=== PATIENT | female | born 1950 | race Caucasian/White ===

== ENCOUNTER 2020-03-07 06:08 | Outpatient (REF) | payer MEDICARE, SELFPAY ==
[2020-03-07 07:32] LABS: Glucose Urine UA NEG (NEG); Leukocyte Esterase Urine 2+ (NEG); Nitrite Urine NEG (NEG); PH 6.5 (5.0-8.0); Specific Gravity - Urine <= 1.005 (1.005-1.025); Urine Blood 2+ (NEG); Urine Ketones NEG (NEG); Urine Protein NEG (NEG-TRACE)
[2020-03-07 07:34] LABS: Appearance Urine CLOUDY; Color Urine YELLOW
[2020-03-07 07:47] LABS: Bacteria Urine 3+ /LPF; Squamous Epithelial Cell Urine 1+ /LPF
== END 2020-03-07 06:09 | disposition home or self-care (01) ==
LOC: HO.LAB 06:08
PROVIDERS: PCP Internal Medicine; Visit Provider Internal Medicine
DX: R30.0 Dysuria (principal)
CPT/HCPCS: 81001

== ENCOUNTER 2020-03-29 14:20 | Outpatient (REF) | payer MEDICARE, SELFPAY ==
[2020-03-29 16:32] LABS: Vitamin D 25-OH Total 25.1 ng/mL (>30)
== END 2020-03-29 14:21 | disposition home or self-care (01) ==
LOC: HO.LAB 14:20
PROVIDERS: PCP Internal Medicine; Visit Provider Surgery
DX: E55.9 Vitamin D deficiency, unspecified (principal)
CPT/HCPCS: 82306

== ENCOUNTER → 2020-05-23 07:55 | Outpatient (BNVA) | payer MEDICARE, SELFPAY | PROVIDERS: PCP Internal Medicine; Visit Provider Obstetrics & Gynecology | DX: N81.11 Cystocele, midline (principal) | CPT/HCPCS: 57160; 99212 ==

== ENCOUNTER → 2020-05-25 10:49 | Outpatient (BNVA) | payer MEDICARE, SELFPAY | PROVIDERS: PCP Internal Medicine; Visit Provider Urology | DX: N81.11 Cystocele, midline (principal) | CPT/HCPCS: 99202 ==

== ENCOUNTER → 2020-05-30 08:11 | Outpatient (BNVA) | payer MEDICARE, SELFPAY | PROVIDERS: PCP Internal Medicine; Visit Provider Dietitian, Registered | DX: Z76.89 Persons encountering health services in other specified circumstances (principal) ==

== ENCOUNTER 2020-05-30 15:54 | Outpatient (REF) | payer MEDICARE, SELFPAY | END 2020-05-30 15:55 | disposition home or self-care (01) | LOC: HO.LAB 15:54 | PROVIDERS: PCP Internal Medicine; Visit Provider Internal Medicine | DX: Z20.828 Contact with and (suspected) exposure to other viral communicable diseases (principal) | CPT/HCPCS: 36415; C9803; U0003 ==

== ENCOUNTER → 2020-06-08 10:59 | Outpatient (BNVA) | payer MEDICARE, SELFPAY | PROVIDERS: PCP Internal Medicine; Visit Provider Urology | DX: N81.11 Cystocele, midline (principal); Z79.899 Other long term (current) drug therapy | CPT/HCPCS: 52000; 99212 ==

== ENCOUNTER 2020-06-15 05:57 | Outpatient (REF) | payer MEDICARE, SELFPAY ==
[2020-06-15 07:58] LABS: MANUAL DIFF FLAG NO
[2020-06-15 08:12] LABS: Basophils Percent Auto 0.2 % (0-2); Eosinophils Absolute Auto 0.3 X10*3/uL (0.0-0.4); Eosinophils Percent Auto 7.7 % (0-4); Hematocrit 36.1 % (37-47); Hemoglobin 11.7 g/dl (12.0-16.0); Imm Gran Abs Auto 0.01 X10*3/uL (0.00-0.03); Imm Gran Pct Auto 0.2 % (0.0-0.4); Lymphocytes Absolute Auto 1.4 X10*3/uL (1.2-4.9); Lymphocytes Percent Auto 32.5 % (20-40); Mean Corpuscular HGB Conc 32.4 g/dl (31.0-35.0); Mean Corpuscular Hemoglobin 29.5 pg (27.0-33.0); Mean Corpuscular Volume 91.2 fL (80-98); Mean Platelet Volume 10.6 fL (9.4-12.3); Monocytes Absolute Auto 0.5 X10*3/uL (0.1-1.2); Monocytes Percent Auto 11.1 % (2-11); Neutrophils Percent Auto 48.3 % (45-73); Platelet Count 156 X10*3/uL (160-400); Red Blood Count 3.96 X10*6/uL (4.20-5.50); Red Cell Distribution Width 13.2 % (11.0-16.0); White Blood Count 4.2 X10*3/uL (4.8-10.8)
[2020-06-15 08:50] LABS: Alanine Aminotransferase 32 U/L (0-31); Alkaline Phosphatase 117 U/L (39-117); Anion Gap 12 (12-20); Aspartate Amino Transferase 27 U/L (5-31); Bilirubin Total 0.5 mg/dL (0.0-1.0); Blood Urea Nitrogen 32 mg/dL (9-16); Calcium 9.2 mg/dL (8.4-10.2); Carbon Dioxide 27 mmol/L (22-29); Chloride 107 mmol/L (96-108); Cholesterol 105 mg/dL; Estimated Glomerular Filt Rate > 60; Glucose Random 79 mg/dL (60-115); HDL Cholesterol 35 mg/dL; LDL Cholesterol Calculated 53 mg/dl; Potassium 4.4 mmol/l (3.3-5.1); Sodium 142 mmol/L (135-145); Total Protein 6.2 g/dL (6.5-8.0); Triglycerides 89 mg/dL
[2020-06-15 08:54] LABS: Erythrocyte Sedimentation Rate 23 MM/HR (0-20)
[2020-06-15 09:19] LABS: Free T4 (Free Thyroxine) 1.08 ng/dL (0.71-1.85); Thyroid Stimulating Hormone 1.26 uIU/mL (0.32-4.0)
== END 2020-06-15 05:58 | disposition home or self-care (01) ==
LOC: HO.LAB 05:57
PROVIDERS: Visit Provider Internal Medicine
DX: I10 Essential (primary) hypertension (principal); M50.30 Other cervical disc degeneration, unspecified cervical region; J44.9 Chronic obstructive pulmonary disease, unspecified; E78.00 Pure hypercholesterolemia, unspecified
CPT/HCPCS: 36415; 80053; 80061; 84439; 84443; 85025; 85652

== ENCOUNTER 2020-06-15 19:14 | Emergency (ER) | payer MEDICARE, SELFPAY ==
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
[2020-06-15 19:57] VITALS: BP 155/80; PULSE 68; RESP 16; TEMP 36.9; O2SAT 96
--- NOTE | 2020-06-15 20:20 | PC.NURSE ---
pharmacy called for pain med not loaded in pyxis
[2020-06-15] MEDS: Morphine Sulfate 10 MG/ML CARTRIDGE 5 MG IM (20:35)
--- NOTE | 2020-06-15 20:39 | PC.NURSE ---
pt medicated with 5mg morphine as charted to lt deltoid for 10/10 pain to right arm. +cms
[2020-06-15 22:00] VITALS: BP 153/60; PULSE 65; RESP 16; TEMP 36.6; O2SAT 99
== END 2020-06-15 22:38 | disposition home or self-care (01) ==
PROVIDERS: Emergency Provider Emergency Medicine; PCP Internal Medicine
DX: S62.101A Fracture of unspecified carpal bone, right wrist, initial encounter for closed fracture (principal); S62.91XA Unspecified fracture of right hand, initial encounter for closed fracture; M79.641 Pain in right hand; W17.81XA Fall down embankment (hill), initial encounter; Y93.23 Activity, snow (alpine) (downhill) skiing, snowboarding, sledding, tobogganing and snow tubing; Y92.89 Other specified places as the place of occurrence of the external cause; Y99.8 Other external cause status; Z79.899 Other long term (current) drug therapy
CPT/HCPCS: 73110; 73130; 99283; J2270

== ENCOUNTER 2020-06-19 09:52 | Outpatient (REF) | payer MEDICARE, SELFPAY ==
--- NOTE | 2020-06-19 11:15 | XR_ITS ---
EXAMINATION: XR WRIST, RIGHT CLINICAL INFORMATION: M25.531 - Pain in right wrist. Fractures. Follow-up. COMPARISON: Radiographs right hand wrist 06/15/2020, right hand 12/25/2017. TECHNIQUE: PA, lateral, and oblique views of the right wrist. FINDINGS: There is fracture distal radial metaphysis with transverse component and probable vertical component to the distal radioarticular surface without depression. There is mild impaction. Alignment is similar to prior study 06/15/2020. There are degenerative changes again seen lateral carpus. Spiral fracture neck fifth metacarpal is again seen without change in alignment. There is a cleft or nondisplaced fracture medial base third finger proximal phalanx similar to prior study. No acute fracture or dislocation or change in alignment. XR/XR wrist RT min 3V IMPRESSION: 1. Fractures distal radius and fifth metacarpal unchanged in alignment 06/15/2020. 2. Nondisplaced fracture versus fine linear cleft medial base third finger proximal phalanx, stable.
== END 2020-06-19 09:53 | disposition home or self-care (01) ==
LOC: HO.HOSX 09:52
PROVIDERS: PCP Internal Medicine; Visit Provider Orthopaedic Surgery
DX: S52.501A Unspecified fracture of the lower end of right radius, initial encounter for closed fracture (principal); X58.XXXA Exposure to other specified factors, initial encounter; Y93.23 Activity, snow (alpine) (downhill) skiing, snowboarding, sledding, tobogganing and snow tubing; Y92.9 Unspecified place or not applicable; Y99.8 Other external cause status; M25.531 Pain in right wrist; D64.9 Anemia, unspecified; J45.909 Unspecified asthma, uncomplicated; J44.9 Chronic obstructive pulmonary disease, unspecified; I10 Essential (primary) hypertension; E78.00 Pure hypercholesterolemia, unspecified; Z88.2 Allergy status to sulfonamides; Z88.5 Allergy status to narcotic agent; Z88.8 Allergy status to other drugs, medicaments and biological substances; Z91.011 Allergy to milk products
CPT/HCPCS: 25600; 73110; 99202

== ENCOUNTER 2020-06-20 08:26 | Day surgery (SDC) | payer MEDICARE, SELFPAY ==
--- NOTE | 2020-06-19 12:20 | P.CONAN_ITS ---
Documented by User: Nia Davis 06/19/20 12:23 HPI - Anesthesia Eval Consult details Narrative: 69yo F for Cystocele Repair chronic opioids PMFSH Past Medical History Medical History Anemia Asthma COPD (chronic obstructive pulmonary disease) Cystocele DDD (degenerative disc disease), cervical Degenerative disc disease, cervical Deviated septum Esophageal stricture GERD (gastroesophageal reflux disease) Hemorrhoids History of duodenal ulcer History of esophageal dilatation Hypercholesterolemia Hypertension Impaired glucose tolerance Obstructive sleep apnea Osteoarthritis of knees, bilateral Osteopenia Peptic ulcer disease Peripheral neuropathy Peripheral vascular disease RSD (reflex sympathetic dystrophy) Small bowel obstruction Tubular adenoma of colon Vitamin D deficiency Family History Family History Father No problems noted. Mother No problems noted. Surgical History Surgical History History of arthroscopy of left knee History of cholecystectomy History of hemorrhoidectomy History of nasal surgery History of repair of hiatal hernia History of tonsillectomy History of tubal ligation History of umbilical hernia repair Hx of gastric bypass Social History Social History Alcohol intake: never Smoking Status: Never smoker Use of substances other than those prescribed or required for medical reasons: No Have you been hit, kicked, punched, or otherwise hurt by someone within the past year? If so, by whom?: No Advance Directives: No Advance Directives Information Provided: No Recently lost weight without trying: No Current occupational status: retired Current occupation: right handed Gender identity: female Meds Allergies Allergy/AdvReac Type Severity Reaction Status Date / Time hydrochlorothiazide Allergy Severe ANGIOEDEMA Verified 06/19/20 10:17 [HYDROCHLOROTHIAZIDE] lisinopril [LISINOPRIL] Allergy Severe ANGIOEDEMA Verified 06/19/20 10:17 Sulfa (Sulfonamide Allergy Severe FACIAL Verified 06/19/20 10:17 Antibiotics) SWELLING [SULFA (SULFONAMIDE ANTIBIOTICS)] iron [IRON] Allergy Intermediate NAUSEA Verified 06/19/20 10:17 lactose [LACTOSE] Allergy Intermediate DIARRHEA Verified 06/19/20 10:17 sertraline [From ZOLOFT] Allergy Intermediate INSOMNIA Verified 06/19/20 10:17 codeine Allergy Unknown Unknown Verified 06/19/20 10:17 Home Medications Medication Instructions Recorded Confirmed Type betamethasone, augmented 0.05 % 1 applic TOPICAL DAILY PRN 02/28/20 06/08/20 History topical ointment cholecalciferol (vitamin D3) 50 50 mcg PO DAILY 02/28/20 06/08/20 History mcg (2,000 unit) tablet melatonin 3 mg capsule 3 mg PO BEDTIME PRN 02/28/20 06/08/20 History triamcinolone acetonide 0.5 % 1 applic TOPICAL DAILY 02/28/20 06/08/20 History topical cream Exam Exam Date and Time: June 19, 2020 1220 Pertinent Lab Results Pertinent Lab Results: Laboratory Tests 06/15/20 06/15/20 06:04 06:04 WBC 4.2 L Hgb 11.7 L Hct 36.1 L Plt Count 156 L Sodium 142 Potassium 4.4 Chloride 107 Carbon Dioxide 27 BUN 32 H Creatinine 0.70 Assessment and Plan Assessment Anesthesia Assessment: Chart Reviewed Documented by User: Sanjuanita Read 06/20/20 09:10 [facility] Past Medical History Medical History Anemia Asthma COPD (chronic obstructive pulmonary disease) Cystocele DDD (degenerative disc disease), cervical Degenerative disc disease, cervical Deviated septum Esophageal stricture GERD (gastroesophageal reflux disease) Hemorrhoids History of duodenal ulcer History of esophageal dilatation Hypercholesterolemia Hypertension Impaired glucose tolerance Obstructive sleep apnea Osteoarthritis of knees, bilateral Osteopenia Peptic ulcer disease Peripheral neuropathy Peripheral vascular disease RSD (reflex sympathetic dystrophy) Small bowel obstruction Tubular adenoma of colon Vitamin D deficiency Family History Family History Father No problems noted. Mother No problems noted. Surgical History Surgical History History of arthroscopy of left knee History of cholecystectomy History of hemorrhoidectomy History of nasal surgery History of repair of hiatal hernia History of tonsillectomy History of tubal ligation History of umbilical hernia repair Hx of gastric bypass Social History Social History Alcohol intake: never Smoking Status: Never smoker Use of substances other than those prescribed or required for medical reasons: No Have you been hit, kicked, punched, or otherwise hurt by someone within the past year? If so, by whom?: No Advance Directives: No Advance Directives Information Provided: No Recently lost weight without trying: No Current occupational status: retired Current occupation: right handed Gender identity: female Meds Allergies Allergy/AdvReac Type Severity Reaction Status Date / Time hydrochlorothiazide Allergy Severe ANGIOEDEMA Verified 06/19/20 10:17 [HYDROCHLOROTHIAZIDE] lisinopril [LISINOPRIL] Allergy Severe ANGIOEDEMA Verified 06/19/20 10:17 Sulfa (Sulfonamide Allergy Severe FACIAL Verified 06/19/20 10:17 Antibiotics) SWELLING [SULFA (SULFONAMIDE ANTIBIOTICS)] iron [IRON] Allergy Intermediate NAUSEA Verified 06/19/20 10:17 lactose [LACTOSE] Allergy Intermediate DIARRHEA Verified 06/19/20 10:17 sertraline [From ZOLOFT] Allergy Intermediate INSOMNIA Verified 06/19/20 10:17 codeine Allergy Unknown Unknown Verified 06/19/20 10:17 Home Medications Medication Instructions Recorded Confirmed Type betamethasone, augmented 0.05 % 1 applic TOPICAL DAILY PRN 02/28/20 06/08/20 History topical ointment cholecalciferol (vitamin D3) 50 50 mcg PO DAILY 02/28/20 06/08/20 History mcg (2,000 unit) tablet melatonin 3 mg capsule 3 mg PO BEDTIME PRN 02/28/20 06/08/20 History triamcinolone acetonide 0.5 % 1 applic TOPICAL DAILY 02/28/20 06/08/20 History topical cream Exam Airway Mallampati Class: II TM Dist: >3cm Neck ROM: Full Denture: Upper and Lower Assessment and Plan Assessment Anesthesia Assessment: Anesthesia Plan Discussed and Chart Reviewed Final Anesthetic Review NPO: Yes ASA Class: III Final Preanesthetic Review: No Changes in Pt Med Stat, Meds/Allgs Chart Reviewed, Consent Obtained/Reviewed and Anes Risks/Benef Reviewed Patient Risk: Intermediate Procedure Risk: Low Assessment/Block/Sedation in SS: Assess/Block/Sedation- Anesthetic Plan Anesthetic Plan: GA Disposition: Standard PACU
[2020-06-19 16:07] VITALS: BMI 28.3
[2020-06-20] VITALS (11 sets, daily range): BP systolic 134–166; BP diastolic 51–80; PULSE 50–64; RESP 16–18; TEMP 36.4–36.9; O2SAT 92–98
[2020-06-20] MEDS: Lactated Ringers 1,000 ML 100 ML IVCONT (09:16)
[2020-06-20] MEDS: ceFAZolin Sodium/Dextrose,Iso 2 GM/50 ML PIGGYBACK IV (09:30)
--- NOTE | 2020-06-20 10:29 | PM.OP ---
Brief Operative Note Date of Service: 06/20/20 Pre-op diagnosis: cystocele Post-op diagnosis: same Procedure: cystocele repair Implants: mesh Surgeon: Jaden Chandler III, MD Anesthesia: GLMA and local Estimated blood loss (mL): 100 Pathology: none sent Condition: stable Disposition: same day
[2020-06-20] MEDS: oxyCODONE HCl Immed Release 5 MG TABLET PO (10:57)
[2020-06-20] MEDS: fentaNYL citrate/PF 100 MCG/2 ML VIAL 50 MCG IVPUSH ×2 (10:57→11:06)
--- NOTE | 2020-06-20 12:09 | OP_ITS ---
SURGEON: Jaden Chandler III, MD PREOPERATIVE DIAGNOSIS: Cystocele. POSTOPERATIVE DIAGNOSIS: Cystocele. PROCEDURE PERFORMED: Cystocele repair with mesh. ESTIMATED BLOOD LOSS: 100 mL. COMPLICATIONS: None. ANESTHESIA: General. ASSISTANTS: SPECIMENS: None. DRAINS: Rouse catheter. DESCRIPTION OF PROCEDURE: The patient was taken to the operating room. After adequate anesthesia was obtained, a time-out was done demonstrating correct patient, correct procedure. Following this, the patient was placed in dorsal lithotomy position and had a Rouse catheter vaginal retractor placed. The patient had the midpoint of her cystocele grasped with an Allis and then pulled forward, and the anterior vaginal wall was injected with local. Midline incision was made and carried out laterally to reduce the cystocele, which was done bluntly and sharply blunt labial fell into the plane, was able to on both sides to the patient's sacrospinous ligament. The ligament is not as defined as one would like, went 1 cm off the tubercle, and placed bilateral sutures with the Capio device. These are nonabsorbable sutures, fixed in place, and were pulled through the vagina and clamped. At this point, a piece of mesh was cut to fit and Capio suture was used to elevate into place with complete reduction of the patient's bladder. It was then measured out for the introitus and was secured on either side with an absorbable suture lying flat with no curling. The excess mesh was removed. The patient had irrigation done and subsequently had closure of the vaginal incision, Rouse catheter was left in place during the procedure. The patient did undergo cystoscopy prior to placing any of the sutures to make sure that there was no injury to the patient's bladder. There was a slight tinge of coming from the Rouse, which cleared easily with irrigation. The bladder was filled multiple times. There was no leak anywhere. The patient had a very thin detrusor and mucosa was visible. After reduction, the urine remained clear. The irrigation remained consistent with no leakage, and there was no fluid seen coming directly from the vagina with it being dry. After procedure, the patient was set up for Rouse catheter drainage and drained clear-colored urine. The patient tolerated the procedure well with no complications. Jaden Chandler III, MD SS/MODL / [id number]
--- NOTE | 2020-06-20 12:23 | HO.POSTANES ---
Post Anesthesia Evaluation Post Anesthesia Evaluation Vital Signs: Vital Signs Temp Pulse Resp BP Pulse Ox 06/20/20 11:32 97.6 F 58 18 152/71 H 96 06/20/20 11:16 56 16 134/62 98 06/20/20 11:07 50 16 153/71 H 96 06/20/20 11:06 16 06/20/20 11:01 55 18 155/72 H 92 06/20/20 10:57 18 06/20/20 10:46 57 18 166/77 H 94 06/20/20 10:41 58 16 153/51 H 95 06/20/20 10:36 55 16 158/77 H 95 06/20/20 10:31 97.7 F 61 16 145/78 H 95 06/20/20 08:52 98.4 F 64 18 160/80 H 93 Anesthesia: General LMA Mental Status: Awake Pain Control: Satisfactory Nausea/Vomiting: None Hydration: Adequate Anesthesia-Related Issues: No Anes. Related Issues
== END 2020-06-20 12:30 | disposition home or self-care (01) ==
PROVIDERS: PCP Internal Medicine; Visit Provider Urology
PROC: (CPT 57240; principal; 2020-06-20 10:10)
DX: N81.10 Cystocele, unspecified (principal); I10 Essential (primary) hypertension; J44.9 Chronic obstructive pulmonary disease, unspecified; G47.33 Obstructive sleep apnea (adult) (pediatric); Z79.899 Other long term (current) drug therapy; G90.511 Complex regional pain syndrome I of right upper limb; G90.523 Complex regional pain syndrome I of lower limb, bilateral
CPT/HCPCS: 57240; 57267; C1781; J0131; J0690; J1100; J2405; J3010

== ENCOUNTER 2020-06-26 09:48 | Outpatient (REF) | payer MEDICARE, SELFPAY ==
--- NOTE | 2020-06-26 10:13 | XR_ITS ---
EXAMINATION: XR WRIST, RIGHT CLINICAL INFORMATION: Fracture COMPARISON: Right hand x-ray obtained the same day and previous x-rays most recent 06/19/2020 TECHNIQUE: PA, lateral, and oblique views of the right wrist. FINDINGS: There is a fracture of the distal radius. This appears comminuted with a transverse component as well as a vertical component extending to the radiocarpal joint. This is slightly comminuted. There is slight dorsal displacement of the fracture fragment seen on the lateral view. Fracture appears unchanged from prior exam 06/19/2020. There is a nondisplaced fracture of the distal shaft of the fifth metacarpal bone that is unchanged. There is a small avulsion fracture of the proximal phalanx of the third finger at the MCP joints that is unchanged. There are degenerative changes at the first LONGTERM joint and radiocarpal joint. There is soft tissue swelling of the wrist overlying the distal radius fracture. XR/XR wrist RT min 3V IMPRESSION: Stable appearance to the comminuted slightly impacted intra-articular right distal radius fracture. Stable appearance to the third proximal phalanx fracture and fifth metacarpal shaft fracture. Degenerative changes at the wrist. Diffuse soft tissue swelling.
--- NOTE | 2020-06-26 10:43 | XR_ITS ---
EXAMINATION: XR HAND, RIGHT CLINICAL INFORMATION: Pain in right hand COMPARISON: Right wrist radiograph from 06/19/2020 TECHNIQUE: Four views of the right hand. FINDINGS: Redemonstration of fractures involving the distal radial metadiaphysis and distal fifth metacarpal diaphysis, unchanged in alignment. Fracture of the small ulnar base of the third proximal phalanx is also noted. There is no new acute visible fracture or dislocation. Degenerative changes of the first carpometacarpal and fifth distal interphalangeal joints. Soft tissues are unremarkable. XR/XR hand RT min 3V IMPRESSION: 1. Redemonstration of fractures involving the distal radius, fifth metacarpal, base of the third proximal phalanx. 2. No new acute visible fractures or dislocations.
== END 2020-06-26 09:49 | disposition home or self-care (01) ==
LOC: HO.HOSX 09:48
PROVIDERS: Visit Provider Orthopaedic Surgery
DX: M79.641 Pain in right hand (principal); M25.531 Pain in right wrist; S52.501A Unspecified fracture of the lower end of right radius, initial encounter for closed fracture; S62.336A Displaced fracture of neck of fifth metacarpal bone, right hand, initial encounter for closed fracture; S62.612A Displaced fracture of proximal phalanx of right middle finger, initial encounter for closed fracture; Y93.23 Activity, snow (alpine) (downhill) skiing, snowboarding, sledding, tobogganing and snow tubing
CPT/HCPCS: 73110; 73130; 99212

== ENCOUNTER → 2020-07-06 15:21 | Outpatient (BNVA) | payer MEDICARE, SELFPAY | PROVIDERS: PCP Internal Medicine; Visit Provider Urology | DX: R30.0 Dysuria (principal) | CPT/HCPCS: 81002; 99212 ==

== ENCOUNTER 2020-07-17 08:40 | Outpatient (REF) | payer MEDICARE, SELFPAY ==
--- NOTE | ~2020-07-17 | XR_ITS ---
EXAMINATION: XR WRIST, RIGHT CLINICAL INFORMATION: Fracture COMPARISON: Previous x-ray 06/26/2020 TECHNIQUE: PA, lateral, and oblique views of the right wrist. FINDINGS: There is a transverse comminuted slightly impacted fracture of the distal radius. There is a slight dorsal angulation and displacement seen on the lateral view. Alignment appears unchanged. Fracture line is still seen. There is minimal periosteal reaction. There is an nondisplaced fracture of the distal shaft of the fifth metacarpal bone. Fracture line appears more indistinct and there is increased bony callus formation suggestive of healing. There is a minimally displaced fracture of the proximal phalanx of the third finger intra-articular with the MCP joint There is arthritis at the first CHCF joint. This appears unchanged without evidence of healing.There is soft tissue swelling adjacent to the distal radius fracture. XR/XR wrist RT min 3V IMPRESSION: No change in right distal radius and proximal phalanx third finger fractures. Healing fracture of the distal shaft of the fifth metacarpal carpal bone.
== END 2020-07-17 08:41 | disposition home or self-care (01) ==
LOC: HO.XRAY 08:40
PROVIDERS: PCP Internal Medicine; Visit Provider Orthopaedic Surgery
DX: M25.531 Pain in right wrist (principal); S62.612A Displaced fracture of proximal phalanx of right middle finger, initial encounter for closed fracture; S62.336A Displaced fracture of neck of fifth metacarpal bone, right hand, initial encounter for closed fracture; S52.501A Unspecified fracture of the lower end of right radius, initial encounter for closed fracture
CPT/HCPCS: 73110; 99212

== ENCOUNTER 2020-08-14 05:56 | Outpatient (REF) | payer MEDICARE, MEDICAID, SELFPAY ==
[2020-08-14 08:37] LABS: Glucose Urine UA NEG (NEG); Leukocyte Esterase Urine 2+ (NEG); Nitrite Urine POS (NEG); PH 5.5 (5.0-8.0); Specific Gravity - Urine >= 1.030 (1.005-1.025); UACC Culture Trigger YES; Urine Blood 1+ (NEG); Urine Ketones 5 MG/DL (NEG); Urine Protein 1+ MG/DL (NEG-TRACE)
[2020-08-14 08:40] LABS: Appearance Urine CLOUDY; Color Urine YELLOW
[2020-08-14 08:59] LABS: Bacteria Urine 2+ /LPF; RBC Urine 0 /HPF (0); Squamous Epithelial Cell Urine 1+ /LPF; WBC Urine TNTC /HPF (0-4)
== END 2020-08-14 05:57 | disposition home or self-care (01) ==
LOC: HO.LAB 05:56
PROVIDERS: PCP Internal Medicine; Visit Provider Internal Medicine
DX: R30.0 Dysuria (principal)
CPT/HCPCS: 81001; 81003; 87086; 87088; 87186

== ENCOUNTER 2020-08-16 09:53 | Outpatient (REF) | payer MEDICARE, MEDICAID, SELFPAY | END 2020-08-16 09:54 | disposition home or self-care (01) | LOC: HO.LAB 09:53 | PROVIDERS: Visit Provider Internal Medicine | DX: Z20.822 Contact with and (suspected) exposure to COVID-19 (principal) | CPT/HCPCS: 36415; C9803; U0003; U0005 ==

== ENCOUNTER → 2020-08-22 08:07 | Outpatient (BNVA) | payer MEDICARE, MEDICAID, SELFPAY | PROVIDERS: PCP Internal Medicine; Visit Provider Physician Assistant | DX: E66.9 Obesity, unspecified (principal); K91.2 Postsurgical malabsorption, not elsewhere classified; Z90.3 Acquired absence of stomach [part of] | CPT/HCPCS: Q3014 ==

== ENCOUNTER → 2020-08-28 08:46 | Outpatient (BNVA) | payer MEDICARE, MEDICAID, SELFPAY | PROVIDERS: PCP Internal Medicine; Visit Provider Anesthesiology | DX: M47.812 Spondylosis without myelopathy or radiculopathy, cervical region (principal); M50.30 Other cervical disc degeneration, unspecified cervical region | CPT/HCPCS: 99202 ==

== ENCOUNTER 2020-09-19 08:21 | Outpatient (REF) | payer MEDICARE, MEDICAID, SELFPAY ==
--- NOTE | ~2020-09-19 | FL_ITS ---
EXAMINATION: XR FLUOROSCOPY UPPER GI WITH AIR XR SMALL BOWEL FOLLOW-THROUGH CLINICAL INFORMATION: History of bariatric surgery. COMPARISON: CT scan of the abdomen and pelvis 06/05/2016. TECHNIQUE: Gastric and esophageal distention was achieved with oral administration of water and effervescent granules. This was followed by the administration of thick barium contrast material. Multiple images the esophagus were obtained in the upright LPO and lateral projections. The patient was then placed in the horizontal position and multiple additional views of the esophagus and stomach were obtained during and after the oral administration of regular consistency barium material. Successive spot radiographs were then obtained at 30 minute, 60 minute, and 120 minute time points to evaluate the gradual transit of contrast through the small bowel. After the contrast reached the terminal ileum then additional spot images of the abdomen were obtained. FLUOROSCOPY TIME: 2.7 minutes TOTAL DOSE: 144 mGy IMAGES: 54 FINDINGS: The swallowing mechanism is grossly normal. There is no evidence of an esophageal mass, diverticulum, ulceration, or fixed stricture. Mucosal surfaces are unremarkable. The lower esophageal sphincter relaxes normally. 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 The gastric remnant is unremarkable. No evidence of a stricture at the gastrojejunal anastomosis. The alimentary limb is unremarkable with no identifiable stricture. No abnormal finding at the expected location of the jejunojejunostomy. There is some esophageal dysmotility with multiple tertiary nonpropulsive contractions visualized within the mid to distal third of the thoracic esophagus. Additional spot projections and fluoroscopic runs of the small bowel reveal no evidence of focal narrowing, tethering, or obstruction of the small bowel. No abnormal anatomic configuration of the small bowel. Normal small bowel folds. The terminal ileum is normal with no evidence of an ileocecal obstruction. 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 There is some esophageal dysmotility with multiple tertiary nonpropulsive contractions visualized within the mid to distal third of the thoracic esophagus. Otherwise unremarkable examination. No stricture or obstruction. No abnormal tethering or abnormal anatomic configuration.
== END 2020-09-19 08:22 | disposition home or self-care (01) ==
LOC: HO.XRAY 08:21
PROVIDERS: Visit Provider Physician Assistant
DX: R10.9 Unspecified abdominal pain (principal); Z98.84 Bariatric surgery status
CPT/HCPCS: 74246; 74248

== ENCOUNTER 2020-10-03 07:10 | Outpatient (REF) | payer MEDICARE, MEDICAID, SELFPAY ==
--- NOTE | ~2020-10-03 | FL_ITS ---
EXAMINATION: XR FLUOROSCOPY WITH IMAGES CLINICAL INFORMATION: M47.812 - Spondylosis without myelopathy or radiculopathy COMPARISON: MRI cervical spine 02/15/2020 TECHNIQUE: Fluoroscopy performed by eJssi Rendon NP. Fluoroscopy time: 0.4 minutes DAP: 1.26 Gycm2 Images: 4 FINDINGS: There are 4 spinal needles overlying the left lateral masses cervical spine approximately levels of C2, C3, C4, and C5. There is some contrast in the paraspinal soft tissues and nerve sheaths with transforaminal epidural extension. No visible vascular communication. FL/FL guidance in treatment room IMPRESSION: Fluoroscopy for pain management procedures.
== END 2020-10-03 07:11 | disposition home or self-care (01) ==
LOC: HO.RADIR 07:10
PROVIDERS: Visit Provider Anesthesiology
DX: M47.812 Spondylosis without myelopathy or radiculopathy, cervical region (principal); M50.30 Other cervical disc degeneration, unspecified cervical region; I10 Essential (primary) hypertension; E78.00 Pure hypercholesterolemia, unspecified; Z88.5 Allergy status to narcotic agent; Z88.2 Allergy status to sulfonamides; Z88.8 Allergy status to other drugs, medicaments and biological substances; E55.9 Vitamin D deficiency, unspecified
CPT/HCPCS: 64490; 64491; 64492; J3300; Q9967

== ENCOUNTER → 2020-10-05 09:53 | Outpatient (BNVA) | payer OTHER, SELFPAY | PROVIDERS: PCP Internal Medicine; Referring Provider Internal Medicine; Visit Provider Physician Assistant ==

== ENCOUNTER 2020-10-13 13:26 | Outpatient (REF) | payer OTHER, SELFPAY ==
[2020-10-13 14:16] LABS: MANUAL DIFF FLAG NO
[2020-10-13 14:22] LABS: Eosinophils Absolute Auto 0.1 X10*3/uL (0.0-0.4); Eosinophils Percent Auto 1.2 % (0-4); Hematocrit 37.5 % (37-47); Hemoglobin 12.2 g/dl (12.0-16.0); Imm Gran Abs Auto 0.02 X10*3/uL (0.00-0.03); Imm Gran Pct Auto 0.3 % (0.0-0.4); Lymphocytes Absolute Auto 1.2 X10*3/uL (1.2-4.9); Mean Corpuscular HGB Conc 32.5 g/dl (31.0-35.0); Mean Corpuscular Hemoglobin 29.8 pg (27.0-33.0); Mean Corpuscular Volume 91.7 fL (80-98); Mean Platelet Volume 10.8 fL (9.4-12.3); Monocytes Absolute Auto 0.6 X10*3/uL (0.1-1.2); Monocytes Percent Auto 7.7 % (2-11); Neutrophils Absolute Auto 5.5 X10*3/uL (2.0-8.3); Neutrophils Percent Auto 74.8 % (45-73); Platelet Count 193 X10*3/uL (160-400); Red Blood Count 4.09 X10*6/uL (4.20-5.50); Red Cell Distribution Width 13.6 % (11.0-16.0); White Blood Count 7.3 X10*3/uL (4.8-10.8)
[2020-10-13 14:25] LABS: Glucose Urine UA NEG (NEG); Leukocyte Esterase Urine NEG (NEG); Nitrite Urine NEG (NEG); Specific Gravity - Urine >= 1.030 (1.005-1.025); Urine Blood NEG (NEG); Urine Ketones NEG (NEG); Urine Protein TRACE MG/DL (NEG-TRACE)
[2020-10-13 14:28] LABS: Appearance Urine HAZY; Color Urine YELLOW
[2020-10-13 15:01] LABS: Alanine Aminotransferase 38 U/L (0-31); Albumin Level 4.4 g/dL (3.5-5.0); Alkaline Phosphatase 133 U/L (39-117); Anion Gap 14 (12-20); Aspartate Amino Transferase 19 U/L (5-31); Bilirubin Total 0.6 mg/dL (0.0-1.0); Blood Urea Nitrogen 25 mg/dL (9-16); Calcium 9.3 mg/dL (8.4-10.2); Carbon Dioxide 24 mmol/L (22-29); Chloride 107 mmol/L (96-108); Cholesterol 113 mg/dL; Estimated Glomerular Filt Rate > 60; Glucose Random 89 mg/dL (60-115); HDL Cholesterol 47 mg/dL; LDL Cholesterol Calculated 49 mg/dl; Potassium 4.5 mmol/L (3.3-5.1); Sodium 140 mmol/L (135-145); Total Protein 6.5 g/dL (6.5-8.0); Triglycerides 85 mg/dL
[2020-10-13 15:25] LABS: Free T4 (Free Thyroxine) 1.13 ng/dL (0.71-1.85); Thyroid Stimulating Hormone 0.57 uIU/mL (0.32-4.0); Vitamin D 25-OH Total 20.7 ng/mL (>30)
[2020-10-13 16:36] LABS: Folate > 20.0 ng/mL (> or = 4.0); Vitamin B12 800 pg/mL (200-900)
== END 2020-10-13 13:27 | disposition home or self-care (01) ==
LOC: HO.HMGCLDS 13:26
PROVIDERS: PCP Internal Medicine; Visit Provider Internal Medicine
DX: I10 Essential (primary) hypertension (principal); E78.00 Pure hypercholesterolemia, unspecified; R30.0 Dysuria
CPT/HCPCS: 36415; 80053; 80061; 81003; 82306; 82607; 82746; 84439; 84443; 85025

== ENCOUNTER 2020-10-13 17:12 | Inpatient (IN) | payer OTHER, SELFPAY ==
--- NOTE | ~2020-10-13 | CT_ITS ---
EXAMINATION: CT ABDOMEN AND PELVIS WITH CONTRAST CLINICAL INFORMATION: Epigastric pain COMPARISON: 09/28/2019 TECHNIQUE: Multidetector volumetric images were obtained from the superior aspect of the liver through the pubic symphysis following administration 85 mL of Omnipaque 350 intravenous contrast. Sagittal and coronal reformatted images were obtained on the technologist's workstation. Oral contrast: No This CT examination was performed using dose optimization techniques as appropriate, variously including the following: *Automated exposure control *Adjustment of mA and/or kV according to patient size (this includes techniques or standardized protocols for targeted exams where dose is matched to indication/reason for exam; i.e. extremities or head) *Use of iterative reconstruction technique DLP: 561 mGy-cm FINDINGS: LUNG BASES: The visualized lung bases demonstrate minimal dependent atelectasis. LIVER, GALLBLADDER, AND BILIARY TREE: The liver is normal in size, shape, and attenuation. There is moderate intrahepatic and extra hepatic biliary ductal dilatation, similar to 09/28/2019. Status post cholecystectomy. PANCREAS: There is partial fatty atrophy of the pancreas. SPLEEN: Unremarkable. ADRENAL GLANDS: Redemonstrated left adrenal nodule measuring 2.0 cm in diameter. KIDNEYS AND URETERS: The kidneys are normal in size, shape, and attenuation. No hydronephrosis, hydroureter, or obstructing calculi seen. No perinephric stranding. BLADDER: Unremarkable. GASTROINTESTINAL TRACT: Postsurgical changes noted in the stomach and proximal small bowel in keeping with history of gastric bypass surgery. No evidence of bowel obstruction. No significant bowel wall thickening is seen. Moderate volume of stool noted in the colon. Cecum and appendix lie in the central pelvis. No free fluid or free air is seen. ABDOMINAL WALL: Redemonstrated fluid collection along the midline abdominal wall measuring up to approximately 5.5 cm in the axial plane, similar to prior. LYMPH NODES: Normal. VASCULAR: There is atherosclerotic calcification along the aorta. PELVIC VISCERA: Redemonstrated right adnexal cyst measuring up to 2.7 cm, versus 2.1 cm previously. OSSEOUS STRUCTURES: There is facet arthropathy of the lumbar lumbar spine. CT/CT abdomen pelvis w con IMPRESSION: 1. No new acute findings identified in the abdomen/pelvis. 2. Right adnexal cyst measures 2.1 cm, slightly increased in size from prior. If not already performed, correlation with pelvic ultrasound is advised. 3. Stable appearance of fluid collection along the anterior abdominal wall. 4. Redemonstrated intrahepatic and intrahepatic biliary ductal dilatation. Status post cholecystectomy. 5. Redemonstrated left adrenal nodule.
[2020-10-13 18:15] VITALS: BP 150/78; PULSE 58; RESP 18; TEMP 36.1; O2SAT 96; BMI 29.5
[2020-10-13 19:50] LABS: Basophils Percent Auto 0.1 % (0-2); Eosinophils Absolute Auto 0.1 X10*3/uL (0.0-0.4); Eosinophils Percent Auto 1.4 % (0-4); Hematocrit 38.5 % (37-47); Hemoglobin 12.8 g/dl (12.0-16.0); Imm Gran Abs Auto 0.02 X10*3/uL (0.00-0.03); Imm Gran Pct Auto 0.3 % (0.0-0.4); Lymphocytes Absolute Auto 1.4 X10*3/uL (1.2-4.9); Lymphocytes Percent Auto 19.3 % (20-40); MANUAL DIFF FLAG NO; Mean Corpuscular HGB Conc 33.2 g/dl (31.0-35.0); Mean Corpuscular Hemoglobin 30.8 pg (27.0-33.0); Mean Corpuscular Volume 92.5 fL (80-98); Mean Platelet Volume 10.4 fL (9.4-12.3); Monocytes Absolute Auto 0.6 X10*3/uL (0.1-1.2); Monocytes Percent Auto 8.6 % (2-11); Neutrophils Absolute Auto 5.2 X10*3/uL (2.0-8.3); Neutrophils Percent Auto 70.3 % (45-73); Platelet Count 190 X10*3/uL (160-400); Red Blood Count 4.16 X10*6/uL (4.20-5.50); Red Cell Distribution Width 13.7 % (11.0-16.0); White Blood Count 7.4 X10*3/uL (4.8-10.8)
[2020-10-13 20:25] LABS: Alanine Aminotransferase 38 U/L (0-31); Albumin Level 4.5 g/dL (3.5-5.0); Alkaline Phosphatase 135 U/L (39-117); Anion Gap 12 (12-20); Aspartate Amino Transferase 19 U/L (5-31); Bilirubin Total 0.6 mg/dL (0.0-1.0); Blood Urea Nitrogen 23 mg/dL (9-16); Calcium 9.3 mg/dL (8.4-10.2); Carbon Dioxide 26 mmol/L (22-29); Chloride 107 mmol/L (96-108); Creatinine Clr Calc Pharmacy 61.9; Estimated Glomerular Filt Rate > 60; Glucose Random 91 mg/dL (60-115); Potassium 4.4 mmol/L (3.3-5.1); Sodium 141 mmol/L (135-145); Total Protein 6.8 g/dL (6.5-8.0)
[2020-10-14] MEDS: ondansetron HCL 4 MG/2 ML VIAL IVPUSH ×2 (00:09→05:11)
[2020-10-14] MEDS: HYDROmorphone HCl 1 MG/ML SYRINGE IVPUSH ×2 (00:10→01:43)
[2020-10-14 01:03] VITALS: BP 176/75; PULSE 50; RESP 18; O2SAT 98
[2020-10-14] MEDS: iohexoL 350 MG/ML 100 ML INFUS..BTL 85 ML IV (01:25)
[2020-10-14 01:41] VITALS: BP 144/50; PULSE 57; RESP 16; O2SAT 95
[2020-10-14 02:18] LABS: Glucose Urine UA NEG (NEG); Leukocyte Esterase Urine NEG (NEG); Nitrite Urine NEG (NEG); PH 5.5 (5.0-8.0); Urine Blood NEG (NEG); Urine Ketones 15 MG/DL (NEG); Urine Protein NEG (NEG-TRACE)
[2020-10-14 02:22] LABS: Appearance Urine CLEAR; Color Urine YELLOW; UACC Culture Trigger NO
--- NOTE | 2020-10-14 02:30 | ED.ABDPAIN ---
HPI - Abdominal Pain General Chief Complaint: Abdominal Pain Stated Complaint: abdominal pain Time Seen by Provider: 10/13/20 21:47 Source: patient Mode of arrival: ambulatory Limitations: no limitations History of Present Illness HPI narrative: Patient comes emergency room complaining of abdominal pain. Patient states is in her abdominal wall right in the middle. Patient states she has had issues with this before, however over the last 3 days it has gradually become more tender., no vomiting or diarrhea. No fever. Patient states the pain is 7/10, nonradiating Related Data Home Medications Medication Instructions Recorded Confirmed cholecalciferol (vitamin D3) 50 50 mcg PO DAILY 02/28/20 10/13/20 mcg (2,000 unit) tablet calcium carbonate 600 mg calcium 600 mg PO DAILY 10/05/20 10/13/20 (1,500 mg) tablet multivitamin 1 tab PO DAILY 10/05/20 10/13/20 Previous Rx's Medication Instructions Recorded cetirizine 10 mg capsule 10 mg PO DAILY PRN #90 cap 04/13/20 meloxicam 15 mg tablet 15 mg PO DAILY #30 tab 05/15/20 atorvastatin 20 mg tablet 20 mg PO DAILY #90 tab 05/16/20 oxyquinoline 0.025 %-sodium lauryl 0.5 ea VAGINAL .three times weekly 05/23/20 sulfate 0.01 % vaginal gel #113.4 g tizanidine 4 mg tablet 4 mg PO Q8H PRN #270 tab 06/09/20 pregabalin 50 mg capsule 50 mg PO BID 90 Days #180 cap 06/14/20 diclofenac sodium 1 % topical gel 2 g TOPICAL QID #1500 g 06/16/20 estradiol See Rx Instructions .ROUTE 3XW 07/06/20 #42.5 g ciprofloxacin HCl 500 mg tablet 500 mg PO BID #14 tab 10/13/20 Allergies Allergy/AdvReac Type Severity Reaction Status Date / Time hydrochlorothiazide Allergy Severe ANGIOEDEMA Verified 10/13/20 13:01 [HYDROCHLOROTHIAZIDE] lisinopril [LISINOPRIL] Allergy Severe ANGIOEDEMA Verified 10/13/20 13:01 Sulfa (Sulfonamide Allergy Severe FACIAL Verified 10/13/20 13:01 Antibiotics) SWELLING [SULFA (SULFONAMIDE ANTIBIOTICS)] iron [IRON] Allergy Intermediate NAUSEA Verified 10/13/20 13:01 lactose [LACTOSE] Allergy Intermediate DIARRHEA Verified 10/13/20 13:01 sertraline [From ZOLOFT] Allergy Intermediate INSOMNIA Verified 10/13/20 13:01 codeine Allergy Unknown Unknown Verified 10/13/20 13:01 lobster Allergy Anaphylaxis Uncoded 10/13/20 13:01 Review of Systems Review of Systems Constitutional : No Weight loss, No Fever, No Chills, No Night Sweats, No Fatigue, No Malaise ENT/Mouth : No Hearing loss, No Ear Pain, No Nasal Congestion, No Sinus Pain, No Hoarseness, No sore throat, No Rhinorrhea, No Swallowing Difficulty Eyes: No Eye Pain, No Swelling, No Redness, No Foreign Body, No Discharge, No Vision Changes Cardiovascular : No Chest Pain, No SOB, No Dyspnea on Exertion, No Orthopnea, No Edema, No Palpitations Respiratory : No Cough, No Sputum, No Wheezing, No Smoke Exposure, No Dyspnea Gastrointestinal : Complaining of Nausea, No Vomiting, No Diarrhea, No Constipation, complaining of mid abdominal pain for 3 days, No Hematochezia, No Melena Genitourinary : no irregular bleeding, No Dysuria, No Urinary Frequency, No Hematuria, No Urinary Incontinence, No Urgency, No Flank Pain, No Urinary Flow Changes, No Hesitancy Musculoskeletal : No joint pain, No Myalgias, No Joint Swelling Skin : No Skin Lesions, No rash Neuro : No Weakness, No Numbness, No Paresthesias, No Loss of Consciousness, No Dizziness, No Headache Psych : No Anxiety/Panic, No Depression, No SI/HI/AH/VH, No Social Issues, Heme/Lymph: No Bruising, No Bleeding,No Lymphadenopathy Endocrine : No Polyuria, No Polydipsia, No Temperature Intolerance Physical Exam Vital Signs: Vital Signs: Last Vital Signs Temp 97.0 F 10/13/20 18:15 Pulse 66 10/14/20 03:12 Resp 16 10/14/20 03:12 BP 181/75 H 10/14/20 03:12 Pulse Ox 95 10/14/20 03:12 Body Mass Index 29.5 Appearance: Alert. Oriented X3. Seems uncomfortable Eyes: Pupils equal, round and reactive to light. ENT: Pharynx normal. Neck: Normal inspection. Neck supple. No lymph nodes noted. No crepitus CVS: Normal heart rate and rhythm. Pulses normal. Normal S1 and S2 Respiratory: No respiratory distress. Breath sounds normal. No Wheezing. No rales Abdomen: Soft , tender to palpation over the mid abdominal area above the umbilicus. No rigidity. No distention. Skin: Skin warm and dry. Normal skin color. Normal skin turgor. Extremities: No lower extremity edema. No lower extremity edema. No Lacerations. No Rash Neuro: Oriented X 3. No motor deficit. No sensory deficit. Moving all extermities. No slurred speech. Course Course Course Narrative: I discussed the CT scan with the patient, patient does have a redemonstration a fluid collection in the abdominal wall. Patient does not feel comfortable going home, states that she still has significant pain in pain. He is afraid of being p.o. challenged. I discussed the patient with the [facility] surgery nurse practitioner Dorothy Beatty. Patient will be admitted for observation discussed the plan with the patient and she is agreeable. MDM - Abdominal Pain Lab Data Result diagrams: 10/13/20 19:42 10/13/20 19:42 Labs: Lab Results 10/13/20 10/13/20 10/13/20 Range/Units 19:42 19:42 19:42 WBC 7.4 (4.8-10.8) X10*3/uL RBC 4.16 L (4.20-5.50) X10*6/uL Hgb 12.8 (12.0-16.0) g/dl Hct 38.5 (37-47) % MCV 92.5 (80-98) fL MCH 30.8 (27.0-33.0) pg MCHC 33.2 (31.0-35.0) g/dl RDW 13.7 (11.0-16.0) % Plt Count 190 (160-400) X10*3/uL MPV 10.4 (9.4-12.3) fL Immature Gran % (Auto) 0.3 (0.0-0.4) % Neut % (Auto) 70.3 (45-73) % Lymph % (Auto) 19.3 L (20-40) % Davidson % (Auto) 8.6 (2-11) % Eos % (Auto) 1.4 (0-4) % Baso % (Auto) 0.1 (0-2) % Lymph # (Auto) 1.4 (1.2-4.9) X10*3/uL Davidson # (Auto) 0.6 (0.1-1.2) X10*3/uL Eos # (Auto) 0.1 (0.0-0.4) X10*3/uL Baso # (Auto) 0.0 (0.0-0.2) X10*3/uL Abs Immat Gran (auto) 0.02 (0.00-0.03) X10*3/uL Absolute Neuts (auto) 5.2 (2.0-8.3) X10*3/uL Absolute Nucleated RBC 0.000 (0.0-0.012) X10*3/uL Nucleated RBC % (auto) 0.0 (0.0-0.2) /100WBC Hold Blue Top SEE NOTE Sodium 141 (135-145) mmol/L Potassium 4.4 (3.3-5.1) mmol/L Chloride 107 (96-108) mmol/L Carbon Dioxide 26 (22-29) mmol/L Anion Gap 12 (12-20) BUN 23 H (9-16) mg/dL Creatinine 0.72 (0.5-1.4) mg/dL Estim Creat Clear Calc 61.9 Estimated GFR > 60 Random Glucose 91 (60-115) mg/dL Calcium 9.3 (8.4-10.2) mg/dL Total Bilirubin 0.6 (0.0-1.0) mg/dL AST 19 (5-31) U/L ALT 38 H (0-31) U/L Alkaline Phosphatase 135 H (39-117) U/L Total Protein 6.8 (6.5-8.0) g/dL Albumin 4.5 (3.5-5.0) g/dL Urine Color Urine Appearance Urine pH (5.0-8.0) Ur Specific [place] (1.005-1.025) Urine Protein (NEG-TRACE) MG/DL Urine Glucose (UA) (NEG) MG/DL Urine Ketones (NEG) MG/DL Urine Blood (NEG) Urine Nitrite (NEG) Ur Leukocyte Esterase (NEG) 10/14/20 Range/Units 01:58 WBC (4.8-10.8) X10*3/uL RBC (4.20-5.50) X10*6/uL Hgb (12.0-16.0) g/dl Hct (37-47) % MCV (80-98) fL MCH (27.0-33.0) pg MCHC (31.0-35.0) g/dl RDW (11.0-16.0) % Plt Count (160-400) X10*3/uL MPV (9.4-12.3) fL Immature Gran % (Auto) (0.0-0.4) % Neut % (Auto) (45-73) % Lymph % (Auto) (20-40) % Davidson % (Auto) (2-11) % Eos % (Auto) (0-4) % Baso % (Auto) (0-2) % Lymph # (Auto) (1.2-4.9) X10*3/uL Davidson # (Auto) (0.1-1.2) X10*3/uL Eos # (Auto) (0.0-0.4) X10*3/uL Baso # (Auto) (0.0-0.2) X10*3/uL Abs Immat Gran (auto) (0.00-0.03) X10*3/uL Absolute Neuts (auto) (2.0-8.3) X10*3/uL Absolute Nucleated RBC (0.0-0.012) X10*3/uL Nucleated RBC % (auto) (0.0-0.2) /100WBC Hold Blue Top Sodium (135-145) mmol/L Potassium (3.3-5.1) mmol/L Chloride (96-108) mmol/L Carbon Dioxide (22-29) mmol/L Anion Gap (12-20) BUN (9-16) mg/dL Creatinine (0.5-1.4) mg/dL Estim Creat Clear Calc Estimated GFR Random Glucose (60-115) mg/dL Calcium (8.4-10.2) mg/dL Total Bilirubin (0.0-1.0) mg/dL AST (5-31) U/L ALT (0-31) U/L Alkaline Phosphatase (39-117) U/L Total Protein (6.5-8.0) g/dL Albumin (3.5-5.0) g/dL Urine Color YELLOW Urine Appearance CLEAR Urine pH 5.5 (5.0-8.0) Ur Specific [place] 1.010 (1.005-1.025) Urine Protein NEG (NEG-TRACE) MG/DL Urine Glucose (UA) NEG (NEG) MG/DL Urine Ketones 15 (NEG) MG/DL Urine Blood NEG (NEG) Urine Nitrite NEG (NEG) Ur Leukocyte Esterase NEG (NEG) Imaging Data CT scan - abdomen: Radiologist's impression: FINDINGS: LUNG BASES: The visualized lung bases demonstrate minimal dependent atelectasis. LIVER, GALLBLADDER, AND BILIARY TREE: The liver is normal in size, shape, and attenuation. There is moderate intrahepatic and extra hepatic biliary ductal dilatation, similar to 09/28/2019. Status post cholecystectomy. PANCREAS: There is partial fatty atrophy of the pancreas. SPLEEN: Unremarkable. ADRENAL GLANDS: Redemonstrated left adrenal nodule measuring 2.0 cm in diameter. KIDNEYS AND URETERS: The kidneys are normal in size, shape, and attenuation. No hydronephrosis, hydroureter, or obstructing calculi seen. No perinephric stranding. BLADDER: Unremarkable. GASTROINTESTINAL TRACT: Postsurgical changes noted in the stomach and proximal small bowel in keeping with history of gastric bypass surgery. No evidence of bowel obstruction. No significant bowel wall thickening is seen. Moderate volume of stool noted in the colon. Cecum and appendix lie in the central pelvis. No free fluid or free air is seen. ABDOMINAL WALL: Redemonstrated fluid collection along the midline abdominal wall measuring up to approximately 5.5 cm in the axial plane, similar to prior. LYMPH NODES: Normal. VASCULAR: There is atherosclerotic calcification along the aorta. PELVIC VISCERA: Redemonstrated right adnexal cyst measuring up to 2.7 cm, versus 2.1 cm previously. OSSEOUS STRUCTURES: There is facet arthropathy of the lumbar lumbar spine. CT/CT abdomen pelvis w con IMPRESSION: 1. No new acute findings identified in the abdomen/pelvis. 2. Right adnexal cyst measures 2.1 cm, slightly increased in size from prior. If not already performed, correlation with pelvic ultrasound is advised. 3. Stable appearance of fluid collection along the anterior abdominal wall. 4. Redemonstrated intrahepatic and intrahepatic biliary ductal dilatation. Status post cholecystectomy. 5. Redemonstrated left adrenal nodule. Discharge Plan Discharge Clinical Impression: Abdominal pain Patient Disposition: Admitted As Inpatient Prescriptions: No Action Zyrtec 10 mg capsule 10 mg PO DAILY PRN (Reason: allergy symptoms) Qty: 90 RF: 2 meloxicam 15 mg tablet 15 mg PO DAILY Qty: 30 RF: 4 atorvastatin 20 mg tablet 20 mg PO DAILY Qty: 90 RF: 2 tizanidine 4 mg tablet 4 mg PO Q8H PRN (Reason: for muscle spasm) Qty: 270 RF: 0 pregabalin [Lyrica] 50 mg capsule 50 mg PO BID 90 Days Qty: 180 RF: 1 diclofenac sodium [Voltaren] 1 % gel 2 g topical QID Qty: 1500 RF: 5 cholecalciferol (vitamin D3) 50 mcg (2,000 unit) tablet 50 mcg PO DAILY RF: 0 ciprofloxacin HCl 500 mg tablet 500 mg PO BID Qty: 14 RF: 0 estradiol 0.01 % (0.1 mg/gram) cream See Rx Instructions .Route 3XW Qty: 42.5 RF: 2 Trimo-Lackey Jelly 0.025-0.01 % gel 0.5 ea vaginal .three times weekly Qty: 113.4 RF: 0 multivitamin Tablet 1 tab PO DAILY RF: 0 calcium carbonate [Calcium 600] 600 mg calcium (1,500 mg) tablet 600 mg PO DAILY RF: 0 PMFSH Past Medical History Medical History Anemia Asthma COPD (chronic obstructive pulmonary disease) DDD (degenerative disc disease), cervical Degenerative disc disease, cervical Degenerative disc disease, cervical Deviated septum Esophageal stricture GERD (gastroesophageal reflux disease) Hemorrhoids History of duodenal ulcer History of esophageal dilatation Hypercholesterolemia Hypertension Impaired glucose tolerance Obstructive sleep apnea Osteoarthritis of knees, bilateral Osteopenia Peptic ulcer disease Peripheral neuropathy Peripheral vascular disease RSD (reflex sympathetic dystrophy) Small bowel obstruction Spondylosis of cervical spine Tubular adenoma of colon Vitamin D deficiency Surgical History Cystocele History of arthroscopy of left knee History of cholecystectomy History of hemorrhoidectomy History of nasal surgery History of repair of hiatal hernia History of tonsillectomy History of tubal ligation History of umbilical hernia repair Hx of gastric bypass Family History Family History Father No problems noted. Mother No problems noted. Social History Social History Alcohol intake: never Smoking Status: Never smoker Advance Directives: No Advance Directives Information Provided: Yes Current occupational status: retired Current occupation: right handed Gender identity: female
[2020-10-14 03:12] VITALS: BP 181/75; PULSE 66; RESP 16; O2SAT 95
[2020-10-14] MEDS: Lactated Ringers 1,000 ML 125 ML IVCONT (05:12)
[2020-10-14 05:45] LABS: COVID-19 Test Negative (Negative)
[2020-10-14] MEDS: HYDROmorphone HCl 0.5 MG/0.5 ML SYRINGE 0.25 MG IVPUSH (06:42)
--- NOTE | 2020-10-14 06:53 | PC.NURSE ---
PT'S ADMISSION ORDERS ARE THROUGH BARIATRIC MANAGER UTILIZATION. PLEASE CONTACT FOR ANY QUESTIONS OR ORDERS. PT IS NPO DIET. PLEASE ASK MANAGER UTILIZATION TO CONTINUE HER HOME MEDS.
--- NOTE | 2020-10-14 07:19 | PC.NURSE ---
report taken form demario ballard. patient resting on stretcher upon assessment. comfortable at this time. IV fluids running. patient waiting bed assignment for admission.
--- NOTE | 2020-10-14 08:32 | PC.NURSE ---
Addendum entered by Ninoska Sheets 10/14/20 08:38: SPOKE WITH [facility] PRIETO NP. AWARE PT REFUSING FLUIDS. SHE IS COMING TO SEE PATIENT IN ED SOON. PATIENT HAS NOT HAD ANY VOMITING, CLEAR LIQUIDS TO BE ORDERED FOR PATIENT. VITALS BEING UPDATED AT THIS TIME. Original Note: PATIENT RANG RAMÍREZ FOR RN, WHEN RN INTO ROOM PATIENT STATED TO RN WHEN I HAVE TO GO TO THE BATHROOM, I HAVE TO GO TO THE BATHROOM . ANGRY SHE HAD TO BE DISCONNECTED FROM IV FLUIDS, STATES SHE DOES NOT WANT TO WANT HOOKED BACK UP TO FLUIDS. AMBULATED TO BATHROOM WITH STEADY GAIT USING WALKER.
[2020-10-14 08:39] VITALS: BP 138/82; PULSE 61; O2SAT 98
--- NOTE | 2020-10-14 09:16 | P.HPGS_ITS ---
History of Present Illness History of Present Illness Date of Service: 10/14/20 Chief complaint: abdominal pain Narrative: María Sawyer is a 70 year old female who presented to the ED last night with 7/10 non-radiating abdominal pain. Denies fevers/vomiting/nausea. She is s/p LRYGB with Dr. Nuno 2019. Has reported intermittent abominal pain in the past, recently we ordered an UGI with small bowel follow through, which was normal and showed no signs of obstruction. CT with IV contrast showed no signs of bowel obstruction, and small abdominal fluid collection unchanged from past imaging. Labs unremarkable and VSS. Patient was given results of CT scan but did not want to go home. I spoke with Dr. Liao overnight and admitted for observation. Patient this morning refusing IVF. Patient reports she went to PCP yesterday for worsening abdominal pain, he checked labs, WBC 9. Gave antibiotics to empirically treat possible colitis, patient didn't start them. Came to ED at 3pm Sat for worsening abdominal pain. No fevers/chills/diarrhea/vomiting. Had 1 soft BM since being in ED. Says she sees Dr. Sanchez for gastroenterology, last appt was 2 years ago for EGD and cscope. Review of Systems Constitutional: Constitutional: Reports as per HPI, Denies chills and Denies fever(s) Gastrointestinal: Gastrointestinal: Reports as per HPI, Reports abdominal pain, Denies constipation, Denies diarrhea and Denies vomiting PMFSH Past Medical History Medical History Anemia Asthma COPD (chronic obstructive pulmonary disease) DDD (degenerative disc disease), cervical Degenerative disc disease, cervical Degenerative disc disease, cervical Deviated septum Esophageal stricture GERD (gastroesophageal reflux disease) Hemorrhoids History of duodenal ulcer History of esophageal dilatation Hypercholesterolemia Hypertension Impaired glucose tolerance Obstructive sleep apnea Osteoarthritis of knees, bilateral Osteopenia Peptic ulcer disease Peripheral neuropathy Peripheral vascular disease RSD (reflex sympathetic dystrophy) Small bowel obstruction Spondylosis of cervical spine Tubular adenoma of colon Vitamin D deficiency Family History Family History Father No problems noted. Mother No problems noted. Surgical History Surgical History Cystocele History of arthroscopy of left knee History of cholecystectomy History of hemorrhoidectomy History of nasal surgery History of repair of hiatal hernia History of tonsillectomy History of tubal ligation History of umbilical hernia repair Hx of gastric bypass Social History Social History Alcohol intake: never Smoking Status: Never smoker Advance Directives: No Advance Directives Information Provided: Yes Current occupational status: retired Current occupation: right handed Gender identity: female Meds Allergies Allergy/AdvReac Type Severity Reaction Status Date / Time hydrochlorothiazide Allergy Severe ANGIOEDEMA Verified 10/13/20 13:01 [HYDROCHLOROTHIAZIDE] lisinopril [LISINOPRIL] Allergy Severe ANGIOEDEMA Verified 10/13/20 13:01 Sulfa (Sulfonamide Allergy Severe FACIAL Verified 10/13/20 13:01 Antibiotics) SWELLING [SULFA (SULFONAMIDE ANTIBIOTICS)] iron [IRON] Allergy Intermediate NAUSEA Verified 10/13/20 13:01 lactose [LACTOSE] Allergy Intermediate DIARRHEA Verified 10/13/20 13:01 sertraline [From ZOLOFT] Allergy Intermediate INSOMNIA Verified 10/13/20 13:01 codeine Allergy Unknown Unknown Verified 10/13/20 13:01 lobster Allergy Anaphylaxis Uncoded 10/13/20 13:01 Active Medications: Current Medications Generic Name Dose Route Start Last Admin Trade Name Freq PRN Reason Stop Dose Admin Hydromorphone HCl 0.25 mg 10/14/20 05:00 10/14/20 06:42 Hydromorphone Hcl 0.5 Mg/0.5 Ml Syringe IVPUSH 0.25 mg ONCE PRN Administration Pain, Severe (Pain Scale 7-10) Lactated Ringer's 1,000 mls @ 125 mls/hr 10/14/20 03:30 10/14/20 05:12 Lr IVCONT 125 mls/hr .Q8H JOSÉ Administration Polyethylene Glycol 17 gm 10/14/20 09:12 Polyethylene Glycol 3350 17 Gm Powd.Pack PO 10/14/20 09:13 ONCE ONE Home Medications Medication Instructions Recorded Confirmed Last Taken Type Myrbetriq 1 tab PO DAILY 10/14/20 10/14/20 Unknown History diclofenac sodium [Voltaren] TOPICAL PRN 10/14/20 Unknown History pregabalin [Lyrica] 50 mg PO BID 10/14/20 10/14/20 Unknown History Physical Exam Vital Signs: Vital Signs: Last Vital Signs Temp 97.0 F 10/13/20 18:15 Pulse 61 10/14/20 08:39 Resp 16 10/14/20 03:12 BP 138/82 10/14/20 08:39 Pulse Ox 98 10/14/20 08:39 Body Mass Index 29.5 Const: General: cooperative, comfortable, no acute distress, alert and awake Nutritional Appearance: obese Orientation/consciousness: oriented to person, oriented to place and oriented to time Neck: Neck: Yes normal visual inspection, Yes no lymphadenopathy and No submandibular swelling Resp: Effort & Inspection: normal respiratory effort and symmetric chest movement Auscultation: clear to auscultation bilaterally Cardio: Rate: regular rate Rhythm: regular rhythm GI: Other: slight diffuse firmness above umbilicus minimally tender to touch Inspection: Yes normal to inspection and Yes obesity Palpation (GI): Soft to palpation, nontender, no guarding, not rigid and No Rebound tenderness present Auscultation: normal bowel sounds Neuro: General: oriented to person, oriented to place and oriented to time Extrem: Right lower extremity: no edema Left lower extremity: no edema Psych: Appearance: grossly normal Mental Status: mental status grossly normal Speech and movement: Normal speech and movement present Affect: normal affect Attitude: cooperative Thought process: Normal thought process present Thought content: Normal thought content present Insight: Good insight present (Psych) Judgement: Good judgement present (Psych) Results Results Labs: Short CBC 10/13/20 Range/Units 19:42 WBC 7.4 (4.8-10.8) X10*3/uL Hgb 12.8 (12.0-16.0) g/dl Hct 38.5 (37-47) % Plt Count 190 (160-400) X10*3/uL BMP 10/13/20 19:42 Sodium 141 Potassium 4.4 Chloride 107 Carbon Dioxide 26 BUN 23 H Creatinine 0.72 Calcium 9.3 Liver Function 10/13/20 Range/Units 19:42 Total Bilirubin 0.6 (0.0-1.0) mg/dL AST 19 (5-31) U/L ALT 38 H (0-31) U/L Alkaline Phosphatase 135 H (39-117) U/L Albumin 4.5 (3.5-5.0) g/dL Urine 05/22/21 Range/Units 01:58 Urine Color YELLOW Urine Appearance CLEAR Urine pH 5.5 (5.0-8.0) Ur Specific [place] 1.010 (1.005-1.025) Urine Protein NEG (NEG-TRACE) MG/DL Urine Glucose (UA) NEG (NEG) MG/DL Assessment and Plan (1) Hx of gastric bypass: Status: Acute (2) Abdominal pain: Qualifiers: Abdominal location: unspecified location Qualified Code(s): R10.9 - Unspecified abdominal pain Status: Acute (3) Intestinal malabsorption following gastrectomy: Status: Acute (4) Obesity (BMI 30-39.9): Status: Acute 18 mo s/p LRYGB, presented to ED with abdominal pain. Labs unremarkable, VSS, and CT showed no signs of incarcerated hernia or SBO. Small abdominal fluid collection seen on prior CT as well. Likely IBS. Discharged home with dicyclomine, ondansetron, and can resume normal diet but advised on just clear fluids today. Do not take antibiotic sent to pharmacy, may increase risk of C.diff. Will talk with patient Friday to help arrange GI follow up. Plan discussed with attending Dr. Nuno. Procedures Date of Service Date of Service: 10/14/20
--- NOTE | 2020-10-14 09:22 | PC.NURSE ---
MIRALAX ORDER FOR PATIENT, PATIENT STATES SHE HAS BEEN HAVING DIARRHEA AND USUALLY HAS DIARRHEA ALL THE TIME . DOES NOT NEED MIRALX. SEARCH SPECIALIST JOVANNY GAY. SHE IS ON HER WAY TO SEE PATIENT.
[2020-10-14] MEDS: Dicyclomine HCl 10 MG CAPSULE PO (10:32)
--- NOTE | 2020-10-14 14:27 | PM.DS ---
DS: Providers Provider Date of Service: 10/14/20 Date of admission: 10/14/20 03:30 Primary care physician: Dwight Nicole MD DS: Diagnosis Discharge Diagnosis (1) Hx of gastric bypass: Status: Acute Problem details: January 2019 (2) Abdominal pain: Status: Acute (3) Intestinal malabsorption following gastrectomy: Status: Acute (4) Obesity (BMI 30-39.9): Status: Acute DS: Medications Discharge Medications Home Medications: Home Medications Medication Instructions Recorded Confirmed Myrbetriq 1 tab PO DAILY 10/14/20 10/14/20 diclofenac sodium [Voltaren] TOPICAL PRN 10/14/20 pregabalin [Lyrica] 50 mg PO BID 10/14/20 10/14/20 Previous Rx's Medication Instructions Recorded cetirizine 10 mg capsule 10 mg PO DAILY PRN #90 cap 04/13/20 meloxicam 15 mg tablet 15 mg PO DAILY #30 tab 05/15/20 atorvastatin 20 mg tablet 20 mg PO DAILY #90 tab 05/16/20 tizanidine 4 mg tablet 4 mg PO Q8H PRN #270 tab 06/09/20 dicyclomine 10 mg PO TID #20 cap 10/14/20 ondansetron 4 mg PO Q8H PRN #20 tab 10/14/20 DS: Summary Time Spent with Patient Time attestation: Total time spent providing and/or coordinating discharge services: Discharge coordination time: Greater than 30 minutes Quality: Stroke Does the patient have a stroke diagnosis?: No Physical Exam Vital Signs: Vital Signs: Last Vital Signs Temp 97.0 F 10/13/20 18:15 Pulse 61 10/14/20 08:39 Resp 16 10/14/20 03:12 BP 138/82 10/14/20 08:39 Pulse Ox 98 10/14/20 08:39 Body Mass Index 29.5 DS: Data Data Completed and Pending Labs on day of discharge: Laboratory Results - last 24 hr 10/13/20 10/13/20 10/13/20 19:42 19:42 19:42 WBC 7.4 RBC 4.16 L Hgb 12.8 Hct 38.5 MCV 92.5 MCH 30.8 MCHC 33.2 RDW 13.7 Plt Count 190 MPV 10.4 Immature Gran % (Auto) 0.3 Neut % (Auto) 70.3 Lymph % (Auto) 19.3 L [place] % (Auto) 8.6 Eos % (Auto) 1.4 Baso % (Auto) 0.1 Lymph # (Auto) 1.4 [place] # (Auto) 0.6 Eos # (Auto) 0.1 Baso # (Auto) 0.0 Abs Immat Gran (auto) 0.02 Absolute Neuts (auto) 5.2 Absolute Nucleated RBC 0.000 Nucleated RBC % (auto) 0.0 Hold Blue Top SEE NOTE Sodium 141 Potassium 4.4 Chloride 107 Carbon Dioxide 26 Anion Gap 12 BUN 23 H Creatinine 0.72 Estim Creat Clear Calc 61.9 Estimated GFR > 60 Random Glucose 91 Calcium 9.3 Total Bilirubin 0.6 AST 19 ALT 38 H Alkaline Phosphatase 135 H Total Protein 6.8 Albumin 4.5 Urine Color Urine Appearance Urine pH Ur Specific [place] Urine Protein Urine Glucose (UA) Urine Ketones Urine Blood Urine Nitrite Ur Leukocyte Esterase COVID-19 (VAL) COVID-19 [place] 10/14/20 10/14/20 01:58 05:22 WBC RBC Hgb Hct MCV MCH MCHC RDW Plt Count MPV Immature Gran % (Auto) Neut % (Auto) Lymph % (Auto) [place] % (Auto) Eos % (Auto) Baso % (Auto) Lymph # (Auto) [place] # (Auto) Eos # (Auto) Baso # (Auto) Abs Immat Gran (auto) Absolute Neuts (auto) Absolute Nucleated RBC Nucleated RBC % (auto) Hold Blue Top Sodium Potassium Chloride Carbon Dioxide Anion Gap BUN Creatinine Estim Creat Clear Calc Estimated GFR Random Glucose Calcium Total Bilirubin AST ALT Alkaline Phosphatase Total Protein Albumin Urine Color YELLOW Urine Appearance CLEAR Urine pH 5.5 Ur Specific [place] 1.010 Urine Protein NEG Urine Glucose (UA) NEG Urine Ketones 15 Urine Blood NEG Urine Nitrite NEG Ur Leukocyte Esterase NEG COVID-19 (VAL) Negative COVID-19 Clin Com See Note Discharge Plan Discharge Patient Disposition: Home, Self-Care Discharge Diagnosis: IBS Referrals: Corey,Dwight Garcia MD [Primary Care Provider] - 1 Week Discharge Medications: New dicyclomine 10 mg capsule 10 mg PO TID Qty: 20 RF: 0 ondansetron 4 mg tablet,disintegrating 4 mg PO Q8H PRN (Reason: nausea and vomiting) Qty: 20 RF: 0 Continued Zyrtec 10 mg capsule 10 mg PO DAILY PRN (Reason: allergy symptoms) Qty: 90 RF: 2 meloxicam 15 mg tablet 15 mg PO DAILY Qty: 30 RF: 4 atorvastatin 20 mg tablet 20 mg PO DAILY Qty: 90 RF: 2 tizanidine 4 mg tablet 4 mg PO Q8H PRN (Reason: for muscle spasm) Qty: 270 RF: 0 pregabalin [Lyrica] 50 mg Capsule 50 mg PO BID RF: 0 diclofenac sodium [Voltaren] 1 % Gel topical PRN (Reason: Pain) RF: 0 Myrbetriq 50 mg tablet extended release 24 hr 1 tab PO DAILY RF: 0 Discharge Orders: Discharge Order (Routine); Ordered 10/14/20 Ordered By: Dorothy Beatty Diet: advance to usual diet Activity on Discharge: As tolerated Stand Alone Forms: Patient Portal Discharge page Activity Restrictions/Additional Instructions: 1. Stay hydrated today 2. Do not take antibiotics 3. Sent ondansetron and dicyclomine to pharmacy 4. follow up with GI Dr. Sanchez for IBS flare Care Plan Goals: abdominal pain improvement Health Concerns: obesity, abdominal pain Plan of Treatment: dicyclomine for likely IBS Assessment: stable, VSS, labs unremarkable, discharged after <24 hour obs status
== END 2020-10-14 11:18 | disposition home or self-care (01) | DRG 392 ==
LOC: HO.ED 10-14 04:00 → HO.EDOVER 10-14 04:43
PROVIDERS: Admitting Provider Physician Assistant; Emergency Provider Emergency Medicine; PCP Internal Medicine; Visit Provider Physician Assistant
DX: R10.9 Unspecified abdominal pain (principal); K91.2 Postsurgical malabsorption, not elsewhere classified; E66.9 Obesity, unspecified; Z68.29 Body mass index [BMI] 29.0-29.9, adult; Z20.822 Contact with and (suspected) exposure to COVID-19; Z98.84 Bariatric surgery status; Z79.899 Other long term (current) drug therapy
CPT/HCPCS: 36415; 74177; 80053; 81003; 85025; 87635; 96374; 96375; 99219; 99284; 99285; J1170; J2405; Q9967

== ENCOUNTER 2020-10-27 08:06 | Outpatient (REF) | payer MEDICARE, SELFPAY ==
--- NOTE | ~2020-10-27 | MM_ITS ---
EXAMINATION: BONE DENSITOMETRY CLINICAL INDICATION: Other cervical degeneration. Screening for osteoporosis. COMPARISON: Previous BD dated 07/21/2018 and baseline BD dated 10/14/2008. TECHNIQUE: Using a [employer] DXA System (software version: 13.1) manufactured by [employer], dual-energy x-ray absorptiometry was performed of the lumbar spine and left hip. The images are of good technical quality. Summary results are attached. FINDINGS: AP SPINE L1-L4: Current: BMD 1.107 g/cm2, Z-score 1.0, T-score -0.6, normal, 8.2% decrease from previous, 2.6% decrease from baseline (<5% change is not significant). Prior: BMD 1.206 g/cm2. Baseline: BMD 1.136 g/cm2. LEFT FEMUR, NECK: Current: BMD 0.710 g/cm2, Z-score -0.7, T-score -2.4, osteopenia. Prior: BMD 0.810 g/cm2. Baseline: BMD 0.841 g/cm2. LEFT FEMUR, TOTAL: Current: BMD 0.840 g/cm2, Z-score 0.1, T-score -1.3, osteopenia, 17.0% decrease from previous, 21.4% decrease from baseline (<5% change is not significant). Prior: BMD 1.012 g/cm2. Baseline: BMD 1.069 g/cm2. IDENTIFIED RISK FACTORS: Height loss, history of fracture (adult), secondary osteoporosis, menopause. HISTORY OF FRACTURE: Wrist. Lower leg. MEDICATIONS: Calcium supplements or multivitamin, vitamin D. MM/XR DEXA axial skeleton IMPRESSION: 1. DIAGNOSIS: Osteopenia based on the lowest T-score value of -2.4 in the femoral neck applying World Health Organization criteria. 2. 10-YEAR FRACTURE RISK PREDICTION, FRAX: Major osteoporotic fracture (clinical spine, forearm, hip or shoulder) 14.1%. Hip fracture 3.5%. 3. Treatment Recommendations: NOF guidelines recommend consideration for treatment in postmenopausal women and men age 50 and older presenting with the following: -A hip or vertebral (clinical or morphometric) fracture. -T-score less than or equal to -2.5 at the femoral neck or spine after appropriate evaluation to exclude secondary causes. -Low bone mass at the hip or spine and a 10-year fracture probability by FRAX of greater than or equal to 3% for hip fracture or greater than or equal to 20% for major osteoporotic fracture based on the [place] adapted WHO algorithm. 4. Other Recommendations: All treatment decisions require clinical judgment and consideration of individual patient factors, including patient preferences, comorbidities, previous drug use, risk factors not captured in the FRAX model (e.g. frailty, falls, vitamin D deficiency, increased bone turnover, interval significant decline in bone density) and possible under or overestimation of fracture risk by FRAX. Additional medical evaluation for secondary cause of low bone mineral density may be appropriate. FUTURE SCAN RECOMMENDATION: People with diagnosed cases of osteoporosis or at high risk for fracture should have regular bone mineral density tests. For patients eligible for Medicare, routine testing is allowed once every 2 years. The testing frequency can be increased to one year for patients who have rapidly progressing disease, those who are receiving or discontinuing medical therapy to restore bone mass, or have additional risk factors.
== END 2020-10-27 08:07 | disposition home or self-care (01) ==
LOC: HO.MAMMO 08:06
PROVIDERS: Visit Provider Internal Medicine
DX: Z13.820 Encounter for screening for osteoporosis (principal); Z78.0 Asymptomatic menopausal state; M50.30 Other cervical disc degeneration, unspecified cervical region; Z79.899 Other long term (current) drug therapy
CPT/HCPCS: 77080

== ENCOUNTER → 2020-11-08 15:32 | Outpatient (BNVA) | payer MEDICARE, SELFPAY | PROVIDERS: PCP Internal Medicine; Visit Provider Anesthesiology | DX: M47.812 Spondylosis without myelopathy or radiculopathy, cervical region (principal); M50.30 Other cervical disc degeneration, unspecified cervical region | CPT/HCPCS: 99212 ==

== ENCOUNTER 2020-11-21 14:46 | Outpatient (REF) | payer MEDICARE, SELFPAY ==
--- NOTE | ~2020-11-21 | MR_ITS ---
MR CERVICAL SPINE WITHOUT CONTRAST CLINICAL INFORMATION: Cervical disc degeneration. COMPARISON: Cervical spine MRI 02/15/2020. TECHNIQUE: MRI of the cervical spine was obtained using routine sequences without contrast. FINDINGS: Straightening of the cervical lordosis. Vertebral body heights are maintained. There is moderate to severe disc volume loss at C3-C4 and C4-C5, there is severe disc volume loss at C5-C6, and there is moderate disc volume loss at C6-C7. Modic type I endplate signal changes at C5-C6. The craniocervical junction is unremarkable. Accounting for artifact there is no cord signal abnormality. The cervical arterial flow voids are maintained. There are no significant extraspinal soft tissue findings. The partially imaged intracranial compartment is unremarkable. C2-C3: Central disc protrusion ligamentum flavum thickening result in similar mild to moderate central canal stenosis and slight flattening of the cord. Bilateral facet arthropathy. No significant foraminal stenosis. Findings unchanged. C3-C4: Disc osteophyte and ligamentum flavum thickening result in stable appearing mild to moderate central canal stenosis and flattening of the cervical cord. Advanced uncovertebral joint hypertrophy and hypertrophic facet arthropathy result in stable moderate to severe left greater than right foraminal stenosis. C4-C5: Disc osteophyte mildly narrows the central canal. Uncovertebral joint hypertrophy and hypertrophic facet arthropathy result in mild bilateral foraminal encroachment, greater on the right side. Findings unchanged. C5-C6: Disc osteophyte and ligamentum flavum thickening mildly narrow the central canal, unchanged. Advanced uncovertebral joint hypertrophy and hypertrophic facet arthropathy result in stable severe right-sided foraminal stenosis. C6-C7: Disc osteophyte and ligamentum flavum thickening result in stable mild central canal stenosis. No foraminal stenosis. C7-T1: Disc contour is normal. No central canal stenosis and no foraminal stenosis. MR/MR cervical spine wo con IMPRESSION: Stable appearing spondylitic changes throughout the cervical spine as discussed in detail above. Spondylitic changes result in stable moderate to severe left greater than right C3-C4 and severe right C5-C6 foraminal stenosis. Varying degrees of mild to moderate central canal stenosis throughout the cervical spine unchanged.
== END 2020-11-21 14:47 | disposition home or self-care (01) ==
LOC: HO.MRI 14:46
PROVIDERS: PCP Internal Medicine; Visit Provider Anesthesiology
DX: M50.30 Other cervical disc degeneration, unspecified cervical region (principal); M47.812 Spondylosis without myelopathy or radiculopathy, cervical region
CPT/HCPCS: 72141

== ENCOUNTER → 2020-11-30 15:59 | Outpatient (BNVA) | payer MEDICARE, SELFPAY | PROVIDERS: PCP Internal Medicine; Visit Provider Anesthesiology | DX: M47.812 Spondylosis without myelopathy or radiculopathy, cervical region (principal); M50.30 Other cervical disc degeneration, unspecified cervical region | CPT/HCPCS: Q3014 ==

== ENCOUNTER 2021-01-10 13:26 | Outpatient (REF) | payer MEDICARE, SELFPAY ==
[2021-01-10 15:20] LABS: Gamma Glutamyl Transpeptidase 12 U/L (7-33)
[2021-01-10 15:37] LABS: SARS COV2 IgG Negative (Negative)
[2021-01-10 15:44] LABS: Erythrocyte Sedimentation Rate 20 MM/HR (0-20)
[2021-01-15 14:22] LABS: Alk.Phos Iso. Macrohepatic 0 % (<=0); Alk.Phos Isoenzymes Bone 40 % (28-66); Alk.Phos Isoenzymes Intest 3 % (1-24); Alk.Phos Isoenzymes Liver 57 % (25-69); Alk.Phos Isoenzymes Placental 0 % (<=0); Alk.Phos Isoenzymes Total 102 U/L (37-153)
[2021-01-17 01:30] LABS: 5' Nucleotidase 2 U/L (0-10)
== END 2021-01-10 13:27 | disposition home or self-care (01) ==
LOC: HO.LAB 13:26
PROVIDERS: PCP Internal Medicine; Visit Provider Internal Medicine
DX: R10.33 Periumbilical pain (principal); R32 Unspecified urinary incontinence
CPT/HCPCS: 36415; 82977; 83915; 84080; 85652; 86140; 86769

== ENCOUNTER → 2021-02-12 09:55 | Outpatient (BNVA) | payer MEDICARE, SELFPAY | PROVIDERS: PCP Internal Medicine; Referring Provider Internal Medicine; Visit Provider Surgery | DX: E66.3 Overweight (principal); M79.3 Panniculitis, unspecified; Z68.25 Body mass index [BMI] 25.0-25.9, adult | CPT/HCPCS: 99212 ==

== ENCOUNTER 2021-02-19 05:56 | Outpatient (REF) | payer MEDICARE, SELFPAY ==
[2021-02-19 06:59] LABS: MANUAL DIFF FLAG NO
[2021-02-19 07:03] LABS: Basophils Percent Auto 0.2 % (0-2); Eosinophils Absolute Auto 0.1 X10*3/uL (0.0-0.4); Hematocrit 38.3 % (37-47); Hemoglobin 12.4 g/dl (12.0-16.0); Imm Gran Abs Auto 0.01 X10*3/uL (0.00-0.03); Imm Gran Pct Auto 0.2 % (0.0-0.4); Lymphocytes Absolute Auto 1.1 X10*3/uL (1.2-4.9); Lymphocytes Percent Auto 19.9 % (20-40); Mean Corpuscular HGB Conc 32.4 g/dl (31.0-35.0); Mean Corpuscular Hemoglobin 29.7 pg (27.0-33.0); Mean Corpuscular Volume 91.6 fL (80-98); Mean Platelet Volume 11.2 fL (9.4-12.3); Monocytes Absolute Auto 0.6 X10*3/uL (0.1-1.2); Monocytes Percent Auto 9.9 % (2-11); Neutrophils Absolute Auto 3.8 X10*3/uL (2.0-8.3); Neutrophils Percent Auto 67.8 % (45-73); Platelet Count 173 X10*3/uL (160-400); Red Blood Count 4.18 X10*6/uL (4.20-5.50); Red Cell Distribution Width 13.1 % (11.0-16.0); White Blood Count 5.6 X10*3/uL (4.8-10.8)
[2021-02-19 08:23] LABS: Alanine Aminotransferase 30 U/L (0-31); Albumin Level 3.8 g/dL (3.5-5.0); Alkaline Phosphatase 102 U/L (39-117); Anion Gap 11 (12-20); Aspartate Amino Transferase 28 U/L (5-31); Bilirubin Total 0.5 mg/dL (0.0-1.0); Blood Urea Nitrogen 16 mg/dL (9-16); Calcium 8.9 mg/dL (8.4-10.2); Carbon Dioxide 27 mmol/L (22-29); Chloride 108 mmol/L (96-108); Cholesterol 99 mg/dL; Estimated Glomerular Filt Rate > 60; Glucose Fasting 81 mg/dL (60-99); HDL Cholesterol 36 mg/dL; Iron 41 mcg/dL (30-160); LDL Cholesterol Calculated 49 mg/dl; Percent Iron Saturation 18 % (15-50); Potassium 4.1 mmol/L (3.3-5.1); Sodium 142 mmol/L (135-145); Total Iron Binding Capacity 234 mcg/dL (228-428); Total Protein 5.7 g/dL (6.5-8.0); Triglycerides 73 mg/dL; Unsaturated Iron Binding 193 ug/dL
[2021-02-19 08:35] LABS: Thyroid Stimulating Hormone 0.87 uIU/mL (0.32-4.0); Vitamin D 25-OH Total 19.3 ng/mL (>30)
[2021-02-19 09:07] LABS: Estimated Average Glucose 88 mg/dL; Hemoglobin A1c % 4.7 %
[2021-02-19 10:51] LABS: Vitamin B12 1648 pg/mL (200-900)
[2021-02-22 06:57] LABS: Zinc 68 mcg/dL (60-130)
[2021-02-23 09:26] LABS: Vitamin B1 17 nmol/L (8-30)
[2021-02-25 13:20] LABS: Vitamin A 21 mcg/dL (38-98)
== END 2021-02-19 05:57 | disposition home or self-care (01) ==
LOC: HO.LAB 05:56
PROVIDERS: PCP Internal Medicine; Visit Provider Surgery
DX: Z01.818 Encounter for other preprocedural examination (principal); K91.2 Postsurgical malabsorption, not elsewhere classified; E55.9 Vitamin D deficiency, unspecified; Z90.3 Acquired absence of stomach [part of]
CPT/HCPCS: 36415; 80053; 80061; 82306; 82607; 83036; 83540; 84425; 84443; 84590; 84630; 85025

== ENCOUNTER 2021-04-03 09:06 | Outpatient (REF) | payer MEDICARE, SELFPAY ==
[2021-04-03 10:34] LABS: Vitamin D 25-OH Total 17.2 ng/mL (>30)
[2021-04-08 16:57] LABS: Vitamin A 25 mcg/dL (38-98)
== END 2021-04-03 09:07 | disposition home or self-care (01) ==
LOC: HO.LAB 09:06
PROVIDERS: PCP Internal Medicine; Visit Provider Surgery
DX: Z01.818 Encounter for other preprocedural examination (principal); E55.9 Vitamin D deficiency, unspecified; E50.9 Vitamin A deficiency, unspecified; Z98.84 Bariatric surgery status
CPT/HCPCS: 36415; 82306; 84590; 97803

== ENCOUNTER 2021-07-19 05:58 | Outpatient (REF) | payer MEDICARE, SELFPAY ==
[2021-07-19 06:11] LABS: MANUAL DIFF FLAG NO
[2021-07-19 06:58] LABS: Basophils Percent Auto 0.2 % (0-2); Eosinophils Absolute Auto 0.1 X10*3/uL (0.0-0.4); Eosinophils Percent Auto 2.1 % (0-4); Hematocrit 36.9 % (37.0-47.0); Imm Gran Abs Auto 0.01 X10*3/uL (0.00-0.03); Imm Gran Pct Auto 0.2 % (0.0-0.4); Immature Retic Fraction 8.7 % (3.0-15.9); Lymphocytes Absolute Auto 1.4 X10*3/uL (1.2-4.9); Lymphocytes Percent Auto 24.3 % (20-40); Mean Corpuscular HGB Conc 32.5 g/dl (31.0-35.0); Mean Corpuscular Hemoglobin 30.8 pg (27.0-33.0); Mean Corpuscular Volume 94.6 fL (80.0-98.0); Monocytes Absolute Auto 0.5 X10*3/uL (0.1-1.2); Monocytes Percent Auto 8.7 % (2-11); Neutrophils Absolute Auto 3.6 x10*3/uL (2.0-8.3); Neutrophils Percent Auto 64.5 % (45-73); Platelet Count 148 X10*3/uL (160-400); Red Cell Distribution Width 13.6 % (11.0-16.0); Retic HGB Equivalent 32.2 pg (30.0-35.0); Reticulocyte Percent 1.7 % (0.5-1.8); Reticulocytes Absolute 0.068 X10*6/uL (0.026-0.095); White Blood Count 5.6 X10*3/uL (4.8-10.8)
[2021-07-19 07:17] LABS: Estimated Average Glucose 82 mg/dL; Hemoglobin A1c % 4.5 %
[2021-07-19 07:29] LABS: Alanine Aminotransferase 28 U/L (0-31); Albumin Level 3.2 g/dL (3.5-5.0); Alkaline Phosphatase 121 U/L (39-117); Anion Gap 9 (12-20); Aspartate Amino Transferase 24 U/L (5-31); Bilirubin Total 0.7 mg/dL (0.0-1.0); Blood Urea Nitrogen 13 mg/dL (9-16); Calcium 8.8 mg/dL (8.4-10.2); Carbon Dioxide 29 mmol/L (22-29); Chloride 108 mmol/L (96-108); Cholesterol 102 mg/dL; Estimated Glomerular Filt Rate > 60; Glucose Random 69 mg/dL (60-115); HDL Cholesterol 42 mg/dL; Iron 76 mcg/dL (30-160); LDL Cholesterol Calculated 45 mg/dl; Percent Iron Saturation 36 % (15-50); Potassium 4.2 mmol/L (3.3-5.1); Sodium 142 mmol/L (135-145); Total Iron Binding Capacity 213 mcg/dL (228-428); Total Protein 5.3 g/dL (6.5-8.0); Triglycerides 77 mg/dL; Unsaturated Iron Binding 137 ug/dL
[2021-07-19 07:51] LABS: Ferritin 108 ng/mL (10-250); Free T4 (Free Thyroxine) 0.86 ng/dL (0.71-1.85); Vitamin D 25-OH Total 16.1 ng/mL (>30)
[2021-07-19 09:06] LABS: Folate 19.5 ng/mL (> or = 4.0); Vitamin B12 1068 pg/mL (200-900)
[2021-07-24 01:56] LABS: Zinc 47 mcg/dL (60-130)
[2021-07-25 14:46] LABS: Vitamin A 21 mcg/dL (38-98)
== END 2021-07-19 05:59 | disposition home or self-care (01) ==
LOC: HO.LAB 05:58
PROVIDERS: PCP Internal Medicine; Visit Provider Internal Medicine
DX: E78.00 Pure hypercholesterolemia, unspecified (principal); K90.89 Other intestinal malabsorption; Z98.84 Bariatric surgery status
CPT/HCPCS: 36415; 80053; 80061; 82306; 82607; 82728; 82746; 83036; 83540; 84439; 84443; 84590; 84630; 85025; 85045

== ENCOUNTER 2021-07-30 08:38 | Outpatient (REF) | payer MEDICARE, SELFPAY ==
--- NOTE | ~2021-07-30 | XR_ITS ---
EXAMINATION: XR AP STANDING BILATERAL KNEES XR LATERAL AND PATELLAR SUNRISE RIGHT KNEE XR LATERAL AND PATELLAR SUNRISE LEFT KNEE CLINICAL INFORMATION: Knee pain COMPARISON: 07/21/2019, 10/15/2016 TECHNIQUE: XR AP STANDING BILATERAL KNEES XR LATERAL AND PATELLAR SUNRISE RIGHT KNEE XR LATERAL AND PATELLAR SUNRISE LEFT KNEE FINDINGS: AP BILATERAL KNEE: Symmetric loss of medial and lateral joint spaces bilaterally with periarticular spurring. This appears stable compared to prior. RIGHT KNEE: Small joint effusion. Loss of patellofemoral compartment joint space. Spurring from the medial and lateral patellar facets. LEFT KNEE: Small joint effusion. The joint spaces preserved. Spurring from the medial and lateral patellar facets. XR/XR knee standing BI IMPRESSION: Tricompartmental osteoarthritis bilaterally, right greater than left. Small bilateral knee joint effusions.
--- NOTE | ~2021-07-30 | XR_ITS ---
EXAMINATION: XR AP STANDING BILATERAL KNEES XR LATERAL AND PATELLAR SUNRISE RIGHT KNEE XR LATERAL AND PATELLAR SUNRISE LEFT KNEE CLINICAL INFORMATION: Knee pain COMPARISON: 07/21/2019, 10/15/2016 TECHNIQUE: XR AP STANDING BILATERAL KNEES XR LATERAL AND PATELLAR [place] RIGHT KNEE XR LATERAL AND PATELLAR SUNRISE LEFT KNEE FINDINGS: AP BILATERAL KNEE: Symmetric loss of medial and lateral joint spaces bilaterally with periarticular spurring. This appears stable compared to prior. RIGHT KNEE: Small joint effusion. Loss of patellofemoral compartment joint space. Spurring from the medial and lateral patellar facets. LEFT KNEE: Small joint effusion. The joint spaces preserved. Spurring from the medial and lateral patellar facets. XR/XR knee RT 2V IMPRESSION: Tricompartmental osteoarthritis bilaterally, right greater than left. Small bilateral knee joint effusions.
--- NOTE | ~2021-07-30 | XR_ITS ---
EXAMINATION: XR AP STANDING BILATERAL KNEES XR LATERAL AND PATELLAR SUNRISE RIGHT KNEE XR LATERAL AND PATELLAR SUNRISE LEFT KNEE CLINICAL INFORMATION: Knee pain COMPARISON: 07/21/2019, 10/15/2016 TECHNIQUE: XR AP STANDING BILATERAL KNEES XR LATERAL AND PATELLAR [place] RIGHT KNEE XR LATERAL AND PATELLAR SUNRISE LEFT KNEE FINDINGS: AP BILATERAL KNEE: Symmetric loss of medial and lateral joint spaces bilaterally with periarticular spurring. This appears stable compared to prior. RIGHT KNEE: Small joint effusion. Loss of patellofemoral compartment joint space. Spurring from the medial and lateral patellar facets. LEFT KNEE: Small joint effusion. The joint spaces preserved. Spurring from the medial and lateral patellar facets. XR/XR knee LT 2V IMPRESSION: Tricompartmental osteoarthritis bilaterally, right greater than left. Small bilateral knee joint effusions.
== END 2021-07-30 08:39 | disposition home or self-care (01) ==
LOC: HO.HOSX 08:38
PROVIDERS: Visit Provider Orthopaedic Surgery
DX: M17.0 Bilateral primary osteoarthritis of knee (principal)
CPT/HCPCS: 73560; 73565; 99202

== ENCOUNTER → 2021-10-11 09:14 | Outpatient (BNVA) | payer MEDICARE, SELFPAY | PROVIDERS: PCP Internal Medicine; Visit Provider Orthopaedic Surgery | DX: M17.0 Bilateral primary osteoarthritis of knee (principal) | CPT/HCPCS: 20610; 99212; J1100 ==

== ENCOUNTER 2021-10-19 19:09 | Emergency (ER) | payer MEDICARE, SELFPAY ==
--- NOTE | ~2021-10-19 | XR_ITS ---
EXAMINATION: XR KNEE, LEFT CLINICAL INFORMATION: Pain. [place] a pop COMPARISON: Left knee 07/30/2021 TECHNIQUE: Two views of the left knee. FINDINGS: Marked degenerative change of knee. There is joint narrowing marginal bone spurs of the femoral tibial and patellofemoral joints. There is a suprapatellar joint effusion. No displaced fracture. If pain persists consider follow-up exam of MR or CT. XR/XR knee LT 2V IMPRESSION: 1. Degenerative joint disease. 2. No displaced fracture. 3. Joint effusion.
[2021-10-19 19:18] VITALS: BP 166/74; PULSE 71; RESP 16; TEMP 36.4; O2SAT 97; BMI 23.2
[2021-10-19] MEDS: Acetaminophen 325 MG TABLET 650 MG PO (19:31)
--- NOTE | 2021-10-20 01:30 | ED.FALL ---
HPI - Fall General Chief Complaint: Fall Stated Complaint: Fall Time Seen by Provider: 10/20/21 01:29 Source: patient Mode of arrival: ambulatory History of Present Illness HPI Narrative: 71-year-old female with a fall earlier today where her left knee got twisted, she denies head strike or loss of consciousness and currently is complaining of left knee pain. Related Data Home Medications Medication Instructions Recorded Confirmed diclofenac sodium 1 % topical gel TOPICAL PRN 10/14/20 07/12/21 (Voltaren) calcium citrate 1,000 mg tablet 1,000 mg PO DAILY 02/12/21 07/12/21 ipratropium bromide 21 mcg (0.03 1 spray INTRANASAL TID 02/12/21 07/12/21 %) nasal spray ocpeepjs-odbzqrec-skmt 45 mg-folic 1 cap PO DAILY cap 02/12/21 07/12/21 acid 800 mcg-vit K 120 mcg capsule (Bariatric Multivitamins) Previous Rx's Medication Instructions Recorded dicyclomine 10 mg capsule 10 mg PO TID #20 cap 10/25/20 atorvastatin 20 mg tablet 20 mg PO DAILY #90 tab 01/30/21 cetirizine 10 mg capsule (Zyrtec) 10 mg PO DAILY PRN #90 cap 02/12/21 vitamin A palmitate 10,000 unit 20,000 unit PO DAILY 30 Days #60 02/26/21 tablet tab mirabegron 50 mg tablet,extended 50 mg PO DAILY 90 Days #90 tab 03/22/21 release 24 hr (Myrbetriq) tizanidine 4 mg tablet 4 mg PO Q8H PRN #270 tab 07/10/21 cholestyramine-aspartame 4 gram 4 g PO BID #231 g 07/17/21 oral powder (Prevalite) ondansetron 4 mg disintegrating 4 mg PO Q8H PRN #20 tab 08/02/21 tablet meloxicam 15 mg tablet 15 mg PO DAILY #30 tab 08/19/21 pregabalin 50 mg capsule (Lyrica) 50 mg PO BID 30 Days #60 cap 09/17/21 Allergies Allergy/AdvReac Type Severity Reaction Status Date / Time hydrochlorothiazide Allergy Severe ANGIOEDEMA Verified 07/30/21 10:59 [HYDROCHLOROTHIAZIDE] lisinopril [LISINOPRIL] Allergy Severe ANGIOEDEMA Verified 07/30/21 10:59 Sulfa (Sulfonamide Allergy Severe FACIAL Verified 07/30/21 10:59 Antibiotics) SWELLING [SULFA (SULFONAMIDE ANTIBIOTICS)] iron [IRON] Allergy Intermediate NAUSEA Verified 07/30/21 10:59 lactose [LACTOSE] Allergy Intermediate DIARRHEA Verified 07/30/21 10:59 sertraline [From ZOLOFT] Allergy Intermediate INSOMNIA Verified 07/30/21 10:59 codeine Allergy Unknown Unknown Verified 07/30/21 10:59 lobster Allergy Anaphylaxis Uncoded 07/30/21 10:59 Review of Systems Review of Systems: Pertinent positives and negatives as stated in HPI 10 point review of systems is otherwise negative. [facility] Past Medical History Source: nursing notes reviewed Medical History Anemia COPD (chronic obstructive pulmonary disease) Degenerative disc disease, cervical Deviated septum Esophageal stricture GERD (gastroesophageal reflux disease) Hemorrhoids History of duodenal ulcer History of esophageal dilatation Hypercholesterolemia Hypertension Impaired glucose tolerance Obstructive sleep apnea Osteoarthritis of knees, bilateral Osteopenia Peptic ulcer disease Peripheral neuropathy Peripheral vascular disease RSD (reflex sympathetic dystrophy) Small bowel obstruction Spondylosis of cervical spine Tubular adenoma of colon Vitamin D deficiency Surgical History Cystocele History of arthroscopy of left knee History of cholecystectomy History of hemorrhoidectomy History of nasal surgery History of repair of hiatal hernia History of tonsillectomy History of tubal ligation History of umbilical hernia repair Hx of gastric bypass Family History Family History Father No problems noted. Mother No problems noted. Social History Social History Housing: Apartment Alcohol intake: former Patient Tobacco Use Status: Former Tobacco user Tobacco use type: Cigarette e-Cigarette/Vaping Use: Never Used Second Hand Smoke Exposure: No Advance Directives: No Advance Directives Information Provided: No service: No Current occupational status: retired Current occupation: right handed Gender identity: Female Physical Exam Vital Signs: Vital Signs: Last Vital Signs Temp 97.5 F 10/19/21 19:18 Pulse 71 10/19/21 19:18 Resp 16 10/19/21 19:18 BP 166/74 H 10/19/21 19:18 Pulse Ox 97 10/19/21 19:18 BMI result Body Mass Index 23.2 VITAL SIGNS: Reviewed. GENERAL: Well developed, well nourished, in no acute distress. HEAD: Normocephalic/atraumatic EYES: PERRLA, EOMI EARS: Ext canals without abnormality OROPHARYNX: no oral lesions noted, posterior pharynx clear LUNGS: Normal breath sounds. No adventitious sounds or accessory muscle use. SpO2<97> CARDIOVASCULAR: Regular rate and rhythm without noted murmurs ABDOMEN: Soft, non-tender, non-distended with bowel sounds. MUSCULOSKELETAL: No tenderness, deformities, but effusion noted to left knee with mild ecchymosis, palpable DP/PT with sensation intact EXTREMITIES: No cyanosis, clubbing or edema. SKIN: Inspection of the skin reveals no rashes NEUROLOGIC: Alert and oriented x 4. Strength and sensation to light touch were grossly intact x 4. Course Course Course Narrative: 71-year-old female with history and clinical presentation consistent with likely injury to the medial collateral ligaments of the left knee there is a small effusion, patient will be provided with combination analgesics/ice pack/Hao wrap/knee immobilizer as well as crutches. She was informed of all results and will be discharged home with instructions to follow-up with orthopedics for further imaging studies as indicated. Discharge Plan Discharge Clinical Impression: Injury of knee, left, Effusion of left knee Patient Disposition: Home, Self-Care Instructions: Crutch Instructions (ED), Swollen Knee Joint (ED), Knee Pain (ED), Knee Immobilizer (ED) Additional Instructions: 1. Resume all home medications as prescribed. 2. Tylenol 1000 mg, orally, every 6 hours as needed for pain control. Do not exceed 4000 mg within 24 hours. 3. Keep the Hao wrap and knee immobilizer in place at all times except while showering. Use crutches to minimize weight-bearing until you are further evaluated by Orthopedics. 4. An orthopedic referral has been provided to you below and you should reach out to them 1st thing on Friday morning. Return to the ER for worsening symptoms. Prescriptions: No Action dicyclomine 10 mg capsule 10 mg PO TID Qty: 20 0RF atorvastatin 20 mg tablet 20 mg PO DAILY Qty: 90 3RF Zyrtec 10 mg capsule 10 mg PO DAILY PRN (Reason: allergy symptoms) Qty: 90 3RF vitamin A palmitate 10,000 unit tablet 20,000 unit PO DAILY 30 Days Qty: 60 2RF Myrbetriq 50 mg tablet extended release 24 hr 50 mg PO DAILY 90 Days Qty: 90 2RF tizanidine 4 mg tablet 4 mg PO Q8H PRN (Reason: for muscle spasm) Qty: 270 0RF Prevalite 4 gram powder 4 g PO BID Qty: 231 4RF Rx Instructions: administer w/meal; avoid other meds within 1hr before or 4-6hr after dose ondansetron 4 mg tablet,disintegrating 4 mg PO Q8H PRN (Reason: nausea and vomiting) Qty: 20 0RF meloxicam 15 mg tablet 15 mg PO DAILY Qty: 30 4RF pregabalin [Lyrica] 50 mg capsule 50 mg PO BID 30 Days Qty: 60 2RF diclofenac sodium [Voltaren] 1 % Gel topical PRN (Reason: Pain) 0RF ipratropium bromide 21 mcg (0.03 %) spray,non-aerosol 1 spray intranasal TID 0RF Bariatric Multivitamins 45 mg iron- 800 mcg-120 mcg capsule 1 cap PO DAILY 0RF calcium citrate 1,000 mg tablet 1,000 mg PO DAILY 0RF Referrals: Po,Dwight Garcia MD [Primary Care Provider] - Ty Turner MD [Physician] -
[2021-10-20 01:32] VITALS: BP 173/75; PULSE 57; RESP 14; O2SAT 97
[2021-10-20] MEDS: Acetaminophen 325 MG TABLET 975 MG PO (02:18)
[2021-10-20] MEDS: Ketorolac Tromethamine 15 MG/ML VIAL IM (02:19)
--- NOTE | 2021-10-20 02:39 | PC.NURSE ---
pt a&o, no sob or chest pain. medicated for pain at discharge. Reviewed discharge instruction with pt. Pt verbalized understanding.
== END 2021-10-20 02:53 | disposition home or self-care (01) ==
PROVIDERS: Emergency Provider Student in an Organized Health Care Education/Training Program; PCP Internal Medicine
DX: S89.92XA Unspecified injury of left lower leg, initial encounter (principal); X50.1XXA Overexertion from prolonged static or awkward postures, initial encounter; Y93.9 Activity, unspecified; Y92.9 Unspecified place or not applicable; Y99.9 Unspecified external cause status; Z87.891 Personal history of nicotine dependence; Z98.84 Bariatric surgery status; Z79.899 Other long term (current) drug therapy
CPT/HCPCS: 73560; 96372; 99284; J1885

== ENCOUNTER → 2021-10-25 14:04 | Outpatient (BNVA) | payer MEDICARE, SELFPAY | PROVIDERS: PCP Internal Medicine; Visit Provider Orthopaedic Surgery | DX: M17.0 Bilateral primary osteoarthritis of knee (principal) | CPT/HCPCS: 99212 ==

== ENCOUNTER 2021-11-01 06:17 | Outpatient (REF) | payer OTHER, SELFPAY ==
[2021-11-01 08:07] LABS: Vitamin D 25-OH Total 16.7 ng/mL (>30)
[2021-11-06 06:17] LABS: Zinc 84 mcg/dL (60-130)
[2021-11-07 14:32] LABS: Vitamin A 41 mcg/dL (38-98)
== END 2021-11-01 06:18 | disposition home or self-care (01) ==
LOC: HO.LAB 06:17
PROVIDERS: PCP Internal Medicine; Visit Provider Physician Assistant
DX: Z71.3 Dietary counseling and surveillance (principal); Z98.84 Bariatric surgery status; Z90.3 Acquired absence of stomach [part of]
CPT/HCPCS: 36415; 82306; 84590; 84630; 97803

== ENCOUNTER 2021-11-07 16:48 | Outpatient (REF) | payer OTHER, SELFPAY ==
[2021-11-07 17:42] LABS: Appearance Urine CLOUDY; Color Urine YELLOW; Glucose Urine UA NEG (NEG); Leukocyte Esterase Urine 2+ (NEG); Nitrite Urine NEG (NEG); Specific Gravity - Urine 1.025 (1.005-1.025); UACC Culture Trigger YES; Urine Blood 3+ (NEG); Urine Ketones NEG (NEG); Urine Protein 2+ MG/DL (NEG-TRACE)
[2021-11-07 18:07] LABS: Bacteria Urine TRACE /LPF; RBC Urine TNTC /HPF (0); Squamous Epithelial Cell Urine TRACE /LPF; WBC Urine TNTC /HPF (0-4)
== END 2021-11-07 16:49 | disposition home or self-care (01) ==
LOC: HO.LAB 16:48
PROVIDERS: PCP Internal Medicine; Visit Provider Internal Medicine
DX: R30.0 Dysuria (principal)
CPT/HCPCS: 81001; 87086

== ENCOUNTER 2021-11-12 07:50 | Outpatient (RCR) | payer OTHER, SELFPAY | END 2021-12-25 14:06 | disposition home or self-care (01) | LOC: HO.PT 07:50 | PROVIDERS: PCP Internal Medicine; Visit Provider Obstetrics & Gynecology | DX: R10.2 Pelvic and perineal pain (principal) | CPT/HCPCS: 97112; 97161 ==

== ENCOUNTER 2021-11-16 09:00 | Outpatient (RCR) | payer MEDICARE, SELFPAY ==
--- NOTE | 2021-09-14 15:24 | MHC.PT.PR ---
[facility] [place] Office [place] Office [place] Office [address] Keanu Kelly 140 [facility] [phone] F: [phone] F: [phone] F: [phone] F: [phone] Physical Therapy Progress Note Diagnosis: ANA MARIA KNEE OA RIGHT > LEFT (KP) Date of Surgery: Date of Evaluation: 09/14/21 Treatments to Date: 1 Cancellations to Date: 0 No Shows to Date: 0 Subjective: SEE EVAL Pain Score and Location: 2 Objective Measures: SEE EVAL Assessment: HEATH IS A PLEASANT 71 YO FEMALE WHO PRESENTS WITH ANA MARIA KNEE OA (RIGHT GREATER THAN LEFT). UPON EXAM SHE DEMONSTRATES IMPAIRMENTS INCLUDING DECREASED ROM AND STRENGTH, ALTERED GAIT PATTERN AND DECREASED FUNCTIONAL MOBILITY. FUNCTIONAL LIMITATIONS INCLUDE INCREASED USE OF AD, DECREASED ABILITY TO PERFORM HOMEMAKING AND SELF CARE TASKS, DECREASED ABILITY TO PERFORM LONG PERIODS OF STANDING AND WALKING, DECREASED PARTICIPATION IN FITNESS AND RECREATIONAL ACTIVITIES. Pt IS A GOOD CANDIDATE FOR SKILLED PT DUE TO AGE, POTENTIAL REMEDIATION OF IMPAIRMENTS, TYPICAL DISEASE/CONDITION PROGRESSION AND PROGNOSIS, COMORBIDITIES, AND MOTIVATION. Pt WOULD BENEFIT FROM TAILORED PROGRAM OF THERAPEUTIC ACTIVITIES, FUNCTIONAL TRAINING, GAIT TRAINING, POSTURAL EDUCATION, NEUROMUSCULAR RE-EDUCATION, AND MODALITIES NEEDED. PT Plan: Frequency and Duration: The patient will be seen 2 X WEEKS FOR 4 X WEEKS Treatment Plan: Therapeutic Exercise Dynamic Therapeutic Activities Neuromuscular Re-ed Manual Therapies Joint Mobilization Taping Canalith Repositioning Gait Vestibular Therapy Home Exercise Program Patient Education Electrical Stimulation Iontophoresis Ultrasound Mechanical Traction Hot or Cold Pack Pelvic Floor Therapy Other Reviewed/ Agreed with Student Documentation: Therapist: Thank you once again for your referral.
== END 2021-12-27 11:30 | disposition home or self-care (01) ==
LOC: HO.PT 09:00
PROVIDERS: PCP Internal Medicine; Visit Provider Orthopaedic Surgery
DX: M17.0 Bilateral primary osteoarthritis of knee (principal)
CPT/HCPCS: 97035; 97110; 97140; 97161

== ENCOUNTER → 2021-11-23 08:28 | Outpatient (BNVA) | payer OTHER, SELFPAY | PROVIDERS: PCP Internal Medicine; Visit Provider Physician Assistant Surgical | DX: K43.9 Ventral hernia without obstruction or gangrene (principal); E46 Unspecified protein-calorie malnutrition; Z68.24 Body mass index [BMI] 24.0-24.9, adult; Z98.84 Bariatric surgery status | CPT/HCPCS: 99212 ==

== ENCOUNTER → 2021-11-30 09:49 | Outpatient (BNVA) | payer OTHER, SELFPAY | PROVIDERS: PCP Internal Medicine; Visit Provider Dietitian, Registered | DX: E66.3 Overweight (principal) | CPT/HCPCS: 97803 ==

== ENCOUNTER 2021-12-12 09:22 | Outpatient (REF) | payer OTHER, SELFPAY ==
--- NOTE | ~2021-12-12 | CT_ITS ---
EXAMINATION: CT ABDOMEN AND PELVIS WITHOUT CONTRAST CLINICAL INFORMATION: Ventral hernia without obstruction or gangrenous changes. COMPARISON: None TECHNIQUE: Multidetector volumetric imaging was performed from the superior aspect of the liver through the pubic symphysis. Sagittal and coronal reformatted images were obtained on the technologist's workstation. This CT examination was performed using dose optimization techniques as appropriate, variously including the following: *Automated exposure control *Adjustment of mA and/or kV according to patient size (this includes techniques or standardized protocols for targeted exams where dose is matched to indication/reason for exam; i.e. extremities or head) *Use of iterative reconstruction technique DLP: 361 mGy-cm FINDINGS: LUNG BASES: The visualized lung bases are unremarkable. There is mild cardiomegaly. LIVER, GALLBLADDER, AND BILIARY TREE: The liver is normal in size, shape, and attenuation. No focal hepatic lesion is seen. Stable moderate intra- and extra-hepatic biliary ductal dilatation is present. The gallbladder is surgically absent. PANCREAS: Unremarkable. SPLEEN: Unremarkable. ADRENAL GLANDS: The right adrenal gland is unremarkable. Within the posterior limb of the left adrenal gland, there is a 2.4 x 1.9 cm benign, fat-containing adenoma again seen, with precontrast Hounsfield value of 2.8 units. This is stable from prior CT examinations including 03/12/2013 (2:23). KIDNEYS AND URETERS: The kidneys are normal in size, shape, and attenuation. No perinephric stranding. At the interpolar aspect of the right kidney (6:239), a 4 mm nonobstructing calculus is seen. At the lower pole of the right kidney (6:23), a 1 mm nonobstructing calculus is seen. At the upper pole of the left kidney (6:61), a 3 mm nonobstructing calculus is seen. There is no right hydronephroureter, and no right ureteric calculus is seen. There is mild left hydronephrosis, without definite left ureteric calculus seen. There are multiple stable pelvic phleboliths. BLADDER: Unremarkable. GASTROINTESTINAL TRACT: There are postoperative changes of the stomach and proximal small bowel, consistent with the history of gastric bypass surgery. There is a large stool burden, suggesting possible constipation. No bowel obstruction, free intracranial air or abscess is seen. This no focal bowel wall thickening. There is no significant diverticulosis or diverticulitis. The vermiform appendix is not seen with certainty; however, there is no finding to suggest appendicitis. ABDOMINAL WALL: There is a continued stable anterior midline and left paramedian abdominal wall fluid collection measuring 5.9 x 2.0 x 4.0 cm. This shows a central Hounsfield value of 15.1 units. The possibility of a chronic, liquefied left rectus sheath hematoma is raised. LYMPH NODES: Normal. VASCULAR: There is moderate aortoiliac atherosclerotic calcification. No abdominal aortic aneurysm is seen. PELVIC VISCERA: The uterus is unremarkable. There are bilateral tubal ligation clips. A benign, simple 2.5 cm in maximal diameter right ovarian cyst is seen, for which no imaging follow-up is recommended. OSSEOUS STRUCTURES: There is multi-level thoracolumbar spondylosis. An L2-L3, there is degenerative disc disease, vacuum phenomenon. At L4-L5, there is a [address]/CT abdomen pelvis wo con IMPRESSION: 1. No focal abdominal wall hernia defect is presently seen. There is a stable anterior abdominal wall midline and left paramedian low-attenuation fluid collection, possibly representing a chronic upper left rectus sheath hematoma or a postoperative abdominal wall hematoma. 2. There are small nonobstructing bilateral renal calculi. There is mild left hydronephrosis, without hydroureter or ureteric calculus seen. 3. There is continued stable intra- and extra-hepatic biliary ductal dilatation. The gallbladder is surgically absent. 4. Findings suggest constipation, without portia bowel obstruction. 5. A benign, fat-containing left adrenal adenoma is redemonstrated. 6. There are multi-level degenerative changes of the thoracolumbar spine. 7. There is mild cardiomegaly. Fleischner guidelines were followed.
[2021-12-12 11:04] LABS: Anion Gap 11 (12-20); Blood Urea Nitrogen 23 mg/dL (9-16); Calcium 8.6 mg/dL (8.4-10.2); Carbon Dioxide 24 mmol/L (22-29); Chloride 111 mmol/L (96-108); Estimated Glomerular Filt Rate 52; Glucose Random 86 mg/dL (60-115); Potassium 4.8 mmol/L (3.3-5.1); Sodium 141 mmol/L (135-145)
[2021-12-12] MEDS: Barium Sulfate Oral (Berry) 450 ML ORAL.SUSP 900 ML PO (15:19)
== END 2021-12-12 09:23 | disposition home or self-care (01) ==
LOC: HO.CT 09:22
PROVIDERS: Absent Provider Physician Assistant Surgical; PCP Internal Medicine; Visit Provider Surgery
DX: K43.9 Ventral hernia without obstruction or gangrene (principal); K91.2 Postsurgical malabsorption, not elsewhere classified; Z98.84 Bariatric surgery status; Z90.3 Acquired absence of stomach [part of]
CPT/HCPCS: 36415; 74176; 80048

== ENCOUNTER → 2021-12-19 09:45 | Outpatient (BNVA) | payer OTHER, SELFPAY | PROVIDERS: PCP Internal Medicine; Visit Provider Surgery | DX: K91.873 Postprocedural seroma of a digestive system organ or structure following other procedure (principal); K90.89 Other intestinal malabsorption; G90.50 Complex regional pain syndrome I, unspecified; M50.30 Other cervical disc degeneration, unspecified cervical region; J43.1 Panlobular emphysema; Z98.84 Bariatric surgery status | CPT/HCPCS: 99202 ==

== ENCOUNTER 2021-12-27 05:54 | Outpatient (REF) | payer OTHER, SELFPAY ==
[2021-12-27 06:00] LABS: MANUAL DIFF FLAG NO
[2021-12-27 07:32] LABS: Basophils Percent Auto 0.2 % (0-2); Eosinophils Absolute Auto 0.1 X10*3/uL (0.0-0.4); Eosinophils Percent Auto 2.1 % (0-4); Hematocrit 34.7 % (37.0-47.0); Hemoglobin 11.3 g/dl (12.0-16.0); Imm Gran Abs Auto 0.01 X10*3/uL (0.00-0.03); Imm Gran Pct Auto 0.2 % (0.0-0.4); Lymphocytes Absolute Auto 1.4 X10*3/uL (1.2-4.9); Lymphocytes Percent Auto 31.7 % (20-40); Mean Corpuscular HGB Conc 32.6 g/dl (31.0-35.0); Mean Corpuscular Hemoglobin 30.5 pg (27.0-33.0); Mean Corpuscular Volume 93.5 fL (80.0-98.0); Mean Platelet Volume 11.2 fL (9.4-12.3); Monocytes Absolute Auto 0.5 X10*3/uL (0.1-1.2); Monocytes Percent Auto 12.2 % (2-11); Neutrophils Absolute Auto 2.3 x10*3/uL (2.0-8.3); Neutrophils Percent Auto 53.6 % (45-73); Platelet Count 155 X10*3/uL (160-400); Red Blood Count 3.71 X10*6/uL (4.20-5.50); Red Cell Distribution Width 13.7 % (11.0-16.0); White Blood Count 4.3 X10*3/uL (4.8-10.8)
[2021-12-27 07:42] LABS: Estimated Average Glucose 82 mg/dL; Hemoglobin A1c % 4.5 %
[2021-12-27 08:00] LABS: Alanine Aminotransferase 22 U/L (0-31); Albumin Level 3.9 g/dL (3.5-5.0); Alkaline Phosphatase 116 U/L (39-117); Anion Gap 12 (12-20); Aspartate Amino Transferase 21 U/L (5-31); Bilirubin Total 0.5 mg/dL (0.0-1.0); Blood Urea Nitrogen 26 mg/dL (9-16); Calcium 8.9 mg/dL (8.4-10.2); Carbon Dioxide 26 mmol/L (22-29); Chloride 108 mmol/L (96-108); Cholesterol 136 mg/dL; Estimated Glomerular Filt Rate > 60; Glucose Random 87 mg/dL (60-115); HDL Cholesterol 39 mg/dL; LDL Cholesterol Calculated 73 mg/dl; Potassium 4.3 mmol/L (3.3-5.1); Sodium 142 mmol/L (135-145); Triglycerides 123 mg/dL
[2021-12-27 08:38] LABS: Appearance Urine CLEAR; Color Urine YELLOW; Glucose Urine UA NEG (NEG); Leukocyte Esterase Urine NEG (NEG); Nitrite Urine NEG (NEG); PH 5.5 (5.0-8.0); Specific Gravity - Urine 1.025 (1.005-1.025); Urine Blood NEG (NEG); Urine Ketones NEG (NEG); Urine Protein NEG (NEG-TRACE)
== END 2021-12-27 05:55 | disposition home or self-care (01) ==
LOC: HO.LAB 05:54
PROVIDERS: PCP Internal Medicine; Visit Provider Internal Medicine
DX: R30.0 Dysuria (principal); E78.00 Pure hypercholesterolemia, unspecified
CPT/HCPCS: 36415; 80053; 80061; 81003; 83036; 85025

== ENCOUNTER → 2021-12-31 10:10 | Outpatient (BNVA) | payer OTHER, SELFPAY | PROVIDERS: PCP Internal Medicine; Visit Provider Dietitian, Registered | DX: E66.9 Obesity, unspecified (principal); Z71.3 Dietary counseling and surveillance | CPT/HCPCS: 97803 ==

== ENCOUNTER → 2022-01-01 08:11 | Outpatient (BNVA) | payer OTHER, SELFPAY | PROVIDERS: PCP Internal Medicine; Visit Provider Surgery | DX: K91.873 Postprocedural seroma of a digestive system organ or structure following other procedure (principal); E46 Unspecified protein-calorie malnutrition; K90.89 Other intestinal malabsorption; I73.9 Peripheral vascular disease, unspecified; N32.9 Bladder disorder, unspecified; N81.11 Cystocele, midline; J43.1 Panlobular emphysema; D64.9 Anemia, unspecified; I10 Essential (primary) hypertension; Z98.84 Bariatric surgery status | CPT/HCPCS: 99212 ==

== ENCOUNTER → 2022-01-17 09:18 | Outpatient (BNVA) | payer OTHER, SELFPAY | PROVIDERS: PCP Internal Medicine; Visit Provider Orthopaedic Surgery | DX: M17.0 Bilateral primary osteoarthritis of knee (principal) | CPT/HCPCS: 20610; 99212; J1100 ==

== ENCOUNTER → 2022-01-21 12:49 | Outpatient (BNVA) | payer OTHER, SELFPAY | PROVIDERS: PCP Internal Medicine; Visit Provider Counselor Mental Health | DX: F50.81 Binge eating disorder (principal); Z98.84 Bariatric surgery status | CPT/HCPCS: 90834 ==

== ENCOUNTER 2022-01-22 05:58 | Outpatient (REF) | payer OTHER, SELFPAY ==
[2022-01-22 06:04] LABS: MANUAL DIFF FLAG NO
[2022-01-22 07:14] LABS: Basophils Percent Auto 0.2 % (0-2); Eosinophils Absolute Auto 0.2 X10*3/uL (0.0-0.4); Eosinophils Percent Auto 3.4 % (0-4); Hematocrit 36.8 % (37.0-47.0); Hemoglobin 12.1 g/dl (12.0-16.0); Imm Gran Abs Auto 0.01 X10*3/uL (0.00-0.03); Imm Gran Pct Auto 0.2 % (0.0-0.4); Immature Retic Fraction 10.4 % (3.0-15.9); Lymphocytes Absolute Auto 1.8 X10*3/uL (1.2-4.9); Lymphocytes Percent Auto 37.3 % (20-40); Mean Corpuscular HGB Conc 32.9 g/dl (31.0-35.0); Mean Corpuscular Hemoglobin 30.1 pg (27.0-33.0); Mean Corpuscular Volume 91.5 fL (80.0-98.0); Mean Platelet Volume 10.4 fL (9.4-12.3); Monocytes Absolute Auto 0.4 X10*3/uL (0.1-1.2); Monocytes Percent Auto 7.8 % (2-11); Neutrophils Absolute Auto 2.4 x10*3/uL (2.0-8.3); Neutrophils Percent Auto 51.1 % (45-73); Platelet Count 164 X10*3/uL (160-400); Red Blood Count 4.02 X10*6/uL (4.20-5.50); Red Cell Distribution Width 12.7 % (11.0-16.0); Retic HGB Equivalent 34.2 pg (30.0-35.0); White Blood Count 4.7 X10*3/uL (4.8-10.8)
[2022-01-22 07:46] LABS: C Reactive Protein 0.06 mg/dL (< or = 0.50); Iron 80 mcg/dL (30-160); Percent Iron Saturation 23 % (15-50); Total Iron Binding Capacity 352 mcg/dL (228-428); Unsaturated Iron Binding 272 ug/dL
[2022-01-22 08:00] LABS: Ferritin 20 ng/mL (10-250)
[2022-01-22 08:04] LABS: TSH reflex Free T4 1.37 uIU/mL (0.32-4.0)
[2022-01-22 08:28] LABS: Folate > 20.0 ng/mL (> or = 4.0); Vitamin B12 671 pg/mL (200-900)
[2022-01-22 08:46] LABS: Insulin 4 uU/mL (2-29)
[2022-01-24 12:26] LABS: Calcium (PTHI) 9.2 mg/dL (8.6-10.4); PTHI 72 pg/mL (16-77)
[2022-01-25 06:07] LABS: Zinc 82 mcg/dL (60-130)
[2022-01-26 13:45] LABS: Vitamin B1 25 nmol/L (8-30)
[2022-01-26 20:47] LABS: Vitamin A 38 mcg/dL (38-98)
== END 2022-01-22 05:59 | disposition home or self-care (01) ==
LOC: HO.LAB 05:58
PROVIDERS: Absent Provider Internal Medicine; PCP Internal Medicine; Visit Provider Physician Assistant Surgical
DX: K91.2 Postsurgical malabsorption, not elsewhere classified (principal); D64.9 Anemia, unspecified; Z90.3 Acquired absence of stomach [part of]; Z98.84 Bariatric surgery status
CPT/HCPCS: 36415; 82306; 82607; 82728; 82746; 83525; 83540; 83970; 84425; 84443; 84590; 84630; 85025; 85045; 86140

== ENCOUNTER → 2022-02-05 13:45 | Outpatient (BNVA) | payer OTHER, SELFPAY | PROVIDERS: PCP Internal Medicine; Visit Provider Dietitian, Registered | DX: E66.9 Obesity, unspecified (principal); Z71.3 Dietary counseling and surveillance | CPT/HCPCS: 97803 ==

== ENCOUNTER → 2022-03-01 09:09 | Outpatient (BNVA) | payer OTHER, SELFPAY | PROVIDERS: PCP Internal Medicine; Visit Provider Surgery | DX: K91.873 Postprocedural seroma of a digestive system organ or structure following other procedure (principal); M17.0 Bilateral primary osteoarthritis of knee; N32.9 Bladder disorder, unspecified; Z98.84 Bariatric surgery status | CPT/HCPCS: 99212 ==

== ENCOUNTER → 2022-03-06 09:50 | Outpatient (BNVA) | payer OTHER, SELFPAY | PROVIDERS: PCP Internal Medicine; Visit Provider Physician Assistant Surgical | DX: E66.3 Overweight (principal); Z68.25 Body mass index [BMI] 25.0-25.9, adult; Z98.84 Bariatric surgery status | CPT/HCPCS: 99212 ==

== ENCOUNTER 2022-03-11 09:00 | Outpatient (RCR) | payer OTHER, SELFPAY | END 2022-04-23 09:01 | disposition home or self-care (01) | LOC: HO.PT 09:00 | PROVIDERS: PCP Internal Medicine; Visit Provider Obstetrics & Gynecology | DX: R10.2 Pelvic and perineal pain (principal); Z98.890 Other specified postprocedural states | CPT/HCPCS: 97110; 97112; 97140; 97161 ==

== ENCOUNTER → 2022-04-24 10:53 | Outpatient (BNVA) | payer OTHER, SELFPAY | PROVIDERS: PCP Internal Medicine; Visit Provider Counselor Mental Health | DX: F50.81 Binge eating disorder (principal); Z98.84 Bariatric surgery status | CPT/HCPCS: 90834 ==

== ENCOUNTER → 2022-05-01 17:00 | Outpatient (BNVA) | payer OTHER, SELFPAY | PROVIDERS: PCP Internal Medicine; Visit Provider Counselor Mental Health | DX: F50.81 Binge eating disorder (principal); Z98.84 Bariatric surgery status | CPT/HCPCS: 90853 ==

== ENCOUNTER 2022-05-15 15:56 | Outpatient (REF) | payer OTHER, SELFPAY ==
[2022-05-15 18:07] LABS: Appearance Urine Turbid; Color Urine Yellow; Glucose Urine UA Negative (Negative); Leukocyte Esterase Urine Large (3+) (Negative); Nitrite Urine Positive (Negative); UMIC TRIGGER UACC YES; Urine Blood Large (3+) (Negative); Urine Ketones Negative (Negative); Urine Protein 100 (2+) mg/dL (Neg-Trace)
[2022-05-15 18:13] LABS: Bacteria Urine 4+ (None Seen); Hyaline Casts Urine 0-2 /LPF (0-2); RBC Urine >20 /HPF (0-2); UACC Culture Trigger YES; WBC Urine >50 /HPF (0-5)
== END 2022-05-15 15:57 | disposition home or self-care (01) ==
LOC: HO.LAB 15:56
PROVIDERS: Absent Provider Physician Assistant; PCP Internal Medicine; Visit Provider Counselor Mental Health
DX: F50.81 Binge eating disorder (principal); Z98.84 Bariatric surgery status
CPT/HCPCS: 81001; 87086; 87088; 87186; 90834; 90853

== ENCOUNTER → 2022-05-23 15:22 | Outpatient (BNVA) | payer OTHER, SELFPAY | PROVIDERS: PCP Internal Medicine; Visit Provider Orthopaedic Surgery | DX: M17.0 Bilateral primary osteoarthritis of knee (principal) | CPT/HCPCS: 99212; J1100 ==

== ENCOUNTER 2022-05-28 15:03 | Outpatient (REF) | payer OTHER, SELFPAY ==
[2022-05-28 16:06] LABS: Appearance Urine Turbid; Color Urine Yellow; Glucose Urine UA Negative (Negative); Leukocyte Esterase Urine Large (3+) (Negative); Nitrite Urine Positive (Negative); UMIC TRIGGER UACC YES; Urine Blood Large (3+) (Negative); Urine Ketones Negative (Negative); Urine Protein 100 (2+) mg/dL (Neg-Trace)
[2022-05-28 16:09] LABS: Bacteria Urine 4+ (None Seen); Hyaline Casts Urine 0-2 /LPF (0-2); RBC Urine >20 /HPF (0-2); Squamous Epithelial Cell Urine 0-2 /HPF (0-2); UACC Culture Trigger YES; WBC Urine >50 /HPF (0-5)
== END 2022-05-28 15:04 | disposition home or self-care (01) ==
LOC: HO.LAB 15:03
PROVIDERS: PCP Internal Medicine; Visit Provider Internal Medicine
DX: N39.0 Urinary tract infection, site not specified (principal); R32 Unspecified urinary incontinence
CPT/HCPCS: 81001; 87086; 87088; 87186

== ENCOUNTER → 2022-05-30 14:45 | Outpatient (BNVA) | payer OTHER, SELFPAY | PROVIDERS: PCP Internal Medicine; Visit Provider Dietitian, Registered | DX: E66.9 Obesity, unspecified (principal); Z98.84 Bariatric surgery status; Z71.3 Dietary counseling and surveillance | CPT/HCPCS: 97803 ==

== ENCOUNTER → 2022-06-04 08:40 | Outpatient (BNVA) | payer OTHER, SELFPAY | PROVIDERS: PCP Internal Medicine; Visit Provider Nurse Practitioner Family | DX: N39.0 Urinary tract infection, site not specified (principal); N20.0 Calculus of kidney | CPT/HCPCS: 51798; 99202 ==

== ENCOUNTER → 2022-06-12 17:00 | Outpatient (BNVA) | payer OTHER, SELFPAY | PROVIDERS: PCP Internal Medicine; Visit Provider Counselor Mental Health | DX: F50.81 Binge eating disorder (principal); Z98.84 Bariatric surgery status | CPT/HCPCS: 90853 ==

== ENCOUNTER 2022-06-18 11:51 | Outpatient (REF) | payer OTHER, SELFPAY ==
[2022-06-18 13:31] LABS: Appearance Urine Turbid; Color Urine Dark Yellow; Glucose Urine UA Negative (Negative); Leukocyte Esterase Urine Large (3+) (Negative); Nitrite Urine Positive (Negative); PH 5.5 (5.0-9.0); UMIC TRIGGER UA YES; UMIC TRIGGER UACC YES; Urine Blood Large (3+) (Negative); Urine Ketones Trace mg/dL (Negative); Urine Protein 300 (3+) mg/dL (Neg-Trace)
[2022-06-18 13:35] LABS: Bacteria Urine 4+ (None Seen); Hyaline Casts Urine 0-2 /LPF (0-2); RBC Urine >20 /HPF (0-2); UACC Culture Trigger YES; WBC Urine >50 /HPF (0-5)
== END 2022-06-18 11:52 | disposition home or self-care (01) ==
LOC: HO.LAB 11:51
PROVIDERS: PCP Internal Medicine; Visit Provider Nurse Practitioner Family
DX: N39.0 Urinary tract infection, site not specified (principal)
CPT/HCPCS: 81001; 87086; 87088; 87186

== ENCOUNTER → 2022-06-27 08:52 | Outpatient (BNVA) | payer OTHER, SELFPAY | PROVIDERS: PCP Internal Medicine; Visit Provider Dietitian, Registered | DX: Z98.84 Bariatric surgery status (principal) | CPT/HCPCS: 97803 ==

== ENCOUNTER 2022-07-02 16:15 | Outpatient (REF) | payer OTHER, SELFPAY ==
[2022-07-02 17:39] LABS: Iron 40 mcg/dL (30-160); Percent Iron Saturation 15 % (15-50); Total Iron Binding Capacity 267 mcg/dL (228-428); Unsaturated Iron Binding 227 ug/dL
[2022-07-02 17:41] LABS: Appearance Urine Cloudy; Color Urine Yellow; Glucose Urine UA Negative (Negative); Leukocyte Esterase Urine Small (1+) (Negative); Nitrite Urine Negative (Negative); PH 6.5 (5.0-9.0); UMIC TRIGGER UACC YES; Urine Blood Large (3+) (Negative); Urine Ketones Negative (Negative); Urine Protein 30 (1+) mg/dL (Neg-Trace)
[2022-07-02 17:47] LABS: Bacteria Urine None Seen (None Seen); Hyaline Casts Urine 0-2 /LPF (0-2); RBC Urine >20 /HPF (0-2); UACC Culture Trigger YES; WBC Urine >50 /HPF (0-5)
[2022-07-02 18:09] LABS: Ferritin 55 ng/mL (10-250); Folate 17.5 ng/mL (> or = 4.0); Vitamin B12 1605 pg/mL (200-900)
== END 2022-07-02 16:16 | disposition home or self-care (01) ==
LOC: HO.LAB 16:15
PROVIDERS: Physician Assistant Surgical; PCP Internal Medicine; Visit Provider Nurse Practitioner Family
DX: N39.0 Urinary tract infection, site not specified (principal); K91.2 Postsurgical malabsorption, not elsewhere classified; R32 Unspecified urinary incontinence; Z90.3 Acquired absence of stomach [part of]; Z98.84 Bariatric surgery status
CPT/HCPCS: 36415; 81001; 82607; 82728; 82746; 83540; 87086

== ENCOUNTER → 2022-07-17 13:19 | Outpatient (BNVA) | payer OTHER, SELFPAY | PROVIDERS: PCP Internal Medicine; Visit Provider Counselor Mental Health | DX: F50.81 Binge eating disorder (principal); Z98.84 Bariatric surgery status | CPT/HCPCS: 90834 ==

== ENCOUNTER 2022-07-22 07:41 | Outpatient (REF) | payer OTHER, SELFPAY ==
--- NOTE | ~2022-07-22 | US_ITS ---
EXAMINATION: US RETROPERITONEAL LIMITED (RENAL ONLY) CLINICAL INFORMATION: Urinary tract infection, site not specified. COMPARISON: CT abdomen and pelvis without contrast 12/12/2021. X-ray abdomen complete 02/11/2019. X-ray abdomen and chest 06/07/2016. TECHNIQUE: Real-time imaging of the kidneys. FINDINGS: RIGHT KIDNEY: 10.6 x 5.4 x 3.4 cm (SAG x AP x TRV). The kidney is normal in size, contour, and echogenicity. Renal cortical thickness is normal. No focal parenchymal lesions or hydronephrosis. There is a nonobstructive echogenic stone lower pole measuring 0.3 x 0.2 x 0.2 cm. No additional echogenic stones seen. Several radiopaque calculi was seen right kidney on previous CT abdomen exam 12/12/2021 which are not seen on the present ultrasound exam. LEFT KIDNEY: 11.6 x 5.0 x 5.2 cm (SAG x AP x TRV). The kidney is normal in size, contour, and echogenicity. Renal cortical thickness is normal. No calculi or focal parenchymal lesions. No hydronephrosis. US/US retroperitoneal limited IMPRESSION: 1. Nonobstructive echogenic stone lower pole right kidney. 2. Left kidney is unremarkable.
== END 2022-07-22 07:42 | disposition home or self-care (01) ==
LOC: HO.US 07:41
PROVIDERS: PCP Internal Medicine; Visit Provider Nurse Practitioner Family
DX: N20.0 Calculus of kidney (principal); N39.0 Urinary tract infection, site not specified
CPT/HCPCS: 76775

== ENCOUNTER → 2022-08-09 08:33 | Outpatient (BNVA) | payer OTHER, SELFPAY | PROVIDERS: PCP Internal Medicine; Visit Provider Dietitian, Registered | DX: N39.0 Urinary tract infection, site not specified (principal); R32 Unspecified urinary incontinence; Z13.89 Encounter for screening for other disorder | CPT/HCPCS: 51798; 97803; 99212 ==

== ENCOUNTER → 2022-10-08 09:45 | Outpatient (BNVA) | payer OTHER, SELFPAY | PROVIDERS: PCP Internal Medicine; Visit Provider Dietitian, Registered | DX: K91.1 Postgastric surgery syndromes (principal); Z98.84 Bariatric surgery status | CPT/HCPCS: 97803 ==

== ENCOUNTER 2022-10-22 15:15 | Outpatient (REF) | payer OTHER, SELFPAY ==
--- NOTE | 2022-10-22 15:21 | ECG_ITS ---
Test Reason : PREOP Blood Pressure : / mmHG Vent. 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
[2022-10-22 16:08] LABS: MANUAL DIFF FLAG NO
[2022-10-22 17:36] LABS: Basophils Percent Auto 0.2 % (0-2); Eosinophils Absolute Auto 0.1 X10*3/uL (0.0-0.4); Eosinophils Percent Auto 2.2 % (0-4); Hemoglobin 11.6 g/dl (12.0-16.0); Imm Gran Abs Auto 0.01 X10*3/uL (0.00-0.03); Imm Gran Pct Auto 0.2 % (0.0-0.4); Immature Retic Fraction 10.2 % (3.0-15.9); Lymphocytes Absolute Auto 1.3 X10*3/uL (1.2-4.9); Lymphocytes Percent Auto 26.4 % (20-40); Mean Corpuscular HGB Conc 31.4 g/dl (31.0-35.0); Mean Corpuscular Volume 92.5 fL (80.0-98.0); Mean Platelet Volume 10.9 fL (9.4-12.3); Monocytes Absolute Auto 0.5 X10*3/uL (0.1-1.2); Monocytes Percent Auto 10.8 % (2-11); Neutrophils Percent Auto 60.2 % (45-73); Platelet Count 179 X10*3/uL (160-400); Red Cell Distribution Width 15.9 % (11.0-16.0); Retic HGB Equivalent 35.9 pg (30.0-35.0); Reticulocyte Percent 1.5 % (0.5-1.8); Reticulocytes Absolute 0.059 X10*6/uL (0.026-0.095); White Blood Count 4.9 X10*3/uL (4.8-10.8)
[2022-10-22 18:39] LABS: Alanine Aminotransferase 22 U/L (0-31); Alkaline Phosphatase 113 U/L (39-117); Anion Gap 11 (12-20); Aspartate Amino Transferase 22 U/L (5-31); Bilirubin Total 0.5 mg/dL (0.0-1.0); Blood Urea Nitrogen 19 mg/dL (9-16); Carbon Dioxide 27 mmol/L (22-29); Chloride 108 mmol/L (96-108); Estimated Glomerular Filt Rate > 60; Glucose Random 75 mg/dL (60-115); Iron 82 mcg/dL (30-160); Percent Iron Saturation 27 % (15-50); Potassium 4.6 mmol/L (3.3-5.1); Sodium 141 mmol/L (135-145); Total Iron Binding Capacity 303 mcg/dL (228-428); Total Protein 6.4 g/dL (6.5-8.0); Unsaturated Iron Binding 221 ug/dL
[2022-10-22 19:00] LABS: Ferritin 30 ng/mL (10-250); Folate 18.1 ng/mL (> or = 4.0); Free T4 (Free Thyroxine) 0.91 ng/dL (0.71-1.85); Thyroid Stimulating Hormone 0.78 uIU/mL (0.32-4.0); Vitamin B12 908 pg/mL (200-900)
== END 2022-10-22 15:16 | disposition home or self-care (01) ==
LOC: HO.LAB 15:15
PROVIDERS: PCP Internal Medicine; Visit Provider Nurse Practitioner Family
DX: Z01.818 Encounter for other preprocedural examination (principal); E78.00 Pure hypercholesterolemia, unspecified; M85.80 Other specified disorders of bone density and structure, unspecified site; D64.9 Anemia, unspecified
CPT/HCPCS: 36415; 80053; 82306; 82607; 82728; 82746; 83540; 84439; 84443; 85025; 85045; 93005

== ENCOUNTER 2022-10-24 07:17 | Outpatient (REF) | payer OTHER, SELFPAY ==
[2022-10-24 08:41] LABS: Appearance Urine Clear; Color Urine Yellow; Glucose Urine UA Negative (Negative); Leukocyte Esterase Urine Small (1+) (Negative); Nitrite Urine Negative (Negative); PH 5.5 (5.0-9.0); UMIC TRIGGER UA YES; Urine Blood Small (1+) (Negative); Urine Ketones Negative (Negative); Urine Protein Negative (Neg-Trace)
[2022-10-24 08:44] LABS: Bacteria Urine None Seen (None Seen); Hyaline Casts Urine 0-2 /LPF (0-2)
[2022-10-24 09:13] LABS: Alanine Aminotransferase 23 U/L (0-31); Albumin Level 3.9 g/dL (3.5-5.0); Alkaline Phosphatase 104 U/L (39-117); Anion Gap 11 (12-20); Aspartate Amino Transferase 22 U/L (5-31); Bilirubin Total 0.5 mg/dL (0.0-1.0); Blood Urea Nitrogen 14 mg/dL (9-16); Calcium 9.1 mg/dL (8.4-10.2); Carbon Dioxide 27 mmol/L (22-29); Chloride 108 mmol/L (96-108); Cholesterol 161 mg/dL; Estimated Glomerular Filt Rate > 60; Glucose Random 85 mg/dL (60-115); HDL Cholesterol 46 mg/dL; LDL Cholesterol Calculated 90 mg/dl; Potassium 4.9 mmol/L (3.3-5.1); Sodium 141 mmol/L (135-145); Total Protein 6.1 g/dL (6.5-8.0); Triglycerides 128 mg/dL
== END 2022-10-24 07:18 | disposition home or self-care (01) ==
LOC: HO.LAB 07:17
PROVIDERS: Nurse Practitioner Family; PCP Internal Medicine; Visit Provider Internal Medicine
DX: Z01.812 Encounter for preprocedural laboratory examination (principal); E78.00 Pure hypercholesterolemia, unspecified
CPT/HCPCS: 36415; 80053; 80061; 81001; 84443

== ENCOUNTER → 2022-10-25 10:52 | Outpatient (BNVA) | payer OTHER, SELFPAY | PROVIDERS: PCP Internal Medicine; Visit Provider Physician Assistant Surgical | DX: K91.2 Postsurgical malabsorption, not elsewhere classified (principal); Z98.84 Bariatric surgery status; Z90.3 Acquired absence of stomach [part of] | CPT/HCPCS: 99212 ==

== ENCOUNTER 2022-11-01 12:53 | Outpatient (REF) | payer OTHER, SELFPAY ==
--- NOTE | ~2022-11-01 | MM_ITS ---
EXAMINATION: BONE DENSITOMETRY CLINICAL INDICATION: Osteoporosis. COMPARISON: Previous BD dated 10/27/2020 and baseline BD dated 10/14/2008. TECHNIQUE: Using a [employer]er[employer] DXA System (software version: 13.1) manufactured by [employer], dual-energy x-ray absorptiometry was performed of the lumbar spine and left hip. The images are of good technical quality. Summary results are attached. FINDINGS: AP SPINE L1-L4: Current: BMD 1.017 g/cm2, Z-score 0.6, T-score -1.4, osteopenia, 8.1% decrease from previous, 10.5% decrease from baseline (<5% change is not significant). Prior: BMD 1.107 g/cm2. Baseline: BMD 1.136 g/cm2. LEFT FEMUR, NECK: Current: BMD 0.664 g/cm2, Z-score -0.7, T-score -2.7, osteoporosis. Prior: BMD 0.710 g/cm2. Baseline: BMD 0.841 g/cm2. LEFT FEMUR, TOTAL: Current: BMD 0.730 g/cm2, Z-score -0.4, T-score -2.2, osteopenia, 13.1% decrease from previous, 31.7% decrease from baseline (<5% change is not significant). Prior: BMD 0.840 g/cm2. Baseline: BMD 1.069 g/cm2. IDENTIFIED RISK FACTORS: Menopause, height loss, history of fracture (adult), low calcium intake, secondary osteoporosis. HISTORY OF FRACTURE: Wrists, lower leg. MEDICATIONS: Multivitamin, vitamin D. MM/XR DEXA axial skeleton IMPRESSION: 1. DIAGNOSIS: Osteoporosis based on the lowest T-score value of -2.7 in the femoral neck applying World Health Organization criteria. 2. 10-YEAR FRACTURE RISK PREDICTION, FRAX: According to the guidelines, FRAX calculation should only be performed on patients in the osteopenia bone density category. Therefore, FRAX was not performed on this patient. 3. Treatment Recommendations: NOF guidelines recommend consideration for treatment in postmenopausal women and men age 50 and older presenting with the following: -A hip or vertebral (clinical or morphometric) fracture. -T-score less than or equal to -2.5 at the femoral neck or spine after appropriate evaluation to exclude secondary causes. -Low bone mass at the hip or spine and a 10-year fracture probability by FRAX of greater than or equal to 3% for hip fracture or greater than or equal to 20% for major osteoporotic fracture based on the [place] adapted WHO algorithm. 4. Other Recommendations: All treatment decisions require clinical judgment and consideration of individual patient factors, including patient preferences, comorbidities, previous drug use, risk factors not captured in the FRAX model (e.g. frailty, falls, vitamin D deficiency, increased bone turnover, interval significant decline in bone density) and possible under or overestimation of fracture risk by FRAX. Additional medical evaluation for secondary cause of low bone mineral density may be appropriate. FUTURE SCAN RECOMMENDATION: People with diagnosed cases of osteoporosis or at high risk for fracture should have regular bone mineral density tests. For patients eligible for Medicare, routine testing is allowed once every 2 years. The testing frequency can be increased to one year for patients who have rapidly progressing disease, those who are receiving or discontinuing medical therapy to restore bone mass, or have additional risk factors.
== END 2022-11-01 12:54 | disposition home or self-care (01) ==
LOC: HO.MAMMO 12:53
PROVIDERS: PCP Internal Medicine; Visit Provider Internal Medicine
DX: Z13.820 Encounter for screening for osteoporosis (principal); Z78.0 Asymptomatic menopausal state; M81.0 Age-related osteoporosis without current pathological fracture
CPT/HCPCS: 77080

== ENCOUNTER → 2022-11-06 11:20 | Outpatient (BNVA) | payer OTHER, SELFPAY | PROVIDERS: Visit Provider Counselor Mental Health ==

== ENCOUNTER → 2022-11-08 13:19 | Outpatient (BNVA) | payer OTHER, SELFPAY | PROVIDERS: PCP Internal Medicine; Visit Provider Dietitian, Registered | DX: K90.49 Malabsorption due to intolerance, not elsewhere classified (principal); K91.1 Postgastric surgery syndromes; Z98.84 Bariatric surgery status; Z71.3 Dietary counseling and surveillance | CPT/HCPCS: 97803 ==

== ENCOUNTER 2022-12-09 14:57 | Outpatient (AMB) | payer OTHER, SELFPAY ==
--- NOTE | 2022-12-09 15:20 | A.OFFWM_ITS ---
Intake Intake Visit Reasons: (TV) PO LSG 02/10/19 Allergies hydrochlorothiazide [HYDROCHLOROTHIAZIDE] Allergy (Severe, Verified 10/25/22 10:57) ANGIOEDEMA lisinopril [LISINOPRIL] Allergy (Severe, Verified 10/25/22 10:57) ANGIOEDEMA Sulfa (Sulfonamide Antibiotics) [SULFA (SULFONAMIDE ANTIBIOTICS)] Allergy (Severe, Verified 10/25/22 10:57) FACIAL SWELLING iron [IRON] Allergy (Intermediate, Verified 10/25/22 10:57) NAUSEA lactose [LACTOSE] Allergy (Intermediate, Verified 10/25/22 10:57) DIARRHEA sertraline [From ZOLOFT] Allergy (Intermediate, Verified 10/25/22 10:57) INSOMNIA codeine Allergy (Unknown, Verified 10/25/22 10:57) Unknown lobster Allergy (Uncoded 10/08/22 08:35) Anaphylaxis [facility] Medical History (Updated 10/08/22 @ 08:48 by Dwight Nicole MD) Anemia Annual physical exam Binge-eating disorder, moderate BMI 25.0-25.9,adult COPD (chronic obstructive pulmonary disease) Degenerative disc disease, cervical Deviated septum Esophageal stricture GERD (gastroesophageal reflux disease) Hemorrhoids History of duodenal ulcer History of esophageal dilatation Hypercholesterolemia Hypertension Impaired glucose tolerance Nephrolithiasis Obesity (BMI 30-39.9) Obstructive sleep apnea Osteoarthritis of knees, bilateral Osteoarthritis of knees, bilateral Osteopenia Overweight Peptic ulcer disease Peripheral neuropathy Peripheral vascular disease Protein deficiency RSD (reflex sympathetic dystrophy) Small bowel obstruction Spondylosis of cervical spine Tubular adenoma of colon UTI (urinary tract infection) Ventral hernia Vitamin D deficiency Surgical History Cystocele History of arthroscopy of left knee History of cholecystectomy History of hemorrhoidectomy History of nasal surgery History of repair of hiatal hernia History of tonsillectomy History of tubal ligation History of umbilical hernia repair Hx of gastric bypass Family History Father No problems noted. Mother No problems noted. Social History Housing: Apartment Alcohol intake: former Patient Tobacco Use Status: Former Tobacco user Tobacco use type: Cigarette e-Cigarette/Vaping Use: Never Used Second Hand Smoke Exposure: No service: No Current occupational status: retired Gender identity: Female Cognitive needs: No Hearing needs: No Vision needs: Yes (glasses) Female Reproductive History Menstrual Age of Menarche: 10 Behavioral Health Assessment Weight Management Therapy Therapy Notes Details Patient talked about recent surgery. She stated that it went well but has recently gained weight. She is trying to keep busy as being alone and at home increased isolation and depression. She has her great granchildren today that are in her care until tomorrow. Assessment & Plan Assessment & Plan (1) Binge-eating disorder, moderate: Code(s): F50.81 - Binge eating disorder (2) Hx of gastric bypass: Comment: January 2019 Code(s): Z98.84 - Bariatric surgery status Plan Pt post-op gastric bypass and struggling with her diet. She presents with some binging and then dumping symptoms which has led to nutritional deficiencies evidenced by her lab work. We talked about past childhood experiences and trauma, connected them with her current rel. with food. ( often was hungry as a child and had to find ways to feed herself). Patient lives alone and has limited day structure which further exacerbates food consumption. We talked about the senior center in her town and the services they offer. She might be interested. Also could benefit from group therapy support. Telehealth Telehealth Location of provider rendering services: practice address Location of patient: address on file Patient Identification confirmed using: Name, : Yes Telehealth method: voice only Minutes spent on Phone/Video with Pt.: 40 Coding Level of Care Code Tele Psytx 45 mins ([id number]) Diagnoses Binge-eating disorder, moderate F50.81 Hx of gastric bypass Z98.84 Time Spent (min) 40
== END 2022-12-09 15:20 | disposition home or self-care (01) ==
LOC: HO.HBST 14:57
PROVIDERS: PCP Internal Medicine; Visit Provider Counselor Mental Health
DX: F50.81 Binge eating disorder (principal); Z98.84 Bariatric surgery status
CPT/HCPCS: 90834

== ENCOUNTER → 2022-12-09 14:57 | Outpatient (BNVA) | payer OTHER, SELFPAY | PROVIDERS: PCP Internal Medicine; Visit Provider Counselor Mental Health ==

== ENCOUNTER 2023-01-07 10:04 | Outpatient (AMB) | payer OTHER, SELFPAY ==
[2023-01-07 10:06] VITALS: BP 142/82; PULSE 71; O2SAT 97; BMI 26.6
--- NOTE | 2023-01-07 10:06 | A.OFFPC_ITS ---
Vital Signs 01/07/23 10:06 Height 5 ft 1 in Weight 141 lb BMI 26.6 BP 142/82 H Blood Pressure Location Lt brachial Position Sitting Pulse 71 Pulse Source Pulse Oximeter Pulse Oximetry (%) 97 Oxygen Delivery Method Room Air Intake Visit Reasons: Pain On Hands, Knee and Hips Allergies hydrochlorothiazide [HYDROCHLOROTHIAZIDE] Allergy (Severe, Verified 01/07/23 10:07) ANGIOEDEMA lisinopril [LISINOPRIL] Allergy (Severe, Verified 01/07/23 10:07) ANGIOEDEMA Sulfa (Sulfonamide Antibiotics) [SULFA (SULFONAMIDE ANTIBIOTICS)] Allergy (Severe, Verified 01/07/23 10:07) FACIAL SWELLING iron [IRON] Allergy (Intermediate, Verified 01/07/23 10:07) NAUSEA lactose [LACTOSE] Allergy (Intermediate, Verified 01/07/23 10:07) DIARRHEA sertraline [From ZOLOFT] Allergy (Intermediate, Verified 01/07/23 10:07) INSOMNIA codeine Allergy (Unknown, Verified 01/07/23 10:07) Unknown lobster Allergy (Uncoded 01/07/23 10:07) Anaphylaxis Tobacco use date assessed: 10/22/22 HPI HPI Comments History of Present Illness Details 72-year-old female with history of gastric bypass January 2019 COPD bilateral knee osteoarthritis hypertension hypercholesterolemia GERD vaginal prolapse with bladder prolapse RSD recurrent urinary tract infection with urinary incontinence.Patient of Dr. Nicole last seen in september pre-op appointment. Patient presents today for hx RA previously seen by rhematology and was on a weekly meditcaiton, however patient cannot remeber the name of the medication. Patient states having joint pain all over and joint stiffening in the morning especially in the hands and knees. 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 Patient reports has been taking Advil dual action with relief pain. [facility] Medical History Anemia Annual physical exam Binge-eating disorder, moderate BMI 25.0-25.9,adult COPD (chronic obstructive pulmonary disease) Degenerative disc disease, cervical Deviated septum Esophageal stricture GERD (gastroesophageal reflux disease) Hemorrhoids History of duodenal ulcer History of esophageal dilatation Hypercholesterolemia Hypertension Impaired glucose tolerance Nephrolithiasis Obesity (BMI 30-39.9) Obstructive sleep apnea Osteoarthritis of knees, bilateral Osteoarthritis of knees, bilateral Osteopenia Overweight Peptic ulcer disease Peripheral neuropathy Peripheral vascular disease Protein deficiency RSD (reflex sympathetic dystrophy) Small bowel obstruction Spondylosis of cervical spine Tubular adenoma of colon UTI (urinary tract infection) Ventral hernia Vitamin D deficiency Surgical History Cystocele History of arthroscopy of left knee History of cholecystectomy History of hemorrhoidectomy History of nasal surgery History of repair of hiatal hernia History of tonsillectomy History of tubal ligation History of umbilical hernia repair Hx of gastric bypass Family History Father No problems noted. Mother No problems noted. Social History Housing: Apartment Alcohol intake: former Patient Tobacco Use Status: Former Tobacco user Tobacco use type: Cigarette e-Cigarette/Vaping Use: Never Used Second Hand Smoke Exposure: No service: No Current occupational status: retired Gender identity: Female Cognitive needs: No Hearing needs: No Vision needs: Yes (glasses) Female Reproductive History Menstrual Age of Menarche: 10 Questionnaire PHQ-9 Over the last 2 weeks, how often have you been bothered by any of the following problems? 1. Little interest or pleasure in doing things: not at all 2. Feeling down, depressed, or hopeless: not at all 3. Trouble falling or staying asleep, or sleeping too much: not at all 4. Feeling tired or having little energy: not at all 5. Poor appetite or overeating: not at all 6. Feeling bad about yourself - or that you are a failure or have let yourself or your family down: not at all 7. Trouble concentrating on things, such as reading the newspaper or watching television: not at all 8. Moving or speaking so slowly that other people could have noticed. Or the opposite - being so fidgety or restless that you have been moving around a lot more than usual: not at all 9. Thoughts that you would be better off or of hurting yourself in some way: not at all Total score: 0 Depression Screening Interpretation: Negative Source: Developed by Drs. Jordan Elise, Sherri Loo, David Ross and colleagues, with an educational edna from [employer]. Thrive Questionnaire Date Thrive assessed: 10/22/22 I am a: Patient What is your living situation today?: I have a steady place to live Within the past 12 months, did the food you bought not last and you didn't have the money to get more?: Never true Within the past 12 months, did you worry whether your food would run out before you got money to buy more?: Never true Do you have trouble paying for medicines?: No Do you have trouble getting transportation to medical appointments?: Yes Do you have trouble paying your heating and electricity bill?: No Do you have trouble taking care of your child, family member or friend?: No Do you have trouble with day-to-day activities such as bathing, preparing meals, shopping, managing finances, etc.?: No Are you currently unemployed and looking for a job?: No Are you interested in more education?: No Please select the resources that you would like help with: Transportation Currently or been in a relationship where the following occur: no concerns reported AUDIT C Alcohol Use Questionnaire (AUDIT-C) 1. How often do you have a drink containing alcohol?: Never 3. How often do you have six or more drinks on one occasion?: Never Total Score: 0 JOSE ARMANDO-7 AMB Questionnaire JOSE ARMANDO-7 Date JOSE ARMANDO - 7 assessed: 10/22/22 Feeling nervous, anxious, or on edge: 0 = Not at all Not being able to stop or control worryin = Not at all Worrying too much about different things: 0 = Not at all Trouble relaxin = Not at all Being so restless that it is hard to sit still: 0 = Not at all Becoming easily annoyed or irritable: 0 = Not at all Feeling afraid as if something awful might happen: 0 = Not at all Total JOSE ARMANDO-7 score (0-4 normal; 5-9 mild; 10-14 moderate; 15-21 severe): 0 Source: Developed by Drs. Jordan Elise, Sherri Loo, David Ross and colleagues, with an educational edna from [employer]. Review of Systems Const Denies chills, Denies fatigue, Denies fever(s) and Denies poor appetite Eyes Denies no additional complaints ENT Reports Normal hearing present Card Denies chest pain, Denies syncope, Denies rapid heart rate and Denies dyspnea Resp Denies cough and Denies dyspnea GI Denies change in stool character, Denies constipation, Denies diarrhea, Denies nausea and Denies vomiting Denies urinary frequency, Denies dysuria and Denies urinary urgency Musc Reports arthralgias Neuro Reports Normal hearing present, Denies confusion and Denies syncope Psych Denies confusion Endo Denies fatigue Physical exam (Primary Care) Vital Signs: Last Vital Signs Pulse 71 01/07/23 10:06 BP 142/82 H 01/07/23 10:06 Pulse Ox 97 01/07/23 10:06 Oxygen Delivery Method Room Air 01/07/23 10:06 BMI result Body Mass Index 26.6 Tobacco/Smoking Status: Tobacco use Status Tobacco use date assessed 10/22/22 01/07/23 10:12 Patient Tobacco Use Status Former Tobacco user 01/07/23 10:12 Tobacco use type Cigarette 01/07/23 10:12 e-Cigarette/Vaping Use Never Used 01/07/23 10:12 PHQ-9: PHQ-9 Score PHQ-9: Total score 0 01/07/23 10:18 Depression Screening Interpretation: Negative Thrive Assessment: Date of Thrive Assessment Date Thrive assessed 10/22/22 01/07/23 10:12 Currently or been in a relationship where the following occur: no concerns reported Const General: No confusion Orientation/consciousness: No confusion HENMT Head: Yes normocephalic and Yes atraumatic Eyes Conjunctivae: conjunctivae normal Chest Chest palpation & inspection: normal inspection of the chest Resp Effort & Inspection: normal respiratory effort Auscultation: clear to auscultation bilaterally, no crackles, no rhonchi and no wheezes Cardio Rate: regular rate Rhythm: regular rhythm Heart sounds: S1 normal heart sound present and S2 normal heart sound present Peripheral pulses: dorsalis pedis present GI Inspection: Yes normal to inspection General: Yes no CVA tenderness Back/Spine/Pelvis Back: no CVA tenderness Neuro General: No confusion Cranial nerves: Yes Normal hearing present Extrem General: No edema Assessment and Plan Assessment & Plan (1) Rheumatoid arthritis: Code(s): M06.9 - Rheumatoid arthritis, unspecified Plan: CRP,ESR,RF and EROS ordered. Referral entered to reestablish care with rheumatology. (2) Hypertension: Comment: Stress test nuclear October 2012 normal Code(s): I10 - Essential (primary) hypertension Qualifiers: Hypertension type: essential hypertension Qualified Code(s): I10 - Essential (primary) hypertension Plan: Follow low salt diet and exercise. Blood pressure slightly above goal today at 142/82. (3) Hypercholesterolemia: Code(s): E78.00 - Pure hypercholesterolemia, unspecified Plan: Avoid fried foods, chicken skin, eggs, butter,margarine, pastries and? red meat. Plan Keep scheduled follow up with pcp or follow up sooner if needed. Orders: Orders Comprehensive [place]. Panel Fast Today M06.9 - Rheumatoid arthritis, unspecified C Reactive Protein Today M06.9 - Rheumatoid arthritis, unspecified Complete Blood Count Auto Diff Today Z13.0 - Encounter for screening for diseases of the blood and blood-forming organs and certain disorders involving the immune mechanism Erythrocyte Sedimentation Rate Today M06.9 - Rheumatoid arthritis, unspecified EROS Reflex Titer and Pattern Today M06.9 - Rheumatoid arthritis, unspecified Rheumatoid Factor Today M06.9 - Rheumatoid arthritis, unspecified Referrals Rheumatology Referral M06.9 - Rheumatoid arthritis, unspecified Coding Level of Care Code Est Pt Level 3 (95815) Diagnoses Rheumatoid arthritis M06.9 Hypertension I10 Hypertension type: essential hypertension Hypercholesterolemia E78.00
== END 2023-01-07 10:35 | disposition home or self-care (01) ==
PROVIDERS: PCP Internal Medicine; Visit Provider Nurse Practitioner Family
DX: M06.9 Rheumatoid arthritis, unspecified (principal); I10 Essential (primary) hypertension; E78.00 Pure hypercholesterolemia, unspecified
CPT/HCPCS: 99213

== ENCOUNTER 2023-01-13 06:04 | Outpatient (REF) | payer OTHER, SELFPAY ==
[2023-01-13 06:27] LABS: MANUAL DIFF FLAG NO
[2023-01-13 07:25] LABS: Basophils Percent Auto 0.2 % (0-2); Eosinophils Absolute Auto 0.2 X10*3/uL (0.0-0.4); Eosinophils Percent Auto 4.2 % (0-4); Hematocrit 37.5 % (37.0-47.0); Hemoglobin 12.1 g/dl (12.0-16.0); Lymphocytes Absolute Auto 1.4 X10*3/uL (1.2-4.9); Lymphocytes Percent Auto 34.9 % (20-40); Mean Corpuscular HGB Conc 32.3 g/dl (31.0-35.0); Mean Corpuscular Hemoglobin 29.7 pg (27.0-33.0); Mean Corpuscular Volume 91.9 fL (80.0-98.0); Mean Platelet Volume 10.5 fL (9.4-12.3); Monocytes Absolute Auto 0.4 X10*3/uL (0.1-1.2); Neutrophils Percent Auto 50.7 % (45-73); Platelet Count 179 X10*3/uL (160-400); Prothrombin Time 11.8 SEC (11.1-13.3); Red Blood Count 4.08 X10*6/uL (4.20-5.50); Red Cell Distribution Width 13.2 % (11.0-16.0)
[2023-01-13 07:27] LABS: Estimated Average Glucose 77 mg/dL; Hemoglobin A1c % 4.3 %
[2023-01-13 07:44] LABS: Alanine Aminotransferase 22 U/L (0-31); Albumin Level 4.1 g/dL (3.5-5.0); Alkaline Phosphatase 113 U/L (39-117); Anion Gap 12 (12-20); Aspartate Amino Transferase 25 U/L (5-31); Bilirubin Total 0.5 mg/dL (0.0-1.0); Blood Urea Nitrogen 19 mg/dL (9-16); Calcium 9.6 mg/dL (8.4-10.2); Carbon Dioxide 27 mmol/L (22-29); Chloride 108 mmol/L (96-108); Cholesterol 160 mg/dL; Estimated Glomerular Filt Rate > 60; Glucose Fasting 85 mg/dL (60-99); Glucose Random 85 mg/dL (60-115); HDL Cholesterol 41 mg/dL; Iron 64 mcg/dL (30-160); LDL Cholesterol Calculated 95 mg/dl; Percent Iron Saturation 20 % (15-50); Potassium 4.5 mmol/L (3.3-5.1); Sodium 142 mmol/L (135-145); Total Iron Binding Capacity 322 mcg/dL (228-428); Total Protein 6.8 g/dL (6.5-8.0); Triglycerides 121 mg/dL; Unsaturated Iron Binding 258 ug/dL
[2023-01-13 07:48] LABS: Rheumatoid Factor < 13.0 IU/mL (<15.0)
[2023-01-13 08:06] LABS: Ferritin 21 ng/mL (10-250); Insulin 5 uU/mL (2-29); Vitamin D 25-OH Total 21.7 ng/mL (>30)
[2023-01-13 08:18] LABS: Erythrocyte Sedimentation Rate 14 MM/HR (0-20)
[2023-01-13 08:19] LABS: Folate 17.4 ng/mL (> or = 4.0); Vitamin B12 933 pg/mL (200-900)
[2023-01-14 14:13] LABS: Calcium (PTHI) 9.5 mg/dL (8.6-10.4); PTHI 50 pg/mL (16-77)
[2023-01-16 12:54] LABS: Zinc 61 mcg/dL (60-130)
[2023-01-16 15:48] LABS: Anti Nuclear Antibody Screen NEGATIVE (NEGATIVE)
[2023-01-17 02:44] LABS: Vitamin A 41 mcg/dL (38-98)
[2023-01-18 14:29] LABS: Vitamin B1 37 nmol/L (8-30)
== END 2023-01-13 06:05 | disposition home or self-care (01) ==
LOC: HO.LAB 06:04
PROVIDERS: Physician Assistant Surgical; PCP Internal Medicine; Visit Provider Nurse Practitioner Family
DX: Z01.818 Encounter for other preprocedural examination (principal); Z13.29 Encounter for screening for other suspected endocrine disorder; M06.9 Rheumatoid arthritis, unspecified; Z98.84 Bariatric surgery status; D64.9 Anemia, unspecified
CPT/HCPCS: 36415; 80053; 80061; 82306; 82607; 82728; 82746; 83036; 83525; 83540; 83970; 84425; 84443; 84590; 84630; 85025; 85610; 85652; 86038; 86140; 86431

== ENCOUNTER 2023-01-21 11:58 | Outpatient (AMB) | payer OTHER, SELFPAY ==
--- NOTE | 2023-02-04 10:53 | A.OFFWM_ITS ---
Intake Intake Visit Reasons: (TV) PO LSG 02/10/19 Allergies hydrochlorothiazide [HYDROCHLOROTHIAZIDE] Allergy (Severe, Verified 01/07/23 10:07) ANGIOEDEMA lisinopril [LISINOPRIL] Allergy (Severe, Verified 01/07/23 10:07) ANGIOEDEMA Sulfa (Sulfonamide Antibiotics) [SULFA (SULFONAMIDE ANTIBIOTICS)] Allergy (Severe, Verified 01/07/23 10:07) FACIAL SWELLING iron [IRON] Allergy (Intermediate, Verified 01/07/23 10:07) NAUSEA lactose [LACTOSE] Allergy (Intermediate, Verified 01/07/23 10:07) DIARRHEA sertraline [From ZOLOFT] Allergy (Intermediate, Verified 01/07/23 10:07) INSOMNIA codeine Allergy (Unknown, Verified 01/07/23 10:07) Unknown lobster Allergy (Uncoded 01/07/23 10:07) Anaphylaxis [facility] Medical History Anemia Annual physical exam Binge-eating disorder, moderate BMI 25.0-25.9,adult COPD (chronic obstructive pulmonary disease) Degenerative disc disease, cervical Deviated septum Esophageal stricture GERD (gastroesophageal reflux disease) Hemorrhoids History of duodenal ulcer History of esophageal dilatation Hypercholesterolemia Hypertension Impaired glucose tolerance Nephrolithiasis Obesity (BMI 30-39.9) Obstructive sleep apnea Osteoarthritis of knees, bilateral Osteoarthritis of knees, bilateral Osteopenia Overweight Peptic ulcer disease Peripheral neuropathy Peripheral vascular disease Protein deficiency RSD (reflex sympathetic dystrophy) Small bowel obstruction Spondylosis of cervical spine Tubular adenoma of colon UTI (urinary tract infection) Ventral hernia Vitamin D deficiency Surgical History Cystocele History of arthroscopy of left knee History of cholecystectomy History of hemorrhoidectomy History of nasal surgery History of repair of hiatal hernia History of tonsillectomy History of tubal ligation History of umbilical hernia repair Hx of gastric bypass Family History Father No problems noted. Mother No problems noted. Social History Housing: Apartment Alcohol intake: former Patient Tobacco Use Status: Former Tobacco user Tobacco use type: Cigarette e-Cigarette/Vaping Use: Never Used Second Hand Smoke Exposure: No service: No Current occupational status: retired Gender identity: Female Cognitive needs: No Hearing needs: No Vision needs: Yes (glasses) Female Reproductive History Menstrual Age of Menarche: 10 Behavioral Health Assessment Weight Management Therapy Therapy Notes Details Patient reported struggling with getting enough food, high stress, helping her family cope and handle recent news of her grandson having leukemia. She has been helping her grandkids who are having to travel back and forth to [place], also another child to care for. We discussed the importance of caring for herself even more now so that she can be there for them. Assessment & Plan Assessment & Plan (1) Binge-eating disorder, moderate: Code(s): F50.81 - Binge eating disorder (2) Hx of gastric bypass: Comment: January 2019 Code(s): Z98.84 - Bariatric surgery status Plan Pt post-op gastric bypass and struggling with her diet. She presents with some binging and then dumping symptoms which has led to nutritional deficiencies evidenced by her lab work. We talked about past childhood experiences and trauma, connected them with her current rel. with food. ( often was hungry as a child and had to find ways to feed herself). Patient lives alone and has limited day structure which further exacerbates food consumption. We talked about the senior center in her town and the services they offer. She might be interested. Also could benefit from group therapy support. Medications: Discontinued levofloxacin Discontinued Reason: Doctor's Order 500 mg PO DAILY 10 days 10 tabs 0RF N39.0 - Urinary tract infection, site not specified Telehealth Telehealth Location of provider rendering services: other Location of patient: other Patient Identification confirmed using: Name, : Yes Telehealth method: voice only Patient verbally consented to treatment: Yes Patient verbally consented to billing insurance company: Yes Patient informed of any privacy concerns related to visit: Yes Minutes spent on Phone/Video with Pt.: 30 Coding Level of Care Code Tele Psytx 30 mins (32615) Diagnoses Binge-eating disorder, moderate F50.81 Hx of gastric bypass Z98.84 Time Spent (min) 30
== END 2023-02-04 10:52 | disposition home or self-care (01) ==
PROVIDERS: PCP Internal Medicine; Visit Provider Counselor Mental Health
DX: F50.81 Binge eating disorder (principal); Z98.84 Bariatric surgery status
CPT/HCPCS: 90832

== ENCOUNTER → 2023-01-21 11:58 | Outpatient (BNVA) | payer OTHER, SELFPAY | PROVIDERS: PCP Internal Medicine; Visit Provider Counselor Mental Health ==

== ENCOUNTER 2023-01-24 14:56 | Outpatient (REF) | payer OTHER, SELFPAY ==
[2023-01-24 16:44] LABS: Appearance Urine Cloudy; Color Urine Yellow; Glucose Urine UA Negative (Negative); Leukocyte Esterase Urine Large (3+) (Negative); Nitrite Urine Positive (Negative); PH 5.5 (5.0-9.0); Specific Gravity - Urine 1.015 (1.005-1.025); UMIC TRIGGER UA YES; Urine Blood Large (3+) (Negative); Urine Ketones Negative (Negative); Urine Protein 30 (1+) mg/dL (Neg-Trace)
[2023-01-24 17:27] LABS: Bacteria Urine 4+ (None Seen); Hyaline Casts Urine 0-2 /LPF (0-2); Squamous Epithelial Cell Urine 0-2 /HPF (0-2); WBC Urine >50 /HPF (0-5)
== END 2023-01-24 14:57 | disposition home or self-care (01) ==
LOC: HO.LAB 14:56
PROVIDERS: PCP Internal Medicine; Visit Provider Nurse Practitioner Family
DX: N39.0 Urinary tract infection, site not specified (principal)
CPT/HCPCS: 81001; 87086; 87088; 87186

== ENCOUNTER → 2023-01-30 08:54 | Outpatient (BNVA) | payer OTHER, SELFPAY | PROVIDERS: PCP Internal Medicine; Visit Provider Dietitian, Registered | DX: F50.81 Binge eating disorder (principal); E66.3 Overweight; Z98.84 Bariatric surgery status; Z71.3 Dietary counseling and surveillance | CPT/HCPCS: 97803 ==

== ENCOUNTER → 2023-02-10 10:36 | Outpatient (BNVA) | payer OTHER, SELFPAY | PROVIDERS: PCP Internal Medicine; Visit Provider Counselor Mental Health ==

== ENCOUNTER 2023-02-19 09:35 | Outpatient (AMB) | payer OTHER, SELFPAY ==
--- NOTE | 2023-02-19 09:40 | A.OFFVIS_ITS ---
Intake Intake Visit Reasons: 6m follow up Intake Note: Patient is present for follow up recurrent uti Urology Medications: estradiol, myrbetriq Blood Thinner: none PVR: 0ml's Monitoring And Evaluation Advisor Required: No Accompanied by: Self / Same As Patient Allergies hydrochlorothiazide [HYDROCHLOROTHIAZIDE] Allergy (Severe, Verified 02/19/23 10:12) ANGIOEDEMA lisinopril [LISINOPRIL] Allergy (Severe, Verified 02/19/23 10:12) ANGIOEDEMA Sulfa (Sulfonamide Antibiotics) [SULFA (SULFONAMIDE ANTIBIOTICS)] Allergy (Severe, Verified 02/19/23 10:12) FACIAL SWELLING iron [IRON] Allergy (Intermediate, Verified 02/19/23 10:12) NAUSEA lactose [LACTOSE] Allergy (Intermediate, Verified 02/19/23 10:12) DIARRHEA sertraline [From ZOLOFT] Allergy (Intermediate, Verified 02/19/23 10:12) INSOMNIA codeine Allergy (Unknown, Verified 02/19/23 10:12) Unknown lobster Allergy (Uncoded 02/19/23 10:12) Anaphylaxis Medication List - Last Reconciled 02/19/23 by BECCA Garcia calcium citrate-vitamin D3 315 mg-6.25 mcg (250 unit) 1 tab PO DAILY cetirizine 10 mg PO DAILY PRN cholecalciferol (vitamin D3) (Vitamin D3) 50 mcg PO DAILY diclofenac sodium 1% 4 grams topical QID PRN 90 days dicyclomine 10 mg PO TID estradiol 0.01%(0.1mg/gram) vaginally daily; pea sized amount to urethra 30 days ipratropium bromide 1 spray intranasal TID PRN ketoconazole 2% appl topical BID mirabegron ER (Myrbetriq) 50 mg PO DAILY 90 days [id number] K 45 mg iron- 800 mcg-120 mcg (Bariatric Multivitamins) 1 cap PO DAILY pregabalin (Lyrica) 50 mg PO BID tizanidine 4 mg PO Q8H PRN trazodone 50 mg PO BEDTIME PRN HPI HPI Comments History of Present Illness Details María is a very pleasant [address] Nicole. She has a past medical history of binge eating disorder, osteoarthritis, overweight, degenerative disc disease, obesity, peptic ulcer disease, esophageal stricture, vitamin-D deficiency, peripheral neuropathy, GERD, hypercholesteremia, peripheral vascular disease, OMID, hemorrhoids, and COPD. She presents to the office today for a follow up of her recurrent urinary tract infections.? When asked patient reports to be doing and feeling well. She discusses her great grandson who has recently been diagnosed with leukemia and is currently at [facility]. Since her last office visit here she has had 1 urinary tract infection approximately 2 weeks ago and just completed antibiotic therapy this past Friday 02/16. Unable to obtain urine for urinalysis however PVR 0 mL. Patient currently denies any UTI like symptoms. Discussed and stressed the importance of drinking plenty of water daily. However patient endorses not liking to drink water. She discusses only drinking one Propel water daily. She reports compliance with Myrbetriq 50 mg daily. When asked she reports to be utilizing Estrace cream when she remembers doing so. Previous workup has included retroperitoneal ultrasound noting nonobstructive echogenic stone lower pole right kidney. Left kidney is unremarkable. She has a past medical history of mesh being inserted with as well as InterStim however InterStim was removed related to infection. She reports having a cystocele and rectocele repair with Dr. Ayers in the past. Patient also reports having performed pelvic therapy in the past as well. She denies constipation however reports longstanding history of diarrhea. Discussed at length importance of hydration and compliance with medications as prescribed. Discussed at length potential causes for recurrent urinary tract infections. She otherwise offers no issues or concerns at this time. [facility] Medical History (Reviewed 02/19/23 @ 12:16 by JASBIR GarciaWASHINGTON [facility]) Nephrolithiasis UTI (urinary tract infection) Annual physical exam Protein deficiency Ventral hernia Binge-eating disorder, moderate Osteoarthritis of knees, bilateral Overweight BMI 25.0-25.9,adult Degenerative disc disease, cervical Spondylosis of cervical spine Obesity (BMI 30-39.9) Peptic ulcer disease Esophageal stricture Vitamin D deficiency Peripheral neuropathy GERD (gastroesophageal reflux disease) Hypercholesterolemia RSD (reflex sympathetic dystrophy) Peripheral vascular disease Anemia Small bowel obstruction Osteopenia History of esophageal dilatation Tubular adenoma of colon Obstructive sleep apnea Hypertension Hemorrhoids Deviated septum Impaired glucose tolerance History of duodenal ulcer Osteoarthritis of knees, bilateral COPD (chronic obstructive pulmonary disease) Surgical History Cystocele History of repair of hiatal hernia Hx of gastric bypass History of arthroscopy of left knee History of umbilical hernia repair History of tubal ligation History of hemorrhoidectomy History of nasal surgery History of tonsillectomy History of cholecystectomy Family History Father No problems noted. Mother No problems noted. Social History Housing: Apartment Alcohol intake: former Patient Tobacco Use Status: Former Tobacco user Tobacco use type: Cigarette e-Cigarette/Vaping Use: Never Used Second Hand Smoke Exposure: No service: No Current occupational status: retired Gender identity: Female Cognitive needs: No Hearing needs: No Vision needs: Yes (glasses) Female Reproductive History Menstrual Age of Menarche: 10 Review of Systems Const Reports as per HPI Eyes Reports no additional complaints ENT Reports no additional complaints Card Reports as per HPI Resp Reports as per HPI GI Reports as per HPI Reports as per HPI Musc Reports as per HPI Psych Reports as per HPI Endo Reports no additional complaints Gold/Lymph Reports no additional complaints Aller/Immun Reports no additional complaints Physical Exam Const General: cooperative, healthy appearing, comfortable, no acute distress, well developed, alert and awake Orientation/consciousness: patient oriented x3 Limitations: no limitations HEENT Head: Yes normal to inspection, Yes normocephalic and Yes atraumatic Eyes General: appearance normal, both eyes and all related structures Neck Neck: Yes normal visual inspection and Yes trachea midline Chest Chest palpation & inspection: normal inspection of the chest Cardio Rate: regular rate GI Other: patient reports seroma to abdominal area. General: Yes no CVA tenderness Back/Spine/Pelvis Back: no CVA tenderness Neuro General: patient oriented x3 Extrem General: Yes normal to inspection Psych Appearance: grossly normal and well kempt Mental Status: mental status grossly normal Speech and movement: Normal speech and movement present Affect: normal affect Attitude: cooperative Thought process: Normal thought process present Thought content: Normal thought content present Insight: Fair insight present (Psych) Judgement: Fair judgement present (Psych) Assessment & Plan Assessment & Plan (1) Recurrent urinary tract infection: Code(s): N39.0 - Urinary tract infection, site not specified (2) Urinary incontinence: Code(s): R32 - Unspecified urinary incontinence Plan Unable to obtain urine for urinalysis however, PVR 0 mL. Start methenamine and vitamin-C as discussed and prescribed. Continue with Estrace cream as discussed and prescribed. Discussed and stressed the importance of drinking plenty of water daily. Patient currently denies any UTI like symptoms. Discussed UTI prevention with D mannose supplement, vitamin-C, increasing fluid intake, behavioral therapy with timed voiding, perineal hygiene and postcoital voiding. Follow-up in 3 months with PVR; or sooner with any issues, concerns, or questions. Orders: Orders AMB Urinalysis Automated Today Z13.9 - Encounter for screening, unspecified AMB Post Void Residual by ultrasound Today N39.0 - Urinary tract infection, site not specified Medications: New ascorbic acid (vitamin C) 1 g PO DAILY 90 days 90 tabs 1RF N39.0 - Urinary tract infection, site not specified methenamine hippurate 1 g PO DAILY 90 days 90 tabs 1RF N39.0 - Urinary tract infection, site not specified Patient Instructions: The patient had an opportunity to ask questions regarding the treatment plan. All questions were answered. Physical exam, labs, and imaging were discussed and reviewed in detail. As well as risks, benefits, and discussion of treatment choices. No major barriers to understanding were identified. The patient expressed understanding and agreement with the above treatment plan. The patient was made aware they should contact our office by phone for worsening of their current condition, the appearance of new symptoms, or with any questions or concerns. Compliance is encouraged with any medications and follow up testing that is ordered. It is a privilege to be allowed the opportunity to participate in? your urological care.? Again, if you have any questions or concerns If you have any questions or concerns please do not hesitate to contact me. The office is [phone]. This note is constructed using voice recognition software. While every effort has been made to ensure accuracy director of collections errors may have been included. Yours sincerely, BECCA Garcia Coding Level of Care Code Est Pt Level 4 (47669) Diagnoses Recurrent urinary tract infection N39.0 Urinary incontinence R32
== END 2023-02-19 10:28 | disposition home or self-care (01) ==
PROVIDERS: PCP Internal Medicine; Visit Provider Nurse Practitioner Family
DX: N39.0 Urinary tract infection, site not specified (principal); R32 Unspecified urinary incontinence
CPT/HCPCS: 99214

== ENCOUNTER → 2023-02-19 09:35 | Outpatient (BNVA) | payer OTHER, SELFPAY | PROVIDERS: Visit Provider Nurse Practitioner Family | DX: R39.0 Extravasation of urine (principal); R32 Unspecified urinary incontinence | CPT/HCPCS: 99212 ==

== ENCOUNTER 2023-03-04 10:39 | Outpatient (AMB) | payer OTHER, SELFPAY ==
--- NOTE | 2023-03-04 10:41 | MHC.OFFVISWM ---
Intake VS Expanded 03/04/23 10:48 BP 171/77 H Blood Pressure Location Rt brachial Blood Pressure Position Sitting Pulse 58 Pulse Source Pulse Oximeter Temp 97.7 F Temperature Source Temporal Artery Scan Pulse Oximetry 97 Oxygen Delivery Method Room Air Height 5 ft 1 in Weight 137 lb 6.4 oz BMI 26.0 Body Fat % 24.7 Body Fat Mass 34.0 Fat Free Mass 103.4 Visceral Fat Rating 8.0 Body Water % 52.8 Body Water Mass 72.6 Muscle Mass/Score 98.2 Basal Metabolic Rate/Score 1,355 Intake Visit Reasons: (OV) PO GBP 02/10/19 Allergies hydrochlorothiazide [HYDROCHLOROTHIAZIDE] Allergy (Severe, Verified 03/04/23 10:46) ANGIOEDEMA lisinopril [LISINOPRIL] Allergy (Severe, Verified 03/04/23 10:46) ANGIOEDEMA Sulfa (Sulfonamide Antibiotics) [SULFA (SULFONAMIDE ANTIBIOTICS)] Allergy (Severe, Verified 03/04/23 10:46) FACIAL SWELLING iron [IRON] Allergy (Intermediate, Verified 03/04/23 10:46) NAUSEA lactose [LACTOSE] Allergy (Intermediate, Verified 03/04/23 10:46) DIARRHEA sertraline [From ZOLOFT] Allergy (Intermediate, Verified 03/04/23 10:46) INSOMNIA codeine Allergy (Unknown, Verified 03/04/23 10:46) Unknown lobster Allergy (Uncoded 03/04/23 10:46) Anaphylaxis Medication List - Last Reconciled 03/04/23 by ELLEN Araujo ascorbic acid (vitamin C) 1 g PO DAILY 90 days calcium citrate-vitamin D3 315 mg-6.25 mcg (250 unit) 1 tab PO DAILY cetirizine 10 mg PO DAILY PRN cholecalciferol (vitamin D3) (Vitamin D3) 50 mcg PO DAILY diclofenac sodium 1% 4 grams topical QID PRN 90 days dicyclomine 10 mg PO TID estradiol 0.01%(0.1mg/gram) vaginally daily; pea sized amount to urethra 30 days ipratropium bromide 1 spray intranasal TID PRN ketoconazole 2% appl topical BID methenamine hippurate 1 g PO DAILY 90 days mirabegron ER (Myrbetriq) 50 mg PO DAILY 90 days rzygymausznf-znb-ukkl-FA-vit K 45 mg iron- 800 mcg-120 mcg (Bariatric Multivitamins) 1 cap PO DAILY pregabalin (Lyrica) 50 mg PO BID tizanidine 4 mg PO Q8H PRN trazodone 50 mg PO BEDTIME PRN HPI HPI Comments History of Present Illness Details Pt is 4 years s/p RYGB. States I'm giving up meat. Trying to incorporate more high protein vegetarian options. Making smoothies one shake per day with Isopure unflavored, frozen fruit, Fairlife milk and puts in the freezer. Still thinks she is low in protein. Went to the [email or web address] 5x/this year but tried to be very reasonable with portions and choices. Her 4 year old great grandson continues to be treated for leukemia but is home now after 2 months in the hospital. Taking [employer] MVI. Exercise routine: walking HTN: resolved HLD: resolved DM: was pre-diabetic, now resolved OMID: off CPAP GERD: never PFSH Medical History Nephrolithiasis UTI (urinary tract infection) Annual physical exam Protein deficiency Ventral hernia Binge-eating disorder, moderate Osteoarthritis of knees, bilateral Overweight BMI 25.0-25.9,adult Degenerative disc disease, cervical Spondylosis of cervical spine Obesity (BMI 30-39.9) Peptic ulcer disease Esophageal stricture Vitamin D deficiency Peripheral neuropathy GERD (gastroesophageal reflux disease) Hypercholesterolemia RSD (reflex sympathetic dystrophy) Peripheral vascular disease Anemia Small bowel obstruction Osteopenia History of esophageal dilatation Tubular adenoma of colon Obstructive sleep apnea Hypertension Hemorrhoids Deviated septum Impaired glucose tolerance History of duodenal ulcer Osteoarthritis of knees, bilateral COPD (chronic obstructive pulmonary disease) Surgical History Cystocele History of repair of hiatal hernia Hx of gastric bypass History of arthroscopy of left knee History of umbilical hernia repair History of tubal ligation History of hemorrhoidectomy History of nasal surgery History of tonsillectomy History of cholecystectomy Family History Father No problems noted. Mother No problems noted. Social History Housing: Apartment Alcohol intake: former Patient Tobacco Use Status: Former Tobacco user Tobacco use type: Cigarette e-Cigarette/Vaping Use: Never Used Second Hand Smoke Exposure: No service: No Current occupational status: retired Gender identity: Female Cognitive needs: No Hearing needs: No Vision needs: Yes (glasses) Female Reproductive History Menstrual Age of Menarche: 10 Physical Exam Vital Signs: Last Vital Signs Temp 97.7 F 03/04/23 10:48 Pulse 58 03/04/23 10:48 BP 171/77 H 03/04/23 10:48 Pulse Ox 97 03/04/23 10:48 Oxygen Delivery Method Room Air 03/04/23 10:48 BMI result Body Mass Index 26.0 Const General: cooperative, comfortable and no acute distress Orientation/consciousness: patient oriented x3 GI Other: soft, incisions well healed, seroma present at midline, appears stable in size, mild tenderness but no overlying skin changes or open areas Neuro General: patient oriented x3 Assessment & Plan Assessment & Plan (1) Hx of gastric bypass: Comment: January 2019 Code(s): Z98.84 - Bariatric surgery status (2) Intestinal malabsorption following gastrectomy: Code(s): K91.2 - Postsurgical malabsorption, not elsewhere classified; Z90.3 - Acquired absence of stomach [part of] (3) Seroma of digestive system after non-digestive system procedure: Code(s): K91.873 - Postprocedural seroma of a digestive system organ or structure following other procedure Plan Labs reviewed; low vit D, supplemented. Total protein improved. Abdominal seroma appears stable. Pt will continue to try to increase protein intake. She will discuss possible digestive enzyme supplements with PCP. Has previously scheduled appt with Kenia in 2 weeks. Patient is overweight and is not considered stable at this time. I spent a total of 30 minutes reviewing/updating records, examining the patient and counseling the patient on weight management as detailed above. Coding Level of Care Code Est Pt Level 4 (69258) Diagnoses Hx of gastric bypass Z98.84 Intestinal malabsorption following gastrectomy K91.2; Z90.3 Seroma of digestive system after non-digestive system procedure K91.873
[2023-03-04 10:48] VITALS: BP 171/77; PULSE 58; TEMP 36.5; O2SAT 97; BMI 26.0
== END 2023-03-04 11:28 | disposition home or self-care (01) ==
PROVIDERS: PCP Internal Medicine; Visit Provider Physician Assistant Surgical
DX: K91.2 Postsurgical malabsorption, not elsewhere classified (principal); Z90.3 Acquired absence of stomach [part of]; K91.873 Postprocedural seroma of a digestive system organ or structure following other procedure; Z98.84 Bariatric surgery status
CPT/HCPCS: 99214

== ENCOUNTER → 2023-03-04 10:39 | Outpatient (BNVA) | payer OTHER, SELFPAY | PROVIDERS: PCP Internal Medicine; Visit Provider Physician Assistant Surgical | DX: K91.873 Postprocedural seroma of a digestive system organ or structure following other procedure (principal); K91.2 Postsurgical malabsorption, not elsewhere classified; Z98.84 Bariatric surgery status; Z90.3 Acquired absence of stomach [part of] | CPT/HCPCS: 99212 ==

== ENCOUNTER 2023-03-10 08:55 | Outpatient (AMB) | payer OTHER, SELFPAY ==
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
== END 2023-03-10 10:36 | disposition home or self-care (01) ==
PROVIDERS: PCP Internal Medicine; Visit Provider Counselor Mental Health
DX: F50.81 Binge eating disorder (principal); Z98.84 Bariatric surgery status
CPT/HCPCS: 90834

== ENCOUNTER → 2023-03-10 08:55 | Outpatient (BNVA) | payer OTHER, SELFPAY | PROVIDERS: PCP Internal Medicine; Visit Provider Counselor Mental Health ==

== ENCOUNTER 2023-03-18 11:30 | Outpatient (AMB) | payer OTHER, SELFPAY ==
[2023-03-18 11:36] VITALS: BP 140/78; PULSE 76; TEMP 36.8; O2SAT 96; BMI 26.2
--- NOTE | 2023-03-18 11:36 | AM.OFFWIN_ITS ---
Intake Vital Signs 03/18/23 11:36 Height 5 ft 1 in Weight 138 lb 8 oz BMI 26.2 BP 140/78 H Blood Pressure Location Lt brachial Position Sitting Pulse 76 Pulse Source Pulse Oximeter Temp 98.2 F Temp Source Temporal Artery Scan Pulse Oximetry (%) 96 Oxygen Delivery Method Room Air Intake Visit Reasons: EP, left foot pain Intake Note: pt is here for c/o left foot pain, on top of foot. denies injury/fall Patient Tobacco Use Status: Former Tobacco user Allergies hydrochlorothiazide [HYDROCHLOROTHIAZIDE] Allergy (Severe, Verified 03/19/23 06:07) ANGIOEDEMA lisinopril [LISINOPRIL] Allergy (Severe, Verified 03/19/23 06:07) ANGIOEDEMA Sulfa (Sulfonamide Antibiotics) [SULFA (SULFONAMIDE ANTIBIOTICS)] Allergy (Severe, Verified 03/19/23 06:07) FACIAL SWELLING iron [IRON] Allergy (Intermediate, Verified 03/19/23 06:07) NAUSEA lactose [LACTOSE] Allergy (Intermediate, Verified 03/19/23 06:07) DIARRHEA sertraline [From ZOLOFT] Allergy (Intermediate, Verified 03/19/23 06:07) INSOMNIA codeine Allergy (Unknown, Verified 03/19/23 06:07) Unknown lobster Allergy (Uncoded 03/19/23 06:07) Anaphylaxis Medication List - Last Reconciled 03/19/23 by Car Lazar MD ascorbic acid (vitamin C) 1 g PO DAILY 90 days calcium citrate-vitamin D3 315 mg-6.25 mcg (250 unit) 1 tab PO DAILY cetirizine 10 mg PO DAILY PRN cholecalciferol (vitamin D3) (Vitamin D3) 50 mcg PO DAILY diclofenac sodium 1% 4 grams topical QID PRN 90 days estradiol 0.01%(0.1mg/gram) vaginally daily; pea sized amount to urethra 30 days ipratropium bromide 1 spray intranasal TID PRN ketoconazole 2% appl topical BID methenamine hippurate 1 g PO DAILY 90 days mirabegron ER (Myrbetriq) 50 mg PO DAILY 90 days risbajncmbqp-jcd-wfuk-FA-vit K 45 mg iron- 800 mcg-120 mcg (Bariatric Multivitamins) 1 cap PO DAILY nitrofurantoin macrocrystal 100 mg PO BID 7 days phenazopyridine 100 mg PO q8h 6 days pregabalin (Lyrica) 50 mg PO BID tizanidine 4 mg PO Q8H PRN trazodone 50 mg PO BEDTIME PRN Do you need a note to return to daycare/school/sports/work: Yes HPI EP, left foot pain HPI Details 72-year-old female presents to the [facility] for a sick visit. Patient has been complaining of foot pain for the past 3-4 days. Does not recall any fall or injury prior to the onset of symptoms. Pain is located to the left ankle and left foot. Able to walk. Patient has been using a cane prior to the onset of symptoms due to her advanced arthritis in the knee. [facility] Medical History Nephrolithiasis UTI (urinary tract infection) Annual physical exam Protein deficiency Ventral hernia Binge-eating disorder, moderate Osteoarthritis of knees, bilateral Overweight BMI 25.0-25.9,adult Degenerative disc disease, cervical Spondylosis of cervical spine Obesity (BMI 30-39.9) Peptic ulcer disease Esophageal stricture Vitamin D deficiency Peripheral neuropathy GERD (gastroesophageal reflux disease) Hypercholesterolemia RSD (reflex sympathetic dystrophy) Peripheral vascular disease Anemia Small bowel obstruction Osteopenia History of esophageal dilatation Tubular adenoma of colon Obstructive sleep apnea Hypertension Hemorrhoids Deviated septum Impaired glucose tolerance History of duodenal ulcer Osteoarthritis of knees, bilateral COPD (chronic obstructive pulmonary disease) Surgical History Cystocele History of repair of hiatal hernia Hx of gastric bypass History of arthroscopy of left knee History of umbilical hernia repair History of tubal ligation History of hemorrhoidectomy History of nasal surgery History of tonsillectomy History of cholecystectomy Family History Father No problems noted. Mother No problems noted. Social History Housing: Apartment Alcohol intake: former Patient Tobacco Use Status: Former Tobacco user Tobacco use type: Cigarette e-Cigarette/Vaping Use: Never Used Second Hand Smoke Exposure: No service: No Current occupational status: retired Gender identity: Female Cognitive needs: No Hearing needs: No Vision needs: Yes (glasses) Female Reproductive History Menstrual Age of Menarche: 10 Physical Exam Vital Signs: Last Vital Signs Temp 98.2 F 03/18/23 11:36 Pulse 76 03/18/23 11:36 BP 140/78 H 03/18/23 11:36 Pulse Ox 96 03/18/23 11:36 Oxygen Delivery Method Room Air 03/18/23 11:36 BMI result Body Mass Index 26.2 Extrem Other: Left foot: Tenderness below the lateral malleolus. Tenderness along the lateral margin of the foot and over the dorsal margin of the foot. No visible bruising. Gait: Patient experiences pain on bearing weight on the left leg. Assessment & Plan Assessment & Plan (1) Foot pain, left: Code(s): M79.672 - Pain in left foot Plan: X-ray images of the foot were personally reviewed by me. DJD changes seen but no trauma or fracture. Patient was advised to keep the leg elevated and anti- inflammatories were called in. Orders: Orders XR ankle LT min 3V 03/18/23 S93.402A - Sprain of unspecified ligament of left ankle, initial encounter XR foot LT 2V 03/18/23 M79.672 - Pain in left foot Coding Level of Care Code Est Pt Level 4 (28543) Diagnoses Foot pain, left M79.672
== END 2023-03-18 14:00 | disposition home or self-care (01) ==
PROVIDERS: PCP Internal Medicine; Visit Provider Internal Medicine
DX: M79.672 Pain in left foot (principal)
CPT/HCPCS: 99214

== ENCOUNTER 2023-03-18 11:50 | Outpatient (REF) | payer OTHER, SELFPAY ==
--- NOTE | ~2023-03-18 | XR_ITS ---
EXAMINATION: Left foot and left ankle. CLINICAL HISTORY: Pain, Sprain of ligament.. COMPARISON: None. TECHNIQUE: 3 views left foot and 2 views left ankle FINDINGS: LEFT ANKLE: The ankle mortise and subtalar joints are normal. No visible acute fracture, dislocation or subluxation seen. There is a small calcaneal heel enthesophyte. There is mild osteopenia. Minimal lateral malleolar soft tissue swelling. LEFT FOOT: There is mild osteopenia. No visible acute fracture or dislocation seen. The visualized bones and joint spaces are maintained normal. XR/XR ankle LT min 3V IMPRESSION: No visible acute fracture or dislocation left foot or left ankle. Minimal lateral malleolar soft tissue swelling. Diffuse osteopenia. Small calcaneal heel enthesophyte.
--- NOTE | ~2023-03-18 | XR_ITS ---
EXAMINATION: Left foot and left ankle. CLINICAL HISTORY: Pain, Sprain of ligament.. COMPARISON: None. TECHNIQUE: 3 views left foot and 2 views left ankle FINDINGS: LEFT ANKLE: The ankle mortise and subtalar joints are normal. No visible acute fracture, dislocation or subluxation seen. There is a small calcaneal heel enthesophyte. There is mild osteopenia. Minimal lateral malleolar soft tissue swelling. LEFT FOOT: There is mild osteopenia. No visible acute fracture or dislocation seen. The visualized bones and joint spaces are maintained normal. XR/XR foot LT 2V IMPRESSION: No visible acute fracture or dislocation left foot or left ankle. Minimal lateral malleolar soft tissue swelling. Diffuse osteopenia. Small calcaneal heel enthesophyte.
== END 2023-03-18 11:51 | disposition home or self-care (01) ==
LOC: HO.HMGCX 11:50
PROVIDERS: PCP Internal Medicine; Visit Provider Internal Medicine
DX: M79.672 Pain in left foot (principal); S93.402A Sprain of unspecified ligament of left ankle, initial encounter; X58.XXXA Exposure to other specified factors, initial encounter; Y93.9 Activity, unspecified; Y92.9 Unspecified place or not applicable; Y99.9 Unspecified external cause status
CPT/HCPCS: 73610; 73620

== ENCOUNTER → 2023-03-19 08:48 | Outpatient (BNVA) | payer OTHER, SELFPAY | PROVIDERS: PCP Internal Medicine; Visit Provider Dietitian, Registered | DX: E46 Unspecified protein-calorie malnutrition (principal); Z91.119 Patient's noncompliance with dietary regimen due to unspecified reason; Z98.84 Bariatric surgery status | CPT/HCPCS: 97803 ==

== ENCOUNTER 2023-03-23 15:08 | Emergency (ER) | payer OTHER, SELFPAY | END 2023-03-23 16:17 | disposition left against medical advice (07) | PROVIDERS: Emergency Provider Emergency Medicine; PCP Internal Medicine | DX: R30.0 Dysuria (principal) ==

== ENCOUNTER → 2023-03-24 13:08 | Outpatient (BNVA) | payer OTHER, SELFPAY | PROVIDERS: PCP Internal Medicine; Visit Provider Urology ==

== ENCOUNTER 2023-04-04 10:34 | Outpatient (REF) | payer OTHER, SELFPAY ==
[2023-04-04 11:58] LABS: MANUAL DIFF FLAG NO
[2023-04-04 12:04] LABS: Eosinophils Absolute Auto 0.1 X10*3/uL (0.0-0.4); Eosinophils Percent Auto 2.7 % (0-4); Hematocrit 35.8 % (37.0-47.0); Hemoglobin 11.6 g/dl (12.0-16.0); Lymphocytes Percent Auto 27.6 % (20-40); Mean Corpuscular HGB Conc 32.4 g/dl (31.0-35.0); Mean Corpuscular Hemoglobin 30.4 pg (27.0-33.0); Mean Platelet Volume 10.5 fL (9.4-12.3); Monocytes Absolute Auto 0.4 X10*3/uL (0.1-1.2); Monocytes Percent Auto 10.6 % (2-11); Neutrophils Absolute Auto 2.2 x10*3/uL (2.0-8.3); Neutrophils Percent Auto 59.1 % (45-73); Platelet Count 163 X10*3/uL (160-400); Red Blood Count 3.81 X10*6/uL (4.20-5.50); Red Cell Distribution Width 13.9 % (11.0-16.0); White Blood Count 3.8 X10*3/uL (4.8-10.8)
[2023-04-04 12:54] LABS: Erythrocyte Sedimentation Rate 12 MM/HR (0-20)
[2023-04-04 13:13] LABS: Alanine Aminotransferase 22 U/L (0-31); Albumin Level 4.2 g/dL (3.5-5.0); Alkaline Phosphatase 135 U/L (39-117); Anion Gap 9 (12-20); Aspartate Amino Transferase 24 U/L (5-31); Bilirubin Total 0.3 mg/dL (0.0-1.0); Blood Urea Nitrogen 17 mg/dL (9-16); C Reactive Protein 0.55 mg/dL (< or = 0.50); Calcium 8.8 mg/dL (8.4-10.2); Carbon Dioxide 27 mmol/L (22-29); Chloride 108 mmol/L (96-108); Estimated Glomerular Filt Rate > 60; Glucose Random 110 mg/dL (60-115); Potassium 4.3 mmol/L (3.3-5.1); Sodium 140 mmol/L (135-145); Total Protein 6.7 g/dL (6.5-8.0)
[2023-04-05 04:20] LABS: HBc Num1 0.12 S/CO (0.00-0.79); HBsAGNum1 0.28 S/CO (0.00-0.99); Hepatitis A Antibody IgM 0.24 Index (0-0.79); Hepatitis B Core Antibody Nonreactive (Nonreactive); Hepatitis B Surface Antigen Negative (Negative); ~HepC Num1 0.03 S/CO (0.00-0.79); ~Hepatitis A Antibody IgM Nonreactive (Nonreactive); ~Hepatitis B Surface Antibody NONREACTIVE (Nonreactive); ~Hepatitis C Antibody Nonreactive (Nonreactive)
[2023-04-07 12:08] LABS: TS Negative Control Passed; TS Panel A 0; TS Panel B 1; TS Positive Control Passed; TSpotTB Negative (Negative)
[2023-04-09 11:44] LABS: IgA 215 mg/dL (70-320); IgG 833 mg/dL (600-1540); IgM 35 mg/dL (50-300)
[2023-04-09 17:38] LABS: Prot Elec - Albumin 4.2 g/dL (3.8-4.8); Prot Elec - Alpha1 0.3 g/dL (0.2-0.3); Prot Elec - Alpha2 0.5 g/dL (0.5-0.9); Prot Elec - Beta 1 0.4 g/dL (0.4-0.6); Prot Elec - Beta 2 0.3 g/dL (0.2-0.5); Prot Elec - Gamma 0.7 g/dL (0.8-1.7); Prot Elec - Total Protein 6.4 g/dL (6.1-8.1)
== END 2023-04-04 10:35 | disposition home or self-care (01) ==
LOC: HO.LAB 10:34
PROVIDERS: PCP Internal Medicine; Visit Provider Student in an Organized Health Care Education/Training Program
DX: M06.09 Rheumatoid arthritis without rheumatoid factor, multiple sites (principal); M17.0 Bilateral primary osteoarthritis of knee; M81.0 Age-related osteoporosis without current pathological fracture; Z79.631 Long term (current) use of antimetabolite agent; Z79.899 Other long term (current) drug therapy; Z11.7 Encounter for testing for latent tuberculosis infection; Z11.59 Encounter for screening for other viral diseases; Z72.89 Other problems related to lifestyle
CPT/HCPCS: 36415; 80053; 82784; 84165; 85025; 85652; 86140; 86334; 86481; 86704; 86706; 86709; 86803; 87340; 99202

== ENCOUNTER 2023-04-04 10:34 | Outpatient (AMB) | payer OTHER, SELFPAY ==
--- NOTE | 2023-04-04 10:39 | A.OFFVIS_ITS ---
Intake Vital Signs 04/04/23 10:40 Height 5 ft 1 in Weight 138 lb 0.15 oz BMI 26.1 BP 116/72 Blood Pressure Location Rt brachial Position Sitting Pulse 66 Pulse Source Pulse Oximeter Temp 98.2 F Temp Source Skin Pulse Oximetry (%) 95 Intake Visit Reasons: RA Intake Note: New pt presents today for RA consult. 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 Required: No Accompanied by: Self / Same As Patient Allergies hydrochlorothiazide [HYDROCHLOROTHIAZIDE] Allergy (Severe, Verified 04/04/23 10:43) ANGIOEDEMA lisinopril [LISINOPRIL] Allergy (Severe, Verified 04/04/23 10:43) ANGIOEDEMA Sulfa (Sulfonamide Antibiotics) [SULFA (SULFONAMIDE ANTIBIOTICS)] Allergy (Severe, Verified 04/04/23 10:43) FACIAL SWELLING iron [IRON] Allergy (Intermediate, Verified 04/04/23 10:43) NAUSEA lactose [LACTOSE] Allergy (Intermediate, Verified 04/04/23 10:43) DIARRHEA sertraline [From ZOLOFT] Allergy (Intermediate, Verified 04/04/23 10:43) INSOMNIA codeine Allergy (Unknown, Verified 04/04/23 10:43) Unknown lobster Allergy (Uncoded 04/04/23 10:43) Anaphylaxis Medication List - Last Reconciled 04/04/23 by Fermin Lozada MD ascorbic acid (vitamin C) 1 g PO DAILY 90 days calcium citrate-vitamin D3 315 mg-6.25 mcg (250 unit) 1 tab PO DAILY cetirizine 10 mg PO DAILY PRN cholecalciferol (vitamin D3) (Vitamin D3) 50 mcg PO DAILY cholestyramine (with sugar) 4 gram ea PO BID PRN clindamycin HCl 300 mg PO TID 7 days diclofenac sodium 1% 4 grams topical QID PRN 90 days dicyclomine 10 - 20 mg PO Q6H PRN epinephrine IM estradiol 0.01%(0.1mg/gram) vaginally daily; pea sized amount to urethra 30 days famotidine 20 mg PO DAILY ipratropium bromide 1 spray intranasal TID PRN ketoconazole 2% appl topical BID methenamine hippurate 1 g PO DAILY 90 days mirabegron ER (Myrbetriq) 50 mg PO DAILY 90 days ahfnyfuysfay-krn-ssmc-FA-vit K 45 mg iron- 800 mcg-120 mcg (Bariatric Multivitamins) 1 cap PO DAILY nitrofurantoin macrocrystal 100 mg PO BID 7 days phenazopyridine 100 mg PO TID 3 days pregabalin (Lyrica) 50 mg PO BID tizanidine 4 mg PO Q8H PRN trazodone 50 mg PO BEDTIME PRN HPI HPI Comments History of Present Illness Details This is a 72-year-old female who presents for evaluation of rheumatoid arthritis. In 2018 she was evaluated by Dr. Isaacs for bilateral knee pain and elevated ESR. Labs showed negative EROS/RF but showed moderately positive anti CCP. She was diagnosed with rheumatoid arthritis. She was started on methotrexate weekly. A bilateral hand ultrasound was unremarkable. Patient was not convinced that she had rheumatoid arthritis and stopped the methotrexate. Patient states that her daughter has psoriasis and psoriatic arthritis. She is unaware of any other family history of an autoimmune rheumatic disease. Over the last few months patient noted that she has been having bilateral hand stiffness, worse in the morning, lasting 30 minutes to 1 hour. She has difficulty making a full fist but no significant pain. The her right middle finger is painful. Over the last year she has been having bilateral foot pain. She went to urgent care once for left ankle and foot pain, there was no trauma preceding this. She states that she has had bilateral severe knee osteoarthritis and she is planned for bilateral knee replacements. She denies any history of Raynaud's. He denies any history of DVT/PE. In 2019 patient had a gastric bypass and has lost 200 lb. 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 she was eventually diagnosed with RSD of her right hand and right lower extremity. She was eventually referred to pain management and received a ganglion block but it was ineffective. Per patient it was too late. FOR[facility]LY [facility], [facility] Medical History Nephrolithiasis UTI (urinary tract infection) Annual physical exam Protein deficiency Ventral hernia Binge-eating disorder, moderate Osteoarthritis of knees, bilateral Overweight BMI 25.0-25.9,adult Degenerative disc disease, cervical Spondylosis of cervical spine Obesity (BMI 30-39.9) Peptic ulcer disease Esophageal stricture Vitamin D deficiency Peripheral neuropathy GERD (gastroesophageal reflux disease) Hypercholesterolemia RSD (reflex sympathetic dystrophy) Peripheral vascular disease Anemia Small bowel obstruction Osteopenia History of esophageal dilatation Tubular adenoma of colon Obstructive sleep apnea Hypertension Hemorrhoids Deviated septum Impaired glucose tolerance History of duodenal ulcer Osteoarthritis of knees, bilateral COPD (chronic obstructive pulmonary disease) Surgical History Cystocele History of repair of hiatal hernia Hx of gastric bypass History of arthroscopy of left knee History of umbilical hernia repair History of tubal ligation History of hemorrhoidectomy History of nasal surgery History of tonsillectomy History of cholecystectomy Family History Father No problems noted. Mother No problems noted. Daughter Psoriatic arthritis Social History Housing: Apartment Alcohol intake: former Patient Tobacco Use Status: Former Tobacco user Tobacco use type: Cigarette e-Cigarette/Vaping Use: Never Used Second Hand Smoke Exposure: No service: No Current occupational status: retired Gender identity: Female Cognitive needs: No Hearing needs: No Vision needs: Yes (glasses) Female Reproductive History Menstrual Age of Menarche: 10 Review of Systems Const Reports fatigue, Reports headache(s) and Reports weakness ENT Reports dysphagia, Reports dry mouth, Reports headache(s) and Reports hoarseness GI Reports dysphagia, Reports heartburn, Reports diarrhea and Reports nausea Musc Reports arthralgias and Reports stiffness Neuro Reports headache(s) and Reports weakness Endo Reports fatigue Physical Exam Vital Signs: Last Vital Signs Temp 98.2 F 04/04/23 10:40 Pulse 66 04/04/23 10:40 BP 116/72 04/04/23 10:40 Pulse Ox 95 04/04/23 10:40 BMI result Body Mass Index 26.1 Const General: cooperative, healthy appearing and comfortable Nutritional Appearance: overweight Orientation/consciousness: patient oriented x3 Limitations: ambulation with cane HEENT Head: Yes normocephalic and Yes atraumatic Mouth: moist mucous membranes Resp Effort & Inspection: normal respiratory effort and able to speak in complete sentences Auscultation: clear to auscultation bilaterally Cardio Rate: regular rate Rhythm: regular rhythm GI Palpation (GI): Soft to palpation Skin Other: Dry skin on both hands Neuro General: patient oriented x3 Extrem Other: Mildly tender right 3rd PIP without swelling. Negative MCP squeeze test bilaterally Mild right wrist pain with full flexion Negative MCP squeeze test bilaterally Range of motion of both elbows and shoulders without pain Bilateral knee crepitus and pain with flexion Worse on the right Left dorsal foot tenderness Bilateral diffuse MTP tenderness Right 3rd toe swelling and tenderness Normal nailfold capillaroscopy Results Reviewed Results Reviewed: Labs in 2018 CCP 46 (moderate positive) EROS/RF negative Assessment & Plan Assessment & Plan (1) Rheumatoid arthritis: Comment: -ve RF++CCP dx 2018 MTX 2018 briefly Code(s): M06.9 - Rheumatoid arthritis, unspecified Qualifiers: Rheumatoid arthritis location: multiple sites Rheumatoid factor presence: without rheumatoid factor Qualified Code(s): M06.09 - Rheumatoid arthritis without rheumatoid factor, multiple sites Plan: This is a 72-year-old female with seropositive RA who presents to reestablish care with Rheumatology. In 2018 she was diagnosed with seropositive RA based on polyarthralgias, stiffness, elevated inflammatory markers and positive anti CCP. Patient was on methotrexate for some time but stopped it as bilateral had ultrasound did not show synovitis. Over the last few months patient has been having bilateral hand stiffness, worse in the morning. Has been having bilateral foot pain. On exam she has multiple tender MTPs. Left dorsal foot tenderness. Recent x-ray showed left lateral malleolus swelling. Clinical picture consistent with inflammatory arthritis, likely rheumatoid arthritis. Check labs today. Plan to start methotrexate 15 mg once weekly. And folic acid 1 mg daily Labs before next visit in 2 months (2) Osteoporosis: Code(s): M81.0 - Age-related osteoporosis without current pathological fracture Qualifiers: Osteoporosis type: age-related Presence of current pathological fracture: without current pathological fracture Qualified Code(s): M81.0 - Age- related osteoporosis without current pathological fracture Plan: Recent DEXA scan showed osteoporosis. Patient had wrist fractures. Will need to start anti resorptive therapy. 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 Plan to start after blood work is completed. Plan I spent 47 minutes reviewing patient's chart, evaluating patient, ordering diagnostic workup, counseling patient and documenting in the chart Orders: Orders Complete Blood Count Auto Diff 2 Months M06.9 - Rheumatoid arthritis, unspecified Erythrocyte Sedimentation Rate 2 Months M06.9 - Rheumatoid arthritis, unspecified Complete Blood Count Auto Diff Today M06.9 - Rheumatoid arthritis, unspecified Comprehensive Met. Panel Today M06.9 - Rheumatoid arthritis, unspecified Erythrocyte Sedimentation Rate Today M06.9 - Rheumatoid arthritis, unspecified Hepatitis A,B,C Profile Today Z11.59 - Encounter for screening for other viral diseases T Spot TB Today Z11.7 - Encounter for testing for latent tuberculosis infection Protein Electrophoresis, Serum Today M06.9 - Rheumatoid arthritis, unspecified Comprehensive Met. Panel 2 Months M06.9 - Rheumatoid arthritis, unspecified C Reactive Protein 2 Months M06.9 - Rheumatoid arthritis, unspecified C Reactive Protein Today M06.9 - Rheumatoid arthritis, unspecified Immunofixation Pnl, Serum Today M06.9 - Rheumatoid arthritis, unspecified Coding Level of Care Code New Pt Level 4 (35087) Diagnoses Rheumatoid arthritis of multiple sites with negative rheumatoid factor M06.09 Rheumatoid arthritis location: multiple sites Rheumatoid factor presence: without rheumatoid factor Age-related osteoporosis without current pathological fracture M81.0 Osteoporosis type: age-related Presence of current pathological fracture: without current pathological fracture 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
[2023-04-04 10:40] VITALS: BP 116/72; PULSE 66; TEMP 36.8; O2SAT 95; BMI 26.1
== END 2023-04-04 11:37 | disposition home or self-care (01) ==
PROVIDERS: PCP Internal Medicine; Visit Provider Student in an Organized Health Care Education/Training Program
DX: M06.09 Rheumatoid arthritis without rheumatoid factor, multiple sites (principal); M81.0 Age-related osteoporosis without current pathological fracture; Z79.631 Long term (current) use of antimetabolite agent
CPT/HCPCS: 99204

== ENCOUNTER 2023-04-07 09:16 | Outpatient (AMB) | payer OTHER, SELFPAY ==
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
== END 2023-04-07 10:27 | disposition home or self-care (01) ==
PROVIDERS: PCP Internal Medicine; Visit Provider Counselor Mental Health
DX: F50.81 Binge eating disorder (principal); Z98.84 Bariatric surgery status
CPT/HCPCS: 90834

== ENCOUNTER → 2023-04-07 09:16 | Outpatient (BNVA) | payer OTHER, SELFPAY | PROVIDERS: PCP Internal Medicine; Visit Provider Counselor Mental Health ==

== ENCOUNTER 2023-04-08 13:20 | Outpatient (AMB) | payer OTHER, SELFPAY ==
--- NOTE | 2023-04-08 14:01 | MHC.OFFVIS ---
Intake Intake Visit Reasons: Microgen results Intake Note: Patient is present for follow up recurrent uti Urology Medications: estradiol, myrbetriq Blood Thinner: none PVR: 0ml's Cell Technician Required: No Accompanied by: Self / Same As Patient Allergies hydrochlorothiazide [HYDROCHLOROTHIAZIDE] Allergy (Severe, Verified 04/08/23 19:08) ANGIOEDEMA lisinopril [LISINOPRIL] Allergy (Severe, Verified 04/08/23 19:08) ANGIOEDEMA Sulfa (Sulfonamide Antibiotics) [SULFA (SULFONAMIDE ANTIBIOTICS)] Allergy (Severe, Verified 04/08/23 19:08) FACIAL SWELLING iron [IRON] Allergy (Intermediate, Verified 04/08/23 19:08) NAUSEA lactose [LACTOSE] Allergy (Intermediate, Verified 04/08/23 19:08) DIARRHEA sertraline [From ZOLOFT] Allergy (Intermediate, Verified 04/08/23 19:08) INSOMNIA codeine Allergy (Unknown, Verified 04/08/23 19:08) Unknown lobster Allergy (Uncoded 04/08/23 19:08) Anaphylaxis Medication List - Last Reconciled 04/08/23 by VIKY Garcia-RUBEN ascorbic acid (vitamin C) 1 g PO DAILY 90 days calcium citrate-vitamin D3 315 mg-6.25 mcg (250 unit) 1 tab PO DAILY cetirizine 10 mg PO DAILY PRN cholecalciferol (vitamin D3) (Vitamin D3) 50 mcg PO DAILY cholestyramine (with sugar) 4 gram ea PO BID PRN diclofenac sodium 1% 4 grams topical QID PRN 90 days dicyclomine 10 - 20 mg PO Q6H PRN epinephrine IM estradiol 0.01%(0.1mg/gram) vaginally daily; pea sized amount to urethra 30 days famotidine 20 mg PO DAILY folic acid 1 mg PO DAILY ipratropium bromide 1 spray intranasal TID PRN ketoconazole 2% appl topical BID methenamine hippurate 1 g PO DAILY 90 days methotrexate sodium 15 mg (6 x 2.5 mg) PO QWEEK mirabegron ER (Myrbetriq) 50 mg PO DAILY 90 days cgctwcntlgqa-dyq-hvyq-FA-vit K 45 mg iron- 800 mcg-120 mcg (Bariatric Multivitamins) 1 cap PO DAILY pregabalin (Lyrica) 50 mg PO BID tizanidine 4 mg PO Q8H PRN trazodone 50 mg PO BEDTIME PRN HPI HPI Comments History of Present Illness Details María is a very pleasant [address] patient Dr[address] Nicole. She has a past medical history of binge eating disorder, osteoarthritis, overweight, degenerative disc disease, obesity, peptic ulcer disease, esophageal stricture, vitamin-D deficiency, peripheral neuropathy, GERD, hypercholesteremia, peripheral vascular disease, OMID, hemorrhoids, and COPD. She presents to the office today for a follow up of her recurrent urinary tract infections. Of note, she has just finished PO clindamycin for recent microgen results noting lactobacillus gasseri and lactobacillus crispatus. She reports having completed antibiotic therapy last and feels urinary symptoms have somewhat improved however she does continue with intermittent episodes of dysuria. In office urinalysis with 1+ leukocytes 3+ microscopic hematuria. PVR 0ml's. When asked she reports compliance with Estrace cream as prescribed, methenamine ,vitamin-C, and Myrbetriq as prescribed. Earlier this week she underwent tight anterior/posterior repair and cystoscopy for recurrent prolapse with Dr. Мария Klein. Previous workup has included a retroperitoneal ultrasound noting nonobstructive echogenic stone lower pole right kidney. Left kidney is unremarkable. She has a past medical history of mesh being inserted with as well as InterStim however InterStim was removed related to infection. She reports having a cystocele and rectocele repair with Dr. Ayers in the past. Patient also reports having performed pelvic therapy in the past as well. She denies constipation however reports longstanding history of diarrhea since her gulbladder was removed over 20 years ago. Discussed at length importance of hydration and compliance with medications as prescribed. Discussed at length potential causes for recurrent urinary tract infections. Discussed potential for post UTI syndrome given recurrent UTIs and patient reporting intermittent episodes of dysuria. Will send urine for urine culture. Discussed further assessment evaluation with in office cystoscopy. She otherwise offers no issues or concerns at this time. [facility] Medical History Nephrolithiasis UTI (urinary tract infection) Annual physical exam Protein deficiency Ventral hernia Binge-eating disorder, moderate Osteoarthritis of knees, bilateral Overweight BMI 25.0-25.9,adult Degenerative disc disease, cervical Spondylosis of cervical spine Obesity (BMI 30-39.9) Peptic ulcer disease Esophageal stricture Vitamin D deficiency Peripheral neuropathy GERD (gastroesophageal reflux disease) Hypercholesterolemia RSD (reflex sympathetic dystrophy) Peripheral vascular disease Anemia Small bowel obstruction Osteopenia History of esophageal dilatation Tubular adenoma of colon Obstructive sleep apnea Hypertension Hemorrhoids Deviated septum Impaired glucose tolerance History of duodenal ulcer Osteoarthritis of knees, bilateral COPD (chronic obstructive pulmonary disease) Surgical History Cystocele History of repair of hiatal hernia Hx of gastric bypass History of arthroscopy of left knee History of umbilical hernia repair History of tubal ligation History of hemorrhoidectomy History of nasal surgery History of tonsillectomy History of cholecystectomy Family History Father No problems noted. Mother No problems noted. Daughter Psoriatic arthritis Social History Housing: Apartment Alcohol intake: former Patient Tobacco Use Status: Former Tobacco user Tobacco use type: Cigarette e-Cigarette/Vaping Use: Never Used Second Hand Smoke Exposure: No service: No Current occupational status: retired Gender identity: Female Cognitive needs: No Hearing needs: No Vision needs: Yes (glasses) Female Reproductive History Menstrual Age of Menarche: 10 Review of Systems Const Reports as per HPI Eyes Reports no additional complaints ENT Reports no additional complaints Card Reports as per HPI Resp Reports as per HPI GI Reports as per HPI Reports as per HPI Musc Reports as per HPI Psych Reports as per HPI Endo Reports no additional complaints Gold/Lymph Reports no additional complaints Aller/Immun Reports no additional complaints Physical Exam Const General: cooperative, healthy appearing, comfortable, no acute distress, well developed, alert and awake Orientation/consciousness: patient oriented x3 Limitations: no limitations HEENT Head: Yes normal to inspection, Yes normocephalic and Yes atraumatic Eyes General: appearance normal, both eyes and all related structures Neck Neck: Yes normal visual inspection and Yes trachea midline Chest Chest palpation & inspection: normal inspection of the chest Cardio Rate: regular rate GI Other: patient reports seroma to abdominal area. General: Yes no CVA tenderness Back/Spine/Pelvis Back: no CVA tenderness Neuro General: patient oriented x3 Extrem General: Yes normal to inspection Psych Appearance: grossly normal and well kempt Mental Status: mental status grossly normal Speech and movement: Normal speech and movement present Affect: normal affect Attitude: cooperative Thought process: Normal thought process present Thought content: Normal thought content present Insight: Fair insight present (Psych) Judgement: Fair judgement present (Psych) Assessment & Plan Assessment & Plan (1) Recurrent urinary tract infection: Code(s): N39.0 - Urinary tract infection, site not specified (2) Bilateral renal stones: Code(s): N20.0 - Calculus of kidney (3) Urinary incontinence: Code(s): R32 - Unspecified urinary incontinence (4) Dysuria: Code(s): R30.0 - Dysuria Plan In office urinalysis results reviewed with the patient today; as noted above; will send for urine culture. PVR-0ml's Discussed at length potential causes for recurrent urinary tract infections. Continue with Estrace cream, methenamine, vitamin-C, and Myrbetriq as prescribed Discussed UTI prevention with behavioral therapy with timed voiding, perineal hygiene and postcoital voiding, and management of diarrhea. Follow up in office cystoscopy for further assessment and evaluation. Orders: Orders AMB Urinalysis Automated Today Z13.9 - Encounter for screening, unspecified Urine Cytology Today N39.0 - Urinary tract infection, site not specified AMB Post Void Residual by ultrasound Today R32 - Unspecified urinary incontinence Urine Culture Today N39.0 - Urinary tract infection, site not specified Patient Instructions: The patient had an opportunity to ask questions regarding the treatment plan. All questions were answered. Physical exam, labs, and imaging were discussed and reviewed in detail. As well as risks, benefits, and discussion of treatment choices. No major barriers to understanding were identified. The patient expressed understanding and agreement with the above treatment plan. The patient was made aware they should contact our office by phone for worsening of their current condition, the appearance of new symptoms, or with any questions or concerns. Compliance is encouraged with any medications and follow up testing that is ordered. It is a privilege to be allowed the opportunity to participate in? your urological care.? Again, if you have any questions or concerns If you have any questions or concerns please do not hesitate to contact me. The office is [phone]. This note is constructed using voice recognition software. While every effort has been made to ensure accuracy administrative clerk errors may have been included. Yours sincerely, Althea Michael, MOCCASIN SEWER-BC Coding Level of Care Code Est Pt Level 4 (33715) Diagnoses Recurrent urinary tract infection N39.0 Bilateral renal stones N20.0 Urinary incontinence R32 Dysuria R30.0
== END 2023-04-08 14:51 | disposition home or self-care (01) ==
PROVIDERS: PCP Internal Medicine; Visit Provider Nurse Practitioner Family
DX: N39.0 Urinary tract infection, site not specified (principal); N20.0 Calculus of kidney; R32 Unspecified urinary incontinence; R30.0 Dysuria
CPT/HCPCS: 99214

== ENCOUNTER 2023-04-08 13:20 | Outpatient (REF) | payer OTHER, SELFPAY ==
[2023-04-08 16:46] LABS: Urine Cytology See Pathology rpt
== END 2023-04-08 13:21 | disposition home or self-care (01) ==
LOC: HO.LNP 13:20
PROVIDERS: PCP Internal Medicine; Visit Provider Nurse Practitioner Family
DX: N39.0 Urinary tract infection, site not specified (principal); N20.0 Calculus of kidney; R32 Unspecified urinary incontinence; R30.0 Dysuria
CPT/HCPCS: 87086; 88112; 99212

== ENCOUNTER 2023-04-14 11:16 | Outpatient (REF) | payer OTHER, SELFPAY ==
[2023-04-14 16:46] LABS: Urine Cytology See Pathology rpt
== END 2023-04-14 11:17 | disposition home or self-care (01) ==
LOC: HO.LAB 11:16
PROVIDERS: PCP Internal Medicine; Visit Provider Urology
DX: N39.0 Urinary tract infection, site not specified (principal); N32.9 Bladder disorder, unspecified; R32 Unspecified urinary incontinence
CPT/HCPCS: 52000; 81003; 87086; 88112; 99212

== ENCOUNTER 2023-04-14 11:16 | Outpatient (AMB) | payer OTHER, SELFPAY ==
--- NOTE | 2023-04-14 11:29 | A.OFFVIS_ITS ---
Intake Intake Visit Reasons: cystoscopy Intake Note: Patient is Present for Cystoscopy Urology Med: Myrbetriq, Methenamine, Antibiotic Allergy: Sulfa, Blood Thinner: None URO- G Disposable Cystoscope lot: [id number] exp: 11/06/24 Allergies hydrochlorothiazide [HYDROCHLOROTHIAZIDE] Allergy (Severe, Verified 04/29/23 12:14) ANGIOEDEMA lisinopril [LISINOPRIL] Allergy (Severe, Verified 04/29/23 12:14) ANGIOEDEMA Sulfa (Sulfonamide Antibiotics) [SULFA (SULFONAMIDE ANTIBIOTICS)] Allergy (Severe, Verified 04/29/23 12:14) FACIAL SWELLING iron [IRON] Allergy (Intermediate, Verified 04/29/23 12:14) NAUSEA lactose [LACTOSE] Allergy (Intermediate, Verified 04/29/23 12:14) DIARRHEA sertraline [From ZOLOFT] Allergy (Intermediate, Verified 04/29/23 12:14) INSOMNIA codeine Allergy (Unknown, Verified 04/29/23 12:14) Unknown lobster Allergy (Uncoded 04/29/23 12:14) Anaphylaxis HPI HPI Comments History of Present Illness Details 04/14/23- María is here for cystoscopy . María is a very pleasant [address] female patient Dr[address] Nicole. She has a past medical history of binge eating disorder, osteoarthritis, overweight, degenerative disc disease, obesity, peptic ulcer disease, esophageal stricture, vitamin-D deficiency, peripheral neuropathy, GERD, hypercholesteremia, peripheral vascular disease, OMID, hemorrhoids, and COPD. Cystoscopy - finding: flattened erythematous lesion right lateral wall > 2 cm--to <5 cm Review of chart: LV - 04/08/23 with CHEIKH Oh for recurrent urinary tract infections. Previous workup has included a retroperitoneal ultrasound noting nonobstructive echogenic stone lower pole right kidney. Left kidney is unremarkable. She has a past medical history of mesh being inserted with as well as InterStim however InterStim was removed related to infection. She reports having a cystocele and rectocele repair with Dr. Ayers in the past. Patient also reports having performed pelvic therapy in the past as well. Review of meds: Estrace cream as prescribed, methenamine ,vitamin-C, and Myrbetriq as prescribed. Plan: 04/14/23- Cysto/TURBT. Discussed risks to include but not limited to, blood in the urine, burning with urination, urgency. Possible ivy catheter. [facility] Medical History Nephrolithiasis UTI (urinary tract infection) Annual physical exam Protein deficiency Ventral hernia Binge-eating disorder, moderate Osteoarthritis of knees, bilateral Overweight BMI 25.0-25.9,adult Degenerative disc disease, cervical Spondylosis of cervical spine Obesity (BMI 30-39.9) Peptic ulcer disease Esophageal stricture Vitamin D deficiency Peripheral neuropathy GERD (gastroesophageal reflux disease) Hypercholesterolemia RSD (reflex sympathetic dystrophy) Peripheral vascular disease Anemia Small bowel obstruction Osteopenia History of esophageal dilatation Tubular adenoma of colon Obstructive sleep apnea Hypertension Hemorrhoids Deviated septum Impaired glucose tolerance History of duodenal ulcer Osteoarthritis of knees, bilateral COPD (chronic obstructive pulmonary disease) Surgical History Cystocele History of repair of hiatal hernia Hx of gastric bypass History of arthroscopy of left knee History of umbilical hernia repair History of tubal ligation History of hemorrhoidectomy History of nasal surgery History of tonsillectomy History of cholecystectomy Family History Father No problems noted. Mother No problems noted. Daughter Psoriatic arthritis Social History Housing: Apartment Alcohol intake: former Comment: pressure Patient Tobacco Use Status: Former Tobacco user Tobacco use type: Cigarette e-Cigarette/Vaping Use: Never Used Second Hand Smoke Exposure: No Use of substances other than those prescribed or required for medical reasons: No Are you DNR?: No Advance Directives: No Advance Directives Information Provided: Yes service: No Current occupational status: retired Gender identity: Female Cognitive needs: No Hearing needs: No Vision needs: Yes (glasses) Female Reproductive History Menstrual Age of Menarche: 10 Review of Systems Const Reports as per HPI Eyes Reports no additional complaints ENT Reports no additional complaints Card Reports as per HPI Resp Reports as per HPI GI Reports as per HPI Reports as per HPI Musc Reports as per HPI Psych Reports as per HPI Endo Reports no additional complaints Gold/Lymph Reports no additional complaints Aller/Immun Reports no additional complaints Office Procedures Cystoscopy Consent Discussed risk and benefit or proposed procedure with the patient. Information consent for procedure given to the patient. Discussed technical aspects, risks, benefits and alternatives in full. Addressed all of the patient's questions and concerns regarding the procedure. The patient demonstrated knowledge and understanding. They wish to proceed with this procedure. Preparation The patient was prepped in the usual manner. A employee health nurse was present and in the room. Genitalia was prepped with betadine solution in a sterile manner. Lidocaine Jelly 2% was placed into the urethra and 16Fr flexible Olympus cystoscope was inserted into the meatus after adequate lubrication. Time out per protocol performed. Bladder Inspection Bladder Inspection: The bladder was inspected in its entirety with utilization retroflexion displaying: Tumor(s): see below Trabeculation: mild Mucosal Erthema: mild Orifices: normal shape and position Urethra: normal Cystoscopy findings: flattened erythematous lesion right lateral wall > 2 cm [id number] DISPOSABLE SCOPE URO-G FLEXIBLE SCOPE Procedure code (CPT) selection complete Office Meds lidocaine HCl 2 % mucosal jelly in applicator Performing Provider: Asif Paz MD [facility]forming [facility] [place] Administered by: Lise Harris RN on 04/14/23 11:40 Dose Route Admin Location Dispensed Lot Number Expiration Date ND Osteopathic Neurologist 10 mL intra-urethral 20 mL naproxen 500 mg tablet Performing Provider: Asif Paz MD Performing Location: [facility] [place] [facility] Administered by: Lise Harris RN on 04/14/23 11:40 Dose Route Admin Location Dispensed Lot Number Expiration Date NDC Osteopathic Neurologist 500 mg PO 1 tab ciprofloxacin HCl 500 mg tablet Performing Provider: Asif Paz MD Performing Location: [facility] [place] [facility] Administered by: Lise Harris RN on 04/14/23 11:40 Dose Route Admin Location Dispensed Lot Number Expiration Date NDC Osteopathic Neurologist 500 mg PO 1 tab Results AMB Urinalysis, Automated UA Leukoctes 0 Walt/uL Last Edit by FACUNDO Gay on 04/14/23 11:37 UA Nitrite Negative Last Edit by FACUNDO Gay on 04/14/23 11:37 UA Urobilinogen 0.2 mg/dL Last Edit by AYANNA GayA on 04/14/23 11:3 7 UA Protein 0 mg/dL Last Edit by Altagracia Vieyra, RMA on 04/14/23 11:37 UA pH 6.0 Last Edit by Altagracia Vieyra, RMA on 04/14/23 11:37 UA Blood 25 Bo/uL Last Edit by Altagracia Vieyra, RMA on 04/14/23 11:37 UA Specific [place] 1.010 Last Edit by Altagracia Vieyra, RMA on 04/14/23 11: 37 UA Ketone Negative Last Edit by Altagracia Vieyra, RMA on 04/14/23 11:37 UA Bilirubin 0 mg/dL Last Edit by Altagracia Vieyra, RMA on 04/14/23 11:37 UA Glucose 0 mg/dL Last Edit by Altagracia Vieyra, RMA on 04/14/23 11:37 Results Reviewed Results Reviewed: Laboratory Last Values Urine pH (Auto) 6.0 04/14/23 11:37 Specific [place] (Auto) 1.010 04/14/23 11:37 Urine Protein (Auto) 0 mg/dL 04/14/23 11:37 Glucose (UA)(Auto) 0 mg/dL 04/14/23 11:37 Urine Ketones (Auto) Negative 04/14/23 11:37 Urine Blood (Auto) 25 Bo/uL 04/14/23 11:37 Urine Nitrite (Auto) Negative 04/14/23 11:37 Urine Bilirubin (Auto) 0 mg/dL 04/14/23 11:37 Urine Urobilinogen (Auto) 0.2 mg/dL 04/14/23 11:37 Leukocyte Esterase (Auto) 0 Walt/uL 04/14/23 11:37 Assessment & Plan Assessment & Plan (1) Recurrent urinary tract infection: Code(s): N39.0 - Urinary tract infection, site not specified (2) Lesion of bladder: Code(s): N32.9 - Bladder disorder, unspecified Plan Cystoscopy bladder biopsies Orders: Orders AMB Cystoscopy 04/14/23 R32 - Unspecified urinary incontinence AMB Urinalysis Automated 04/14/23 Z13.9 - Encounter for screening, unspecified Urine Culture 04/14/23 N39.0 - Urinary tract infection, site not specified Urine Cytology 04/14/23 N39.0 - Urinary tract infection, site not specified Patient Instructions: The patient had an opportunity to ask questions regarding treatment plan. All questions were answered. Imaging, Laboratory studies and physical exam results were discussed and reviewed in detail. No major barriers to understanding were identified. The patient expressed understanding and agreement with the above treatment plan. The patient is aware they should contact our office by phone for worsening of their current condition or the appearance of new symptoms. Compliance is encouraged with any medications and followup testing that is ordered. It is a privilege to be allowed the opportunity to participate in the urologic care of your patient. If you have any questions or concerns regarding treatment for the above conditions please do not hesitate to contact me. The office telephone contact is [phone]. This note is constructed in part using voice recognition software. While every effort has been made to ensure accuracy cleat blanker errors may have been included. Yours sincerely, Asif Paz MD Coding Level of Care Code Est Pt Level 4 (26155) Diagnoses Recurrent urinary tract infection N39.0 Lesion of bladder N32.9 CPT Codes Cystoscopy - CPT: 55032-[id number] ([id number])
== END 2023-04-14 12:17 | disposition home or self-care (01) ==
PROVIDERS: PCP Internal Medicine; Visit Provider Urology
DX: R32 Unspecified urinary incontinence (principal); Z13.9 Encounter for screening, unspecified
CPT/HCPCS: 52000; 99214

== ENCOUNTER 2023-04-29 11:48 | Day surgery (SDC) | payer OTHER, SELFPAY ==
--- NOTE | 2023-04-28 12:01 | P.CONAN_ITS ---
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 (Acute) Osteoporosis (Acute) Left foot pain (Acute) Rheumatoid arthritis (Acute) Recurrent urinary tract infection (Acute) Bilateral renal stones (Acute) Insomnia (Acute) Seroma of digestive system after non-digestive system procedure (Acute) Bile salt-induced diarrhea (Acute) Peripheral vascular disease (Acute) Bladder problem (Acute) Vitamin A deficiency (Acute) Vitamin D deficiency (Acute) Panniculitis (Acute) Alkaline phosphatase elevation (Acute) Impacted cerumen of both ears (Acute) Urinary incontinence (Acute) Osteopenia (Acute) RSD (reflex sympathetic dystrophy) (Acute) Annual physical exam (Acute) Abdominal pain (Acute) Hx of gastric bypass (Acute) Degenerative disc disease, cervical (Acute) Spondylosis of cervical spine (Acute) Abdominal pain (Acute) Intestinal malabsorption following gastrectomy (Acute) Dysuria (Acute) Fracture of proximal phalanx of right middle finger (Acute) Closed displaced fracture of neck of right fifth metacarpal bone (Acute) Distal radius fracture, right (Acute) Cystocele (Acute) Allergic rhinitis (Acute) Vaginal prolapse (Acute) GERD (gastroesophageal reflux disease) (Acute) Hypercholesterolemia (Acute) Hypertension (Acute) Osteoarthritis of knees, bilateral (Acute) COPD (chronic obstructive pulmonary disease) (Acute) Past Medical History Medical History Nephrolithiasis UTI (urinary tract infection) Annual physical exam Protein deficiency Ventral hernia Binge-eating disorder, moderate Osteoarthritis of knees, bilateral Overweight BMI 25.0-25.9,adult Degenerative disc disease, cervical Spondylosis of cervical spine Obesity (BMI 30-39.9) Peptic ulcer disease Esophageal stricture Vitamin D deficiency Peripheral neuropathy GERD (gastroesophageal reflux disease) Hypercholesterolemia RSD (reflex sympathetic dystrophy) Peripheral vascular disease Anemia Small bowel obstruction Osteopenia History of esophageal dilatation Tubular adenoma of colon Obstructive sleep apnea Hypertension Hemorrhoids Deviated septum Impaired glucose tolerance History of duodenal ulcer Osteoarthritis of knees, bilateral COPD (chronic obstructive pulmonary disease) Family History Family History (Updated 04/10/23 @ 11:51 by Elle Marte [facility]) Father No problems noted. Mother No problems noted. Daughter Psoriatic arthritis Surgical History Surgical History Cystocele History of repair of hiatal hernia Hx of gastric bypass History of arthroscopy of left knee History of umbilical hernia repair History of tubal ligation History of hemorrhoidectomy History of nasal surgery History of tonsillectomy History of cholecystectomy Social History Social History Housing: Apartment Alcohol intake: former Comment: pressure Patient Tobacco Use Status: Former Tobacco user Tobacco use type: Cigarette e-Cigarette/Vaping Use: Never Used Second Hand Smoke Exposure: No service: No Current occupational status: retired Gender identity: Female Cognitive needs: No Hearing needs: No Vision needs: Yes (glasses) Meds Allergies Allergy/AdvReac Type Severity Reaction Status Date / Time hydrochlorothiazide Allergy Severe ANGIOEDEMA Verified 04/10/23 11:50 [HYDROCHLOROTHIAZIDE] lisinopril [LISINOPRIL] Allergy Severe ANGIOEDEMA Verified 04/10/23 11:50 Sulfa (Sulfonamide Allergy Severe FACIAL Verified 04/10/23 11:50 Antibiotics) SWELLING [SULFA (SULFONAMIDE ANTIBIOTICS)] iron [IRON] Allergy Intermediate NAUSEA Verified 04/10/23 11:50 lactose [LACTOSE] Allergy Intermediate DIARRHEA Verified 04/10/23 11:50 sertraline [From ZOLOFT] Allergy Intermediate INSOMNIA Verified 04/10/23 11:50 codeine Allergy Unknown Unknown Verified 04/10/23 11:50 lobster Allergy Anaphylaxis Uncoded 04/10/23 11:50 Home Medications Medication Instructions Recorded Confirmed Last Taken Type [id number] 45 mg-folic 1 cap PO DAILY 02/12/21 03/04/23 Unknown History acid 800 mcg-vit K 120 mcg capsule (Bariatric Multivitamins) calcium citrate 315 mg 1 tab PO DAILY 08/09/22 03/04/23 Unknown History calcium-vitamin D3 6.25 mcg (250 unit) tablet ipratropium bromide 42 mcg (0.06 1 spray intranasal TID PRN 08/09/22 03/04/23 Unknown History %) nasal spray ketoconazole 2 % topical cream appl topical BID 08/09/22 03/04/23 Unknown History cholestyramine (with sugar) 4 gram ea PO BID PRN 04/04/23 Unknown History oral powder dicyclomine 10 mg capsule 10 - 20 mg PO Q6H PRN cramps 04/04/23 Unknown History epinephrine 0.3 mg/0.3 mL IM 04/04/23 Unknown History injection, auto-injector famotidine 20 mg tablet 20 mg PO DAILY 04/04/23 Unknown History Exam Pertinent Lab Results Pertinent Lab Results: Laboratory Tests 04/04/23 11:57 WBC 3.8 L Hgb 11.6 L Hct 35.8 L Plt Count 163 Sodium 140 Potassium 4.3 Chloride 108 Carbon Dioxide 27 BUN 17 H Creatinine 0.80 Narrative Narrative: EKG 09/2022 Vent. Rate : 060 BPM Atrial Rate : 060 BPM P-R Int : 132 ms QRS Dur : 086 ms QT Int : 422 ms P-R-T Axes : 072 006 017 degrees QTc Int : 422 ms Normal sinus rhythm Inferior infarct (cited on or before 04-FEB-2019) Abnormal ECG When compared with ECG of 28-SEP-2019 13:51, Criteria for Anterior infarct are no longer Present Criteria for Anterolateral infarct are no longer Present T wave inversion less evident in Anterior leads Assessment and Plan Assessment Anesthesia Assessment: Chart Reviewed
[2023-04-29 12:16] VITALS: BMI 25.1
[2023-04-29 12:20] VITALS: BMI 25.1
[2023-04-29 12:29] VITALS: BP 155/75; PULSE 58; RESP 16; TEMP 37.1; O2SAT 94
[2023-04-29] MEDS: Lactated Ringers 1,000 ML 100 ML IVCONT (12:44)
--- NOTE | 2023-04-29 14:41 | PC.NURSE ---
Pre op care transitioned to Jose TAM.
--- NOTE | 2023-04-29 15:19 | MHC.SHP ---
Pre-Procedural Eval Section A Date of Service: 04/29/23 The patient is an INPATIENT: No The History & Physical has been completed within 30 days and I have reviewed it.: Yes Section B Chief Complaint: Urinary tract infection, hematuria Allergies: Allergies Allergy/AdvReac Type Severity Reaction Status Date / Time hydrochlorothiazide Allergy Severe ANGIOEDEMA Verified 04/29/23 12:14 [HYDROCHLOROTHIAZIDE] lisinopril [LISINOPRIL] Allergy Severe ANGIOEDEMA Verified 04/29/23 12:14 Sulfa (Sulfonamide Allergy Severe FACIAL Verified 04/29/23 12:14 Antibiotics) SWELLING [SULFA (SULFONAMIDE ANTIBIOTICS)] iron [IRON] Allergy Intermediate NAUSEA Verified 04/29/23 12:14 lactose [LACTOSE] Allergy Intermediate DIARRHEA Verified 04/29/23 12:14 sertraline [From ZOLOFT] Allergy Intermediate INSOMNIA Verified 04/29/23 12:14 codeine Allergy Unknown Unknown Verified 04/29/23 12:14 lobster Allergy Anaphylaxis Uncoded 04/29/23 12:14 Plan Diagnosis/Plan: Unchanged I have reviewed the history and physical and performed a pertinent physical examination on my patient. No changes have occurred unless specified. Cystoscopy transurethral resection bladder lesion, bladder biopsy Time Spent With Patient Time: Total time managing care of this patient today ____ minutes.
--- NOTE | 2023-04-29 15:52 | P.CONAN_ITS ---
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) Osteoporosis (Acute) Left foot pain (Acute) Rheumatoid arthritis (Acute) Recurrent urinary tract infection (Acute) Bilateral renal stones (Acute) Insomnia (Acute) Seroma of digestive system after non-digestive system procedure (Acute) Bile salt-induced diarrhea (Acute) Peripheral vascular disease (Acute) Bladder problem (Acute) Vitamin A deficiency (Acute) Vitamin D deficiency (Acute) Panniculitis (Acute) Alkaline phosphatase elevation (Acute) Impacted cerumen of both ears (Acute) Urinary incontinence (Acute) Osteopenia (Acute) RSD (reflex sympathetic dystrophy) (Acute) Annual physical exam (Acute) Abdominal pain (Acute) Hx of gastric bypass (Acute) Degenerative disc disease, cervical (Acute) Spondylosis of cervical spine (Acute) Abdominal pain (Acute) Intestinal malabsorption following gastrectomy (Acute) Dysuria (Acute) Fracture of proximal phalanx of right middle finger (Acute) Closed displaced fracture of neck of right fifth metacarpal bone (Acute) Distal radius fracture, right (Acute) Cystocele (Acute) Allergic rhinitis (Acute) Vaginal prolapse (Acute) GERD (gastroesophageal reflux disease) (Acute) Hypercholesterolemia (Acute) Hypertension (Acute) Osteoarthritis of knees, bilateral (Acute) COPD (chronic obstructive pulmonary disease) (Acute) Past Medical History Medical History Nephrolithiasis UTI (urinary tract infection) Annual physical exam Protein deficiency Ventral hernia Binge-eating disorder, moderate Osteoarthritis of knees, bilateral Overweight BMI 25.0-25.9,adult Degenerative disc disease, cervical Spondylosis of cervical spine Obesity (BMI 30-39.9) Peptic ulcer disease Esophageal stricture Vitamin D deficiency Peripheral neuropathy GERD (gastroesophageal reflux disease) Hypercholesterolemia RSD (reflex sympathetic dystrophy) Peripheral vascular disease Anemia Small bowel obstruction Osteopenia History of esophageal dilatation Tubular adenoma of colon Obstructive sleep apnea Hypertension Hemorrhoids Deviated septum Impaired glucose tolerance History of duodenal ulcer Osteoarthritis of knees, bilateral COPD (chronic obstructive pulmonary disease) Functional capacity: independent ambulation Family History Family History Father No problems noted. Mother No problems noted. Daughter Psoriatic arthritis Family history of problems with anesthesia: No Surgical History Surgical History Cystocele History of repair of hiatal hernia Hx of gastric bypass History of arthroscopy of left knee History of umbilical hernia repair History of tubal ligation History of hemorrhoidectomy History of nasal surgery History of tonsillectomy History of cholecystectomy History of Problems with Anesthesia: No Social History Social History Housing: Apartment Alcohol intake: former Comment: pressure Patient Tobacco Use Status: Former Tobacco user Tobacco use type: Cigarette e-Cigarette/Vaping Use: Never Used Second Hand Smoke Exposure: No Use of substances other than those prescribed or required for medical reasons: No Are you DNR?: No Advance Directives: No Advance Directives Information Provided: Yes service: No Current occupational status: retired Gender identity: Female Cognitive needs: No Hearing needs: No Vision needs: Yes (glasses) Meds Allergies Allergy/AdvReac Type Severity Reaction Status Date / Time hydrochlorothiazide Allergy Severe ANGIOEDEMA Verified 04/29/23 12:14 [HYDROCHLOROTHIAZIDE] lisinopril [LISINOPRIL] Allergy Severe ANGIOEDEMA Verified 04/29/23 12:14 Sulfa (Sulfonamide Allergy Severe FACIAL Verified 04/29/23 12:14 Antibiotics) SWELLING [SULFA (SULFONAMIDE ANTIBIOTICS)] iron [IRON] Allergy Intermediate NAUSEA Verified 04/29/23 12:14 lactose [LACTOSE] Allergy Intermediate DIARRHEA Verified 04/29/23 12:14 sertraline [From ZOLOFT] Allergy Intermediate INSOMNIA Verified 04/29/23 12:14 codeine Allergy Unknown Unknown Verified 04/29/23 12:14 lobster Allergy Anaphylaxis Uncoded 04/29/23 12:14 Active Medications: Current Medications Albuterol Sulfate (Albuterol Sulfate (0.083%) 2.5 Mg/3 Ml Vial.Neb) 2.5 mg INHALE ONCE PRN PRN Reason: Shortness of Breath/Wheezing Lactated Ringer's (Lr) 1,000 mls @ 100 mls/hr IVCONT .Q10H JOSÉ Last Admin: 04/29/23 12:44 Dose: 100 mls/hr Cefazolin Sodium/Dextrose (Ancef) 2 gm in 50 mls @ 100 mls/hr IV PREOP ONE Stop: 04/29/23 15:56 Home Medications Medication Instructions Recorded Confirmed Last Taken Type [id number] 45 mg-folic 1 cap PO DAILY 02/12/21 03/04/23 Unknown History acid 800 mcg-vit K 120 mcg capsule (Bariatric Multivitamins) calcium citrate 315 mg 1 tab PO DAILY 08/09/22 03/04/23 Unknown History calcium-vitamin D3 6.25 mcg (250 unit) tablet ipratropium bromide 42 mcg (0.06 1 spray intranasal TID PRN 08/09/22 03/04/23 Unknown History %) nasal spray ketoconazole 2 % topical cream appl topical BID 08/09/22 03/04/23 Unknown History cholestyramine (with sugar) 4 gram ea PO BID PRN 04/04/23 Unknown History oral powder dicyclomine 10 mg capsule 10 - 20 mg PO Q6H PRN cramps 04/04/23 Unknown History epinephrine 0.3 mg/0.3 mL IM 04/04/23 Unknown History injection, auto-injector famotidine 20 mg tablet 20 mg PO DAILY 04/04/23 Unknown History Exam Height,Weight and Vital Signs: Height 5 ft 1 in Weight 60.328 kg Last Vital Signs Temp 98.8 F 04/29/23 12:29 Pulse 58 04/29/23 12:29 Resp 16 04/29/23 12:29 BP 155/75 H 04/29/23 12:29 Pulse Ox 94 04/29/23 12:29 O2 Del Method Room Air 04/29/23 12:29 Airway Mallampati Class: II TM Dist: >3cm Neck ROM: Full Denture: Upper and Lower Heart: RRR Lungs: CTA Assessment and Plan Assessment Anesthesia Assessment: Anesthesia Plan Discussed Final Anesthetic Review Family History of Problems with Anesthesia: No History of Problems with Anesthesia: No ASA Class: III Final Preanesthetic Review: Meds/Allgs Chart Reviewed, Consent Obtained/Reviewed and Anes Risks/Benef Reviewed Patient Risk: Low Procedure Risk: Low Anesthetic Plan Anesthetic Plan: GA Disposition: Standard PACU
[2023-04-29 16:33] VITALS: BP 157/54; PULSE 64; RESP 16; TEMP 36.3; O2SAT 96
[2023-04-29 16:38] VITALS: BP 148/64; PULSE 60; RESP 16; O2SAT 97
[2023-04-29 16:43] VITALS: BP 146/70; PULSE 61; RESP 16; O2SAT 98
[2023-04-29 16:48] VITALS: BP 145/65; PULSE 60; RESP 16; O2SAT 97
--- NOTE | 2023-04-29 16:58 | W.PM.OPN ---
Operative Note Operative Note Date of Service: 04/29/23 Narrative: PREOP DIAGNOSIS: BLADDER TUMOR, RECURRENT UTI'S POSTOP DIAGNOSIS: BLADDER TUMOR, RECURRENT UTI'S PROCEDURE: CYSTOSCOPY TRANSURETHRAL RESECTION OF BLADDER TUMOR, FULGURATION, RANDOM BLADDER BIOPSIES Anesthesia: General Surgeon Dr. Chandra Findings: Erythematous flatten lesion right lateral wall length 2-3 cm Details of procedure: The patient was brought into the operating room placed on the OR table in supine position. 2 g of Ancef IV. General anesthesia was administered. The patient was repositioned into lithotomy position, prepped and draped in the usual sterile fashion. Time-out was done per protocol. 2 urojet placed. The 22 FR cystoscope was passed transurethrally into the bladder. Visualization of the bladder noted erythematous flattened bladder tumor right lateral wall length approximately 2-3 cm. No active bleeding noted. The flexible biopsy forceps was used to obtain random bladder biopsies from the posterior wall and left lateral wall. The flexible biopsy foceps was used to obtain biopsies from the bladder lesion right lateral wall. The 24 fr resectoscope was placed transurethrally and the bladder lesion was further resected to obtain tissue to send to pathology for evaluation, hemostasis was obtained. Once there was good hemostasis, the resectoscope was removed and the patient was was brought out of anesthesia and taken to recovery in stable condition. Complications: None Drains: none
[2023-04-29 17:01] VITALS: BP 158/74; PULSE 61; RESP 16; TEMP 36.4; O2SAT 97
== END 2023-04-29 17:18 | disposition home or self-care (01) ==
PROVIDERS: PCP Internal Medicine; Visit Provider Urology
PROC: 0TBB8ZZ Excision of Bladder, Via Natural or Artificial Opening Endoscopic (ICD-10-PCS; CPT 52235; principal; 2023-04-29 13:30)
DX: N30.20 Other chronic cystitis without hematuria (principal); D49.4 Neoplasm of unspecified behavior of bladder; Z87.440 Personal history of urinary (tract) infections; E55.9 Vitamin D deficiency, unspecified; D64.9 Anemia, unspecified; E78.00 Pure hypercholesterolemia, unspecified; K27.9 Peptic ulcer, site unspecified, unspecified as acute or chronic, without hemorrhage or perforation; E46 Unspecified protein-calorie malnutrition; G90.50 Complex regional pain syndrome I, unspecified; G62.9 Polyneuropathy, unspecified; J44.9 Chronic obstructive pulmonary disease, unspecified; I10 Essential (primary) hypertension; I73.9 Peripheral vascular disease, unspecified; R73.02 Impaired glucose tolerance (oral); G47.33 Obstructive sleep apnea (adult) (pediatric); Z79.899 Other long term (current) drug therapy; Z88.2 Allergy status to sulfonamides; Z88.5 Allergy status to narcotic agent; Z98.84 Bariatric surgery status; Z90.49 Acquired absence of other specified parts of digestive tract; Z98.890 Other specified postprocedural states; Z87.891 Personal history of nicotine dependence
CPT/HCPCS: 52235; 52204; 88305; J0690; J1100; J2250; J2405; J2704; J3010

== ENCOUNTER → 2023-04-29 11:48 | Outpatient (BNV) | payer OTHER, SELFPAY | PROVIDERS: PCP Internal Medicine; Visit Provider Urology | DX: N32.9 Bladder disorder, unspecified (principal); N39.0 Urinary tract infection, site not specified | CPT/HCPCS: 52235 ==

== ENCOUNTER 2023-05-07 11:11 | Outpatient (AMB) | payer OTHER, SELFPAY ==
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
== END 2023-05-07 16:04 | disposition home or self-care (01) ==
PROVIDERS: PCP Internal Medicine; Visit Provider Counselor Mental Health
DX: F50.81 Binge eating disorder (principal); Z98.84 Bariatric surgery status
CPT/HCPCS: 90834

== ENCOUNTER → 2023-05-07 11:11 | Outpatient (BNVA) | payer OTHER, SELFPAY | PROVIDERS: PCP Internal Medicine; Visit Provider Counselor Mental Health ==

== ENCOUNTER 2023-05-23 12:54 | Outpatient (AMB) | payer OTHER, SELFPAY ==
--- NOTE | 2023-05-23 13:05 | MHC.OFFVIS ---
Intake Intake Visit Reasons: S/P OR cysto w TURBT/bladder bx Intake Note: Patient is Present for Post-OP Cystoscopy Urology Med: Myrbetriq, Methenamine, Antibiotic Allergy: Sulfa, Blood Thinner: None Financial Aid Director Required: No Accompanied by: Self / Same As Patient Allergies hydrochlorothiazide [HYDROCHLOROTHIAZIDE] Allergy (Severe, Verified 05/23/23 13:13) ANGIOEDEMA lisinopril [LISINOPRIL] Allergy (Severe, Verified 05/23/23 13:13) ANGIOEDEMA Sulfa (Sulfonamide Antibiotics) [SULFA (SULFONAMIDE ANTIBIOTICS)] Allergy (Severe, Verified 05/23/23 13:13) FACIAL SWELLING iron [IRON] Allergy (Intermediate, Verified 05/23/23 13:13) NAUSEA lactose [LACTOSE] Allergy (Intermediate, Verified 05/23/23 13:13) DIARRHEA sertraline [From ZOLOFT] Allergy (Intermediate, Verified 05/23/23 13:13) INSOMNIA codeine Allergy (Unknown, Verified 05/23/23 13:13) Unknown lobster Allergy (Uncoded 05/23/23 13:13) Anaphylaxis HPI HPI Comments History of Present Illness Details María is here for follow-up post cystoscopy bladder biopsy on 04/29/2023. María is a very pleasant 72 [address] Dr[address] Nicole. She has a past medical history of binge eating disorder, osteoarthritis, overweight, degenerative disc disease, obesity, peptic ulcer disease, esophageal stricture, vitamin-D deficiency, peripheral neuropathy, GERD, hypercholesteremia, peripheral vascular disease, OMID, hemorrhoids, and COPD. The patient has been seen by the nurse practitioner for recurrent UTIs and was referred to me for office cystoscopy--which noted flattened erythematous lesion right lateral wall > 2 cm--to <5 cm. The patient is status post bladder biopsy on 04/29/2023 I have reviewed path results which are consistent with cystitis in malignant or atypical cells noted. Review of chart: LV - 04/08/23 with CHEIKH Oh for recurrent urinary tract infections. Previous workup has included a retroperitoneal ultrasound noting nonobstructive echogenic stone lower pole right kidney. Left kidney is unremarkable. She has a past medical history of mesh being inserted with as well as InterStim however InterStim was removed related to infection. She reports having a cystocele and rectocele repair with Dr. Ayers in the past. Patient also reports having performed pelvic therapy in the past as well. Review of meds: Estrace cream as prescribed, methenamine ,vitamin-C, and Myrbetriq D-mannose over the contact. 05/23/23---Plan: Continue follow-up with Loyd Oh in 3 months [facility] Medical History (Updated 05/23/23 @ 14:00 by Asif Paz MD) Nephrolithiasis UTI (urinary tract infection) Annual physical exam Protein deficiency Ventral hernia Binge-eating disorder, moderate Osteoarthritis of knees, bilateral Overweight BMI 25.0-25.9,adult Degenerative disc disease, cervical Spondylosis of cervical spine Obesity (BMI 30-39.9) Peptic ulcer disease Esophageal stricture Vitamin D deficiency Peripheral neuropathy GERD (gastroesophageal reflux disease) Hypercholesterolemia RSD (reflex sympathetic dystrophy) Peripheral vascular disease Anemia Small bowel obstruction Osteopenia History of esophageal dilatation Tubular adenoma of colon Obstructive sleep apnea Hypertension Hemorrhoids Deviated septum Impaired glucose tolerance History of duodenal ulcer Osteoarthritis of knees, bilateral COPD (chronic obstructive pulmonary disease) Surgical History Cystocele History of repair of hiatal hernia Hx of gastric bypass History of arthroscopy of left knee History of umbilical hernia repair History of tubal ligation History of hemorrhoidectomy History of nasal surgery History of tonsillectomy History of cholecystectomy Family History Father No problems noted. Mother No problems noted. Daughter Psoriatic arthritis Social History Housing: Apartment Alcohol intake: former Comment: pressure Patient Tobacco Use Status: Former Tobacco user Tobacco use type: Cigarette e-Cigarette/Vaping Use: Never Used Second Hand Smoke Exposure: No service: No Current occupational status: retired Gender identity: Female Cognitive needs: No Hearing needs: No Vision needs: Yes (glasses) Female Reproductive History Menstrual Age of Menarche: 10 Review of Systems Const Reports as per HPI Eyes Reports no additional complaints ENT Reports no additional complaints Card Reports as per HPI Resp Reports as per HPI GI Reports as per HPI Reports as per HPI Musc Reports as per HPI Psych Reports as per HPI Endo Reports no additional complaints Gold/Lymph Reports no additional complaints Aller/Immun Reports no additional complaints Results AMB Urinalysis, Automated UA Leukoctes 500 Walt/uL Last Edit by FACUNDO Zabala on 05/23/23 13:22 3+ Boris Reid 05/23/23 13:22 UA Nitrite Negative Last Edit by Boris Reid, A on 05/23/23 13:22 UA Urobilinogen 0.2 mg/dL Last Edit by Boris Reid A on 05/23/23 13:22 UA Protein 15 mg/dL Last Edit by Boris Reid, A on 05/23/23 13:22 UA pH 5.5 Last Edit by Boris Reid [facility] on 05/23/23 13:22 UA Blood 80 Bo/uL Last Edit by Boris Reid A on 05/23/23 13:22 2+ Boris Reid 05/23/23 13:22 UA Specific Wharton 1.030 Last Edit by Boris Reid [facility] on 05/23/23 13:22 UA Ketone Negative Last Edit by Boris Reid [facility] on 05/23/23 13:22 UA Bilirubin 1 mg/dL Last Edit by Boris Reid [facility] on 05/23/23 13:22 1+ Boris Reid 05/23/23 13:22 UA Glucose 0 mg/dL Last Edit by Boris Reid [facility] on 05/23/23 13:22 Results Reviewed Results Reviewed: Laboratory Last Values Urine pH (Auto) 5.5 05/23/23 13:21 Specific Wharton (Auto) 1.030 05/23/23 13:21 Urine Protein (Auto) 15 mg/dL 05/23/23 13:21 Glucose (UA)(Auto) 0 mg/dL 05/23/23 13:21 Urine Ketones (Auto) Negative 05/23/23 13:21 Urine Blood (Auto) 80 Bo/uL 05/23/23 13:21 Urine Nitrite (Auto) Negative 05/23/23 13:21 Urine Bilirubin (Auto) 1 mg/dL 05/23/23 13:21 Urine Urobilinogen (Auto) 0.2 mg/dL 05/23/23 13:21 Leukocyte Esterase (Auto) 500 Walt/uL 05/23/23 13:21 Collected: 04/29/23 Location: [facility] Received: 04/30/23 Diagnosis A. Bladder, random posterior wall, biopsy: Mild chronic cystitis with reactive changes; muscularis propria present. B. Bladder, left lateral wall, biopsy: Mild chronic cystitis with reactive changes; detached fragments of bland smooth muscle consistent with muscularis propria,. C. Bladder, right side lesion, biopsy: Inflamed urothelial mucosa with granulation tissue formation, largely denuded epithelium and vascular congestion; muscularis propria present. D. Bladder, right wall lesion, biopsy: Inflamed urothelial mucosa with granulation tissue formation, largely denuded epithelium and vascular congestion; muscularis propria present. COMMENT: Multiple additional levels are examined on C and D. Clinical History Bladder resection, cystoscopy, bladder tumor Microscopic Description A-D. Microscopic sections reviewed. Material Received A. Random biopsy posterior wall B. Left lateral C. Bladder lesion right side D. Right bladder wall lesion Assessment & Plan Assessment & Plan (1) Recurrent urinary tract infection: Code(s): N39.0 - Urinary tract infection, site not specified (2) Cystitis: Code(s): N30.90 - Cystitis, unspecified without hematuria (3) Urinary frequency: Code(s): R35.0 - Frequency of micturition (4) Nephrolithiasis: Code(s): N20.0 - Calculus of kidney Plan Continue follow-up with Loyd Oh in 3 months Orders: Orders AMB Urinalysis Automated Today Z13.9 - Encounter for screening, unspecified Patient Instructions: The patient had an opportunity to ask questions regarding treatment plan. All questions were answered. Imaging, Laboratory studies and physical exam results were discussed and reviewed in detail. No major barriers to understanding were identified. The patient expressed understanding and agreement with the above treatment plan. The patient is aware they should contact our office by phone for worsening of their current condition or the appearance of new symptoms. Compliance is encouraged with any medications and followup testing that is ordered. It is a privilege to be allowed the opportunity to participate in the urologic care of your patient. If you have any questions or concerns regarding treatment for the above conditions please do not hesitate to contact me. The office telephone contact is [phone]. This note is constructed in part using voice recognition software. While every effort has been made to ensure accuracy lead java software engineer errors may have been included. Yours sincerely, Asif Paz MD Coding Level of Care Code Est Pt Level 4 (59545) Diagnoses Recurrent urinary tract infection N39.0 Cystitis N30.90 Urinary frequency R35.0 Nephrolithiasis N20.0
== END 2023-05-23 13:56 | disposition home or self-care (01) ==
PROVIDERS: PCP Internal Medicine; Visit Provider Urology
DX: N39.0 Urinary tract infection, site not specified (principal); N30.90 Cystitis, unspecified without hematuria; R35.0 Frequency of micturition; N20.0 Calculus of kidney; Z13.9 Encounter for screening, unspecified
CPT/HCPCS: 99214

== ENCOUNTER → 2023-05-23 12:54 | Outpatient (BNVA) | payer OTHER, SELFPAY | PROVIDERS: PCP Internal Medicine; Visit Provider Urology | DX: N30.90 Cystitis, unspecified without hematuria (principal); R35.0 Frequency of micturition; N20.0 Calculus of kidney | CPT/HCPCS: 81003; 99212 ==

== ENCOUNTER 2023-05-29 12:17 | Outpatient (AMB) | payer OTHER, SELFPAY ==
--- NOTE | 2023-05-29 12:32 | MHC.PC.OV ---
Vital Signs 05/29/23 12:33 Height 5 ft 1 in Weight 140 lb BMI 26.4 BP 148/74 H Blood Pressure Location Lt brachial Position Sitting Pulse 64 Pulse Source Pulse Oximeter Pulse Oximetry (%) 98 Oxygen Delivery Method Room Air Intake Visit Reasons: Physical exam Intake Note: Patient is here today for a physical. Allergies hydrochlorothiazide [HYDROCHLOROTHIAZIDE] Allergy (Severe, Verified 05/29/23 12:33) ANGIOEDEMA lisinopril [LISINOPRIL] Allergy (Severe, Verified 05/29/23 12:33) ANGIOEDEMA Sulfa (Sulfonamide Antibiotics) [SULFA (SULFONAMIDE ANTIBIOTICS)] Allergy (Severe, Verified 05/29/23 12:33) FACIAL SWELLING iron [IRON] Allergy (Intermediate, Verified 05/29/23 12:33) NAUSEA lactose [LACTOSE] Allergy (Intermediate, Verified 05/29/23 12:33) DIARRHEA sertraline [From ZOLOFT] Allergy (Intermediate, Verified 05/29/23 12:33) INSOMNIA codeine Allergy (Unknown, Verified 05/29/23 12:33) Unknown lobster Allergy (Uncoded 05/29/23 12:33) Anaphylaxis Medication List - Last Reconciled 05/29/23 by Dwight Nicole MD amlodipine 5 mg PO DAILY ascorbic acid (vitamin C) 1 g PO DAILY 90 days calcium citrate-vitamin D3 315 mg-6.25 mcg (250 unit) 1 tab PO DAILY cetirizine 10 mg PO DAILY PRN cholecalciferol (vitamin D3) (Vitamin D3) 50 mcg PO DAILY diclofenac sodium 1% 4 grams topical QID PRN 90 days dicyclomine 10 - 20 mg PO Q6H PRN epinephrine IM estradiol 0.01%(0.1mg/gram) vaginally daily; pea sized amount to urethra 30 days famotidine 20 mg PO DAILY folic acid 1 mg PO DAILY ipratropium bromide 1 spray intranasal TID PRN ketoconazole 2% appl topical BID methenamine hippurate 1 g PO DAILY 90 days methotrexate sodium 15 mg PO QWEEK mirabegron ER (Myrbetriq) 50 mg PO DAILY 90 days oikycppvsmfo-ugn-nokb-FA-vit K 45 mg iron- 800 mcg-120 mcg (Bariatric Multivitamins) 1 cap PO DAILY pregabalin (Lyrica) 50 mg PO BID tizanidine 4 mg PO Q8H PRN trazodone 50 mg PO BEDTIME PRN Tobacco use date assessed: 05/29/23 Fall risk assessment: No Falls in past year Last assessed Fall Risk: 05/29/23 Dental Screening Dental Screen Date: 05/29/23 Did you have a dental visit in the last 12 months?: No Did you have a dental problem in the last 6 months where you did not have access to dental care?: No HPI Physical exam HPI Details 72-year-old female with a history of COPD bilateral knee osteoarthritis hypertension hypercholesterolemia GERD history of gastric bypass RSD peripheral vascular disease rheumatoid arthritis coming in for follow-up. Last seen in December 2022. Patient's colonoscopy declined 2018 bone density is up-to-date with osteoporosis declined mammogram. Review of the notes follows up with urology post cystoscopy bladder biopsy April 2023 recurrent UTI cystitis in malignant or atypical cells noted history of nephrolithiasis has had InterStim placed in and removal history of cystocele and rectocele repair. Review of the bladder biopsy results negative. dysphagia will need to see [facility] Medical History (Updated 05/29/23 @ 13:03 by Dwight Nicole MD) Annual physical exam Nephrolithiasis UTI (urinary tract infection) Annual physical exam Protein deficiency Ventral hernia Binge-eating disorder, moderate Osteoarthritis of knees, bilateral Overweight BMI 25.0-25.9,adult Degenerative disc disease, cervical Spondylosis of cervical spine Obesity (BMI 30-39.9) Peptic ulcer disease Esophageal stricture Vitamin D deficiency Peripheral neuropathy GERD (gastroesophageal reflux disease) Hypercholesterolemia RSD (reflex sympathetic dystrophy) Peripheral vascular disease Anemia Small bowel obstruction Osteopenia History of esophageal dilatation Tubular adenoma of colon Obstructive sleep apnea Hypertension Hemorrhoids Deviated septum Impaired glucose tolerance History of duodenal ulcer Osteoarthritis of knees, bilateral COPD (chronic obstructive pulmonary disease) Surgical History Cystocele History of repair of hiatal hernia Hx of gastric bypass History of arthroscopy of left knee History of umbilical hernia repair History of tubal ligation History of hemorrhoidectomy History of nasal surgery History of tonsillectomy History of cholecystectomy Family History Father No problems noted. Mother No problems noted. Daughter Psoriatic arthritis Social History Housing: Apartment Alcohol intake: former Comment: pressure Patient Tobacco Use Status: Former Tobacco user Tobacco use type: Cigarette e-Cigarette/Vaping Use: Never Used Second Hand Smoke Exposure: No service: No Current occupational status: retired Gender identity: Female Cognitive needs: No Hearing needs: No Vision needs: Yes (glasses) Female Reproductive History Menstrual Age of Menarche: 10 Questionnaire PHQ-9 Over the last 2 weeks, how often have you been bothered by any of the following problems? 1. Little interest or pleasure in doing things: not at all 2. Feeling down, depressed, or hopeless: not at all 3. Trouble falling or staying asleep, or sleeping too much: not at all 4. Feeling tired or having little energy: not at all 5. Poor appetite or overeating: not at all 6. Feeling bad about yourself - or that you are a failure or have let yourself or your family down: not at all 7. Trouble concentrating on things, such as reading the newspaper or watching television: not at all 8. Moving or speaking so slowly that other people could have noticed. Or the opposite - being so fidgety or restless that you have been moving around a lot more than usual: not at all 9. Thoughts that you would be better off or of hurting yourself in some way: not at all Total score: 0 Depression Screening Interpretation: Negative Depression Screening Done: Yes Source: Developed by Drs. Jordan Elise, Sherri Loo, David Ross and colleagues, with an educational edna from [employer]. Thrive Questionnaire Date Thrive assessed: 10/22/22 AUDIT C Alcohol Use Questionnaire (AUDIT-C) 1. How often do you have a drink containing alcohol?: Never 3. How often do you have six or more drinks on one occasion?: Never Total Score: 0 JOSE ARMANDO-7 AMB Questionnaire JOSE ARMANDO-7 Date JOSE ARMANDO - 7 assessed: 05/29/23 Feeling nervous, anxious, or on edge: 0 = Not at all Not being able to stop or control worryin = Not at all Worrying too much about different things: 0 = Not at all Trouble relaxin = Not at all Being so restless that it is hard to sit still: 0 = Not at all Becoming easily annoyed or irritable: 0 = Not at all Feeling afraid as if something awful might happen: 0 = Not at all Total JOSE ARMANDO-7 score (0-4 normal; 5-9 mild; 10-14 moderate; 15-21 severe): 0 Source: Developed by Drs. Jordan Elise, Sherri Loo, David Ross and colleagues, with an educational edna from [employer]. Review of Systems Const Denies poor appetite and Denies weakness Eyes Denies no additional complaints ENT Reports Normal hearing present, Denies dizziness, Denies nasal congestion, Denies tinnitus and Denies sore throat Card Denies chest pain, Denies syncope, Denies rapid heart rate and Denies dyspnea Resp Denies cough and Denies dyspnea GI Denies change in stool character, Reports constipation, Denies diarrhea, Denies nausea and Denies vomiting Denies urinary frequency, Denies difficulty voiding and Denies dysuria Neuro Reports Normal hearing present, Denies confusion, Denies dizziness, Denies syncope and Denies weakness Psych Denies confusion Physical exam (Primary Care) Vital Signs: Last Vital Signs Pulse 64 05/29/23 12:33 BP 148/74 H 05/29/23 12:33 Pulse Ox 98 05/29/23 12:33 Oxygen Delivery Method Room Air 05/29/23 12:33 BMI result Body Mass Index 26.4 Tobacco/Smoking Status: Tobacco use Status Tobacco use date assessed 05/29/23 05/29/23 12:34 Patient Tobacco Use Status Former Tobacco user 05/29/23 12:34 Tobacco use type Cigarette 05/29/23 12:34 e-Cigarette/Vaping Use Never Used 05/29/23 12:34 PHQ-9: PHQ-9 Score PHQ-9: Total score 0 05/29/23 12:34 Depression Screening Interpretation: Negative Thrive Assessment: Date of Thrive Assessment Date Thrive assessed 10/22/22 05/29/23 12:34 Const General: No confusion Orientation/consciousness: No confusion HENMT Head: Yes normocephalic Ears: external ears normal and TM's normal bilaterally Face and sinus: Yes normal facial exam Mouth: moist mucous membranes Throat: Yes tonsils normal Eyes Conjunctivae: conjunctivae normal Pupils: Equal, round and reactive pupils present and Pupil accommodation reflex normal Direct Ophthalmoscopy: normal light reflex Neck Neck: No lymphadenopathy Thyroid: Thyroid normal Chest Chest palpation & inspection: normal inspection of the chest Resp Effort & Inspection: normal respiratory effort and no audible wheezes Auscultation: clear to auscultation bilaterally, no crackles, no wheezes and lung sounds not diminished Cardio Rate: regular rate Rhythm: regular rhythm Peripheral pulses: radial pulses present and dorsalis pedis present GI Palpation (GI): no masses Auscultation: normal bowel sounds and normoactive bowel sounds Rectal Exam - Female: deferred Skin General skin exam: no rashes or lesions noted Rashes: no rashes Neuro General: No confusion Cranial nerves: Yes Equal, round and reactive pupils present and Yes Normal hearing present Cognition (Neuro): normal cognition Gait exam (Neuro): Normal gait present Motor exam (neuro): 5/5 motor strength present throughout Deep tendon reflexes (DTR's): Right brachioradialis reflex intensity grade: 2+, Left brachioradialis reflex intensity grade: 2+, Right patellar reflex intensity grade: 2+ and Left patellar reflex intensity grade: 2+ Extrem General: No edema Assessment and Plan Assessment & Plan (1) Annual physical exam: Code(s): Z00.00 - Encounter for general adult medical examination without abnormal findings (2) Nephrolithiasis: Code(s): N20.0 - Calculus of kidney Plan: Keep well hydrated (3) Rheumatoid arthritis: Comment: -ve RF++CCP dx 2018 MTX 2018 briefly Code(s): M06.9 - Rheumatoid arthritis, unspecified Qualifiers: Rheumatoid arthritis location: multiple sites Rheumatoid factor presence: without rheumatoid factor Qualified Code(s): M06.09 - Rheumatoid arthritis without rheumatoid factor, multiple sites Plan: Continue to follow-up with Rheumatology (4) COPD (chronic obstructive pulmonary disease): Comment: PFT July 2019 normal Code(s): J44.9 - Chronic obstructive pulmonary disease, unspecified Qualifiers: COPD type: emphysema Emphysema type: panlobular Qualified Code(s): J43.1 - Panlobular emphysema Plan: Stable (5) Osteoarthritis of knees, bilateral: Code(s): M17.0 - Bilateral primary osteoarthritis of knee Plan: Patient has lost a lot a weight keep active (6) Hypertension: Comment: Stress test nuclear October 2012 normal Code(s): I10 - Essential (primary) hypertension Qualifiers: Hypertension type: essential hypertension Qualified Code(s): I10 - Essential (primary) hypertension Plan: Patient's blood pressure has come back to normal after loss of weight (7) Hypercholesterolemia: Code(s): E78.00 - Pure hypercholesterolemia, unspecified Plan: Continue to monitor (8) GERD (gastroesophageal reflux disease): Code(s): K21.9 - Gastro-esophageal reflux disease without esophagitis Plan: Avoid the foods that causes that usually spicy foods, tomato products, juices, coffee, soda and foods that your sensitive to. After eating do not lie down, allow 3-4 hours before in lie down. And keep the head of bed above 30 degrees to avoid the acid from going up. (9) Hx of gastric bypass: Comment: January 2019 Code(s): Z98.84 - Bariatric surgery status Plan: Follow-up with bariatric surgeon (10) RSD (reflex sympathetic dystrophy): Comment: Right arm, knee and bilateral leg and right foot pain Upper and lower limbs Code(s): G90.50 - Complex regional pain syndrome I, unspecified Plan: Keep active presently on Lyrica (11) Dysphagia: Code(s): R13.10 - Dysphagia, unspecified Plan: patient sees GI Medications: New amlodipine 5 mg PO DAILY 30 tabs 3RF I10 - Essential (primary) hypertension Refilled diclofenac sodium 1% 4 grams topical QID 90 days PRN 3 ea 12RF Pain M17.0 - Bilateral primary osteoarthritis of knee Coding Level of Care Code Est Pt Prev Care >65y(40849) Diagnoses Annual physical exam Z00.00 Nephrolithiasis N20.0 Rheumatoid arthritis of multiple sites with negative rheumatoid factor M06.09 Rheumatoid arthritis location: multiple sites Rheumatoid factor presence: without rheumatoid factor Panlobular emphysema J43.1 COPD type: emphysema Emphysema type: panlobular Osteoarthritis of knees, bilateral M17.0 Essential hypertension I10 Hypertension type: essential hypertension Hypercholesterolemia E78.00 GERD (gastroesophageal reflux disease) K21.9 Hx of gastric bypass Z98.84 RSD (reflex sympathetic dystrophy) G90.50 Dysphagia R13.10
[2023-05-29 12:33] VITALS: BP 148/74; PULSE 64; O2SAT 98; BMI 26.4
== END 2023-05-29 13:20 | disposition home or self-care (01) ==
PROVIDERS: Visit Provider Internal Medicine
DX: Z00.00 Encounter for general adult medical examination without abnormal findings (principal); N20.0 Calculus of kidney; M06.09 Rheumatoid arthritis without rheumatoid factor, multiple sites; J43.1 Panlobular emphysema; M17.0 Bilateral primary osteoarthritis of knee; I10 Essential (primary) hypertension; E78.00 Pure hypercholesterolemia, unspecified; K21.9 Gastro-esophageal reflux disease without esophagitis; Z98.84 Bariatric surgery status; G90.50 Complex regional pain syndrome I, unspecified; R13.10 Dysphagia, unspecified
CPT/HCPCS: 99397

== ENCOUNTER 2023-06-04 16:36 | Outpatient (REF) | payer OTHER, SELFPAY ==
[2023-06-04 16:45] LABS: MANUAL DIFF FLAG NO
[2023-06-04 17:49] LABS: Basophils Percent Auto 0.4 % (0-2); Eosinophils Absolute Auto 0.1 X10*3/uL (0.0-0.4); Eosinophils Percent Auto 2.4 % (0-4); Hematocrit 37.1 % (37.0-47.0); Hemoglobin 11.9 g/dl (12.0-16.0); Imm Gran Abs Auto 0.01 X10*3/uL (0.00-0.03); Imm Gran Pct Auto 0.2 % (0.0-0.4); Lymphocytes Absolute Auto 1.8 X10*3/uL (1.2-4.9); Lymphocytes Percent Auto 36.4 % (20-40); Mean Corpuscular HGB Conc 32.1 g/dl (31.0-35.0); Mean Corpuscular Hemoglobin 30.3 pg (27.0-33.0); Mean Corpuscular Volume 94.4 fL (80.0-98.0); Mean Platelet Volume 11.3 fL (9.4-12.3); Monocytes Absolute Auto 0.5 X10*3/uL (0.1-1.2); Monocytes Percent Auto 10.1 % (2-11); Neutrophils Absolute Auto 2.6 x10*3/uL (2.0-8.3); Neutrophils Percent Auto 50.5 % (45-73); Platelet Count 209 X10*3/uL (160-400); Red Blood Count 3.93 X10*6/uL (4.20-5.50); White Blood Count 5.1 X10*3/uL (4.8-10.8)
[2023-06-04 18:16] LABS: Alanine Aminotransferase 18 U/L (0-31); Albumin Level 4.1 g/dL (3.5-5.0); Alkaline Phosphatase 127 U/L (39-117); Anion Gap 14 (12-20); Aspartate Amino Transferase 21 U/L (5-31); Bilirubin Total 0.3 mg/dL (0.0-1.0); Blood Urea Nitrogen 20 mg/dL (9-16); C Reactive Protein < 0.10 mg/dL (< or = 0.50); Calcium 9.2 mg/dL (8.4-10.2); Carbon Dioxide 28 mmol/L (22-29); Chloride 108 mmol/L (96-108); Estimated Glomerular Filt Rate > 60; Glucose Random 90 mg/dL (60-115); Potassium 4.6 mmol/L (3.3-5.1); Sodium 145 mmol/L (135-145); Total Protein 6.7 g/dL (6.5-8.0)
[2023-06-04 19:01] LABS: Erythrocyte Sedimentation Rate 11 MM/HR (0-20)
== END 2023-06-04 16:37 | disposition home or self-care (01) ==
LOC: HO.LAB 16:36
PROVIDERS: PCP Internal Medicine; Visit Provider Student in an Organized Health Care Education/Training Program
DX: M06.9 Rheumatoid arthritis, unspecified (principal)
CPT/HCPCS: 36415; 80053; 85025; 85652; 86140

== ENCOUNTER 2023-06-09 09:17 | Outpatient (AMB) | payer OTHER, SELFPAY ==
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
== END 2023-06-09 16:49 | disposition home or self-care (01) ==
PROVIDERS: PCP Internal Medicine; Visit Provider Counselor Mental Health
DX: F50.81 Binge eating disorder (principal); Z98.84 Bariatric surgery status
CPT/HCPCS: 90834

== ENCOUNTER → 2023-06-09 09:17 | Outpatient (BNVA) | payer OTHER, SELFPAY | PROVIDERS: PCP Internal Medicine; Visit Provider Counselor Mental Health ==

== ENCOUNTER 2023-06-10 09:24 | Outpatient (AMB) | payer OTHER, SELFPAY ==
[2023-06-10 09:28] VITALS: BP 144/86; PULSE 69; TEMP 35.9; O2SAT 96; BMI 26.0
--- NOTE | 2023-06-10 09:28 | MHC.OFFVIS ---
Intake Vital Signs 06/10/23 09:28 Height 5 ft 1 in Weight 137 lb 9.095 oz BMI 26.0 BP 144/86 H Blood Pressure Location Rt brachial Position Sitting Pulse 69 Pulse Source Pulse Oximeter Temp 96.7 F L Temp Source Skin Pulse Oximetry (%) 96 Oxygen Delivery Method Room Air Intake Visit Reasons: RA Intake Note: Pt last seen 04/04/23 presents today for follow up and test results. States she is having trouble opening doors; reports bladder biopsy with Dr Chandra. States she has something in her eyes follows with Dr Ordaz and will be seeing retina specialist soon. Muffler Hand Required: No Accompanied by: Self / Same As Patient Allergies hydrochlorothiazide [HYDROCHLOROTHIAZIDE] Allergy (Severe, Verified 06/10/23 09:34) ANGIOEDEMA lisinopril [LISINOPRIL] Allergy (Severe, Verified 06/10/23 09:34) ANGIOEDEMA Sulfa (Sulfonamide Antibiotics) [SULFA (SULFONAMIDE ANTIBIOTICS)] Allergy (Severe, Verified 06/10/23 09:34) FACIAL SWELLING iron [IRON] Allergy (Intermediate, Verified 06/10/23 09:34) NAUSEA lactose [LACTOSE] Allergy (Intermediate, Verified 06/10/23 09:34) DIARRHEA sertraline [From ZOLOFT] Allergy (Intermediate, Verified 06/10/23 09:34) INSOMNIA codeine Allergy (Unknown, Verified 06/10/23 09:34) Unknown lobster Allergy (Uncoded 06/10/23 09:34) Anaphylaxis Medication List - Last Reconciled 06/10/23 by Fermin Lozada MD amlodipine 5 mg PO DAILY ascorbic acid (vitamin C) 1 g PO DAILY 90 days calcium citrate-vitamin D3 315 mg-6.25 mcg (250 unit) 1 tab PO DAILY cetirizine 10 mg PO DAILY PRN cholecalciferol (vitamin D3) (Vitamin D3) 50 mcg PO DAILY diclofenac sodium 1% 4 grams topical QID PRN 90 days dicyclomine 10 - 20 mg PO Q6H PRN epinephrine IM estradiol 0.01%(0.1mg/gram) vaginally daily; pea sized amount to urethra 30 days famotidine 20 mg PO DAILY folic acid 1 mg PO DAILY ipratropium bromide 1 spray intranasal TID PRN ketoconazole 2% appl topical BID methenamine hippurate 1 g PO DAILY 90 days methotrexate sodium 15 mg (6 x 2.5 mg) PO QWEEK mirabegron ER (Myrbetriq) 50 mg PO DAILY 90 days lbpliwslpfgb-wqh-edgu-FA-vit K 45 mg iron- 800 mcg-120 mcg (Bariatric Multivitamins) 1 cap PO DAILY pregabalin (Lyrica) 50 mg PO BID tizanidine 4 mg PO Q8H PRN trazodone 50 mg PO BEDTIME PRN HPI HPI Comments History of Present Illness Details 72-year-old female with seropositive RA returns for follow-up. She has been taking methotrexate 15 mg weekly for the last 2 months. She can not tell whether it is helping her. She feels generalized fatigue. The fatigue is all the time, it's not particularly worse the day after she takes methotrexate. She has been having more joint pain. She has difficultly grabbing door knobs. She is having stiffness and triggering of her right middle finger. She is also having pain at the base of both thumbs. She continues to have right toes pain and pain on the dorsal aspect of her left foot. Initial history: This is a 72-year-old female who presents for evaluation of rheumatoid arthritis. In 2018 she was evaluated by Dr. Isaacs for bilateral knee pain and elevated ESR. Labs showed negative EROS/RF but showed moderately positive anti CCP. She was diagnosed with rheumatoid arthritis. She was started on methotrexate weekly. A bilateral hand ultrasound was unremarkable. Patient was not convinced that she had rheumatoid arthritis and stopped the methotrexate. Patient states that her daughter has psoriasis and psoriatic arthritis. She is unaware of any other family history of an autoimmune rheumatic disease. Over the last few months patient noted that she has been having bilateral hand stiffness, worse in the morning, lasting 30 minutes to 1 hour. She has difficulty making a full fist but no significant pain. The her right middle finger is painful. Over the last year she has been having bilateral foot pain. She went to urgent care once for left ankle and foot pain, there was no trauma preceding this. She states that she has had bilateral severe knee osteoarthritis and she is planned for bilateral knee replacements. She denies any history of Raynaud's. He denies any history of DVT/PE. In 2019 patient had a gastric bypass and has lost 200 lb. 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 she was eventually diagnosed with RSD of her right hand and right lower extremity. She was eventually referred to pain management and received a ganglion block but it was ineffective. Per patient it was too late. [facility] Medical History Annual physical exam Nephrolithiasis UTI (urinary tract infection) Annual physical exam Protein deficiency Ventral hernia Binge-eating disorder, moderate Osteoarthritis of knees, bilateral Overweight BMI 25.0-25.9,adult Degenerative disc disease, cervical Spondylosis of cervical spine Obesity (BMI 30-39.9) Peptic ulcer disease Esophageal stricture Vitamin D deficiency Peripheral neuropathy GERD (gastroesophageal reflux disease) Hypercholesterolemia RSD (reflex sympathetic dystrophy) Peripheral vascular disease Anemia Small bowel obstruction Osteopenia History of esophageal dilatation Tubular adenoma of colon Obstructive sleep apnea Hypertension Hemorrhoids Deviated septum Impaired glucose tolerance History of duodenal ulcer Osteoarthritis of knees, bilateral COPD (chronic obstructive pulmonary disease) Surgical History Cystocele History of repair of hiatal hernia Hx of gastric bypass History of arthroscopy of left knee History of umbilical hernia repair History of tubal ligation History of hemorrhoidectomy History of nasal surgery History of tonsillectomy History of cholecystectomy Family History Father No problems noted. Mother No problems noted. Daughter Psoriatic arthritis Social History Housing: Apartment Alcohol intake: former Comment: pressure Patient Tobacco Use Status: Former Tobacco user Tobacco use type: Cigarette e-Cigarette/Vaping Use: Never Used Second Hand Smoke Exposure: No service: No Current occupational status: retired Gender identity: Female Cognitive needs: No Hearing needs: No Vision needs: Yes (glasses) Female Reproductive History Menstrual Age of Menarche: 10 Review of Systems Const Reports fatigue and Reports weakness Musc Reports arthralgias and Reports stiffness Neuro Reports weakness Endo Reports fatigue Physical Exam Vital Signs: Last Vital Signs Temp 96.7 F L 06/10/23 09:28 Pulse 69 06/10/23 09:28 BP 144/86 H 06/10/23 09:28 Pulse Ox 96 06/10/23 09:28 Oxygen Delivery Method Room Air 06/10/23 09:28 BMI result Body Mass Index 26.0 Const General: cooperative, healthy appearing and comfortable Nutritional Appearance: overweight Orientation/consciousness: patient oriented x3 Limitations: ambulation with cane HEENT Head: Yes normocephalic and Yes atraumatic Mouth: moist mucous membranes Resp Effort & Inspection: normal respiratory effort and able to speak in complete sentences Auscultation: clear to auscultation bilaterally Cardio Rate: regular rate Rhythm: regular rhythm GI Palpation (GI): Soft to palpation Skin Other: Dry skin on both hands Neuro General: patient oriented x3 Extrem Other: Mildly tender right 3rd PIP without swelling. Negative MCP squeeze test bilaterally Right 3rd finger flexor tendon tenderness Bilateral 1st CMC joint tenderness few tender Heberden's nodes bilaterally No wrist pain with flexion and extension bilateral Negative MCP squeeze test bilaterally Range of motion of both elbows and shoulders without pain Bilateral knee crepitus and pain with flexion Worse on the right Left dorsal foot tenderness Right 1st through 5th MTP tenderness Normal nailfold capillaroscopy Results Reviewed Results Reviewed: Labs in 2018 CCP 46 (moderate positive) EROS/RF negative Assessment & Plan Assessment & Plan (1) Rheumatoid arthritis: Comment: -ve RF++CCP dx 2018 MTX 2018 briefly DC by patient MTX restarted 03/2023 Code(s): M06.9 - Rheumatoid arthritis, unspecified Qualifiers: Rheumatoid arthritis location: multiple sites Rheumatoid factor presence: without rheumatoid factor Qualified Code(s): M06.09 - Rheumatoid arthritis without rheumatoid factor, multiple sites Plan: This is a 72-year-old female with seropositive RA who presents for follow-up. Started methotrexate 15 mg weekly for the last 2 months with fewer tender joints and normalization of CRP. Has been having some fatigue but there is no temporal relationship to methotrexate. Continues to have few tender joints. Increase methotrexate to 20 mg weekly split dose. Continue with folic acid 1 mg daily Advised patient to call the clinic if she develops worsening fatigue and we will consider lowering the methotrexate and starting another DMARD Patient takes dual action Advil regularly twice a day. Advised patient to cut back on Advil, can use Tylenol and use topical Voltaren gel on affected joints Labs before next visit in 3 months (2) Osteoporosis: Code(s): M81.0 - Age-related osteoporosis without current pathological fracture Qualifiers: Osteoporosis type: age-related Presence of current pathological fracture: without current pathological fracture Qualified Code(s): M81.0 - Age-related osteoporosis without current pathological fracture Plan: Recent DEXA scan showed osteoporosis. Patient had wrist fractures. Will need to start anti resorptive therapy. Discussed risks and benefits of bisphosphonates. Patient agreed to proceed. Patient has dentures, she has no teeth. Patient has known history of duodenal ulcer and esophageal strictures, she receives esophageal dilation periodically. Oral bisphosphonates such as alendronate would be contraindicated. Discussed risks and benefits of Reclast. Patient agreed to proceed. Will start prior authorization for Reclast infusions Patient is on calcium and vitamin-D supplementation. Will check vitamin-D level before next visit. Advised patient to consume dairy products. Discussed weight-bearing exercises (3) intermediate card tender methotrexate user: Code(s): Z79.631 - intermediate card tender (current) use of antimetabolite agent Plan: Monitor safety labs (4) Trigger finger, right middle finger: Code(s): M65.331 - Trigger finger, right middle finger Plan: Discussed different treatment options. Such as steroid injection, occupational therapy. Patient is not interested in either Plan I spent 47 minutes reviewing patient's chart, evaluating patient, ordering diagnostic workup, counseling patient and documenting in the chart Medications: Changed From methotrexate sodium Dr. Lozada 15 mg (6 x 2.5 mg) PO QWEEK 72 tabs 0RF I10 - Essential (primary) hypertension To methotrexate sodium Split dose into 4 tabs twice 10 hours apart 20 mg (8 x 2.5 mg) PO QWEEK 96 tabs 0RF I10 - Essential (primary) hypertension Coding Level of Care Code Est Pt Level 5 (49662) Diagnoses Rheumatoid arthritis of multiple sites with negative rheumatoid factor M06.09 Rheumatoid arthritis location: multiple sites Rheumatoid factor presence: without rheumatoid factor Age-related osteoporosis without current pathological fracture M81.0 Osteoporosis type: age-related Presence of current pathological fracture: without current pathological fracture intermediate card tender methotrexate user Z79.631 Trigger finger, right middle finger M65.331
== END 2023-06-10 10:16 | disposition home or self-care (01) ==
PROVIDERS: PCP Internal Medicine; Visit Provider Student in an Organized Health Care Education/Training Program
DX: M06.09 Rheumatoid arthritis without rheumatoid factor, multiple sites (principal); M81.0 Age-related osteoporosis without current pathological fracture; Z79.631 Long term (current) use of antimetabolite agent; M65.331 Trigger finger, right middle finger
CPT/HCPCS: 99215

== ENCOUNTER → 2023-06-10 09:24 | Outpatient (BNVA) | payer OTHER, SELFPAY | PROVIDERS: PCP Internal Medicine; Visit Provider Student in an Organized Health Care Education/Training Program | DX: M05.79 Rheumatoid arthritis with rheumatoid factor of multiple sites without organ or systems involvement (principal); M81.0 Age-related osteoporosis without current pathological fracture; M65.331 Trigger finger, right middle finger; Z79.631 Long term (current) use of antimetabolite agent | CPT/HCPCS: 99212 ==

== ENCOUNTER 2023-06-17 08:49 | Outpatient (AMB) | payer OTHER, SELFPAY ==
--- NOTE | 2023-06-17 09:44 | MHC.AMNUTRGE ---
Intake Intake Visit Reasons: (OV) PO LSG 02/10/19 Allergies hydrochlorothiazide [HYDROCHLOROTHIAZIDE] Allergy (Severe, Verified 06/10/23 09:34) ANGIOEDEMA lisinopril [LISINOPRIL] Allergy (Severe, Verified 06/10/23 09:34) ANGIOEDEMA Sulfa (Sulfonamide Antibiotics) [SULFA (SULFONAMIDE ANTIBIOTICS)] Allergy (Severe, Verified 06/10/23 09:34) FACIAL SWELLING iron [IRON] Allergy (Intermediate, Verified 06/10/23 09:34) NAUSEA lactose [LACTOSE] Allergy (Intermediate, Verified 06/10/23 09:34) DIARRHEA sertraline [From ZOLOFT] Allergy (Intermediate, Verified 06/10/23 09:34) INSOMNIA codeine Allergy (Unknown, Verified 06/10/23 09:34) Unknown lobster Allergy (Uncoded 06/10/23 09:34) Anaphylaxis HPI Nutrition Presentation Details [facility] 02/10/19 Diet Assmnt Details Pt reports she has been dealing wtih a UTI - she was told this is caused by diarrhea . she is still struggling with this. She has been ding better focusing on protein from a variety of plant based or meatless options. she doesn't tolerate meat well, except chicken wings. She recently bought digestive enzymes called peptiva and she is having great success with them, notices less GI issues is also having a lot of emotional distress as her 4yo great grandson is at [facility] battling leukemia. We briefly talked about keeping up with her nutrition despite lack of appetite and recommended smoothies, soups etc. Diagnosis Nutrition problem #1 malnutrition As related to (etiology) #1 altered metabolism nutri As evidenced by (sign/symptom) #1 noncompliance to diet/hx and weight loss Nutrition problem #2 undesirable food choices As related to (etiology) #2 unwilling to learn/apply As evidenced by (sign/symptom) #2 food recall Monitoring/Goals Nutrition problem monitoring total energy intake, HgbA1c, level of knowledge/skill, total PRO intake, glucose, fasting, total CHO intake, weight and oral fluids Outcome progress progressing Learning/Education Readiness to learn good Stages of change action Most Recent Diabetes Results: Creatinine 0.85 mg/dL (0.5-1.4) 06/04/23 Blood Urea Nitrogen 20 mg/dL (9-16) H 06/04/23 Sodium 145 mmol/L (135-145) 06/04/23 Potassium 4.6 mmol/L (3.3-5.1) 06/04/23 Chloride 108 mmol/L (96-108) 06/04/23 Carbon Dioxide 28 mmol/L (22-29) 06/04/23 Calcium 9.2 mg/dL (8.4-10.2) 06/04/23 AST 21 U/L (5-31) 06/04/23 ALT 18 U/L (0-31) 06/04/23 Total Protein 6.7 g/dL (6.5-8.0) 06/04/23 Albumin 4.1 g/dL (3.5-5.0) 06/04/23 [facility] Medical History Annual physical exam Nephrolithiasis UTI (urinary tract infection) Annual physical exam Protein deficiency Ventral hernia Binge-eating disorder, moderate Osteoarthritis of knees, bilateral Overweight BMI 25.0-25.9,adult Degenerative disc disease, cervical Spondylosis of cervical spine Obesity (BMI 30-39.9) Peptic ulcer disease Esophageal stricture Vitamin D deficiency Peripheral neuropathy GERD (gastroesophageal reflux disease) Hypercholesterolemia RSD (reflex sympathetic dystrophy) Peripheral vascular disease Anemia Small bowel obstruction Osteopenia History of esophageal dilatation Tubular adenoma of colon Obstructive sleep apnea Hypertension Hemorrhoids Deviated septum Impaired glucose tolerance History of duodenal ulcer Osteoarthritis of knees, bilateral COPD (chronic obstructive pulmonary disease) Surgical History Cystocele History of repair of hiatal hernia Hx of gastric bypass History of arthroscopy of left knee History of umbilical hernia repair History of tubal ligation History of hemorrhoidectomy History of nasal surgery History of tonsillectomy History of cholecystectomy Family History Father No problems noted. Mother No problems noted. Daughter Psoriatic arthritis Social History Housing: Apartment Alcohol intake: former Comment: pressure Patient Tobacco Use Status: Former Tobacco user Tobacco use type: Cigarette e-Cigarette/Vaping Use: Never Used Second Hand Smoke Exposure: No service: No Current occupational status: retired Gender identity: Female Cognitive needs: No Hearing needs: No Vision needs: Yes (glasses) Female Reproductive History Menstrual Age of Menarche: 10 Assessment & Plan Assessment & Plan (1) Hx of gastric bypass: Comment: January 2019 Code(s): Z98.84 - Bariatric surgery status Plan nutrition follow up 07/28 9am OV Coding Level of Care Code Nutr Indiv Subseq (95614) Diagnoses Hx of gastric bypass Z98.84 Time Spent (min) 30
== END 2023-06-17 09:35 | disposition home or self-care (01) ==
PROVIDERS: PCP Internal Medicine; Visit Provider Dietitian, Registered
DX: Z98.84 Bariatric surgery status (principal)

== ENCOUNTER → 2023-06-17 08:49 | Outpatient (BNVA) | payer OTHER, SELFPAY | PROVIDERS: PCP Internal Medicine; Visit Provider Dietitian, Registered | DX: Z98.84 Bariatric surgery status (principal); Z71.3 Dietary counseling and surveillance | CPT/HCPCS: 97803 ==

== ENCOUNTER 2023-06-30 09:34 | Outpatient (AMB) | payer OTHER, SELFPAY ==
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
== END 2023-07-12 14:37 | disposition home or self-care (01) ==
PROVIDERS: PCP Internal Medicine; Visit Provider Counselor Mental Health
DX: F50.81 Binge eating disorder (principal); Z98.84 Bariatric surgery status
CPT/HCPCS: 90834

== ENCOUNTER → 2023-06-30 09:34 | Outpatient (BNVA) | payer OTHER, SELFPAY | PROVIDERS: PCP Internal Medicine; Visit Provider Counselor Mental Health ==

== ENCOUNTER 2023-07-17 13:13 | Outpatient (REF) | payer OTHER, SELFPAY | END 2023-07-17 13:14 | disposition home or self-care (01) | LOC: HO.MDS 13:13 | PROVIDERS: Visit Provider Student in an Organized Health Care Education/Training Program | DX: M81.0 Age-related osteoporosis without current pathological fracture (principal) | CPT/HCPCS: 96365; J3489 ==

== ENCOUNTER 2023-07-21 09:55 | Outpatient (AMB) | payer OTHER, SELFPAY ==
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
== END 2023-07-21 13:57 | disposition home or self-care (01) ==
PROVIDERS: PCP Internal Medicine; Visit Provider Counselor Mental Health
DX: F50.81 Binge eating disorder (principal); Z98.84 Bariatric surgery status
CPT/HCPCS: 90834

== ENCOUNTER → 2023-07-21 09:55 | Outpatient (BNVA) | payer OTHER, SELFPAY | PROVIDERS: PCP Internal Medicine; Visit Provider Counselor Mental Health ==

== ENCOUNTER 2023-07-29 08:46 | Outpatient (AMB) | payer OTHER, SELFPAY ==
--- NOTE | 2023-07-29 09:28 | A.OFFVIS_ITS ---
Intake Intake Visit Reasons: (OV) PO LSG 02/10/19 Allergies hydrochlorothiazide [HYDROCHLOROTHIAZIDE] Allergy (Severe, Verified 06/10/23 09:34) ANGIOEDEMA lisinopril [LISINOPRIL] Allergy (Severe, Verified 06/10/23 09:34) ANGIOEDEMA Sulfa (Sulfonamide Antibiotics) [SULFA (SULFONAMIDE ANTIBIOTICS)] Allergy (Severe, Verified 06/10/23 09:34) FACIAL SWELLING iron [IRON] Allergy (Intermediate, Verified 06/10/23 09:34) NAUSEA lactose [LACTOSE] Allergy (Intermediate, Verified 06/10/23 09:34) DIARRHEA sertraline [From ZOLOFT] Allergy (Intermediate, Verified 06/10/23 09:34) INSOMNIA codeine Allergy (Unknown, Verified 06/10/23 09:34) Unknown lobster Allergy (Uncoded 06/10/23 09:34) Anaphylaxis HPI Nutrition Presentation Details [facility] 02/10/19 Diet Assmnt Details Chooses a lot of high fat proteins such as sausage, reyes everyday, ribs, ground beef, etc. She recently bought digestive enzymes called peptiva and she is having great success with them, notices less GI issues is also having a lot of emotional distress as her 4yo great grandson is at [facility] battling leukemia. We briefly talked about keeping up with her nutrition despite lack of appetite and recommended smoothies, soups etc. Diagnosis Nutrition problem #1 malnutrition As related to (etiology) #1 altered metabolism nutri As evidenced by (sign/symptom) #1 noncompliance to diet/hx and weight loss Nutrition problem #2 undesirable food choices As related to (etiology) #2 unwilling to learn/apply As evidenced by (sign/symptom) #2 food recall Monitoring/Goals Nutrition problem monitoring total energy intake, HgbA1c, level of knowledge/skill, total PRO intake, glucose, fasting, total CHO intake, weight and oral fluids Outcome progress progressing Learning/Education Readiness to learn good Stages of change action Most Recent Diabetes Results: Creatinine 0.85 mg/dL (0.5-1.4) 06/04/23 Blood Urea Nitrogen 20 mg/dL (9-16) H 06/04/23 Sodium 145 mmol/L (135-145) 06/04/23 Potassium 4.6 mmol/L (3.3-5.1) 06/04/23 Chloride 108 mmol/L (96-108) 06/04/23 Carbon Dioxide 28 mmol/L (22-29) 06/04/23 Calcium 9.2 mg/dL (8.4-10.2) 06/04/23 AST 21 U/L (5-31) 06/04/23 ALT 18 U/L (0-31) 06/04/23 Total Protein 6.7 g/dL (6.5-8.0) 06/04/23 Albumin 4.1 g/dL (3.5-5.0) 06/04/23 [facility] Medical History Annual physical exam Nephrolithiasis UTI (urinary tract infection) Annual physical exam Protein deficiency Ventral hernia Binge-eating disorder, moderate Osteoarthritis of knees, bilateral Overweight BMI 25.0-25.9,adult Degenerative disc disease, cervical Spondylosis of cervical spine Obesity (BMI 30-39.9) Peptic ulcer disease Esophageal stricture Vitamin D deficiency Peripheral neuropathy GERD (gastroesophageal reflux disease) Hypercholesterolemia RSD (reflex sympathetic dystrophy) Peripheral vascular disease Anemia Small bowel obstruction Osteopenia History of esophageal dilatation Tubular adenoma of colon Obstructive sleep apnea Hypertension Hemorrhoids Deviated septum Impaired glucose tolerance History of duodenal ulcer Osteoarthritis of knees, bilateral COPD (chronic obstructive pulmonary disease) Surgical History Cystocele History of repair of hiatal hernia Hx of gastric bypass History of arthroscopy of left knee History of umbilical hernia repair History of tubal ligation History of hemorrhoidectomy History of nasal surgery History of tonsillectomy History of cholecystectomy Family History Father No problems noted. Mother No problems noted. Daughter Psoriatic arthritis Social History Housing: Apartment Alcohol intake: former Comment: pressure Patient Tobacco Use Status: Former Tobacco user Tobacco use type: Cigarette e-Cigarette/Vaping Use: Never Used Second Hand Smoke Exposure: No service: No Current occupational status: retired Gender identity: Female Cognitive needs: No Hearing needs: No Vision needs: Yes (glasses) Female Reproductive History Menstrual Age of Menarche: 10 Assessment & Plan Assessment & Plan (1) Hx of gastric bypass: Comment: January 2019 Code(s): Z98.84 - Bariatric surgery status Plan Educated on lean protein sources and trying to balance her plate with more vegetable and lean proteins. Will f/u 08/19 at 9am OV as requested by pt Coding Level of Care Code Nutr Indiv Subseq ([id number]) Diagnoses Hx of gastric bypass Z98.84 Time Spent (min) 30
== END 2023-07-29 09:38 | disposition home or self-care (01) ==
PROVIDERS: PCP Internal Medicine; Visit Provider Dietitian, Registered
DX: Z98.84 Bariatric surgery status (principal)

== ENCOUNTER → 2023-07-29 08:46 | Outpatient (BNVA) | payer OTHER, SELFPAY | PROVIDERS: PCP Internal Medicine; Visit Provider Dietitian, Registered | DX: Z98.84 Bariatric surgery status (principal) | CPT/HCPCS: 97803 ==

== ENCOUNTER 2023-08-11 09:20 | Outpatient (AMB) | payer OTHER, SELFPAY ==
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
== END 2023-08-11 10:30 | disposition home or self-care (01) ==
PROVIDERS: PCP Internal Medicine; Visit Provider Counselor Mental Health
DX: F50.81 Binge eating disorder (principal); Z98.84 Bariatric surgery status
CPT/HCPCS: 99499

== ENCOUNTER → 2023-08-11 09:20 | Outpatient (BNVA) | payer OTHER, SELFPAY | PROVIDERS: PCP Internal Medicine; Visit Provider Counselor Mental Health ==

== ENCOUNTER 2023-08-18 08:23 | Outpatient (AMB) | payer OTHER, SELFPAY ==
--- NOTE | 2023-08-18 08:31 | MHC.OFFVIS ---
Intake Intake Visit Reasons: 3m follow up Intake Note: Patient is present for follow up recurrent uti, incontinence Urology Medications: estradiol cream, myrbetriq, methenamine, Vitamin C Blood Thinner: none PVR: 0ml's Plastic And Reconstructive Surgeon Required: No Accompanied by: Self / Same As Patient Allergies hydrochlorothiazide [HYDROCHLOROTHIAZIDE] Allergy (Severe, Verified 08/18/23 21:34) ANGIOEDEMA lisinopril [LISINOPRIL] Allergy (Severe, Verified 08/18/23 21:34) ANGIOEDEMA Sulfa (Sulfonamide Antibiotics) [SULFA (SULFONAMIDE ANTIBIOTICS)] Allergy (Severe, Verified 08/18/23 21:34) FACIAL SWELLING iron [IRON] Allergy (Intermediate, Verified 08/18/23 21:34) NAUSEA lactose [LACTOSE] Allergy (Intermediate, Verified 08/18/23 21:34) DIARRHEA sertraline [From ZOLOFT] Allergy (Intermediate, Verified 08/18/23 21:34) INSOMNIA codeine Allergy (Unknown, Verified 08/18/23 21:34) Unknown lobster Allergy (Uncoded 08/18/23 21:34) Anaphylaxis Medication List - Last Reconciled 08/18/23 by VIKY Garcia-RUBEN amlodipine 5 mg PO DAILY ascorbic acid (vitamin C) 1 g PO DAILY 90 days calcium citrate-vitamin D3 315 mg-6.25 mcg (250 unit) 1 tab PO DAILY cetirizine 10 mg PO DAILY PRN cholecalciferol (vitamin D3) (Vitamin D3) 50 mcg PO DAILY diclofenac sodium 1% 4 grams topical QID PRN 90 days dicyclomine 10 - 20 mg PO Q6H PRN epinephrine IM estradiol 0.01%(0.1mg/gram) vaginally daily; pea sized amount to urethra 30 days famotidine 20 mg PO DAILY folic acid 1 mg PO DAILY ipratropium bromide 1 spray intranasal TID PRN ketoconazole 2% appl topical BID methenamine hippurate 1 g PO DAILY 90 days methotrexate sodium 20 mg (8 x 2.5 mg) PO QWEEK mirabegron ER (Myrbetriq) 50 mg PO DAILY 90 days krawhbdjeomi-khc-xacz-FA-vit K 45 mg iron- 800 mcg-120 mcg (Bariatric Multivitamins) 1 cap PO DAILY pregabalin (Lyrica) 50 mg PO BID tizanidine 4 mg PO Q8H PRN trazodone 50 mg PO BEDTIME PRN HPI HPI Comments History of Present Illness Details María is a very pleasant [address] Nicole. She has a past medical history of binge eating disorder, osteoarthritis, overweight, degenerative disc disease, obesity, peptic ulcer disease, esophageal stricture, vitamin-D deficiency, peripheral neuropathy, GERD, hypercholesteremia, peripheral vascular disease, OMID, hemorrhoids, and COPD. She presents to the office today for follow-up of her recurrent urinary tract infections and cystitis. Of note, patient underwent in office cystoscopy with Dr. Grant for recurrent urinary tract infections at which time office cystoscopy noted flattened erythematous lesion right lateral wall > 2 cm--to <5 cm. She then underwent cystoscopy with bladder biopsy under sedation. Bladder biopsy results were reviewed with the patient during last office visit approximately [address] Grant. Biopsies consistent with cystitis. In discussion with the patient today she reports since her last office visit here approximately 3 months ago she has been doing and feeling well. She reports having followed up with vocal artist Dr. Klein and was noted to have a UTI (ecoli) and has since been treated. She reports compliance with Estrace cream, methenamine, and vitamin-C as prescribed. She currently denies any bothersome urinary issues or concerns. Unable to obtain urine for urinalysis however PVR 0 mL. She discusses having started digestive enzymes for her ongoing issues with diarrhea and feels this has helped her significantly. Previous workup has included a retroperitoneal ultrasound noting nonobstructive echogenic stone lower pole right kidney. Left kidney is unremarkable. She has a past medical history of mesh being inserted with Dr. Chandler as well as InterStim however InterStim was removed related to infection. She reports having a cystocele and rectocele repair with Dr. Ayers in the past. Patient also reports having performed pelvic therapy in the past as well. She otherwise offers no other issues or concerns at this time. [facility] Medical History Annual physical exam Nephrolithiasis UTI (urinary tract infection) Annual physical exam Protein deficiency Ventral hernia Binge-eating disorder, moderate Osteoarthritis of knees, bilateral Overweight BMI 25.0-25.9,adult Degenerative disc disease, cervical Spondylosis of cervical spine Obesity (BMI 30-39.9) Peptic ulcer disease Esophageal stricture Vitamin D deficiency Peripheral neuropathy GERD (gastroesophageal reflux disease) Hypercholesterolemia RSD (reflex sympathetic dystrophy) Peripheral vascular disease Anemia Small bowel obstruction Osteopenia History of esophageal dilatation Tubular adenoma of colon Obstructive sleep apnea Hypertension Hemorrhoids Deviated septum Impaired glucose tolerance History of duodenal ulcer Osteoarthritis of knees, bilateral COPD (chronic obstructive pulmonary disease) Surgical History Cystocele History of repair of hiatal hernia Hx of gastric bypass History of arthroscopy of left knee History of umbilical hernia repair History of tubal ligation History of hemorrhoidectomy History of nasal surgery History of tonsillectomy History of cholecystectomy Family History Father No problems noted. Mother No problems noted. Daughter Psoriatic arthritis Social History Housing: Apartment Alcohol intake: former Comment: pressure Patient Tobacco Use Status: Former Tobacco user Tobacco use type: Cigarette e-Cigarette/Vaping Use: Never Used Second Hand Smoke Exposure: No service: No Current occupational status: retired Gender identity: Female Cognitive needs: No Hearing needs: No Vision needs: Yes (glasses) Female Reproductive History Menstrual Age of Menarche: 10 Review of Systems Const Reports as per HPI Eyes Reports no additional complaints ENT Reports no additional complaints Card Reports as per HPI Resp Reports as per HPI GI Reports as per HPI Reports as per HPI Musc Reports as per HPI Psych Reports as per HPI Endo Reports no additional complaints Gold/Lymph Reports no additional complaints Aller/Immun Reports no additional complaints Physical Exam Const General: cooperative, healthy appearing, comfortable, no acute distress, well developed, alert and awake Orientation/consciousness: patient oriented x3 Limitations: no limitations HEENT Head: Yes normal to inspection, Yes normocephalic and Yes atraumatic Eyes General: appearance normal, both eyes and all related structures Neck Neck: Yes normal visual inspection and Yes trachea midline Chest Chest palpation & inspection: normal inspection of the chest Cardio Rate: regular rate GI Other: patient reports seroma to abdominal area. General: Yes no CVA tenderness Back/Spine/Pelvis Back: no CVA tenderness Neuro General: patient oriented x3 Extrem General: Yes normal to inspection Psych Appearance: grossly normal and well kempt Mental Status: mental status grossly normal Speech and movement: Normal speech and movement present Affect: normal affect Attitude: cooperative Thought process: Normal thought process present Thought content: Normal thought content present Insight: Fair insight present (Psych) Judgement: Fair judgement present (Psych) Assessment & Plan Assessment & Plan (1) Recurrent urinary tract infection: Code(s): N39.0 - Urinary tract infection, site not specified (2) Nephrolithiasis: Code(s): N20.0 - Calculus of kidney (3) Cystitis: Code(s): N30.90 - Cystitis, unspecified without hematuria (4) Lesion of bladder: Comment: 04/2023 TOM grant Code(s): N32.9 - Bladder disorder, unspecified Plan Unable to obtain urine for urinalysis however PVR 0 mL. Patient currently denies any bothersome urinary issues or concerns. Discussed at length potential causes for recurrent urinary tract infections. Continue with Estrace cream, methenamine, vitamin-C, and Myrbetriq as prescribed. Discussed UTI prevention with behavioral therapy with timed voiding, perineal hygiene and postcoital voiding, and management of diarrhea. Discussed bladder triggers/irritants. Follow-up in 6 months with PVR; or sooner with any issues, concerns, and or questions. Orders: Orders AMB Post Void Residual by ultrasound Today R35.0 - Frequency of micturition Patient Instructions: The patient had an opportunity to ask questions regarding the treatment plan. All questions were answered. Physical exam, labs, and imaging were discussed and reviewed in detail. As well as risks, benefits, and discussion of treatment choices. No major barriers to understanding were identified. The patient expressed understanding and agreement with the above treatment plan. The patient was made aware they should contact our office by phone for worsening of their current condition, the appearance of new symptoms, or with any questions or concerns. Compliance is encouraged with any medications and follow up testing that is ordered. It is a privilege to be allowed the opportunity to participate in? your urological care.? Again, if you have any questions or concerns If you have any questions or concerns please do not hesitate to contact me. The office is [phone]. This note is constructed using voice recognition software. While every effort has been made to ensure accuracy hospital staff pharmacist errors may have been included. Yours sincerely, Althea Michael, N[employer] Coding Level of Care Code Est Pt Level 4 (03104) Diagnoses Recurrent urinary tract infection N39.0 Nephrolithiasis N20.0 Cystitis N30.90 Lesion of bladder N32.9 Time Spent (min) 35
== END 2023-08-18 09:02 | disposition home or self-care (01) ==
PROVIDERS: PCP Internal Medicine; Visit Provider Nurse Practitioner Family
DX: N39.0 Urinary tract infection, site not specified (principal); N20.0 Calculus of kidney; N30.90 Cystitis, unspecified without hematuria; N32.9 Bladder disorder, unspecified
CPT/HCPCS: 99214

== ENCOUNTER → 2023-08-18 08:23 | Outpatient (BNVA) | payer OTHER, SELFPAY | PROVIDERS: PCP Internal Medicine; Visit Provider Nurse Practitioner Family | DX: N39.0 Urinary tract infection, site not specified (principal); N20.0 Calculus of kidney; N30.90 Cystitis, unspecified without hematuria; N32.9 Bladder disorder, unspecified | CPT/HCPCS: 99212 ==

== ENCOUNTER 2023-08-20 08:44 | Outpatient (AMB) | payer OTHER, SELFPAY ==
--- NOTE | 2023-08-20 09:40 | A.OFFVIS_ITS ---
Intake VS Expanded 08/20/23 09:56 Height 5 ft 1 in Weight 142 lb BMI 26.8 Intake Visit Reasons: (OV) PO [facility] 02/10/19 Nightman Required: No Allergies hydrochlorothiazide [HYDROCHLOROTHIAZIDE] Allergy (Severe, Verified 08/18/23 21:34) ANGIOEDEMA lisinopril [LISINOPRIL] Allergy (Severe, Verified 08/18/23 21:34) ANGIOEDEMA Sulfa (Sulfonamide Antibiotics) [SULFA (SULFONAMIDE ANTIBIOTICS)] Allergy (Severe, Verified 08/18/23 21:34) FACIAL SWELLING iron [IRON] Allergy (Intermediate, Verified 08/18/23 21:34) NAUSEA lactose [LACTOSE] Allergy (Intermediate, Verified 08/18/23 21:34) DIARRHEA sertraline [From ZOLOFT] Allergy (Intermediate, Verified 08/18/23 21:34) INSOMNIA codeine Allergy (Unknown, Verified 08/18/23 21:34) Unknown lobster Allergy (Uncoded 08/18/23 21:34) Anaphylaxis HPI Nutrition Presentation Details [facility] 02/10/19 Diet Assmnt Details Has been having GI upset with all meat lately, and not a big vegetable eater . Getting tired of beans . Has about 2 protein shakes per day (either Evolve, or OWYN) sometimes can tolerate fairlife and another one she doens't know the name of. We talked about getting enough dietary calcium, strategies for increasing protein She recently bought digestive enzymes called peptiva and she is having great success with them, notices less GI issues . is also having a lot of emotional distress as her 4yo great grandson is at [facility] battling leukemia. We briefly talked about keeping up with her nutrition despite lack of appetite and recommended smoothies, soups etc. Diagnosis Nutrition problem #1 malnutrition As related to (etiology) #1 altered metabolism nutri As evidenced by (sign/symptom) #1 noncompliance to diet/hx and weight loss Nutrition problem #2 undesirable food choices As related to (etiology) #2 unwilling to learn/apply As evidenced by (sign/symptom) #2 food recall Monitoring/Goals Nutrition problem monitoring total energy intake, HgbA1c, level of knowledge/skill, total PRO intake, glucose, fasting, total CHO intake, weight and oral fluids Outcome progress progressing Learning/Education Readiness to learn good Stages of change action Most Recent Diabetes Results: No Data to Display [facility] Medical History Annual physical exam Nephrolithiasis UTI (urinary tract infection) Annual physical exam Protein deficiency Ventral hernia Binge-eating disorder, moderate Osteoarthritis of knees, bilateral Overweight BMI 25.0-25.9,adult Degenerative disc disease, cervical Spondylosis of cervical spine Obesity (BMI 30-39.9) Peptic ulcer disease Esophageal stricture Vitamin D deficiency Peripheral neuropathy GERD (gastroesophageal reflux disease) Hypercholesterolemia RSD (reflex sympathetic dystrophy) Peripheral vascular disease Anemia Small bowel obstruction Osteopenia History of esophageal dilatation Tubular adenoma of colon Obstructive sleep apnea Hypertension Hemorrhoids Deviated septum Impaired glucose tolerance History of duodenal ulcer Osteoarthritis of knees, bilateral COPD (chronic obstructive pulmonary disease) Surgical History Cystocele History of repair of hiatal hernia Hx of gastric bypass History of arthroscopy of left knee History of umbilical hernia repair History of tubal ligation History of hemorrhoidectomy History of nasal surgery History of tonsillectomy History of cholecystectomy Family History Father No problems noted. Mother No problems noted. Daughter Psoriatic arthritis Social History Housing: Apartment Alcohol intake: former Comment: pressure Patient Tobacco Use Status: Former Tobacco user Tobacco use type: Cigarette e-Cigarette/Vaping Use: Never Used Second Hand Smoke Exposure: No service: No Current occupational status: retired Gender identity: Female Cognitive needs: No Hearing needs: No Vision needs: Yes (glasses) Female Reproductive History Menstrual Age of Menarche: 10 Assessment & Plan Assessment & Plan (1) Hx of gastric bypass: Comment: January 2019 Code(s): Z98.84 - Bariatric surgery status Plan Pt will continue with Rebecca HUGHES and needs to schedule annual appt in Jan 2024. Patient Instructions: Strategies for increasing protein and dietary calcium discussed today. Provided recipe resources and ideas. Coding Level of Care Code Nutr Indiv Subseq (90659) Diagnoses Hx of gastric bypass Z98.84 Time Spent (min) 20
[2023-08-20 09:56] VITALS: BMI 26.8
== END 2023-08-20 09:47 | disposition home or self-care (01) ==
PROVIDERS: PCP Internal Medicine; Visit Provider Dietitian, Registered
DX: Z98.84 Bariatric surgery status (principal)

== ENCOUNTER → 2023-08-20 08:44 | Outpatient (BNVA) | payer OTHER, SELFPAY | PROVIDERS: PCP Internal Medicine; Visit Provider Dietitian, Registered | DX: E66.3 Overweight (principal); Z71.3 Dietary counseling and surveillance; Z68.26 Body mass index [BMI] 26.0-26.9, adult; Z98.84 Bariatric surgery status | CPT/HCPCS: 97803 ==

== ENCOUNTER 2023-08-28 08:16 | Outpatient (AMB) | payer OTHER, SELFPAY ==
--- NOTE | 2023-08-28 08:32 | A.OFFVIS_ITS ---
Intake Intake Visit Reasons: Hypertension Allergies hydrochlorothiazide [HYDROCHLOROTHIAZIDE] Allergy (Severe, Verified 08/18/23 21:34) ANGIOEDEMA lisinopril [LISINOPRIL] Allergy (Severe, Verified 08/18/23 21:34) ANGIOEDEMA Sulfa (Sulfonamide Antibiotics) [SULFA (SULFONAMIDE ANTIBIOTICS)] Allergy (Severe, Verified 08/18/23 21:34) FACIAL SWELLING iron [IRON] Allergy (Intermediate, Verified 08/18/23 21:34) NAUSEA lactose [LACTOSE] Allergy (Intermediate, Verified 08/18/23 21:34) DIARRHEA sertraline [From ZOLOFT] Allergy (Intermediate, Verified 08/18/23 21:34) INSOMNIA codeine Allergy (Unknown, Verified 08/18/23 21:34) Unknown lobster Allergy (Uncoded 08/18/23 21:34) Anaphylaxis [facility] Medical History Annual physical exam Nephrolithiasis UTI (urinary tract infection) Annual physical exam Protein deficiency Ventral hernia Binge-eating disorder, moderate Osteoarthritis of knees, bilateral Overweight BMI 25.0-25.9,adult Degenerative disc disease, cervical Spondylosis of cervical spine Obesity (BMI 30-39.9) Peptic ulcer disease Esophageal stricture Vitamin D deficiency Peripheral neuropathy GERD (gastroesophageal reflux disease) Hypercholesterolemia RSD (reflex sympathetic dystrophy) Peripheral vascular disease Anemia Small bowel obstruction Osteopenia History of esophageal dilatation Tubular adenoma of colon Obstructive sleep apnea Hypertension Hemorrhoids Deviated septum Impaired glucose tolerance History of duodenal ulcer Osteoarthritis of knees, bilateral COPD (chronic obstructive pulmonary disease) Surgical History Cystocele History of repair of hiatal hernia Hx of gastric bypass History of arthroscopy of left knee History of umbilical hernia repair History of tubal ligation History of hemorrhoidectomy History of nasal surgery History of tonsillectomy History of cholecystectomy Family History Father No problems noted. Mother No problems noted. Daughter Psoriatic arthritis Social History Housing: Apartment Alcohol intake: former Comment: pressure Patient Tobacco Use Status: Former Tobacco user Tobacco use type: Cigarette e-Cigarette/Vaping Use: Never Used Second Hand Smoke Exposure: No service: No Current occupational status: retired Gender identity: Female Cognitive needs: No Hearing needs: No Vision needs: Yes (glasses) Female Reproductive History Menstrual Age of Menarche: 10 Coding
[2023-08-28 08:34] VITALS: BP 140/64; PULSE 70; O2SAT 97; BMI 27.2
--- NOTE | 2023-08-28 08:35 | MHC.PC.OV ---
Vital Signs 08/28/23 08:34 08/28/23 08:50 Height 5 ft 1 in Weight 144 lb 0.4 oz BMI 27.2 BP 140/64 H 120/70 Blood Pressure Location Lt brachial Lt brachial Position Sitting Sitting Pulse 70 Pulse Source Pulse Oximeter Pulse Oximetry (%) 97 Oxygen Delivery Method Room Air Intake Visit Reasons: Hypertension Allergies hydrochlorothiazide [HYDROCHLOROTHIAZIDE] Allergy (Severe, Verified 08/28/23 08:37) ANGIOEDEMA lisinopril [LISINOPRIL] Allergy (Severe, Verified 08/28/23 08:37) ANGIOEDEMA Sulfa (Sulfonamide Antibiotics) [SULFA (SULFONAMIDE ANTIBIOTICS)] Allergy (Severe, Verified 08/28/23 08:37) FACIAL SWELLING iron [IRON] Allergy (Intermediate, Verified 08/28/23 08:37) NAUSEA lactose [LACTOSE] Allergy (Intermediate, Verified 08/28/23 08:37) DIARRHEA sertraline [From ZOLOFT] Allergy (Intermediate, Verified 08/28/23 08:37) INSOMNIA codeine Allergy (Unknown, Verified 08/28/23 08:37) Unknown lobster Allergy (Uncoded 08/28/23 08:37) Anaphylaxis Tobacco use date assessed: 08/28/23 Dental Screening Dental Screen Date: 05/29/23 HPI Hypertension HPI Details 72-year-old female with a history of nephrolithiasis rheumatoid arthritis COPD bilateral knee osteoarthritis hypertension hypercholesterolemia GERD history of gastric bypass history RSD coming in for follow-up. Last seen in May 2023. Bone density is up-to-date October 2022 mammogram declined review of the notes patient follows up with urology for recurrent UTI and incontinence on estradiol cream and mirabegron/methenamine/vitamin-C. Urology on cystoscopy found a lesion on the right lateral wall cystoscopy and biopsy done cystitis right lower pole kidney stone. May seen Rheumatology for rheumatoid arthritis on methotrexate and for the osteoporosis advised Reclast. BP at home and mostly good. did get reclast. retina specialist injection to be done in [facility] next week. BP is better but soft stool , no constipation. [facility] Medical History (Updated 08/28/23 @ 08:55 by Dwight Nicole MD) Vaginal prolapse Lesion of bladder Annual physical exam Nephrolithiasis UTI (urinary tract infection) Annual physical exam Protein deficiency Ventral hernia Binge-eating disorder, moderate Osteoarthritis of knees, bilateral Overweight BMI 25.0-25.9,adult Degenerative disc disease, cervical Spondylosis of cervical spine Obesity (BMI 30-39.9) Peptic ulcer disease Esophageal stricture Vitamin D deficiency Peripheral neuropathy GERD (gastroesophageal reflux disease) Hypercholesterolemia RSD (reflex sympathetic dystrophy) Peripheral vascular disease Anemia Small bowel obstruction Osteopenia History of esophageal dilatation Tubular adenoma of colon Obstructive sleep apnea Hypertension Hemorrhoids Deviated septum Impaired glucose tolerance History of duodenal ulcer Osteoarthritis of knees, bilateral COPD (chronic obstructive pulmonary disease) Surgical History (Updated 08/28/23 @ 08:45 by Dwight Nicole MD) Cystocele History of repair of hiatal hernia Hx of gastric bypass History of arthroscopy of left knee History of umbilical hernia repair History of tubal ligation History of hemorrhoidectomy History of nasal surgery History of tonsillectomy History of cholecystectomy Family History Father No problems noted. Mother No problems noted. Daughter Psoriatic arthritis Social History Housing: Apartment Alcohol intake: former Comment: pressure Patient Tobacco Use Status: Former Tobacco user Tobacco use type: Cigarette e-Cigarette/Vaping Use: Never Used Second Hand Smoke Exposure: No service: No Current occupational status: retired Gender identity: Female Cognitive needs: No Hearing needs: No Vision needs: Yes (glasses) Female Reproductive History Menstrual Age of Menarche: 10 Questionnaire Thrive Questionnaire Date Thrive assessed: 08/28/23 I am a: Patient What is your living situation today?: I have a steady place to live Within the past 12 months, did the food you bought not last and you didn't have the money to get more?: Never true Within the past 12 months, did you worry whether your food would run out before you got money to buy more?: Never true Do you have trouble paying for medicines?: No Do you have trouble getting transportation to medical appointments?: No Do you have trouble paying your heating and electricity bill?: No Do you have trouble taking care of your child, family member or friend?: No Do you have trouble with day-to-day activities such as bathing, preparing meals, shopping, managing finances, etc.?: No Are you currently unemployed and looking for a job?: No Are you interested in more education?: No Please select the resources that you would like help with: None Currently or been in a relationship where the following occur: no concerns reported THRIVE Score: 0 AUDIT C Alcohol Use Questionnaire (AUDIT-C) 1. How often do you have a drink containing alcohol?: Never 3. How often do you have six or more drinks on one occasion?: Never Total Score: 0 JOSE ARMANDO-7 AMB Questionnaire JOSE ARMANDO-7 Date JOSE ARMANDO - 7 assessed: 05/29/23 Source: Developed by Drs. Jordan Elise, Sherri Loo, David Ross and colleagues, with an educational edna from [email or web address]. Physical exam (Primary Care) Vital Signs: Last Vital Signs Pulse 70 08/28/23 08:34 BP 140/64 H 08/28/23 08:34 Pulse Ox 97 08/28/23 08:34 Oxygen Delivery Method Room Air 08/28/23 08:34 BMI result Body Mass Index 27.2 Tobacco/Smoking Status: Tobacco use Status Tobacco use date assessed 08/28/23 08/28/23 08:38 Patient Tobacco Use Status Former Tobacco user 08/28/23 08:38 Tobacco use type Cigarette 08/28/23 08:38 e-Cigarette/Vaping Use Never Used 08/28/23 08:38 Thrive Assessment: Date of Thrive Assessment Date Thrive assessed 08/28/23 08/28/23 08:38 Currently or been in a relationship where the following occur: no concerns reported Const General: alert; No acute distress Eyes Conjunctivae: conjunctivae normal Resp Auscultation: clear to auscultation bilaterally Cardio Rate: regular rate Rhythm: regular rhythm GI Inspection: Yes normal to inspection Extrem General: Yes normal to inspection and No edema Assessment and Plan Assessment & Plan (1) Nephrolithiasis: Code(s): N20.0 - Calculus of kidney Plan: Keep well hydrated continue to be monitored patient follows up with urology (2) Cystitis: Code(s): N30.90 - Cystitis, unspecified without hematuria Plan: Patient has been placed on methenamine and good urinary hygiene. (3) Rheumatoid arthritis: Comment: -ve RF++CCP dx 2018 MTX 2018 briefly DC by patient MTX restarted 03/2023 Code(s): M06.9 - Rheumatoid arthritis, unspecified Qualifiers: Rheumatoid arthritis location: multiple sites Rheumatoid factor presence: without rheumatoid factor Qualified Code(s): M06.09 - Rheumatoid arthritis without rheumatoid factor, multiple sites Plan: Patient on methotrexate and has been following up with Rheumatology (4) Osteopenia: Comment: June 2018 Code(s): M85.80 - Other specified disorders of bone density and structure, unspecified site Plan: Trying to work things out with Reclast and patient follows up with Rheumatology (5) Hx of gastric bypass: Comment: January 2019 Code(s): Z98.84 - Bariatric surgery status Plan: Continue to follow-up with bariatric surgeon. (6) Hypercholesterolemia: Code(s): E78.00 - Pure hypercholesterolemia, unspecified Plan: Avoid fried foods, chicken skin, eggs, butter margarine, pastries and meat. Be it pork or beef they have a lot of cholesterol December 2022 last blood work good LDL (7) Anemia: Code(s): D64.9 - Anemia, unspecified Plan: Stable continue to follow-up (8) Hypertension: Comment: Stress test nuclear October 2012 normal Code(s): I10 - Essential (primary) hypertension Qualifiers: Hypertension type: essential hypertension Qualified Code(s): I10 - Essential (primary) hypertension Plan: Continue with blood pressure medication. Decrease salt intake and exercise amlodipine 5 mg once a day (9) COPD (chronic obstructive pulmonary disease): Comment: PFT July 2019 normal Code(s): J44.9 - Chronic obstructive pulmonary disease, unspecified Qualifiers: COPD type: emphysema Emphysema type: panlobular Qualified Code(s): J43.1 - Panlobular emphysema Plan: Stable Orders: Orders XR chest 2V Today R06.02 - Shortness of breath Patient Instructions: no wheezing noted, does have a hx of COPD, no fevers Coding Level of Care Code Est Pt Level 4 (41482) Diagnoses Nephrolithiasis N20.0 Cystitis N30.90 Rheumatoid arthritis of multiple sites with negative rheumatoid factor M06.09 Rheumatoid arthritis location: multiple sites Rheumatoid factor presence: without rheumatoid factor Osteopenia M85.80 Hx of gastric bypass Z98.84 Hypercholesterolemia E78.00 Anemia D64.9 Essential hypertension I10 Hypertension type: essential hypertension Panlobular emphysema J43.1 COPD type: emphysema Emphysema type: panlobular
[2023-08-28 08:50] VITALS: BP 120/70
== END 2023-08-28 09:32 | disposition home or self-care (01) ==
PROVIDERS: PCP Internal Medicine; Visit Provider Internal Medicine
DX: M06.09 Rheumatoid arthritis without rheumatoid factor, multiple sites (principal); J43.1 Panlobular emphysema; N20.0 Calculus of kidney; N30.90 Cystitis, unspecified without hematuria; M85.80 Other specified disorders of bone density and structure, unspecified site; Z98.84 Bariatric surgery status; E78.00 Pure hypercholesterolemia, unspecified; D64.9 Anemia, unspecified; I10 Essential (primary) hypertension
CPT/HCPCS: 99214

== ENCOUNTER 2023-08-28 09:09 | Outpatient (REF) | payer OTHER, SELFPAY ==
--- NOTE | ~2023-08-28 | XR_ITS ---
EXAMINATION: XR CHEST CLINICAL INFORMATION: Reason for Exam R06.02 - Shortness of breath COMPARISON: Chest radiograph 11/02/2018, CT chest 11/04/2018 TECHNIQUE: 2 views of the chest FINDINGS: Lines and tubes: None. Patchy right basilar opacities which reflect atelectasis, aspiration or infection. No pleural effusion. No pneumothorax. Normal cardiomediastinal silhouette. Remote right rib fracture deformity. XR/XR chest 2V IMPRESSION: 1. Patchy right basilar opacities which reflect atelectasis, aspiration or infection. A [facility] radiology physician senior technical support analyst confirmed receipt of these findings and recommendations with Ale DONATO at the office of ordering provider Dwight Nicole, at 1:45 PM 09/05/2023 with read back confirmation and it was ascertained that the content and urgency of the report was understood at the time of direct communication.
[2023-08-28 10:16] LABS: MANUAL DIFF FLAG NO
[2023-08-28 10:58] LABS: Eosinophils Absolute Auto 0.1 X10*3/uL (0.0-0.4); Eosinophils Percent Auto 1.2 % (0-4); Hematocrit 36.2 % (37.0-47.0); Hemoglobin 11.4 g/dl (12.0-16.0); Imm Gran Abs Auto 0.01 X10*3/uL (0.00-0.03); Imm Gran Pct Auto 0.2 % (0.0-0.4); Lymphocytes Absolute Auto 0.9 X10*3/uL (1.2-4.9); Lymphocytes Percent Auto 17.8 % (20-40); Mean Corpuscular HGB Conc 31.5 g/dl (31.0-35.0); Mean Corpuscular Hemoglobin 28.6 pg (27.0-33.0); Mean Corpuscular Volume 90.7 fL (80.0-98.0); Mean Platelet Volume 11.4 fL (9.4-12.3); Monocytes Absolute Auto 0.4 X10*3/uL (0.1-1.2); Monocytes Percent Auto 7.2 % (2-11); Neutrophils Absolute Auto 3.8 x10*3/uL (2.0-8.3); Neutrophils Percent Auto 73.6 % (45-73); Platelet Count 173 X10*3/uL (160-400); Red Blood Count 3.99 X10*6/uL (4.20-5.50); Red Cell Distribution Width 14.8 % (11.0-16.0); White Blood Count 5.1 X10*3/uL (4.8-10.8)
[2023-08-28 11:28] LABS: Alanine Aminotransferase 17 U/L (0-31); Albumin Level 4.1 g/dL (3.5-5.0); Alkaline Phosphatase 114 U/L (39-117); Anion Gap 11 (12-20); Aspartate Amino Transferase 22 U/L (5-31); Bilirubin Total 0.4 mg/dL (0.0-1.0); Blood Urea Nitrogen 17 mg/dL (9-16); Calcium 8.7 mg/dL (8.4-10.2); Carbon Dioxide 27 mmol/L (22-29); Chloride 108 mmol/L (96-108); Estimated Glomerular Filt Rate > 60; Glucose Random 92 mg/dL (60-115); Potassium 4.5 mmol/L (3.3-5.1); Sodium 141 mmol/L (135-145); Total Protein 6.7 g/dL (6.5-8.0)
[2023-08-28 11:54] LABS: Erythrocyte Sedimentation Rate 16 MM/HR (0-20)
[2023-09-01 16:34] LABS: Vitamin D 25-OH, D2 <4 ng/mL; Vitamin D 25-OH, D3 15 ng/mL; Vitamin D 25-OH, Total 15 ng/mL (30-100)
== END 2023-08-28 09:10 | disposition home or self-care (01) ==
LOC: HO.XRAY 09:09
PROVIDERS: Student in an Organized Health Care Education/Training Program; PCP Internal Medicine; Visit Provider Internal Medicine
DX: R06.02 Shortness of breath (principal); M06.09 Rheumatoid arthritis without rheumatoid factor, multiple sites; Z13.21 Encounter for screening for nutritional disorder
CPT/HCPCS: 36415; 71046; 80053; 82306; 85025; 85652; 86140

== ENCOUNTER 2023-09-10 11:11 | Outpatient (REF) | payer OTHER, SELFPAY ==
--- NOTE | ~2023-09-10 | XR_ITS ---
EXAMINATION: XR SACROILIAC JOINTS CLINICAL INFORMATION: Lower back pain. COMPARISON: None available. TECHNIQUE: AP and bilateral Judet views of the sacroiliac joints FINDINGS: Bones and soft tissues are normal. No fracture. Alignment is anatomic. Sacroiliac joint spaces are well-maintained without erosions or surrounding sclerosis. XR/XR sacroiliac joint min 3V IMPRESSION: Normal sacroiliac joints.
--- NOTE | ~2023-09-10 | XR_ITS ---
EXAMINATION: XR LUMBOSACRAL SPINE WITH OBLIQUES CLINICAL INFORMATION: Lower back pain. COMPARISON: None available. TECHNIQUE: AP, both oblique, and lateral views of the lumbar spine. Lateral view of the lumbosacral junction. FINDINGS: There is bony demineralization. There is a moderate thoracolumbar rotatory dextroscoliosis. At L2-L3, there is mild to moderate disc space narrowing. At L4-L5, there is a 5 mm anterolisthesis. The remaining disc spaces are relatively well-maintained. No acute fracture or spondylolisthesis is seen. The posterior elements are intact. There is multi-level lumbar facet arthropathy. The paravertebral soft tissues are unremarkable. There are aortoiliac atherosclerotic calcifications. There are multiple pelvic phleboliths. There are left upper quadrant bowel anastomotic staple lines. XR/XR lumbar spine 4V min IMPRESSION: 1. There is mild to moderate degenerative disc disease at L2-L3, and moderate degenerative disc disease is seen at L4-L5. 2. No acute fracture or spondylolisthesis is seen. 3. There is multi-level lumbar facet arthropathy. 4. There is a moderate thoracolumbar rotatory dextroscoliosis.
== END 2023-09-10 11:12 | disposition home or self-care (01) ==
LOC: HO.XRAY 11:11
PROVIDERS: PCP Internal Medicine; Visit Provider Student in an Organized Health Care Education/Training Program
DX: M06.09 Rheumatoid arthritis without rheumatoid factor, multiple sites (principal); M54.50 Low back pain, unspecified; M65.331 Trigger finger, right middle finger; Z79.631 Long term (current) use of antimetabolite agent
CPT/HCPCS: 72110; 72202; 99212

== ENCOUNTER 2023-09-10 11:11 | Outpatient (AMB) | payer OTHER, SELFPAY ==
--- NOTE | 2023-09-10 11:26 | MHC.OFFVIS ---
Intake Vital Signs 09/10/23 11:27 Height 5 ft 1 in Weight 144 lb 2.917 oz BMI 27.2 BP 134/72 Blood Pressure Location Rt brachial Position Sitting Pulse 63 Pulse Source Pulse Oximeter Pulse Oximetry (%) 96 Oxygen Delivery Method Room Air Intake Visit Reasons: RA Intake Note: Patient last seen 06/10/23 presents today for follow up and test results. Reports she had pneumonia just finished Zpak C/o back pain Director Of Manufacturing Required: No Accompanied by: Friend Allergies hydrochlorothiazide [HYDROCHLOROTHIAZIDE] Allergy (Severe, Verified 09/10/23 11:28) ANGIOEDEMA lisinopril [LISINOPRIL] Allergy (Severe, Verified 09/10/23 11:28) ANGIOEDEMA Sulfa (Sulfonamide Antibiotics) [SULFA (SULFONAMIDE ANTIBIOTICS)] Allergy (Severe, Verified 09/10/23 11:28) FACIAL SWELLING iron [IRON] Allergy (Intermediate, Verified 09/10/23 11:28) NAUSEA lactose [LACTOSE] Allergy (Intermediate, Verified 09/10/23 11:28) DIARRHEA sertraline [From ZOLOFT] Allergy (Intermediate, Verified 09/10/23 11:28) INSOMNIA codeine Allergy (Unknown, Verified 09/10/23 11:28) Unknown lobster Allergy (Uncoded 09/10/23 11:28) Anaphylaxis Medication List - Last Reconciled 09/10/23 by Fermin Lozada MD amlodipine 5 mg PO DAILY ascorbic acid (vitamin C) 1 g PO DAILY 90 days calcium citrate-vitamin D3 315 mg-6.25 mcg (250 unit) 1 tab PO DAILY cetirizine 10 mg PO DAILY PRN cholecalciferol (vitamin D3) (Vitamin D3) 50 mcg PO DAILY diclofenac sodium 1% 4 grams topical QID PRN 90 days dicyclomine 10 - 20 mg PO Q6H PRN epinephrine IM estradiol 0.01%(0.1mg/gram) vaginally daily; pea sized amount to urethra 30 days famotidine 20 mg PO DAILY folic acid 1 mg PO DAILY ipratropium bromide 1 spray intranasal TID PRN ketoconazole 2% appl topical BID methenamine hippurate 1 g PO DAILY 90 days methotrexate sodium 20 mg (8 x 2.5 mg) PO QWEEK mirabegron ER (Myrbetriq) 50 mg PO DAILY 90 days [id number]-FA-vit K 45 mg iron- 800 mcg-120 mcg (Bariatric Multivitamins) 1 cap PO DAILY pregabalin (Lyrica) 50 mg PO BID tizanidine 4 mg PO Q8H PRN trazodone 50 mg PO BEDTIME PRN HPI HPI Comments History of Present Illness Details 72-year-old female with seropositive RA returns for follow-up. She is on methotrexate 20 mg weekly folic acid 1 mg daily. She states that 2 weeks ago she was having right lower thoracic back pain as well as some shortness of breath without the fever. Chest x-ray showed signs suggestive of aspiration versus atelectasis. She was prescribe a Z-Shmuel by her PCP with resolution of her symptoms. She states that 4 days ago she started having right lower back pain radiating to her right buttock and across her low back. It does not radiate to the feet. Denied any incontinence. Denies any falls or overuse. Reclast infusion was uneventful. She had some generalized pains and headaches the next day then those symptoms went away. Can not think of any side effects related to methotrexate. She states that she has been having some triggering of her right middle finger. Initial history: This is a 72-year-old female who presents for evaluation of rheumatoid arthritis. In 2018 she was evaluated by Dr. Isaacs for bilateral knee pain and elevated ESR. Labs showed negative EROS/RF but showed moderately positive anti CCP. She was diagnosed with rheumatoid arthritis. She was started on methotrexate weekly. A bilateral hand ultrasound was unremarkable. Patient was not convinced that she had rheumatoid arthritis and stopped the methotrexate. Patient states that her daughter has psoriasis and psoriatic arthritis. She is unaware of any other family history of an autoimmune rheumatic disease. Over the last few months patient noted that she has been having bilateral hand stiffness, worse in the morning, lasting 30 minutes to 1 hour. She has difficulty making a full fist but no significant pain. The her right middle finger is painful. Over the last year she has been having bilateral foot pain. She went to urgent care once for left ankle and foot pain, there was no trauma preceding this. She states that she has had bilateral severe knee osteoarthritis and she is planned for bilateral knee replacements. She denies any history of Raynaud's. He denies any history of DVT/PE. In 2019 patient had a gastric bypass and has lost 200 lb. 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 she was eventually diagnosed with RSD of her right hand and right lower extremity. She was eventually referred to pain management and received a ganglion block but it was ineffective. Per patient it was too late. [facility] Medical History Vaginal prolapse Lesion of bladder Annual physical exam Nephrolithiasis UTI (urinary tract infection) Annual physical exam Protein deficiency Ventral hernia Binge-eating disorder, moderate Osteoarthritis of knees, bilateral Overweight BMI 25.0-25.9,adult Degenerative disc disease, cervical Spondylosis of cervical spine Obesity (BMI 30-39.9) Peptic ulcer disease Esophageal stricture Vitamin D deficiency Peripheral neuropathy GERD (gastroesophageal reflux disease) Hypercholesterolemia RSD (reflex sympathetic dystrophy) Peripheral vascular disease Anemia Small bowel obstruction Osteopenia History of esophageal dilatation Tubular adenoma of colon Obstructive sleep apnea Hypertension Hemorrhoids Deviated septum Impaired glucose tolerance History of duodenal ulcer Osteoarthritis of knees, bilateral COPD (chronic obstructive pulmonary disease) Surgical History Cystocele History of repair of hiatal hernia Hx of gastric bypass History of arthroscopy of left knee History of umbilical hernia repair History of tubal ligation History of hemorrhoidectomy History of nasal surgery History of tonsillectomy History of cholecystectomy Family History Father No problems noted. Mother No problems noted. Daughter Psoriatic arthritis Social History Housing: Apartment Alcohol intake: former Comment: pressure Patient Tobacco Use Status: Former Tobacco user Tobacco use type: Cigarette e-Cigarette/Vaping Use: Never Used Second Hand Smoke Exposure: No service: No Current occupational status: retired Gender identity: Female Cognitive needs: No Hearing needs: No Vision needs: Yes (glasses) Female Reproductive History Menstrual Age of Menarche: 10 Review of Systems Musc Reports back pain, Reports arthralgias, Reports joint swelling and Reports stiffness Physical Exam Vital Signs: Last Vital Signs Pulse 63 09/10/23 11:27 BP 134/72 09/10/23 11:27 Pulse Ox 96 09/10/23 11:27 Oxygen Delivery Method Room Air 09/10/23 11:27 BMI result Body Mass Index 27.2 Const General: cooperative, healthy appearing and comfortable Nutritional Appearance: overweight Orientation/consciousness: patient oriented x3 HEENT Head: Yes normocephalic and Yes atraumatic Mouth: moist mucous membranes Resp Effort & Inspection: normal respiratory effort and able to speak in complete sentences Auscultation: clear to auscultation bilaterally Cardio Rate: regular rate Rhythm: regular rhythm GI Palpation (GI): Soft to palpation Skin Other: Dry skin on both hands Neuro General: patient oriented x3 Extrem Other: Right 3rd flexor tendon tenderness and some triggering Mild left wrist swelling and pain with flexion and extension Normal Range of motion of both elbows and shoulders without pain Bilateral knee crepitus and pain with flexion Worse on the right Normal nailfold capillaroscopy Right lower lumbar paraspinal muscle tenderness Right buttock tenderness Positive straight leg raise test bilaterally Results Reviewed Results Reviewed: Labs in 2018 CCP 46 (moderate positive) EROS/RF negative Assessment & Plan Assessment & Plan (1) Rheumatoid arthritis: Comment: -ve RF++CCP dx 2018 MTX 2018 briefly DC by patient MTX restarted 03/2023, advanced to 20 mg 05/2023 effective Code(s): M06.9 - Rheumatoid arthritis, unspecified Qualifiers: Rheumatoid arthritis location: multiple sites Rheumatoid factor presence: without rheumatoid factor Qualified Code(s): M06.09 - Rheumatoid arthritis without rheumatoid factor, multiple sites Plan: This is a 72-year-old female with seropositive RA who presents for follow-up. On methotrexate 20 mg weekly plus folic acid 1 mg daily. On exam she has 2 tender joints and 1 swollen joint. Her RA Is well controlled overall with normalization of inflammatory markers. Continue current meds Labs before next visit in 3 months (2) Acute bilateral low back pain: Code(s): M54.50 - Low back pain, unspecified Qualifiers: Sciatica presence: without sciatica Qualified Code(s): M54.50 - Low back pain, unspecified Plan: Will check x-rays to evaluate for fracture. Prescribed a Medrol Dosepak. Advised patient to buy [id number] Salonpas patch. If no improvement, consider pain management evaluation (3) Osteoporosis: Comment: DEXA 10/2022 L-spine T-score-1.4 Left femur neck-2.7 Left femur total-2.2 History of wrist fracture Reclast 06/2023 Code(s): M81.0 - Age-related osteoporosis without current pathological fracture Qualifiers: Osteoporosis type: age-related Presence of current pathological fracture: without current pathological fracture Qualified Code(s): M81.0 - Age-related osteoporosis without current pathological fracture Plan: Reclast infusion was uneventful. 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 Such as steroid injection, occupational therapy. Patient is not interested in either. Advised patient to use finger splints Plan I spent 47 minutes reviewing patient's chart, evaluating patient, ordering diagnostic workup, counseling patient and documenting in the chart Orders: Orders Complete Blood Count Auto Diff 3 Months M06.09 - Rheumatoid arthritis without rheumatoid factor, multiple sites, Z79.631 - shelter (current) use of antimetabolite agent Comprehensive Met. Panel 3 Months M06.09 - Rheumatoid arthritis without rheumatoid factor, multiple sites, Z79.631 - shelter (current) use of antimetabolite agent C Reactive Protein 3 Months M06.09 - Rheumatoid arthritis without rheumatoid factor, multiple sites, Z79.631 - termite exterminator (current) use of antimetabolite agent Erythrocyte Sedimentation Rate 3 Months M06.09 - Rheumatoid arthritis without rheumatoid factor, multiple sites, Z79.631 - termite exterminator (current) use of antimetabolite agent XR sacroiliac joint min 3V Today M54.50 - Low back pain, unspecified XR lumbar spine 4V min Today M54.50 - Low back pain, unspecified Medications: New methylprednisolone (Medrol (Shmuel)) PO PER PKG DIR 21 ea 0RF Refilled methotrexate sodium Split dose into 4 tabs twice 10 hours apart 20 mg (8 x 2.5 mg) PO QWEEK 96 tabs 0RF I10 - Essential (primary) hypertension folic acid 1 mg PO DAILY 90 tabs 1RF Coding Level of Care Code Est Pt Level 5 (51445) Diagnoses Rheumatoid arthritis of multiple sites with negative rheumatoid factor M06.09 Rheumatoid arthritis location: multiple sites Rheumatoid factor presence: without rheumatoid factor Acute bilateral low back pain without sciatica M54.50 Sciatica presence: without sciatica Age-related osteoporosis without current pathological fracture M81.0 Osteoporosis type: age-related Presence of current pathological fracture: without current pathological fracture shelter methotrexate user Z79.631 Trigger finger, right middle finger M65.331
[2023-09-10 11:27] VITALS: BP 134/72; PULSE 63; O2SAT 96; BMI 27.2
== END 2023-09-10 11:54 | disposition home or self-care (01) ==
PROVIDERS: PCP Internal Medicine; Visit Provider Student in an Organized Health Care Education/Training Program
DX: M06.09 Rheumatoid arthritis without rheumatoid factor, multiple sites (principal); M54.50 Low back pain, unspecified; M81.0 Age-related osteoporosis without current pathological fracture; Z79.631 Long term (current) use of antimetabolite agent; M65.331 Trigger finger, right middle finger
CPT/HCPCS: 99215

== ENCOUNTER 2023-09-15 08:23 | Outpatient (AMB) | payer OTHER, SELFPAY ==
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
== END 2023-09-15 09:30 | disposition home or self-care (01) ==
PROVIDERS: PCP Internal Medicine; Visit Provider Counselor Mental Health
DX: F50.81 Binge eating disorder (principal); Z98.84 Bariatric surgery status
CPT/HCPCS: 99499

== ENCOUNTER → 2023-09-15 08:23 | Outpatient (BNVA) | payer OTHER, SELFPAY | PROVIDERS: PCP Internal Medicine; Visit Provider Counselor Mental Health ==

== ENCOUNTER 2023-09-30 13:53 | Outpatient (AMB) | payer OTHER, SELFPAY ==
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
[2023-09-30 14:03] VITALS: BP 150/76; PULSE 61; RESP 16; O2SAT 97; BMI 26.9
== END 2023-09-30 14:29 | disposition home or self-care (01) ==
PROVIDERS: PCP Internal Medicine; Referring Provider Student in an Organized Health Care Education/Training Program; Visit Provider Nurse Practitioner Family
DX: G89.4 Chronic pain syndrome (principal); M54.16 Radiculopathy, lumbar region; M51.36 Other intervertebral disc degeneration, lumbar region; M41.9 Scoliosis, unspecified; M43.16 Spondylolisthesis, lumbar region; M17.0 Bilateral primary osteoarthritis of knee; M25.561 Pain in right knee; M25.562 Pain in left knee
CPT/HCPCS: 99214

== ENCOUNTER → 2023-09-30 13:53 | Outpatient (BNVA) | payer OTHER, SELFPAY | PROVIDERS: PCP Internal Medicine; Referring Provider Student in an Organized Health Care Education/Training Program; Visit Provider Nurse Practitioner Family | DX: G89.4 Chronic pain syndrome (principal); M54.16 Radiculopathy, lumbar region; M51.36 Other intervertebral disc degeneration, lumbar region; M41.9 Scoliosis, unspecified; M43.16 Spondylolisthesis, lumbar region; M17.0 Bilateral primary osteoarthritis of knee | CPT/HCPCS: 99212 ==

== ENCOUNTER → 2023-10-06 08:31 | Outpatient (BNVA) | payer OTHER, SELFPAY | PROVIDERS: PCP Internal Medicine; Visit Provider Counselor Mental Health ==

== ENCOUNTER 2023-10-07 09:09 | Outpatient (REF) | payer OTHER, SELFPAY ==
[2023-10-07 10:12] LABS: Appearance Urine Turbid; Color Urine Yellow; Glucose Urine UA Negative (Negative); Leukocyte Esterase Urine Large (3+) (Negative); Nitrite Urine Positive (Negative); Specific Gravity - Urine 1.015 (1.005-1.025); UMIC TRIGGER UA YES; Urine Blood Large (3+) (Negative); Urine Ketones Negative (Negative); Urine Protein 30 (1+) mg/dL (Neg-Trace)
[2023-10-07 10:24] LABS: Bacteria Urine 4+ (None Seen); Hyaline Casts Urine 0-2 /LPF (0-2); Squamous Epithelial Cell Urine 0-2 /HPF (0-2); WBC Urine >50 /HPF (0-5)
== END 2023-10-07 09:10 | disposition home or self-care (01) ==
LOC: HO.LAB 09:09
PROVIDERS: PCP Internal Medicine; Visit Provider Nurse Practitioner Family
DX: N39.0 Urinary tract infection, site not specified (principal)
CPT/HCPCS: 81001; 87086; 87088

== ENCOUNTER 2023-10-13 08:32 | Outpatient (AMB) | payer OTHER, SELFPAY ==
--- NOTE | 2023-10-13 09:59 | MHC.WMTHER ---
Intake Intake Visit Reasons: (OV) PO GBP 02/10/19 Allergies hydrochlorothiazide [HYDROCHLOROTHIAZIDE] Allergy (Severe, Verified 09/10/23 11:28) ANGIOEDEMA lisinopril [LISINOPRIL] Allergy (Severe, Verified 09/10/23 11:28) ANGIOEDEMA Sulfa (Sulfonamide Antibiotics) [SULFA (SULFONAMIDE ANTIBIOTICS)] Allergy (Severe, Verified 09/10/23 11:28) FACIAL SWELLING iron [IRON] Allergy (Intermediate, Verified 09/10/23 11:28) NAUSEA lactose [LACTOSE] Allergy (Intermediate, Verified 09/10/23 11:28) DIARRHEA sertraline [From ZOLOFT] Allergy (Intermediate, Verified 09/10/23 11:28) INSOMNIA codeine Allergy (Unknown, Verified 09/10/23 11:28) Unknown lobster Allergy (Uncoded 09/10/23 11:28) Anaphylaxis PFSH Medical History Vaginal prolapse Lesion of bladder Annual physical exam Nephrolithiasis UTI (urinary tract infection) Annual physical exam Protein deficiency Ventral hernia Binge-eating disorder, moderate Osteoarthritis of knees, bilateral Overweight BMI 25.0-25.9,adult Degenerative disc disease, cervical Spondylosis of cervical spine Obesity (BMI 30-39.9) Peptic ulcer disease Esophageal stricture Vitamin D deficiency Peripheral neuropathy GERD (gastroesophageal reflux disease) Hypercholesterolemia RSD (reflex sympathetic dystrophy) Peripheral vascular disease Anemia Small bowel obstruction Osteopenia History of esophageal dilatation Tubular adenoma of colon Obstructive sleep apnea Hypertension Hemorrhoids Deviated septum Impaired glucose tolerance History of duodenal ulcer Osteoarthritis of knees, bilateral COPD (chronic obstructive pulmonary disease) Surgical History Cystocele History of repair of hiatal hernia Hx of gastric bypass History of arthroscopy of left knee History of umbilical hernia repair History of tubal ligation History of hemorrhoidectomy History of nasal surgery History of tonsillectomy History of cholecystectomy Family History Father No problems noted. Mother No problems noted. Daughter Psoriatic arthritis Social History Housing: Apartment Alcohol intake: former Comment: pressure Patient Tobacco Use Status: Former Tobacco user Tobacco use type: Cigarette e-Cigarette/Vaping Use: Never Used Second Hand Smoke Exposure: No service: No Current occupational status: retired Gender identity: Female Cognitive needs: No Hearing needs: No Vision needs: Yes (glasses) Female Reproductive History Menstrual Age of Menarche: 10 Behavioral Health Assessment Weight Management Therapy Therapy Notes Details Pt struggling with emotional eating. Has been eating peas with onions and mushrooms constantly and ice cream. Limited protein. Dealing with some difficult family problems that involves the courts, police, some saftey concerns, she is worried. Also is using a walker again which has been difficult for her to accept however realizes it is better than falling. Assessment & Plan Assessment & Plan (1) Binge-eating disorder, moderate: Code(s): F50.81 - Binge eating disorder (2) Hx of gastric bypass: Comment: January 2019 Code(s): Z98.84 - Bariatric surgery status Plan Pt post-op gastric bypass and struggling with her diet. She presents with some binging and then dumping symptoms which has led to nutritional deficiencies evidenced by her lab work. We talked about past childhood experiences and trauma, connected them with her current rel. with food. ( often was hungry as a child and had to find ways to feed herself). Patient lives alone and has limited day structure which further exacerbates food consumption. We talked about the senior center in her town and the services they offer. She might be interested. Also could benefit from group therapy support. Coding Level of Care Code Psytx 45 mins (99057) Diagnoses Binge-eating disorder, moderate F50.81 Hx of gastric bypass Z98.84 Time Spent (min) 50
== END 2023-10-13 09:59 | disposition home or self-care (01) ==
PROVIDERS: PCP Internal Medicine; Visit Provider Counselor Mental Health
DX: F50.81 Binge eating disorder (principal); Z98.84 Bariatric surgery status
CPT/HCPCS: 90834

== ENCOUNTER → 2023-10-13 08:32 | Outpatient (BNVA) | payer OTHER, SELFPAY | PROVIDERS: PCP Internal Medicine; Visit Provider Counselor Mental Health ==

== ENCOUNTER 2023-10-24 19:14 | Outpatient (REF) | payer OTHER, SELFPAY ==
--- NOTE | ~2023-10-24 | MR_ITS ---
MR LUMBAR SPINE WITHOUT CONTRAST CLINICAL INFORMATION: Intervertebral disc degeneration/lumbar region. COMPARISON: Lumbar spine radiographs 09/10/2023. TECHNIQUE: MRI of the lumbar spine was obtained using routine sequences without contrast. FINDINGS: There are 5 nonrib-bearing lumbar-type vertebral bodies. There is grade 1 degenerative anterolisthesis of L4 on L5 and L5 on S1. There is a rightward convex scoliotic curvature at the thoracolumbar junction. Mild Modic type I endplate signal changes at T12-L1. There is bone marrow edema within the L3-L4 facets bilaterally and the right L4-L5 facets that is most likely degenerative/inflammatory. There are no acute fractures. There is disc desiccation at all lumbar levels. Chronic inferior endplate Schmorl's node at T12 and chronic upper endplate Schmorl's node at L3. Conus terminates at the L2 level. A 3 cm left adrenal adenoma is again noted, better demonstrated on prior noncontrast CT. L1-L2: There is a small diffuse annular disc bulge without central canal stenosis and without foraminal stenosis. L2-L3: There is a small diffuse annular disc bulge and there is moderate bilateral facet arthropathy and ligamentum flavum thickening. There is no central canal stenosis. There is mild foraminal encroachment bilaterally. L3-L4: There is a diffuse annular disc bulge eccentric to the right side there is moderate bilateral facet arthropathy and ligamentum flavum thickening. There is no central canal stenosis. There is mild to moderate right and mild left foraminal stenosis. L4-L5: Grade 1 degenerative anterolisthesis with uncovered disc osteophyte. Severe bilateral facet arthropathy and ligamentum flavum thickening. Findings in concert result in moderate central canal stenosis, right subarticular zone stenosis with mass effect on the traversing right L5 nerve root, and mild to moderate bilateral foraminal stenosis without exiting nerve root compression. L5-S1: There is a diffuse disc osteophyte complex and there is severe bilateral facet arthropathy. There is no central canal stenosis. There is mild right-sided foraminal encroachment. MR/MR lumbar spine wo con IMPRESSION: Multilevel lumbar spondylosis that is greatest at L4-L5 where grade 1 degenerative anterolisthesis and advanced spondylitic changes result in moderate central canal stenosis, right subarticular zone stenosis with mass effect on the traversing right L5 nerve root, and mild to moderate bilateral foraminal stenosis without exiting nerve root compression. Additional spondylitic changes throughout the lumbar spine as discussed above.
== END 2023-10-24 19:15 | disposition home or self-care (01) ==
LOC: HO.MRI 19:14
PROVIDERS: PCP Internal Medicine; Visit Provider Nurse Practitioner Family
DX: M51.36 Other intervertebral disc degeneration, lumbar region (principal); M41.9 Scoliosis, unspecified; M54.16 Radiculopathy, lumbar region; M43.16 Spondylolisthesis, lumbar region
CPT/HCPCS: 72148

== ENCOUNTER 2023-10-27 09:20 | Outpatient (AMB) | payer OTHER, SELFPAY ==
--- NOTE | 2023-10-27 10:44 | MHC.WMTHER ---
Intake Intake Visit Reasons: (OV) PO GBP 02/10/19 Allergies hydrochlorothiazide [HYDROCHLOROTHIAZIDE] Allergy (Severe, Verified 09/10/23 11:28) ANGIOEDEMA lisinopril [LISINOPRIL] Allergy (Severe, Verified 09/10/23 11:28) ANGIOEDEMA Sulfa (Sulfonamide Antibiotics) [SULFA (SULFONAMIDE ANTIBIOTICS)] Allergy (Severe, Verified 09/10/23 11:28) FACIAL SWELLING iron [IRON] Allergy (Intermediate, Verified 09/10/23 11:28) NAUSEA lactose [LACTOSE] Allergy (Intermediate, Verified 09/10/23 11:28) DIARRHEA sertraline [From ZOLOFT] Allergy (Intermediate, Verified 09/10/23 11:28) INSOMNIA codeine Allergy (Unknown, Verified 09/10/23 11:28) Unknown lobster Allergy (Uncoded 09/10/23 11:28) Anaphylaxis PFSH Medical History Vaginal prolapse Lesion of bladder Annual physical exam Nephrolithiasis UTI (urinary tract infection) Annual physical exam Protein deficiency Ventral hernia Binge-eating disorder, moderate Osteoarthritis of knees, bilateral Overweight BMI 25.0-25.9,adult Degenerative disc disease, cervical Spondylosis of cervical spine Obesity (BMI 30-39.9) Peptic ulcer disease Esophageal stricture Vitamin D deficiency Peripheral neuropathy GERD (gastroesophageal reflux disease) Hypercholesterolemia RSD (reflex sympathetic dystrophy) Peripheral vascular disease Anemia Small bowel obstruction Osteopenia History of esophageal dilatation Tubular adenoma of colon Obstructive sleep apnea Hypertension Hemorrhoids Deviated septum Impaired glucose tolerance History of duodenal ulcer Osteoarthritis of knees, bilateral COPD (chronic obstructive pulmonary disease) Surgical History Cystocele History of repair of hiatal hernia Hx of gastric bypass History of arthroscopy of left knee History of umbilical hernia repair History of tubal ligation History of hemorrhoidectomy History of nasal surgery History of tonsillectomy History of cholecystectomy Family History Father No problems noted. Mother No problems noted. Daughter Psoriatic arthritis Social History Housing: Apartment Alcohol intake: former Comment: pressure Patient Tobacco Use Status: Former Tobacco user Tobacco use type: Cigarette e-Cigarette/Vaping Use: Never Used Second Hand Smoke Exposure: No service: No Current occupational status: retired Gender identity: Female Cognitive needs: No Hearing needs: No Vision needs: Yes (glasses) Female Reproductive History Menstrual Age of Menarche: 10 Behavioral Health Assessment Weight Management Therapy Therapy Notes Details Patient increased stress and frustration due to UTI again, antibiotics, yeast infection (ongoing medical issues). Assessment & Plan Assessment & Plan (1) Binge-eating disorder, moderate: Code(s): F50.81 - Binge eating disorder (2) Hx of gastric bypass: Comment: January 2019 Code(s): Z98.84 - Bariatric surgery status Plan Pt post-op gastric bypass and struggling with her diet. She presents with some binging and then dumping symptoms which has led to nutritional deficiencies evidenced by her lab work. We talked about past childhood experiences and trauma, connected them with her current rel. with food. ( often was hungry as a child and had to find ways to feed herself). Patient lives alone and has limited day structure which further exacerbates food consumption. We talked about the senior center in her town and the services they offer. She might be interested. Also could benefit from group therapy support. Coding Level of Care Code Psytx 45 mins (79638) Diagnoses Binge-eating disorder, moderate F50.81 Hx of gastric bypass Z98.84 Time Spent (min) 45
== END 2023-10-27 10:43 | disposition home or self-care (01) ==
PROVIDERS: PCP Internal Medicine; Visit Provider Counselor Mental Health
DX: F50.81 Binge eating disorder (principal); Z98.84 Bariatric surgery status
CPT/HCPCS: 90834

== ENCOUNTER → 2023-10-27 09:20 | Outpatient (BNVA) | payer OTHER, SELFPAY | PROVIDERS: PCP Internal Medicine; Visit Provider Counselor Mental Health ==

== ENCOUNTER 2023-10-30 08:30 | Outpatient (RCR) | payer OTHER, SELFPAY | END 2023-11-18 16:02 | disposition home or self-care (01) | LOC: HO.OT 08:30 | PROVIDERS: PCP Internal Medicine; Visit Provider Student in an Organized Health Care Education/Training Program | DX: M65.331 Trigger finger, right middle finger (principal) | CPT/HCPCS: 97110; 97140; 97166 ==

== ENCOUNTER 2023-10-31 08:20 | Outpatient (AMB) | payer OTHER, SELFPAY ==
[2023-10-31 08:28] VITALS: BP 129/69; PULSE 62; O2SAT 97; BMI 25.9
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
== END 2023-10-31 08:59 | disposition home or self-care (01) ==
PROVIDERS: PCP Internal Medicine; Visit Provider Nurse Practitioner Family
DX: G89.4 Chronic pain syndrome (principal); M54.16 Radiculopathy, lumbar region; M51.36 Other intervertebral disc degeneration, lumbar region; M41.9 Scoliosis, unspecified; M43.16 Spondylolisthesis, lumbar region; M17.0 Bilateral primary osteoarthritis of knee; M25.561 Pain in right knee; M25.562 Pain in left knee
CPT/HCPCS: 99214

== ENCOUNTER → 2023-10-31 08:20 | Outpatient (BNVA) | payer OTHER, SELFPAY | PROVIDERS: PCP Internal Medicine; Visit Provider Nurse Practitioner Family | DX: M54.16 Radiculopathy, lumbar region (principal); M51.36 Other intervertebral disc degeneration, lumbar region; G89.4 Chronic pain syndrome; M41.9 Scoliosis, unspecified; M43.16 Spondylolisthesis, lumbar region; M17.0 Bilateral primary osteoarthritis of knee; M25.561 Pain in right knee; M25.562 Pain in left knee | CPT/HCPCS: 99212 ==

== ENCOUNTER 2023-11-05 09:48 | Outpatient (AMB) | payer OTHER, SELFPAY ==
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
[2023-11-05 10:04] VITALS: BP 138/72; PULSE 62; RESP 16; O2SAT 95; BMI 26.7
== END 2023-11-05 10:41 | disposition home or self-care (01) ==
PROVIDERS: PCP Internal Medicine; Visit Provider Anesthesiology
DX: G89.4 Chronic pain syndrome (principal); M54.16 Radiculopathy, lumbar region; M25.561 Pain in right knee; M25.562 Pain in left knee; M51.36 Other intervertebral disc degeneration, lumbar region; M41.9 Scoliosis, unspecified; M43.16 Spondylolisthesis, lumbar region; M17.0 Bilateral primary osteoarthritis of knee
CPT/HCPCS: 20610; 99213

== ENCOUNTER → 2023-11-05 09:48 | Outpatient (BNVA) | payer OTHER, SELFPAY | PROVIDERS: PCP Internal Medicine; Visit Provider Anesthesiology | DX: M17.0 Bilateral primary osteoarthritis of knee (principal); G89.4 Chronic pain syndrome; M54.16 Radiculopathy, lumbar region; M51.36 Other intervertebral disc degeneration, lumbar region; M41.9 Scoliosis, unspecified; M43.16 Spondylolisthesis, lumbar region | CPT/HCPCS: 20610; 99212; J7325 ==

== ENCOUNTER 2023-12-02 11:25 | Outpatient (AMB) | payer OTHER, SELFPAY ==
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
[2023-12-02 11:34] VITALS: BP 156/82; PULSE 82; O2SAT 98; BMI 26.4
== END 2023-12-02 12:02 | disposition home or self-care (01) ==
PROVIDERS: PCP Internal Medicine; Visit Provider Nurse Practitioner Family
DX: M17.0 Bilateral primary osteoarthritis of knee (principal); M25.561 Pain in right knee; M25.562 Pain in left knee; M47.816 Spondylosis without myelopathy or radiculopathy, lumbar region
CPT/HCPCS: 99214

== ENCOUNTER → 2023-12-02 11:25 | Outpatient (BNVA) | payer OTHER, SELFPAY | PROVIDERS: PCP Internal Medicine; Visit Provider Nurse Practitioner Family | DX: M17.0 Bilateral primary osteoarthritis of knee (principal); M47.816 Spondylosis without myelopathy or radiculopathy, lumbar region | CPT/HCPCS: 99212 ==

== ENCOUNTER 2023-12-03 09:42 | Outpatient (AMB) | payer OTHER, SELFPAY ==
--- NOTE | 2023-12-03 16:33 | MHC.WMTHER ---
Intake Intake Visit Reasons: OV PO LSG 02/10/19 Allergies hydrochlorothiazide [HYDROCHLOROTHIAZIDE] Allergy (Severe, Verified 12/02/23 11:34) ANGIOEDEMA lisinopril [LISINOPRIL] Allergy (Severe, Verified 12/02/23 11:34) ANGIOEDEMA Sulfa (Sulfonamide Antibiotics) [SULFA (SULFONAMIDE ANTIBIOTICS)] Allergy (Severe, Verified 12/02/23 11:34) FACIAL SWELLING iron [IRON] Allergy (Intermediate, Verified 12/02/23 11:34) NAUSEA lactose [LACTOSE] Allergy (Intermediate, Verified 12/02/23 11:34) DIARRHEA sertraline [From ZOLOFT] Allergy (Intermediate, Verified 12/02/23 11:34) INSOMNIA codeine Allergy (Unknown, Verified 12/02/23 11:34) Unknown lobster Allergy (Uncoded 09/10/23 11:28) Anaphylaxis ON LICENSE OF [facility] Medical History (Updated 12/02/23 @ 21:11 by VIKY Patel) Osteoarthritis of knees, bilateral Vaginal prolapse Lesion of bladder Annual physical exam Nephrolithiasis UTI (urinary tract infection) Annual physical exam Protein deficiency Ventral hernia Binge-eating disorder, moderate Overweight BMI 25.0-25.9,adult Degenerative disc disease, cervical Spondylosis of cervical spine Obesity (BMI 30-39.9) Peptic ulcer disease Esophageal stricture Vitamin D deficiency Peripheral neuropathy GERD (gastroesophageal reflux disease) Hypercholesterolemia RSD (reflex sympathetic dystrophy) Peripheral vascular disease Anemia Small bowel obstruction Osteopenia History of esophageal dilatation Tubular adenoma of colon Obstructive sleep apnea Hypertension Hemorrhoids Deviated septum Impaired glucose tolerance History of duodenal ulcer Osteoarthritis of knees, bilateral COPD (chronic obstructive pulmonary disease) Surgical History Cystocele History of repair of hiatal hernia Hx of gastric bypass History of arthroscopy of left knee History of umbilical hernia repair History of tubal ligation History of hemorrhoidectomy History of nasal surgery History of tonsillectomy History of cholecystectomy Family History Father No problems noted. Mother No problems noted. Daughter Psoriatic arthritis Social History Housing: Apartment Alcohol intake: former Comment: pressure Patient Tobacco Use Status: Former Tobacco user Tobacco use type: Cigarette e-Cigarette/Vaping Use: Never Used Second Hand Smoke Exposure: No service: No Current occupational status: retired Gender identity: Female Cognitive needs: No Hearing needs: No Vision needs: Yes (glasses) Female Reproductive History Menstrual Age of Menarche: 10 Behavioral Health Assessment Weight Management Therapy Therapy Notes Details Patient reported not eating well, very little protein, does weigh herself daily and knows she needs to get back on track. discussed family stress. Assessment & Plan Assessment & Plan (1) Binge-eating disorder, moderate: Code(s): F50.81 - Binge eating disorder (2) Hx of gastric bypass: Comment: January 2019 Code(s): Z98.84 - Bariatric surgery status Plan Pt post-op gastric bypass and struggling with her diet. She presents with some binging and then dumping symptoms which has led to nutritional deficiencies evidenced by her lab work. We talked about past childhood experiences and trauma, connected them with her current rel. with food. ( often was hungry as a child and had to find ways to feed herself). Patient lives alone and has limited day structure which further exacerbates food consumption. We talked about the senior center in her town and the services they offer. She might be interested. Also could benefit from group therapy support. Coding Level of Care Code Psytx 45 mins (80605) Diagnoses Binge-eating disorder, moderate F50.81 Hx of gastric bypass Z98.84 Time Spent (min) 50
== END 2023-12-03 16:33 | disposition home or self-care (01) ==
PROVIDERS: PCP Internal Medicine; Visit Provider Counselor Mental Health
DX: F50.81 Binge eating disorder (principal); Z98.84 Bariatric surgery status
CPT/HCPCS: 90834

== ENCOUNTER → 2023-12-03 09:42 | Outpatient (BNVA) | payer OTHER, SELFPAY | PROVIDERS: PCP Internal Medicine; Visit Provider Counselor Mental Health ==

== ENCOUNTER 2023-12-11 11:59 | Outpatient (REF) | payer OTHER, SELFPAY ==
[2023-12-11 12:27] LABS: MANUAL DIFF FLAG NO
[2023-12-11 12:49] LABS: Basophils Percent Auto 0.4 % (0-2); Eosinophils Absolute Auto 0.1 X10*3/uL (0.0-0.4); Eosinophils Percent Auto 2.5 % (0-4); Hematocrit 34.9 % (37.0-47.0); Hemoglobin 11.2 g/dl (12.0-16.0); Imm Gran Abs Auto 0.01 X10*3/uL (0.00-0.03); Imm Gran Pct Auto 0.2 % (0.0-0.4); Lymphocytes Absolute Auto 1.3 X10*3/uL (1.2-4.9); Lymphocytes Percent Auto 28.6 % (20-40); Mean Corpuscular HGB Conc 32.1 g/dl (31.0-35.0); Mean Corpuscular Hemoglobin 28.5 pg (27.0-33.0); Mean Corpuscular Volume 88.8 fL (80.0-98.0); Mean Platelet Volume 10.9 fL (9.4-12.3); Monocytes Absolute Auto 0.4 X10*3/uL (0.1-1.2); Monocytes Percent Auto 9.4 % (2-11); Neutrophils Absolute Auto 2.6 x10*3/uL (2.0-8.3); Neutrophils Percent Auto 58.9 % (45-73); Platelet Count 199 X10*3/uL (160-400); Red Blood Count 3.93 X10*6/uL (4.20-5.50); Red Cell Distribution Width 15.7 % (11.0-16.0); White Blood Count 4.5 X10*3/uL (4.8-10.8)
[2023-12-11 13:36] LABS: Alanine Aminotransferase 21 U/L (0-31); Albumin Level 3.9 g/dL (3.5-5.0); Alkaline Phosphatase 112 U/L (39-117); Anion Gap 13 (12-20); Aspartate Amino Transferase 22 U/L (5-31); Bilirubin Total 0.3 mg/dL (0.0-1.0); Blood Urea Nitrogen 14 mg/dL (9-16); C Reactive Protein < 0.10 mg/dL (< or = 0.50); Calcium 8.8 mg/dL (8.4-10.2); Carbon Dioxide 25 mmol/L (22-29); Chloride 108 mmol/L (96-108); Estimated Glomerular Filt Rate > 60; Glucose Random 87 mg/dL (60-115); Potassium 4.8 mmol/L (3.3-5.1); Sodium 141 mmol/L (135-145); Total Protein 6.4 g/dL (6.5-8.0)
[2023-12-11 13:39] LABS: Erythrocyte Sedimentation Rate 19 MM/HR (0-20)
== END 2023-12-11 12:00 | disposition home or self-care (01) ==
LOC: HO.LAB 11:59
PROVIDERS: PCP Internal Medicine; Visit Provider Student in an Organized Health Care Education/Training Program
DX: M06.09 Rheumatoid arthritis without rheumatoid factor, multiple sites (principal); Z79.631 Long term (current) use of antimetabolite agent
CPT/HCPCS: 36415; 80053; 85025; 85652; 86140

== ENCOUNTER 2023-12-23 07:24 | Outpatient (AMB) | payer OTHER, SELFPAY ==
--- NOTE | 2023-12-23 07:30 | MHC.OFFVIS ---
Vital Signs 12/23/23 07:34 Height 5 ft 1 in Weight 144 lb 13.499 oz BMI 27.4 BP 132/64 Blood Pressure Location Lt brachial Position Sitting Respiration 16 Pulse 59 Pulse Source Pulse Oximeter Pulse Oximetry (%) 99 Oxygen Delivery Method Room Air Intake Visit Reasons: RA/LM Intake Note: Patient presents for RA. Allergies hydrochlorothiazide [HYDROCHLOROTHIAZIDE] Allergy (Severe, Verified 12/23/23 07:34) ANGIOEDEMA lisinopril [LISINOPRIL] Allergy (Severe, Verified 12/23/23 07:34) ANGIOEDEMA Sulfa (Sulfonamide Antibiotics) [SULFA (SULFONAMIDE ANTIBIOTICS)] Allergy (Severe, Verified 12/23/23 07:34) FACIAL SWELLING iron [IRON] Allergy (Intermediate, Verified 12/23/23 07:34) NAUSEA lactose [LACTOSE] Allergy (Intermediate, Verified 12/23/23 07:34) DIARRHEA sertraline [From ZOLOFT] Allergy (Intermediate, Verified 12/23/23 07:34) INSOMNIA codeine Allergy (Unknown, Verified 12/23/23 07:34) Unknown lobster Allergy (Uncoded 09/10/23 11:28) Anaphylaxis Medication List - Last Reconciled 12/23/23 by Fermin Lozada MD amlodipine 5 mg PO DAILY amoxicillin-pot clavulanate 875-125 mg 1 tab PO BID 14 days ascorbic acid (vitamin C) 1 g PO DAILY 90 days calcium citrate-vitamin D3 315 mg-6.25 mcg (250 unit) 1 tab PO DAILY cetirizine 10 mg PO DAILY PRN cholecalciferol (vitamin D3) (Vitamin D3) 50 mcg PO DAILY diclofenac sodium 1% 4 grams topical QID PRN 90 days dicyclomine 10 - 20 mg PO Q6H PRN epinephrine IM estradiol 0.01%(0.1mg/gram) vaginally daily; pea sized amount to urethra 30 days famotidine 20 mg PO DAILY fluconazole 150 mg PO ONCE 1 day folic acid 1 mg PO DAILY hydrocodone-acetaminophen 5-325 mg 1 tab PO BID PRN 10 days ipratropium bromide 1 spray intranasal TID PRN ketoconazole 2% appl topical BID lidocaine 5% leave on most painful area for up to 12 hrs topical 30 days methenamine hippurate 1 g PO DAILY 90 days methotrexate sodium 20 mg (8 x 2.5 mg) PO QWEEK methylprednisolone (Medrol (Shmuel)) PO PER PKG DIR mirabegron ER (Myrbetriq) 50 mg PO DAILY 90 days azibtgpyxaok-hew-ianp-FA-vit K 45 mg iron- 800 mcg-120 mcg (Bariatric Multivitamins) 1 cap PO DAILY nitrofurantoin monohyd/m-cryst 100 mg (Macrobid) 100 mg PO BID 14 days phenazopyridine (Pyridium) 100 mg PO TID PRN 5 days polyethylene glycol 3350 17 grams PO DAILY pregabalin (Lyrica) 50 mg PO BID [rollator walker with seat. As directed] tizanidine 4 mg PO Q8H PRN trazodone 50 mg PO BEDTIME PRN HPI Comments Details: 73-year-old female with seropositive RA returns for follow-up. She is on methotrexate 20 mg weekly folic acid 1 mg daily. She continues to have diffuse pain. She states that the only thing that does not hurt is her hair. She has been following up with pain management and received bilateral knee gel injections without relief. She continues to work with pain management and other procedures are planned. She went to occupational therapy and was taught some exercises that she does at home she also was given a ring splint to wear at night but she does not use it because it is not comfortable. Initial history: This is a 72-year-old female who presents for evaluation of rheumatoid arthritis. In 2018 she was evaluated by Dr. Isaacs for bilateral knee pain and elevated ESR. Labs showed negative EROS/RF but showed moderately positive anti CCP. She was diagnosed with rheumatoid arthritis. She was started on methotrexate weekly. A bilateral hand ultrasound was unremarkable. Patient was not convinced that she had rheumatoid arthritis and stopped the methotrexate. Patient states that her daughter has psoriasis and psoriatic arthritis. She is unaware of any other family history of an autoimmune rheumatic disease. Over the last few months patient noted that she has been having bilateral hand stiffness, worse in the morning, lasting 30 minutes to 1 hour. She has difficulty making a full fist but no significant pain. The her right middle finger is painful. Over the last year she has been having bilateral foot pain. She went to urgent care once for left ankle and foot pain, there was no trauma preceding this. She states that she has had bilateral severe knee osteoarthritis and she is planned for bilateral knee replacements. She denies any history of Raynaud's. He denies any history of DVT/PE. In 2019 patient had a gastric bypass and has lost 200 lb. 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 she was eventually diagnosed with RSD of her right hand and right lower extremity. She was eventually referred to pain management and received a ganglion block but it was ineffective. Per patient it was too late. [facility] Medical History Osteoarthritis of knees, bilateral Vaginal prolapse Lesion of bladder Annual physical exam Nephrolithiasis UTI (urinary tract infection) Annual physical exam Protein deficiency Ventral hernia Binge-eating disorder, moderate Overweight BMI 25.0-25.9,adult Degenerative disc disease, cervical Spondylosis of cervical spine Obesity (BMI 30-39.9) Peptic ulcer disease Esophageal stricture Vitamin D deficiency Peripheral neuropathy GERD (gastroesophageal reflux disease) Hypercholesterolemia RSD (reflex sympathetic dystrophy) Peripheral vascular disease Anemia Small bowel obstruction Osteopenia History of esophageal dilatation Tubular adenoma of colon Obstructive sleep apnea Hypertension Hemorrhoids Deviated septum Impaired glucose tolerance History of duodenal ulcer Osteoarthritis of knees, bilateral COPD (chronic obstructive pulmonary disease) Surgical History Cystocele History of repair of hiatal hernia Hx of gastric bypass History of arthroscopy of left knee History of umbilical hernia repair History of tubal ligation History of hemorrhoidectomy History of nasal surgery History of tonsillectomy History of cholecystectomy Family History Father No problems noted. Mother No problems noted. Daughter Psoriatic arthritis Social History Housing: Apartment Alcohol intake: former Comment: pressure Patient Tobacco Use Status: Former Tobacco user Tobacco use type: Cigarette e-Cigarette/Vaping Use: Never Used Second Hand Smoke Exposure: No service: No Current occupational status: retired Gender identity: Female Cognitive needs: No Hearing needs: No Vision needs: Yes (glasses) Female Reproductive History Menstrual Age of Menarche: 10 Review of Systems Musc Reports back pain, Reports arthralgias and Reports stiffness Psych Reports anxiety and Reports depression Physical Exam Vital Signs: Last Vital Signs Pulse 59 12/23/23 07:34 Resp 16 12/23/23 07:34 BP 132/64 12/23/23 07:34 Pulse Ox 99 12/23/23 07:34 Oxygen Delivery Method Room Air 12/23/23 07:34 BMI result Body Mass Index 27.4 Const General: cooperative, healthy appearing and comfortable Nutritional Appearance: overweight Orientation/consciousness: patient oriented x3 HEENT Head: Yes normocephalic and Yes atraumatic Mouth: moist mucous membranes Resp Effort & Inspection: normal respiratory effort and able to speak in complete sentences Auscultation: clear to auscultation bilaterally Cardio Rate: regular rate Rhythm: regular rhythm GI Palpation (GI): Soft to palpation Neuro General: patient oriented x3 Extrem Other: Right 3rd flexor tendon tenderness and some triggering Mild left wrist swelling and pain with flexion and extension Normal Range of motion of both elbows and shoulders without pain Bilateral knee crepitus and pain with flexion Worse on the right Normal nailfold capillaroscopy Results Reviewed Results Reviewed: Labs in 2018 CCP 46 (moderate positive) EROS/RF negative Assessment & Plan Assessment & Plan (1) Rheumatoid arthritis: Comment: -ve RF++CCP dx 2018 MTX 2018 briefly, DC by patient MTX restarted 03/2023, advanced to 20 mg 05/2023 effective Code(s): M06.9 - Rheumatoid arthritis, unspecified Category: Medical Qualifiers: Rheumatoid arthritis location: multiple sites Rheumatoid factor presence: without rheumatoid factor Qualified Code(s): M06.09 - Rheumatoid arthritis without rheumatoid factor, multiple sites Plan: This is a 73-year-old female with seropositive RA who presents for follow-up. On methotrexate 20 mg weekly plus folic acid 1 mg daily. Doing very well with no active synovitis. Inflammatory markers are normal Patient would like to reduce her medication. I think it is not unreasonable to lower her methotrexate dose Reduce methotrexate to 15 mg once weekly Continue folic acid 1 mg daily Labs before next visit in 4 months (2) Osteoporosis: Comment: DEXA 10/2022 L-spine T-score-1.4 Left femur neck-2.7 Left femur total-2.2 History of wrist fracture Reclast 06/2023 Code(s): M81.0 - Age-related osteoporosis without current pathological fracture Category: Medical Qualifiers: Osteoporosis type: age-related Presence of current pathological fracture: without current pathological fracture Qualified Code(s): M81.0 - Age-related osteoporosis without current pathological fracture Plan: Reclast infusion was uneventful. Continue Reclast yearly Patient is taking vitamin-D 2000 units daily. Advised patient to double up. 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 He is still not interested in an injection. Advised patient to wear Band-Aids around her PIP joint at night (5) Fibromyalgia, primary: Code(s): M79.7 - Fibromyalgia Category: Medical Plan: While patient has significant osteoarthritis affecting multiple joints, her pain is also exacerbated by fibromyalgia Discussed management of fibromyalgia with patient. Is a noninflammatory, non-autoimmune central afferent processing disorder leading to a diffuse pain syndrome. I suggested that patient try to address her underlying psychiatric issues, anxiety/depression. I suggested evaluation by a therapist and/or a psychiatrist. Try to follow sleep hygiene practices. She had OMID in the past but she feels that it resolved since she lost significant weight after bariatric surgery. Advised patient to consider repeat sleep study to rule out OMID. Patient would benefit from increased physical activity, either through formal physical therapy or by joining a gym. Advised patient that she should start activity slowly and increase as tolerated. Consider low-impact exercises such as swimming, aqua therapy stretching. Plan I spent 47 minutes reviewing patient's chart, evaluating patient, ordering diagnostic workup, counseling patient and documenting in the chart Orders: Orders Comprehensive Met. Panel 4 Months M06.09 - Rheumatoid arthritis without rheumatoid factor, multiple sites, Z79.631 - FPC (current) use of antimetabolite agent Vitamin D 25-OH (D2 and D3) 4 Months E55.9 - Vitamin D deficiency, unspecified Complete Blood Count Auto Diff 4 Months M06.09 - Rheumatoid arthritis without rheumatoid factor, multiple sites, Z79.631 - FPC (current) use of antimetabolite agent C Reactive Protein 4 Months M06.09 - Rheumatoid arthritis without rheumatoid factor, multiple sites, Z79.631 - FPC (current) use of antimetabolite agent Erythrocyte Sedimentation Rate 4 Months M06.09 - Rheumatoid arthritis without rheumatoid factor, multiple sites, Z79.631 - FPC (current) use of antimetabolite agent Medications: Changed From methotrexate sodium Split dose into 4 tabs twice 10 hours apart 20 mg (8 x 2.5 mg) PO QWEEK 96 tabs 0RF M06.09 - Rheumatoid arthritis without rheumatoid factor, multiple sites To methotrexate sodium 15 mg (6 x 2.5 mg) PO QWEEK 72 tabs 1RF M06.09 - Rheumatoid arthritis without rheumatoid factor, multiple sites From cholecalciferol (vitamin D3) (Vitamin D3) 50 mcg PO DAILY 90 caps 3RF To cholecalciferol (vitamin D3) (Vitamin D3) 50 mcg PO BID 180 caps 3RF Refilled folic acid 1 mg PO DAILY 90 tabs 1RF Discontinued methylprednisolone (Medrol (Shmuel)) Discontinued Reason: Patient Completed Course PO PER PKG DIR 21 ea 0RF amoxicillin-pot clavulanate 875-125 mg Discontinued Reason: Patient Completed Course 1 tab PO BID 14 days 28 tabs 0RF UTI Coding Level of Care Code Est Pt Level 5 (37630) Complex EM visit Add On G2211 Diagnoses Rheumatoid arthritis of multiple sites with negative rheumatoid factor M06.09 Rheumatoid arthritis location: multiple sites Rheumatoid factor presence: without rheumatoid factor Age-related osteoporosis without current pathological fracture M81.0 Osteoporosis type: age-related Presence of current pathological fracture: without current pathological fracture long 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
[2023-12-23 07:34] VITALS: BP 132/64; PULSE 59; RESP 16; O2SAT 99; BMI 27.4
== END 2023-12-23 08:05 | disposition home or self-care (01) ==
PROVIDERS: PCP Internal Medicine; Visit Provider Student in an Organized Health Care Education/Training Program
DX: M06.09 Rheumatoid arthritis without rheumatoid factor, multiple sites (principal); M81.0 Age-related osteoporosis without current pathological fracture; Z79.631 Long term (current) use of antimetabolite agent; M65.331 Trigger finger, right middle finger; M79.7 Fibromyalgia
CPT/HCPCS: 99215; G2211

== ENCOUNTER → 2023-12-23 07:24 | Outpatient (BNVA) | payer OTHER, SELFPAY | PROVIDERS: PCP Internal Medicine; Visit Provider Student in an Organized Health Care Education/Training Program | DX: M81.0 Age-related osteoporosis without current pathological fracture (principal); M06.09 Rheumatoid arthritis without rheumatoid factor, multiple sites; M65.331 Trigger finger, right middle finger; M79.7 Fibromyalgia; Z79.631 Long term (current) use of antimetabolite agent | CPT/HCPCS: 99212 ==

== ENCOUNTER 2024-01-09 08:16 | Outpatient (AMB) | payer OTHER, SELFPAY ==
[2024-01-09 08:19] VITALS: BP 122/68; PULSE 62; O2SAT 99; BMI 26.5
--- NOTE | 2024-01-09 08:19 | MHC.PC.OV ---
Vital Signs 01/09/24 08:19 Height 5 ft 1 in Weight 140 lb 0.1 oz BMI 26.5 BP 122/68 Blood Pressure Location Lt brachial Position Sitting Pulse 62 Pulse Source Pulse Oximeter Pulse Oximetry (%) 99 Oxygen Delivery Method Room Air Intake Visit Reasons: 3mth f/u - see comments Volleyball Player Required: No Allergies hydrochlorothiazide [HYDROCHLOROTHIAZIDE] Allergy (Severe, Verified 01/09/24 08:19) ANGIOEDEMA lisinopril [LISINOPRIL] Allergy (Severe, Verified 01/09/24 08:19) ANGIOEDEMA Sulfa (Sulfonamide Antibiotics) [SULFA (SULFONAMIDE ANTIBIOTICS)] Allergy (Severe, Verified 01/09/24 08:19) FACIAL SWELLING iron [IRON] Allergy (Intermediate, Verified 01/09/24 08:19) NAUSEA lactose [LACTOSE] Allergy (Intermediate, Verified 01/09/24 08:19) DIARRHEA sertraline [From ZOLOFT] Allergy (Intermediate, Verified 01/09/24 08:19) INSOMNIA codeine Allergy (Unknown, Verified 01/09/24 08:19) Unknown lobster Allergy (Uncoded 01/09/24 08:19) Anaphylaxis Tobacco use date assessed: 08/28/23 Fall risk assessment: No Falls in past year Last assessed Fall Risk: 01/09/24 Dental Screening Dental Screen Date: 05/29/23 HPI 3mth f/u - see comments HPI Details 73-year-old overweight female(noted 4 lb weight loss) with nephrolithiasis rheumatoid arthritis history of gastric bypass hypercholesterolemia hypertension COPD coming in for follow-up. August 2023 last seen bone density is up-to-date 11/12/2022. Rheumatology notes appreciated 12/23/2023 on methotrexate 20 mg weekly plus folic acid decrease to 50 mg once weekly. As for osteoporosis on Reclast. Patient has was advised to get a repeat sleep study. Patient also is being followed up by pain management had Synvisc bilateral injections knee 11/13/2023 which did not relieve interested in diagnostic genicular nerve blocks for potential genicular RFA. Patient also had an MRI of the lumbar October 2023Multilevel lumbar spondylosis that is greatest at L4-L5 where grade 1 degenerative anterolisthesis and advanced spondylitic changes result in moderate central canal stenosis, right subarticular zone stenosis with mass effect on the traversing right L5 nerve root, and mild to moderate bilateral foraminal stenosis without exiting nerve root compression. Additional spondylitic changes throughout the lumbar spine as discussed above. complains also of memory problem and concern on this [facility] Medical History (Updated 01/09/24 @ 09:01 by Dwight Nicole MD) Osteopenia Osteoarthritis of knees, bilateral Vaginal prolapse Lesion of bladder Annual physical exam Nephrolithiasis UTI (urinary tract infection) Annual physical exam Protein deficiency Ventral hernia Binge-eating disorder, moderate Overweight BMI 25.0-25.9,adult Degenerative disc disease, cervical Spondylosis of cervical spine Obesity (BMI 30-39.9) Peptic ulcer disease Esophageal stricture Vitamin D deficiency Peripheral neuropathy GERD (gastroesophageal reflux disease) Hypercholesterolemia RSD (reflex sympathetic dystrophy) Peripheral vascular disease Anemia Small bowel obstruction Osteopenia History of esophageal dilatation Tubular adenoma of colon Obstructive sleep apnea Hypertension Hemorrhoids Deviated septum Impaired glucose tolerance History of duodenal ulcer Osteoarthritis of knees, bilateral COPD (chronic obstructive pulmonary disease) Surgical History Cystocele History of repair of hiatal hernia Hx of gastric bypass History of arthroscopy of left knee History of umbilical hernia repair History of tubal ligation History of hemorrhoidectomy History of nasal surgery History of tonsillectomy History of cholecystectomy Family History Father No problems noted. Mother No problems noted. Daughter Psoriatic arthritis Social History Housing: Apartment Alcohol intake: former Comment: pressure Patient Tobacco Use Status: Former Tobacco user Tobacco use type: Cigarette e-Cigarette/Vaping Use: Never Used Second Hand Smoke Exposure: No service: No Current occupational status: retired Gender identity: Female Cognitive needs: No Hearing needs: No Vision needs: Yes (glasses) Female Reproductive History Menstrual Age of Menarche: 10 Questionnaire Thrive Questionnaire Date Thrive assessed: 08/28/23 AUDIT C Alcohol Use Questionnaire (AUDIT-C) 1. How often do you have a drink containing alcohol?: Never 3. How often do you have six or more drinks on one occasion?: Never Total Score: 0 JOSE ARMANDO-7 AMB Questionnaire JOSE ARMANDO-7 Date JOSE ARMANDO - 7 assessed: 05/29/23 Source: Developed by Drs. Jordan Elise, Sherri Loo, David Ross and colleagues, with an educational edna from [employer]. Physical exam (Primary Care) Vital Signs: Last Vital Signs Pulse 62 01/09/24 08:19 BP 122/68 01/09/24 08:19 Pulse Ox 99 01/09/24 08:19 Oxygen Delivery Method Room Air 01/09/24 08:19 BMI result Body Mass Index 26.5 Tobacco/Smoking Status: Tobacco use Status Tobacco use date assessed 08/28/23 01/09/24 08:25 Patient Tobacco Use Status Former Tobacco user 01/09/24 08:25 Tobacco use type Cigarette 01/09/24 08:25 e-Cigarette/Vaping Use Never Used 01/09/24 08:25 Thrive Assessment: Date of Thrive Assessment Date Thrive assessed 08/28/23 01/09/24 08:25 Const General: alert; No acute distress Eyes Conjunctivae: conjunctivae normal Resp Auscultation: clear to auscultation bilaterally Cardio Rate: regular rate Rhythm: regular rhythm GI Inspection: Yes normal to inspection Extrem General: Yes normal to inspection and No edema Assessment and Plan Assessment & Plan (1) Lumbar degenerative disc disease: Code(s): M51.36 - Other intervertebral disc degeneration, lumbar region Plan: Keep active on Lyrica will increase the dose. (2) Osteoporosis: Comment: DEXA 10/2022 L-spine T-score-1.4 Left femur neck-2.7 Left femur total-2.2 History of wrist fracture Reclast 06/2023 Code(s): M81.0 - Age-related osteoporosis without current pathological fracture Qualifiers: Osteoporosis type: age-related Presence of current pathological fracture: without current pathological fracture Qualified Code(s): M81.0 - Age-related osteoporosis without current pathological fracture Plan: Patient follows up with Rheumatology and receives Reclast (3) Rheumatoid arthritis: Comment: -ve RF++CCP dx 2018 MTX 2018 briefly, DC by patient MTX restarted 03/2023, advanced to 20 mg 05/2023 effective Code(s): M06.9 - Rheumatoid arthritis, unspecified Qualifiers: Rheumatoid arthritis location: multiple sites Rheumatoid factor presence: without rheumatoid factor Qualified Code(s): M06.09 - Rheumatoid arthritis without rheumatoid factor, multiple sites Plan: Patient follows up with Rheumatology on methotrexate and folic acid (4) Hx of gastric bypass: Comment: January 2019 Code(s): Z98.84 - Bariatric surgery status Plan: Continue to follow-up with weight management (5) GERD (gastroesophageal reflux disease): Code(s): K21.9 - Gastro-esophageal reflux disease without esophagitis Plan: Avoid the foods that causes that usually spicy foods, tomato products, juices, coffee, soda and foods that your sensitive to. After eating do not lie down, allow 3-4 hours before in lie down. And keep the head of bed above 30 degrees to avoid the acid from going up. (6) Hypercholesterolemia: Code(s): E78.00 - Pure hypercholesterolemia, unspecified Plan: Avoid fried foods, chicken skin, eggs, butter margarine, pastries and meat. Be it pork or beef they have a lot of cholesterol LDL goal of less than 130 and triglyceride of less than 150. Patient needs to have blood work done (7) Anemia: Code(s): D64.9 - Anemia, unspecified Plan: Chronic and stable continue to monitor (8) Hypertension: Comment: Stress test nuclear October 2012 normal Code(s): I10 - Essential (primary) hypertension Qualifiers: Hypertension type: essential hypertension Qualified Code(s): I10 - Essential (primary) hypertension Plan: Continue with blood pressure medication. Decrease salt intake and exercise on amlodipine 5 mg once a day (9) Osteoarthritis of knees, bilateral: Code(s): M17.0 - Bilateral primary osteoarthritis of knee Plan: Patient is being followed up by pain management and planned injections. (10) Cognitive and behavioral changes: Code(s): R41.89 - Other symptoms and signs involving cognitive functions and awareness; R46.89 - Other symptoms and signs involving appearance and behavior Plan: Advised patient that we will work this up with a CT scan and blood work and urinalysis. Will also do a referral to Neurology That we will work this up Orders: Orders Complete Blood Count Auto Diff Today E78.00 - Pure hypercholesterolemia, unspecified Reticulocyte Count Today E78.00 - Pure hypercholesterolemia, unspecified IRON PROFILE Today E78.00 - Pure hypercholesterolemia, unspecified Lipid Panel Today E78.00 - Pure hypercholesterolemia, unspecified Thyroid Stimulating Hormone Today E78.00 - Pure hypercholesterolemia, unspecified Vitamin B12 and Folate Today E78.00 - Pure hypercholesterolemia, unspecified Hemoglobin A1c Today E78.00 - Pure hypercholesterolemia, unspecified Magnesium Today E78.00 - Pure hypercholesterolemia, unspecified CT head/brain wo IV con Today R41.89 - Other symptoms and signs involving cognitive functions and awareness, R46.89 - Other symptoms and signs involving appearance and behavior UA CC w/rflx Micro + Cult Today R30.0 - Dysuria, R41.89 - Other symptoms and signs involving cognitive functions and awareness, R46.89 - Other symptoms and signs involving appearance and behavior XR knee RT 4V Today M17.0 - Bilateral primary osteoarthritis of knee Comprehensive Met. Panel Today E78.00 - Pure hypercholesterolemia, unspecified Free T4 (Free Thyroxine) Today E78.00 - Pure hypercholesterolemia, unspecified Ferritin Today E78.00 - Pure hypercholesterolemia, unspecified Vitamin D 25-OH Total Today E78.00 - Pure hypercholesterolemia, unspecified Phosphorus Today E78.00 - Pure hypercholesterolemia, unspecified Referrals Neurology Referral R41.89 - Other symptoms and signs involving cognitive functions and awareness, R46.89 - Other symptoms and signs involving appearance and behavior Medications: Changed From pregabalin (Lyrica) 50 mg PO BID 60 caps 0RF M17.0 - Bilateral primary osteoarthritis of knee To pregabalin 75 mg PO BID 60 caps 0RF M17.0 - Bilateral primary osteoarthritis of knee From trazodone 50 mg PO BEDTIME PRN 90 tabs 2RF sleep G47.00 - Insomnia, unspecified To trazodone 100 mg PO BEDTIME PRN 30 tabs 2RF sleep G47.00 - Insomnia, unspecified Coding Level of Care Code Est Pt Level 4 (79670) Diagnoses Lumbar degenerative disc disease M51.36 Age-related osteoporosis without current pathological fracture M81.0 Osteoporosis type: age-related Presence of current pathological fracture: without current pathological fracture Rheumatoid arthritis of multiple sites with negative rheumatoid factor M06.09 Rheumatoid arthritis location: multiple sites Rheumatoid factor presence: without rheumatoid factor Hx of gastric bypass Z98.84 GERD (gastroesophageal reflux disease) K21.9 Hypercholesterolemia E78.00 Anemia D64.9 Essential hypertension I10 Hypertension type: essential hypertension Osteoarthritis of knees, bilateral M17.0 Cognitive and behavioral changes R41.89; R46.89
== END 2024-01-09 09:04 | disposition home or self-care (01) ==
PROVIDERS: PCP Internal Medicine; Visit Provider Internal Medicine
DX: M51.36 Other intervertebral disc degeneration, lumbar region (principal); M81.0 Age-related osteoporosis without current pathological fracture; M06.09 Rheumatoid arthritis without rheumatoid factor, multiple sites; Z98.84 Bariatric surgery status; K21.9 Gastro-esophageal reflux disease without esophagitis; E78.00 Pure hypercholesterolemia, unspecified; D64.9 Anemia, unspecified; I10 Essential (primary) hypertension; M17.0 Bilateral primary osteoarthritis of knee; R41.89 Other symptoms and signs involving cognitive functions and awareness; R46.89 Other symptoms and signs involving appearance and behavior
CPT/HCPCS: 99214

== ENCOUNTER 2024-01-14 07:46 | Outpatient (REF) | payer OTHER, SELFPAY ==
--- NOTE | ~2024-01-14 | FL_ITS ---
EXAMINATION: XR FLUOROSCOPY UPPER GI WITH AIR CLINICAL INFORMATION: Dysphagia, history of endoscopic dilations. History of Clemente-en-Y gastric bypass COMPARISON: Upper GI 2020, 2018, 2015 TECHNIQUE: Fluoroscopic air contrast upper GI examination was performed utilizing standard techniques with thin and thick barium and effervescent granules. Numerous spot images were obtained. FINDINGS: Moderate to advanced degenerative spondylosis of the cervical spine spanning C4-C7 is noted with disc space narrowing and anterior disc osteophytes. Stairstep mild retrolistheses of C3 on C4, C4 and C5 present, degenerative. Mild reversal of the normal cervical lordosis. Lateral cine images of the oropharynx and hypopharynx demonstrate normal swallow mechanism with normal epiglottic inversion and soft palate elevation. No tracheal penetration, glottic or subglottic aspiration identified. No nasopharyngeal reflux present. There is narrowing of the cervical esophagus just below the hypopharynx due to an anterior cervical web (RF 1-3, image 34). There is mild cricopharyngeal achalasia. Dual and single contrast images of the esophagus demonstrate mildly tortuous course, but normal caliber, contour, and mucosal pattern. No evidence of stricture, mass, or ulcerations identified. There is to and fro motion of the barium column with nonpropulsive tertiary contractions noted throughout the esophagus. There is a probable pulsion diverticulum just above the GE junction. The GE junction appears patent without significant narrowing. There is a small type I hiatal hernia present. No significant gastroesophageal reflux was seen during the course of the examination and on reflux views. Dual contrast and single contrast images of the stomach demonstrated post surgical changes consistent with prior history of Clemente-en-Y gastric bypass. The gastrojejunostomy is widely patent, without evidence of stricture. Evaluation of the gastric pouch mucosa is limited due to its position posterior to the jejunum. There are a few foci of contrast point suggesting shallow submucosal apthous ulcers. Contrast freely passed into the alimentary limb without delay. The imaged jejunum has a normal fold pattern and caliber. FLUOROSCOPY TIME: 3 minutes 35 seconds Number of Spot Images: 5 Number of Cine: 13 DOSE AREA PRODUCT: 1372 uGy-m2 (microgray-meter squared) FL/FL barium swallow with air IMPRESSION: 1. Significant narrowing of the cervical esophagus just below the upper esophageal sphincter due to anterior cervical web. 2. Mild cricopharyngeal achalasia. 3. Esophageal dysmotility and mild tortuosity. GE junction is mildly narrowed but patent. Pulsion diverticulum just above the GE junction. 4. Small type I hiatal hernia. 5. Post surgical changes consistent with prior history of Clemente-en-Y gastric bypass. Evaluation of the gastric pouch mucosa demonstrates foci of contrast pooling suggestive of submucosal apthous-type ulcers. The gastrojejunostomy is patent without evidence of stricture. This procedure was performed by Tyshawn Jones PA-C, and supervised by Dr. Tim Electronically signed by: Yaniv Tim MD 01/16/2024 12:26 PM EDT
== END 2024-01-14 07:47 | disposition home or self-care (01) ==
LOC: HO.XRAY 07:46
PROVIDERS: PCP Internal Medicine; Visit Provider Internal Medicine
DX: R13.14 Dysphagia, pharyngoesophageal phase (principal); K22.2 Esophageal obstruction
CPT/HCPCS: 74221

== ENCOUNTER → 2024-01-14 07:48 | Outpatient (BNV) | payer OTHER, SELFPAY | PROVIDERS: PCP Internal Medicine; Visit Provider Radiology Diagnostic Radiology | DX: R13.10 Dysphagia, unspecified (principal); Z98.84 Bariatric surgery status | CPT/HCPCS: 74246 ==

== ENCOUNTER 2024-02-10 07:16 | Outpatient (REF) | payer OTHER, SELFPAY ==
--- NOTE | ~2024-02-10 | CT_ITS ---
EXAMINATION CT HEAD WITHOUT CONTRAST CLINICAL INFORMATION: Symptoms involving cognitive function and awareness COMPARISON: None TECHNIQUE: CT of the head was performed without intravenous contrast. Reformatted axial, coronal, and sagittal images were reviewed. This CT examination was performed using dose optimization techniques as appropriate, variously including the following: *Automated exposure control *Adjustment of mA and/or kV according to patient size (this includes techniques or standardized protocols for targeted exams where dose is matched to indication/reason for exam; i.e. extremities or head) *Use of iterative reconstruction technique DLP: 618 mGy-cm FINDINGS: No intracranial hemorrhage, extra-axial fluid collection, or midline shift is identified. Odonnell-white matter differentiation is preserved. The ventricles are within normal limits. Basal cisterns are within normal limits. Paranasal sinuses are clear. Mastoid air cells and middle ear cavities are clear. No acute calvarial fractures. CT/CT head/brain wo IV con IMPRESSION: No intracranial abnormality. Electronically signed by: Kali Prater DO 02/15/2024 11:16 AM EDT
== END 2024-02-10 07:17 | disposition home or self-care (01) ==
LOC: HO.CT 07:16
PROVIDERS: PCP Internal Medicine; Visit Provider Internal Medicine
DX: R41.89 Other symptoms and signs involving cognitive functions and awareness (principal); R46.89 Other symptoms and signs involving appearance and behavior
CPT/HCPCS: 70450

== ENCOUNTER 2024-02-23 06:16 | Day surgery (SDC) | payer OTHER, SELFPAY ==
[2024-02-19 16:06] VITALS: BMI 27.0
--- NOTE | 2024-02-20 09:20 | P.CONAN_ITS ---
Documented by User: Nia Davis NP 02/20/24 09:27 HPI - Anesthesia Eval Consult details Narrative: 73yo F for Upper Endoscopy with Piloric Balloon PMFSH Active Problems Active Problems: All Active Problems Cognitive and behavioral changes (Acute) Fibromyalgia, primary (Acute) Lumbar spondylosis (Acute) Bilateral knee pain (Acute) Spondylolisthesis of lumbar region (Acute) Scoliosis of thoracolumbar spine (Acute) Lumbar degenerative disc disease (Acute) Lumbar radiculopathy (Acute) Chronic pain syndrome (Acute) Acute bilateral low back pain (Acute) SOB (shortness of breath) (Acute) Trigger finger, right middle finger (Acute) Dysphagia (Acute) Urinary frequency (Acute) Cystitis (Acute) detention methotrexate user (Acute) Osteoporosis (Acute) Left foot pain (Acute) Rheumatoid arthritis (Acute) Recurrent urinary tract infection (Acute) Bilateral renal stones (Acute) Insomnia (Acute) Seroma of digestive system after non-digestive system procedure (Acute) Bile salt-induced diarrhea (Acute) Peripheral vascular disease (Acute) Bladder problem (Acute) Vitamin A deficiency (Acute) Vitamin D deficiency (Acute) Panniculitis (Acute) Alkaline phosphatase elevation (Acute) Impacted cerumen of both ears (Acute) Urinary incontinence (Acute) Abdominal pain (Acute) Abdominal pain (Acute) Intestinal malabsorption following gastrectomy (Acute) Dysuria (Acute) Fracture of proximal phalanx of right middle finger (Acute) Closed displaced fracture of neck of right fifth metacarpal bone (Acute) Distal radius fracture, right (Acute) Allergic rhinitis (Acute) Osteoarthritis of knees, bilateral (Acute) Annual physical exam (Acute) Nephrolithiasis (Acute) RSD (reflex sympathetic dystrophy) (Acute) Hx of gastric bypass (Acute) Degenerative disc disease, cervical (Acute) Spondylosis of cervical spine (Acute) GERD (gastroesophageal reflux disease) (Acute) Hypercholesterolemia (Acute) Hypertension (Acute) Osteoarthritis of knees, bilateral (Acute) COPD (chronic obstructive pulmonary disease) (Acute) Past Medical History Medical History Overactive bladder Bowel obstruction Pleurisy Sleep apnea Hypokalemia Diabetes Angioedema Arthritis Anxiety IBS (irritable bowel syndrome) Hyperlipidemia Duodenal ulcer Hiatal hernia Lesion of bladder Nephrolithiasis UTI (urinary tract infection) Annual physical exam Protein deficiency Ventral hernia Binge-eating disorder, moderate Osteoarthritis of knees, bilateral Overweight BMI 25.0-25.9,adult Osteopenia Annual physical exam Degenerative disc disease, cervical Spondylosis of cervical spine Obesity (BMI 30-39.9) Vaginal prolapse Peptic ulcer disease Esophageal stricture Vitamin D deficiency Peripheral neuropathy GERD (gastroesophageal reflux disease) Hypercholesterolemia RSD (reflex sympathetic dystrophy) Peripheral vascular disease Anemia Small bowel obstruction Osteopenia History of esophageal dilatation Tubular adenoma of colon Obstructive sleep apnea Hypertension Hemorrhoids Deviated septum Impaired glucose tolerance History of duodenal ulcer Osteoarthritis of knees, bilateral COPD (chronic obstructive pulmonary disease) Family History Family History Father No problems noted. Mother No problems noted. Daughter Psoriatic arthritis Family history of problems with anesthesia: No Surgical History Surgical History Hx of lumpectomy H/O colonoscopy History of esophagogastroduodenoscopy (EGD) Cystocele History of repair of hiatal hernia Hx of gastric bypass History of arthroscopy of left knee History of umbilical hernia repair History of tubal ligation History of hemorrhoidectomy History of nasal surgery History of tonsillectomy History of cholecystectomy History of Problems with Anesthesia: No Social History Social History Housing: Apartment Alcohol intake: former Comment: pressure Patient Tobacco Use Status: Former Tobacco user Tobacco use type: Cigarette e-Cigarette/Vaping Use: Never Used Second Hand Smoke Exposure: No Have you been hit, kicked, punched, or otherwise hurt by someone within the past year? If so, by whom?: No Are you DNR?: Yes Advance Directives: No Advance Directives Information Provided: Yes service: No Current occupational status: retired Gender identity: Female Cognitive needs: No Hearing needs: No Vision needs: Yes (glasses) Meds Allergies Allergy/AdvReac Type Severity Reaction Status Date / Time hydrochlorothiazide Allergy Severe ANGIOEDEMA Verified 02/02/24 10:08 [HYDROCHLOROTHIAZIDE] lisinopril [LISINOPRIL] Allergy Severe ANGIOEDEMA Verified 02/02/24 10:08 Sulfa (Sulfonamide Allergy Severe FACIAL Verified 02/02/24 10:08 Antibiotics) SWELLING [SULFA (SULFONAMIDE ANTIBIOTICS)] iron [IRON] Allergy Intermediate NAUSEA Verified 02/02/24 10:08 lactose [LACTOSE] Allergy Intermediate DIARRHEA Verified 02/02/24 10:08 sertraline [From ZOLOFT] Allergy Intermediate INSOMNIA Verified 02/02/24 10:08 codeine Allergy Unknown Unknown Verified 02/02/24 10:08 lobster Allergy Anaphylaxis Uncoded 02/02/24 10:08 Home Medications ?Medication ?Instructions ?Recorded ?Confirmed ?Last Taken ?Type calcium citrate 315 mg 1 tab PO DAILY 08/09/22 02/19/24 Unknown History calcium-vitamin D3 6.25 mcg (250 unit) tablet dicyclomine 10 mg capsule 10 - 20 mg PO Q6H PRN cramps 04/04/23 02/19/24 Unknown History epinephrine 0.3 mg/0.3 mL IM 04/04/23 12/23/23 Unknown History injection, auto-injector famotidine 20 mg tablet 20 mg PO BEDTIME 04/04/23 02/19/24 02/23/24 History acetaminophen 500 mg tablet 500 mg PO Q6H PRN Pain 02/19/24 02/19/24 Unknown History ascorbic acid (vitamin C) 1,000 mg 1,000 mg PO DAILY 02/19/24 02/19/24 Unknown History tablet cetirizine 10 mg tablet 10 mg PO DAILY allergies 02/19/24 02/19/24 Unknown History d-mannose ea 02/19/24 Unknown History diphenhydramine 25 2 tab PO BEDTIME PRN Insomnia 02/19/24 02/19/24 Unknown History mg-acetaminophen 500 mg tablet (Tylenol PM Extra Strength) fluticasone propionate 50 1 spray intranasal DAILY 02/19/24 02/19/24 02/23/24 History mcg/actuation nasal spray,suspension ipratropium bromide 0.02 % 2.5 ml inhalation Q8-10H PRN 02/19/24 02/19/24 Unknown History solution for inhalation Shortness Of Breath Or Wheezing loperamide 2 mg tablet (Imodium 2 mg PO QID PRN Diarrhea 02/19/24 02/19/24 Unknown History A-D) losartan 100 mg tablet 100 mg PO DIRECTED 02/19/24 02/19/24 Unknown History methenamine hippurate 1 gram tablet 1 g PO BID 02/19/24 02/19/24 Unknown History ondansetron 4 mg disintegrating 4 mg PO Q6H PRN Nausea And Vomiting 02/19/24 02/19/24 Unknown History tablet simethicone 125 mg tablet 125 mg PO QIDACHS PRN Abdominal 02/19/24 02/19/24 Unknown History Discomfort trazodone 100 mg tablet 50 mg PO BEDTIME PRN sleep 02/19/24 02/19/24 Unknown History turmeric root extract 500 mg 500 mg PO DAILY 02/19/24 02/19/24 01/22/24 History capsule vitamins A,C,K-sjlg-rimuyt 2,148 2 tab PO BID 02/19/24 02/19/24 Unknown History mcg-113 mg-45 mg-17.4 mg tablet (PreserVision AREDS) Exam Height,Weight and Vital Signs: Height 5 ft 1 in Weight 64.864 kg Pertinent Lab Results Pertinent Lab Results: Laboratory Tests 12/11/23 12:02 WBC 4.5 L Hgb 11.2 L Hct 34.9 L Plt Count 199 Sodium 141 Potassium 4.8 Chloride 108 Carbon Dioxide 25 BUN 14 Creatinine 0.87 Narrative Narrative: EKG 2022 Vent. Rate : 060 BPM Atrial Rate : 060 BPM P-R Int : 132 ms QRS Dur : 086 ms QT Int : 422 ms P-R-T Axes : 072 006 017 degrees QTc Int : 422 ms Normal sinus rhythm Inferior infarct (cited on or before 04-FEB-2019) Abnormal ECG When compared with ECG of 28-SEP-2019 13:51, Criteria for Anterior infarct are no longer Present Criteria for Anterolateral infarct are no longer Present T wave inversion less evident in Anterior leads Assessment and Plan Assessment Anesthesia Assessment: Chart Reviewed Final Anesthetic Review Family History of Problems with Anesthesia: No History of Problems with Anesthesia: No Documented by User: Amie Mercado MD 02/23/24 08:02 [facility] Past Medical History Medical History Overactive bladder Bowel obstruction Pleurisy Sleep apnea Hypokalemia Diabetes Angioedema Arthritis Anxiety IBS (irritable bowel syndrome) Hyperlipidemia Duodenal ulcer Hiatal hernia Lesion of bladder Nephrolithiasis UTI (urinary tract infection) Annual physical exam Protein deficiency Ventral hernia Binge-eating disorder, moderate Osteoarthritis of knees, bilateral Overweight BMI 25.0-25.9,adult Osteopenia Annual physical exam Degenerative disc disease, cervical Spondylosis of cervical spine Obesity (BMI 30-39.9) Vaginal prolapse Peptic ulcer disease Esophageal stricture Vitamin D deficiency Peripheral neuropathy GERD (gastroesophageal reflux disease) Hypercholesterolemia RSD (reflex sympathetic dystrophy) Peripheral vascular disease Anemia Small bowel obstruction Osteopenia History of esophageal dilatation Tubular adenoma of colon Obstructive sleep apnea Hypertension Hemorrhoids Deviated septum Impaired glucose tolerance History of duodenal ulcer Osteoarthritis of knees, bilateral COPD (chronic obstructive pulmonary disease) Family History Family History Father No problems noted. Mother No problems noted. Daughter Psoriatic arthritis Surgical History Surgical History Hx of lumpectomy H/O colonoscopy History of esophagogastroduodenoscopy (EGD) Cystocele History of repair of hiatal hernia Hx of gastric bypass History of arthroscopy of left knee History of umbilical hernia repair History of tubal ligation History of hemorrhoidectomy History of nasal surgery History of tonsillectomy History of cholecystectomy Social History Social History Housing: Apartment Alcohol intake: former Comment: pressure Patient Tobacco Use Status: Former Tobacco user Tobacco use type: Cigarette e-Cigarette/Vaping Use: Never Used Second Hand Smoke Exposure: No Have you been hit, kicked, punched, or otherwise hurt by someone within the past year? If so, by whom?: No Are you DNR?: Yes Advance Directives: No Advance Directives Information Provided: Yes service: No Current occupational status: retired Gender identity: Female Cognitive needs: No Hearing needs: No Vision needs: Yes (glasses) Meds Allergies Allergy/AdvReac Type Severity Reaction Status Date / Time hydrochlorothiazide Allergy Severe ANGIOEDEMA Verified 02/02/24 10:08 [HYDROCHLOROTHIAZIDE] lisinopril [LISINOPRIL] Allergy Severe ANGIOEDEMA Verified 02/02/24 10:08 Sulfa (Sulfonamide Allergy Severe FACIAL Verified 02/02/24 10:08 Antibiotics) SWELLING [SULFA (SULFONAMIDE ANTIBIOTICS)] iron [IRON] Allergy Intermediate NAUSEA Verified 02/02/24 10:08 lactose [LACTOSE] Allergy Intermediate DIARRHEA Verified 02/02/24 10:08 sertraline [From ZOLOFT] Allergy Intermediate INSOMNIA Verified 02/02/24 10:08 codeine Allergy Unknown Unknown Verified 02/02/24 10:08 lobster Allergy Anaphylaxis Uncoded 02/02/24 10:08 Home Medications ?Medication ?Instructions ?Recorded ?Confirmed ?Last Taken ?Type calcium citrate 315 mg 1 tab PO DAILY 08/09/22 02/19/24 Unknown History calcium-vitamin D3 6.25 mcg (250 unit) tablet dicyclomine 10 mg capsule 10 - 20 mg PO Q6H PRN cramps 04/04/23 02/19/24 Unknown History epinephrine 0.3 mg/0.3 mL IM 04/04/23 12/23/23 Unknown History injection, auto-injector famotidine 20 mg tablet 20 mg PO BEDTIME 04/04/23 02/19/24 02/23/24 History acetaminophen 500 mg tablet 500 mg PO Q6H PRN Pain 02/19/24 02/19/24 Unknown History ascorbic acid (vitamin C) 1,000 mg 1,000 mg PO DAILY 02/19/24 02/19/24 Unknown History tablet cetirizine 10 mg tablet 10 mg PO DAILY allergies 02/19/24 02/19/24 Unknown History d-mannose ea 02/19/24 Unknown History diphenhydramine 25 2 tab PO BEDTIME PRN Insomnia 02/19/24 02/19/24 Unknown History mg-acetaminophen 500 mg tablet (Tylenol PM Extra Strength) fluticasone propionate 50 1 spray intranasal DAILY 02/19/24 02/19/24 02/23/24 History mcg/actuation nasal spray,suspension ipratropium bromide 0.02 % 2.5 ml inhalation Q8-10H PRN 02/19/24 02/19/24 Unknown History solution for inhalation Shortness Of Breath Or Wheezing loperamide 2 mg tablet (Imodium 2 mg PO QID PRN Diarrhea 02/19/24 02/19/24 Unknown History A-D) losartan 100 mg tablet 100 mg PO DIRECTED 02/19/24 02/19/24 Unknown History methenamine hippurate 1 gram tablet 1 g PO BID 02/19/24 02/19/24 Unknown History ondansetron 4 mg disintegrating 4 mg PO Q6H PRN Nausea And Vomiting 02/19/24 02/19/24 Unknown History tablet simethicone 125 mg tablet 125 mg PO QIDACHS PRN Abdominal 02/19/24 02/19/24 Unknown History Discomfort trazodone 100 mg tablet 50 mg PO BEDTIME PRN sleep 02/19/24 02/19/24 Unknown History turmeric root extract 500 mg 500 mg PO DAILY 02/19/24 02/19/24 01/22/24 History capsule vitamins A,C,P-iikb-vnaghq 2,148 2 tab PO BID 02/19/24 02/19/24 Unknown History mcg-113 mg-45 mg-17.4 mg tablet (PreserVision AREDS) Exam Airway Mallampati Class: II (edentulous) TM Dist: >3cm Neck ROM: Full Denture: Upper and Lower Loose/Missing/Broken Teeth: Yes, Upper and Lower Heart: RRR Lungs: CTA Assessment and Plan Assessment Anesthesia Assessment: Anesthesia Plan Discussed Final Anesthetic Review NPO: Yes ASA Class: II Final Preanesthetic Review: Meds/Allgs Chart Reviewed, Consent Obtained/Reviewed and Anes Risks/Benef Reviewed Patient Risk: Low Procedure Risk: Intermediate Anesthetic Plan Anesthetic Plan: MAC: Disposition: Standard PACU
[2024-02-23 06:21] VITALS: BP 149/76; PULSE 63; RESP 20; TEMP 36.4; O2SAT 96; BMI 27.1
[2024-02-23] MEDS: Lactated Ringers 1,000 ML 100 ML IVCONT (06:43)
[2024-02-23 08:16] VITALS: BP 100/49; PULSE 69; RESP 18; TEMP 36.4; O2SAT 98
--- NOTE | 2024-02-23 08:24 | PM.OP ---
Brief Operative Note Date of Service: 02/23/24 Pre-op diagnosis: Dysphagia Post-op diagnosis: other (Proximal and distal esophageal strictures) Procedure: EGD with balloon dilation of UES with a 10mm to 11mm to 11.5mm balloon and balloon dilation of the EG Junction with an 18 to 19mm balloon, and biopsies Surgeon: Jordan Sanchez MD Anesthesia: MAC Was an After School Program Assistant used for this Procedure?: No Estimated blood loss (mL): 2.0 Pathology: other (A. Esophagus 20 to 25cm) Condition: stable Disposition: PACU
[2024-02-23 08:31] VITALS: BP 139/62; PULSE 79; RESP 16; O2SAT 95
[2024-02-23 08:45] VITALS: BP 143/76; PULSE 64; RESP 16; TEMP 36.4; O2SAT 97
--- NOTE | 2024-02-23 09:17 | OP_ITS ---
DATE OF SERVICE: 02/23/2024 SURGEON: Jordan Sanchez MD INDICATIONS: The patient presents for evaluation of dysphagia and abnormal barium swallow. Full consent has been obtained from her for this, including risks of bleeding and perforation. PREOPERATIVE DIAGNOSIS: POSTOPERATIVE DIAGNOSIS: PROCEDURE PERFORMED: Esophagogastroduodenoscopy with balloon dilation and biopsies ESTIMATED BLOOD LOSS: COMPLICATIONS: ANESTHESIA: Monitored anesthesia care. ASSISTANTS: SPECIMENS: PREOPERATIVE DIAGNOSES: Dysphagia and abnormal barium swallow. POSTOPERATIVE DIAGNOSES: Dysphagia and abnormal barium swallow, upper esophageal web, distal esophageal stricture, small hiatal hernia, rule out eosinophilic esophagitis. DESCRIPTION OF PROCEDURE: The patient was placed in the left lateral decubitus position. The Olympus video gastroscope was passed in the posterior oropharynx. The upper esophageal sphincter was visualized and immediately beneath this was a fibrotic, benign-appearing web without any overlying mucosal abnormalities. With fairly gentle pressure, I was able to pop the scope past it. The scope was advanced to the distal esophagus, which appeared at 36 cm. There appeared to be some evidence of a mild fibrotic stricture at this level, but it allowed easy passage of the scope. She had a small gastric remnant, and the anastomosis from her previous gastric bypass appeared normal with some retained suture material. The small bowel limb appeared normal. The anastomosis did not have any sign of ulceration nor stricture. The gastric remnant appeared normal. I did use a [employer] incremental balloon to dilate the gastroesophageal junction from 18 mm to 19 mm at the recommended pressure for between 30 and 60 seconds each. Post dilation, there was some heme noted and some mild disruption of the stricture. The scope was definitely able to pass easily into and out of the gastric remnant. The esophageal mucosa appeared normal. The area of the proximal esophageal mucosa appeared normal, without any rings. I did obtain 3 biopsies between 20 and 25 cm to rule out eosinophilic esophagitis. The very proximal most portion of the upper esophageal sphincter with insufflation of air still seemed to have some evidence of a narrowing. I did use a [employer] pyloric balloon to dilate this from 10 mm to 11 mm at the recommended pressure for between 30 and 60 seconds each. I did attempt to go up to 12 mm, but the balloon would not go past 11.5 mm due to resistance. Post-dilation, it was easier to get the scope past, but there still seemed to be some residual stricture there. The scope was withdrawn from the patient. She tolerated the procedure well and was returned to the recovery area in stable condition. IMPRESSION: 1. Proximal esophageal web and/or stricture, status post balloon dilation. 2. Distal esophageal stricture, status post balloon dilation. 3. Rule out eosinophilic esophagitis. 4. Small hiatal hernia. 5. Normal gastric remnant and gastric bypass anastomosis with retained suture. PLAN: The patient will be switched from her H2 jb to a course of omeprazole. If she does not improve with her swallowing or things relapse fairly quickly, I would repeat the dilation with a larger balloon and/or use a Savary dilator. If things are stable, she will otherwise see me on a p.r.n. basis, but she was advised to call if she continues to have problems with her swallowing. She was advised not to use any aspirin and NSAIDs for at least a week. This has been discussed with her friend. MD BRISA Ojeda/TANYA / [phone] MTDD
== END 2024-02-23 09:06 | disposition home or self-care (01) ==
PROVIDERS: PCP Internal Medicine; Visit Provider Internal Medicine
PROC: (CPT 43249; principal; 2024-02-23 07:30)
DX: R13.14 Dysphagia, pharyngoesophageal phase (principal); K22.2 Esophageal obstruction; K44.9 Diaphragmatic hernia without obstruction or gangrene; K21.9 Gastro-esophageal reflux disease without esophagitis; K58.0 Irritable bowel syndrome with diarrhea; Z98.0 Intestinal bypass and anastomosis status; Z98.84 Bariatric surgery status; G90.50 Complex regional pain syndrome I, unspecified; I10 Essential (primary) hypertension; D64.9 Anemia, unspecified; E11.9 Type 2 diabetes mellitus without complications; M81.0 Age-related osteoporosis without current pathological fracture; M06.9 Rheumatoid arthritis, unspecified; J45.909 Unspecified asthma, uncomplicated; Z79.51 Long term (current) use of inhaled steroids; Z79.899 Other long term (current) drug therapy; Z88.2 Allergy status to sulfonamides; Z98.890 Other specified postprocedural states; Z87.891 Personal history of nicotine dependence
CPT/HCPCS: 43249; 43239; 88305; C1726; J2250; J2704

== ENCOUNTER 2024-04-14 07:31 | Outpatient (AMB) | payer OTHER, SELFPAY ==
--- NOTE | 2024-04-14 07:49 | A.OFFVIS_ITS ---
Intake Visit Reasons: 6m/PVR Intake Note: Patient is present for follow up recurrent uti, incontinence Urology Medications: estradiol cream, myrbetriq, methenamine, Vitamin C Blood Thinner: none PVR: 0ml's Chemist Proteins Required: No Accompanied by: Self / Same As Patient Allergies hydrochlorothiazide [HYDROCHLOROTHIAZIDE] Allergy (Severe, Verified 04/14/24 08:20) ANGIOEDEMA lisinopril [LISINOPRIL] Allergy (Severe, Verified 04/14/24 08:20) ANGIOEDEMA Sulfa (Sulfonamide Antibiotics) [SULFA (SULFONAMIDE ANTIBIOTICS)] Allergy (Severe, Verified 04/14/24 08:20) FACIAL SWELLING iron [IRON] Allergy (Intermediate, Verified 04/14/24 08:20) NAUSEA lactose [LACTOSE] Allergy (Intermediate, Verified 04/14/24 08:20) DIARRHEA sertraline [From ZOLOFT] Allergy (Intermediate, Verified 04/14/24 08:20) INSOMNIA codeine Allergy (Unknown, Verified 04/14/24 08:20) Unknown lobster Allergy (Uncoded 04/14/24 08:20) Anaphylaxis Medication List - Last Reconciled 04/14/24 by VIKY Garcia-RUBEN acetaminophen 500 mg PO Q6H PRN amlodipine 5 mg PO DAILY ascorbic acid (vitamin C) 1,000 mg PO DAILY 90 days calcium citrate-vitamin D3 315 mg-6.25 mcg (250 unit) 1 tab PO DAILY cetirizine 10 mg PO DAILY cholecalciferol (vitamin D3) (Vitamin D3) 50 mcg PO BID d-mannose ea diclofenac sodium 1% 4 grams topical QID PRN 90 days dicyclomine 10 - 20 mg PO Q6H PRN diphenhydramine-acetaminophen 25-500 mg (Tylenol PM Extra Strength) 2 tabs PO BEDTIME PRN epinephrine IM famotidine 20 mg PO BEDTIME fluticasone propionate 50 mcg/actuation 1 spray intranasal DAILY ipratropium bromide 2.5 mL inhalation Q8-10H PRN loperamide (Imodium A-D) 2 mg PO QID PRN losartan 100 mg PO DIRECTED methenamine hippurate 1 g PO DAILY 90 days methotrexate sodium 15 mg (6 x 2.5 mg) PO QWEEK mirabegron ER (Myrbetriq) 50 mg PO DAILY 90 days ondansetron 4 mg PO Q6H PRN pregabalin 75 mg PO BID [rollator walker with seat. As directed] simethicone 125 mg PO QIDACHS PRN tizanidine 4 mg PO Q8H PRN trazodone 50 mg PO BEDTIME PRN turmeric root extract 500 mg PO DAILY vitamins A,C,N-awau-rcgrfu 2,148 mcg-113 mg-45 mg-17.4mg (PreserVision AREDS) 2 tabs PO BID HPI Comments Details: María is a very pleasant [address] Nicole. She has a past medical history of binge eating disorder, osteoarthritis, overweight, degenerative disc disease, obesity, peptic ulcer disease, esophageal stricture, vitamin-D deficiency, peripheral neuropathy, GERD, hypercholesteremia, peripheral vascular disease, OMID, hemorrhoids, and COPD. She presents to the office today for follow-up of her recurrent urinary tract infections and cystitis. In discussion with the patient today she reports to be doing and feeling well. She denies having had any UTIs and or UTI like symptoms since her last office visit here. She reports compliance with Estrace cream, methenamine, vitamin-C, and Myrbetriq as prescribed. She currently denies any bothersome urinary issues or concerns. Previous workup has included an in office cystoscopy with Dr. Chandra for recurrent urinary tract infections at which time office cystoscopy noted flattened erythematous lesion right lateral wall > 2 cm--to <5 cm. She then underwent cystoscopy with bladder biopsy under sedation. Bladder biopsy noted cystitis. In office urinalysis results reviewed with the patient today. PVR 0 mL. Previous workup has included a retrop eritoneal ultrasound noting nonobstructive echogenic stone lower pole right kidney. Left kidney is unremarkable. She has a past medical history of mesh being inserted with Dr. Chandler as well as InterStim however InterStim was removed related to infection. She reports having a cystocele and rectocele repair with Dr. Ayers in the past. Patient also reports having performed pelvic therapy in the past as well. She otherwise offers no other issues or concerns at this time. [facility] Medical History Overactive bladder Bowel obstruction Pleurisy Sleep apnea Hypokalemia Diabetes Angioedema Arthritis Anxiety IBS (irritable bowel syndrome) Hyperlipidemia Duodenal ulcer Hiatal hernia Lesion of bladder Nephrolithiasis UTI (urinary tract infection) Annual physical exam Protein deficiency Ventral hernia Binge-eating disorder, moderate Osteoarthritis of knees, bilateral Overweight BMI 25.0-25.9,adult Osteopenia Annual physical exam Degenerative disc disease, cervical Spondylosis of cervical spine Obesity (BMI 30-39.9) Vaginal prolapse Peptic ulcer disease Esophageal stricture Vitamin D deficiency Peripheral neuropathy GERD (gastroesophageal reflux disease) Hypercholesterolemia RSD (reflex sympathetic dystrophy) Peripheral vascular disease Anemia Small bowel obstruction Osteopenia History of esophageal dilatation Tubular adenoma of colon Obstructive sleep apnea Hypertension Hemorrhoids Deviated septum Impaired glucose tolerance History of duodenal ulcer Osteoarthritis of knees, bilateral COPD (chronic obstructive pulmonary disease) Surgical History Hx of lumpectomy H/O colonoscopy History of esophagogastroduodenoscopy (EGD) Cystocele History of repair of hiatal hernia Hx of gastric bypass History of arthroscopy of left knee History of umbilical hernia repair History of tubal ligation History of hemorrhoidectomy History of nasal surgery History of tonsillectomy History of cholecystectomy Family History Father No problems noted. Mother No problems noted. Daughter Psoriatic arthritis Social History Housing: Apartment Alcohol intake: former Comment: pressure Patient Tobacco Use Status: Former Tobacco user Tobacco use type: Cigarette e-Cigarette/Vaping Use: Never Used Second Hand Smoke Exposure: No service: No Current occupational status: retired Gender identity: Female Cognitive needs: No Hearing needs: No Vision needs: Yes (glasses) Female Reproductive History Menstrual Age of Menarche: 10 Review of Systems Const Reports as per HPI Eyes Reports no additional complaints ENT Reports no additional complaints Card Reports as per HPI Resp Reports as per HPI GI Reports as per HPI Reports as per HPI Musc Reports as per HPI Psych Reports as per HPI Endo Reports no additional complaints Gold/Lymph Reports no additional complaints Aller/Immun Reports no additional complaints Physical Exam Const General: cooperative, healthy appearing, comfortable, no acute distress, well developed, alert and awake Nutritional Appearance: overweight Orientation/consciousness: patient oriented x3 Limitations: no limitations HEENT Head: Yes normocephalic and Yes atraumatic Mouth: moist mucous membranes Eyes General: appearance normal, both eyes and all related structures Neck Neck: Yes normal visual inspection and Yes trachea midline Chest Chest palpation & inspection: normal inspection of the chest Resp Effort & Inspection: normal respiratory effort and able to speak in complete sentences Auscultation: clear to auscultation bilaterally Cardio Rate: regular rate Rhythm: regular rhythm GI Other: patient reports seroma to abdominal area. Palpation (GI): Soft to palpation General: Yes no CVA tenderness Back/Spine/Pelvis Back: no CVA tenderness Neuro General: patient oriented x3 Extrem Other: Right 3rd flexor tendon tenderness and some triggering Mild left wrist swelling and pain with flexion and extension Normal Range of motion of both elbows and shoulders without pain Bilateral knee crepitus and pain with flexion Worse on the right Normal nailfold capillaroscopy General: Yes normal to inspection Psych Appearance: grossly normal and well kempt Mental Status: mental status grossly normal Speech and movement: Normal speech and movement present Affect: normal affect Attitude: cooperative Thought process: Normal thought process present Thought content: Normal thought content present Insight: Fair insight present (Psych) Judgement: Fair judgement present (Psych) Office Procedures Post Void Residual Post Residual Void Post Void Residual (PVR): 0 [id number] Void Residual by ultrasound Results AMB Urinalysis, Automated UA Leukoctes 15 Walt/uL Last Edit by Juan Francisco Medel on 04/14/24 08:07 UA Nitrite Negative Last Edit by [employer] Gianfranco on 04/14/24 08:07 UA Urobilinogen 0.2 mg/dL Last Edit by [employer] System[employer]ie Medel on 04/14/24 08:07 UA Protein 0 mg/dL Last Edit by Juan Francisco Medel on 04/14/24 08:07 UA pH 6.0 Last Edit by [employer]ie Medel on 04/14/24 08:07 UA Blood 0 Bo/uL Last Edit by [employer]ie Medel on 04/14/24 08:07 UA Specific [place] 1.020 Last Edit by Juan Francisco Medel on 04/14/24 08:07 UA Ketone Last Edit by Juan Francisco Medel on 04/14/24 08:07 UA Bilirubin 0 mg/dL Last Edit by Juan Francisco Medel on 04/14/24 08:07 UA Glucose 0 mg/dL Last Edit by Juan Francisco Medel on 04/14/24 08:07 Results Reviewed Results Reviewed: Laboratory Last Values Urine pH (Auto) 6.0 04/14/24 08:06 Specific [place] (Auto) 1.020 04/14/24 08:06 Urine Protein (Auto) 0 mg/dL 04/14/24 08:06 Glucose (UA)(Auto) 0 mg/dL 04/14/24 08:06 Urine Blood (Auto) 0 Bo/uL 04/14/24 08:06 Urine Nitrite (Auto) Negative 04/14/24 08:06 Urine Bilirubin (Auto) 0 mg/dL 04/14/24 08:06 Urine Urobilinogen (Auto) 0.2 mg/dL 04/14/24 08:06 Leukocyte Esterase (Auto) 15 Walt/uL 04/14/24 08:06 Assessment & Plan Assessment & Plan (1) Cystitis: Code(s): N30.90 - Cystitis, unspecified without hematuria Category: Medical (2) Urinary frequency: Code(s): R35.0 - Frequency of micturition Category: Medical (3) Recurrent urinary tract infection: Code(s): N39.0 - Urinary tract infection, site not specified Category: Medical (4) Urinary incontinence: Code(s): R32 - Unspecified urinary incontinence Category: Medical Plan In office urinalysis results with the patient today; as noted above. PVR 0 mL. Patient currently denies any bothersome urinary issues or concerns. She reports be happy with current voiding parameters. She denies any UTI like symptoms. Continue methenamine, vitamin-C, Estrace cream and Myrbetriq as prescribed. Discussed UTI prevention with D mannose supplement, vitamin-C, increasing fluid intake, behavioral therapy with timed voiding, perineal hygiene and postcoital voiding, and management of constipation with stool softeners and increased fiber intake. Follow-up in 6 months with PVR; or sooner with any issues, concerns, and or questions. Orders: Orders AMB Post Void Residual by ultrasound Today R35.0 - Frequency of micturition AMB Urinalysis Automated Today Z13.9 - Encounter for screening, unspecified Medications: Changed From estradiol 0.01%(0.1mg/gram) vaginally daily; pea sized amount to urethra 30 days 42.5 grams 0RF To estradiol 0.01%(0.1mg/gram) pea sized amount to urethra three time per week 42.5 grams 2RF 90 days Refilled methenamine hippurate 1 g PO DAILY 90 tabs 1RF 90 days ascorbic acid (vitamin C) 1,000 mg PO DAILY 90 tabs 1RF 90 days Patient Instructions: The patient had an opportunity to ask questions regarding the treatment plan. All questions were answered. Physical exam, labs, and imaging were discussed and reviewed in detail. As well as risks, benefits, and discussion of treatment choices. No major barriers to understanding were identified. The patient expressed understanding and agreement with the above treatment plan. The patient was made aware they should contact our office by phone for worsening of their current condition, the appearance of new symptoms, or with any questions or concerns. Compliance is encouraged with any medications and follow up testing that is ordered. It is a privilege to be allowed the opportunity to participate in? your urological care.? Again, if you have any questions or concerns If you have any questions or concerns please do not hesitate to contact me. The office is [phone]. This note is constructed using voice recognition software. While every effort has been made to ensure accuracy handkerchief cutter errors may have been included. Yours sincerely, BECCA Garcia Coding Level of Care Code Est Pt Level 3 (69429) Complex EM visit Add On G2211 Diagnoses Cystitis N30.90 Urinary frequency R35.0 Recurrent urinary tract infection N39.0 Urinary incontinence R32 CPT Codes Post Residual Void - PVR CPT Code: 14298-[id number] Void Residual by ultrasound ([id number])
== END 2024-04-14 08:17 | disposition home or self-care (01) ==
PROVIDERS: PCP Internal Medicine; Visit Provider Nurse Practitioner Family
DX: N30.90 Cystitis, unspecified without hematuria (principal); R35.0 Frequency of micturition; N39.0 Urinary tract infection, site not specified; R32 Unspecified urinary incontinence; Z13.9 Encounter for screening, unspecified
CPT/HCPCS: 99213; G2211

== ENCOUNTER → 2024-04-14 07:31 | Outpatient (BNVA) | payer OTHER, SELFPAY | PROVIDERS: PCP Internal Medicine; Visit Provider Nurse Practitioner Family | DX: N30.90 Cystitis, unspecified without hematuria (principal); R32 Unspecified urinary incontinence; R35.0 Frequency of micturition | CPT/HCPCS: 51798; 81003; 99212 ==

== ENCOUNTER 2024-05-17 06:04 | Outpatient (REF) | payer OTHER, SELFPAY ==
[2024-05-17 06:24] LABS: MANUAL DIFF FLAG NO
[2024-05-17 07:47] LABS: Basophils Percent Auto 0.2 % (0-2); Eosinophils Absolute Auto 0.2 X10*3/uL (0.0-0.4); Hematocrit 36.1 % (37.0-47.0); Hemoglobin 11.2 g/dl (12.0-16.0); Imm Gran Abs Auto 0.01 X10*3/uL (0.00-0.03); Imm Gran Pct Auto 0.2 % (0.0-0.4); Lymphocytes Absolute Auto 1.2 X10*3/uL (1.2-4.9); Lymphocytes Percent Auto 23.8 % (20-40); Mean Corpuscular Hemoglobin 26.7 pg (27.0-33.0); Mean Corpuscular Volume 86.2 fL (80.0-98.0); Mean Platelet Volume 11.5 fL (9.4-12.3); Monocytes Absolute Auto 0.5 X10*3/uL (0.1-1.2); Monocytes Percent Auto 10.8 % (2-11); Neutrophils Absolute Auto 3.1 x10*3/uL (2.0-8.3); Platelet Count 171 X10*3/uL (160-400); Red Blood Count 4.19 X10*6/uL (4.20-5.50); Red Cell Distribution Width 14.4 % (11.0-16.0)
[2024-05-17 08:26] LABS: Erythrocyte Sedimentation Rate 26 MM/HR (0-20)
[2024-05-17 09:12] LABS: Alanine Aminotransferase 19 U/L (0-31); Albumin Level 3.9 g/dL (3.5-5.0); Alkaline Phosphatase 105 U/L (39-117); Anion Gap 10 (12-20); Aspartate Amino Transferase 22 U/L (5-31); Bilirubin Total 0.4 mg/dL (0.0-1.0); Blood Urea Nitrogen 13 mg/dL (9-16); C Reactive Protein 2.98 mg/dL (< or = 0.50); Calcium 8.5 mg/dL (8.4-10.2); Carbon Dioxide 28 mmol/L (22-29); Chloride 108 mmol/L (96-108); Cholesterol 160 mg/dL (<200); Estimated Glomerular Filt Rate > 60; Glucose Random 87 mg/dL (60-115); HDL Cholesterol 44 mg/dL (>40); LDL Cholesterol Calculated 96 mg/dL (<100); Potassium 4.4 mmol/L (3.3-5.1); Sodium 142 mmol/L (135-145); Total Protein 6.7 g/dL (6.5-8.0); Triglycerides 102 mg/dL (<150)
[2024-05-17 09:15] LABS: Thyroid Stimulating Hormone 1.62 uIU/mL (0.32-4.0)
[2024-05-17 09:36] LABS: Rheumatoid Factor 14.2 IU/mL (<15.0)
[2024-05-21 11:33] LABS: Cyclic Citrullinated Peptide <16 UNITS
== END 2024-05-17 06:05 | disposition home or self-care (01) ==
LOC: HO.LAB 06:04
PROVIDERS: PCP Internal Medicine; Visit Provider Internal Medicine
DX: G90.513 Complex regional pain syndrome I of upper limb, bilateral (principal); H35.3220 Exudative age-related macular degeneration, left eye, stage unspecified; I10 Essential (primary) hypertension; K58.9 Irritable bowel syndrome, unspecified; M79.7 Fibromyalgia; N32.81 Overactive bladder
CPT/HCPCS: 36415; 80053; 80061; 84443; 85025; 85652; 86140; 86200; 86431

== ENCOUNTER 2024-05-20 06:02 | Outpatient (REF) | payer OTHER, SELFPAY ==
--- OUTSIDE RECORDS SUMMARY | 2024-05-20 06:06 | XMS_ITS | Patient Health Record ---
[facility] [place] Address [address] [place] [address] Care Team Providers Care Lathe Machinist Name Role Phone Po, Dwight Primary Care Provider Unavailabl e Black, Shellie Unavailable [phone] Allergies Allergen (clinical drug ingredient) Drug/Non Drug Allergy documented on EMR Reaction Allergy Type Onset Date Status sulfamethoxazole / trimethoprim Bactrim Unknown Drug Allergy Active hydrochlorothiazide Hydrochlorothiazide Unknown Drug Aller gy Active ferrous sulfate Iron Unknown Drug Allergy A ctive Lactose Unknown Drug Allergy Active lisinopril Lisinopril Unknown Drug Allergy Activ e sertraline Sertraline HCl Unknown Drug Allergy A ctive shrimp allergenic extract Shrimp (Diagnostic) Unknown Drug Allergy Active Shellfish (FN) Shellfish-derived Products Unknown Drug Allergy Active Reason For Referral No Information Medications Medication SIG (Take, Route, Frequency, Duration) Notes Start Date End Date Status Voltaren 1 % Transdermal Not-T aking Vitamin A Not-Taking Extra Depth Orthopedic Shoes (1 Pair) with Customized Heat Molded Multidensity Innersoles (3 Pair) as directed Dx: NIDDM/Polyneuropathy (E11.42), Hammertoe Foot Deformity (M20.41,M20.42), Preulcerative Skin Lesion(s) (L85.1 06/05/2023 Active Lyrica 50 MG Orally Twice a day Not-Taking Famotidine Not-Takin g Folic Acid Not-Takin g Methotrexate Sodium 2.5 MG as directed Orally Not-Takin g Vitamin C 1000 MG 1 tablet Orally Once a day Active Advair Diskus 250-50 MCG/DOSE 1 puff Inhalation Twice a day Not-Taking Vitamin D Active Incruse Ellipta 62.5 MCG/INH 1 puff Inhalation Once a day Not-Taking traZODone HCl Active Metoprolol Succinate ER 50 MG 1 tablet Orally Once a day Not-Taking tiZANidine HCl 4 MG 1 tablet as needed Orally Three times a day Active Methotrexate Not-Dexter ing Gabapentin Not-Takin g Methenamine Hippurate 1 GM 1 tablet Orally Twice a day Active Folic Acid Not-Takin g Myrbetriq Active Omeprazole 40 MG 1 capsule Orally Onc e a day Active Dicyclomine HCl 10 MG 2 capsules Orally Three times a day for 30 day(s) Active Losartan Potassium 50 MG Orally Not-Taking EpiPen Active Albuterol Sulfate 108 (90 Base) MCG/ACT 2 puffs as needed Inhalation every 6 hrs Not-Takin g Estradiol Active Atropine Sulfate 1 tab Oral No t-Taking Lyrica 75 MG 1 capsule Orally Onc e a day Active Lamisil Not-Taking Meloxicam 15 MG 1 tablet Orally Once a day for 30 day(s) Not-Taking amLODIPine Besylate 5 MG 1 tablet Orally Once a day Active Atorvastatin Calcium 20 MG 1 tablet Orally Once a day Not-Taking Calcium Citrate + D3 Active Fluticasone-Salmeterol 250-50 MCG/DOSE 1 puff Inhalation Twice a day Not-Taking Cetirizine HCl Activ e amLODIPine Besylate 5 MG 1 tablet Orally Once a day Not-Taking Vitamin B 12 Not-Dexter ing traMADol HCl 50 MG 1 tablet as needed Orally every 6 hrs Not-Taking Immunizations Vaccine Route Administration Date Status Comme nts COVID-19 Waygo Vaccine Unknown 04/09/2021 Administered 1st 07/25/2020 2nd 08/15/2020 Influenza Unknown 01/28/2017 Administered Influenza Unknown 03/19/2018 Administered Influenza Unknown 01/26/2019 Administered Influenza Unknown 01/25/2020 Administered Influenza Unknown 01/24/2021 Administered Influenza Unknown 01/23/2023 Administered Social History Tobacco Use: Social History Observation Description Date Details (start date - stop date) Never Smoker NA - NA Tobacco Use/Smoking Question Answer Notes Are you a: nonsmoker Additional Findings: Tobacco Non-User Current no n-smoker Alcohol Screen Question Answer Notes Did you have a drink containing alcohol in the p ast year? No Points 0 Interpretation Negative Tobacco use other than smoking: Question Answer Notes Are you an other tobacco user? No Problems Problem Type SNOMED Code ICD Code Onset Dates Problem Status W/U Status Risk Notes Problem Acquired hammer toe of right foot (0090731073087438) Other hammer toe(s) (acquired), right foot (M20.41) Active confirmed Problem Acquired hammer toe of left foot (9734955132415695) Other hammer toe(s) (acquired), left foot (M20.42) Active confirmed Problem Ulcer of toe (529771180) Non-pressure chronic ulcer of other part of right foot limited to breakdown of skin (L97.511) Active confirmed Problem Acquired hammer toe of right foot (1818331574388827) Other hammer toe(s) (acquired), right foot (M20.41) Active confirmed Problem Acquired hammer toe of left foot (8168222785092042) Other hammer toe(s) (acquired), left foot (M20.42) Active confirmed Problem Polyneuropathy due to type 2 diabetes mellitus (136980707) Type 2 diabetes mellitus with diabetic polyneuropathy (E11.42) Active confirmed Problem 0082075 Arthritis (M19.90) Active confirmed Problem 606187764487417 Complex regional pain syndrome type 1 of both lower extremities (G90.523) Active confirmed Problem 04055248 Venous insufficiency (I87.2) Active confirmed Problem 651433610 Rheumatoid arthritis with positive rheumatoid factor, involving unspecified site (M05.9) Active confirmed Problem Acquired deformity of right foot (56811549031218050 ) PlantarFlexion of metatarsal of right foot (M21.6X1) Active confirmed Problem Acquired deformity of left foot (72031140060282471 ) PlantarFlexion of metatarsal of left foot (M21.6X2) Active confirmed Vital Signs Height 5ft 1in in 03/19/2024 Weight 143 lbs 03/19/2024 BMI 27.02 kg/m2 03/19/2024 Procedures Procedure Date Ordered Date Performed Result Body Sit e 73077-YKQL SKIN LESIONS, 2 TO 4 06/05/2023 N/A Y4244-QDZXZBKM DYSTROPHIC NAILS ANY # 06/05/2023 N/A 84633-Udihtvxz Plate 08/07/2023 N/A 55190-Diwdxexc Plate Each Additional 08/07/2023 N/A 78771-BIPD SKIN LESIONS, 2 TO 4 08/07/2023 N/A P4660-QXGITPKS DYSTROPHIC NAILS ANY # 08/07/2023 N/A 84167-JLMJ SKIN LESIONS, 2 TO 4 11/13/2023 N/A F6619-CCVVJBOX DYSTROPHIC NAILS ANY # 11/13/2023 N/A 37571-WPBK SKIN LESIONS, OVER 4 03/19/2024 N/A C5105-PZPFPQKE DYSTROPHIC NAILS ANY # 03/19/2024 N/A Encounters Encounter Location Date Provider Diagnosis [address] [address] 06/05/2023 Shellie Black Type 2 diabetes mellitus with diabetic polyneuropathy E11.42 ; Other hammer toe(s) (acquired), right foot M20.41 ; Complex regional pain syndrome type 1 of both lower extremities G90.523 ; Other hammer toe(s) (acquired), left foot M20.42 and Rheumatoid arthritis with positive rheumatoid factor, involving unspecified site M05.[address] [address] 08/07/2023 Shellie Black Type 2 diabetes mellitus with diabetic polyneuropathy E11.42 ; Other hammer toe(s) (acquired), right foot M20.41 ; Complex regional pain syndrome type 1 of both lower extremities G90.523 ; Other hammer toe(s) (acquired), left foot M20.42 ; Rheumatoid arthritis with positive rheumatoid factor, involving unspecified site M05.9 and Ingrown nail L60.[address] [address] 11/13/2023 Shellie Black Type 2 diabetes mellitus with diabetic polyneuropathy E11.[address] [address] 03/19/2024 Shellie Black Type 2 diabetes mellitus with diabetic polyneuropathy E11.42 Assessments Encounter Date Diagnosis (ICD Code) Assessment Notes Treatment Notes Treatment Clinical Notes Section Notes 06/05/2023 Other hammer toe(s) (acquired), right foot (ICD-10 - M20.41) Patient Educated with: DIABETIC FOOT CARE INSTRUCTIONS. pdf (DIABETIC FOOT CARE INSTRUCTIONS. pdf) 06/05/2023 Type 2 diabetes mellitus with diabetic polyneuropathy (ICD-10 - E11.42) 08/07/2023 Other hammer toe(s) (acquired), right foot (ICD-10 - M20.41) 08/07/2023 Type 2 diabetes mellitus with diabetic polyneuropathy (ICD-10 - E11.42) 11/13/2023 Type 2 diabetes mellitus with diabetic polyneuropathy (ICD-10 - E11.42) 03/19/2024 Type 2 diabetes mellitus with diabetic polyneuropathy (ICD-10 - E11.42) 08/07/2023 Complex regional pain syndrome type 1 of both lower extremities (ICD-10 - G90.523) 06/05/2023 Complex regional pain syndrome type 1 of both lower extremities (ICD-10 - G90.523) 06/05/2023 Other hammer toe(s) (acquired), left foot (ICD-10 - M20.42) 08/07/2023 Other hammer toe(s) (acquired), left foot (ICD-10 - M20.42) 08/07/2023 Rheumatoid arthritis with positive rheumatoid factor, involving unspecified site (ICD-10 - M05.9) 06/05/2023 Rheumatoid arthritis with positive rheumatoid factor, involving unspecified site (ICD-10 - M05.9) 08/07/2023 Ingrown nail (ICD-10 - L60.0) Plan Of Treatment Pending Test Test Name Order Date 99188-NLNYALK NAIL, -09/15/2017 32603-BAMJTXU NAIL, 05-3003/19/2018 05097-HLJDLOW NAIL, 05-3001/08/2018 82306-YTIJJFS NAIL, 05-3009/10/2018 95002-UJQYTHA NAIL, 05-3012/14/2018 06961-ATKIWMH NAIL, 05-3003/25/2019 50041-NVYBRVW NAIL, 05-3006/24/2019 94188-TMMLZVC NAIL, 05-3011/11/2019 83459-RTGGKOH NAIL, 05-3001/20/2020 93244-NZJOUSU NAIL, 05-3003/30/2020 44671-CXBMYRV NAIL, 05-3007/13/2020 14284-XNMPKCA NAIL, 05-3009/14/2020 84052-QGKSJKW NAIL, 1-5 01/25/2021 18679-Uycgfrjf Plate 11/16/2020 70465-Cmcndtxr Plate 09/14/2020 08466-Elfduigh Plate 03/30/2020 76523-Pkwfiigu Plate 04/30/2021 60016-Qczzhekl Plate 07/12/2021 22163-Nmzuxzvg Plate 09/24/2021 93345-Pgfjbcic Plate 01/20/2020 41920-Zdoznnda Plate 11/11/2019 13501-Bmchxwfq Plate 08/01/2022 35952-Bqfpecvg Plate 08/07/2023 25393-Jmtmayrx Plate Each Additional 09053-Qmbjhrwz Plate Each Additional 63601-Tqeqzswc Plate Each Additional 09/2019 36331-Hqhibfzu Plate Each Additional 48533-Tmwjfrzy Plate Each Additional 02689- Debride <25 sq cm 10/18/2021 92708- Debride <25 sq cm 09/24/2021 09139 I&D ABSCESS- SIMPLE,SINGLE 021 53085 I&D ABSCESS- SIMPLE,SINGLE 022 18942 I&D ABSCESS- SIMPLE,SINGLE 018 35959-NMGA SKIN LESIONS, OVER 4 03/19/20 68785-FIAI SKIN LESIONS, 2 TO 4 11/13/19 24 30017-ATTO SKIN LESIONS, 2 TO 4 08/02/19 73414-RMCH SKIN LESIONS, 2 TO 4 08/07/19 98391-GJAQ SKIN LESIONS, 2 TO 4 12/13/19 33409-PUIH SKIN LESIONS, 2 TO 4 02/25/20 23 71117-OIOM SKIN LESIONS, 2 TO 4 06/05/19 24 85292-PBTY SKIN LESIONS, 2 TO 4 09/11/19 19 41492-QYAR SKIN LESIONS, 2 TO 4 01/09/20 18 69223-SYVH SKIN LESIONS, 2 TO 4 09/16/19 18 80251-KKQY SKIN LESIONS, 2 TO 4 03/25/20 19 13782-BWJL SKIN LESIONS, 2 TO 4 12/15/19 43307-OWQR SKIN LESIONS, 2 TO 4 03/19/20 83177-YTKO SKIN LESIONS, 2 TO 4 01/20/20 79885-ANKM SKIN LESIONS, 2 TO 4 03/30/20 87597-GSXD SKIN LESIONS, 2 TO 4 11/11/19 20 24366-EFNO SKIN LESIONS, 2 TO 4 06/24/19 73664-KDJF SKIN LESIONS, 2 TO 4 12/18/19 91210-DUPU SKIN LESIONS, 2 TO 4 02/29/20 91678-JDRB SKIN LESIONS, 2 TO 4 07/12/19 27647-CJAO SKIN LESIONS, 2 TO 4 09/25/19 28978-MHOF SKIN LESIONS, 2 TO 4 04/30/20 21 20948-VQGY SKIN LESIONS, 2 TO 4 01/26/20 42462-AYJH SKIN LESIONS, 2 TO 4 07/13/19 21 03417-PYNM SKIN LESIONS, 2 TO 4 09/15/19 43613-ILUW SKIN LESIONS, 2 TO 4 11/17/19 21 30149-Uxfv. Subungual Hematoma 2 26914-Kgnx. Subungual Hematoma 9 H2577-RCWSRWDI DYSTROPHIC NAILS ANY # U3774-NAXMBGYR DYSTROPHIC NAILS ANY # D8738-AYIOAWVH DYSTROPHIC NAILS ANY # R2219-EEAZUEBG DYSTROPHIC NAILS ANY # B1611-WMINCABX DYSTROPHIC NAILS ANY # J3223-DULFCWXB DYSTROPHIC NAILS ANY # O2441-MVOJHVDE DYSTROPHIC NAILS ANY # T3419-VQZVNAXJ DYSTROPHIC NAILS ANY # B9003-MMIRFFHR DYSTROPHIC NAILS ANY # V4340-SAOBXMSF DYSTROPHIC NAILS ANY # Q4749-VZBJCSHD DYSTROPHIC NAILS ANY # C1757-JZGOWYAO DYSTROPHIC NAILS ANY # N1490-ONZSQCVU DYSTROPHIC NAILS ANY # O1803-UAHDFIPB DYSTROPHIC NAILS ANY # X8183-RWNMFFLV DYSTROPHIC NAILS ANY # S1199-YMFZOLXH DYSTROPHIC NAILS ANY # R8261-NDTNUPVU DYSTROPHIC NAILS ANY # L6391-KKQFOESM DYSTROPHIC NAILS ANY # J1552-CUIGYPXJ DYSTROPHIC NAILS ANY # D9909-LUNGUSXY DYSTROPHIC NAILS ANY # A9812-KBDUCKEL DYSTROPHIC NAILS ANY # G3956-JERKFBZL DYSTROPHIC NAILS ANY # B9165-JDPQPSBD DYSTROPHIC NAILS ANY # A8175-YPJGBGCA DYSTROPHIC NAILS ANY # S9597-SQVPKOUB DYSTROPHIC NAILS ANY # W1738-ATJPJFNN DYSTROPHIC NAILS ANY # Next Appt Details Provider Name:Shellie Drummond , 05/27/2024 08:30:00 AM, [address] [place] [address], [phone], Provider Name:Shellie Drummond , 08/05/2024 08:15:00 AM, [address] [place] [address], [phone], Insurance Providers Payer Name Payer Address Payer Phone Subscriber Number Group Number Insured Name Patient Relationship to Insured Coverage Start Date Coverage End Date [facility] [employer] Claims [address] [facility] [address] [place] [id number] Radha hoang María Self - patient is the insured Medical (General) History Medical History History ICD Code Anemia Arthritis asthma Back,Hip,and Knee pain Broken bones CAD (Cholesterol) Cataracts Diabetic, borderline Fibromyalgia Gall bladder problems Headaches Hiatal hernia High blood pressure Macular degeneration RSD Numbness Poor circulation Reflux ( GERD) Sciatica Stomach ulcer Measles Mumps Chicken pox Diet controlled Diabetic rheumatoid arthritis Scoliosis Surgical History Surgery Date(Month/Year) gall bladder 1994 lumpectomy 1979 umbilical hernia repair 2016 deviated septum repair 1974 hemorroid & fissure 1967 gastric bypass 02/10/19 Prolaps- moved bladder up 06/27/2020 cystocele repair 08/07/2021 rectocele repair 08/07/2021 biopsy, bladder 04/29/2023 Hospitalization History Reason Date(Month/Year) [facility]-Stomach pain ? IBS 1 night stay 10/12 20 [facility]- Obstruction 10/12 [facility]- Gastric Bypass Sx 02/10/19
--- OUTSIDE RECORDS SUMMARY | 2024-05-20 06:06 | XMS_ITS ---
Author Organization [facility] Address [address] [place] [address] Care Team Providers Care Political Worker Name Role Phone Po Dwight CRAIG Primary Care Provider Jordan Quiñones Unavailable [phone] REASON FOR VISIT dysphagia, can't swallow rice Encounters Encounter Location Date Provider Diagnosis [facility] [address] [place] [phone] 03/01/2024 Jordan Sanchez PLAN OF TREATMENT Next Appt Details Provider Name:Jordan Sanchez , 07/05/2024 07:30:00 AM, [address] [place] [address] , [place], [place], [phone],
--- OUTSIDE RECORDS SUMMARY | 2024-05-20 06:06 | XMS_ITS ---
Author Organization [facility] Address [address] [place] [address] Care Team Providers Care Culturist Name Role Phone Po Dwight CRAIG Primary Care Provider Jordan Quiñones Unavailable [phone] REASON FOR VISIT chocking on food PROBLEMS Problem Type ICD Code Onset Dates Problem Status W/U Status Risk SNOMED Code Notes Problem Benign esophageal stricture (K22.2) Active confirmed Benign esophageal stricture (502526634) Encounters Encounter Location Date Provider Diagnosis [facility] [address] [place] [address] 02/26/2024 Jordan Sanchez Dysphagia R13.10 and Benign esophageal stricture K22.2 ASSESSMENTS Encounter Date Diagnosis Assessment Notes Treatment Notes Treatment Clinical Notes 02/26/2024 Dysphagia (ICD-10 - R13.10) 02/26/2024 Benign esophageal stricture (ICD-10 - K22.2) PLAN OF TREATMENT Future Test Test Name Order Date UPPER GI ENDOSCOPY BALLOOON DILATION OF ESOPH 02/27/2024 Next Appt Details Provider Name:Jordan Sanchez , 07/05/2024 07:30:00 AM, [address] [place] [address] , [place], [place], [phone],
--- OUTSIDE RECORDS SUMMARY | 2024-05-20 06:06 | XMS_ITS ---
Author Organization [facility] Address [address] [place] [address] Care Team Providers Care Special Officer Automat Name Role Phone Dwight Nicole Primary Care Provider UnavailShellie Childs Unavailable [phone] REASON FOR VISIT too soon Encounters Encounter Location Date Provider Diagnosis [address] [address] 04/26/2024 Shellie Drummond Plan Of Treatment Next Appt Details Provider Name:Shellie A Bhanu , 05/27/2024 08:30:00 AM, [address] [place] [address], [phone], Provider Name:Shellie Lawrence Bhanu , 08/05/2024 08:15:00 AM, [address] [place] [address], [phone], Progress Notes * María SAWYER LDOB:[birth year] (73 yo F)Acc No.[id number]:04/26/2024 Progress Note Patient:?María SAWYER Provider:Bartolo Drummond DPM :1950???Age:73 Y???Sex:Female D ate:04/26/2024 Address:[address] [place] [address] [address], [phone] Pcp:Dwight Nicole Subjective: * Chief Complaints: * ???1. Too soon. * Medical History:? Objective: * Vitals:? Assessment: Plan: * Treatment: * Images: * The named appointment provid er may or may not be the originator of this progress note, and it is not deemed complete until electronically signed by the appointment provider. Sign off status: Pending * Provider:Bartolo Drummond DPM Date:?2023 Generated for Joanie ny/Florentino/Rowan on:?05/20/2024 06:05 AM EST
--- OUTSIDE RECORDS SUMMARY | 2024-05-20 06:06 | XMS_ITS ---
Author Organization [facility] Address [address] [place] [address] Care Team Providers Care Cream Separator Operator Name Role Phone Dwight Nicole Primary Care Provider UnavailShellie Childs Unavailable [phone] Del Cid Encounters Encounter Location Date Provider Diagnosis [address] [address] 02/23/2024 Shellie Drummond Plan Of Treatment Next Appt Details Provider Name:Shellie A Bhanu , 05/27/2024 08:30:00 AM, [address] [place] [address], [phone], Provider Name:Shellie Lawrence Bhanu , 08/05/2024 08:15:00 AM, [address] [place] [address], [phone], Progress Notes * TWANMaría MERCER LDOB:[birth year] (73 yo F)Acc No.[id number]:02/23/2024 Progress Note Patient:?María SAWYER Provider:Bartolo Drummond DPM :1950???Age:73 Y???Sex:Female D ate:02/23/2024 Address:[address] [place] [address] [address], [id number] Pcp:Dwight Nicole Subjective: * Chief Complaints: * ???1. Dr Del Cid. * Medical History:? Objective: * Vitals:? Assessment: Plan: * Treatment: * Images: * The named appointment provid er may or may not be the originator of this progress note, and it is not deemed complete until electronically signed by the appointment provider. Sign off status: Pending * Provider:?Shellie Drummond DPM Date:?2023 Generated for Joanie ny/Florentino/Rowan on:?05/20/2024 06:06 AM EST
--- OUTSIDE RECORDS SUMMARY | 2024-05-20 06:06 | XMS_ITS ---
Author Organization [facility] [place] Address [address] [place] [address] Care Team Providers Care Helicopter Officer Name Role Phone Po, Dwight Primary Care Provider Unavailabl e Black, Shellie Unavailable [phone] Allergies Allergen (clinical drug ingredient) Drug/Non Drug [...] (FN) Shellfish-derived Products Unknown Drug Allergy Active REASON FOR VISIT At Risk Footcare Medications Medication SIG (Take, Route, Frequency, Duration) Notes Start Date End Date Status Lyrica 50 MG Orally Twice a day Not-Taking Advair Diskus 250-50 MCG/DOSE 1 puff Inhalation Twice a day Not-Taking Incruse Ellipta 62.5 MCG/INH 1 puff Inhalation Once a day Not-Taking Metoprolol Succinate ER 50 MG 1 tablet Orally Once a day Not-Taking Methotrexate Not-Dexter ing Vitamin B 12 Not-Dexter ing traMADol HCl 50 MG 1 tablet as needed Orally every 6 hrs Not-Taking Folic Acid Not-Takin g Atropine Sulfate 1 tab Oral No t-Taking Lamisil Not-Taking Losartan Potassium 50 MG Orally Not-Taking Albuterol Sulfate 108 (90 Base) MCG/ACT 2 puffs as needed Inhalation every 6 hrs Not-Takin g Atorvastatin Calcium 20 MG 1 tablet Orally Once a day Not-Taking Fluticasone-Salmeterol 250-50 MCG/DOSE 1 puff Inhalation Twice a day Not-Taking amLODIPine Besylate 5 MG 1 tablet Orally Once a day Not-Taking Gabapentin Not-Takin g Voltaren 1 % Transdermal Not-T aking Vitamin A Not-Taking Methotrexate Sodium 2.5 MG as directed Orally Not-Takin g Meloxicam 15 MG 1 tablet Orally Once a day for 30 day(s) Not-Taking Extra Depth Orthopedic Shoes (1 Pair) with Customized Heat Molded Multidensity Innersoles (3 Pair) as directed Dx: NIDDM/Polyneuropathy (E11.42), Hammertoe Foot Deformity (M20.41,M20.42), Preulcerative Skin Lesion(s) (L85.1 06/05/2023 Active Famotidine Not-Takin g Folic Acid Not-Takin g traZODone HCl Active tiZANidine HCl 4 MG 1 tablet as needed Orally Three times a day Active Methenamine Hippurate 1 GM 1 tablet Orally Twice a day Active Myrbetriq Active Omeprazole 40 MG 1 capsule Orally Onc e a day Active Vitamin C 1000 MG 1 tablet Orally Once a day Active Vitamin D Active Dicyclomine HCl 10 MG 2 capsules Orally Three times a day for 30 day(s) Active EpiPen Active Estradiol Active Lyrica 75 MG 1 capsule Orally Onc e a day Active Cetirizine HCl Activ e amLODIPine Besylate 5 MG 1 tablet Orally Once a day Active Calcium Citrate + D3 Active Social History Tobacco Use: Social History Observation [...] Are you an other tobacco user? No Vital Signs Height 5ft 1in in 03/19/2024 Weight 143 lbs 03/19/2024 BMI 27.02 kg/m2 03/19/2024 Procedures Procedure Date Ordered Date Performed Result Body Sit e 49143-NWAU SKIN LESIONS, OVER 4 03/19/2024 N/A [id number] DYSTROPHIC NAILS ANY # 03/19/2024 N/A Encounters Encounter Location Date Provider Diagnosis [facility] [address] [address] 03/19/2024 Shellie Drummond Type 2 diabetes je itus with diabetic polyneuropathy E11.42 Assessments Encounter Date Diagnosis (ICD Code) Assessment Notes Treatment Notes Treatment Clinical Notes Section Notes 03/19/2024 Type 2 diabetes mellitus with diabetic polyneuropathy (ICD-10 - E11.42) Plan Of Treatment Pending Test Test Name Order Date 84730-RAMN SKIN LESIONS, OVER 4 03/19/20 24 [id number] DYSTROPHIC NAILS ANY # Next Appt Details Follow Up: prn, Reason: Provider Name:Shellie Drummond , 05/27/2024 08:30:00 AM, [address] [place] [address], [phone], Provider Name:Shellie Drummond , 08/05/2024 08:15:00 AM, [address] [place] [address], [phone], Procedure Notes * Category Sub-Category Detail Notes Keratoma Treatment Parring or Cutting o f Benign Hyperkeratotic Lesion(s) (-57) More than 4 Lesions - The Benign hyperkeratotic lesions, as described above were pared, and/or cut utilizing a sterile 15 blade, tissue nippers, and/or dremel - 96331 Nail Reduction Nail Reduction Trimming of dyst rophic nails performed to reduce/remove overall nail length and girth, by manual and electrical means with use of a nail nipper and/or dremel, to more viable healthy nail plate or bed tissue 6-10 (G0127) Progress Notes * María SAWYER LDOB:[birth year] (73 yo F)Acc No.[id number]:03/19/2024 Progress Note Patient:?María Sawyer Nelda Provider:?Shellie Drummond DPM :1950???Age:73 Y???Sex:Female D ate:03/19/2024 Address:[address] [place] [address], [place] [id number] Pcp:Dwight Nicole Subjective: * Chief Complaints: * ???At Risk Footcare * HPI: ???At Risk footcare:?Pt States Last PCP Visit:?Date?10/08/2023 * Medical History:? * Surgical History:?fredo romeo er 1995lumpectomy 1980umbilical hernia repair 2017deviated septum repair 1974hemorroid & fissure 1967gastric bypass 02/10/19Prolaps- moved bladder up 1cystocele repair 2rectocele repair 2biopsy, bladder 04/29/2023 * Hospitalization/Major Diagno stic Procedure:?[facility]- Gastric Bypass Sx 02/10/19[facility]- Obstruction 10/12[facility]-Stomach pain ? [facility]BS 1 night stay 09/2020 * Family History:?Mother: dece ased.?Father: .? Pt states Family Hx unknown because she was adopted. * Social History:?Tobacco Use:?Tobacco Use/Smoking?Are you a:?nonsmoker ?Additional Findings: Tobacco Non-User?Current non-smoker ?Tobacco use other than smoking?Are you an other tobacco user??No ???Drugs/Alcohol:?Drugs?Have you used drugs other than those for medical reasons in the past 12 months??No ?Alcohol Screen?Did you have a drink containing alcohol in the past year??No ?Points?0 ?Interpretation?Negative ???Miscellaneous:?Caffeine: yes, frequency:, 1-2 cups per day decaff tea. ?Children: yes, 2. ?no Exercise. ?Marital status: single. 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 * Medications:?TakingamLODIPin e Besylate 5 MG Tablet 1 tablet Orally Once a dayCalcium Citrate + D3 Cetirizine HCl Dicyclomine HCl 10 MG Capsule 2 capsules Orally Three times a dayEpiPen Estradiol Lyrica 75 MG Capsule 1 capsule Orally Once a dayMethenamine Hippurate 1 GM Tablet 1 tablet Orally Twice a dayMyrbetriq Omeprazole 40 MG Capsule Delayed Release 1 capsule Orally Once a dayVitamin C 1000 MG Tablet 1 tablet Orally Once a dayVitamin D traZODone HCl tiZANidine HCl 4 MG Tablet 1 tablet as needed Orally Three times a dayExtra Depth Orthopedic Shoes (1 Pair) with Customized Heat Molded Multidensity Innersoles (3 Pair) as directed Dx: NIDDM/Polyneuropathy (E11.42), Hammertoe Foot Deformity (M20.41,M20.42), Preulcerative Skin Lesion(s) (L85.1Taking amLODIPine Besylate 5 MG Tablet 1 tablet Orally Once a dayTaking Calcium Citrate + D3 Taking Cetirizine HCl Taking Dicyclomine HCl 10 MG Capsule 2 capsules Orally Three times a dayTaking EpiPen Taking Estradiol Taking Lyrica 75 MG Capsule 1 capsule Orally Once a dayTaking Methenamine Hippurate 1 GM Tablet 1 tablet Orally Twice a dayTaking Myrbetriq Taking Omeprazole 40 MG Capsule Delayed Release 1 capsule Orally Once a dayTaking Vitamin C 1000 MG Tablet 1 tablet Orally Once a dayTaking Vitamin D Taking traZODone HCl Taking tiZANidine HCl 4 MG Tablet 1 tablet as needed Orally Three times a dayTaking Extra Depth Orthopedic Shoes (1 Pair) with Customized Heat Molded Multidensity Innersoles (3 Pair) as directed Dx: NIDDM/Polyneuropathy (E11.42), Hammertoe Foot Deformity (M20.41,M20.42), Preulcerative Skin Lesion(s) (L85.1Not-Taking/PRNFamotidine Folic Acid Methotrexate Sodium 2.5 MG Tablet as directed Orally Voltaren 1 % Gel Transdermal Vitamin A Gabapentin Meloxicam 15 MG Tablet 1 tablet Orally Once a dayAtorvastatin Calcium 20 MG Tablet 1 tablet Orally Once a dayFluticasone-Salmeterol 250-50 MCG/DOSE Aerosol Powder Breath Activated 1 puff Inhalation Twice a dayamLODIPine Besylate 5 MG Tablet 1 tablet Orally Once a dayLosartan Potassium 50 MG Tablet Orally Albuterol Sulfate 108 (90 Base) MCG/ACT Aerosol Powder Breath Activated 2 puffs as needed Inhalation every 6 hrsAtropine Sulfate 1 tab Oral Lamisil Folic Acid Vitamin B 12 traMADol HCl 50 MG Tablet 1 tablet as needed Orally every 6 hrsAdvair Diskus 250-50 MCG/DOSE Aerosol Powder Breath Activated 1 puff Inhalation Twice a dayIncruse Ellipta 62.5 MCG/INH Aerosol Powder Breath Activated 1 puff Inhalation Once a dayMetoprolol Succinate ER 50 MG Tablet Extended Release 24 Hour 1 tablet Orally Once a dayMethotrexate Lyrica 50 MG Capsule Orally Twice a dayMedication List reviewed and reconciled with the patientNot-Taking/PRN Famotidine Not-Taking/PRN Folic Acid Not-Taking/PRN Methotrexate Sodium 2.5 MG Tablet as directed Orally Not- Taking/PRN Voltaren 1 % Gel Transdermal Not-Taking/PRN Vitamin A Not-Taking/PRN Gabapentin Not-Taking/PRN Meloxicam 15 MG Tablet 1 tablet Orally Once a dayNot-Taking/PRN Atorvastatin Calcium 20 MG Tablet 1 tablet Orally Once a dayNot-Taking/PRN Fluticasone-Salmeterol 250-50 MCG/DOSE Aerosol Powder Breath Activated 1 puff Inhalation Twice a dayNot-Taking/PRN amLODIPine Besylate 5 MG Tablet 1 tablet Orally Once a dayNot-Taking/PRN Losartan Potassium 50 MG Tablet Orally Not-Taking/PRN Albuterol Sulfate 108 (90 Base) MCG/ACT Aerosol Powder Breath Activated 2 puffs as needed Inhalation every 6 hrsNot-Taking/PRN Atropine Sulfate 1 tab Oral Not-Taking/PRN Lamisil Not-Taking/PRN Folic Acid Not-Taking/PRN Vitamin B 12 Not-Taking/PRN traMADol HCl 50 MG Tablet 1 tablet as needed Orally every 6 hrsNot-Taking/PRN Advair Diskus 250-50 MCG/DOSE Aerosol Powder Breath Activated 1 puff Inhalation Twice a dayNot-Taking/PRN Incruse Ellipta 62.5 MCG/INH Aerosol Powder Breath Activated 1 puff Inhalation Once a dayNot-Taking/PRN Metoprolol Succinate ER 50 MG Tablet Extended Release 24 Hour 1 tablet Orally Once a dayNot-Taking/PRN Methotrexate Not-Taking/PRN Lyrica 50 MG Capsule Orally Twice a dayMedication List reviewed and reconciled with the patient * Allergies:?Hydrochlorothiazi deIronLactoseLisinoprilSertraline HClBactrimShellfish-derived ProductsShrimp (Diagnostic)yes[Allergies Verified] Objective: * Vitals:?Ht:5ft 1in, Wt:143, BMI:27.02, Shoe size:9-9.5, BS:Didn't test, Ht-cm: 154.94 cm, Wt-k.86 kg. * Examination: ???Ophthalmology Referral: ?DIABETES EYE EXAM?Dermatologic: ?SKIN FINDINGS:?, Skin exam reveals Keratotic lesion(s) located at, IPJ, TA, T5, Heel(s), B/L, SUB MTH (s), 2, B/L .?Neurological: ?SENSORY:?Neurological exam demonstrates, reduced light touch sensation, reduced sharp/dull discrimination , reduced vibration sensation, reduced proprioception sensation, 5.07 monofilament test performed at plantar aspects of 5 varied sites per foot shows sensation, absent, , at Forefoot, B/L, Pt relates, increased?anesthesia,? forefoot B/L.?Nails: ?NAILS are:?Elongated, overgrown, dystrophic, T1 T2, T3, T6, T7, T9, .?Vascular: ?DP PULSES(B):? 2/4, B/L.?PT PULSES(B):? 2/4, B/L.?General Examination: ?FOOT EXAM:? Assessment: * Assessment: 1.?Type 2 diabetes mellitus with diabetic polyneuropathy - E11.42? Plan: * Treatment: * Procedures:?Keratoma Treatment:?Parring or Cutting of Benign Hyperkeratotic Lesion(s)?(-57) More than 4 Lesions - The Benign hyperkeratotic lesions, as described above were pared, and/or cut utilizing a sterile 15 blade, tissue nippers, and/or dremel - 53652.?Nail Reduction:?Nail Reduction?Trimming of dystrophic nails performed to reduce/remove overall nail length and girth, by manual and electrical means with use of a nail nipper and/or dremel, to more viable healthy nail plate or bed tissue 6-10 (G0127).? * Procedure Codes:?G0127 RONDA ING DYSTROPHIC NAILS ANY #, Modifiers: XS 21830 TRIM SKIN LESIONS, OVER 4, Modifiers: XS * Preventive Medicine:?85830. * Follow Up:?prn * Images: * Sign off status: Completed true * Provider:?Shellie Drummond DPM Date:?2023 Generated for Joanie ny/Florentino/Sudeepitting on:?05/20/2024 06:06 AM EST History and Physical Notes * HPI (History of Present Illness) Category Sub-Category Detail Notes Category Not es At Risk footcare Pt States Last PCP Visit: Date: 4 Examination Category Sub-Category Detail Notes Category Not es Neurological SENSORY: Neurological exa m demonstrates, reduced light touch sensation, reduced sharp/dull discrimination , reduced vibration sensation, reduced proprioception sensation, 5.07 monofilament test performed at plantar aspects of 5 varied sites per foot shows sensation, absent, , at Forefoot, B/L, Pt relates, increased anesthesia, forefoot B/L Dermatologic SKIN FINDINGS: , Skin exam reve als Keratotic lesion(s) located at, IPJ, TA, T5, Heel(s), B/L, SUB MTH (s), 2, B/L General Examination FOOT EXAM: Lower Extrem ity Neurological Exam performed:: No changes to the above exam findings since last visit Ophthalmology Referral DIABETES EYE EXAM Diabetic Retinopathy Screening:: Yes Findings of Diabetic Eye Exam:: no retin opathy Vascular DP PULSES (B): 2/4, B/L PT PULSES (B): 2/4, B/L Nails NAILS are: Elongated, overgrown, dystro phic, T1 T2, T3, T6, T7, T9,
--- OUTSIDE RECORDS SUMMARY | 2024-05-20 06:06 | XMS_ITS | Patient Health Record ---
Author Organization [facility] Address [address] [place] [address] Care Team Providers Care Refrigeration Service Inspector Name Role Phone Dwight Nicole MD Primary Care Provider Jordan Quiñones [phone] ALLERGIES Allergen (clinical drug ingredient) Drug/Non Drug Allergy documented on EMR Reaction Allergy Type Onset Date Status Lactose Unknown Drug Allergy Active ferrous sulfate Iron Unknown Drug Allergy A ctive hydrochlorothiazide Hydrochlorothiazide Unknown Drug Aller gy Active codeine Codeine Sulfate Unknown Drug Allergy A ctive vaginal creams (uncoded) Unknown Allergy Active Sulfa Unknown Drug Allergy Active sertraline Zoloft Unknown Drug Allergy Active sertraline Sertraline HCl Unknown Drug Allergy A ctive lisinopril Lisinopril Unknown Drug Allergy Activ e RESULTS Component Value Reference Range Notes FL barium swallow with air ( Not yet reviewed by provider) Interpretation: Performing Lab: Notes/Report: [address] [address] Fluoroscopy Report Signed Patient: María Sawyer MR#: [id number] : 1950 Acct:[id number] Age/Sex: 73 / F ADM Date: 01/14/24 Loc: HO.XRAY Attending Dr: Jordan Sanchez MD Ordering Physician: Jordan Sanchez MD Date of Service: 01/14/24 Procedure(s): FL barium swallow with air Accession Number(s): [id number] cc: Dwight Nicole MD; Jordan Sanchez MD EXAMINATION: XR FLUOROSCOPY UPPER GI WITH AIR CLINICAL INFORMATION: Dysphagia, history of endoscopic dilations. History of Clemente-en-Y gastric bypass COMPARISON: Upper GI 2020, 2019, 2016 TECHNIQUE: Fluoroscopic air contrast upper GI examination was performed utilizing standard techniques with thin and thick barium and effervescent granules. Numerous spot images were obtained. FINDINGS: Moderate to advanced degenerative spondylosis of the cervical spine spanning C4-C7 is noted with disc space narrowing and anterior disc osteophytes. Stairstep mild retrolistheses of C3 on C4, C4 and C5 present, degenerative. Mild reversal of the normal cervical lordosis. Lateral cine images of the oropharynx and hypopharynx demonstrate normal swallow mechanism with normal epiglottic inversion and soft palate elevation. No tracheal penetration, glottic or subglottic aspiration identified. No nasopharyngeal reflux present. There is narrowing of the cervical esophagus just below the hypopharynx due to an anterior cervical web (RF 1-3, image 34). There is mild cricopharyngeal achalasia. Dual and single contrast images of the esophagus demonstrate mildly tortuous course, but normal caliber, contour, and mucosal pattern. No evidence of stricture, mass, or ulcerations identified. There is to and fro motion of the barium column with nonpropulsive tertiary contractions noted throughout the esophagus. There is a probable pulsion diverticulum just above the GE junction. The GE junction appears patent without significant narrowing. There is a small type I hiatal hernia present. No significant gastroesophageal reflux was seen during the course of the examination and on reflux views. Dual contrast and single contrast images of the stomach demonstrated post surgical changes consistent with prior history of Clemente-en-Y gastric bypass. The gastrojejunostomy is widely patent, without evidence of stricture. Evaluation of the gastric pouch mucosa is limited due to its position posterior to the jejunum. There are a few foci of contrast point suggesting shallow submucosal apthous ulcers. Contrast freely passed into the alimentary limb without delay. The imaged jejunum has a normal fold pattern and caliber. FLUOROSCOPY TIME: 3 minutes 35 seconds Number of Spot Images: 5 Number of Cine: 13 DOSE AREA PRODUCT: 1372 uGy-m2 (microgray-meter squared) FL/FL barium swallow with air IMPRESSION: 1. Significant narrowing of the cervical esophagus just below the upper esophageal sphincter due to anterior cervical web. 2. Mild cricopharyngeal achalasia. 3. Esophageal dysmotility and mild tortuosity. GE junction is mildly narrowed but patent. Pulsion diverticulum just above the GE junction. 4. Small type I hiatal hernia. 5. Post surgical changes consistent with prior history of Clemente-en-Y gastric bypass. Evaluation of the gastric pouch mucosa demonstrates foci of contrast pooling suggestive of submucosal apthous-type ulcers. The gastrojejunostomy is patent without evidence of stricture. This procedure was performed by Tyshawn Jones PA-C, and supervised by Dr. Tim Electronically signed by: Yaniv Tim MD 01/16/2024 12:26 PM EDT Dictated By: Tyshawn Jones Signed By: <Electronically signed by Tyshawn Joens in OV> 01/16/24 1226 <Electronically signed by Yaniv Tim MD in OV> 04/28/24 1154 DD/ 0800 TD/TT: 01/14/24 0810 Billet Straightener: Pathology (Not yet reviewed by provider) Interpretation: Performing Lab:[facility], [address] [place] [id number] Notes/Report: REASON FOR REFERRAL No Information MEDICATIONS Medication SIG (Take, Route, Frequency, Duration) Notes Start Date End Date Status Omeprazole 20 MG 1 Orally Once a day every morning for 30 day(s) 02/24/2024 Active traZODone HCl 50 MG 1 tablet at bedtime as needed Orally Once a day for 30 day(s) Active Famotidine 20 MG 1 tablet at bedtime as needed Orally Once a day for 30 day(s) Active Methenamine Hippurate 1 GM 1 tablet Oral ly Twice a day for 10 day(s) Active Tylenol 1 1 tablet Oral as directed Not-Taking Losartan Potassium 100 MG as directed Or ally once a day Active Omeprazole 40 MG 1 capsule Orally Onc e a day Not-Taking Myrbetriq 50 MG 1 tablet Orally Once a day Active Lyrica 50 MG 1 capsule Orally twi ce a day Active tiZANidine HCl 4 MG 1 tablet as needed Oral every 8 hours Active OneTouch Verio - In Vitro for 30 Active amLODIPine Besylate 5 MG take 1 tablet b y mouth once daily Orally Active Ipratropium Girard 0.02 % 2.5 mL as nee ded Inhalation every 8 hrs Active Turmeric 500 MG as directed Orally Active Fluticasone Propionate 50 MCG/ACT 1 spray in each nostril Nasally Once a day for 30 day(s) Active Cetirizine HCl 10 MG 1 tablet Orally Onc e a day for 30 day(s) Active Folic Acid 1 MG 1 tablet Orally Once a day for 30 day(s) Not-Taking Dicyclomine HCl 10 MG TAKE 1-2 CAPSULES BY MOUTH EVERY 6 HOURS NEEDED FOR ABDOMINAL CRAMPS, DISCOMFORT, BLOATING OR DIARRHEA for 12 Active Methotrexate Sodium 2.5 MG as directed Orally Not-Taking Cholestyramine 4 GM/DOSE 1/2 to 1 scoop in a glass of water or juice Orally Once or Twice a day for diarrhea for 30 day(s) 02/20/2023 Not-Takin g Celebrate Calcium Citrate 500-12.5 MG-MCG as directed Orally Active Omeprazole 40 MG 1 Orally Once a day for heartburn or stomach burning for 30 day(s) 09/19/2022 Not-Taking Vitamin D-3 25 MCG (1000 UT) 1 capsule Orally Once a day for 30 day(s) Active Ondansetron 4 MG 1 tablet on the tong ue and allow to dissolve Orally Every 4 to 6 hours as needed for nausea for 30 day(s) 09/19/2022 Active Vitamin C 500 MG as directed Orally Active Imodium A-D 1 1 tablet Orally as needed Active PreserVision AREDS - as directed Orally Active Simethicone 125 MG 1 tablet after meals and at bedtime as needed Orally Four times a day Active D-Mannose - as directed Active Tylenol PM Extra Strength 500-25 MG 1-2 tablet at bedtime as needed at hs Active Acetaminophen 500 MG 1 capsule as needed Orally every 6 hrs Active Voltaren 1 % as directed Transdermal Active IMMUNIZATIONS Vaccine Route Administration Date Status Comme nts Influenza Unknown 01/24/2016 Administered Influenza Unknown 12/24/2017 Administered Influenza Unknown 02/02/2019 Administered Influenza Unknown 01/25/2020 Administered Influenza Unknown 04/15/2023 Administered SOCIAL HISTORY Sex Assigned At : Social History Observation Description Sex Assigned At Unknown PROBLEMS Problem Type ICD Code Onset Dates Problem Status W/U Status Risk SNOMED Code Notes Problem Irritable bowel syndrome with diarrhea (K58.0) Active confirmed 087601700 Problem Dysphagia, pharyngoesophageal phase (R13.14) Active confirmed Pharyngeal dysphagia (577204999961 05) Problem Dysphagia (R13.10) Active confirmed Dys phagia (45847017) Problem Gastroesophageal reflux disease without esophagitis (K21.9) Active confirmed 302629586 Problem Esophageal stricture (K22.2) Active confirmed Esophageal stricture (51540020) Problem Pharyngoesophageal dysphagia (R13.14) Active confirmed 44029625 Problem Abnormal barium swallow (R93.3) Active confirmed Barium swallow abnormal (732215779) Problem Esophageal dysphagia (R13.10) Active confirmed 56718622 Problem Benign esophageal stricture (K22.2) Active confirmed Benign esophageal stricture (292198354) VITAL SIGNS Temperature 97.5 degrees Fahrenheit 01/23/2024 Blood pressure diastolic 00 mm Hg 01/23/2024 Height 61.25 in 01/23/2024 Blood pressure systolic 000 mm Hg 01/23/2024 Weight 143 lbs 01/23/2024 BMI 26.80 kg/m2 01/23/2024 Encounters Encounter Location Date Provider Diagnosis [facility] Outpatient [address] [place], [place] [id number] 02/23/2024 Jordan Sanchez Esophageal stricture K22.2 ; Hiatal hernia K44.9 ; Dysphagia R13.[address] scan, esophagus R93.[address] [facility] Outpatient [address] [place], [place] [phone] 03/01/2024 Jordan Sanchez [facility] [address] [place] [phone] 01/23/2024 Jordan Sanchez Pharyngoesophageal dysphagia R13.14 ; Irritable bowel syndrome with diarrhea K58.0 ; Abnormal barium swallow R93.3 and Dysphagia R13.10 [facility] [address] [place] [phone] 01/05/2024 Jordan Sanchez Dysphagia, pharyngoesophageal phase R13.14 and Esophageal stricture K22.2 [facility] [address] [place] [phone] 01/28/2024 Jordan Sanchez [facility] [address] [place] [phone] 02/24/2024 Jordan Sanchez [facility] [address] [place] [phone] 02/26/2024 Jordan Sanchez Dysphagia R13.10 and Benign esophageal stricture K22.2 [facility] [address] [place] [address] 03/01/2024 Jordan Sanchez [facility] [address] [place] [phone] 01/23/2024 Jordan Sanchez ASSESSMENTS Encounter Date Diagnosis Assessment Notes Treatment Notes Treatment Clinical Notes 02/23/2024 Esophageal stricture (ICD-10 - K22.2) 02/23/2024 Hiatal hernia (ICD-1 0 - K44.9) 01/23/2024 Irritable bowel synd ana with diarrhea (ICD-10 - K58.0) 01/23/2024 Pharyngoesophageal dysphagia (ICD-10 - R13.14) Stop Turmeric for 1 week before the endoscopy 01/05/2024 Dysphagia, pharyngoesophageal phase (ICD-10 - R13.14) 02/26/2024 Dysphagia (ICD-10 - R13.10) 02/26/2024 Benign esophageal stricture (ICD-10 - K22.2) 02/23/2024 Dysphagia (ICD-10 - R13.10) 01/23/2024 Abnormal barium swal low (ICD-10 - R93.3) 02/23/[address] scan, esophagus (ICD-10 - R93.3) 01/23/2024 Dysphagia (ICD-10 - R13.10) 01/05/2024 Esophageal stricture (ICD-10 - K22.2) PLAN OF TREATMENT Pending Test Test Name Order Date ENDOMYSIAL IGA 08/27/2012 TRANSGLUTAMINASE AB IGA 08/27/2012 TRANSGLUTAMINASE AB IGG 08/27/2012 XR BARIUM SWALLOW-ESOPHAGUS 04/16/2016 XR BARIUM SWALLOW-ESOPHAGUS 01/05/2024 XR BARIUM SWALLOW, MODIFIED VIDEO 2012 Pathology 02/23/2024 FL barium swallow with air 01/14/2024 Future Test Test Name Order Date UPPER GI ENDOSCOPY BALLOOON DILATION OF ESOPH 12/16/2012 COLONOSCOPY 12/16/2012 UPPER GI ENDOSCOPY BALLOOON DILATION OF ESOPH 10/02/2018 UPPER GI ENDOSCOPY BALLOOON DILATION OF ESOPH 01/23/2024 UPPER GI ENDOSCOPY BALLOOON DILATION OF ESOPH 02/27/2024 Next Appt Details Provider Name:Jordan Sanchez 07/05/2024 07:30:00 AM, [facility] , [place], [place], [phone], Insurance Providers Payer Name Payer Address Payer Phone Subscriber Number Group Number Insured Name Patient Relationship to Insured Coverage Start Date Coverage End Date [facility] [address] [place] [address] [id number] MARÍA MOHAN Self - patient is the insured MEDICAID OF [facility] [address] [place] [address] [id number] MARÍA MOHAN - patient is the insured MEDICAL (GENERAL) HISTORY Medical History History ICD Code Hiatal hernia Duodenal ulcer-previous gastric biopsies were negative for H. pylori She has a long-standing hist ory of dysphagia and GERD, with what I feel is a possible component of a previous proximal esophageal web that has undergone periodic dilations in the past with intermittent improvement in her swallowing. Her most recent upper endoscopy was in May of 2012. This was somewhat difficult as she remained somewhat agitated and restless during the procedure, despite sedation with an anesthesiologist using propofol. However, I did not visualize any definitive esophageal web nor stricture, and biopsies from the proximal esophagus were negative for eosinophilic esophagitis. I briefly dilated the very proximal upper esophagus and upper esophageal sphincter with a balloon, but I am not really sure how effective that was given her level of agitation and restlessness during the procedure. Of note, she has seen Dr. Gallardo from ENT, primarily for problems including hoarseness-according to his notes it appears that she had a lot of mucus, and at times candidiasis, in the oropharynx area that might be contributing to her symptoms as well. She did have a modified barium swallow in May,, in which the speech pathologist describes that she appears to have some cricopharyngeal dysfunction and holdup at the level of the upper esophageal sphincter and epiglottis. They had recommended different maneuvers for her to try to alleviate her symptoms, but I am not sure if she really does that. EGD in 12/2012 with balloon dilation of the proximal esophagus with a 12 mm, 14 mm and 16 mm pyloric dilating balloon and I dilated the gastroesophageal junction with an 18 mm esophageal dilating balloon Reflex sympathetic dystrophy with chroni c pain Hyperlipidemia HTN History of tubular adenomas of the colon, with her last colonoscopy being in 2008 Denies [place],CVA,renal disease Intermittent diarrhea, felt to be probably related to IBS-previous trials of cholestyramine were not helpful, nor did she like the taste--biopsies were negative for celiac disease Anxiety Asthma Arthritis Hospitalized in 10/2012 for c hest pain-neg. [place]-had an ETT that was reportedly negative Upper endo with GA in 12/2012 with good results--dilated the proximal esophagus with up to a 16mm balloon--has had good relief Anemia--Hgb 11.8 and MCV of 86--Iron of 35, Iron sat 9%,and Ferritin of 14--sees Dr. Reyes--biopsies were negative for celiac disease Neg CT of abd/pelvis in 02/24 013--slight elevation of LFT's--AST 38 and ALT of 74--Neg. Hep B and C Urinary incontinence Angioedema NIDDM Hypokalemia Sleep apnea Pleurisy Small bowel obstruction 05/2016--treated without surgery urinary incontinence Overactive bladder Neg screening colonoscopy in 11/2018-EGD with GA with ball oon dilation of upper esophageal sphincter up to a 16.5 mm balloon--had pain afterwards but no complication Osteoporosis Rheumatoid arthritis Surgical History Surgery Date(Month/Year) Cholecystectomy Lumpectomy-benign Deviated septum Hemorrhoidectomy Umbilical hernia repair--Dr. Stout Lap gastric bypass and hiata l hernia repair 01/[address] Nuno with a 170# weight loss as of the 11/22/2020 OV Cystocele/Rectocele Bladder suspension
[2024-05-20 07:37] LABS: Alanine Aminotransferase 18 U/L (0-31); Albumin Level 3.9 g/dL (3.5-5.0); Anion Gap 12 (12-20); Aspartate Amino Transferase 23 U/L (5-31); Bilirubin Total 0.4 mg/dL (0.0-1.0); Blood Urea Nitrogen 13 mg/dL (9-16); Calcium 8.6 mg/dL (8.4-10.2); Carbon Dioxide 23 mmol/L (22-29); Chloride 109 mmol/L (96-108); Cholesterol 154 mg/dL (<200); Estimated Glomerular Filt Rate > 60; Glucose Random 91 mg/dL (60-115); HDL Cholesterol 43 mg/dL (>40); Iron 31 mcg/dL (30-160); LDL Cholesterol Calculated 90 mg/dL (<100); Magnesium 2.2 mg/dL (1.6-2.6); Percent Iron Saturation 10 % (15-50); Phosphorus 3.5 mg/dL (2.7-4.5); Potassium 4.2 mmol/L (3.3-5.1); Sodium 140 mmol/L (135-145); Total Iron Binding Capacity 308 mcg/dL (228-428); Total Protein 6.5 g/dL (6.5-8.0); Triglycerides 109 mg/dL (<150); Unsaturated Iron Binding 277 ug/dL
[2024-05-20 07:51] LABS: Alkaline Phosphatase 95 U/L (39-117)
[2024-05-20 08:01] LABS: Thyroid Stimulating Hormone 1.15 uIU/mL (0.32-4.0); Vitamin D 25-OH Total 17.8 ng/mL (>30)
[2024-05-20 08:08] LABS: Folate 14.2 ng/mL (> or = 4.0); Vitamin B12 432 pg/mL (200-900)
[2024-05-22 21:24] LABS: Vitamin A 28 mcg/dL (38-98)
[2024-05-23 18:13] LABS: Zinc 55 mcg/dL (60-130)
[2024-05-24 13:09] LABS: Vitamin B1 32 nmol/L (8-30)
== END 2024-05-20 06:03 | disposition home or self-care (01) ==
LOC: HO.LAB 06:02
PROVIDERS: PCP Internal Medicine; Visit Provider Physician Assistant Surgical
DX: Z13.6 Encounter for screening for cardiovascular disorders (principal); Z98.84 Bariatric surgery status
CPT/HCPCS: 36415; 80053; 80061; 82306; 82607; 82746; 83540; 83735; 84100; 84425; 84443; 84590; 84630

== ENCOUNTER 2024-06-07 10:43 | Outpatient (AMB) | payer OTHER, SELFPAY ==
--- NOTE | 2024-06-07 10:40 | MHC.OFFVISWM ---
VS Expanded 06/07/24 10:53 Height 5 ft 1 in Weight 147 lb BMI 27.8 Intake Visit Reasons: TELEPHONE LSG 02/10/19 Allergies hydrochlorothiazide [HYDROCHLOROTHIAZIDE] Allergy (Severe, Verified 04/14/24 08:20) ANGIOEDEMA lisinopril [LISINOPRIL] Allergy (Severe, Verified 04/14/24 08:20) ANGIOEDEMA Sulfa (Sulfonamide Antibiotics) [SULFA (SULFONAMIDE ANTIBIOTICS)] Allergy (Severe, Verified 04/14/24 08:20) FACIAL SWELLING iron [IRON] Allergy (Intermediate, Verified 04/14/24 08:20) NAUSEA lactose [LACTOSE] Allergy (Intermediate, Verified 04/14/24 08:20) DIARRHEA sertraline [From ZOLOFT] Allergy (Intermediate, Verified 04/14/24 08:20) INSOMNIA codeine Allergy (Unknown, Verified 04/14/24 08:20) Unknown lobster Allergy (Uncoded 04/14/24 08:20) Anaphylaxis Medication List - Last Reconciled 06/07/24 by ELLEN Araujo acetaminophen 500 mg PO Q6H PRN amlodipine 5 mg PO DAILY ascorbic acid (vitamin C) 1,000 mg PO DAILY 90 days calcium citrate-vitamin D3 315 mg-6.25 mcg (250 unit) 1 tab PO DAILY cetirizine 10 mg PO DAILY cholecalciferol (vitamin D3) (Vitamin D3) 50 mcg PO BID d-mannose ea diclofenac sodium 1% 4 grams topical QID PRN 90 days dicyclomine 10 - 20 mg PO Q6H PRN diphenhydramine-acetaminophen 25-500 mg (Tylenol PM Extra Strength) 2 tabs PO BEDTIME PRN epinephrine IM estradiol 0.01%(0.1mg/gram) pea sized amount to urethra three time per week 90 days famotidine 20 mg PO BEDTIME fluticasone propionate 50 mcg/actuation 1 spray intranasal DAILY ipratropium bromide 2.5 mL inhalation Q8-10H PRN loperamide (Imodium A-D) 2 mg PO QID PRN losartan 100 mg PO DIRECTED methenamine hippurate 1 g PO DAILY 90 days methotrexate sodium 15 mg (6 x 2.5 mg) PO QWEEK mirabegron ER (Myrbetriq) 50 mg PO DAILY 90 days ondansetron 4 mg PO Q6H PRN pregabalin 75 mg PO BID [rollator walker with seat. As directed] simethicone 125 mg PO QIDACHS PRN tizanidine 4 mg PO Q8H PRN trazodone 50 mg (1/2 x 100 mg) PO BEDTIME PRN turmeric root extract 500 mg PO DAILY vitamin A palmitate 10,000 units PO DAILY vitamins A,C,R-kcak-brraki 2,148 mcg-113 mg-45 mg-17.4mg (PreserVision AREDS) 2 tabs PO BID zinc gluconate 30 mg PO DAILY HPI Comments Details: This?is a?73?yo female who is s/p RYGB 02/10/2019. Presents for 5 year post op visit. Weight today is 147 pounds, which she says is a 17lb weight gain since Pema left .? No complaints of nausea, emesis, abdominal pain or reflux, or constipation. Present meal plan includes: not getting enough protein currently has intolerance to meat, feels sick after eating- except ground meats still does at least one protein shake per day, tries to get two tries to drink Fairlife milk sometimes for dairy [facility] Medical History (Updated 06/07/24 @ 10:53 by ELLEN Araujo) Overweight Overactive bladder Bowel obstruction Pleurisy Sleep apnea Hypokalemia Diabetes Angioedema Arthritis Anxiety IBS (irritable bowel syndrome) Hyperlipidemia Duodenal ulcer Hiatal hernia Lesion of bladder Nephrolithiasis UTI (urinary tract infection) Annual physical exam Protein deficiency Ventral hernia Binge-eating disorder, moderate Osteoarthritis of knees, bilateral BMI 25.0-25.9,adult Osteopenia Annual physical exam Degenerative disc disease, cervical Spondylosis of cervical spine Obesity (BMI 30-39.9) Vaginal prolapse Peptic ulcer disease Esophageal stricture Vitamin D deficiency Peripheral neuropathy GERD (gastroesophageal reflux disease) Hypercholesterolemia RSD (reflex sympathetic dystrophy) Peripheral vascular disease Anemia Small bowel obstruction Osteopenia History of esophageal dilatation Tubular adenoma of colon Obstructive sleep apnea Hypertension Hemorrhoids Deviated septum Impaired glucose tolerance History of duodenal ulcer Osteoarthritis of knees, bilateral COPD (chronic obstructive pulmonary disease) Surgical History Hx of lumpectomy H/O colonoscopy History of esophagogastroduodenoscopy (EGD) Cystocele History of repair of hiatal hernia Hx of gastric bypass History of arthroscopy of left knee History of umbilical hernia repair History of tubal ligation History of hemorrhoidectomy History of nasal surgery History of tonsillectomy History of cholecystectomy Family History Father No problems noted. Mother No problems noted. Daughter Psoriatic arthritis Social History Housing: Apartment Alcohol intake: former Comment: pressure Patient Tobacco Use Status: Former Tobacco user Tobacco use type: Cigarette e-Cigarette/Vaping Use: Never Used Second Hand Smoke Exposure: No service: No Current occupational status: retired Gender identity: Female Cognitive needs: No Hearing needs: No Vision needs: Yes (glasses) Female Reproductive History Menstrual Age of Menarche: 10 Assessment & Plan Assessment & Plan (1) Hx of gastric bypass: Comment: January 2019 Code(s): Z98.84 - Bariatric surgery status Category: Surgical (2) Overweight: Code(s): E66.3 - Overweight Category: Medical Plan Pt wants to continue to meet with , feels that was what helped her stay on track with her weight. Will set up appt with Nessa. Labs reviewed, ordered vit A/zinc supp. RTC 3mo for accountability- pt aware she needs to adjust her meal plan, increase protein intake. I spent a total of 30 minutes reviewing/updating records, examining the patient and counseling the patient on weight management as detailed above. Medications: New vitamin A palmitate 10,000 units PO DAILY 90 caps 3RF zinc gluconate 30 mg PO DAILY 90 tabs 3RF
[2024-06-07 10:53] VITALS: BMI 27.8
--- OUTSIDE RECORDS SUMMARY | 2024-06-07 12:25 | XMS_ITS ---
[facility] [place] [address] [place] [address] Care Team Providers Care Process Safety Specialist Name Role Phone Margaret Webber Primary Care Provider Unavailab Shellie Simpson Unavailable [phone] Allergies Allergen (clinical drug ingredient) Drug/Non Drug Allergy documented on EMR Reaction Allergy Type Onset Date Status sulfamethoxazole / trimethoprim Bactrim Unknown Drug Allergy Active hydrochlorothiazide Hydrochlorothiazide Unknown Drug Aller gy Active Iron Unknown Drug Allergy Active Lactose Unknown Drug Allergy Active lisinopril Lisinopril Unknown Drug Allergy Activ e Sertraline HCl Unknown Drug Allergy Ac tive shrimp allergenic extract Shrimp (Diagnostic) Unknown Drug Allergy Active Shellfish (FN) Shellfish-derived Products Unknown Drug Allergy Active REASON FOR VISIT At Risk Footcare, Ingrown Nail, Foot pain, Skin problem(s) Medications Medication SIG (Take, Route, Frequency, Duration) Notes Start Date End Date Status Advair Diskus 250-50 MCG/DOSE 1 puff Inhalation Twice a day Not-Taking Metoprolol Succinate ER 50 MG 1 tablet Orally Once a day Not-Taking Incruse Ellipta 62.5 MCG/INH 1 puff Inhalation Once a day Not-Taking Methotrexate Not-Dexter ing Lyrica 50 MG Orally Twice a day Not-Taking traMADol HCl 50 MG 1 tablet as needed Orally every 6 hrs Not-Taking Vitamin B 12 Not-Dexter ing Folic Acid Not-Takin g Lamisil Not-Taking Atropine Sulfate 1 tab Oral No t-Taking amLODIPine Besylate 5 MG 1 tablet Orally Once a day Not-Taking Fluticasone-Salmeterol 250-50 MCG/DOSE 1 puff Inhalation Twice a day Not-Taking Atorvastatin Calcium 20 MG 1 tablet Orally Once a day Not-Taking Albuterol Sulfate 108 (90 Base) MCG/ACT 2 puffs as needed Inhalation every 6 hrs Not-Takin g Losartan Potassium 50 MG Orally Not-Taking Meloxicam 15 MG 1 tablet Orally Once a day for 30 day(s) Not-Taking Gabapentin Not-Takin g Vitamin A Not-Taking Voltaren 1 % Transdermal Not-T aking Methotrexate Sodium 2.5 MG as directed Orally Not-Takin g Extra Depth Orthopedic Shoes (1 Pair) with Customized Heat Molded Multidensity Innersoles (3 Pair) as directed Dx: NIDDM/Polyneuropathy (E11.42), Hammertoe Foot Deformity (M20.41,M20.42), Preulcerative Skin Lesion(s) (L85.1 06/05/2023 Active tiZANidine HCl 4 MG 1 tablet as needed Orally Three times a day Active traZODone HCl 100 MG 1 tablet at bedtime Orally Once a day Active Folic Acid Not-Takin g Famotidine Not-Takin g Vitamin C 1000 MG 1 tablet Orally Once a day Active Omeprazole 40 MG 1 capsule Orally Onc e a day Active Myrbetriq Active Methenamine Hippurate 1 GM 1 tablet Orally Twice a day Active Vitamin D Active Dicyclomine HCl 10 MG 2 capsules Orally Three times a day for 30 day(s) Active Cetirizine HCl Activ e EpiPen Active Lyrica 75 MG 1 capsule Orally Onc e a day Active Estradiol Active CeleBREX 200 MG 1 capsule with food Orally Once a day Active Calcium Citrate + D3 Active Ammonium Lactate 12 % 1 application Exte rnally to affected areas of dry skin to feet except for between the toes Twice a day for 30 days Active amLODIPine Besylate 5 MG 1 tablet Orally Once a day Active Social History Tobacco Use: Social History [...] No Vital Signs Height 5ft 1in in 05/27/2024 Weight 143 lbs 05/27/2024 BMI 27.02 kg/m2 05/27/2024 Blood pressure systolic 130 mm Hg 05/27/19 25 Blood pressure diastolic 80 mm Hg 025 Procedures Procedure Date Ordered Date Performed Result Body Sit e 50884-Qguhzpnu Plate 05/27/2024 N/A 44127-GJSH SKIN LESIONS, OVER 4 05/27/2024 N/A [id number] DYSTROPHIC NAILS ANY # 05/27/2024 N/A Encounters Encounter Location Date Provider Diagnosis [facility] [place] [address] [place] [address] 05/27/2024 Shellie Black Pain in right foot M79.671 ; Metatarsalgia, right foot M77.41 ; Type 2 diabetes mellitus with diabetic polyneuropathy E11.42 ; Ingrown nail L60.0 ; Pain in right ankle and joints of right foot M25.571 ; Bursitis of intermetatarsal bursa of right foot M77.51 and Xerosis of skin L85.3 Assessments Encounter Date Diagnosis (ICD Code) Assessment Notes Treatment Notes Treatment Clinical Notes Section Notes 05/27/2024 Pain in right foot (ICD-10 - M79.671) 05/27/2024 Metatarsalgia, right foot (ICD-10 - M77.41) 05/27/2024 Type 2 diabetes mellitus with diabetic polyneuropathy (ICD-10 - E11.42) 05/27/2024 Ingrown nail (ICD-10 - L60.0) 05/27/2024 Pain in right ankle and joints of right foot (ICD-10 - M25.571) 05/27/2024 Bursitis of intermetatarsal bursa of right foot (ICD-10 - M77.51) 05/27/2024 Xerosis of skin (ICD-10 - L85.3) Plan Of Treatment Medication Medication Name Sig Start Date Stop Date Notes Ammonium Lactate 12 % 1 application Exte rnally to affected areas of dry skin to feet except for between the toes Twice a day for 30 days Pending Test Test Name Order Date 79135-Adpzsevt Plate 05/27/2024 73308-SFOR SKIN LESIONS, OVER 4 05/27/19 25 [id number] DYSTROPHIC NAILS ANY # Next Appt Details Follow Up: 2 Weeks,prn, Reas on: Provider Name:Shellie Drummond , 08/05/2024 08:15:00 AM, [address] [place] [address], [phone], Provider Name:Shellie Drummond , 10/07/2024 08:15:00 AM, [address] [place] [address], [phone], Procedure Notes * Category Sub-Category Detail Notes Nail Avulsion Procedure A fine sterile e levator was placed between the eponychium, nail fold, and nail plate to separate the structures. A sterile nail splitter, and/or sterile 316 blade, was then used to longitudinally section the nail along its entire length through the eponychium to the area under the nail fold. The offending portion of nail was from the nail bed with a rolling action and then removed with a hemostat. No underlying bone was identified. There was minimal bleeding as hemostasis was achieved through the temporary use of either a digital tourniquet or the aforementioned local with epinephrine. A bacitracin sterile dressing was applied. Local wound aftercare instructions were discussed and dispensed. The patient was informed of both conservative and future surgical procedures to prevent recurrence. Tylenol or Motrin was recommended for pain or discomfort (72300), DIABETES: Matricectomy deferred at this time due to diabetes risk Anesthesia , was deferred - KIM ROPATHY: patient has medically documented neuropathic condition affecting sensation Location Medial nail border, T6 Keratoma Treatment Parring or Cutting o f Benign Hyperkeratotic Lesion(s) (-57) More than 4 Lesions - Due to the a t risk nature of the patients medical condition as documented in the exam findings, performance of this keratoderma treatment is medically necessary as its management by an unskilled/untrained nonprofessional would put this patients foot and overall health at risk. Therefore, the benign hyperkeratotic lesions, ( 6) in total, locations as stated and described in the exam ( IPJ, TA, T5,Plantar Heel(s), B/L, SUB MTH (s), 2, B/L), were pared, and/or cut utilizing a sterile 15 blade, tissue nippers, and/or power dremel instrumentation by the physician of record - 96917 Nail Reduction Nail Reduction (-27) Trimming o f all dystrophic nails - Due to the at risk nature of the patients medical condition as documented in the exam findings, performance of this nail treatment is medically necessary as its management by an unskilled/untrained nonprofessional would put this patients foot and overall health at risk. Therefore, the dystrophic nails, in locations as stated and described in the exam ( T1 T2, T3, T4, T7,T8, T9,), were debrided by the phisician of record to reduce/remove overall nail length and girth, by manual and electrical means with use of a nail nipper and/or dremel, to more viable healthy nail plate or bed tissue - G0127 Progress Notes * GOYO María LDOB:[birth year] (73 yo F)Acc No.[id number]:05/27/2024 Progress Note Patient:?María SAWYER Provider:?Shellie Drummond DPM :1950???Age:73 Y???Sex:Female D ate:05/27/2024 Address:[address] [place], [place] [id number] Pcp:Margaret Webber Subjective: * Chief Complaints: * ???At Risk FootcareIngrown N ailFoot painSkin problem(s) * HPI: ???At Risk footcare:?Pt States Last PCP Visit:?Date?05/24/2024 ???Foot Pain:?Location:?Bottom, Forefoot, RIGHT.?Duration:?, several months.?Course:?worse.?Treatments:?rest/alter normal daily activity.?Skin problems:?Nature:?dryness , scaling.?Location:?B/L .?Duration:?several days.?Course:?worse.? * ROS:?General/Constitutional:?Nausea?denies.?Vomiting?denies.?Hunger Thirst?denies.?Loss appetite?denies.?Chills?denies.?Fatigue?denies.?Fever?denies.?Night Sweats?denies.?Unexplained weight loss?denies.?Unexplained weight gain?denies.?HEENTM:?Dentures?admits.?Dizziness?denies.?Glasses/contacts?denies.?Retinopathy?de nies.?Blurred/double vision?denies.?TMJ?denies.?Discharge/drainage?denies.?Implants?denies.?Sore throat?denies.?Dental implants?denies.?Hard of hearing ?denies.?Difficulty chewing/swallowing/speaking?admits.?Nose bleeds?denies.?Sore mouth?denies.?Respiratory:?On Oxygen?denies.?Pneumonia/pleurisy?denies.?Bronchitis?denies.?Emphysema?denies.?C oughing?denies.?Cough blood?denies.?Shortness of breath?denies.?Wheezing?denies.?Cardiovascular:?Pacemaker?denies.?MVP?denies.?WPW?denies.?CHF?denies.?Heart attack?denies.?Septal defect?denies.?Rapid beat?denies.?Chest pain ?denies.?Atrial Fib.?denies.?Murmur/Palpitations?denies.?Gastrointestinal:?Hemorrhoids?admits.?Stomach/Abdominal pain?admits.?Dark blood stool?denies.?Irritable bowel ?denies.?Constipation?denies.?Diarrhea?admits.?Hematology:?Swelling?admits.?Clots?denies.?Varicose Veins?denies.?Bruising?admits.?Bleeding problem?denies.?Genitourinary:?Blood urine?denies.?Frequent/Painfu/urination/bladder control?admits.?Kidney stones?denies.?Infection (UTI)?denies.?Nephropathy?denies.?sex trans dis (STD)?denies.?Prostate?denies.?Musculoskeletal:?Hammertoes?admits.?Bunions?denies.?Back Pain?admits.?Muscle Cramps/ Resting?admits.?Muscle cramps / walking?denies.?Generalized aches and pains?denies.?Weakness?denies.?Integ.:?Mast?denies.?Scars?denies.?Corns/calluses?, admits.?Ingrown nails?admits.?Painful nails?admits.?Open Sores?denies.?Rashes?denies.?Neurologic:?Difficulty sleeping?admits.?Brain disorder?denies.?Numbness?admits.?Balance trouble?denies.?Confusion?denies.?Fainting/blackouts?denies.?Tingling?admits.?Tr emors?denies.? * Medical History:? * Surgical History:?gall bladd er 1995lumpectomy 1980umbilical hernia repair 2017deviated septum [...] per day decaff tea. ?Children: yes, 2. ?Exercise: no. ?Marital status: single. 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 * Medications:?TakingCeleBREX 200 MG Capsule 1 capsule with food Orally Once a day amLODIPine Besylate 5 MG Tablet 1 tablet Orally Once a day Calcium Citrate + D3 Cetirizine HCl Dicyclomine HCl 10 MG Capsule 2 capsules Orally Three times a day EpiPen Estradiol Lyrica 75 MG Capsule 1 capsule Orally Once a day Methenamine Hippurate 1 GM Tablet 1 tablet Orally Twice a day Myrbetriq Omeprazole 40 MG Capsule Delayed Release 1 capsule Orally Once a day Vitamin C 1000 MG Tablet 1 tablet Orally Once a day Vitamin D traZODone HCl 100 MG Tablet 1 tablet at bedtime Orally Once a day tiZANidine HCl 4 MG Tablet 1 tablet as needed Orally Three times a day Extra Depth Orthopedic Shoes (1 Pair) with Customized Heat Molded Multidensity Innersoles (3 Pair) as directed Dx: NIDDM/Polyneuropathy (E11.42), Hammertoe Foot Deformity (M20.41,M20.42), Preulcerative Skin Lesion(s) (L85.1 Taking CeleBREX 200 MG Capsule 1 capsule with food Orally Once a day Taking amLODIPine Besylate 5 MG Tablet 1 tablet Orally Once a day Taking Calcium Citrate + D3 Taking Cetirizine HCl Taking Dicyclomine HCl 10 MG Capsule 2 capsules Orally Three times a day Taking EpiPen Taking Estradiol Taking Lyrica 75 MG Capsule 1 capsule Orally Once a day Taking Methenamine Hippurate 1 GM Tablet 1 tablet Orally Twice a day Taking Myrbetriq Taking Omeprazole 40 MG Capsule Delayed Release 1 capsule Orally Once a day Taking Vitamin C 1000 MG Tablet 1 tablet Orally Once a day Taking Vitamin D Taking traZODone HCl 100 MG Tablet 1 tablet at bedtime Orally Once a day Taking tiZANidine HCl 4 MG Tablet 1 tablet as needed Orally Three times a day Taking Extra Depth Orthopedic Shoes (1 Pair) with Customized Heat Molded Multidensity Innersoles (3 Pair) as directed Dx: NIDDM/Polyneuropathy (E11.42), Hammertoe Foot Deformity (M20.41,M20.42), Preulcerative Skin Lesion(s) (L85.1 Not-Taking/PRNFamotidine Folic Acid Methotrexate Sodium 2.5 MG Tablet as directed Orally Voltaren 1 % Gel Transdermal Vitamin A Gabapentin Meloxicam 15 MG Tablet 1 tablet Orally Once a day Atorvastatin Calcium 20 MG Tablet 1 tablet Orally Once a day Fluticasone-Salmeterol 250-50 MCG/DOSE Aerosol Powder Breath Activated 1 puff Inhalation Twice a day amLODIPine Besylate 5 MG Tablet 1 tablet Orally Once a day Losartan Potassium 50 MG Tablet Orally Albuterol Sulfate 108 (90 Base) MCG/ACT Aerosol Powder Breath Activated 2 puffs as needed Inhalation every 6 hrs Atropine Sulfate 1 tab Oral Lamisil Folic Acid Vitamin B 12 traMADol HCl 50 MG Tablet 1 tablet as needed Orally every 6 hrs Advair Diskus 250-50 MCG/DOSE Aerosol Powder Breath Activated 1 puff Inhalation Twice a day Incruse Ellipta 62.5 MCG/INH Aerosol Powder Breath Activated 1 puff Inhalation Once a day Metoprolol Succinate ER 50 MG Tablet Extended Release 24 Hour 1 tablet Orally Once a day Methotrexate Lyrica 50 MG Capsule Orally Twice a day Medication List reviewed and reconciled with the patientNot-Taking/PRN Famotidine Not-Taking/PRN Folic Acid Not-Taking/PRN Methotrexate Sodium 2.5 MG Tablet as directed Orally Not- Taking/PRN Voltaren 1 % Gel Transdermal Not-Taking/PRN Vitamin A Not-Taking/PRN Gabapentin Not-Taking/PRN Meloxicam 15 MG Tablet 1 tablet Orally Once a day Not-Taking/PRN Atorvastatin Calcium 20 MG Tablet 1 tablet Orally Once a day Not-Taking/PRN Fluticasone-Salmeterol 250-50 MCG/DOSE Aerosol Powder Breath Activated 1 puff Inhalation Twice a day Not-Taking/PRN amLODIPine Besylate 5 MG Tablet 1 tablet Orally Once a day Not-Taking/PRN Losartan Potassium 50 MG Tablet Orally Not-Taking/PRN Albuterol Sulfate 108 (90 Base) MCG/ACT Aerosol Powder Breath Activated 2 puffs as needed Inhalation every 6 hrs Not-Taking/PRN Atropine Sulfate 1 tab Oral Not-Taking/PRN Lamisil Not-Taking/PRN Folic Acid Not-Taking/PRN Vitamin B 12 Not-Taking/PRN traMADol HCl 50 MG Tablet 1 tablet as needed Orally every 6 hrs Not-Taking/PRN Advair Diskus 250-50 MCG/DOSE Aerosol Powder Breath Activated 1 puff Inhalation Twice a day Not-Taking/PRN Incruse Ellipta 62.5 MCG/INH Aerosol Powder Breath Activated 1 puff Inhalation Once a day Not-Taking/PRN Metoprolol Succinate ER 50 MG Tablet Extended Release 24 Hour 1 tablet Orally Once a day Not-Taking/PRN Methotrexate Not-Taking/PRN Lyrica 50 MG Capsule Orally Twice a day Medication List reviewed and reconciled with the patient * Allergies:?Hydrochlorothiazi deIronLactoseLisinoprilSertraline HClBactrimShellfish-derived ProductsShrimp (Diagnostic)yes[Allergies Verified] Objective: * Vitals:?Ht: 5ft 1in, Wt:143, BMI:27.02, Shoe size: 9-9.5, BP:130/80mm Hg, BS: did not test, Ht-cm: 154.94 cm, Wt-k.86 kg. * Examination: ???Ophthalmology Referral: ?DIABETES EYE EXAM?General Examination: ?GENERAL APPEARANCE:?Reveals a pleasant, alert, well nourished, well- developed, well hydrated individual, who demonstrates proper attention to hygiene/body habitus, and is in no acute distress, Pt serves as own historian for office visit today.?ORIENTED:?person, place, and time.?FOOT EXAM:?Dermatologic: ?SKIN FINDINGS:?, Skin exam reveals Keratotic lesion(s) located at, IPJ, TA, T5,Plantar Heel(s), B/L, SUB MTH (s), 2, B/L , Skin shows sign(s) of, dryness, scaling, in a stocking fashion, no fissure(s) present, B/L.?Neurological: ?SENSORY:?Neurological exam demonstrates, reduced light touch sensation, reduced sharp/dull discrimination , reduced vibration sensation, reduced proprioception sensation, 5.07 monofilament test performed at plantar aspects of 5 varied sites per foot shows sensation, absent, , at Forefoot, B/L, Pt relates, increased?anesthesia,? forefoot B/L.?TINEL'S COMPRESSION:? Negative tarsal tunnel, jasvir pedis, and medial calcaneal nerves, Right.?Nails: ?NAILS are:?Elongated, overgrown, dystrophic, T1 T2, T3, T4, T7,T8, T9,.?Vascular: ?DP PULSES (B):? 2/4, B/L.?PT PULSES (B):? 2/4, B/L.?Ingrown Nail: ?INSPECTION:?Reveals nail incurvation, pain on palpation, groove hypertrophy, groove ischemia, Medial nail border, T6.?Orthopedic: ?GAIT ABNORMALITY:?antalgic.?DIGITAL DEFORMITIES:?Digital contracture, PIPJ, 2-5 B/L, incompl-reducible with WB, or to push-up test, no over, nor underlapping.?MPJ PATHOLOGY:? Pain, swelling, and inflammation to [id number], MPJ(s), RIGHT, No MPJ pain with ROM, [ - ] Ecchymosis.?Neuroma Pain: ?PALPATION:?No interspace pain noted on palpation.? Assessment: * Assessment: 1.?Pain in right foot - M79. 671???2.?Metatarsalgia, right foot - M77.41 (Primary)???Specify :Acute problem, Uncomplicated (3)???3.?Type 2 diabetes mellitus with diabetic polyneuropathy - E11.42???4.?Ingrown nail - L60.0???5.?Pain in right ankle and joints of right foot - M25.571???6.?Bursitis of intermetatarsal bursa of right foot - M77.51???7.?Xerosis of skin - L85.3???Specify :Acute problem, Uncomplicated (3),Rx Management (4)??? Plan: * Treatment: 2.?Ingrown nail?Procedure: 88172-Jgqvujuq Plate 3.?Xerosis of skin? Start Ammonium Lactate Cream, 12 %, 1 application, Externally to affected areas of dry skin to feet except for between the toes, Twice a day, 30 days, 140, Refills 2.?? * Procedures:?Keratoma Treatment:?Parring or Cutting of Benign Hyperkeratotic Lesion(s)?(-57) More than 4 Lesions - Due to the at risk nature of the patients medical condition as documented in the exam findings, performance of this keratoderma treatment is medically necessary as its management by an unskilled/untrained nonprofessional would put this patients foot and overall health at risk. Therefore, the benign hyperkeratotic lesions, ( 6) in total, locations as stated and described in the exam (??IPJ,?TA,?T5,Plantar Heel(s),?B/L,?SUB MTH (s),?2,?B/L), were pared, and/or cut utilizing a sterile 15 blade, tissue nippers, and/or power dremel instrumentation by the physician of record - 73821.?Nail Avulsion:?Location?Medial nail border, T6.?Anesthesia?, was deferred - NEUROPATHY: patient has medically documented neuropathic condition affecting sensation.?Procedure?A fine sterile elevator was placed between the eponychium, nail fold, and nail plate to separate the structures. A sterile nail splitter, and/or sterile 316 blade, was then used to longitudinally section the nail along its entire length through the eponychium to the area under the nail fold. The offending portion of nail was from the nail bed with a rolling action and then removed with a hemostat. No underlying bone was identified. There was minimal bleeding as hemostasis was achieved through the temporary use of either a digital tourniquet or the aforementioned local with epinephrine. A bacitracin sterile dressing was applied. Local wound aftercare instructions were discussed and dispensed. The patient was informed of both conservative and future surgical procedures to prevent recurrence. Tylenol or Motrin was recommended for pain or discomfort (40443), DIABETES: Matricectomy deferred at this time due to diabetes risk.?Nail Reduction:?Nail Reduction?(-27) Trimming of all dystrophic nails - Due to the at risk nature of the patients medical condition as documented in the exam findings, performance of this nail treatment is medically necessary as its management by an unskilled/untrained nonprofessional would put this patients foot and overall health at risk. Therefore, the dystrophic nails, in locations as stated and described in the exam ( T1 T2, T3, T4, T7,T8, T9,), were debrided by the phisician of record to reduce/remove overall nail length and girth, by manual and electrical means with use of a nail nipper and/or dremel, to more viable healthy nail plate or bed tissue - G0127.? * Procedure Codes:?G0127 RONDA ING DYSTROPHIC NAILS ANY #, Modifiers: XS 88703 Avulsion Plate, Modifiers: T6 20960 TRIM SKIN LESIONS, OVER 4, Modifiers: XS * Preventive Medicine:? ??Counseling:?Discussion:?-14: Office or other outpatient visit for the evaluation and management of an established patient, which required a medically appropriate history and/or examination and MODERATE level of DECISION MAKING for: 1 OR MORE CHRONIC PROBLEM(S) THATS WORSENING, 2 STABLE CHRONIC PROBLEMS, A NEWLY DIAGNOSED PROBLEM WITH UNCERTAIN PROGNOSIS, AN ACUTE COMPLICATED INJURY WITH MULTIPLE TREATMENT OPTIONS, OR AN ACUTE PROBLEM WITH ACCOMPANYING SYSTEMIC SYMPTOMS, THAT POSE(S) A MODERATE RISK OF MORBIDITY. THIS CONDITION MAY ALSO INCLUDE RX DRUG MANAGEMENT, OR A DECISON FOR MINOR SURGERY. The visit on the day of the encounter encompassed interpreting the data and educating the patient as to the nature of their condition, treatment options available according to their individual PMH, meds, allergies, and overall health/living conditions, as well as any potential risks or complications that may occur from a failure to adhere to, and participate in, the recommended course of therapy. The discussion included a complete verbal, and/or written explanation of the examination results, any x-rays taken, the proposed diagnosis, and outline of the treatment plan. A schedule for future care needs was also explained. The patient verbalized an understanding of the instructions at this time and agreed to be an active participant in their treatment. If the patient should think of any questions or concerns after the visit, I have encouraged the patient to call the office.?Metatarsalgea:?I explained to the patient the possible etiologies of their Metatarsalgea Foot pain, including foot type/shoegear/activity level/exercise routine and the risks/benefits of all the different treatment options for pain including: No treatment at all, Rest, Ice, NSAIDs(only if well tolerated after meals), New/supportive Shoe gear, Strappings and Tapings, Foot/Ankle AFO Bracing, Stretching exercises, Deep Tissue Massage, Arch support/shoe inserts, Custom orthoses, Topical analgesics including Aspercream/Voltaren gel, Physical Therapy, Cortisone injection therapy, EPAT/ESWT. Advantages and disadvantages of each option were discussed and the patients questions re: shoe gear, custom vs prefabricated inserts, activity level, PO vs Topical medications (and their respective potential complications/drug interactions/side effects), and consistency in home treatment regimens for optimal success were answered to their verbally confirmed satisfaction..?Orthotics:?I explained to the patient the benefits of OT use. I explained that orthoses are medically necessary to decrease the foot pain through proper mechanical control, support of their foot, decrease pain under the painful metatarsal by supplementing the soft tissue, possibly prevent surgery. We will check with pts insurance regarding coverage.?Xerosis:?The patient was counseled on the diagnosis, potential etiologies, and treatment options for their skin condition. We discussed the risks and benefits of each option from performing no treatment, to utilizing OTC topical skin creams/ointments, to utilizing prescription topical creams/ointments, to utilizing customized compounded topical medications and use of nocturnal occlusion with any/all previously detailed therapies. We discussed the advantages and disadvantages of each possible treatment and importance for adherence to all the recommended therapies for optimum success and avoid potential complications such as open sore/infection/possible hospitalization. We discussed the potential effectiveness of each topical preparation as well as each ones possible side effects and/or patient medication interactions. Patient questions re: use, dosage, successful outcomes, and application consistency were reviewed and the patient verbalized that all answers were clearly understood. The patient has decided to apply Rx skin creams to their feet save the interspaces while paying special attention to the heels. Such was sent to their pharmacy at the time of visit.? ??Screening/Special Tests:?Fall Risk?Screening:?No falls in the past year * Follow Up:?2 Weeks,prn * Images: * Sign off status: Completed true * Provider:?Shellie Drummond DPM Date:?2024 Generated for Joanie ny/Florentino/Rowan on:?06/07/2024 12:25 PM EST History and Physical Notes * HPI (History of Present Illness) Category Sub-Category Detail Notes Category Not es Skin problems Nature: dryness , scaling Location: B/L Duration: several days Course: worse At Risk footcare Pt States Last PCP Visit: Date: 4 Foot Pain Location: Bottom, Forefoot, RIGHT Duration: , several months Course: worse Treatments: rest/alter normal da kathryn activity Examination Category Sub-Category Detail Notes Category Not es Ingrown Nail INSPECTION: Reveals nail inc urvation, pain on palpation, groove hypertrophy, groove ischemia, Medial nail border, T6 Neuroma Pain PALPATION: No interspace pain noted on palpation Neurological SENSORY: Neurological exa m demonstrates, reduced light touch sensation, reduced sharp/dull discrimination , reduced vibration sensation, reduced proprioception sensation, 5.07 monofilament test performed at plantar aspects of 5 varied sites per foot shows sensation, absent, , at Forefoot, B/L, Pt relates, increased anesthesia, forefoot B/L TINEL'S COMPRESSION: Negative tarsal lizeth cecile, jasvir pedis, and medial calcaneal nerves, Right Dermatologic SKIN FINDINGS: , Skin exam reve als Keratotic lesion(s) located at, IPJ, TA, T5,Plantar Heel(s), B/L, SUB MTH (s), 2, B/L , Skin shows sign(s) of, dryness, scaling, in a stocking fashion, no fissure(s) present, B/L Orthopedic GAIT ABNORMALITY: antalgic DIGITAL DEFORMITIES: Digital contracture , PIPJ, 2-5 B/L, incompl-reducible with WB, or to push-up test, no over, nor underlapping MPJ PATHOLOGY: Pain, swelling, and inflammation to [id number], MPJ(s), RIGHT, No MPJ pain with ROM, [ - ] Ecchymosis General Examination GENERAL APPEARANCE: Reveals a pleasant, alert, well nourished, well-developed, well hydrated individual, who demonstrates proper attention to hygiene/body habitus, and is in no acute distress, Pt serves as own historian for office visit today FOOT EXAM: Lower Extremity Neurological Exa m performed:: Yes Visual exam of foot performed:: Yes Date: 05/27/2024 Sensory testing performed:: sensations d iminished Sensory and motor testing performed:: se nsations diminished Pedal pulse taking performed:: 2+ ORIENTED: person, place, and t keena Ophthalmology Referral DIABETES EYE EXAM Diabetic Retinopa thy Screening:: Yes Findings of Diabetic Eye Exam:: no retin opathy Vascular DP PULSES (B): 2/4, B/L PT PULSES (B): 2/4, B/L Nails NAILS are: Elongated, overgrown, dystro phic, T1 T2, T3, T4, T7,T8, T9,
--- OUTSIDE RECORDS SUMMARY | 2024-06-07 12:25 | XMS_ITS | Patient Health Record ---
Author [facility] [place] Address [address] [facility] [place] [address] Care Team Providers Care Booking Supervisor Name Role Phone Margaret Webber Primary Care Provider Unavailab Shellie Simpson Unavailable [phone] Allergies Allergen (clinical drug ingredient) Drug/Non Drug [...] Duration) Notes Start Date End Date Status Vitamin C 1000 MG 1 tablet Orally Once a day Active Advair Diskus 250-50 MCG/DOSE 1 puff Inhalation Twice a day Not-Taking Omeprazole 40 MG 1 capsule Orally Onc e a day Active traMADol HCl 50 MG 1 tablet as needed Orally every 6 hrs Not-Taking Myrbetriq Active Vitamin B 12 Not-Dexter ing Methenamine Hippurate 1 GM 1 tablet Orally Twice a day Active Folic Acid Not-Takin g Extra Depth Orthopedic Shoes (1 Pair) with Customized Heat Molded Multidensity Innersoles (3 Pair) as directed Dx: NIDDM/Polyneuropathy (E11.42), Hammertoe Foot Deformity (M20.41,M20.42), Preulcerative Skin Lesion(s) (L85.1 06/05/2023 Active tiZANidine HCl 4 MG 1 tablet as needed Orally Three times a day Active traZODone HCl 100 MG 1 tablet at bedtime Orally Once a day Active Metoprolol Succinate ER 50 MG 1 tablet Orally Once a day Not-Taking Ammonium Lactate 12 % 1 application Exte rnally to affected areas of dry skin to feet except for between the toes Twice a day for 30 days Active Vitamin D Active Incruse Ellipta 62.5 MCG/INH 1 puff Inhalation Once a day Not-Taking Lyrica 75 MG 1 capsule Orally Onc e a day Active Lamisil Not-Taking Estradiol Active Atropine Sulfate 1 tab Oral No t-Taking Albuterol Sulfate 108 (90 Base) MCG/ACT 2 puffs as needed Inhalation every 6 hrs Not-Takin g Losartan Potassium 50 MG Orally Not-Taking CeleBREX 200 MG 1 capsule with food Orally Once a day Active Meloxicam 15 MG 1 tablet Orally Once a day for 30 day(s) Not-Taking Gabapentin Not-Takin g Vitamin A Not-Taking Voltaren 1 % Transdermal Not-T aking Dicyclomine HCl 10 MG 2 capsules Orally Three times a day for 30 day(s) Active Cetirizine HCl Activ e amLODIPine Besylate 5 MG 1 tablet Orally Once a day Not-Taking Calcium Citrate + D3 Active Fluticasone-Salmeterol 250-50 MCG/DOSE 1 puff Inhalation Twice a day Not-Taking amLODIPine Besylate 5 MG 1 tablet Orally Once a day Active Atorvastatin Calcium 20 MG 1 tablet Orally Once a day Not-Taking EpiPen Active Methotrexate Not-Dexter ing Methotrexate Sodium 2.5 MG as directed Orally Not-Takin g Folic Acid Not-Takin g Famotidine Not-Takin g Lyrica 50 MG Orally Twice a day Not-Taking Immunizations Vaccine Route Administration Date Status Comme nts COVID-19 Pfizer BioNTech Vaccine Unknown 04/09/2021 Administered 1st 07/25/2020 2nd [...] Problem Acquired hammer toe of right foot (4407997956945731) Other hammer toe(s) (acquired), right foot (M20.41) Active confirmed Problem Acquired hammer toe of left foot (5333557956984775) Other hammer toe(s) (acquired), left foot (M20.42) Active confirmed Problem Ulcer of toe (970077288) Non-pressure chronic ulcer of other part of right foot limited to breakdown of skin (L97.511) Active confirmed Problem Acquired hammer toe of right foot (6536097551399741) Other hammer toe(s) (acquired), right foot (M20.41) Active confirmed Problem Acquired hammer toe of left foot (3940728044888687) Other hammer toe(s) (acquired), left foot (M20.42) Active confirmed Problem Polyneuropathy due to type 2 diabetes mellitus (925564354) Type 2 diabetes mellitus with diabetic polyneuropathy (E11.42) Active confirmed Problem 2927485 Arthritis (M19.90) Active confirmed Problem 717954101284831 Complex regional pain syndrome type 1 of both lower extremities (G90.523) Active confirmed Problem 23987807 Venous insufficiency (I87.2) Active confirmed Problem 773310247 Rheumatoid arthritis with positive rheumatoid factor, involving unspecified site (M05.9) Active confirmed Problem Acquired deformity of right foot (82663225790659900 ) PlantarFlexion of metatarsal of right foot (M21.6X1) Active confirmed Problem Acquired deformity of left foot (46924805021427346 ) PlantarFlexion of metatarsal of left foot (M21.6X2) Active confirmed Vital Signs Blood pressure diastolic 80 mm Hg 05/27/2024 Height 5ft 1in in 05/27/2024 Blood pressure systolic 130 mm Hg 05/27/2024 Weight 143 lbs 05/27/2024 BMI 27.02 kg/m2 05/27/2024 Procedures Procedure Date Ordered Date Performed Result Body Sit e 93067-Mzggwgax Plate 08/07/2023 N/A 57225-Fyxhiofv Plate Each Additional 08/07/2023 N/A 94379-PGAM SKIN LESIONS, 2 TO 4 08/07/2023 N/A F8215-SKIQYFON DYSTROPHIC NAILS ANY # 08/07/2023 N/A 89390-LNYW SKIN LESIONS, 2 TO 4 11/13/2023 N/A Q2629-RHHSDMAH DYSTROPHIC NAILS ANY # 11/13/2023 N/A 94020-NXJF SKIN LESIONS, OVER 4 03/19/2024 N/A D7323-EKDTVTYU DYSTROPHIC NAILS ANY # 03/19/2024 N/A 06118-Tlptmwli Plate 05/27/2024 N/A 43248-XJFV SKIN LESIONS, OVER 4 05/27/2024 N/A R7788-RNLAYTZL DYSTROPHIC NAILS ANY # 05/27/2024 N/A Encounters Encounter Location Date Provider Diagnosis [address] [address] 08/07/2023 Shellie Black Type 2 diabetes mellitus with diabetic polyneuropathy E11.42 ; Other hammer toe(s) (acquired), right foot M20.41 ; Complex regional pain syndrome type 1 of both lower extremities G90.523 ; Other hammer toe(s) (acquired), left foot M20.42 ; Rheumatoid arthritis with positive rheumatoid factor, involving unspecified site M05.9 and Ingrown nail L60.[address] [address] 11/13/2023 Shellie Black Type 2 diabetes mellitus with diabetic polyneuropathy E11.[address] [address] 03/19/2024 Shellie Black Type 2 diabetes mellitus with diabetic polyneuropathy E11.[address] [address] 05/27/2024 Shellie Black Pain in right foot M79.671 ; Metatarsalgia, right foot M77.41 ; Type 2 diabetes mellitus with diabetic polyneuropathy E11.42 ; Ingrown nail L60.0 ; Pain in right ankle and joints of right foot M25.571 ; Bursitis of intermetatarsal bursa of right foot M77.51 and Xerosis of skin L85.3 [facility] [address] [place] [address] 05/27/2024 Shellie Bhanu Assessments Encounter Date Diagnosis (ICD Code) Assessment Notes Treatment Notes Treatment Clinical Notes Section Notes 08/07/2023 Other hammer toe(s) (acquired), right foot (ICD-10 - M20.41) 08/07/2023 Type 2 diabetes mellitus with diabetic polyneuropathy (ICD-10 - E11.42) 11/13/2023 Type 2 diabetes mellitus with diabetic polyneuropathy (ICD-10 - E11.42) 03/19/2024 Type 2 diabetes mellitus with diabetic polyneuropathy (ICD-10 - E11.42) 05/27/2024 Metatarsalgia, right foot (ICD-10 - M77.41) 05/27/2024 Pain in right foot (ICD-10 - M79.671) 05/27/2024 Type 2 diabetes mellitus with diabetic polyneuropathy (ICD-10 - E11.42) 08/07/2023 Complex regional pain syndrome type 1 of both lower extremities (ICD-10 - G90.523) 08/07/2023 Other hammer toe(s) (acquired), left foot (ICD-10 - M20.42) 05/27/2024 Ingrown nail (ICD-10 - L60.0) 08/07/2023 Rheumatoid arthritis with positive rheumatoid factor, involving unspecified site (ICD-10 - M05.9) 05/27/2024 Pain in right ankle and joints of right foot (ICD-10 - M25.571) 08/07/2023 Ingrown nail (ICD-10 - L60.0) 05/27/2024 Bursitis of intermetatarsal bursa of right foot (ICD-10 - M77.51) 05/27/2024 Xerosis of skin (ICD-10 - L85.3) Plan Of Treatment Pending Test Test Name Order Date 10374-CQGXEFE NAIL, 1-09/15/2017 66325-YOYSQKS NAIL, 1-03/19/2018 20377-NDAKDNV NAIL, 1-01/08/2018 69980-UTNXRKC NAIL, 1-09/10/2018 16274-XGGUWKF NAIL, 1-5 12/14/2018 43912-NKOBJVW NAIL, 1-5 03/25/2019 40465-JACEJBY NAIL, 1-5 06/24/2019 86998-GKMYUGL NAIL, 1-5 11/11/2019 43485-RKRLPNS NAIL, 1-5 01/20/2020 33623-EHGCNSU NAIL, 1-5 03/30/2020 27154-SMLRKJP NAIL, 1-5 07/13/2020 02894-OLYNHFI NAIL, 1-5 09/14/2020 67549-BUSVLEV NAIL, 1-5 01/25/2021 46976-Jqrexsiy Plate 11/16/2020 35757-Immzlgrm Plate 09/14/2020 55394-Zjtbhzcn Plate 03/30/2020 55156-Bbdbwaop Plate 04/30/2021 12799-Wakptckh Plate 07/12/2021 00472-Xziqjcpl Plate 09/24/2021 05526-Cjwqgpic Plate 01/20/2020 91383-Cvmmgmph Plate 11/11/2019 93777-Msjputtz Plate 08/01/2022 62900-Obbpfqhg Plate 08/07/2023 57976-Vodzfzia Plate 05/27/2024 16628-Tbccdfem Plate Each Additional 31836-Izngxqur Plate Each Additional 94994-Vawbpwlb Plate Each Additional 09/2019 55809-Yfxxgycq Plate Each Additional 59079-Ikiressf Plate Each Additional 93276- Debride <25 sq cm 10/18/2021 51052- Debride <25 sq cm 09/24/2021 46902 I&D ABSCESS- SIMPLE,SINGLE 021 96248 I&D ABSCESS- SIMPLE,SINGLE 022 02680 I&D ABSCESS- SIMPLE,SINGLE 018 11773-OKGJ SKIN LESIONS, OVER 4 05/27/19 91414-GLLR SKIN LESIONS, OVER 4 03/19/20 50581-MACL SKIN LESIONS, 2 TO 4 11/13/19 43821-SPYK SKIN LESIONS, 2 TO 4 08/02/19 55004-RLXH SKIN LESIONS, 2 TO 4 08/07/19 44237-YJIV SKIN LESIONS, 2 TO 4 12/13/19 48881-EFLI SKIN LESIONS, 2 TO 4 02/25/20 21157-MMPN SKIN LESIONS, 2 TO 4 06/05/19 91374-GMMU SKIN LESIONS, 2 TO 4 09/11/19 39129-RULA SKIN LESIONS, 2 TO 4 01/09/20 61328-PQXB SKIN LESIONS, 2 TO 4 09/16/19 43808-PKGO SKIN LESIONS, 2 TO 4 03/25/20 82225-UOXM SKIN LESIONS, 2 TO 4 12/15/19 69857-OENL SKIN LESIONS, 2 TO 4 03/19/20 72717-UNEC SKIN LESIONS, 2 TO 4 01/20/20 24342-OQSU SKIN LESIONS, 2 TO 4 03/30/20 30413-SYMZ SKIN LESIONS, 2 TO 4 11/11/19 25632-PHKU SKIN LESIONS, 2 TO 4 06/24/19 52286-QFKU SKIN LESIONS, 2 TO 4 12/18/19 61071-JIPI SKIN LESIONS, 2 TO 4 02/29/20 93444-WOQI SKIN LESIONS, 2 TO 4 07/12/19 42217-MJWN SKIN LESIONS, 2 TO 4 09/25/19 18567-JWAR SKIN LESIONS, 2 TO 4 04/30/20 12750-ZNXU SKIN LESIONS, 2 TO 4 01/26/20 07519-LADI SKIN LESIONS, 2 TO 4 07/13/19 15088-SWIM SKIN LESIONS, 2 TO 4 09/15/19 77967-TGTT SKIN LESIONS, 2 TO 4 11/17/19 21 71459-Fkzr. Subungual Hematoma 2 94094-Nylk. Subungual Hematoma 9 Q0093-ZTUXBQSI DYSTROPHIC NAILS ANY # H6730-DGJXISJF DYSTROPHIC NAILS ANY # J2707-EOVTPQOL DYSTROPHIC NAILS ANY # E9487-MSCFSNFW DYSTROPHIC NAILS ANY # B8356-QMQLXVVC DYSTROPHIC NAILS ANY # V6341-DQNZLKUP DYSTROPHIC NAILS ANY # M4809-PNKPOBBB DYSTROPHIC NAILS ANY # D3011-QAAMYTDM DYSTROPHIC NAILS ANY # W7060-BFJFAIFK DYSTROPHIC NAILS ANY # D3849-GUQHWKKA DYSTROPHIC NAILS ANY # G2742-RZMTDWEA DYSTROPHIC NAILS ANY # N6084-SZFRCVJD DYSTROPHIC NAILS ANY # F3700-JTXVTJFR DYSTROPHIC NAILS ANY # N5931-BZEKOWLQ DYSTROPHIC NAILS ANY # S0014-XEQBZBVT DYSTROPHIC NAILS ANY # S2302-GIGEQBJB DYSTROPHIC NAILS ANY # A9481-WGCCQCGD DYSTROPHIC NAILS ANY # Z3925-CNDBQTPR DYSTROPHIC NAILS ANY # K9648-CRRYGKSZ DYSTROPHIC NAILS ANY # Q7352-CGVAVNYU DYSTROPHIC NAILS ANY # Z6125-EITKGGZS DYSTROPHIC NAILS ANY # M7325-LEVFAUAO DYSTROPHIC NAILS ANY # M3623-OIBGUXPT DYSTROPHIC NAILS ANY # C9947-HPVIPXKB DYSTROPHIC NAILS ANY # E4124-BDEBWPDY DYSTROPHIC NAILS ANY # L0336-XVIHYBRF DYSTROPHIC NAILS ANY # I3744-WDHDLEUL DYSTROPHIC NAILS ANY # Next Appt Details Provider Name:Shellie Drummond , 08/05/2024 08:15:00 AM, [address] [place] [address], [phone], Provider Name:Shellie Drummond , 10/07/2024 08:15:00 AM, [address] [place] [address], [phone], Insurance Providers Payer Name Payer Address Payer Phone Subscriber Number Group Number Insured Name Patient Relationship to Insured Coverage Start Date Coverage End Date [facility] [employer] Claims [address] [place] [id number] [phone] [id number] María Cano Self - patient is the insured Medical [...]
--- OUTSIDE RECORDS SUMMARY | 2024-06-07 12:25 | XMS_ITS ---
Author Organization [facility] Address [address] [place] [address] Care Team Providers Care Accounts Manager Name Role Phone Margaret Webber Primary Care Provider Unavailab Shellie Simpson Unavailable [phone] REASON FOR VISIT too soon Encounters Encounter Location Date Provider Diagnosis [address] [address] 04/26/2024 Shellie Drummond Plan Of Treatment Next Appt Details Provider Name:Shellie A Bhanu , 08/05/2024 08:15:00 AM, [address] [place] [address], [phone], Provider Name:Shellie A Bhanu , 10/07/2024 08:15:00 AM, [address] [place] [address], [phone], Progress Notes * TWANMaría MECRER LDOB:[birth year] (73 yo F)Acc No.[id number]:04/26/2024 Progress Note Patient:?María SAWYER Provider:?Shellie Drummond DPM :1950???Age:73 Y???Sex:Female D ate:04/26/2024 Address:[address] [place] [address] [address], [place] Pcp:Margaret Webber Subjective: * Chief Complaints: * ???1. Too soon. * Medical History:? Objective: * Vitals:? Assessment: Plan: * Treatment: * Images: * The named appointment provid er may or may not be the originator of this progress note, and it is not deemed complete until electronically signed by the appointment provider. Sign off status: Pending * Provider:?Shellie Drummond DPM Date:?2023 Generated for Joanie ny/Florentino/Rowan on:?06/07/2024 12:25 PM EST
--- OUTSIDE RECORDS SUMMARY | 2024-06-07 12:25 | XMS_ITS ---
Author Organization [facility] Address [address] [place] [address] Care Team Providers Care School Bus Operator Name Role Phone Po Dwight CRAIG Primary Care Provider Jordan Quiñones Unavailable [phone] Encounters Encounter Location Date Provider Diagnosis [facility] [address] [place] [address] 03/01/2024 Jordan Sanchez PLAN OF TREATMENT Next Appt Details Provider Name:Jordan Sanchez , 07/05/2024 07:30:00 AM, [address] [place] [address] , [place], [place], [phone],
--- OUTSIDE RECORDS SUMMARY | 2024-06-07 12:25 | XMS_ITS ---
Author Organization [facility] Address [address] [place] [address] Care Team Providers Care Planer Chain Offbearer Name Role Phone Margaret Webber Primary Care Provider Unavailab brittanie Shellie Drummond Unavailable [phone] REASON FOR VISIT DME checkin a wk Encounters Encounter Location Date Provider [facility] [address] [address] 05/27/2024 Shellie Bhanu Plan Of Treatment Next Appt Details Provider Name:Shellie Hoang Bhanu , 08/05/2024 08:15:00 AM, [address] [place] [address], [phone], Provider Name:Shellie Drummond , 10/07/2024 08:15:00 AM, [address] [place] [address], [phone], Progress Notes * María NANCE LDOB:[birth year] (73 yo F)Acc No.[id number]:05/27/2024 Patient:?TWANANNAJaylon LEIjennifer Lutz :1950???Age:73 Y???Sex:Female Address:[address] [place] [address] [address], [place], [address] * * Date:?
--- OUTSIDE RECORDS SUMMARY | 2024-06-07 12:26 | XMS_ITS | Data Portability ---
Author Organization [employer] [facility] [employer] Address [address] [place] [address] Care Team Providers Care Rn Transitional Name Role Phone HIM CCA OTHER Assessment Encounter Date Assessment Date Assessment LastModified by Organization Details LastModified Time 05/21/2024 05/21/2024 I provided real -time medical direction via phone for this encounter and was available for additional phone-based assistance as needed. I have reviewed and agree with the Assessment and Plan as documented by the Courtroom Clerk. Patient given the opportunity to ask questions. Our service contacted for an assessment of: Chronic BACK pain As per above, patient with hx of chronic pain. No new or worsening red S&S. No new bowel/bladder symptoms. No new gait abnl. No new neurological signs, symptoms or deficits. Per ep technologist on the scene, VSS, non-toxic. Neuro grossly intact. No CKI and not on blood thinners. Has not taken NSAID today Impression: Chronic LBP Plan: Toradol 15 mg IM times one. F/u with PCP. Red flags to be discussed as to when to seek a higher level of care. We discussed the diagnostic uncertainty of home visits and the risk associated with this. In this case, the patient and I felt this to be an acceptable and reasonable amount of risk given the benefit of avoiding an ED visit. We discussed the need to seek care urgently/emerge ntly in the setting of any new or worsening serious symptoms [email or web address] Not available 05/21/2024 21:27:07 Plan of Treatment Reminders Order Date Submit Date Provider Last Modified By Organization Details Last Modified Time Details Appointments None recorded. Lab None recorded. Referral None recorded. Procedures None recorded. Surgeries None recorded. Imaging None recorded. Medication Orders ketorolac 30 mg/mL injection solution 2023 024 [email or web address] Not available 21:28:14 Patient TargetsNo targets recorded. Patient InstructionsNo instructions recorded. Reason for Referral None Reported. Medical Equipment None Reported. Allergies Allergen ID Allergen Name Allergen Category Reaction Reaction Severity Criticality Documentation Date Start Date Code Code System Note Provider Name and Address Organization Details Recorded Time 67321 lisinopri l medicatio n Not available Not available Not available 05/21/2024 17967 RxNorm Not Available [facility] - production 4 15:29:26 73780 hydrochlo rothiazid e medicatio n Not available Not available Not available 05/21/2024 5487 RxNorm Not Available [facility] - production 4 15:29:26 23501 sulfameth oxazole medicatio n Not available Not available Not available 05/21/2024 24881 RxNorm Not Available [facility] - production 4 15:29:26 49018 sulfaceta mide medicatio n Not available Not available Not available 05/21/2024 83786 RxNorm Not Available [facility] - production 4 15:29:26 Medications Name Sig Start Date Stop Date Status Note LastModified by Organization Details LastModified Time ascorbic acid (vitamin C) 1,000 mg tablet TAKE ONE TABLET BY MOUTH EVERY DAY active Not Available Not Available No t Available acetaminophe n 325 mg tablet TAKE TWO TABLETS BY MOUTH EVERY 4 HOURS NEEDED FOR PAIN active Not Available Not Available No t Available clindamycin HCl 300 mg capsule TAKE 1 CAPSULE BY MOUTH 3 TIMES A DAY FOR 7 DAYS active Not Available Not Available N ot Available trazodone 50 mg tablet TAKE ONE TABLET BY MOUTH EVERY EVENING AT BEDTIME NEEDED FOR SLEEP active Not Available Not Available No t Available cetirizine 10 mg tablet TAKE ONE TABLET BY MOUTH EVERY DAY NEEDED FOR ALLERGIES active Not Available Not Available No t Available azithromycin 250 mg tablet TAKE 2 TABLETS ON FIRST DAY , THEN 1 TABLET DAILY FOR 4 DAYS active Not Available Not Available No t Available ibuprofen 800 mg tablet TAKE ONE TABLET BY MOUTH EVERY 8 HOURS active Not Available Not Available No t Available tizanidine 4 mg tablet TAKE ONE TABLET BY MOUTH EVERY 8 HOURS NEEDED FOR MUSCLE SPASM active Not Available Not Available No t Available fluconazole 150 mg tablet TAKE 1 TABLET BY MOUTH ONCE active Not Available Not Available N ot Available hydrocodone 5 mg-acetamino phen 325 mg tablet TAKE ONE TABLET BY MOUTH TWICE A DAY NEEDED FOR PAIN active Not Available Not Available No t Available amlodipine 5 mg tablet TAKE ONE TABLET BY MOUTH EVERY DAY active Not Available Not Available No t Available methenamine hippurate 1 gram tablet TAKE ONE TABLET BY MOUTH EVERY DAY active Not Available Not Available No t Available famotidine 20 mg tablet TAKE ONE TABLET BY MOUTH EVERY DAY active Not Available Not Available No t Available methotrexate sodium 2.5 mg tablet TAKE 8 TABLETS BY MOUTH EVERY WEEK; SPLIT DOSE INTO 4 TABLETS TWICE A DAY 10 HOURS APART. active Not Available Not Available No t Available phenazopyrid ine 100 mg tablet TAKE ONE TABLET BY MOUTH THREE TIMES A DAY NEEDED FOR PAIN FOR 5 DAYS active Not Available Not Available N ot Available nitrofuranto in macrocrystal 100 mg capsule TAKE ONE CAPSULE BY MOUTH TWICE A DAY FOR 7 DAYS. MUST ADMINISTER WITH A MEAL/FOOD. active Not Available Not Available N ot Available folic acid 1 mg tablet TAKE ONE TABLET BY MOUTH EVERY DAY active Not Available Not Available No t Available epinephrine 0.3 mg/0.3 mL injection, auto-injecto r USE DIRECTED FOR ANAPHYLAXIS THEN CALL 911 active Not Available Not Available No t Available polyethylene glycol 3350 17 gram/dose oral powder TAKE 17 GRAMS BY MOUTH EVERY DAY, DISSOLVE IN WATER BEFORE TAKING active Not Available Not Available No t Available levofloxacin 500 mg tablet TAKE ONE TABLET BY MOUTH EVERY DAY FOR 10 DAYS active Not Available Not Available No t Available estradiol 0.01% (0.1 mg/gram) vaginal cream INSERT 1 GRAM VAGINALLY EVERY FRIDAY AND FRIDAY active Not Available Not Available No t Available methylpredni solone 4 mg tablets in a dose pack TAKE DIRECTED ON PACKAGING active Not Available Not Available No t Available ipratropium bromide 42 mcg (0.06 %) nasal spray SPRAY 1 SPRAY INTO EACH NOSTRIL THREE TIMES A DAY NEEDED FOR RUNNY NOSE active Not Available Not Available N ot Available dicyclomine 10 mg capsule TAKE 1-2 CAPSULES BY MOUTH EVERY 6 HOURS NEEDED FOR ABDOMINAL CRAMPS, DISCOMFORT, BLOATING OR DIARRHEA active Not Available Not Available No t Available amoxicillin 875 mg-potassium clavulanate 125 mg tablet TAKE ONE TABLET BY MOUTH TWICE A DAY FOR 14 DAYS FOR UTI active Not Available Not Available No t Available oxycodone 5 mg tablet TAKE ONE TABLET BY MOUTH EVERY 6 HOURS NEEDED FOR PAIN active Not Available Not Available No t Available cholestyrami ne (with sugar) 4 gram oral powder MIX ONE-HALF TO 1 SCOOP INTO A GLASS OF WATER OR JUICE AND DRINK BY MOUTH TWICE DAILY NEEDED FOR DIARRHEA FOR 30 DAYS active Not Available Not Available Not Available nitrofuranto in monohydrate/ macrocrystal s 100 mg capsule TAKE ONE CAPSULE BY MOUTH TWICE A DAY FOR 14 DAYS. MUST ADMINISTER WITH A MEAL/FOOD. active Not Available Not Available N ot Available pregabalin 50 mg capsule TAKE ONE CAPSULE BY MOUTH TWICE A DAY active Not Available Not Available No t Available diclofenac 1 % topical gel APPLY TO AFFECTED AREA S) 3-4 TIMES A DAY active Not Available Not Available Not Available Vitamin D3 50 mcg (2,000 unit) capsule TAKE ONE CAPSULE BY MOUTH EVERY DAY active Not Available Not Available No t Available Myrbetriq 50 mg tablet,exten ded release TAKE 1 TABLET BY MOUTH DAILY active Not Available Not Available Not Available Vitals Date Recorded Respiratory rate Heart rate Body height Oxygen saturation Oxygen saturation in Arterial blood by Pulse oximetry Body weight Body temperature Systolic blood pressure Diastolic blood pressure Provider Name and Address Organization Details Last Updated DateTime 4 18 /min 67 /min 152.4 cm 97 % 97 % 62009.0 24 g 97.8 [degF] 132 mm[Hg] 80 mm[Hg] Not Available [facility] - production 4 21:26:15 Social History None recorded. Functional Status None recorded. Mental Status None recorded. Family History Nothing Reported. Medical History No medical history recorded. Gynecological HistoryNo gynecological history recorded. Obstetrics History GPAL:G 0 P 0 0 0 0 Past Encounters Encounter ID Performer Location Encounter Start Date Encounter Closed Date Diagnosis/Indication Diagnosis SNOMED-CT Code Diagnosis ICD10 Code Diagnosis Note [id number] Maria De Jesus Monreal MD [facility] [address] [place] [phone] 05/21/2024 21:26:13 05/25/2024 20:20:41 Left side sciatica 2100428795 94105 M54.32 Health Concerns Section Related Observation LastModified by Organization Detai ls LastModified Time None Recorded Concern Status LastModified by Organization Details LastModified Time None Recorded Advance Directives Directive None Recorded Payers Encounter Date Sequence Insurance Name Policy Number Policy Lance Covered Member ID Lance Member ID Guarantor Name 05/21/2024 1 [facility] - DOS ON OR AFTER 2022 - DUAL ELIGIBLE - RESIDENTIAL OPTIONS AND ONE CARE (MEDICARE REPLACEMENT/AD VANTAGE - HMO) María Sawyer [id number] María Sawyer Notes Date Note Type Note Provider Name and Address Organization Details Recorded Time 05/21/2024 text/html HPI: 73-year-old female with a PMH Chronic pain syndrome, bilateral OA knees, scoliosis, DM, HTN , GERD and Osteoporosis. Member reported she has Sciatica flare up, left side to coccyx area, severe pain and sharp throbbing pain with movement. Member denied other sx of cardiac or raspatory nature and reported she is hopeful to get a pain injection or something that can alleviate severe pain. Has some pain meds home and hot pack, nothing helping with pain flare up today. ...................... ...................... ...................... ...................... ...................... ...................... ......... [facility] Nurse Triage Notes (Dayami Muller - RN): Chief Complaints: Back pain PMH: Chronic Pain, Diabetes Mellitus Type 2, Gastroesophageal Reflux Disease (GERD), Hypertension, Osteoarthritis, Osteoporosis Comments: HPI reviewed- [place] ...................... ...................... ...................... ...................... ...................... ...................... ......... Courtroom Clerk Note From Cirilo Michael: Arrived apartment building to find a 73 year-old female sitting a recliner with heating pad on lower back/buttocks. Patient complaining of 12 out of 10 left sided buttock pain that radiates down through the hip and down the left leg. Any weight-bearing on that leg increases the pain. Patient states feels like her sciatica that she had in the past, last flareup was two years ago, but significantly more intense than passed. Patient denies any falls and ambulate with a walker which demonstrated significant distress/pain. Patient denies any nausea, vomiting, diarrhea, chest pain, shortness of breath, fever, chills. Patient has tenderness to lower back palpation. As well as upper left leg. Patient denies any kidney disease.Patient does not recall what she was treated with in the past, except that she did have some physical therapy for the sciatic discomfort Vital signs as noted.Contacted [facility] and discuss patient presentation, assessment, and vitals. Allergies confirmed with an addition coding pass what was already documented. Treatment decided to be 15 mg. I am Toradol. And start 2 to 3 days of ibuprofen, 400 mg Q8 hours. Patient aware of the plan and will continue to do heating . Patient is happy with the treatment and care plan. Patient will follow up with primary care on Friday if not improving. Patient advised to call back with any changes, concerns, or questions. ...................... ...................... ...................... ...................... ...................... ...................... ......... [facility] Consulted: Maria De Jesus Monreal ...................... ...................... ...................... ...................... ...................... ...................... ......... Disposition: Fulfilled Maria De Jesus Monreal MD [address] [facility],[address], [place], [address], [employer] 05/21/2024 21:28:55 OBGyn Episode No OBEpisode recorded.
--- OUTSIDE RECORDS SUMMARY | 2024-06-07 12:26 | XMS_ITS ---
Author Organization [facility] Address [address] [place] [address] Care Team Providers Care Circus Hand Name Role Phone Po Dwight CRAIG Primary Care Provider Jordan Quiñones Unavailable [phone] REASON FOR VISIT chocking on food PROBLEMS Problem Type ICD Code Onset Dates Problem Status W/U Status Risk SNOMED Code Notes Problem Benign esophageal stricture (K22.2) Active confirmed Benign esophageal stricture (622215171) Encounters Encounter Location Date Provider Diagnosis [facility] [address] [place] [address] 02/26/2024 Jordan Sacnhez Dysphagia R13.10 and Benign esophageal stricture K22.2 ASSESSMENTS Encounter Date Diagnosis Assessment Notes Treatment Notes Treatment Clinical Notes 02/26/2024 Dysphagia (ICD-10 - R13.10) 02/26/2024 Benign esophageal stricture (ICD-10 - K22.2) PLAN OF TREATMENT Future Test Test Name Order Date UPPER GI ENDOSCOPY BALLOOON DILATION OF ESOPH 02/27/2024 Next Appt Details Provider Name:Jordan Sanchez , 07/05/2024 07:30:00 AM, [address] [place] [address] , [place], [place], [phone],
--- OUTSIDE RECORDS SUMMARY | 2024-06-07 12:26 | XMS_ITS | Continuity of Care Document ---
Author Organization [facility] Address [address] [place] [address] Care Team Providers Care [employer] Hvac R Instructor Name Role Phone HIM CCA OTHER Assessment Encounter Date Assessment Date Assessment LastModified by Organization Details LastModified Time 05/21/2024 05/21/2024 I provided real -time medical direction via phone for this encounter and was available for additional phone-based assistance as needed. I have reviewed and agree with the Assessment and Plan as documented by the Physician Credentialing Specialist. Patient given the opportunity to ask questions. Our service contacted for an assessment of: Chronic BACK pain As per above, patient with hx of chronic pain. No new or worsening red S&S. No new bowel/bladder symptoms. No new gait abnl. No new neurological signs, symptoms or deficits. Per medical voucher clerk on the scene, VSS, non-toxic. Neuro grossly [...] Name and Address Organization Details Recorded Time 51221 lisinopri l medicatio n Not available Not available Not available 05/21/2024 77333 RxNorm Not Available [facility] - production 4 15:29:26 89868 hydrochlo rothiazid e medicatio n Not available Not available Not available 05/21/2024 5487 RxNorm Not Available [facility] - production 4 15:29:26 00454 sulfameth oxazole medicatio n Not available Not available Not available 05/21/2024 12896 RxNorm Not Available [facility] - production 4 15:29:26 46448 sulfaceta mide medicatio n Not available Not available Not available 05/21/2024 48650 RxNorm Not Available [facility] - production 4 [...] /min 152.4 cm 97 % 97 % 19358.0 24 g 97.8 [degF] 132 mm[Hg] 80 [...] SNOMED-CT Code Diagnosis ICD10 Code Diagnosis Note [id number] Maria De Jesus Monreal MD [facility] [address] [place] [phone] 05/21/2024 21:26:13 05/25/2024 20:20:41 Left side sciatica [id number] 74142 M54.32 Health Concerns Section Related Observation LastModified by Organization Detai ls LastModified Time None Recorded Concern Status LastModified by Organization Details LastModified Time None Recorded Payers Encounter Date Sequence Insurance Name Policy Number Policy Lance Covered Member ID Lance Member ID Guarantor Name 05/21/2024 1 [facility] - DOS ON OR AFTER 2022 - DUAL ELIGIBLE - USP OPTIONS AND ONE CARE (MEDICARE REPLACEMENT/AD VANTAGE - HMO) María Sawyer [id number] María Sawyer Notes Date Note Type Note [...] ...................... ...................... ...................... ...................... ...................... ...................... ......... Physician Credentialing Specialist Note From Cirilo Michael: Arrived apartment building [...] the sciatic discomfort Vital signs as noted.Contacted [facility] and discuss patient presentation, assessment, and vitals. [...] ...................... ...................... ...................... ...................... ...................... ...................... ......... [facility] Consulted: Maria De Jesus Monreal ...................... ...................... ...................... ...................... ...................... ...................... ......... Disposition: Fulfilled Maria De Jesus Monreal MD [address] [facility],[address], [place], [address], [employer] 05/21/2024 21:28:55 OBGyn Episode No OBEpisode recorded.
--- OUTSIDE RECORDS SUMMARY | 2024-06-07 12:26 | XMS_ITS ---
Author Organization [facility] Address [address] [place] [address] Care Team Providers Care Pump Press Operator Name Role Phone Po Dwight CRAIG Primary Care Provider Jordan Quiñones Unavailable [phone] REASON FOR VISIT dysphagia, can't swallow rice Encounters Encounter Location Date Provider Diagnosis [facility] [place] [address] [place] [phone] 03/01/2024 Jordan Sanchez PLAN OF TREATMENT Next Appt Details Provider Name:Jordan Sanchez , 07/05/2024 07:30:00 AM, [address] [place] [address] , [place], [place], [phone],
--- OUTSIDE RECORDS SUMMARY | 2024-06-07 12:26 | XMS_ITS | Patient Health Record ---
Author Organization [facility] Address [address] [place] [address] Care Team Providers Care Blanket Cutter Hand Name Role Phone Dwight Nicole MD Primary Care Provider Jordan Quiñones [phone] ALLERGIES Allergen (clinical drug ingredient) Drug/Non Drug Allergy documented on EMR Reaction Allergy Type Onset Date Status Lactose Unknown Drug Allergy Active Iron Unknown Drug Allergy Active hydrochlorothiazide Hydrochlorothiazide Unknown Drug Aller gy Active codeine Codeine Sulfate Unknown Drug Allergy A ctive vaginal creams (uncoded) Unknown Allergy Active Sulfa Unknown Drug Allergy Active sertraline Zoloft Unknown Drug Allergy Active Sertraline HCl Unknown Drug Allergy Ac tive lisinopril Lisinopril Unknown Drug Allergy Activ e RESULTS Component Value Reference Range Notes FL barium swallow with air ( Not yet reviewed by provider) Interpretation: Performing Lab: Notes/Report: [address] [address] Fluoroscopy Report Signed Patient: María Sawyer MR#: [id number] : 1950 Acct:[id number] Age/Sex: 73 / F ADM Date: 01/14/24 Loc: HO.XRAY Attending Dr: Jordan Sanchez MD Ordering Physician: Jordan Sanchez MD Date of Service: 01/14/24 Procedure(s): FL barium swallow with air Accession Number(s): [id number] cc: Dwight Nicole MD; Jordan Sanchez MD EXAMINATION: XR FLUOROSCOPY UPPER GI WITH AIR CLINICAL INFORMATION: Dysphagia, history of endoscopic dilations. History of Clemente-en-Y gastric bypass COMPARISON: Upper GI 2020, 2018, 2015 TECHNIQUE: Fluoroscopic air contrast upper GI examination [...] Yaniv Tim MD 01/16/2024 12:26 PM EDT Workstation: [id number] Dictated By: Tyshawn Jones Signed By: <Electronically signed by Tyshawn Jones in OV> 01/16/24 1226 <Electronically signed by Yaniv Tim MD in OV> 04/28/24 1154 DD/ 0800 TD/TT: 01/14/24 0810 Resident Medical Officer: Pathology (Not yet reviewed by provider) Interpretation: Performing Lab:[facility], [address] [place] [phone] Notes/Report: REASON FOR REFERRAL No Information MEDICATIONS [...] y mouth once daily Orally Active Ipratropium [place] 0.02 % 2.5 mL as nee ded [...] bowel syndrome with diarrhea (K58.0) Active confirmed [id number] Problem Dysphagia, pharyngoesophageal phase (R13.14) Active confirmed Pharyngeal dysphagia ([id number] 05) Problem Dysphagia (R13.10) Active confirmed Dys phagia (78750220) Problem Gastroesophageal reflux disease without esophagitis (K21.9) Active confirmed 697056146 Problem Esophageal stricture (K22.2) Active confirmed Esophageal stricture (37600278) Problem Pharyngoesophageal dysphagia (R13.14) Active confirmed 90260291 Problem Abnormal barium swallow (R93.3) Active confirmed Barium swallow abnormal (307832992) Problem Esophageal dysphagia (R13.10) Active confirmed 80335925 Problem Benign esophageal stricture (K22.2) Active confirmed Benign esophageal stricture (426684585) VITAL SIGNS Temperature 97.5 degrees Fahrenheit 01/23/2024 Blood pressure diastolic 00 mm Hg 01/23/2024 Height 61.25 in 01/23/2024 Blood pressure systolic 000 mm Hg 01/23/2024 Weight 143 lbs 01/23/2024 BMI 26.80 kg/m2 01/23/2024 Encounters Encounter Location Date Provider Diagnosis [facility] [place] [address] [place] [id number] 02/23/2024 Jordan Sanchez Esophageal stricture K22.2 ; Hiatal hernia K44.9 ; Dysphagia R13.[address] scan, esophagus R93.3 [facility] [place] [address] [place] [id number] 03/01/2024 Jordan Sanchez [facility] [address] [place] [phone] 01/23/2024 Jordan Sanchez Pharyngoesophageal dysphagia R13.14 ; Irritable bowel syndrome with diarrhea K58.0 ; Abnormal barium swallow R93.3 and Dysphagia R13.10 [facility] [address] [place] [phone] 01/05/2024 Jordan Sanchez Dysphagia, pharyngoesophageal phase R13.14 and Esophageal stricture K22.2 [facility] [address] [place] [phone] 01/28/2024 Jordan Sanchez [facility] [address] [place] [phone] 02/24/2024 Jordan Sanchez [facility] [address] [place] [phone] 02/26/2024 Jordan Sanchez Dysphagia R13.10 and Benign esophageal stricture K22.2 [facility] [address] [place] [address] 03/01/2024 Jordan Sanchez [facility] [address] [place] [phone] 01/23/2024 Jordan Sanchez ASSESSMENTS Encounter Date Diagnosis [...] Provider Name:Jordan Sanchez , 07/05/2024 07:30:00 AM, [address] [facility] , [place], [place], [phone], Insurance Providers Payer Name Payer Address Payer Phone Subscriber Number Group Number Insured Name Patient Relationship to Insured Coverage Start Date Coverage End Date [facility] [address] Attn Claims Tang ELL[place] [id number] MARÍA MOHAN Self - patient is the insured MEDICAID OF [facility] [address] [place] [address] [id number] MARÍA MOHAN - patient is the insured [...] her last colonoscopy being in 2008 Denies AL,CVA,renal disease Intermittent diarrhea, felt to be probably related to IBS-previous trials of cholestyramine were not helpful, nor did she like the taste--biopsies were negative for celiac disease Anxiety Asthma Arthritis Hospitalized in 10/2012 for c hest pain-neg. AL-had an ETT that was reportedly negative Upper [...]
== END 2024-06-07 11:02 | disposition home or self-care (01) ==
LOC: HO.HBS 10:43
PROVIDERS: PCP Internal Medicine; Visit Provider Physician Assistant Surgical
DX: E66.3 Overweight (principal); Z68.27 Body mass index [BMI] 27.0-27.9, adult; Z98.84 Bariatric surgery status
CPT/HCPCS: 98016

== ENCOUNTER 2024-06-11 13:35 | Outpatient (AMB) | payer OTHER, SELFPAY ==
[2024-06-11 14:14] VITALS: BMI 27.8
--- NOTE | 2024-06-11 14:14 | A.SPINEOV_ITS ---
Vital Signs 06/11/24 14:14 Height 5 ft 1 in Weight 147 lb BMI 27.8 Intake Visit Reasons: lumbar radiculopathy Intake Note: Ms. Sawyer is here today c/o sciatica that radiates down to both legs Medicaid Eligibility Specialist Required: No Allergies hydrochlorothiazide [HYDROCHLOROTHIAZIDE] Allergy (Severe, Verified 06/11/24 1 4:15) ANGIOEDEMA lisinopril [LISINOPRIL] Allergy (Severe, Verified 06/11/24 14:15) ANGIOEDEMA Sulfa (Sulfonamide Antibiotics) [SULFA (SULFONAMIDE ANTIBIOTICS)] Allergy (Severe, Verified 06/11/24 14:15) FACIAL SWELLING iron [IRON] Allergy (Intermediate, Verified 06/11/24 14:15) NAUSEA lactose [LACTOSE] Allergy (Intermediate, Verified 06/11/24 14:15) DIARRHEA sertraline [From ZOLOFT] Allergy (Intermediate, Verified 06/11/24 14:15) INSOMNIA codeine Allergy (Unknown, Verified 06/11/24 14:15) Unknown lobster Allergy (Uncoded 04/14/24 08:20) Anaphylaxis Physical Exam Vital Signs: BMI result Body Mass Index 27.8 Assessment & Plan Assessment & Plan (1) Spondylolisthesis of lumbar region: Code(s): M43.16 - Spondylolisthesis, lumbar region Category: Medical (2) Osteoporosis: Comment: DEXA 10/2022 L-spine T-score-1.4 Left femur neck-2.7 Left femur total-2.2 History of wrist fracture Reclast 06/2023 Code(s): M81.0 - Age-related osteoporosis without current pathological fracture Category: Medical Qualifiers: Osteoporosis type: age-related Presence of current pathological fracture: without current pathological fracture Qualified Code(s): M81.0 - Age- related osteoporosis without current pathological fracture Plan Dear colleague Thank you for referring María Sawyer to the office today with a chief complaint of low back pain radiating down her buttocks. HPI: This 73-year-old female comes to the office with chief complaint of radiating pain from the back down into her buttocks with walking and standing. Sitting improves the symptoms. Leaning over her walker alleviates his symptoms. Pain has been going on for years and has been progressive. She denies weakness or numbness. She also has osteoporosis. Physical Exam: Pleasant female. She walks in a flexed position. There is pain in the lower spine with changing of positions from sitting to standing. No clear neurological deficits for motor or sensation. Radiological Studies: MRI done at [facility] shows a grade 1-2 L4-5 spondylolisthesis and associated spinal stenosis . A standing x-ray shows osteo parotid bone and endplate deformities of at least L4 and L5. Impression/Plan: This patient is suffering from neurogenic claudication due to an L4-5 spondylolisthesis. Normally, this would be easily fixed with a minimally invasive L4-5 lumbar fusion. However, her bone quality does not allow this and there are no nonfusion options. She could consider an evaluation for a spinal cord stimulator but is not interested. Unfortunately, I am not able to help this patient. Thank you for allowing me to participate in your patients care. total time spent was 50 minutes in counseling ,coordination of plan, personal review of imaging, surgical decision making and subsequent plan Ahmet Kennedy MD, PhD [facility] Trained Neurosurgeon Director, [facility] Coding Level of Care Code New Pt Level 4 (30088) Diagnoses Spondylolisthesis of lumbar region M43.16 Age-related osteoporosis without current pathological fracture M81.0 Osteoporosis type: age-related Presence of current pathological fracture: without current pathological fracture
--- OUTSIDE RECORDS SUMMARY | 2024-06-11 16:09 | XMS_ITS | Continuity of Care Document ---
Author Organization [employer] Address [address] [place] [address] Care Team Providers Care Prospecting Observer Name Role Phone HIM CCA OTHER Assessment Encounter Date Assessment Date Assessment LastModified by Organization Details LastModified Time 05/21/2024 05/21/2024 I provided real -time medical direction via phone for this encounter and was available for additional phone-based assistance as needed. I have reviewed and agree with the Assessment and Plan as documented by the Chief Security Officer. Patient given the opportunity to ask questions. Our service contacted for an assessment of: Chronic BACK pain As per above, patient with hx of chronic pain. No new or worsening red S&S. No new bowel/bladder symptoms. No new gait abnl. No new neurological signs, symptoms or deficits. Per marketing admin on the scene, VSS, non-toxic. Neuro grossly [...] Name and Address Organization Details Recorded Time 08840 lisinopri l medicatio n Not available Not available Not available 05/21/2024 46119 RxNorm Not Available [facility] - production 4 15:29:26 30675 hydrochlo rothiazid e medicatio n Not available Not available Not available 05/21/2024 5487 RxNorm Not Available [facility] - production 4 15:29:26 54343 sulfameth oxazole medicatio n Not available Not available Not available 05/21/2024 55239 RxNorm Not Available [facility] - production 4 15:29:26 14152 sulfaceta mide medicatio n Not available Not available Not available 05/21/2024 28456 RxNorm Not Available [facility] - production 4 [...] /min 152.4 cm 97 % 97 % 20137.0 24 g 97.8 [degF] 132 mm[Hg] 80 [...] SNOMED-CT Code Diagnosis ICD10 Code Diagnosis Note [id number] Maria De Jesus Monreal MD [facility] - [facility] [address] [place] [id number] 05/21/2024 21:26:13 05/25/2024 20:20:41 Left side sciatica [id number] 90171 M54.32 Health Concerns Section Related Observation LastModified by Organization Detai ls LastModified Time None Recorded Concern Status LastModified by Organization Details LastModified Time None Recorded Payers Encounter Date Sequence Insurance Name Policy Number Policy Lance Covered Member ID Lance Member ID Guarantor Name 05/21/2024 1 [facility] - DOS ON OR AFTER 2022 - DUAL ELIGIBLE - LONGTERM OPTIONS AND ONE CARE (MEDICARE REPLACEMENT/AD VANTAGE - HMO) María Sawyer [id number] María Sawyer Notes Date Note Type Note [...] ...................... ...................... ...................... ...................... ...................... ...................... ......... Chief Security Officer Note From Cirilo Michael: Arrived apartment building [...] the sciatic discomfort Vital signs as noted.Contacted [facility] and discuss patient presentation, assessment, and vitals. [...] ...................... ...................... ...................... ...................... ...................... ...................... ......... [facility] Consulted: Maria De Jesus Monreal ...................... ...................... ...................... ...................... ...................... ...................... ......... Disposition: Fulfilled Maria De Jesus Monreal MD [address] [facility],[address], [place], [address], [employer] 05/21/2024 21:28:55 OBGyn Episode No OBEpisode recorded.
== END 2024-06-11 15:06 | disposition home or self-care (01) ==
PROVIDERS: PCP Internal Medicine; Referring Provider Internal Medicine; Visit Provider Neurological Surgery
DX: M43.16 Spondylolisthesis, lumbar region (principal); M81.0 Age-related osteoporosis without current pathological fracture
CPT/HCPCS: 99204

== ENCOUNTER → 2024-06-11 13:35 | Outpatient (BNVA) | payer OTHER, SELFPAY | PROVIDERS: PCP Internal Medicine; Referring Provider Internal Medicine; Visit Provider Neurological Surgery | DX: M43.16 Spondylolisthesis, lumbar region (principal); M81.0 Age-related osteoporosis without current pathological fracture | CPT/HCPCS: 99202 ==

== ENCOUNTER 2024-07-05 06:16 | Day surgery (SDC) | payer OTHER, SELFPAY ==
[2024-07-01 14:00] VITALS: BMI 26.8
--- NOTE | 2024-07-02 10:27 | HO.ANESPROP2 ---
Documented by User: Nia Davis NP 07/02/24 10:28 HPI - Anesthesia Eval Consult details Narrative: 73yo F for Upper Endoscopy with Balloon Dilitation s/p same 01/2024 with [facility] Active Problems Active Problems: All Active Problems Cognitive and behavioral changes (Acute) Fibromyalgia, primary (Acute) Lumbar spondylosis (Acute) Bilateral knee pain (Acute) Spondylolisthesis of lumbar region (Acute) Scoliosis of thoracolumbar spine (Acute) Lumbar degenerative disc disease (Acute) Lumbar radiculopathy (Acute) Chronic pain syndrome (Acute) Acute bilateral low back pain (Acute) SOB (shortness of breath) (Acute) Trigger finger, right middle finger (Acute) Dysphagia (Acute) Urinary frequency (Acute) Cystitis (Acute) 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) Osteoporosis (Acute) Left foot pain (Acute) Rheumatoid arthritis (Acute) Recurrent urinary tract infection (Acute) Bilateral renal stones (Acute) Insomnia (Acute) Seroma of digestive system after non-digestive system procedure (Acute) Bile salt-induced diarrhea (Acute) Peripheral vascular disease (Acute) Osteoarthritis of knees, bilateral (Acute) Bladder problem (Acute) Vitamin A deficiency (Acute) Vitamin D deficiency (Acute) Panniculitis (Acute) Alkaline phosphatase elevation (Acute) Impacted cerumen of both ears (Acute) Urinary incontinence (Acute) Annual physical exam (Acute) Abdominal pain (Acute) Abdominal pain (Acute) Intestinal malabsorption following gastrectomy (Acute) Dysuria (Acute) Fracture of proximal phalanx of right middle finger (Acute) Closed displaced fracture of neck of right fifth metacarpal bone (Acute) Distal radius fracture, right (Acute) Allergic rhinitis (Acute) Overweight (Acute) Nephrolithiasis (Acute) RSD (reflex sympathetic dystrophy) (Acute) Hx of gastric bypass (Acute) Degenerative disc disease, cervical (Acute) Spondylosis of cervical spine (Acute) GERD (gastroesophageal reflux disease) (Acute) Hypercholesterolemia (Acute) Hypertension (Acute) Osteoarthritis of knees, bilateral (Acute) COPD (chronic obstructive pulmonary disease) (Acute) Past Medical History Medical History Overactive bladder Bowel obstruction Pleurisy Hypokalemia Diabetes Anxiety IBS (irritable bowel syndrome) Hyperlipidemia Duodenal ulcer Hiatal hernia Lesion of bladder Nephrolithiasis UTI (urinary tract infection) Protein deficiency Ventral hernia Binge-eating disorder, moderate Overweight BMI 25.0-25.9,adult Degenerative disc disease, cervical Spondylosis of cervical spine Obesity (BMI 30-39.9) Vaginal prolapse Peptic ulcer disease Esophageal stricture Vitamin D deficiency Peripheral neuropathy GERD (gastroesophageal reflux disease) Hypercholesterolemia RSD (reflex sympathetic dystrophy) Peripheral vascular disease Anemia Small bowel obstruction Osteopenia History of esophageal dilatation Tubular adenoma of colon Obstructive sleep apnea Hypertension Hemorrhoids Deviated septum Impaired glucose tolerance History of duodenal ulcer Osteoarthritis of knees, bilateral COPD (chronic obstructive pulmonary disease) Family History Family History Father No problems noted. Mother No problems noted. Daughter Psoriatic arthritis Family history of problems with anesthesia: No Surgical History Surgical History History of cystocele repair Hx of cystoscopy Hx of lumpectomy H/O colonoscopy History of esophagogastroduodenoscopy (EGD) Cystocele History of repair of hiatal hernia Hx of gastric bypass History of arthroscopy of left knee History of umbilical hernia repair History of tubal ligation History of hemorrhoidectomy History of nasal surgery History of tonsillectomy History of cholecystectomy History of Problems with Anesthesia: No Social History Social History Housing: Apartment Are you a primary home care rn to a significant other at home: No Do you presently have visiting nurse or other home services: No Alcohol intake: former Comment: pressure Patient Tobacco Use Status: Former Tobacco user Tobacco use type: Cigarette e-Cigarette/Vaping Use: Never Used Second Hand Smoke Exposure: No service: No Current occupational status: retired Gender identity: Female Cognitive needs: No Hearing needs: No Vision needs: Yes (glasses) Meds Allergies Allergy/AdvReac Type Severity Reaction Status Date / Time hydrochlorothiazide Allergy Severe ANGIOEDEMA Verified 07/05/24 06:45 [HYDROCHLOROTHIAZIDE] lisinopril [LISINOPRIL] Allergy Severe ANGIOEDEMA Verified 07/05/24 06:45 Sulfa (Sulfonamide Allergy Severe FACIAL Verified 07/05/24 06:45 Antibiotics) SWELLING [SULFA (SULFONAMIDE ANTIBIOTICS)] iron [IRON] Allergy Intermediate NAUSEA Verified 07/05/24 06:45 lactose [LACTOSE] Allergy Intermediate DIARRHEA Verified 07/05/24 06:45 sertraline [From ZOLOFT] Allergy Intermediate INSOMNIA Verified 07/05/24 06:45 codeine Allergy Unknown Unknown Verified 07/05/24 06:45 lobster Allergy Severe Anaphylaxis Uncoded 07/05/24 06:45 Home Medications ?Medication ?Instructions ?Recorded ?Confirmed ?Last Taken ?Type calcium 315 mg (as 1 tab PO DAILY 08/09/22 07/01/24 Unknown History citrate)-vitamin D3 6.25 mcg (250 unit) tablet dicyclomine 10 mg capsule 10 - 20 mg PO Q6H PRN cramps 04/04/23 07/01/24 Unknown History epinephrine 0.3 mg/0.3 mL 0.3 mg IM ONCE PRN Anaphylaxis 04/04/23 07/01/24 Unknown History injection, auto-injector famotidine 20 mg tablet 20 mg PO BEDTIME 04/04/23 07/01/24 02/23/24 History acetaminophen 500 mg tablet 500 mg PO Q6H PRN Pain 02/19/24 07/01/24 Unknown History cetirizine 10 mg tablet 10 mg PO DAILY allergies 02/19/24 07/01/24 Unknown History d-mannose 1 ea PO DAILY 02/19/24 07/01/24 Unknown History diphenhydramine 25 2 tab PO BEDTIME PRN Insomnia 02/19/24 07/01/24 Unknown History mg-acetaminophen 500 mg tablet (Tylenol PM Extra Strength) fluticasone propionate 50 1 spray intranasal DAILY 02/19/24 07/01/24 02/23/24 History mcg/actuation nasal spray,suspension ipratropium bromide 0.02 % 2.5 ml inhalation Q8-10H PRN 02/19/24 07/01/24 Unknown History solution for inhalation Shortness Of Breath Or Wheezing loperamide 2 mg tablet (Imodium 2 mg PO QID PRN Diarrhea 02/19/24 07/01/24 Unknown History A-D) losartan 100 mg tablet 100 mg PO DIRECTED 02/19/24 07/01/24 Unknown History ondansetron 4 mg disintegrating 4 mg PO Q6H PRN Nausea And Vomiting 02/19/24 07/01/24 Unknown History tablet simethicone 125 mg tablet 125 mg PO QIDACHS PRN Abdominal 02/19/24 07/01/24 Unknown History Discomfort turmeric root extract 500 mg 500 mg PO DAILY 02/19/24 07/01/24 01/22/24 History capsule vitamins A,C,Z-spdi-ebuvge 2,148 2 tab PO BID 02/19/24 07/01/24 Unknown History mcg-113 mg-45 mg-17.4 mg tablet (PreserVision AREDS) celecoxib 200 mg capsule 200 mg PO DAILY 07/02/24 07/02/24 Unknown History Exam Height,Weight and Vital Signs: Height 5 ft 1.25 in Weight 64.864 kg Pertinent Lab Results Pertinent Lab Results: Laboratory Tests 05/17/24 05/20/24 06:20 06:35 WBC 5.0 Hgb 11.2 L Hct 36.1 L Plt Count 171 Sodium 140 Potassium 4.2 Chloride 109 H Carbon Dioxide 23 BUN 13 Creatinine 0.75 Assessment and Plan Assessment Anesthesia Assessment: Chart Reviewed Final Anesthetic Review Family History of Problems with Anesthesia: No History of Problems with Anesthesia: No Documented by User: Rachell Cardozo MD 07/05/24 08:41 [facility] Past Medical History Medical History Overactive bladder Bowel obstruction Pleurisy Hypokalemia Diabetes Anxiety IBS (irritable bowel syndrome) Hyperlipidemia Duodenal ulcer Hiatal hernia Lesion of bladder Nephrolithiasis UTI (urinary tract infection) Protein deficiency Ventral hernia Binge-eating disorder, moderate Overweight BMI 25.0-25.9,adult Degenerative disc disease, cervical Spondylosis of cervical spine Obesity (BMI 30-39.9) Vaginal prolapse Peptic ulcer disease Esophageal stricture Vitamin D deficiency Peripheral neuropathy GERD (gastroesophageal reflux disease) Hypercholesterolemia RSD (reflex sympathetic dystrophy) Peripheral vascular disease Anemia Small bowel obstruction Osteopenia History of esophageal dilatation Tubular adenoma of colon Obstructive sleep apnea Hypertension Hemorrhoids Deviated septum Impaired glucose tolerance History of duodenal ulcer Osteoarthritis of knees, bilateral COPD (chronic obstructive pulmonary disease) Family History Family History Father No problems noted. Mother No problems noted. Daughter Psoriatic arthritis Family history of problems with anesthesia: No Surgical History Surgical History History of cystocele repair Hx of cystoscopy Hx of lumpectomy H/O colonoscopy History of esophagogastroduodenoscopy (EGD) Cystocele History of repair of hiatal hernia Hx of gastric bypass History of arthroscopy of left knee History of umbilical hernia repair History of tubal ligation History of hemorrhoidectomy History of nasal surgery History of tonsillectomy History of cholecystectomy History of Problems with Anesthesia: No Social History Social History Housing: Apartment Are you a primary home care rn to a significant other at home: No Do you presently have visiting nurse or other home services: No Alcohol intake: former Comment: pressure Patient Tobacco Use Status: Former Tobacco user Tobacco use type: Cigarette e-Cigarette/Vaping Use: Never Used Second Hand Smoke Exposure: No service: No Current occupational status: retired Gender identity: Female Cognitive needs: No Hearing needs: No Vision needs: Yes (glasses) Meds Allergies Allergy/AdvReac Type Severity Reaction Status Date / Time hydrochlorothiazide Allergy Severe ANGIOEDEMA Verified 07/05/24 06:45 [HYDROCHLOROTHIAZIDE] lisinopril [LISINOPRIL] Allergy Severe ANGIOEDEMA Verified 07/05/24 06:45 Sulfa (Sulfonamide Allergy Severe FACIAL Verified 07/05/24 06:45 Antibiotics) SWELLING [SULFA (SULFONAMIDE ANTIBIOTICS)] iron [IRON] Allergy Intermediate NAUSEA Verified 07/05/24 06:45 lactose [LACTOSE] Allergy Intermediate DIARRHEA Verified 07/05/24 06:45 sertraline [From ZOLOFT] Allergy Intermediate INSOMNIA Verified 07/05/24 06:45 codeine Allergy Unknown Unknown Verified 07/05/24 06:45 lobster Allergy Severe Anaphylaxis Uncoded 07/05/24 06:45 Home Medications ?Medication ?Instructions ?Recorded ?Confirmed ?Last Taken ?Type calcium 315 mg (as 1 tab PO DAILY 08/09/22 07/01/24 Unknown History citrate)-vitamin D3 6.25 mcg (250 unit) tablet dicyclomine 10 mg capsule 10 - 20 mg PO Q6H PRN cramps 04/04/23 07/01/24 Unknown History epinephrine 0.3 mg/0.3 mL 0.3 mg IM ONCE PRN Anaphylaxis 04/04/23 07/01/24 Unknown History injection, auto-injector famotidine 20 mg tablet 20 mg PO BEDTIME 04/04/23 07/01/24 02/23/24 History acetaminophen 500 mg tablet 500 mg PO Q6H PRN Pain 02/19/24 07/01/24 Unknown History cetirizine 10 mg tablet 10 mg PO DAILY allergies 02/19/24 07/01/24 Unknown History d-mannose 1 ea PO DAILY 02/19/24 07/01/24 Unknown History diphenhydramine 25 2 tab PO BEDTIME PRN Insomnia 02/19/24 07/01/24 Unknown History mg-acetaminophen 500 mg tablet (Tylenol PM Extra Strength) fluticasone propionate 50 1 spray intranasal DAILY 02/19/24 07/01/24 02/23/24 History mcg/actuation nasal spray,suspension ipratropium bromide 0.02 % 2.5 ml inhalation Q8-10H PRN 02/19/24 07/01/24 Unknown History solution for inhalation Shortness Of Breath Or Wheezing loperamide 2 mg tablet (Imodium 2 mg PO QID PRN Diarrhea 02/19/24 07/01/24 Unknown History A-D) losartan 100 mg tablet 100 mg PO DIRECTED 02/19/24 07/01/24 Unknown History ondansetron 4 mg disintegrating 4 mg PO Q6H PRN Nausea And Vomiting 02/19/24 07/01/24 Unknown History tablet simethicone 125 mg tablet 125 mg PO QIDACHS PRN Abdominal 02/19/24 07/01/24 Unknown History Discomfort turmeric root extract 500 mg 500 mg PO DAILY 02/19/24 07/01/24 01/22/24 History capsule vitamins A,C,F-boan-wvxnao 2,148 2 tab PO BID 02/19/24 07/01/24 Unknown History mcg-113 mg-45 mg-17.4 mg tablet (PreserVision AREDS) celecoxib 200 mg capsule 200 mg PO DAILY 07/02/24 07/02/24 Unknown History Exam Height,Weight and Vital Signs: Height 5 ft 1.25 in Weight 64.864 kg Vital Signs Temp Pulse Resp BP Pulse Ox O2 Del Method 97.9 F 70 18 123/68 95 Room Air 07/05/24 06:56 07/05/24 06:56 07/05/24 06:56 07/05/24 06:56 07/05/24 06:56 07/05/24 06:56 Pertinent Lab Results Pertinent Lab Results: Laboratory Tests 05/17/24 05/20/24 06:20 06:35 WBC 5.0 Hgb 11.2 L Hct 36.1 L Plt Count 171 Sodium 140 Potassium 4.2 Chloride 109 H Carbon Dioxide 23 BUN 13 Creatinine 0.75 Airway Mallampati Class: II TM Dist: >3cm Neck ROM: Full Denture: Upper and Lower Loose/Missing/Broken Teeth: Yes Heart: RRR Lungs: CTAB Assessment and Plan Assessment Anesthesia Assessment: Anesthesia Plan Discussed and Chart Reviewed Final Anesthetic Review Family History of Problems with Anesthesia: No History of Problems with Anesthesia: No NPO: Yes ASA Class: III Final Preanesthetic Review: No Changes in Pt Med Stat, Meds/Allgs Chart Reviewed, Consent Obtained/Reviewed and Anes Risks/Benef Reviewed Patient Risk: Intermediate Procedure Risk: Low Assessment/Block/Sedation in SS: Assess/Block/Sedation-SS Anesthetic Plan Anesthetic Plan: TIVA Disposition: Standard PACU
[2024-07-05 06:41] VITALS: BMI 27.7
[2024-07-05] MEDS: Lactated Ringers 1,000 ML 100 ML IVCONT (06:50)
[2024-07-05 06:56] VITALS: BP 123/68; PULSE 70; RESP 18; TEMP 36.6; O2SAT 95
[2024-07-05 08:20] VITALS: BP 97/72; PULSE 68; RESP 15; TEMP 36.2; O2SAT 93
--- NOTE | 2024-07-05 08:26 | PM.OP ---
Brief Operative Note Date of Service: 07/05/24 Pre-op diagnosis: Dysphagia Post-op diagnosis: other (Strictures of UES and EG Junction) Procedure: EGD with Balloon dilation of UES with a 12mm to 13.5mm to a 15mm pyloric balloon, and balloon dilation of EG Junction with an 18mm to 20mm esophageal balloon, and biopsies Surgeon: Jordan Sanchez MD Anesthesia: MAC Was an Drug Abuse Worker used for this Procedure?: No Estimated blood loss (mL): 2.0 Pathology: other (A. Esophagus 20-25cm) Condition: stable Disposition: PACU
[2024-07-05 08:39] VITALS: BP 144/85; PULSE 61; RESP 17; TEMP 36.2; O2SAT 95
--- NOTE | 2024-07-05 09:09 | OP_ITS ---
DATE OF SERVICE: 07/05/2024 SURGEON: Jordan Sanchez MD INDICATIONS: The patient presents for evaluation of dysphagia. Full consent has been obtained from her for this, including risks of bleeding and perforation. PREOPERATIVE DIAGNOSIS: Dysphagia. POSTOPERATIVE DIAGNOSIS: PROCEDURE PERFORMED: Upper endoscopy with balloon dilation of upper esophageal sphincter, balloon dilation of gastroesophageal junction, and biopsies. ESTIMATED BLOOD LOSS: COMPLICATIONS: ANESTHESIA: Medication use; monitored anesthesia care. ASSISTANTS: SPECIMENS: POSTOPERATIVE DIAGNOSES: Dysphagia, upper esophageal sphincter stricture, gastroesophageal junction stricture, rule out lymphocytic esophagitis. DESCRIPTION OF PROCEDURE: The Olympus videogastroscope was passed in the posterior oropharynx under direct vision. The upper esophageal sphincter was insufflated with air and a fibrotic stricture was visualized, but without any ulceration or mass. The scope did pass this, but there was definitely a hesitancy and some popping sensation noted. The scope was advanced to the distal esophagus. The gastroesophageal junction was noted at 35 cm. With insufflation of air, I was able to visualize another fibrotic appearing stricture, but without mass or ulceration. There was no esophagitis. The scope easily passed this. She has a small gastric remnant with the anastomosis from her previous gastric bypass noted at approximately 38-40 cm. There was some retained suture material, but the anastomosis was widely patent. The small bowel was cannulated and appeared normal. The scope was withdrawn back into the gastric remnant. This was inspected both in the forward viewing and retroflexed positions and appeared normal without any sign of mass or ulceration. The scope was withdrawn back into the esophagus. Given her symptomatology, I did dilate the upper esophageal sphincter stricture with a pyloric balloon from 12 mm to 13.5 mm to 15 mm at the recommended pressure for between 30 and 60 seconds each. Post dilation, there was definitely disruption of the stricture noted and allowed much easier passage of the scope without any hesitation whatsoever. I then proceeded to dilate the stricture in the lower esophagus just above the gastroesophageal junction. I dilated this with a [employer] incremental balloon from 18 mm to 20 mm at the recommended pressure for 60 seconds each. Post dilation, there was disruption of that stricture as well. Again, there was no sign of any esophagitis or Baumann esophagus. I did obtain biopsies in the very proximal esophagus to reassess for lymphocytic esophagitis as had been described on the previous biopsies from last year. The scope was then withdrawn from the patient. She tolerated the procedure well and was returned to the recovery area in stable condition. IMPRESSION: 1. Upper esophageal sphincter stricture and lower esophageal sphincter stricture, status post balloon dilations. 2. Rule out lymphocytic esophagitis. PLAN: The results of the biopsies will be checked. At this point, we shall see how she does from a clinical standpoint in regard to her swallowing. She will be followed up in the office as needed as well. She was advised not to use any aspirin and NSAIDs for at least 1 week. If she does have some improvement, but her swallowing issues return and the biopsies do show lymphocytic esophagitis, then we may want to treat that with a medication such as budesonide. MD BRISA Ojeda/TANYA / [id number] MTDD
== END 2024-07-05 08:51 | disposition home or self-care (01) ==
PROVIDERS: PCP Internal Medicine; Visit Provider Internal Medicine
PROC: (CPT 43249; principal; 2024-07-05 07:30)
DX: K22.2 Esophageal obstruction (principal); K22.89 Other specified disease of esophagus; K63.89 Other specified diseases of intestine; R13.14 Dysphagia, pharyngoesophageal phase; E11.9 Type 2 diabetes mellitus without complications; I10 Essential (primary) hypertension; E78.00 Pure hypercholesterolemia, unspecified; J44.9 Chronic obstructive pulmonary disease, unspecified; G89.4 Chronic pain syndrome; Z98.84 Bariatric surgery status; Z87.891 Personal history of nicotine dependence; Z79.899 Other long term (current) drug therapy; Z79.631 Long term (current) use of antimetabolite agent
CPT/HCPCS: 43249; 43239; 88305; 88313; C1726; J2250; J2704

== ENCOUNTER 2024-07-09 08:45 | Outpatient (AMB) | payer OTHER, SELFPAY ==
--- OUTSIDE RECORDS SUMMARY | 2024-07-09 08:59 | XMS_ITS ---
Author Name Kong JV, MS. Hawa Harkins Address [address] [place] [address] Phone [phone] [facility] Care Team Providers Care E Commerce Marketing Analyst Name Role Phone Hawa Triana Unavailable [phone] Unavailable Unavailable Unavailable Unavailable Unavailable Unavailable Vanstee, Bernie Unavailable [phone] Po, Lorenver Unavailable [phone] Reason for Referral Not Available Allergies, adverse reactions, alerts Allergen Type Reaction Severity Status Onset Date Sulfa Antibiotics Allergy to substance (disorder) Unknown Active N/A Codeine Sulfate Allergy to substance (disorder) Unknown Active N/A Lactose Allergy to substance (disorder) Unknown Active N/A Hydrochlorothiazide Allergy to substance (disorder) Angioedema Unknown Active N/A Lisinopril Allergy to substance (disorder) Angioedema Unknown Active N/A Sertraline HCl Allergy to substance (disorder) Insomnia Unknown Active N/A Iron Supplement Allergy to substance (disorder) Stomach issues Unknown Active N/A History of medication use Medication Class Instructions Start Date End Date Cetirizine 10 mg Tab TAKE 1 TABLET BY MO UTH ONCE DAILY NEEDED 2021-02-12 No Data Available Dicyclomine 10 mg Cap TAKE 1-2 CAPSULES BY MOUTH EVERY 6 HOURS NEEDED FOR ABDOMINAL CRAMPS, DISCOMFORT, BLOATING OR DIARRHEA 2020-11-23 No Data Available Meloxicam 15 mg Tab TAKE ONE TABLET BY M OUTH EVERY DAY 2021-08-19 No Data Available Myrbetriq 50 mg Tab ER 24hr TAKE 1 TABLE T BY MOUTH DAILY 2021-03-22 No Data Available tiZANidine 4 mg Tab TAKE 1 TABLET BY JASMIN TH EVERY 8 HOURS NEEDED FOR MUSCLE SPASM 2021-07-10 No Data Available Ipratropium [place] 0.06 % Solution USE 1 SPRAY IN EACH NOSTRIL THREE TIMES DAILY NEEDED FOR RUNNY NOSE 2021-09-03 No Data Available Diclofenac Sodium 1 % Gel No Data Available 2021-04-18 No Data Available EPINEPHrine 0.3 mg/0.3ML Solution Auto-injector INJECT 1 PEN IN THE MUSCLE DIRECTED FOR ANAPHYLAXIS 2021-09-03 No Data Available Vitamin A 3 mg (60155 UT) Cap TAKE TWO ( 2) CAPSULES BY MOUTH ONCE DAILY 2021-02-26 No Data Available Famotidine 20 mg Tab TAKE ONE TABLET BY MOUTH EVERY DAY 2021-10-31 No Data Available VITAMIN D3 2000UNIT CAPSULES TAKE 1 CAPS ULE BY MOUTH EVERY DAY 2021-11-01 No Data Available Ciprofloxacin 250 mg Tab TAKE 1 TABLET B Y MOUTH TWICE DAILY FOR 5 DAYS 2021-11-08 No Data Available Ondansetron 4 mg Tab Disintegrating DISSOLVE ONE TABLET BY MOUTH EVERY 8 HOURS NEEDED FOR NAUSEA AND VOMITING 2021-11-23 No Data Available traZODone 50 mg Tab TAKE ONE TABLET BY M OUTH AT BEDTIME NEEDED FOR SLEEP 2022-01-10 No Data Available Gabapentin 300 mg Cap 2 capsule 3x per day 2022-01-21 No Data Available tiZANidine 4 mg Tab 1 tablet up to three times daily 2022-03-07 No Data Available Voltaren 1 % Gel Apply topically 3-4 times daily 2022-03-07 No Data Available Macrobid 100 mg Cap Take 1 tablet PO twi ce daily for 5 days. 2022-04-24 No Data Available Pyridium 100 mg Tab 1 tablets orally 3 t imes per day for 2 days after meals 2022-04-24 No Data Available Pyridium 100 mg Tab 1 tablets orally 3 t imes per day for 2 days after meals 2022-04-24 No Data Available Macrobid 100 mg Cap Take 1 tablet PO twi ce daily for 5 days. 2022-04-24 No Data Available Cephalexin 500 mg Cap 1 capsule orally e very 12 hours for 5 days 2022-04-30 No Data Available Tessalon Perles 100 mg Cap 1 capsule ora lly 3 times per day as needed 2022-05-08 No Data Available Paxlovid (300/100) 20 x 150 mg & 10 x 100 mg Tab Therapy Pack 3 tablets by mouth three times daily for five days 2022-05-08 No Data Available Lidocaine Viscous, Benadryl, Maalox, Nystatin (Magic Mouthwash) 15ml QID daily for 14 days 2022-05-08 No Data Avail able D3 SUPER STRENGTH 50 MCG CAPS TAKE ONE C APSULE BY MOUTH EVERY DAY 2022-03-06 No Data Available VITAMIN A 3 MG(64461 UT) CAPS TAKE ONE C APSULE BY MOUTH EVERY DAY 2022-03-06 No Data Available IPRATROPIUM BROMIDE 0.06% SOLN SPRAY 1 SPRAY INTO EACH NOSTRIL THREE TIMES A DAY NEEDED FOR RUNNY NOSE 2022-04-15 No Data Available Estradiol 0.1 mg/GM Crm USE 1 GRAM VAGIN ALLY EVERY NIGHT FOR 2 WEEKS, THEN TWICE PER WEEK 2022-05-24 No Data Available levoFLOXacin 250 mg Tab TAKE ONE TABLET BY MOUTH EVERY DAY FOR 5 DAYS 2022-05-31 No Data Available Problem List Problem Status Onset Date Resolved Date Irritable bowel syndrome with diarrhea Active 16-03-13 N/A Type 2 diabetes, controlled, with neuropathy Active 2022-03-07 N/A Insomnia Active 2022-03-07 N/A GERD (gastroesophageal reflux disease) Active 16-03-13 N/A Vitamin A deficiency Active 2022-03-07 N/A Vitamin D deficiency Active 2022-03-07 N/A Overactive bladder Active 2022-03-07 N/A Reflex sympathetic dystrophy with osteoarthritis Activ e 2022-03-07 N/A Status post gastric bypass for obesity Active 16-03-13 N/A Encounters Encounters Type Facility Date of Service Diagnosis/Co mplaint Pain Assessment - NO pain present (1126F) [facility] [place] Pain Assessment - NO pain present (1126F) [facility] [place] Pain Assessment - NO pain present (1126F[place] [facility] [place] Pain Assessment - NO pain present (1126F) [facility] [place] Pain Assessment - NO pain present (1126F) [facility] [place] Pain Assessment - NO pain present (1126F) [facility] [place] Pain Assessment - NO pain present (1126F) [facility] [place]20[place] Pain Assessment - NO pain present (1126F) [facility] [place]20[place] Pain Assessment - NO pain present (1126F) [facility] ([place] 03/07/2022 Irritable bowel syndrome wit h diarrheaType 2 diabetes mellitus with diabetic neuropathy, unspecifiedInsomnia, unspecifiedGastro-esophageal reflux disease without esophagitisVitamin a deficiency, unspecifiedVitamin D deficiency, unspecifiedComplex regional pain syndrome I, unspecifiedUnspecified osteoarthritis, unspecified siteOveractive bladderBariatric surgery status No Data Available [facility] [place] 04/[place]/2022 Urinary tract infection, sit e not specified Vital Signs Date of Collection Vitals 2022-03-07 08:29:34 Height - 154.94 cmWe ight - 61.69 kgBody Mass Index (BMI) - 25.7 kg/m2BP Diastolic - 82.0 mm[Hg]BP Systolic - 135.0 mm[Hg]Respiratory Rate - 52.0 /min Social History Social History Social History Observation Description Effec tive Time Current Smoking Status Former smoker 2024-06-26 4 Sex Female History of Procedures Procedures Service Procedure code Service date Servicing provider Phone# Pain Assessment - NO pain present (1126F) 1126F 2022-03-07 No Data Available No Data A vailable Medication List Documented (1159F) 1159F 2022-03-07 No Data Available No Data Freda ilable Medication Review by prescribing provider or pharmacist documented (1160F) 1160F 2022-03-07 No Data Available No Data Freda ilable Functional Status Assessed (1170F) 1170F 2022-03-07 No Data Available No Data Avail able Advance Care Directive Advance care planning discussion documented in the medical record (1158F) 1158F 2022-03-07 No Data Available No Data Availa ble BMI obtained (3008F) 3008F 2022-03-07 No Data Availab le No Data Available SBP 130-139 (3075F) 3075F 2022-03-07 No Data Availabl e No Data Available DBP 80-89 (3079F) 3079F 2022-03-07 No Data Available No Data Available New patient, 30-44min 1 stable chronic or 2 minor; add modifier 95 for video, modifier 93 for phone 94223 2022-03-07 No Data Available No Data Available No Data Available 64987 2022-04-24 No Data Available No Data Available Functional Status Functional Category Effective Dates Uses Walker or Cane - has a w/c but does n't have to use 2022-03-07 uses shower chair 2022-03-07 ENGINEER SECOND ASSISTANT for cleaning and cooking 2022-03-07 Mental Status Status Date Forgetful 2022-03-07 Assessments Date of Service Assessments 2022-03-07 08:29:34 Irritable bowel synd ana with diarrheaType 2 diabetes, controlled, with neuropathyInsomniaGERD (gastroesophageal reflux disease)Vitamin A deficiencyVitamin D deficiencyReflex sympathetic dystrophy with osteoarthritisOveractive bladderStatus post gastric bypass for obesity 2022-04-24 04:55:08 Follow up plan for viktor maxwell symptoms:Urinary tract infection Plan of Care Date of Service Plans 2022-03-07 08:29:34 Pain Assessment - NO pain documented (1126F)Medication Review by prescribing provider or pharmacist documented (1160F)Medication List Documented (1159F)Functional Status Assessed (1170F)Advance Care Directive Advance care planning discussion documented in the medical record (1158F)BMI obtained (3008F)SBP 130-139 (3075F)DBP 80-89 (3079F)Televideo new patient, 30-44min 1 stable chronic or 2 minor; add modifier 95Continue to see PCP. Follow-up with [facility] as needed for any acute or disease education needs that may arise.Lost over 100lb, diabetes is controlled without medication. Member does have Neuropathy of feet/legsTakes Gabapentines Dr. BeltranTakes TrazodoneFollows: Dr. [place] dailyTakes Gustavo and TizanidineFollows: Dr. Dwight Stevenson lost over 100lb in 3 years from surgery.Continue taking medications as orderedSee providers as recommendedNotify provider of any changes in overall conditionYou feel sick or illYou notice a change in your behaviorsYou have questions or concernsMonitoring your sugar and fat intakeExercising as tolerated 2022-04-24 04:55:08 Televideo 20-29min; 1 stable chronic or 2 minor; add modifier 95Continue to see PCP. Follow-up with [facility] as needed for any acute or disease education needs that may arise 16/12. Goals Date Goal 2022-03-07 Remember to 2022-03-07 Call me if 2022-03-07 Keep it up
--- OUTSIDE RECORDS SUMMARY | 2024-07-09 08:59 | XMS_ITS | Data Portability ---
Author Organization [facility] Address [address] [place] [address] Care Team Providers Care Flight Crew Time Clerk Name Role Phone HIM [facility] OTHER Assessment Encounter Date Assessment Date Assessment LastModified by Organization Details LastModified Time 05/21/2024 05/21/2024 I provided real -time medical direction via phone for this encounter and was available for additional phone-based assistance as needed. I have reviewed and agree with the Assessment and Plan as documented by the Centerless Grinder Operator. Patient given the opportunity to ask questions. Our service contacted for an assessment of: Chronic BACK pain As per above, patient with hx of chronic pain. No new or worsening red S&S. No new bowel/bladder symptoms. No new gait abnl. No new neurological signs, symptoms or deficits. Per web content developer on the scene, VSS, non-toxic. Neuro grossly [...] Name and Address Organization Details Recorded Time 18439 lisinopri l medicatio n Not available Not available Not available 05/21/2024 30484 RxNorm Not Available [facility] - production 4 15:29:26 80924 hydrochlo rothiazid e medicatio n Not available Not available Not available 05/21/2024 5487 RxNorm Not Available [facility] - production 4 15:29:26 38704 sulfameth oxazole medicatio n Not available Not available Not available 05/21/2024 68442 RxNorm Not Available [facility] - production 4 15:29:26 10243 sulfaceta mide medicatio n Not available Not available Not available 05/21/2024 18877 RxNorm Not Available [facility] - production 4 [...] /min 152.4 cm 97 % 97 % 45693.0 24 g 97.8 [degF] 132 mm[Hg] 80 [...] SNOMED-CT Code Diagnosis ICD10 Code Diagnosis Note [id number] Maria De Jesus Monreal MD [facility] [address] [place] [phone] [id number] 05/21/2024 21:26:13 05/25/2024 20:20:41 Left side sciatica [id number] 44699 M54.32 Health Concerns Section Related Observation LastModified by Organization Detai ls LastModified Time None Recorded Concern Status LastModified by Organization Details LastModified Time None Recorded Advance Directives Directive None Recorded Payers Encounter Date Sequence Insurance Name Policy Number Policy Lance Covered Member ID Lance Member ID Guarantor Name 05/21/2024 1 [facility] - DOS ON OR AFTER 2022 - DUAL ELIGIBLE - SNF OPTIONS AND ONE CARE (MEDICARE REPLACEMENT/AD VANTAGE - HMO) María Sawyer [id number] María Sawyer Notes Date Note Type Note [...] ...................... ...................... ...................... ...................... ...................... ...................... ......... Centerless Grinder Operator Note From Cirilo Michael: Arrived apartment building [...] the sciatic discomfort Vital signs as noted.Contacted [facility] and discuss patient presentation, assessment, and vitals. [...] ...................... ...................... ...................... ...................... ...................... ...................... ......... [facility] Consulted: Maria De Jesus Monreal ...................... ...................... ...................... ...................... ...................... ...................... ......... Disposition: Fulfilled Maria De Jesus Monreal MD [address] [facility], [place], [address], [employer] - [employer] HOPPER 05/21/2024 21:28:55 OBGyn Episode No OBEpisode recorded.
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
== END 2024-07-09 10:26 | disposition home or self-care (01) ==
PROVIDERS: PCP Internal Medicine; Visit Provider Counselor Mental Health
DX: F43.25 Adjustment disorder with mixed disturbance of emotions and conduct (principal); R63.2 Polyphagia
CPT/HCPCS: 90791

== ENCOUNTER → 2024-07-19 07:56 | Outpatient (BNVA) | payer OTHER, SELFPAY | PROVIDERS: PCP Internal Medicine; Visit Provider Physician Assistant Surgical ==

== ENCOUNTER → 2024-08-09 07:53 | Outpatient (BNVA) | payer OTHER, SELFPAY | PROVIDERS: PCP Internal Medicine; Visit Provider Physician Assistant Surgical ==

== ENCOUNTER → 2024-08-12 09:07 | Outpatient (AMB) | payer OTHER, SELFPAY ==
--- NOTE | 2024-08-12 09:00 | MHC.WMTHER ---
Intake Intake Visit Reasons: TV PO LSG 02/10/19 Allergies hydrochlorothiazide [HYDROCHLOROTHIAZIDE] Allergy (Severe, Verified 07/19/24 08:41) ANGIOEDEMA lisinopril [LISINOPRIL] Allergy (Severe, Verified 07/19/24 08:41) ANGIOEDEMA Sulfa (Sulfonamide Antibiotics) [SULFA (SULFONAMIDE ANTIBIOTICS)] Allergy (Severe, Verified 07/19/24 08:41) FACIAL SWELLING iron [IRON] Allergy (Intermediate, Verified 07/19/24 08:41) NAUSEA lactose [LACTOSE] Allergy (Intermediate, Verified 07/19/24 08:41) DIARRHEA sertraline [From ZOLOFT] Allergy (Intermediate, Verified 07/19/24 08:41) INSOMNIA codeine Allergy (Unknown, Verified 07/19/24 08:41) Unknown lobster Allergy (Severe, Uncoded 07/19/24 08:41) Anaphylaxis [facility] Medical History Overactive bladder Bowel obstruction Pleurisy Hypokalemia Diabetes Anxiety IBS (irritable bowel syndrome) Hyperlipidemia Duodenal ulcer Hiatal hernia Lesion of bladder Nephrolithiasis UTI (urinary tract infection) Protein deficiency Ventral hernia Binge-eating disorder, moderate Overweight BMI 25.0-25.9,adult Degenerative disc disease, cervical Spondylosis of cervical spine Obesity (BMI 30-39.9) Vaginal prolapse Peptic ulcer disease Esophageal stricture Vitamin D deficiency Peripheral neuropathy GERD (gastroesophageal reflux disease) Hypercholesterolemia RSD (reflex sympathetic dystrophy) Peripheral vascular disease Anemia Small bowel obstruction Osteopenia History of esophageal dilatation Tubular adenoma of colon Obstructive sleep apnea Hypertension Hemorrhoids Deviated septum Impaired glucose tolerance History of duodenal ulcer Osteoarthritis of knees, bilateral COPD (chronic obstructive pulmonary disease) Surgical History History of cystocele repair Hx of cystoscopy Hx of lumpectomy H/O colonoscopy History of esophagogastroduodenoscopy (EGD) Cystocele History of repair of hiatal hernia Hx of gastric bypass History of arthroscopy of left knee History of umbilical hernia repair History of tubal ligation History of hemorrhoidectomy History of nasal surgery History of tonsillectomy History of cholecystectomy Family History Father No problems noted. Mother No problems noted. Daughter Psoriatic arthritis Social History Housing: Apartment Are you a primary pharmacy care coordinator to a significant other at home: No Do you presently have visiting nurse or other home services: No Alcohol intake: former Comment: pressure Patient Tobacco Use Status: Former Tobacco user Tobacco use type: Cigarette e-Cigarette/Vaping Use: Never Used Second Hand Smoke Exposure: No service: No Current occupational status: retired Gender identity: Female Cognitive needs: No Hearing needs: No Vision needs: Yes (glasses) Female Reproductive History Menstrual Age of Menarche: 10 Behavioral Health Assessment Weight Management Therapy Therapy Notes Details Subjective: The patient reports that she has been attending the office for weekly weigh-ins every Friday. While she has not lost weight, she has been able to maintain her current weight. However, the patient expresses feeling isolated and reports that the weather has been negatively affecting her motivation to be active. Additionally, she is dealing with knee pain, which has hindered her ability to walk or engage in more physical activity due to discomfort. Objective: The patient presented for a follow-up visit via phone. Discussed her functioning, challenges, and progress since the last session. Reflected on non-scale victories and explored any changes in her routine and life since her previous therapist left. We processed how her activity levels and overall functioning have changed and brainstormed small, achievable goals for incorporating more daily movement, structuring her days, and planning her meals. Utilized Cognitive Behavioral Therapy (CBT) techniques to identify and challenge negative thought patterns that may be impacting her motivation and activity levels. Explored cognitive reframing to address her feelings of isolation and helplessness, while emphasizing self-compassion and realistic goal-setting. Assessment/Response: Mental Status: The patient was alert, oriented, and engaged throughout the session. She demonstrated insight into her struggles and expressed motivation to improve. Risk: No safety concerns were identified during this session. The patient denied any thoughts of self-harm or suicidal ideation. The patient was open to the interventions provided and responded well to the discussion and problem-solving around her current barriers. Food/Weight/Diet Expectations of change PT's Target weight: 130-135 lbs. 08/09/24: 149 lbs Assessment & Plan Assessment & Plan (1) Adjustment disorder with mixed disturbance of emotions and conduct: Code(s): F43.25 - Adjustment disorder with mixed disturbance of emotions and conduct (2) Eating disorder, unspecified: Code(s): F50.9 - Eating disorder, unspecified Plan Encourage the patient to set small, manageable physical activity goals that do not aggravate her knee pain, such as short stretching sessions or seated exercises and to start exploring about her hobbies or activities the patient might enjoy within her physical limitations, focusing on increasing engagement and overall well-being. Next tanesha: 09/20/2024 at 9am, in person. Telehealth Telehealth Telehealth Platform: [employer] Location of provider rendering services: other Location of patient: address on file Patient Identification confirmed using: Name, : Yes Telehealth method: voice only Patient verbally consented to treatment: Yes Patient verbally consented to billing insurance company: Yes Patient informed of any privacy concerns related to visit: Yes Minutes spent on Phone/Video with Pt.: 45 Coding Level of Care Code Established Pt Tele Psytx 45 mins (14991) Patient Type Established Diagnoses Adjustment disorder with mixed disturbance of emotions and conduct F43.25 Eating disorder, unspecified F50.9 Time Spent (min) 45
--- OUTSIDE RECORDS SUMMARY | 2024-08-12 09:40 | XMS_ITS | Patient Health Record ---
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 Name Role Phone Margaret Webber Primary Care Provider Unavailab Shellie Simpson Unavailable [phone] Allergies Allergen (clinical drug ingredient) Drug/Non Drug [...] Duration) Notes Start Date End Date Status Custom Orthotics as directed 08/05/2024 Active amLODIPine Besylate 5 MG 1 tablet Orally Once a day Active Meloxicam 15 MG 1 tablet Orally Once a day for 30 day(s) Not-Taking Gabapentin Not-Takin g Vitamin A Not-Taking EpiPen Active Losartan Potassium 50 MG Orally Not-Taking Dicyclomine HCl 10 MG 2 capsules Orally Three times a day for 30 day(s) Active amLODIPine Besylate 5 MG 1 tablet Orally Once a day Not-Taking Cetirizine HCl Activ e Fluticasone-Salmeterol 250-50 MCG/DOSE 1 puff Inhalation Twice a day Not-Taking Calcium Citrate + D3 Active Atorvastatin Calcium 20 MG 1 tablet Orally Once a day Not-Taking Myrbetriq Active Methenamine Hippurate 1 GM 1 tablet Orally Twice a day Active Lamisil Not-Taking Lyrica 75 MG 1 capsule Orally Onc e a day Active Atropine Sulfate 1 tab Oral No t-Taking Estradiol Active Albuterol Sulfate 108 (90 Base) MCG/ACT 2 puffs as needed Inhalation every 6 hrs Not-Takin g Omeprazole 40 MG 1 capsule Orally Onc e a day Active Vitamin D Active Advair Diskus 250-50 MCG/DOSE 1 puff Inhalation Twice a day Not-Taking Vitamin C 1000 MG 1 tablet Orally Once a day Active traMADol HCl 50 MG 1 tablet as needed Orally every 6 hrs Not-Taking Vitamin B 12 Not-Dexter ing Folic Acid Not-Takin g Ammonium Lactate 12 % 1 application Exte rnally to affected areas of dry skin to feet except for between the toes Twice a day for 30 days Active Lyrica 50 MG Orally Twice a day Not-Taking Extra Depth Orthopedic Shoes (1 Pair) with Customized Heat Molded Multidensity Innersoles (3 Pair) as directed Dx: NIDDM/Polyneuropathy (E11.42), Hammertoe Foot Deformity (M20.41,M20.42), Preulcerative Skin Lesion(s) (L85.1 06/05/2023 Active Methotrexate Not-Dexter ing tiZANidine HCl 4 MG 1 tablet as needed Orally Three times a day Active Metoprolol Succinate ER 50 MG 1 tablet Orally Once a day Not-Taking traZODone HCl 100 MG 1 tablet at bedtime Orally Once a day Active Incruse Ellipta 62.5 MCG/INH 1 puff Inhalation Once a day Not-Taking Voltaren 1 % Transdermal Not-T aking Methotrexate Sodium 2.5 MG as directed Orally Not-Takin g Folic Acid Not-Takin g Famotidine Not-Takin g CeleBREX 200 MG 1 capsule with food Orally Once a day Active Immunizations Vaccine Route Administration Date Status Comme [...] Problem Acquired hammer toe of right foot (8490013625795687) Other hammer toe(s) (acquired), right foot (M20.41) Active confirmed Problem Acquired hammer toe of left foot (0884092128259068) Other hammer toe(s) (acquired), left foot (M20.42) Active confirmed Problem Ulcer of toe (857990680) Non-pressure chronic ulcer of other part of right foot limited to breakdown of skin (L97.511) Active confirmed Problem Polyneuropathy due to type 2 diabetes mellitus (356418818) Type 2 diabetes mellitus with diabetic polyneuropathy (E11.42) Active confirmed Problem 4585065 Arthritis (M19.90) Active confirmed Problem 646839201138777 Complex regional pain syndrome type 1 of both lower extremities (G90.523) Active confirmed Problem 17335380 Venous insufficiency (I87.2) Active confirmed Problem 299857725 Rheumatoid arthritis with positive rheumatoid factor, involving unspecified site (M05.9) Active confirmed Problem Acquired deformity of right foot (84673718902319046 ) PlantarFlexion of metatarsal of right foot (M21.6X1) Active confirmed Problem Acquired deformity of left foot (14114856651858936 ) PlantarFlexion of metatarsal of left foot (M21.6X2) Active confirmed Vital Signs Blood pressure diastolic 80 mm Hg 08/05/2024 Height 5ft1in in 08/05/2024 Blood pressure systolic 130 mm Hg 08/05/2024 Weight 148 lbs 08/05/2024 BMI 27.96 kg/m2 08/05/2024 Procedures Procedure Date Ordered Date Performed Result Body Sit e 55516-BSXX SKIN LESIONS, 2 TO 4 11/13/2023 N/A S1036-BEVUYRWK DYSTROPHIC NAILS ANY # 11/13/2023 N/A 86297-YRYD SKIN LESIONS, OVER 4 03/19/2024 N/A Y9809-JJBCVFYP DYSTROPHIC NAILS ANY # 03/19/2024 N/A 52627-Estsuzlb Plate 05/27/2024 N/A 33153-FQSZ SKIN LESIONS, OVER 4 05/27/2024 N/A U4155-FRFLNSMF DYSTROPHIC NAILS ANY # 05/27/2024 N/A 53886-VDYQ SKIN LESIONS, OVER 4 08/05/2024 N/A Y1767-WPQPABPR DYSTROPHIC NAILS ANY # 08/05/2024 N/A Encounters Encounter Location Date Provider Diagnosis [address] [address] 11/13/2023 Shellie Black Type 2 diabetes mellitus with diabetic polyneuropathy E11.[address] [address] 03/19/2024 Shellie Black Type 2 diabetes mellitus with diabetic polyneuropathy E11.[address] [address] 05/27/2024 Shellie Black Pain in right foot M79.671 ; Metatarsalgia, right foot M77.41 ; Type 2 diabetes mellitus with diabetic polyneuropathy E11.42 ; Ingrown nail L60.0 ; Pain in right ankle and joints of right foot M25.571 ; Bursitis of intermetatarsal bursa of right foot M77.51 and Xerosis of skin L85.[address] [address] 08/05/2024 Shellie Black Pain in right foot M79.671 ; Metatarsalgia, right foot M77.41 ; Type 2 diabetes mellitus with diabetic polyneuropathy E11.42 ; Pain in right ankle and joints of right foot M25.571 ; Bursitis of intermetatarsal bursa of right foot M77.51 ; Xerosis of skin L85.3 and Rheumatoid arthritis with positive rheumatoid factor, involving unspecified site M05.[address] [address] 05/27/2024 Shellie Black Assessments Encounter Date Diagnosis (ICD Code) Assessment Notes Treatment Notes Treatment Clinical Notes Section Notes 11/13/2023 Type 2 diabetes mellitus with diabetic polyneuropathy (ICD-10 - E11.42) 03/19/2024 Type 2 diabetes mellitus with diabetic polyneuropathy (ICD-10 - E11.42) 05/27/2024 Metatarsalgia, right foot (ICD-10 - M77.41) 05/27/2024 Pain in right foot (ICD-10 - M79.671) 08/05/2024 Metatarsalgia, right foot (ICD-10 - M77.41) 08/05/2024 Pain in right foot (ICD-10 - M79.671) 08/05/2024 Type 2 diabetes mellitus with diabetic polyneuropathy (ICD-10 - E11.42) 05/27/2024 Type 2 diabetes mellitus with diabetic polyneuropathy (ICD-10 - E11.42) 05/27/2024 Ingrown nail (ICD-10 - L60.0) 08/05/2024 Pain in right ankle and joints of right foot (ICD-10 - M25.571) 08/05/2024 Bursitis of intermetatarsal bursa of right foot (ICD-10 - M77.51) 05/27/2024 Pain in right ankle and joints of right foot (ICD-10 - M25.571) 05/27/2024 Bursitis of intermetatarsal bursa of right foot (ICD-10 - M77.51) 08/05/2024 Xerosis of skin (ICD-10 - L85.3) 08/05/2024 Rheumatoid arthritis with positive rheumatoid factor, involving unspecified site (ICD-10 - M05.9) 05/27/2024 Xerosis of skin (ICD-10 - L85.3) Plan Of Treatment Pending Test Test Name Order Date 54998-EPBGYHY NAIL, -09/15/2017 73045-CGOJAZY NAIL, 05-3003/19/2018 35602-DOSOPHG NAIL, 05-3001/08/2018 89332-OKIGPUQ NAIL, 05-3009/10/2018 73203-ERKJHEH NAIL, 05-3012/14/2018 15068-ZUPCJRZ NAIL, 05-3003/25/2019 39388-XQBTXOA NAIL, 05-3006/24/2019 41567-WJVIRII NAIL, 05-3011/11/2019 11159-VETTPSE NAIL, 05-3001/20/2020 59638-FSZRKXV NAIL, 1-5 03/30/2020 70341-HCXXMQI NAIL, 1-5 07/13/2020 11812-NICUZPH NAIL, 1-5 09/14/2020 82403-MHKTJRP NAIL, 1-5 01/25/2021 63803-Drmxalfj Plate 11/16/2020 25028-Mykdgkip Plate 09/14/2020 25277-Hgzgznoy Plate 03/30/2020 13667-Ofylttdw Plate 04/30/2021 47963-Rupspnps Plate 07/12/2021 88381-Rvlxjnns Plate 09/24/2021 65895-Ueppwydf Plate 01/20/2020 99037-Lrjrhpoa Plate 11/11/2019 44172-Syimnhnz Plate 08/01/2022 75465-Igfabouz Plate 08/07/2023 75201-Ncbqtspx Plate 05/27/2024 21694-Vdswsquk Plate Each Additional 94375-Sdlbbynx Plate Each Additional 83676-Bzododwt Plate Each Additional 09/2019 78209-Dzqjcwko Plate Each Additional 94490-Tkgqjghw Plate Each Additional 19448- Debride <25 sq cm 10/18/2021 54214- Debride <25 sq cm 09/24/2021 83447 I&D ABSCESS- SIMPLE,SINGLE 021 68023 I&D ABSCESS- SIMPLE,SINGLE 022 28088 I&D ABSCESS- SIMPLE,SINGLE 018 69079-TJNK SKIN LESIONS, OVER 4 05/27/19 02390-LGXZ SKIN LESIONS, OVER 4 08/06/19 89143-AMJK SKIN LESIONS, OVER 4 03/19/20 24 64897-ZXWO SKIN LESIONS, 2 TO 4 11/13/19 28967-OUGS SKIN LESIONS, 2 TO 4 08/02/19 22034-SPEH SKIN LESIONS, 2 TO 4 08/07/19 20068-POSI SKIN LESIONS, 2 TO 4 12/13/19 60554-CCWN SKIN LESIONS, 2 TO 4 02/25/20 58675-UYCC SKIN LESIONS, 2 TO 4 06/05/19 85893-ULEC SKIN LESIONS, 2 TO 4 04/18/20 19 48655-PFFL SKIN LESIONS, 2 TO 4 01/09/20 18 90155-TBQD SKIN LESIONS, 2 TO 4 09/16/19 18 67899-GGKH SKIN LESIONS, 2 TO 4 03/25/20 19 47048-MOIN SKIN LESIONS, 2 TO 4 12/15/19 19 47230-CDKA SKIN LESIONS, 2 TO 4 03/19/20 18 78711-VMBE SKIN LESIONS, 2 TO 4 01/20/20 52460-DNOY SKIN LESIONS, 2 TO 4 03/30/20 28860-CNED SKIN LESIONS, 2 TO 4 11/11/19 59755-TDLX SKIN LESIONS, 2 TO 4 06/24/19 72540-SUYN SKIN LESIONS, 2 TO 4 12/18/19 77159-UOAK SKIN LESIONS, 2 TO 4 02/29/20 96491-TAAJ SKIN LESIONS, 2 TO 4 07/12/19 32647-QHYI SKIN LESIONS, 2 TO 4 09/25/19 10838-LOJY SKIN LESIONS, 2 TO 4 04/30/20 00824-PCIX SKIN LESIONS, 2 TO 4 01/26/20 89040-QRWF SKIN LESIONS, 2 TO 4 07/13/19 31571-EHAS SKIN LESIONS, 2 TO 4 09/15/19 75061-NNTZ SKIN LESIONS, 2 TO 4 11/17/19 21 02734-Ulpe. Subungual Hematoma 2 10167-Vpqz. Subungual Hematoma 9 J0661-GBWCDMJY DYSTROPHIC NAILS ANY # H4505-QAXDCQSH DYSTROPHIC NAILS ANY # O0578-YUYDDQOU DYSTROPHIC NAILS ANY # E3605-RRHGDYGQ DYSTROPHIC NAILS ANY # N2462-ZUFSKBNV DYSTROPHIC NAILS ANY # V9677-WTPUFDAR DYSTROPHIC NAILS ANY # I6678-JAIPBITI DYSTROPHIC NAILS ANY # K0838-GLOQINRH DYSTROPHIC NAILS ANY # Y5079-EJSOCOMV DYSTROPHIC NAILS ANY # E5316-DTDXMBYG DYSTROPHIC NAILS ANY # R6704-ZXSGIZVD DYSTROPHIC NAILS ANY # O9177-SPEMASGH DYSTROPHIC NAILS ANY # A4169-LGZDKEJC DYSTROPHIC NAILS ANY # W9457-KFGLQSCC DYSTROPHIC NAILS ANY # Z6656-OXECYUES DYSTROPHIC NAILS ANY # S8903-QDFOXGWO DYSTROPHIC NAILS ANY # Z8157-VUNJCOAN DYSTROPHIC NAILS ANY # Q2620-JGVLNJGD DYSTROPHIC NAILS ANY # Y0641-SKBVUXAY DYSTROPHIC NAILS ANY # G8472-RCWPCYQX DYSTROPHIC NAILS ANY # Y4198-QMQARQKG DYSTROPHIC NAILS ANY # Q5670-BAWPVYTE DYSTROPHIC NAILS ANY # E0383-UMLPAWQN DYSTROPHIC NAILS ANY # L2286-IBDWCOGO DYSTROPHIC NAILS ANY # Q0305-MEHWKJQG DYSTROPHIC NAILS ANY # I3770-EOPFAEBG DYSTROPHIC NAILS ANY # A0229-KXVOJENJ DYSTROPHIC NAILS ANY # W1544-PNGOGXXM DYSTROPHIC NAILS ANY # Next Appt Details Provider Name:Shellie Drummond , 10/14/2024 11:15:00 AM, [address] [place] [address], [phone], Provider Name:Shellie Drummond , 12/16/2024 08:00:00 AM, [address] [place] [address], [phone], Insurance Providers Payer Name Payer Address Payer Phone Subscriber Number Group Number Insured Name Patient Relationship to Insured Coverage Start Date Coverage End Date [facility] [employer] Claims [address] [place] [id number] María Cano Self - patient is the [...]
--- OUTSIDE RECORDS SUMMARY | 2024-08-12 09:41 | XMS_ITS ---
Author Organization [facility] Address [address] [place] [address] Care Team Providers Care Malt Roaster Name Role Phone Dwight Nicole MD Primary Care Provider Jordan Quiñones [phone] REASON FOR VISIT dysphagia, can't swallow rice Encounters Encounter Location Date Provider Diagnosis [facility] [address] [place], [place] [id number] 03/01/2024 Jordan Sanchez Plan Of Treatment No Information Progress Notes * HEATH NANCEDOB: [birth year] (73 yo F)Acc No.[id number]:03/01/2024 EGD/MAC Patient:?HEATH NANCE Provider:?Jordan Sanchez MD :1950???Age:73 Y???Sex:Female D ate:03/01/2024 Address:[address] [place], [place] [id number] Pcp:Dwight Nicole MD Subjective: * Chief Complaints: * ???1. Dysphagia, can't swall ow rice. * Medical History:? Objective: * Vitals:? Assessment: Plan: * Treatment: * * The named appointment provid er may or may not be the originator of this progress note, and it is not deemed complete until electronically signed by the appointment provider. Sign off status: Pending * Provider:?Jordan Sanchez MD Date:? 024 Generated for Printi ng/Faxing/eTransmitting on:?08/12/2024 09:40 AM EDT
--- OUTSIDE RECORDS SUMMARY | 2024-08-12 09:41 | XMS_ITS ---
Author Organization [facility] [place] Address [address] [facility] [place] [address] Care Team Providers Care Vamp Creaser Name Role Phone Margaret Webber Primary Care Provider Unavailab Shellie Simpson Unavailable [phone] Allergies Allergen (clinical drug ingredient) Drug/Non Drug [...] Active REASON FOR VISIT At Risk Footcare, Foot pain, Skin problem(s) Medications Medication SIG (Take, Route, Frequency, Duration) Notes Start Date End Date Status Lamisil Not-Taking Atropine Sulfate 1 tab Oral No t-Taking Albuterol Sulfate 108 (90 Base) MCG/ACT 2 puffs as needed Inhalation every 6 hrs Not-Takin g Losartan Potassium 50 MG Orally Not-Taking amLODIPine Besylate 5 MG 1 tablet Orally Once a day Not-Taking Meloxicam 15 MG 1 tablet Orally Once a day for 30 day(s) Not-Taking Gabapentin Not-Takin g Vitamin A Not-Taking Fluticasone-Salmeterol 250-50 MCG/DOSE 1 puff Inhalation Twice a day Not-Taking Atorvastatin Calcium 20 MG 1 tablet Orally Once a day Not-Taking Voltaren 1 % Transdermal Not-T aking Methotrexate Sodium 2.5 MG as directed Orally Not-Takin g Folic Acid Not-Takin g Famotidine Not-Takin g Ammonium Lactate 12 % 1 application Exte rnally to affected areas of dry skin to feet except for between the toes Twice a day for 30 days Active Vitamin D Active Vitamin C 1000 MG 1 tablet Orally Once a day Active Extra Depth Orthopedic Shoes (1 Pair) with Customized Heat Molded Multidensity Innersoles (3 Pair) as directed Dx: NIDDM/Polyneuropathy (E11.42), Hammertoe Foot Deformity (M20.41,M20.42), Preulcerative Skin Lesion(s) (L85.1 06/05/2023 Active tiZANidine HCl 4 MG 1 tablet as needed Orally Three times a day Active traZODone HCl 100 MG 1 tablet at bedtime Orally Once a day Active Myrbetriq Active Methenamine Hippurate 1 GM 1 tablet Orally Twice a day Active Lyrica 75 MG 1 capsule Orally Onc e a day Active Estradiol Active Omeprazole 40 MG 1 capsule Orally Onc e a day Active amLODIPine Besylate 5 MG 1 tablet Orally Once a day Active EpiPen Active Dicyclomine HCl 10 MG 2 capsules Orally Three times a day for 30 day(s) Active Cetirizine HCl Activ e Calcium Citrate + D3 Active Custom Orthotics as directed 08/05/2024 Active CeleBREX 200 MG 1 capsule with food Orally Once a day Active Lyrica 50 MG Orally Twice a day Not-Taking Methotrexate Not-Dexter ing Metoprolol Succinate ER 50 MG 1 tablet Orally Once a day Not-Taking Advair Diskus 250-50 MCG/DOSE 1 puff Inhalation Twice a day Not-Taking traMADol HCl 50 MG 1 tablet as needed Orally every 6 hrs Not-Taking Vitamin B 12 Not-Dexter ing Folic Acid Not-Takin g Incruse Ellipta 62.5 MCG/INH 1 puff Inhalation Once a day Not-Taking Social History Tobacco Use: Social History Observation Description Date Details (start date - stop date) Never Smoker NA - NA Tobacco Use/Smoking Question Answer Notes Are you a: nonsmoker Additional Findings: Tobacco Non-User Current no n-smoker Tobacco use other than smoking: Question Answer Notes Are you an other tobacco user? No Vital Signs Height 5ft1in in 08/05/2024 Weight 148 lbs 08/05/2024 BMI 27.96 kg/m2 08/05/2024 Blood pressure systolic 130 mm Hg 08/06/19 25 Blood pressure diastolic 80 mm Hg 025 Procedures Procedure Date Ordered Date Performed Result Body Sit e 32140-OGCA SKIN LESIONS, OVER 4 08/05/2024 N/A D8631-DPODLCZG DYSTROPHIC NAILS ANY # 08/05/2024 N/A Encounters Encounter Location Date Provider Diagnosis [facility] [address] [address] 08/05/2024 Shellie Drummond Pain in right foot M79.671 ; Metatarsalgia, right foot M77.41 ; Type 2 diabetes mellitus with diabetic polyneuropathy E11.42 ; Pain in right ankle and joints of right foot M25.571 ; Bursitis of intermetatarsal bursa of right foot M77.51 ; Xerosis of skin L85.3 and Rheumatoid arthritis with positive rheumatoid factor, involving unspecified site M05.9 Assessments Encounter Date Diagnosis (ICD Code) Assessment Notes Treatment Notes Treatment Clinical Notes Section Notes 08/05/2024 Pain in right foot (ICD-10 - M79.671) 08/05/2024 Metatarsalgia, right foot (ICD-10 - M77.41) 08/05/2024 Type 2 diabetes mellitus with diabetic polyneuropathy (ICD-10 - E11.42) 08/05/2024 Pain in right ankle and joints of right foot (ICD-10 - M25.571) 08/05/2024 Bursitis of intermetatarsal bursa of right foot (ICD-10 - M77.51) 08/05/2024 Xerosis of skin (ICD-10 - L85.3) 08/05/2024 Rheumatoid arthritis with positive rheumatoid factor, involving unspecified site (ICD-10 - M05.9) Plan Of Treatment Medication Medication Name Sig Start Date Stop Date Notes Custom Orthotics as directed 08/05/2024 Pending Test Test Name Order Date 42562-NPLF SKIN LESIONS, OVER 4 08/06/19 25 Z0101-MSLTHLEC DYSTROPHIC NAILS ANY # Next Appt Details Follow Up: 2 Months, Reason: Orthotic Disp/fit/eval Provider Name:Shellie Lawrence Bhanu , 10/14/2024 11:15:00 AM, [address] [place], [address], Provider Name:Shellie Drummond , 12/16/2024 08:00:00 AM, [address] [place], [address], Procedure Notes * Category Sub-Category Detail Notes [...] instrumentation by the physician of record - 93624 DME L3000 Custom OT- Pre scription Custom Fabricated insert, each, removable Biomechanical and casting performed, Prescription Custom Fabricated Foot Insert, each, removable: This type of device is fabricated from a three dimensional model of the patient's own foot (e.g. cast, foam impression, or virtual true 3-D digital image). This type of orthotic is a functional device made of a sufficiently rigid material to control function and reduce pathological forces which has a molded heel cup and trim lines with a minimum of a 10mm heel cup height to provide both medial and lateral directive forces to control the hind and fore foot Nail Reduction Nail Reduction (-27) Trimming o [...] bed tissue - G0127 Progress Notes * María SAWYER LDOB:[birth year] (73 yo F)Acc No.[id number]:08/05/2024 Progress Note Patient:?María SAWYER Provider:?Shellie Drummond DPM :1950???Age:73 Y???Sex:Female D ate:08/05/2024 Address:[address] [place] [address] [address], [place] Pcp:Margaret Webber Subjective: * Chief Complaints: * ???At Risk FootcareFoot pain Skin problem(s) * HPI: ???At Risk footcare:?Pt States Last PCP Visit:?Date?06/25/2024 ???Foot Pain:?Location:?Bottom, Forefoot, RIGHT.?Duration:?, several months.?Course:?unchanged.?Treatments:?rest/alter normal daily activity.?Skin problems:?Nature:?dryness , scaling.?Location:?B/L .?Duration:?, several months.?Course:?, improved, at 90_ %.?Treatments:?medication ( AM Lactin ), states adherence to recommended treatment application.? * ROS:?General/Constitutional:?Nausea?denies.?Vomiting?denies.?Hunger Thirst?denies.?Loss appetite?denies.?Chills?denies.?Fatigue?denies.?Fever?denies.?Night Sweats?denies.?Unexplained weight loss?denies.?Unexplained [...] than smoking?Are you an other tobacco user??No ???Miscellaneous:?Caffeine: yes, frequency:, 1-2 cups per day decaff tea. ?Children: yes, 2. ?Exercise: no. ?Marital status: single. 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 * Medications:?TakingCeleBREX 200 MG Capsule 1 capsule [...] Foot Deformity (M20.41,M20.42), Preulcerative Skin Lesion(s) (L85.1 Ammonium Lactate 12 % Cream 1 application Externally to affected areas of dry skin to feet except for between the toes Twice a day Taking CeleBREX 200 MG Capsule 1 capsule [...] Deformity (M20.41,M20.42), Preulcerative Skin Lesion(s) (L85.1 Taking Ammonium Lactate 12 % Cream 1 application Externally to affected areas of dry skin to feet except for between the toes Twice a day Not-Taking/PRNFamotidine Folic Acid Methotrexate Sodium 2.5 MG [...] Sodium 2.5 MG Tablet as directed Orally Not-Taking/PRN Voltaren 1 % Gel Transdermal Not-Taking/PRN Vitamin A Not- Taking/PRN Gabapentin Not-Taking/PRN Meloxicam 15 MG Tablet 1 [...] HClBactrimShellfish-derived ProductsShrimp (Diagnostic)yes[Allergies Verified] Objective: * Vitals:?Ht: 5ft1in, Wt:148, BMI:27.96, Shoe size: 9-9.5, BP:130/80mm Hg, Ht-cm: 154.94 cm, Wt-k.13 kg. * Examination: ???Ophthalmology Referral: ?DIABETES EYE EXAM?Diabetic Retinopathy Screening:?Yes ?Findings of Diabetic Eye Exam:?no retinopathy?General Examination: ?GENERAL APPEARANCE:?Reveals a pleasant, alert, well nourished, well- developed, well hydrated individual, who demonstrates proper attention to hygiene/body habitus, and is in no acute distress, Pt serves as own historian for office visit today.?ORIENTED:?person, place, and time.?Dermatologic: ?SKIN FINDINGS:?, Skin exam reveals Keratotic lesion(s) located at, IPJ, TA, T5,Plantar Heel(s), B/L, SUB MTH (s), 2, B/L , Skin shows sign(s) of, dryness, scaling, in a stocking fashion, no fissure(s) present, B/L, approximately _80? percent LESS.?Neurological: ?SENSORY:?Neurological exam demonstrates, reduced light touch sensation, reduced sharp/dull discrimination , reduced vibration sensation, reduced proprioception sensation, 5.07 monofilament test performed at plantar aspects of 5 varied sites per foot shows sensation, absent, , at Forefoot, B/L, Pt relates, increased?anesthesia,? forefoot B/L.?Nails: ?NAILS are:?Elongated, overgrown, dystrophic, T1 T2, T3, T4, T7,T8, T9,.?Vascular: ?DP PULSES (B):? 2/4, B/L.?PT PULSES (B):? 2/4, B/L.?Orthopedic: ?GAIT ABNORMALITY:?antalgic.?DIGITAL DEFORMITIES:?Digital contracture, PIPJ, 2-5 B/L, incompl-reducible with WB, or to push-up test, no over, nor underlapping.?MPJ PATHOLOGY:? Pain, swelling, and inflammation to [id number], MPJ(s), RIGHT, No MPJ pain with ROM, [ - ] Ecchymosis.?Neuroma Pain: ?PALPATION:?No interspace pain noted on palpation.?CQM Exceptions:: ?Hemoglobin A1c not performed?Reason:?No reason specified??? * Physical Examination:?L3000 Custom Fabricated OT:?Custom Orthotic?Custom Fabricated Orthoses.? Assessment: * Assessment: 1.?Pain in right foot - M79. 671???2.?Metatarsalgia, right foot - M77.41 (Primary)???Specify :Acute problem, Uncomplicated (3) Rx Management (4)???3.?Type 2 diabetes mellitus with diabetic polyneuropathy - E11.42???4.?Pain in right ankle and joints of right foot - M25.571???5.?Bursitis of intermetatarsal bursa of right foot - M77.51???6.?Xerosis of skin - L85.3???Specify :Response to treatment - Improvement???7.?Rheumatoid arthritis with positive rheumatoid factor, involving unspecified site - M05.9??? Plan: * Treatment: 2.?Type 2 diabetes mellitus with diabetic polyneuropathy?Procedure: 22194-XXNX SKIN LESIONS, OVER 4 ?Procedure: I3395-RRKVQYRH DYSTROPHIC NAILS ANY # * Procedures:?DME:?L3000 Custom OT- Prescription Custom Fabricated insert, each, removable?Biomechanical and casting performed, Prescription Custom Fabricated Foot Insert, each, removable: This type of device is fabricated from a three dimensional model of the patient's own foot (e.g. cast, foam impression, or virtual true 3-D digital image). This type of orthotic is a functional device made of a sufficiently rigid material to control function and reduce pathological forces which has a molded heel cup and trim lines with a minimum of a 10mm heel cup height to provide both medial and lateral directive forces to control the hind and fore foot.?Keratoma Treatment:?Parring or Cutting of Benign Hyperkeratotic Lesion(s)?(-57) [...] instrumentation by the physician of record - 24441.?Nail Reduction:?Nail Reduction?(-27) Trimming of all dystrophic nails [...] ING DYSTROPHIC NAILS ANY #, Modifiers: XS 76054 TRIM SKIN LESIONS, OVER 4, Modifiers: XS L3000 Prescription Custom Fabricated Foot [id number] Prescription Custom Fabricated Foot insert * Preventive Medicine:? ??Counseling:?Discussion:?-14: Office or other [...] have encouraged the patient to call the office.?BioMech.:?I discussed the Pts foot biomechanics with them and how it relates to their problem.?Orthotics:?I explained to the patient the benefits of OT use. I explained that orthoses are medically necessary to decrease the foot pain through proper mechanical control, support of their foot, decrease pain under the painful metatarsal by supplementing the soft tissue, possibly prevent surgery, Custom OT: A comprehensive biomechanical exam, gate analysis, and casting for custom orthoses was performed for L3000 ea per foot.?Xerosis:?Given recent successful results to treatment, The patient is to cont the rx cream as directed.? ??Screening/Special Tests:?Fall Risk?Screening:?No falls in the past year * Follow Up:?2 Months (Reason: Orthotic Disp/fit/eval) * Images: * Sign off status: Completed true * Provider:?Shellie rDummond DPM Date:?2024 Generated for Joanie ny/Florentino/Rwoan on:?08/12/2024 09:41 AM EDT History and Physical Notes * HPI (History of Present Illness) Category Sub-Category Detail Notes Category Not es Skin problems Nature: dryness , scaling Location: B/L Duration: , several months Course: , improved, at 90_ % Treatments: medication ( AM Lact in ), states adherence to recommended treatment application At Risk footcare Pt States Last PCP Visit: Date: 5 Foot Pain Location: Bottom, Forefoot, RIGHT Duration: , several months Course: unchanged Treatments: rest/alter normal da kathryn activity Physical Examination Category Sub-Category Detail Notes Section Note s L3000 Custom Fabricated OT Custom Orthotic Custom Fabricated Orthoses Examination Category Sub-Category Detail Notes Category Not es Ingrown Nail INSPECTION: Neuroma Pain PALPATION: No interspace pain noted on palpation Neurological SENSORY: Neurological exa m demonstrates, reduced light touch sensation, reduced sharp/dull discrimination , reduced vibration sensation, reduced proprioception sensation, 5.07 monofilament test performed at plantar aspects of 5 varied sites per foot shows sensation, absent, , at Forefoot, B/L, Pt relates, increased anesthesia, forefoot B/L TINEL'S COMPRESSION: Dermatologic SKIN FINDINGS: , Skin exam reve als Keratotic lesion(s) located at, IPJ, TA, T5,Plantar Heel(s), B/L, SUB MTH (s), 2, B/L , Skin shows sign(s) of, dryness, scaling, in a stocking fashion, no fissure(s) present, B/L, approximately _80 percent LESS Orthopedic GAIT ABNORMALITY: antalgic DIGITAL DEFORMITIES: Digital contracture , PIPJ, 2-5 B/L, incompl-reducible with WB, or to push-up test, no over, nor underlapping MPJ PATHOLOGY: Pain, swelling, and inflammation to [id number], MPJ(s), RIGHT, No MPJ pain with ROM, [ - ] Ecchymosis General Examination GENERAL APPEARANCE: Reveals a pleasant, alert, well nourished, well-developed, well hydrated individual, who demonstrates proper attention to hygiene/body habitus, and is in no acute distress, Pt serves as own historian for office visit today ORIENTED: person, place, and t keena Ophthalmology Referral DIABETES EYE EXAM Diabetic Retinopa thy Screening:: Yes Findings of Diabetic Eye Exam:: no retin opathy Vascular DP PULSES (B): 2/4, B/L PT PULSES (B): 2/4, B/L Nails NAILS are: Elongated, overg rown, dystrophic, T1 T2, T3, T4, T7,T8, T9, CQM Exceptions: Hemoglobin A1c not performed Reason:: No r martín specified
--- OUTSIDE RECORDS SUMMARY | 2024-08-12 09:41 | XMS_ITS | Data Portability ---
Author Organization [facility] Address [address] [place] [address] Care Team Providers Care Credit Front Office Developer Name Role Phone HIM CCA OTHER Assessment Encounter Date Assessment Date Assessment LastModified by Organization Details LastModified Time 05/21/2024 05/21/2024 I provided real -time medical direction via phone for this encounter and was available for additional phone-based assistance as needed. I have reviewed and agree with the Assessment and Plan as documented by the Chief Executive. Patient given the opportunity to ask questions. Our service contacted for an assessment of: Chronic BACK pain As per above, patient with hx of chronic pain. No new or worsening red S&S. No new bowel/bladder symptoms. No new gait abnl. No new neurological signs, symptoms or deficits. Per mortgage closer on the scene, VSS, non-toxic. Neuro grossly [...] Name and Address Organization Details Recorded Time 74790 lisinopri l medicatio n Not available Not available Not available 05/21/2024 25327 RxNorm Not Available [facility] - production 4 15:29:26 69904 hydrochlo rothiazid e medicatio n Not available Not available Not available 05/21/2024 5487 RxNorm Not Available [facility] - production 4 15:29:26 74758 sulfameth oxazole medicatio n Not available Not available Not available 05/21/2024 90570 RxNorm Not Available [facility] - production 4 15:29:26 75129 sulfaceta mide medicatio n Not available Not available Not available 05/21/2024 70770 RxNorm Not Available [facility] - production 4 [...] /min 152.4 cm 97 % 97 % 44135.0 24 g 97.8 [degF] 132 mm[Hg] 80 [...] SNOMED-CT Code Diagnosis ICD10 Code Diagnosis Note [id number] Maria De Jesus Monreal MD Main - [facility] [address] [place] [address] 05/21/2024 21:26:13 05/25/2024 20:20:41 Left side sciatica [id number] 00096 M54.32 Health Concerns Section Related Observation LastModified by Organization Detai ls LastModified Time None Recorded Concern Status LastModified by Organization Details LastModified Time None Recorded Advance Directives Directive None Recorded Payers Encounter Date Sequence Insurance Name Policy Number Policy Lance Covered Member ID Lance Member ID Guarantor Name 05/21/2024 1 [facility] - DOS ON OR AFTER 2022 - DUAL ELIGIBLE - INTERMEDIATE OPTIONS AND ONE CARE (MEDICARE REPLACEMENT/AD VANTAGE - HMO) María Sawyer [id number] María Sawyer Notes Date Note Type Note [...] ...................... ...................... ...................... ...................... ...................... ......... Chief Executive Note From Cirilo Michael: Arrived apartment building [...] the sciatic discomfort Vital signs as noted.Contacted [facility] and discuss patient presentation, assessment, and vitals. [...] ...................... ...................... ...................... ...................... ...................... ...................... ......... [facility] Consulted: Maria De Jesus Monreal ...................... ...................... ...................... ...................... ...................... ...................... ......... Disposition: Fulfilled Maria De Jesus Monreal MD [address] [facility],[address], [place], [address], [employer]PER 05/21/2024 21:28:55 OBGyn Episode No OBEpisode recorded.
--- OUTSIDE RECORDS SUMMARY | 2024-08-12 09:41 | XMS_ITS ---
Author Organization [facility] Address [address] [place] [address] Care Team Providers Care Supervisor Force Adjustment Name Role Phone Dwight Nicole MD Primary Care Provider Jordan Quiñones Unavailable [phone] REASON FOR VISIT dysphagia, can't swallow rice Problems Problem Type SNOMED Code ICD Code Onset Dates Problem Status W/U Status Risk Notes Problem Schatzki's ring ([id number]) Schatzki's ring (K22.2) Active confirmed Encounters Encounter Location Date Provider Diagnosis [facility] Outpatient [address], [place] [phone] 07/05/2024 Jordan Keyestzki's ring K2 2.2 and Dysphagia R13.10 Assessments Encounter Date Diagnosis (ICD Code) Assessment Notes Treatment Notes Treatment Clinical Notes Section Notes 07/05/2024 Schatzki's ring (ICD-10 - K22.2) 07/05/2024 Dysphagia (ICD-10 - R13.10) Plan Of Treatment No Information Progress Notes * HEATH NANCEDOB: [birth year] (73 yo F)Acc No.[id number]:07/05/2024 EGD/MAC Patient:?HEATH NANCE Provider:?Jordan Sanchez MD :1950???Age:73 Y???Sex:Female D ate:07/05/2024 Address:[address] [place] [address] [address], [id number] Pcp:Dwight Nicole MD Subjective: * Chief Complaints: * ???1. Dysphagia, can't swall ow rice. * Medical History:? Objective: * Vitals:? Assessment: * Assessment: 1.?Schatzki's ring - K22.2 ( Primary)???2.?Dysphagia - R13.10??? Plan: * Treatment: * Procedure Codes:?01330 ESOPH ENDOSCOPY, DILATION, 80531 UPPER GI ENDOSCOPY, BIOPSY, Modifiers: 59 * * The named appointment provid er may or may not be the originator of this progress note, and it is not deemed complete until electronically signed by the appointment provider. Sign off status: Pending * Provider:?Jordan Sanchez MD Date:? 025 Generated for Joanie ny/Florentino/Sudeepitting on:?08/12/2024 09:40 AM EDT
--- OUTSIDE RECORDS SUMMARY | 2024-08-12 09:42 | XMS_ITS ---
Author Name Kong JV, MS. Hawa Harkins Address [address] [place] [address] Phone [phone] [facility] Care Team Providers Care Project Scientist Name Role Phone Hawa Triana Unavailable [phone] Unavailable Unavailable Unavailable Vanstee, Bernie Unavailable [phone] Po, Lorenver Unavailable [phone] Reason for Referral Not Available Allergies, adverse [...] MUSCLE SPASM 2021-07-10 No Data Available Ipratropium [place] 0.06 % Solution USE 1 SPRAY IN EACH NOSTRIL THREE TIMES DAILY NEEDED FOR RUNNY NOSE 2021-09-03 No Data Available Diclofenac Sodium 1 % Gel No Data Available 2021-04-18 No Data Available EPINEPHrine 0.3 mg/0.3ML Solution Auto-injector INJECT 1 PEN IN THE MUSCLE DIRECTED FOR ANAPHYLAXIS 2021-09-03 No Data Available Vitamin A 3 mg (67634 UT) Cap TAKE TWO ( 2) CAPSULES [...] 2022-03-06 No Data Available VITAMIN A 3 MG(81613 UT) CAPS TAKE ONE C APSULE BY [...] Pain Assessment - NO pain present (1126F) [facility] [place] [place] Pain Assessment - NO pain present (1126F) [facility] [place] Pain Assessment - NO pain present (1126F) [facility] [place] Pain Assessment - NO pain present (1126F) [facility] [place] Pain Assessment - NO pain present (1126F) [facility] [place] Pain Assessment - NO pain present (1126F) [facility] [place] Pain Assessment - NO pain present (1126F) [facility] [place] Pain Assessment - NO pain present (1126F) [facility] [place] Pain Assessment - NO pain present (1126F) [facility] [place] 03/[place]/2022 Irritable bowel syndrome wit h diarrheaType 2 diabetes mellitus with diabetic neuropathy, unspecifiedInsomnia, unspecifiedGastro-esophageal reflux disease without esophagitisVitamin a deficiency, unspecifiedVitamin D deficiency, unspecifiedComplex regional pain syndrome I, unspecifiedUnspecified osteoarthritis, unspecified siteOveractive bladderBariatric surgery status No Data Available [facility] 04/24/2022 Urinary tract infection, sit e not specified Vital Signs Date of Collection Vitals 2022-03-07 08:29:34 Height - 154.94 cmWe ight - 61.69 kgBody Mass Index (BMI) - 25.7 kg/m2BP Diastolic - 82.0 mm[Hg]BP Systolic - 135.0 mm[Hg]Respiratory Rate - 52.0 /min Social History Social History Social History Observation Description Effec tive Time Current Smoking Status Former smoker 2024-07-25 0 Sex Female History of Procedures Procedures Service [...] 95 for video, modifier 93 for phone 08351 2022-03-07 No Data Available No Data Available No Data Available 17965 2022-04-24 No Data Available No Data Available Functional Status Functional Category Effective Dates Uses Walker or Cane - has a w/c but does n't have to use 2022-03-07 uses shower chair 2022-03-07 MORTGAGE LOAN ORIGINATOR 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 Follow-up with Tania as needed for any acute or disease education needs that may arise.Lost over 100lb, diabetes is controlled without medication. Member does have Neuropathy of feet/legsTakes GabapentinSees Dr. BeltranTakes TrazodoneFollows: Dr. Campbell dailyTakes Voltedgar and TizanidineFollows: Dr. Dwight Stevenson lost over [...] modifier 95Continue to see PCP. Follow-up with Tania as needed for any acute or disease education needs that may arise 16/12. Goals Date Goal 2022-03-07 Remember to 2022-03-07 Call me if 2022-03-07 Keep it up
--- OUTSIDE RECORDS SUMMARY | 2024-08-12 09:42 | XMS_ITS ---
Author Organization [facility] Address [address] [place] [address] Care Team Providers Care Hand Braille Transcriber Name Role Phone Po Dwight CRAIG Primary Care Provider Jordan Quiñones [phone] Encounters Encounter Location Date Provider Diagnosis [facility] [address] [place] [address] 03/01/2024 Jordan Sanchez Plan Of Treatment No Information Progress Notes * HEATH NANCEDOB: [birth year] (73 yo F)Acc No.[id number]:03/01/2024 Patient:?HEATH NANCE :1950???Age:73 Y???Sex:Female Address:[address] [place] [address] [address], [place] [address] * true * Date:? Generated for Joanie ny/Florentino/eTransmitting on:?08/12/2024 09:41 AM EDT
--- OUTSIDE RECORDS SUMMARY | 2024-08-12 09:42 | XMS_ITS ---
Author Organization [facility] Address [address] [place] [address] Care Team Providers Care General Maintenance Mechanic Name Role Phone Margaret Webber Primary Care Provider Unavailab Shellie Simpson Unavailable [phone] REASON FOR VISIT DME check on 06/16/24 Encounters Encounter Location Date Provider Diagnosis [address] [address] 05/27/2024 Shellie Drummond Plan Of Treatment Next Appt Details Provider Name:Shellie Drummond , 10/14/2024 11:15:00 AM, [address] [place] [address], [phone], Provider Name:Shellie Drummond , 12/16/2024 08:00:00 AM, [address] [place] [address], [phone], Progress Notes * Maraí NANCE LDOB:[birth year] (73 yo F)Acc No.[id number]:05/27/2024 Patient:?BALMILDREDJaylon LEIjennifer Lutz :1950???Age:73 Y???Sex:Female Address:[address] [place] [address] [address], [place], [address] * true * Date:? Generated for Printi ng/Faxing/eTransmitting on:?08/12/2024 09:41 AM EDT
--- OUTSIDE RECORDS SUMMARY | 2024-08-12 09:42 | XMS_ITS ---
Author Organization [facility] [place] Address [address] [place] [address] Care Team Providers Care Termite Control Technician Name Role Phone Margaret Webber Primary Care Provider Unavailab Shellie Simpson Unavailable [phone] Allergies Allergen (clinical drug ingredient) Drug/Non Drug [...] Ordered Date Performed Result Body Sit e 25724-Qygtuayi Plate 05/27/2024 N/A 86163-CRGH SKIN LESIONS, OVER 4 05/27/2024 N/A L5223-HXDDTUXF DYSTROPHIC NAILS ANY # 05/27/2024 N/A Encounters Encounter Location Date Provider Diagnosis [facility] [address] [place] [address] 05/27/2024 Shellie Black Pain in right foot [...] days Pending Test Test Name Order Date 70388-Jifauxmv Plate 05/27/2024 32407-TQCK SKIN LESIONS, OVER 4 05/27/19 25 U0551-IBUNYPKB DYSTROPHIC NAILS ANY # Next Appt Details Follow Up: 2 Weeks,prn, Reas on: Provider Name:Shellie Drummond , 10/14/2024 11:15:00 AM, [address] [place] [address], [phone], Provider Name:Shellie Drummond , 12/16/2024 08:00:00 AM, [address] [place] [address], [phone], Procedure Notes * Category Sub-Category Detail Notes [...] Motrin was recommended for pain or discomfort (11650), DIABETES: Matricectomy deferred at this time due [...] instrumentation by the physician of record - 20601 Nail Reduction Nail Reduction (-27) Trimming o [...] * GOYO María LDOB:[birth year] (73 yo F)Acc No.[id number]:05/27/2024 Progress Note Patient:?María SAWYER Provider:?Shellie Drummond DPM :1950???Age:73 Y???Sex:Female D ate:05/27/2024 Address:[address] [place], [place] [phone] Pcp:Margaret Webber Subjective: * Chief Complaints: * [...] ?Exercise: no. ?Marital status: single. 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 * Medications:?TakingCeleBREX 200 MG Capsule 1 capsule [...] for office visit today.?ORIENTED:?person, place, and time.?FOOT EXAM:?Lower Extremity Neurological Exam performed:?Yes ?Visual exam of foot performed:?Yes ?Date?05/27/2024 ?Sensory testing performed:?sensations diminished ?Sensory and motor testing performed:?sensations diminished ?Pedal pulse taking performed:?2+?Dermatologic: ?SKIN FINDINGS:?, Skin exam reveals Keratotic lesion(s) [...] underlapping.?MPJ PATHOLOGY:? Pain, swelling, and inflammation to hpsauhf7ui, MPJ(s), RIGHT, No MPJ pain with ROM, [...] Management (4)??? Plan: * Treatment: 2.?Ingrown nail?Procedure: 53628-Slrxhpwl Plate 3.?Xerosis of skin? Start Ammonium Lactate [...] instrumentation by the physician of record - 93463.?Nail Avulsion:?Location?Medial nail border, T6.?Anesthesia?, was deferred - [...] Motrin was recommended for pain or discomfort (54239), DIABETES: Matricectomy deferred at this time due [...] ING DYSTROPHIC NAILS ANY #, Modifiers: XS 90019 Avulsion Plate, Modifiers: T6 54731 TRIM SKIN LESIONS, OVER 4, Modifiers: XS [...] Sign off status: Completed true * Provider:?Shellie Durmmond DPM Date:?2024 Generated for Joanie ny/Florentino/Sudeepitting on:?08/12/2024 09:41 AM EDT History and Physical [...] MPJ PATHOLOGY: Pain, swelling, and inflammation to aobwtzx3ez, MPJ(s), RIGHT, No MPJ pain with ROM, [...]
== END ==
LOC: HO.HBST 09:07
PROVIDERS: PCP Internal Medicine; Visit Provider Counselor Mental Health
DX: F43.25 Adjustment disorder with mixed disturbance of emotions and conduct (principal); F50.9 Eating disorder, unspecified
CPT/HCPCS: 90834

== ENCOUNTER → 2024-08-12 09:07 | Outpatient (BNVA) | payer OTHER, SELFPAY | PROVIDERS: PCP Internal Medicine; Visit Provider Counselor Mental Health ==

== ENCOUNTER → 2024-08-16 07:52 | Outpatient (BNVA) | payer OTHER, SELFPAY | PROVIDERS: PCP Internal Medicine; Visit Provider Physician Assistant Surgical ==

== ENCOUNTER 2024-08-20 08:49 | Outpatient (AMB) | payer OTHER, SELFPAY ==
--- NOTE | 2024-08-20 09:00 | A.OFFWM_ITS ---
Intake Intake Visit Reasons: OV PO LSG 02/10/19 Allergies hydrochlorothiazide [HYDROCHLOROTHIAZIDE] Allergy (Severe, Verified 08/16/24 07:57) ANGIOEDEMA lisinopril [LISINOPRIL] Allergy (Severe, Verified 08/16/24 07:57) ANGIOEDEMA Sulfa (Sulfonamide Antibiotics) [SULFA (SULFONAMIDE ANTIBIOTICS)] Allergy (Severe, Verified 08/16/24 07:57) FACIAL SWELLING iron [IRON] Allergy (Intermediate, Verified 08/16/24 07:57) NAUSEA lactose [LACTOSE] Allergy (Intermediate, Verified 08/16/24 07:57) DIARRHEA sertraline [From ZOLOFT] Allergy (Intermediate, Verified 08/16/24 07:57) INSOMNIA codeine Allergy (Unknown, Verified 08/16/24 07:57) Unknown lobster Allergy (Severe, Uncoded 08/16/24 07:57) Anaphylaxis [facility] Medical History Overactive bladder Bowel obstruction Pleurisy Hypokalemia Diabetes Anxiety IBS (irritable bowel syndrome) Hyperlipidemia Duodenal ulcer Hiatal hernia Lesion of bladder Nephrolithiasis UTI (urinary tract infection) Protein deficiency Ventral hernia Binge-eating disorder, moderate Overweight BMI 25.0-25.9,adult Degenerative disc disease, cervical Spondylosis of cervical spine Obesity (BMI 30-39.9) Vaginal prolapse Peptic ulcer disease Esophageal stricture Vitamin D deficiency Peripheral neuropathy GERD (gastroesophageal reflux disease) Hypercholesterolemia RSD (reflex sympathetic dystrophy) Peripheral vascular disease Anemia Small bowel obstruction Osteopenia History of esophageal dilatation Tubular adenoma of colon Obstructive sleep apnea Hypertension Hemorrhoids Deviated septum Impaired glucose tolerance History of duodenal ulcer Osteoarthritis of knees, bilateral COPD (chronic obstructive pulmonary disease) Surgical History History of cystocele repair Hx of cystoscopy Hx of lumpectomy H/O colonoscopy History of esophagogastroduodenoscopy (EGD) Cystocele History of repair of hiatal hernia Hx of gastric bypass History of arthroscopy of left knee History of umbilical hernia repair History of tubal ligation History of hemorrhoidectomy History of nasal surgery History of tonsillectomy History of cholecystectomy Family History Father No problems noted. Mother No problems noted. Daughter Psoriatic arthritis Social History Housing: Apartment Are you a primary client care coordinator to a significant other at home: No Do you presently have visiting nurse or other home services: No Alcohol intake: former Comment: pressure Patient Tobacco Use Status: Former Tobacco user Tobacco use type: Cigarette e-Cigarette/Vaping Use: Never Used Second Hand Smoke Exposure: No service: No Current occupational status: retired Gender identity: Female Cognitive needs: No Hearing needs: No Vision needs: Yes (glasses) Female Reproductive History Menstrual Age of Menarche: 10 Behavioral Health Assessment Weight Management Therapy Therapy Notes Details Subjective: Patient reports feeling ?so-so.? She continues to struggle with procrastination, particularly around initiating behavior changes, frequently delaying her planned start dates for healthier habits. Objective: PT presents for a Post-op follow up visit. . Reviewed patient?s current routine, functioning, progress, and areas of need. Identified and discussed cognitive distortions contributing to challenges with binge eating and inconsistent food choices. Introduced cognitive restructuring tools and provided a related handout. Used motivational interviewing techniques to explore ambivalence toward behavior change, reinforce self-efficacy, and support patient autonomy. Identified both internal (e.g., self-doubt, lack of motivation) and external (e.g., time constraints, environment) barriers to physical activity. Collaboratively explored realistic, attainable starting points. Supported development of a short-term, patient-centered goal focused on improving consistency with healthy meal choices. Assessment/Response: * Mental status: Patient is alert and oriented to person, place, and time. Mood is described as ?neutral? or ?so-so.? Affect is congruent and appropriate. Thought process is logical and coherent. No psychosis or disorganized thinking noted. * Risk reported/identified: None Food/Weight/Diet Expectations of change PT's Target weight: 130-135 lbs. Weight as of 08/09/24: 149 lbs Assessment & Plan Assessment & Plan (1) Adjustment disorder with mixed disturbance of emotions and conduct: Code(s): F43.25 - Adjustment disorder with mixed disturbance of emotions and conduct (2) Eating disorder, unspecified: Code(s): F50.9 - Eating disorder, unspecified Plan Follow-up in 2 weeks: 09/03/2024 at 9:00 AM, in person. Homework: Read handout provided and Begin practicing meal planning using identified strategies. Track barriers and progress toward physical activity initiation for discussion in next session. Coding Level of Care Code Established Pt Psytx >53 mins (97795) Patient Type Established Diagnoses Adjustment disorder with mixed disturbance of emotions and conduct F43.25 Eating disorder, unspecified F50.9 Time Spent (min) 60
== END 2024-08-20 10:07 | disposition home or self-care (01) ==
LOC: HO.HBST 08:49
PROVIDERS: PCP Internal Medicine; Visit Provider Counselor Mental Health
DX: F43.25 Adjustment disorder with mixed disturbance of emotions and conduct (principal); F50.9 Eating disorder, unspecified
CPT/HCPCS: 90837

== ENCOUNTER → 2024-08-20 08:49 | Outpatient (BNVA) | payer OTHER, SELFPAY | PROVIDERS: PCP Internal Medicine; Visit Provider Counselor Mental Health ==

== ENCOUNTER → 2024-08-23 07:53 | Outpatient (BNVA) | payer OTHER, SELFPAY | PROVIDERS: PCP Internal Medicine; Visit Provider Physician Assistant Surgical | DX: Z04.89 Encounter for examination and observation for other specified reasons (principal) | CPT/HCPCS: 99211 ==

== ENCOUNTER 2024-10-12 07:19 | Outpatient (AMB) | payer OTHER, SELFPAY ==
--- NOTE | 2024-10-12 07:32 | MHC.OFFVIS ---
Intake Visit Reasons: 6m/PVR Intake Note: Patient is present for follow up on: recurrent uti, incontinence Urology Medications: estradiol cream, myrbetriq, methenamine, Vitamin C Blood Thinner: none PVR: 0ml's Pharmacovigilance Scientist Required: No Accompanied by: Self / Same As Patient Allergies hydrochlorothiazide [HYDROCHLOROTHIAZIDE] Allergy (Severe, Verified 10/12/24 13:38) ANGIOEDEMA lisinopril [LISINOPRIL] Allergy (Severe, Verified 10/12/24 13:38) ANGIOEDEMA Sulfa (Sulfonamide Antibiotics) [SULFA (SULFONAMIDE ANTIBIOTICS)] Allergy (Severe, Verified 10/12/24 13:38) FACIAL SWELLING iron [IRON] Allergy (Intermediate, Verified 10/12/24 13:38) NAUSEA lactose [LACTOSE] Allergy (Intermediate, Verified 10/12/24 13:38) DIARRHEA sertraline [From ZOLOFT] Allergy (Intermediate, Verified 10/12/24 13:38) INSOMNIA codeine Allergy (Unknown, Verified 10/12/24 13:38) Unknown lobster Allergy (Severe, Uncoded 10/12/24 13:38) Anaphylaxis Medication List - Last Reconciled 10/12/24 by VIKY Garcia-RUBEN acetaminophen 500 mg PO Q6H PRN amlodipine 5 mg PO DAILY ammonium lactate 12% appl topical BID ascorbic acid (vitamin C) 1,000 mg PO DAILY 90 days calcium citrate-vitamin D3 315 mg-6.25 mcg (250 unit) 1 tab PO DAILY celecoxib 200 mg PO DAILY cetirizine 10 mg PO DAILY cholecalciferol (vitamin D3) (Vitamin D3) 50 mcg PO BID d-mannose 1 ea PO DAILY diclofenac sodium 1% 4 grams topical QID PRN 90 days dicyclomine 10 - 20 mg PO Q6H PRN diphenhydramine-acetaminophen 25-500 mg (Tylenol PM Extra Strength) 2 tabs PO BEDTIME PRN epinephrine 0.3 mg IM ONCE PRN estradiol 0.01%(0.1mg/gram) pea sized amount to urethra three time per week 90 days famotidine 20 mg PO BEDTIME fluticasone propionate 50 mcg/actuation 1 spray intranasal DAILY ipratropium bromide 1 spray intranasal TID PRN loperamide (Imodium A-D) 2 mg PO QID PRN losartan 100 mg PO DIRECTED methotrexate sodium 15 mg (6 x 2.5 mg) PO QWEEK mirabegron ER (Myrbetriq) 50 mg PO DAILY 90 days omeprazole 20 mg PO QAM ondansetron 4 mg PO Q6H PRN pregabalin 75 mg PO BID [rollator walker with seat. As directed] simethicone 125 mg PO QIDACHS PRN tizanidine 4 mg PO Q8H PRN trazodone 50 mg (1/2 x 100 mg) PO BEDTIME PRN turmeric root extract 500 mg PO DAILY vitamin A 1 cap PO DAILY vitamins A,C,O-ghji-uqvtiz 2,148 mcg-113 mg-45 mg-17.4mg (PreserVision AREDS) 2 tabs PO BID zinc gluconate 30 mg PO DAILY HPI Comments Details: María is a very pleasant [address] Nicole. She has a past medical history of binge eating disorder, osteoarthritis, overweight, degenerative disc disease, obesity, peptic ulcer disease, esophageal stricture, vitamin-D deficiency, peripheral neuropathy, GERD, hypercholesteremia, peripheral vascular disease, OMID, hemorrhoids, and COPD. She presents to the office today for follow-up of her recurrent urinary tract infections and cystitis. In discussion with the patient today she reports to be doing and feeling well. She discusses having had a recent InterStim placement with Dr. 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 She reports compliance with methenamine, vitamin-C, and Estrace cream as prescribed. She reports having had one urinary tract infections since her last office visit here which was right before her InterStim placement. She discusses how helpful InterStim has been over the last month. She currently denies any bothersome urinary issues or concerns. Previous workup has included an in office cystoscopy with Dr. Chandra for recurrent urinary tract infections at which time office cystoscopy noted flattened erythematous lesion right lateral wall > 2 cm--to <5 cm. She then underwent cystoscopy with bladder biopsy under sedation. Bladder biopsy noted cystitis. In office urinalysis results reviewed with the patient today. PVR 0 mL. Previous workup has included a retroperitoneal ultrasound 07/18 noting nonobstructive echogenic stone lower pole right kidney. Left kidney is unremarkable. She has a past medical history of mesh being inserted with Dr. Chandler as well as InterStim however InterStim was removed related to infection. She reports having a cystocele and rectocele repair with Dr. Ayers in the past. Patient also reports having performed pelvic therapy in the past as well. She otherwise offers no other issues or concerns at this time. [facility] Medical History Overactive bladder Bowel obstruction Pleurisy Hypokalemia Diabetes Anxiety IBS (irritable bowel syndrome) Hyperlipidemia Duodenal ulcer Hiatal hernia Lesion of bladder Nephrolithiasis UTI (urinary tract infection) Protein deficiency Ventral hernia Binge-eating disorder, moderate Overweight BMI 25.0-25.9,adult Degenerative disc disease, cervical Spondylosis of cervical spine Obesity (BMI 30-39.9) Vaginal prolapse Peptic ulcer disease Esophageal stricture Vitamin D deficiency Peripheral neuropathy GERD (gastroesophageal reflux disease) Hypercholesterolemia RSD (reflex sympathetic dystrophy) Peripheral vascular disease Anemia Small bowel obstruction Osteopenia History of esophageal dilatation Tubular adenoma of colon Obstructive sleep apnea Hypertension Hemorrhoids Deviated septum Impaired glucose tolerance History of duodenal ulcer Osteoarthritis of knees, bilateral COPD (chronic obstructive pulmonary disease) Surgical History History of cystocele repair Hx of cystoscopy Hx of lumpectomy H/O colonoscopy History of esophagogastroduodenoscopy (EGD) Cystocele History of repair of hiatal hernia Hx of gastric bypass History of arthroscopy of left knee History of umbilical hernia repair History of tubal ligation History of hemorrhoidectomy History of nasal surgery History of tonsillectomy History of cholecystectomy Family History Father No problems noted. Mother No problems noted. Daughter Psoriatic arthritis Social History Housing: Apartment Are you a primary before and after school daycare worker to a significant other at home: No Do you presently have visiting nurse or other home services: No Alcohol intake: former Comment: pressure Patient Tobacco Use Status: Former Tobacco user Tobacco use type: Cigarette e-Cigarette/Vaping Use: Never Used Second Hand Smoke Exposure: No service: No Current occupational status: retired Gender identity: Female Cognitive needs: No Hearing needs: No Vision needs: Yes (glasses) Female Reproductive History Menstrual Age of Menarche: 10 Review of Systems Const Reports as per HPI Eyes Reports no additional complaints ENT Reports no additional complaints Card Reports as per HPI Resp Reports as per [facility] GI Reports as per [facility] Reports as per [facility] Musc Reports as per [facility] Psych Reports as per [facility] Endo Reports no additional complaints Gold/Lymph Reports no additional complaints Aller/Immun Reports no additional complaints Physical Exam Const General: cooperative, healthy appearing, comfortable, no acute distress, well developed, alert and awake Nutritional Appearance: overweight Orientation/consciousness: patient oriented x3 Limitations: no limitations HEENT Head: Yes normocephalic and Yes atraumatic Mouth: moist mucous membranes Eyes General: appearance normal, both eyes and all related structures Neck Neck: Yes normal visual inspection and Yes trachea midline Chest Chest palpation & inspection: normal inspection of the chest Resp Effort & Inspection: normal respiratory effort and able to speak in complete sentences Auscultation: clear to auscultation bilaterally Cardio Rate: regular rate Rhythm: regular rhythm GI Other: patient reports seroma to abdominal area. Palpation (GI): Soft to palpation General: Yes no CVA tenderness Back/Spine/Pelvis Back: no CVA tenderness Neuro General: patient oriented x3 Extrem Other: Right 3rd flexor tendon tenderness and some triggering Mild left wrist swelling and pain with flexion and extension Normal Range of motion of both elbows and shoulders without pain Bilateral knee crepitus and pain with flexion Worse on the right Normal nailfold capillaroscopy General: Yes normal to inspection Psych Appearance: grossly normal and well kempt Mental Status: mental status grossly normal Speech and movement: Normal speech and movement present Affect: normal affect Attitude: cooperative Thought process: Normal thought process present Thought content: Normal thought content present Insight: Fair insight present (Psych) Judgement: Fair judgement present (Psych) Office Procedures Post Void Residual Post Residual Void Post Void Residual (PVR): 0 [id number] Void Residual by ultrasound Results AMB Urinalysis, Automated UA Leukoctes 0 Walt/uL Last Edit by Juan Francisco Medel on 10/12/24 08:52 UA Nitrite Last Edit by Juan Francisco Medel on 10/12/24 08:52 UA Urobilinogen 0.2 mg/dL Last Edit by NearWoochristie Medel on 10/12/24 08:52 UA Protein 0 mg/dL Last Edit by ZohaibExaqtWorldchristie Medel on 10/12/24 08:52 UA pH 6.0 Last Edit by ZohaibExaqtWorldchristie Medel on 10/12/24 08:52 UA Blood 0 Bo/uL Last Edit by Juan Francisco Medel on 10/12/24 08:52 UA Specific Amity 1.015 Last Edit by Juan Francisco Medel on 10/12/24 08:52 UA Ketone Last Edit by Juan Francisco Medel on 10/12/24 08:52 UA Bilirubin 0 mg/dL Last Edit by Juan Francisco Medel on 10/12/24 08:52 UA Glucose 0 mg/dL Last Edit by Juan Francisco Medel on 10/12/24 08:52 Results Reviewed Results Reviewed: Laboratory Last Values Urine pH (Auto) 6.0 10/12/24 07:46 Specific Amity (Auto) 1.015 10/12/24 07:46 Urine Protein (Auto) 0 mg/dL 10/12/24 07:46 Glucose (UA)(Auto) 0 mg/dL 10/12/24 07:46 Urine Blood (Auto) 0 Bo/uL 10/12/24 07:46 Urine Bilirubin (Auto) 0 mg/dL 10/12/24 07:46 Urine Urobilinogen (Auto) 0.2 mg/dL 10/12/24 07:46 Leukocyte Esterase (Auto) 0 Walt/uL 10/12/24 07:46 Assessment & Plan Assessment & Plan (1) Recurrent urinary tract infection: Code(s): N39.0 - Urinary tract infection, site not specified Category: Medical Plan In office urinalysis results with the patient today; as noted above. PVR 0 mL. She currently denies any UTI like symptoms. She reports be happy with current voiding parameters. Continue methenamine, vitamin-C, and Estrace cream as prescribed. Discussed UTI prevention with D mannose supplement, vitamin-C, increasing fluid intake, behavioral therapy with timed voiding, perineal hygiene and postcoital voiding, and management of constipation with stool softeners and increased fiber intake. Follow-up in 6 months with PVR; or sooner with any issues, concerns, and or questions. Orders: Orders AMB Urinalysis Automated Today Z13.9 - Encounter for screening, unspecified AMB Post Void Residual by ultrasound Today R35.0 - Frequency of micturition Patient Instructions: The patient had an opportunity to ask questions regarding the treatment plan. All questions were answered. Physical exam, labs, and imaging were discussed and reviewed in detail. As well as risks, benefits, and discussion of treatment choices. No major barriers to understanding were identified. The patient expressed understanding and agreement with the above treatment plan. The patient was made aware they should contact our office by phone for worsening of their current condition, the appearance of new symptoms, or with any questions or concerns. Compliance is encouraged with any medications and follow up testing that is ordered. It is a privilege to be allowed the opportunity to participate in? your urological care.? Again, if you have any questions or concerns If you have any questions or concerns please do not hesitate to contact me. The office is [phone]. This note is constructed using voice recognition software. While every effort has been made to ensure accuracy pastoral counselor errors may have been included. Yours sincerely, BECCA Garcia Coding Level of Care Code Est Pt Level 3 (11571) Complex EM visit Add On G2211 Diagnoses Recurrent urinary tract infection N39.0 CPT Codes Post Residual Void - PVR CPT Code: 94990-[id number] Void Residual by ultrasound ([id number])
== END 2024-10-12 08:17 | disposition home or self-care (01) ==
LOC: HO.HUSH 07:20
PROVIDERS: PCP Internal Medicine; Visit Provider Nurse Practitioner Family
DX: Z13.9 Encounter for screening, unspecified (principal); N39.0 Urinary tract infection, site not specified
CPT/HCPCS: 99213; G2211

== ENCOUNTER → 2024-10-12 07:19 | Outpatient (BNVA) | payer OTHER, SELFPAY | PROVIDERS: PCP Internal Medicine; Visit Provider Nurse Practitioner Family | DX: N39.0 Urinary tract infection, site not specified (principal) | CPT/HCPCS: 51798; 81003; 99212 ==

== ENCOUNTER 2024-10-15 16:48 | Outpatient (REF) | payer OTHER, SELFPAY ==
--- OUTSIDE RECORDS SUMMARY | 2024-10-15 16:50 | XMS_ITS | Patient Health Record ---
Author Organization [facility] Address [address] [place] [address] Care Team Providers Care Nursing Program Manager Name Role Phone Dwight Nicole MD Primary Care Provider Jordan Quiñones [phone] Allergies Allergen (clinical drug ingredient) Drug/Non Drug [...] lisinopril Lisinopril Unknown Drug Allergy Activ e Results Component Value Reference Range Notes FL barium swallow with air ( Not yet reviewed by provider) Interpretation: Performing Lab: Notes/Report: [address] [address] Fluoroscopy Report Signed Patient: María Nance MR#: [id number] : 1950 Acct:[id number] Age/Sex: 73 / F ADM Date: 01/14/24 Loc: HO.XRAY Attending Dr: Jordan Sanchez MD Ordering Physician: Jordan Sanchez MD Date of Service: 01/14/24 Procedure(s): FL barium swallow with air Accession Number(s): [id number] cc: Dwight Nicole MD; Jordan Sanchez MD EXAMINATION: XR FLUOROSCOPY UPPER GI WITH AIR CLINICAL INFORMATION: Dysphagia, history of endoscopic dilations. History of Clemente-en-Y gastric bypass COMPARISON: Upper GI 2020, 2018, 2016 TECHNIQUE: Fluoroscopic air contrast upper GI [...] Yaniv Tim MD 01/16/2024 12:26 PM EDT RP Dictated By: Tyshawn Jones Signed By: <Electronically signed by Tyshawn Jones in OV> 01/16/24 1226 <Electronically signed by Yaniv Tim MD in OV> 04/28/24 1154 DD/ 9 TD/TT: 01/14/24 0810 Pattern Stamper: [place] [id number] Fluoroscopy Report Signed Patient: Karely Nance MR#: [id number] : 1950 Acct:[id number] Age/Sex: 73 / F ADM Date: 01/14/24 Loc: HO.XRAY Attending Dr: Jordan Sanchez MD Ordering Physician: Jordan Sanchez MD Date of Service: 01/14/24 Procedure(s): FL bar ium swallow with air Accession Number(s): [id number] cc: Dwight Nicole MD ; Jordan Sanchez MD EXAMINATION: XR FLUOROSCOPY UPPER GI WITH AIR CLINICAL INFORMATION: Dysphagia, history o f endoscopic dilations. History of Clemente-en-Y gastric bypass COMPARISON: Upper GI 2020, 2018, 2015 TECHNIQUE: Fluoroscopic air con trast upper GI examination was performed utilizing standard techniques with thin and thick barium and effervescent granules. Numerous s pot images were obtained. FINDINGS: Moderate to advanced degenerative spondylosis of the cervical spine spanning C4-C7 is no marybel with disc space narrowing and anterior disc osteophytes. Stairst ep mild retrolistheses of C3 on C4, C4 and C5 present, degenerativ e. Mild reversal of the normal cervical lordosis. Lateral cine images of the oropharynx and hypopharynx demonstrate normal swallow mecha nism with normal epiglottic inversion and soft palate elevation. No tracheal penetration, glottic or subglottic aspiration identifie d. No nasopharyngeal reflux present. There is narrowing of the cer vical esophagus just below the hypopharynx due to an anterior cervical web (RF 1-3, image 34). There is mild cricopharyngeal achalasia. Dual and single cont rast images of the esophagus demonstrate mildly tortuous course, but normal caliber, contour, and mucosal pattern. No evidence of strictur e, mass, or ulcerations identified. There is to and fro motion of the ba rium column with nonpropulsive tertiary contractions noted t hroughout the esophagus. There is a probable pulsion diverticulum just above the GE junction. The GE junction appears patent witho ut significant narrowing. There is a small typ e I hiatal hernia present. No significant gastroesophageal ref lux was seen during the course of the examination and on reflux views. Dual contrast and si ngle contrast images of the stomach demonstrated post surgical change s consistent with prior history of Clemente-en-Y gastric bypass. The gastrojejunostomy is widely patent, without evidence of strictur e. Evaluation of the gastric pouch mucosa is limited due to its p osition posterior to the jejunum. There are a few foci of contrast poi nt suggesting shallow submucosal apthous ulcers. Contrast freely pass ed into the alimentary limb without delay. The imaged jejunum has a normal fold pattern and caliber. FLUOROSCOPY TIME: 3 minutes 35 seconds Number of Spot Images: 5 Number of Cine: 13 DOSE AREA PRODUCT: 1372 uGy-m2 (microgr ay-meter squared) F L/FL barium swallow with air IMPRESSION: 1. Significant narro wing of the cervical esophagus just below the upper esophageal sphincter due to anterior cervical web. 2. Mild cricopharyng eal achalasia. 3. Esophageal dysmot ility and mild tortuosity. GE junction is mildly narrowed but patent. Pulsion diverticulum just above the GE junction. 4. Small type I hiatal hernia. 5. Post surgical inocente nges consistent with prior history of Clemente-en-Y gastric bypass. Eval uation of the gastric pouch mucosa demonstrates foci of contrast poo ling suggestive of submucosal apthous-type ulcers. The gastrojejunostom y is patent without evidence of stricture. This procedure was p erformed by Tyshawn Jones PA-C, and supervised by Dr. Tim Electronically susan d by: Yaniv Tim MD 01/16/2024 12:26 PM EDT RP Dictated By: Tyshawn Jones Signed By: <Sheng vences signed by Tyshawn Jones in OV> 01/16/24 1226 <Electronically sign ed by Yaniv Tim MD in OV> 04/28/24 1154 DD/ 0800 TD/TT: 01/14/24 0810 Pattern Stamper: Pathology Reviewed date:07/04/2024 02:01:29 PM Interpretation: Performing Lab:[facility], [address] [place] [id number] Notes/Report: Name: Jaylon Nance Age/Sex: 73/F : 1950 Unit#: [id number] Attend Dr: Jordan Sanchez MD Re02/23/24 Status : [facility] Location: [facility] Disch: SPEC : [id number] RECD : 02/23/24 STATUS: DALE BAUTISTA NUM: [id number] BRIAN: 02/23/[address] [facility] [address]: Jordan Sanchez MD ENTERED: 02/23/24- 53 SP TYPE: Surgical OTHR DR: Dwight Nicole MD ORDERED: HE Stain/3, Gross Micro L4 Diagnosis Esophagus, 20-25 cm, biopsy: Squamous epithelium with reactive changes and increased intraepithelial lymp hocytes. See comment. Comment: The finding s raise the possibility of lymphocytic esophagitis; please correlate with endoscopic findings. Clinical History Pre-Op Dx: Dysphagia Post-Op Dx: Esophage al strictures Microscopic Description Microscopic sections reviewed. Material Received Bx esophagus 20-25 cm, r/o EOE Gross Description Received in formalin labeled ?biopsy esophagus 20-25 cm R/0 EOE? are 3 fragments of translucent, white s oft tissue measuring 0.3-0.4 cm in greatest dimension which are wrapped in lens paper and en tirely submitted for microscopic examination, 3 pieces in cassette [facility] Copies To: wDight Nicole MD [facility] Primary Care,[facility] [address] [place], [place] [id number] Jordan Sanchez MD [facility] [address] [place] [address] CONTINUED ON NEXT PAGE Name: Jaylon Nance Age/Sex: 73/F : 1950 Unit#: [id number] Attend Dr: Jordan Sanchez MD Re02/23/24 Status : [facility] Location: [facility] Disch: SPEC : [id number] RECD : 02/23/24-848 STATUS: DALE BAUTISTA NUM: [id number] BIRAN: 02/23/24-[address] [facility] [address]: Jordan Sanchez MD ENTERED: 02/23/24- SP TYPE: Surgical OTHR DR: Dwight Nicole MD ORDERED: SAIDA /3, Vishal Micro L4 Signed (si gnature on file) Christiano White MD 02/24/24 1132 END OF REPORT Pathology (Not yet reviewed by provider) Interpretation: Performing Lab:[facility], [address] [place] [id number] Notes/Report: Name: Jaylon Nance Age/Sex: 73/F : 1950 Unit#: [id number] Attend Dr: Jordan Sanchez MD Re07/05/24 Status : [facility] Location: [facility] Disch: SPEC : [id number] RECD: 07/05/24 STATUS: DALE BAUTISTA NUM: [id number] BRIAN: 07/05/[address] [facility] [address]: Jordan Sanchez MD ENTERED: 07/05/24 SP TYPE: Surgical OTHR DR: Margaret Webber MD ORDERED: HE Stain/3, Gross Micro L4, Special st. 2, AB/PAS Diagnosis Esophagus, at 20-25 cm, biopsy: Squamous mucosa with increased intraepithelial lymphocytes and spon giosis; negative for intraepithelial neutrophils or eosinophils, fungal organisms, in testinal metaplasia and dysplasia (see comment). COMMENT: The histolo gic findings are suggestive of lymphocytic esophagitis. Gastroesophageal ref lux disease (GERD), Crohn's disease, dysmotility, achalasia and medication induced e sophagitis are some of the underlying conditions associated with lymphocytic esophagi tis pattern of injury. Clinical and endoscopic correlation is advised. Clinical History Pre-Op Dx: Dysphagia Post-Op Dx: Upper es ophageal stricture, lower esophageal stricture Microscopic Description Microscopic sections reviewed. The special stain for A/B PAS is negative for fungal organisms. Material Received Esophagus biopsies @ 20-25 cm, r/o lymphocytic esophagitis Gross Description Received in formalin labeled ?esophagus biopsies at 20-25 cm R/O lymphocytic esophagitis? are 4 fragments of t ranslucent, white soft tissue measuring 0.2-0.4 cm in greatest dimension which are wrapped in lens paper and entirely submitted for microscopic examination, 4 pieces in cassette [facility] Special stains order ed: A/B PAS on A. Copies To: Margaret Webber MD [facility] [address] [place] [address] [place] [id number] CONTINUED ON NEXT PAGE Name: Jaylon Nance Age/Sex: 73/F : 1950 Unit#: [id number] Attend Dr: Jordan Sanchez MD Re07/05/24 Status : [facility] Location: [facility] Disch: SPEC : [id number] RECD: 07/05/24 STATUS: DALE BAUTISTA NUM: [id number] BRIAN: 07/05/[address] [facility] [address]: Jordan Sanchez MD ENTERED: 07/05/24 SP TYPE: Surgical OTHR DR: Margaret Webber MD ORDERED: SAIDA Stain/3, Gross Micro L4, Special st. 2, AB/PAS Copies To: (Continued) Jordan Sanchez MD [address] [place] [address] Signed (si gnature on file) Joi Landers MD 07/06/24 1410 END OF REPORT Reason For Referral No Information Medications Medication SIG (Take, Route, Frequency, Duration) Notes Start Date End Date Status traZODone HCl 50 MG 1 tablet at [...] as needed Oral every 8 hours Active Omeprazole 20 MG 1 Orally Once a day every morning for 30 days Active OneTouch Verio - In Vitro for 30 Active amLODIPine Besylate 5 MG take 1 tablet b y mouth once daily Orally Active Ipratropium [place] 0.02 % 2.5 mL as nee ded Inhalation every 8 hrs Active Dicyclomine HCl 10 MG TAKE 1-2 CAPSULES BY MOUTH EVERY 6 HOURS NEEDED FOR ABDOMINAL CRAMPS, DISCOMFORT, BLOATING OR DIARRHEA for 12 Active Turmeric 500 MG as directed Orally Active Fluticasone Propionate 50 MCG/ACT 1 spray in each nostril Nasally Once a day for 30 day(s) Active Cetirizine HCl 10 MG 1 tablet Orally Onc e a day for 30 day(s) Active Folic Acid 1 MG 1 tablet Orally Once a day for 30 day(s) Not-Taking Methotrexate Sodium 2.5 MG as directed Orally Not-Taking Cholestyramine 4 GM/DOSE 1/2 to 1 scoop in a glass of water or juice Orally Once or Twice a day for diarrhea for 30 day(s) 02/20/2023 Not-Danny barreto Celebrate Calcium Citrate 500-12.5 MG-MCG as directed [...] Voltaren 1 % as directed Transdermal Active Immunizations Vaccine Route Administration Date Status Comme nts Influenza Unknown 01/24/2016 Administered Influenza Unknown 12/24/2017 Administered Influenza Unknown 02/02/2019 Administered Influenza Unknown 01/25/2020 Administered Influenza Unknown 04/15/2023 Administered Problems Problem Type SNOMED Code ICD Code Onset Dates Problem Status W/U Status Risk Notes Problem 137957317 Irritable bowel syndrome with diarrhea (K58.0) Active confirmed Problem Pharyngeal dysphagia (973076165053 05) Dysphagia, pharyngoesophageal phase (R13.14) Active confirmed Problem Dysphagia (90755945) Dysphagia (R13.10) Active confirmed Problem 788319535 Gastroesophageal reflux disease without esophagitis (K21.9) Active confirmed Problem Esophageal stricture (83498168) Esophageal stricture (K22.2) Active confirmed Problem 74366878 Pharyngoesophage al dysphagia (R13.14) Active confirmed Problem Barium swallow abnormal (546254924) Abnormal barium swallow (R93.3) Active confirmed Problem Schatzki's ring (13828811) Schatzki's ring (K22.2) Active confirmed Problem 98328310 Esophageal dysph agia (R13.10) Active confirmed Problem Benign esophageal stricture (530593917) Benign esophageal stricture (K22.2) Active confirmed Vital Signs Temperature 97.5 degrees Fahrenheit 01/23/2024 Blood pressure diastolic 00 mm Hg 01/23/2024 Height 61.25 in 01/23/2024 Blood pressure systolic 000 mm Hg 01/23/2024 Weight 143 lbs 01/23/2024 BMI 26.80 kg/m2 01/23/2024 Encounters Encounter Location Date Provider Diagnosis [facility] Outpatient [address] [place] [address] [place] [id number] 02/23/2024 Jordan Sanchez Esophageal stricture K22.2 ; Hiatal hernia K44.9 ; Dysphagia R13.[address] scan, esophagus R93.3 [facility] Outpatient [address] [place] [phone] 07/05/2024 Jordan Sanchez Schatzki's ring K22. 2 and Dysphagia R13.10 [facility] [address] [place] [phone] 01/23/2024 Jordan Sanchez Pharyngoesophageal dysphagia R13.14 ; Irritable bowel syndrome with diarrhea K58.0 ; Abnormal barium swallow R93.3 and Dysphagia R13.10 [facility] [address] [place] [phone] 01/05/2024 Jordan Sanchez Dysphagia, pharyngoesophageal phase R13.14 and Esophageal stricture K22.2 [facility] [address] [place] [phone] 01/23/2024 Jordan Sanchez [facility] [address] [place] [phone] 01/28/2024 Jordan Sanchez [facility] [address] [place] [phone] 02/24/2024 Jordan Sanchez [facility] [address] [place] [phone] 02/26/2024 Jordan Sanchez Dysphagia R13.10 and Benign esophageal stricture K22.2 [facility] [address] [place] [phone] 03/01/2024 Jordan Sanchez Assessments Encounter Date Diagnosis (ICD Code) Assessment Notes Treatment Notes Treatment Clinical Notes Section Notes 02/23/2024 Esophageal stricture (ICD-10 - K22.2) 02/23/2024 Hiatal hernia (ICD-1 0 - K44.9) 07/05/2024 Dysphagia (ICD-10 - R13.10) 07/05/2024 Schatzki's ring (ICD-10 - K22.2) 01/23/2024 Irritable bowel syndrome with diarrhea (ICD-10 - K58.0) Overall, María appears quite well. However, her recurrent dysphagia is quite problematic for her at this point. Given the abnormal barium swallow, as well as the excellent response she has to the dilation back in 2019, I did recommend another upper endoscopy with balloon dilation of the proximal esophagus. We can also inspect the gastroesophageal junction to be sure a dilation there is not required as well. Full consent was obtained from her for this, including risks of bleeding and perforation. As on her most recent exam in 2018 the procedure will be done with general anesthesia as she did not tolerate previous upper endoscopies with monitored anesthesia care due to agitation during the procedure. Full consent was obtained from her for this, including risks of bleeding and correction. The procedure note monitored anesthesia care. I will obtain biopsies from the proximal esophagus to inspect for eosinophilic esophagitis as well. María was comfortable with this plan. Thank you again for allowing me to participate in María's care. I shall continue to keep you advised of her progress. 01/23/2024 Pharyngoesophageal dysphagia (ICD-10 - R13.14) Stop Turmeric for 1 week before the endoscopy Overall, María appears quite well. However, her recurrent dysphagia is quite problematic for her at this point. Given the abnormal barium swallow, as well as the excellent response she has to the dilation back in 2019, I did recommend another upper endoscopy with balloon dilation of the proximal esophagus. We can also inspect the gastroesophageal junction to be sure a dilation there is not required as well. Full consent was obtained from her for this, including risks of bleeding and perforation. As on her most recent exam in 2019 the procedure will be done with general anesthesia as she did not tolerate previous upper endoscopies with monitored anesthesia care due to agitation during the procedure. Full consent was obtained from her for this, including risks of bleeding and correction. The procedure note monitored anesthesia care. I will obtain biopsies from the proximal esophagus to inspect for eosinophilic esophagitis as well. María was comfortable with this plan. Thank you again for allowing me to participate in María's care. I shall continue to keep you advised of her progress. 01/05/2024 Dysphagia, pharyngoesophageal phase (ICD-10 - R13.14) 02/26/2024 Dysphagia (ICD-10 - R13.10) 02/26/2024 Benign esophageal stricture (ICD-10 - K22.2) 02/23/2024 Dysphagia (ICD-10 - R13.10) 01/23/2024 Abnormal barium swallow (ICD-10 - R93.3) Overall, María appears quite well. However, her recurrent dysphagia is quite problematic for her at this point. Given the abnormal barium swallow, as well as the excellent response she has to the dilation back in 2019, I did recommend another upper endoscopy with balloon dilation of the proximal esophagus. We can also inspect the gastroesophageal junction to be sure a dilation there is not required as well. Full consent was obtained from her for this, including risks of bleeding and perforation. As on her most recent exam in 2018 the procedure will be done with general anesthesia as she did not tolerate previous upper endoscopies with monitored anesthesia care due to agitation during the procedure. Full consent was obtained from her for this, including risks of bleeding and correction. The procedure note monitored anesthesia care. I will obtain biopsies from the proximal esophagus to inspect for eosinophilic esophagitis as well. María was comfortable with this plan. Thank you again for allowing me to participate in María's care. I shall continue to keep you advised of her progress. 02/23/[address] scan, esophagus (ICD-10 - R93.3) 01/23/2024 Dysphagia (ICD-10 - R13.10) Overall, María appears quite well. However, her recurrent dysphagia is quite problematic for her at this point. Given the abnormal barium swallow, as well as the excellent response she has to the dilation back in 2019, I did recommend another upper endoscopy with balloon dilation of the proximal esophagus. We can also inspect the gastroesophageal junction to be sure a dilation there is not required as well. Full consent was obtained from her for this, including risks of bleeding and perforation. As on her most recent exam in 2019 the procedure will be done with general anesthesia as she did not tolerate previous upper endoscopies with monitored anesthesia care due to agitation during the procedure. Full consent was obtained from her for this, including risks of bleeding and correction. The procedure note monitored anesthesia care. I will obtain biopsies from the proximal esophagus to inspect for eosinophilic esophagitis as well. María was comfortable with this plan. Thank you again for allowing me to participate in María's care. I shall continue to keep you advised of her progress. 01/05/2024 Esophageal stricture (ICD-10 - K22.2) Plan Of Treatment Pending Test Test Name Order Date ENDOMYSIAL IGA 08/27/2012 TRANSGLUTAMINASE AB IGA 08/27/2012 TRANSGLUTAMINASE AB IGG 08/27/2012 XR BARIUM SWALLOW-ESOPHAGUS 01/05/2024 XR BARIUM SWALLOW-ESOPHAGUS 04/16/2016 XR BARIUM SWALLOW, MODIFIED VIDEO 2012 Pathology 07/05/2024 FL barium swallow with air 01/14/2024 Future Test Test Name Order Date UPPER GI ENDOSCOPY BALLOOON DILATION OF ESOPH 12/16/2012 COLONOSCOPY 12/16/2012 UPPER GI ENDOSCOPY BALLOOON DILATION OF ESOPH 10/02/2018 UPPER GI ENDOSCOPY BALLOOON DILATION OF ESOPH 01/23/2024 UPPER GI ENDOSCOPY BALLOOON DILATION OF ESOPH 02/27/2024 Insurance Providers Payer Name Payer Address Payer Phone Subscriber Number Group Number Insured Name Patient Relationship to Insured Coverage Start Date Coverage End Date [facility] [address] Attn Claims ELLEN Beckwith [id number] MARÍA MOHAN Self - patient is the insured [employer] [facility] [address] [place] [address] [id number] MARÍA MOHAN Self - patient is the insured Medical (General) History Medical History History ICD Code Hiatal hernia [...] her last colonoscopy being in 2008 Denies PR,CVA,renal disease Intermittent diarrhea, felt to be probably related to IBS-previous trials of cholestyramine were not helpful, nor did she like the taste--biopsies were negative for celiac disease Anxiety Asthma Arthritis Hospitalized in 10/2012 for c hest pain-neg. PR-had an ETT that was reportedly negative Upper [...]
[2024-10-15 17:16] LABS: Appearance Urine Cloudy; Color Urine Yellow; Glucose Urine UA Negative (Negative); Leukocyte Esterase Urine Large (3+) (Negative); Nitrite Urine Negative (Negative); Specific Gravity - Urine 1.025 (1.005-1.025); UMIC TRIGGER UA YES; Urine Blood Small (1+) (Negative); Urine Ketones Trace mg/dL (Negative); Urine Protein 30 (1+) mg/dL (Neg-Trace)
[2024-10-15 17:18] LABS: Bacteria Urine Trace (None Seen); Hyaline Casts Urine 0-2 /LPF (0-2); RBC Urine >20 /HPF (0-2); Squamous Epithelial Cell Urine 0-2 /HPF (0-2); WBC Urine >50 /HPF (0-5)
== END 2024-10-15 16:49 | disposition home or self-care (01) ==
LOC: HO.LAB 16:48
PROVIDERS: PCP Internal Medicine; Visit Provider Nurse Practitioner Family
DX: R35.0 Frequency of micturition (principal)
CPT/HCPCS: 81001; 87086; 87088; 87186

== ENCOUNTER 2024-11-03 16:02 | Outpatient (REF) | payer OTHER, SELFPAY ==
[2024-11-03 17:17] LABS: Appearance Urine Cloudy; Color Urine Yellow; Glucose Urine UA Negative (Negative); Leukocyte Esterase Urine Large (3+) (Negative); Nitrite Urine Negative (Negative); UMIC TRIGGER UACC YES; Urine Blood Negative (Negative); Urine Ketones Trace mg/dL (Negative); Urine Protein Trace mg/dL (Neg-Trace)
[2024-11-03 17:20] LABS: Bacteria Urine 4+ (None Seen); RBC Urine 0-2 /HPF (0-2); Squamous Epithelial Cell Urine 0-2 /HPF (0-2); UACC Culture Trigger YES; WBC Urine >50 /HPF (0-5)
--- OUTSIDE RECORDS SUMMARY | 2024-11-03 18:13 | XMS_ITS | Patient Health Record ---
Author Organization [facility] Address [address] [place] [address] Care Team Providers Care Ware Carrier Name Role Phone Dwight Nicole MD Primary Care Provider Jordan Quiñones [phone] Allergies Allergen (clinical drug ingredient) Drug/Non Drug [...] reviewed by provider) Interpretation: Performing Lab: Notes/Report: [address] [address] Fluoroscopy Report Signed Patient: María Nance MR#: [id number] : 1950 Acct:[id number] Age/Sex: 73 / F ADM Date: 01/14/24 Loc: HO.XRAY Attending Dr: Jordan Sanchez MD Ordering Physician: Jordan Sanchez MD Date of Service: 01/14/24 Procedure(s): FL barium swallow with air Accession Number(s): [id number] cc: Dwight Nicole MD; Jordan Sanchez MD [...] 04/28/24 1154 DD/ 9 TD/TT: 01/14/24 0810 Tank Car Inspector: [place] [address] Fluoroscopy Report Signed Patient: Karely Nance MR#: [id number] : 1950 Acct:[id number] Age/Sex: 73 / F ADM Date: 01/14/24 Loc: HO.XRAY Attending Dr: Jordan Sanchez MD Ordering Physician: Jordan Sanchez MD Date of Service: 01/14/24 Procedure(s): FL bar ium swallow with air Accession Number(s): [id number] cc: Dwight Nicole MD ; Jordan Sanchez [...] 04/28/24 1154 DD/ 0800 TD/TT: 01/14/24 0810 Tank Car Inspector: Pathology Reviewed date:07/04/2024 02:01:29 PM Interpretation: Performing Lab:[facility], [address] [place] [address] Notes/Report: Name: Jaylon Nance Age/Sex: 73/F : 1950 Unit#: [id number] Attend Dr: Jordan Sanchez MD Re02/23/24 Status : [facility] Location: [facility] Disch: SPEC : [id number] RECD : 02/23/24 STATUS: DALE BAUTISTA NUM: [id number] BRIAN: 02/23/24 [facility] DR: Jordan Sanchez MD ENTERED: 02/23/24- 53 [...] microscopic examination, 3 pieces in cassette [facility] Copies To: Dwight Nicole MD [facility] [place] Primary Care,[place] [address] [place], [place] [phone] Jordan Sanchez MD [facility] [address] [place] [address] CONTINUED ON NEXT PAGE Name: Jaylon Nance Age/Sex: 73/F : 1950 Unit#: [id number] Attend Dr: Jordan Sanchez MD Re02/23/24 [place] [facility] [place] [facility] Disch: SPEC : [id number] RECD : 02/23/24-848 STATUS: DALE BAUTISTA NUM: [id number] BRIAN: 02/23/24-800 [facility] DR: Jordan Sanchez MD ENTERED: 02/23/24- SP TYPE: Surgical OTHR DR: Dwight Nicole MD ORDERED: SAIDA /3, Vishal Micro L4 Signed (si gnature on file) Christiano White MD 02/24/24 1132 END OF REPORT Pathology (Not yet reviewed by provider) Interpretation: Performing Lab:[facility], [address] [place] [address] Notes/Report: Name: Jaylon Nance Age/Sex: 73/F : 1950 Unit#: [id number] Attend Dr: Jordan Sanchez MD Re07/05/24 Status : [facility] Location: [facility] Disch: SPEC : [id number] RECD: 07/05/24 STATUS: DALE BAUTISTA NUM: [id number] BRIAN: 07/05/24 [facility] DR: Jordan Sanchez MD ENTERED: 07/05/24 SP [...] microscopic examination, 4 pieces in cassette [facility] Special stains order ed: A/B PAS on A. Copies To: Margaret Webber MD [facility] [address] [place] [address] [place] [address] CONTINUED ON NEXT PAGE Name: Jaylon Nance Age/Sex: 73/F : 1950 Unit#: [id number] Attend Dr: Jordan Sanchez MD Re07/05/24 Status : [facility] Location: [facility] Disch: SPEC : [id number] RECD: 07/05/24 STATUS: DALE BAUTISTA NUM: [id number] BRIAN: 07/05/24 [facility] DR: Jordan Sanchez MD ENTERED: 07/05/24 SP TYPE: Surgical OTHR DR: Margaret Webber MD ORDERED: SAIDA Stain/3, Gross Micro L4, Special st. 2, AB/PAS Copies To: (Continued) Jordan Sanchez MD [address] [place] [address] Signed (si gnature on file) Joi Landers [...] y mouth once daily Orally Active Ipratropium [place] 0.02 % 2.5 mL as nee ded [...] Problem Status W/U Status Risk Notes Problem 453847531 Irritable bowel syndrome with diarrhea (K58.0) Active confirmed Problem Pharyngeal dysphagia (922724065991 05) Dysphagia, pharyngoesophageal phase (R13.14) Active confirmed Problem Dysphagia (94619399) Dysphagia (R13.10) Active confirmed Problem 964423617 Gastroesophageal reflux disease without esophagitis (K21.9) Active confirmed Problem Esophageal stricture (62496768) Esophageal stricture (K22.2) Active confirmed Problem 96330862 Pharyngoesophage al dysphagia (R13.14) Active confirmed Problem Barium swallow abnormal (761167717) Abnormal barium swallow (R93.3) Active confirmed Problem Schatzki's ring (70302041) Schatzki's ring (K22.2) Active confirmed Problem 18902424 Esophageal dysph agia (R13.10) Active confirmed Problem Benign esophageal stricture (622804074) Benign esophageal stricture (K22.2) Active confirmed Vital Signs Temperature 97.5 degrees Fahrenheit 01/23/2024 Blood pressure diastolic 00 mm Hg 01/23/2024 Height 61.25 in 01/23/2024 Blood pressure systolic 000 mm Hg 01/23/2024 Weight 143 lbs 01/23/2024 BMI 26.80 kg/m2 01/23/2024 Encounters Encounter Location Date Provider Diagnosis [facility] [place] Outpatient [address] [place] [address] [place] [id number] 02/23/2024 Jordan Sanchez Esophageal stricture K22.2 ; Hiatal hernia K44.9 ; Dysphagia R13.[address] scan, esophagus R93.3 [facility] [place] Outpatient [address] [place] [id number] 07/05/2024 Jordan Sanchez Schatzki's ring K22. [address] [facility] [address] [place] [address] 01/23/2024 Jordan Sanchez Pharyngoesophageal dysphagia R13.14 ; Irritable bowel syndrome with diarrhea K58.0 ; Abnormal barium swallow R93.[address] [facility] [address] [place] [address] 01/05/2024 Jordan Sanchez Dysphagia, pharyngoesophageal phase R13.14 and Es[address]ure K22.2 [facility] [address] [place] [address] 01/23/[address] [facility] [address] [place] [phone] 01/28/[address] [facility] [address] [place] [address] 02/24/[address] [facility] [address] [place] [address] 02/26/2024 Jordan Sanchez Dysphagia R13.10 and Benign esophageal stricture K22.2 [facility] [address] [place] [phone] 03/01/2024 Jordan Sanchez Assessments Encounter Date Diagnosis [...] Insured Coverage Start Date Coverage End Date [facility] [address] Attn Claims ELLEN Beckwith [id number] MARÍA MOHAN Self - patient is the insured [facility] [address] [place] [address] [phone] [id number] MARÍA MOHAN Self - patient is the [...] her last colonoscopy being in 2008 Denies [place],CVA,renal disease Intermittent diarrhea, felt to be probably related to IBS-previous trials of cholestyramine were not helpful, nor did she like the taste--biopsies were negative for celiac disease Anxiety Asthma Arthritis Hospitalized in 10/2012 for c hest pain-neg. [place]-had an ETT that was reportedly negative Upper [...]
== END 2024-11-03 16:03 | disposition home or self-care (01) ==
LOC: HO.LAB 16:02
PROVIDERS: PCP Internal Medicine; Visit Provider Nurse Practitioner Family
DX: R35.0 Frequency of micturition (principal)
CPT/HCPCS: 81001; 81003; 87086; 87088; 87186

== ENCOUNTER 2025-02-16 09:08 | Day surgery (SDC) | payer OTHER, SELFPAY ==
--- OUTSIDE RECORDS SUMMARY | 2024-03-01 10:50 | XMS_ITS ---
Author Organization [facility] Address [address] [place] [address] Care Team Providers Care Legal Word Processor Name Role Phone Margaret Webber Primary Care Provider UnavailJordan Ortega [phone] REASON FOR VISIT dysphagia, can't swallow rice Encounters Encounter Location Date Provider Diagnosis [facility] Outpatient [address] [place] [phone] 03/01/2024 Jordan Sanchez Plan Of Treatment Next Appt Details Provider Name:Jordan Harkins Sanchez , 02/17/2025 01:00:00 PM, [address] [place] [address] , [place], [place], [phone], Progress Notes * HEATH NANCEDOB: [birth year] (74 yo F)Acc No.[id number]:03/01/2024 EGD/MAC Patient: HEATH TINAJERO Provider: Jemma Sanchez MD :1950 A ge:73 Y S ex:Female Date:03/01/2024 Address:[address] [place] [address] [address], [id number] Pcp:Margaret Webber Subjective: * Chief Complaints: * 1 . Dysphagia, can't swallow rice. * Medical History: Objective: * Vitals: Assessment: Plan: * Treatment: * * The named appointment provid er may or may not be the originator of this progress note, and it is not deemed complete until electronically signed by the appointment provider. Sign off status: Pending * Provider: Jemma Sanchez MD Date: 1 Generated for Joanie ny/Florentino/Sudeepitting on: 0 02/14/2025 09:28 AM EDT
--- OUTSIDE RECORDS SUMMARY | 2024-07-05 03:30 | XMS_ITS ---
Author Organization [facility] Address [address] [place] [address] Care Team Providers Care Service Now Developer Name Role Phone Margaret Webber Primary Care Provider UnavailJordan Ortega Unavailable [phone] REASON FOR VISIT dysphagia, can't swallow rice Problems Problem Type SNOMED Code ICD Code Onset Dates Problem Status W/U Status Risk Notes Problem Schatzki's ring (82910179) Schatzki's ring (K22.2) Active confirmed Encounters Encounter Location Date Provider Diagnosis [facility] Outpatient [address] [place] [phone] 07/05/2024 Jordan Sanchez Schatzki's ring K2 2.2 and Dysphagia R13.10 Assessments Encounter Date Diagnosis (ICD Code) Assessment Notes Treatment Notes Treatment Clinical Notes Section Notes 07/05/2024 Schatzki's ring (ICD-10 - K22.2) 07/05/2024 Dysphagia (ICD-10 - R13.10) Plan Of Treatment Next Appt Details Provider Name:Jordan Sanchez , 02/17/2025 01:00:00 PM, [address] [place] [address] , [place], [place], [phone], Progress Notes * HEATH NANCEDOB: [birth year] (74 yo F)Acc No.[id number]:07/05/2024 EGD/MAC Patient: Hyacinth HEATH MONTESINOS Provider: Jemma Sanchez MD :1950 A ge:73 Y S ex:Female Date:07/05/2024 Address:[address] [place] [address] [address], [id number] Pcp:Margaret Webber Subjective: * Chief Complaints: * 1 . Dysphagia, can't swallow rice. * Medical History: Objective: * Vitals: Assessment: * Assessment: 1. S demetriki's ring - K22.2 (Primary) 2 . D ysphagia - R13.10 ? Plan: * Treatment: * Procedure Codes: 4 3249 ESOPH ENDOSCOPY, DILATION, 44700 UPPER GI ENDOSCOPY, BIOPSY, Modifiers: 59 * * The named appointment provid er may or may not be the originator of this progress note, and it is not deemed complete until electronically signed by the appointment provider. Sign off status: Pending * Provider: Jemma Sanchez MD Date: 0 07/05/2024 Generated for Joanie ny/Florentino/Sudeepitting on: 0 02/14/2025 09:26 AM EDT
--- OUTSIDE RECORDS SUMMARY | 2024-10-07 04:15 | XMS_ITS ---
Author Organization [facility] Address [address] [place] [address] Care Team Providers Care Aluminum Can Collector Name Role Phone Margaret Webber Primary Care Provider Unavailab Shellie Simpson Unavailable [phone] Del Cid Encounters Encounter Location Date Provider Diagnosis [address] [address] 10/07/2024 Shellie Bhanu Plan Of Treatment Next Appt Details Provider Name:Shellie Drummond , 02/17/2025 08:00:00 AM, [address] [place] [address], [phone], Provider Name:Shellie Drummond , 04/25/2025 08:15:00 AM, [address] [place] [address], [phone], Progress Notes * María SAWYER LDOB:[birth year] (74 yo F)Acc No.[id number]:10/07/2024 Progress Note Patient: María TINAJERO Provider: Janice Drummond DPM :1950 A ge:74 Y S ex:Female Date:10/07/2024 Address:[address] [place] [address] [address], [id number] Pcp:Margaret Webber Subjective: * Chief Complaints: * [address] Del Cid. * Medical History: Objective: * Vitals: Assessment: Plan: * Treatment: * Images: * The named appointment provid er may or may not be the originator of this progress note, and it is not deemed complete until electronically signed by the appointment provider. Sign off status: Pending * Provider: Janice Drummond DPM Date: 0 10/07/2024 Generated for Joanie ny/Florentino/Rowan on: 0 02/14/2025 09:27 AM EDT
--- OUTSIDE RECORDS SUMMARY | 2025-02-10 05:51 | XMS_ITS ---
Author Organization [facility] Address [address] [place] [address] Care Team Providers Care Farmworker Egg Producing Farm Name Role Phone Margaret Webber Primary Care Provider Unavailab brittanie Sanchez Jordan Unavailable [phone] REASON FOR VISIT Schedule EGD with Dilation for 02/17/25 Procedures Procedure Date Ordered Date Performed Result Body Sit e UPPER GI ENDOSCOPY BALLOOON DILATION OF ESOPH 02/10/2025 N/A Encounters Encounter Location Date Provider Diagnosis [facility] [address] [place] [address] 02/10/2025 Jordan Sanchez Dysphagia, pharyngoesophageal phase R13.14 Assessments Encounter Date Diagnosis (ICD Code) Assessment Notes Treatment Notes Treatment Clinical Notes Section Notes 02/10/2025 Dysphagia, pharyngoesophageal phase (ICD-10 - R13.14) Plan Of Treatment Pending Test Test Name Order Date UPPER GI ENDOSCOPY BALLOOON DILATION OF ESOPH 02/10/2025 Next Appt Details Provider Name:Jordan Sanchez , 02/17/2025 01:00:00 PM, [address] [place] [address] , [place], [place], [id number], Progress Notes * MADALYNHEATH LawrenceDOB: [birth year] (74 yo F)Acc No.[id number]:02/10/2025 Patient: HEATH TINAJERO :1950 A ge:74 Y S ex:Female Address[address], [place] [address] Subjective: * Chief Complaints: * S chedule EGD with Dilation for 02/17/25 * Medical History: * Surgical History: * Hospitalization/Major Diagno stic Procedure: * Medications: Objective: * Vitals: * Physical Examination: Assessment: * Assessment: 1. D ysphagia, pharyngoesophageal phase - R13.14 (Primary) Plan: * Treatment: * Procedure Codes: 4 3219 ESOPHAGUS ENDOSCOPY * * Date:
--- OUTSIDE RECORDS SUMMARY | 2025-02-14 09:27 | XMS_ITS ---
Author Name Knog JV, MS. Hawa Harkins Address [address] [place] [address] Phone [phone] [facility] Care Team Providers Care Field Sales Agent Name Role Phone Hawa Triana Unavailable [phone] Unavailable Unavailable Unavailable Vanstee, Bernie Unavailable [phone] Po, Lorenver Unavailable [phone] Reason for Referral Not Available Allergies, adverse [...] MUSCLE SPASM 2021-07-10 No Data Available Ipratropium [place] 0.06 % Solution USE 1 SPRAY IN EACH NOSTRIL THREE TIMES DAILY NEEDED FOR RUNNY NOSE 2021-09-03 No Data Available Diclofenac Sodium 1 % Gel No Data Available 2021-04-18 No Data Available EPINEPHrine 0.3 mg/0.3ML Solution Auto-injector INJECT 1 PEN IN THE MUSCLE DIRECTED FOR ANAPHYLAXIS 2021-09-03 No Data Available Vitamin A 3 mg (27440 UT) Cap TAKE TWO ( 2) CAPSULES [...] 2022-03-06 No Data Available VITAMIN A 3 MG(77525 UT) CAPS TAKE ONE C APSULE BY [...] List Problem Status Onset Date Resolved Date Synopsis Irritable bowel syndrome with diarrhea Active 2022-03-07 N/A N/A Type 2 diabetes, controlled, with neuropathy Active 2022-03-07 N/A Lost over 100lb, diabetes is controlled without medication. Member does have Neuropathy of feet/legsTakes GabapentinSees Dr. Nicole. Insomnia Active 2022-03-07 N/A Takes Trazodon eFollows: Dr. Nicole GERD (gastroesophageal reflux disease) Active 2022-03-07 N/A Pepcid daily Vitamin A deficiency Active 2022-03-07 N/A N/A Vitamin D deficiency Active 2022-03-07 N/A N/A Overactive bladder Active 2022-03-07 N/A Oscar garcía Reflex sympathetic dystrophy with osteoarthritis Active 2022-03-07 N/A Takes Voltaren a nd TizanidineFollows: Dr. Dwight Nicole Status post gastric bypass for obesity Active 2022-03-07 N/A Has lost over 10 0lb in 3 years from surgery. Encounters Encounters Type Facility Date of Service Diagnosis/Co mplaint Pain Assessment - NO pain present (1126F) [facility] Pain Assessment - NO pain present (1126F) [facility] [place] Pain Assessment - NO pain present (1126F[place] [facility] [place] Pain Assessment - NO pain present (1126F) [facility] Pain Assessment - NO pain present (1126F) [facility] [place] Pain Assessment - NO pain present (1126F) [facility] Pain Assessment - NO pain present (1126F[place] [facility] Pain Assessment - NO pain present (1126F) [facility] Pain Assessment - NO pain present (1126F) [facility]20[place] Irritable bowel syndrome wit h diarrheaType 2 diabetes mellitus with diabetic neuropathy, unspecifiedInsomnia, unspecifiedGastro-esophageal reflux disease without esophagitisVitamin a deficiency, unspecifiedVitamin D deficiency, unspecifiedComplex regional pain syndrome I, unspecifiedUnspecified osteoarthritis, unspecified siteOveractive bladderBariatric surgery status No Data Available [facility] [place]2022 Urinary tract infection, sit e not specified Vital Signs Date of Collection Vitals 2022-03-07 08:29:34 Height - 154.94 cmWe ight - 61.69 kgBody Mass Index (BMI) - 25.7 kg/m2BP Diastolic - 82.0 mm[Hg]BP Systolic - 135.0 mm[Hg]Respiratory Rate - 52.0 /min Social History Social History Social History Observation Description Effec tive Time Current Smoking Status Former smoker 2025-01-25 2 Sex Female History of Procedures Procedures Service [...] 95 for video, modifier 93 for phone [id number] 2022-03-07 No Data Available No Data Available No Data Available [address] 2022-04-24 No Data Available No Data Available Functional Status Functional Category Effective Dates Uses Walker or Cane - has a w/c but does n't have to use 2022-03-07 uses shower chair 2022-03-07 ENGAGEMENT MANAGER 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 [facility] or disease education needs that may arise.Lost over 100lb, diabetes is controlled without medication. Member does have Neuropathy of feet/legsTakes GabapentinSees Dr. BeltranTakes TrazodoneFollows: Dr. Campbell dailyTakes Voltaren and TizanidineFollows: Dr. Dwight Stevenson lost over [...]
--- OUTSIDE RECORDS SUMMARY | 2025-02-14 09:27 | XMS_ITS | Clinical Summary ---
Author Organization [facility] Address [address] [place] [address] Phone Care Team Providers Care Sound Art Instructor Name Role Phone Dwight Nicole MD Primary Care Provider [phone] Social History Tobacco Use Types Packs/Day Years Used Date Smoking Tobacco: Never Assessed Education Answer Date Recorded Are you interested in more education? Not on xochitl e 09/22/2022 Are you concerned about learning? Not on file 09/22/2022 No 09/22/2022 No 09/22/2022 Digital Access Answer Date Recorded No 10/20/2022 No 10/20/2022 No 10/20/2022 Reliable internet access at home? Not on file 10/20/2022 Device with a working camera? Not on file Comments Unknown Sex and Gender Information Value Date Recorded Sex Assigned at Not on file Legal Sex Female 4:57 PM EST Gender Identity Not on file Sexual Orientation Not on file Plan of Treatment Health Maintenance Due Date Last Done Comments Adult Td,Tdap Booster 1950 LIPID PANEL 1950 DEPRESSION SCREENING 1961 SMOKING Hx and SMOKELESS TOB ACCO SCREENING 1962 HEPATITIS C SCREENING 09/13/1967 COLOGUARD 1994 COLONOSCOPY 1994 COLORECTAL CANCER SCREENING 1994 FIT TEST 1994 FOBT 1994 SIGMOIDOSCOPY 1994 VIRTUAL COLONOSCOPY 1994 PNEUMOCOCCAL VACCINES (50+ y ears) (1 of 1 - PCV) 09/13/1999 ZOSTER VACCINES (1 of 2) 09/13/1999 OSTEOPOROSIS SCREENING INITI AL (ONE-TIME) 2014 RSV VACCINE (1 - 1-dose 75+ series) 2024 INFLUENZA VACCINE (#1) 2024 COVID-19 VACCINE ( - 2023-2 5 season) 2025 HEPATITIS A VACCINES Aged Out No long er eligible based on patient's age to complete this topic HIB VACCINES Aged Out No longer eligi ble based on patient's age to complete this topic MENINGOCOCCAL VACCINES (ACWY) Aged Out No longer eligible based on patient's age to complete this topic MENINGOCOCCAL VACCINES (B) Aged Out N o longer eligible based on patient's age to complete this topic Medical Devices Not on file Insurance [facility] DUAL MEDICARE REPLACEMENT MEDICARE PART A & B [facility] DUAL MEDICARE REPLACEMENT [place] [id number] MEDICARE PART A & B [facility] DUAL MEDICARE REPLACEMENT MEDICARE PART A & B [facility] DUAL MEDICARE REPLACEMENT MEDICARE PART A & B [facility] DUAL MEDICARE REPLACEMENT MEDICARE PART A & B [facility] DUAL MEDICARE REPLACEMENT MEDICARE PART A & B [facility] DUAL MEDICARE REPLACEMENT MEDICARE PART A & B [facility] DUAL MEDICARE REPLACEMENT MEDICARE PART A & B [facility] DUAL MEDICARE REPLACEMENT MEDICARE PART A & B Care Teams Sound Art Instructor Relationship Specialty Start Date End Date Dwight Nicole MD [address] [place] [address] [address] [place] [phone] PCP - General 03/02/21 Additional Source Comments The information contained in this document represents components of the legal health record. It is not the complete legal health record.[facility]
--- OUTSIDE RECORDS SUMMARY | 2025-02-14 09:27 | XMS_ITS | Patient Health Record ---
Author Organization [facility] Address [address] [place] [address] Care Team Providers Care Supply Chain Analyst Name Role Phone Kittymarilynn Margaret Primary Care Provider UnavailJordan Ortega Unavailable [phone] Allergies Allergen (clinical drug ingredient) Drug/Non Drug [...] e Results Component Value Reference Range Notes Pathology Reviewed date:07/04/2024 02:01:29 PM Interpretation: Performing Lab:[address] [address] Notes/Report: Pathology (Not yet reviewed by provider) Interpretation: Performing Lab:[facility], [address] [place] [address] Notes/Report: Reason For Referral No Information Medications Medication [...] day every morning for 30 days Active Ashley Coughlin - In Vitro for 30 Active amLODIPine Besylate 5 MG take 1 tablet b y mouth once daily Orally Active Ipratropium [place] 0.02 % 2.5 mL as nee ded [...] Voltaren 1 % as directed Transdermal Active Dicyclomine HCl 10 MG 1 or 2 Orally ever y 6 hours if needed for abdominal cramps, discomfort, and/or bloating for 30 days Active Immunizations Vaccine Route Administration Date Status Comme nts Influenza Unknown 01/24/2016 Administered Influenza Unknown 12/24/2017 Administered Influenza Unknown 02/02/2019 Administered Influenza Unknown 01/25/2020 Administered Influenza Unknown 04/15/2023 Administered Problems Problem Type SNOMED Code ICD Code Onset Dates Problem Status W/U Status Risk Notes Problem 330228079 Irritable bowel syndrome with diarrhea (K58.0) Active confirmed Problem Pharyngeal dysphagia (370366450206 05) Dysphagia, pharyngoesophageal phase (R13.14) Active confirmed Problem Dysphagia (79610965) Dysphagia (R13.10) Active confirmed Problem 392829502 Gastroesophageal reflux disease without esophagitis (K21.9) Active confirmed Problem Esophageal stricture (58795068) Esophageal stricture (K22.2) Active confirmed Problem 38644730 Pharyngoesophage al dysphagia (R13.14) Active confirmed Problem Barium swallow abnormal (076252222) Abnormal barium swallow (R93.3) Active confirmed Problem Schatzki's ring (42551725) Schatzki's ring (K22.2) Active confirmed Problem 95811357 Esophageal dysph agia (R13.10) Active confirmed Problem Benign esophageal stricture (896492782) Benign esophageal stricture (K22.2) Active confirmed Procedures Procedure Date Ordered Date Performed Result Body Sit e UPPER GI ENDOSCOPY BALLOOON DILATION OF ESOPH 02/10/2025 N/A Encounters Encounter Location Date Provider Diagnosis [facility] [place] Outpatient [address] [place] [id number] 02/23/2024 Jordan Sanchez Esophageal stricture K22.2 ; Hiatal hernia K44.9 ; Dysphagia R13.[address] scan, esophagus R93.3 [facility] [place] Outpatient [address] [place] [id number] 07/05/2024 Jordan Sanchez Schatzki's ring K22. 2 and Dysphagia R13.10 [facility] [address] [place] [phone] 02/10/2025 Jordan Sanchez Dysphagia, pharyngoesophageal phase R13.14 [facility] [address] [place] [address], [place] [address] 02/24/2024 Jordan Sanchez [facility] [address] [place] [address] 02/26/2024 Jordan Sanchez Dysphagia R13.10 and Benign esophageal stricture K22.2 [facility] [address] [place] [address] 03/01/2024 Jordan Sanchez [facility] [address] [place] [address] 02/02/2025 Jordan Sanchez Assessments Encounter Date Diagnosis (ICD Code) Assessment Notes Treatment Notes Treatment Clinical Notes Section Notes 02/23/2024 Esophageal stricture (ICD-10 - K22.2) 02/23/2024 Hiatal hernia (ICD-1 0 - K44.9) 07/05/2024 Dysphagia (ICD-10 - R13.10) 07/05/2024 Schatzki's ring (ICD-10 - K22.2) 02/10/2025 Dysphagia, pharyngoesophageal phase (ICD-10 - R13.14) 02/26/2024 Dysphagia (ICD-10 - R13.10) 02/26/2024 Benign esophageal stricture (ICD-10 - K22.2) 02/23/2024 Dysphagia (ICD-10 - R13.10) 02/23/[address] scan, esophagus (ICD-10 - R93.3) Plan Of Treatment Pending Test Test Name Order Date UPPER GI ENDOSCOPY BALLOOON DILATION OF ESOPH 02/10/2025 ENDOMYSIAL IGA 08/27/2012 TRANSGLUTAMINASE AB IGA 08/27/2012 [...] Provider Name:Jordan Sanchez , 02/17/2025 01:00:00 PM, [address] [facility] , [place], [place], [phone], Insurance Providers Payer Name Payer Address Payer Phone Subscriber Number Group Number Insured Name Patient Relationship to Insured Coverage Start Date Coverage End Date [facility] [address] Attn Claims ELLEN Beckwith [id number] HEATH MOHAN Self - patient is the insured MEDICAID [facility] [address] [place] [address] [id number] HEATH MOHAN - patient is the insured Medical (General) [...] her last colonoscopy being in 2008 Denies [place],CVA,renal disease Intermittent diarrhea, felt to be probably related to IBS-previous trials of cholestyramine were not helpful, nor did she like the taste--biopsies were negative for celiac disease Anxiety Asthma Arthritis Hospitalized in 10/2012 for c hest pain-neg. [place]-had an ETT that was reportedly negative Upper [...]
--- OUTSIDE RECORDS SUMMARY | 2025-02-14 09:29 | XMS_ITS | Patient Health Record ---
Author Organization [facility] [place] Address [address] [facility] [place] [address] Care Team Providers Care Bus Driver/Monitor Name Role Phone Kittymarilynn Margaret Primary Care Provider Unavailab Shellie Simpson Unavailable [phone] Allergies Allergen (clinical drug ingredient) Drug/Non Drug [...] (FN) Shellfish-derived Products Unknown Drug Allergy Active Results Component Value Reference Range Notes HEMOGLOBIN A1C (GLYCOHEMOGLO BIN) Reviewed date:10/14/2024 11:20:57 AM Interpretation: Performing Lab: Notes/Report: HEMOGLOBIN A1C % (HH) 5.6 HEMOGLOBIN A1C (GLYCOHEMOGLO BIN) Reviewed date:12/16/2024 08:04:53 AM Interpretation: Performing Lab: Notes/Report: HEMOGLOBIN A1C % (HH) 5.6 Reason For Referral No Information Medications Medication SIG (Take, Route, Frequency, Duration) Notes Start Date End Date Status Albuterol Sulfate 108 (90 Base) MCG/ACT 2 puffs as needed Inhalation every 6 hrs Not-Takin g Losartan Potassium 50 MG Orally Not-Taking Vitamin D Active Lamisil Not-Taking CeleBREX 200 MG 1 capsule with food Orally Once a day Active Vitamin C 1000 MG 1 tablet Orally Once a day Active Atropine Sulfate 1 tab Oral No t-Taking tiZANidine HCl 4 MG 1 tablet as needed Orally Three times a day Active Vitamin B 12 Not-Dexter ing traZODone HCl 100 MG 1 tablet at bedtime Orally Once a day Active Folic Acid Not-Takin g Ammonium Lactate 12 % 1 application Exte rnally to affected areas of dry skin to feet except for between the toes Twice a day; Duration: 30 days Active Advair Diskus 250-50 MCG/DOSE 1 puff Inhalation Twice a day Not-Taking Extra Depth Orthopedic Shoes (1 Pair) with Customized Heat Molded Multidensity Innersoles (3 Pair) as directed Dx: NIDDM/Polyneuropathy (E11.42), Hammertoe Foot Deformity (M20.41,M20.42), Preulcerative Skin Lesion(s) (L85.1 06/05/2023 Active traMADol HCl 50 MG 1 tablet as needed Orally every 6 hrs Not-Taking Triamcinolone Acetonide 55 MCG/ACT SPRAY ONE TO TWO SPRAYS IN EACH NOSTRIL DAILY Nasal; Duration: 30 Days Active Metoprolol Succinate ER 50 MG 1 tablet Orally Once a day Not-Taking Custom Orthotics as directed 08/05/2024 Active Incruse Ellipta 62.5 MCG/INH 1 puff Inhalation Once a day Not-Taking Vitamin A 3 MG (95227 UT) TAKE ONE CAPSULE BY MOUTH EVERY DAY Oral; Duration: 90 Days Active Albuterol Sulfate HFA 108 (90 Base) MCG/ACT INHALE TWO PUFFS BY MOUTH EVERY 4 HOURS NEEDED Inhalation; Duration: 16 Days Active Omeprazole 40 MG 1 capsule Orally Onc e a day Active Methotrexate Not-Dexter ing Famotidine Not-Takin g Lyrica 50 MG Orally Twice a day Not-Taking amLODIPine Besylate 5 MG 1 tablet Orally Once a day Active Methotrexate Sodium 2.5 MG as directed Orally Not-Takin g Folic Acid Not-Takin g Cetirizine HCl Activ e Vitamin A Not-Taking Calcium Citrate + D3 Active Voltaren 1 % Transdermal Not-T aking EpiPen Active Meloxicam 15 MG 1 tablet Orally Once a day; Duration: 30 day(s) Not-Dexter ing Dicyclomine HCl 10 MG 2 capsules Orally Three times a day; Duration: 30 day(s) Active Gabapentin Not-Takin g Lyrica 75 MG 1 capsule Orally Onc e a day Active Fluticasone-Salmeterol 250-50 MCG/DOSE 1 puff Inhalation Twice a day Not-Taking Estradiol Active Atorvastatin Calcium 20 MG 1 tablet Orally Once a day Not-Taking Myrbetriq Active Methenamine Hippurate 1 GM 1 tablet Orally Twice a day Active amLODIPine Besylate 5 MG 1 tablet Orally Once a day Not-Taking Immunizations Vaccine Route Administration Date Status Comme nts Influenza Unknown 01/28/2017 Administered Influenza Unknown 03/19/2018 Administered Influenza Unknown 01/26/2019 Administered Influenza Unknown 01/25/2020 Administered Influenza Unknown 01/24/2021 Administered Influenza Unknown 01/23/2023 Administered Influenza Unknown 01/25/2024 Administered COVID-19 Pfizer BioNTech Vaccine Unknown 04/09/2021 Administered 1st 07/25/2020 2nd 08/15/2020 Social History Tobacco Use: Social History Observation [...] Are you an other tobacco user? No AUDIT-C (Standard) Question Answer Notes Did you have a drink containing alcohol in the p ast year? No Points 0 Interpretation Negative Problems Problem Type SNOMED Code ICD Code Onset Dates Problem Status W/U Status Risk Notes Problem Polyneuropathy due to type 2 diabetes mellitus (502202947) Type 2 diabetes mellitus with diabetic polyneuropathy (E11.42) Active confirmed Vital Signs Blood pressure diastolic 80 mm Hg 12/16/2024 Height 5ft1in in 12/16/2024 Blood pressure systolic 130 mm Hg 12/16/2024 Weight 150 lbs 12/16/2024 BMI 28.34 kg/m2 12/16/2024 Procedures Procedure Date Ordered Date Performed Result Body Sit e 08014-HSJP SKIN LESIONS, OVER 4 03/19/2024 N/A Q4668-VLIWWDTI DYSTROPHIC NAILS ANY # 03/19/2024 N/A 03503-Zdzlxcce Plate 05/27/2024 N/A 66539-BDCV SKIN LESIONS, OVER 4 05/27/2024 N/A A7881-QIMDHMJO DYSTROPHIC NAILS ANY # 05/27/2024 N/A 88257-XZGX SKIN LESIONS, OVER 4 08/05/2024 N/A R3770-OABARLHM DYSTROPHIC NAILS ANY # 08/05/2024 N/A 71986-RDVC SKIN LESIONS, OVER 4 10/14/2024 N/A A7707-HAZRDHTN DYSTROPHIC NAILS ANY # 10/14/2024 N/A 79273-REOM SKIN LESIONS, OVER 4 12/16/2024 N/A J3415-FRHWHPSS DYSTROPHIC NAILS ANY # 12/16/2024 N/A Encounters Encounter Location Date Provider Diagnosis [address] [address] 03/19/2024 Shellie Black Type 2 diabetes mellitus with diabetic polyneuropathy E11.[address] [address] 05/27/2024 Shellie Black Pain in right foot M79.671 ; Metatarsalgia, right foot M77.41 ; Type 2 diabetes mellitus with diabetic polyneuropathy E11.42 ; Ingrown nail L60.0 ; Pain in right ankle and joints of right foot M25.571 ; Bursitis of intermetatarsal bursa of right foot M77.51 and Xerosis of skin L85.3 [facility] [address] [place] [address] 08/05/2024 Shellie Black Pain in right foot M79.671 ; Metatarsalgia, right foot M77.41 ; Type 2 diabetes mellitus with diabetic polyneuropathy E11.42 ; Pain in right ankle and joints of right foot M25.571 ; Bursitis of intermetatarsal bursa of right foot M77.51 ; Xerosis of skin L85.3 and Rheumatoid arthritis with positive rheumatoid factor, involving unspecified site M05.[address] [address] 10/14/2024 Shellie Black Metatarsalgia, right foot M77.41 ; Pain in right foot M79.671 ; Type 2 diabetes mellitus with diabetic polyneuropathy E11.42 ; Pain in right ankle and joints of right foot M25.571 ; Bursitis of intermetatarsal bursa of right foot M77.51 and Rheumatoid arthritis with positive rheumatoid factor, involving unspecified site M05.9 [facility] [address] [address] 12/16/2024 Shellie Drummond Type 2 diabetes mellitus with diabetic [facility]neuropathy [facility]11.[facility] [address] 05/27/[facility] [address] 08/19/2024 Shellie Drummond Assessments Encounter Date Diagnosis (ICD Code) Assessment Notes Treatment Notes Treatment Clinical Notes Section Notes 03/19/2024 Type 2 diabetes mellitus with diabetic polyneuropathy (ICD-10 - E11.42) 05/27/2024 Metatarsalgia, right foot (ICD-10 - M77.41) 05/27/2024 Pain in right foot (ICD-10 - M79.671) 08/05/2024 Metatarsalgia, right foot (ICD-10 - M77.41) 08/05/2024 Pain in right foot (ICD-10 - M79.671) 10/14/2024 Metatarsalgia, right foot (ICD-10 - M77.41) 10/14/2024 Pain in right foot (ICD-10 - M79.671) 12/16/2024 Type 2 diabetes mellitus with diabetic polyneuropathy (ICD-10 - E11.42) 10/14/2024 Type 2 diabetes mellitus with diabetic polyneuropathy (ICD-10 - E11.42) 08/05/2024 Type 2 diabetes mellitus with diabetic polyneuropathy (ICD-10 - E11.42) 05/27/2024 Type 2 diabetes mellitus with diabetic polyneuropathy (ICD-10 - E11.42) 05/27/2024 Ingrown nail (ICD-10 - L60.0) 08/05/2024 Pain in right ankle and joints of right foot (ICD-10 - M25.571) 10/14/2024 Pain in right ankle and joints of right foot (ICD-10 - M25.571) 08/05/2024 Bursitis of intermetatarsal bursa of right foot (ICD-10 - M77.51) 10/14/2024 Bursitis of intermetatarsal bursa of right foot (ICD-10 - M77.51) 05/27/2024 Pain in right ankle and joints of right foot (ICD-10 - M25.571) 05/27/2024 Bursitis of intermetatarsal bursa of right foot (ICD-10 - M77.51) 08/05/2024 Xerosis of skin (ICD-10 - L85.3) 08/05/2024 Rheumatoid arthritis with positive rheumatoid factor, involving unspecified site (ICD-10 - M05.9) 05/27/2024 Xerosis of skin (ICD-10 - L85.3) 10/14/2024 Rheumatoid arthritis with positive rheumatoid factor, involving unspecified site (ICD-10 - M05.9) Plan Of Treatment Pending Test Test Name Order Date 17686-BCGIRIH NAIL, 1-09/15/2017 81878-XFRNNYN NAIL, -5 03/19/2018 16881-CVYJFRI NAIL, -5 01/08/2018 80627-XEUDPEH NAIL, -5 09/10/2018 00904-ZABZNXG NAIL, -5 12/14/2018 71004-UHCMCGA NAIL, -5 03/25/2019 76000-KBEDWGK NAIL, -5 06/24/2019 32099-KMHPHTF NAIL, -5 11/11/2019 24941-WYDCSLP NAIL, -01/20/2020 97432-DEMCVGZ NAIL, -5 03/30/2020 98037-QDDEEKU NAIL, -5 07/13/2020 86991-MQJORZA NAIL, -5 09/14/2020 85310-RSYYPLO NAIL, -5 01/25/2021 63853-Okljveuh Plate 11/16/2020 81787-Cbzxweip Plate 09/14/2020 79687-Xihmrjft Plate 03/30/2020 81519-Kpnewceh Plate 04/30/2021 40822-Wrlurbkk Plate 07/12/2021 77468-Hvmureyq Plate 09/24/2021 67878-Jpiooacj Plate 01/20/2020 64377-Bssyhtnp Plate 11/11/2019 88100-Empglitm Plate 08/01/2022 81049-Cmopfjqe Plate 08/07/2023 45927-Ghumbaiy Plate 05/27/2024 72174-Rmvrnrhm Plate Each Additional 58724-Yfvckkvi Plate Each Additional 64531-Yiymmfys Plate Each Additional 09/2019 04556-Uhbrpclu Plate Each Additional 40017-Cmhsqlls Plate Each Additional 17509- Debride <25 sq cm 10/18/2021 01022- Debride <25 sq cm 09/24/2021 35321 I&D ABSCESS- SIMPLE,SINGLE 021 75543 I&D ABSCESS- SIMPLE,SINGLE 022 63782 I&D ABSCESS- SIMPLE,SINGLE 018 01139-OXXR SKIN LESIONS, OVER 4 05/27/19 51978-EQIN SKIN LESIONS, OVER 4 08/06/19 67102-KXQZ SKIN LESIONS, OVER 4 10/15/19 55582-VKBH SKIN LESIONS, OVER 4 12/17/19 23852-MKQJ SKIN LESIONS, OVER 4 03/19/20 86533-DQOE SKIN LESIONS, 2 TO 4 11/13/19 60357-OFDH SKIN LESIONS, 2 TO 4 08/02/19 64851-WJSC SKIN LESIONS, 2 TO 4 08/07/19 08521-NHZR SKIN LESIONS, 2 TO 4 12/13/19 07770-OOAA SKIN LESIONS, 2 TO 4 02/25/20 99974-BPPT SKIN LESIONS, 2 TO 4 06/05/19 08558-QSMX SKIN LESIONS, 2 TO 4 09/11/19 91589-KKCS SKIN LESIONS, 2 TO 4 01/09/20 96400-TDPW SKIN LESIONS, 2 TO 4 09/16/19 18 89281-SBYQ SKIN LESIONS, 2 TO 4 03/25/20 19 24765-VMUP SKIN LESIONS, 2 TO 4 12/15/19 19 03616-VLQO SKIN LESIONS, 2 TO 4 03/19/20 83571-UMGQ SKIN LESIONS, 2 TO 4 01/20/20 28694-AVIJ SKIN LESIONS, 2 TO 4 03/30/20 54178-KPIR SKIN LESIONS, 2 TO 4 11/11/19 58401-QYTC SKIN LESIONS, 2 TO 4 06/24/19 81729-JZIV SKIN LESIONS, 2 TO 4 12/18/19 91826-EFYN SKIN LESIONS, 2 TO 4 10/06/20 22 87923-MCTS SKIN LESIONS, 2 TO 4 07/12/19 22 26006-QHFU SKIN LESIONS, 2 TO 4 09/25/19 22 48369-SEPA SKIN LESIONS, 2 TO 4 04/30/20 21 76526-PDKG SKIN LESIONS, 2 TO 4 01/26/20 21 97957-VSYF SKIN LESIONS, 2 TO 4 07/13/19 21 72317-SOTN SKIN LESIONS, 2 TO 4 09/15/19 21 96092-HIZH SKIN LESIONS, 2 TO 4 11/17/19 21 15201-Bulu. Subungual Hematoma 2 81484-Kppr. Subungual Hematoma 9 Z2992-YIITQKYG DYSTROPHIC NAILS ANY # M0487-DUJYUVUJ DYSTROPHIC NAILS ANY # V1903-NOCFXZAI DYSTROPHIC NAILS ANY # N3988-OXNRUDGX DYSTROPHIC NAILS ANY # A9217-LHQBMCKC DYSTROPHIC NAILS ANY # S7199-INRQWPTU DYSTROPHIC NAILS ANY # U1747-FCZMMFVA DYSTROPHIC NAILS ANY # C6368-VABGOHYT DYSTROPHIC NAILS ANY # C6797-SDZDYMBB DYSTROPHIC NAILS ANY # X2249-TBWLPLLA DYSTROPHIC NAILS ANY # A4887-PRPFRCBN DYSTROPHIC NAILS ANY # B9973-CJJDLHGZ DYSTROPHIC NAILS ANY # Z3291-BIOYPGIE DYSTROPHIC NAILS ANY # F6236-CPLOKQXM DYSTROPHIC NAILS ANY # D9467-PDEWMXJW DYSTROPHIC NAILS ANY # M9146-KGISXGYZ DYSTROPHIC NAILS ANY # D7806-EQKEZUNZ DYSTROPHIC NAILS ANY # N5223-DSFVFBFK DYSTROPHIC NAILS ANY # N0941-UMCXVBEK DYSTROPHIC NAILS ANY # O0100-QOSXJOXL DYSTROPHIC NAILS ANY # J1593-SXAADPFM DYSTROPHIC NAILS ANY # N9032-VEXZDGFJ DYSTROPHIC NAILS ANY # H8349-OMTUDRLF DYSTROPHIC NAILS ANY # T4248-DWKDKBMQ DYSTROPHIC NAILS ANY # S8599-WQIBVMFI DYSTROPHIC NAILS ANY # L1306-UWLKPWSO DYSTROPHIC NAILS ANY # Z7983-ICRFGKSI DYSTROPHIC NAILS ANY # Z3469-NVSLNTEK DYSTROPHIC NAILS ANY # V7195-TMOLMPWG DYSTROPHIC NAILS ANY # C2664-TDLCHWHG DYSTROPHIC NAILS ANY # Next Appt Details Provider Name:Shellie Drummond , 02/17/2025 08:00:00 AM, [address] [place] [address], [phone], Provider Name:Shellie Drummond , 04/25/2025 08:15:00 AM, [address] [place] [address], [phone], Insurance Providers Payer Name Payer Address Payer Phone Subscriber Number Group Number Insured Name Patient Relationship to Insured Coverage Start Date Coverage End Date [facility] [employer] Claims [address] [facility] [place] [id number] [phone] [id number] María Cano Self - patient is the insured Medical (General) History Medical History History ICD Code Anemia Arthritis asthma Back,Hip,and Knee pain Broken bones CAD (Cholesterol) Cataracts Diabetic, borderline Fibromyalgia Gall bladder problems Headaches Hiatal hernia High blood pressure Macular degeneration RSD Numbness Poor circulation Reflux ( GERD) Sciatica Stomach ulcer Measles Mumps Chicken pox Diet controlled Diabetic rheumatoid arthritis Scoliosis Complex regional pain syndrome type 1 of both lower extremities G90.523 PlantarFlexion of metatarsal of left jasbir t M21.6X2 PlantarFlexion of metatarsal of right fo ot M21.6X1 Venous insufficiency I87.2 Arthritis M19.90 Other hammer toe(s) (acquired), right fo ot M20.41 Other hammer toe(s) (acquired), left jasbir t M20.42 Rheumatoid arthritis with po sitive rheumatoid factor, involving unspecified site M05.9 Surgical History Surgery Date(Month/Year) gall bladder 1994 lumpectomy 1979 umbilical hernia repair 2016 deviated septum repair 1974 hemorroid & fissure 1967 gastric bypass 02/10/19 Prolaps- moved bladder up 06/27/2020 cystocele repair 08/07/2021 rectocele repair 08/07/2021 biopsy, bladder 04/29/2023 stent implant 09/27/24 Hospitalization History Reason Date(Month/Year) [facility]-Stomach pain ? IBS 1 night stay 10/12 20 [facility]- Obstruction 10/12 [facility]- Gastric Bypass Sx 02/10/19
--- NOTE | 2025-02-15 09:52 | HO.ANESPROP2 ---
Documented by User: Nia Davis NP 02/15/25 09:53 HPI - Anesthesia Eval Consult details Narrative: 74yo F for Upper Endoscopy with Balloon Dilitation s/p same 06/2024 with TIVA PMFSH Active Problems Active Problems: All Active Problems Acute UTI (Acute) Adjustment disorder with mixed disturbance of emotions and conduct (Acute) Adjustment disorder with mixed disturbance of emotions and conduct in remission (Acute) Cognitive and behavioral changes (Acute) Fibromyalgia, primary (Acute) Lumbar spondylosis (Acute) Bilateral knee pain (Acute) Spondylolisthesis of lumbar region (Acute) Scoliosis of thoracolumbar spine (Acute) Lumbar degenerative disc disease (Acute) Lumbar radiculopathy (Acute) Chronic pain syndrome (Acute) Acute bilateral low back pain (Acute) SOB (shortness of breath) (Acute) Trigger finger, right middle finger (Acute) Dysphagia (Acute) Urinary frequency (Acute) Cystitis (Acute) 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) Osteoporosis (Acute) Left foot pain (Acute) Rheumatoid arthritis (Acute) Recurrent urinary tract infection (Acute) Bilateral renal stones (Acute) Insomnia (Acute) Seroma of digestive system after non-digestive system procedure (Acute) Bile salt-induced diarrhea (Acute) Peripheral vascular disease (Acute) Osteoarthritis of knees, bilateral (Acute) Bladder problem (Acute) Vitamin A deficiency (Acute) Vitamin D deficiency (Acute) Panniculitis (Acute) Alkaline phosphatase elevation (Acute) Impacted cerumen of both ears (Acute) Urinary incontinence (Acute) Annual physical exam (Acute) Abdominal pain (Acute) Abdominal pain (Acute) Intestinal malabsorption following gastrectomy (Acute) Dysuria (Acute) Fracture of proximal phalanx of right middle finger (Acute) Closed displaced fracture of neck of right fifth metacarpal bone (Acute) Distal radius fracture, right (Acute) Allergic rhinitis (Acute) Overweight (Acute) Nephrolithiasis (Acute) RSD (reflex sympathetic dystrophy) (Acute) Hx of gastric bypass (Acute) Degenerative disc disease, cervical (Acute) Spondylosis of cervical spine (Acute) GERD (gastroesophageal reflux disease) (Acute) Hypercholesterolemia (Acute) Hypertension (Acute) Osteoarthritis of knees, bilateral (Acute) COPD (chronic obstructive pulmonary disease) (Acute) Past Medical History Medical History Overactive bladder Bowel obstruction Pleurisy Hypokalemia Diabetes Anxiety IBS (irritable bowel syndrome) Hyperlipidemia Duodenal ulcer Hiatal hernia Lesion of bladder Nephrolithiasis UTI (urinary tract infection) Protein deficiency Ventral hernia Binge-eating disorder, moderate Overweight BMI 25.0-25.9,adult Degenerative disc disease, cervical Spondylosis of cervical spine Obesity (BMI 30-39.9) Vaginal prolapse Peptic ulcer disease Esophageal stricture Vitamin D deficiency Peripheral neuropathy GERD (gastroesophageal reflux disease) Hypercholesterolemia RSD (reflex sympathetic dystrophy) Peripheral vascular disease Anemia Small bowel obstruction Osteopenia History of esophageal dilatation Tubular adenoma of colon Obstructive sleep apnea Hypertension Hemorrhoids Deviated septum Impaired glucose tolerance History of duodenal ulcer Osteoarthritis of knees, bilateral COPD (chronic obstructive pulmonary disease) Family History Family History Father No problems noted. Mother No problems noted. Daughter Psoriatic arthritis Family history of problems with anesthesia: No Surgical History Surgical History History of cystocele repair Hx of cystoscopy Hx of lumpectomy H/O colonoscopy History of esophagogastroduodenoscopy (EGD) Cystocele History of repair of hiatal hernia Hx of gastric bypass History of arthroscopy of left knee History of umbilical hernia repair History of tubal ligation History of hemorrhoidectomy History of nasal surgery History of tonsillectomy History of cholecystectomy History of Problems with Anesthesia: No Social History Social History Housing: Apartment Are you a primary transitional care manager to a significant other at home: No Do you presently have visiting nurse or other home services: No Alcohol intake: former Comment: pressure Patient Tobacco Use Status: Former Tobacco user Tobacco use type: Cigarette e-Cigarette/Vaping Use: Never Used Second Hand Smoke Exposure: No Use of substances other than those prescribed or required for medical reasons: No Have you been hit, kicked, punched, or otherwise hurt by someone within the past year? If so, by whom?: No Are you DNR?: No Advance Directives: No Advance Directives Information Provided: Yes Patient : No Poor oral hygiene: Yes service: No Current occupational status: retired Gender identity: Female Cognitive needs: No Hearing needs: No Vision needs: Yes (glasses) Meds Allergies Allergy/AdvReac Type Severity Reaction Status Date / Time hydrochlorothiazide Allergy Severe ANGIOEDEMA Verified 02/16/25 09:44 (HYDROCHLOROTHIAZIDE) lisinopril (LISINOPRIL) Allergy Severe ANGIOEDEMA Verified 02/16/25 09:44 Sulfa (Sulfonamide Allergy Severe FACIAL Verified 02/16/25 09:44 Antibiotics) (SULFA SWELLING (SULFONAMIDE ANTIBIOTICS)) iron (IRON) Allergy Intermediate NAUSEA Verified 02/16/25 09:44 lactose (LACTOSE) Allergy Intermediate DIARRHEA Verified 02/16/25 09:44 sertraline (From ZOLOFT) Allergy Intermediate INSOMNIA Verified 02/16/25 09:44 codeine Allergy Unknown Unknown Verified 02/16/25 09:44 lobster Allergy Severe Anaphylaxis Uncoded 02/16/25 09:44 Home Medications ?Medication ?Instructions ?Recorded ?Confirmed ?Last Taken ?Type calcium 315 mg (as 1 tab PO DAILY 08/09/22 07/01/24 Unknown History citrate)-vitamin D3 6.25 mcg (250 unit) tablet dicyclomine 10 mg capsule 10 - 20 mg PO Q6H PRN cramps 04/04/23 07/01/24 Unknown History epinephrine 0.3 mg/0.3 mL 0.3 mg IM ONCE PRN Anaphylaxis 04/04/23 07/01/24 Unknown History injection, auto-injector famotidine 20 mg tablet 20 mg PO BEDTIME 04/04/23 07/01/24 02/23/24 History acetaminophen 500 mg tablet 500 mg PO Q6H PRN Pain 02/19/24 07/01/24 Unknown History cetirizine 10 mg tablet 10 mg PO DAILY allergies 02/19/24 07/01/24 Unknown History d-mannose 1 ea PO DAILY 02/19/24 07/01/24 Unknown History diphenhydramine 25 2 tab PO BEDTIME PRN Insomnia 02/19/24 07/01/24 Unknown History mg-acetaminophen 500 mg tablet (Tylenol PM Extra Strength) fluticasone propionate 50 1 spray intranasal DAILY 02/19/24 02/16/25 02/16/25 History mcg/actuation nasal spray,suspension loperamide 2 mg tablet (Imodium 2 mg PO QID PRN Diarrhea 02/19/24 07/01/24 Unknown History A-D) losartan 100 mg tablet 100 mg PO DIRECTED 02/19/24 07/01/24 Unknown History ondansetron 4 mg disintegrating 4 mg PO Q6H PRN Nausea And Vomiting 02/19/24 07/01/24 Unknown History tablet simethicone 125 mg tablet 125 mg PO QIDACHS PRN Abdominal 02/19/24 07/01/24 Unknown History Discomfort turmeric root extract 500 mg 500 mg PO DAILY 02/19/24 07/01/24 01/22/24 History capsule vitamins A,C,B-cnqx-tyjfxb 2,148 2 tab PO BID 02/19/24 07/01/24 Unknown History mcg-113 mg-45 mg-17.4 mg tablet (PreserVision AREDS) celecoxib 200 mg capsule 200 mg PO DAILY 07/02/24 07/02/24 Unknown History ammonium lactate 12 % topical cream appl topical BID 08/16/24 Unknown History ipratropium bromide 42 mcg (0.06 1 spray intranasal TID PRN Allergy 08/16/24 02/16/25 02/16/25 History %) nasal spray Symptoms omeprazole 20 mg capsule,delayed 20 mg PO QAM 08/16/24 02/16/25 02/16/25 History release vitamin A 3,000 mcg (10,000 unit) 1 cap PO DAILY 08/16/24 Unknown History capsule Exam Pertinent Lab Results Pertinent Lab Results: Laboratory Tests 05/17/24 05/20/24 06:20 06:35 WBC 5.0 Hgb 11.2 L Hct 36.1 L Plt Count 171 Sodium 140 Potassium 4.2 Chloride 109 H Carbon Dioxide 23 BUN 13 Creatinine 0.75 Assessment and Plan Assessment Anesthesia Assessment: Chart Reviewed Final Anesthetic Review Family History of Problems with Anesthesia: No History of Problems with Anesthesia: No Documented by User: Shannan Kohler MD 02/16/25 10:21 COUNT INCLUDES THE [facility] Past Medical History Medical History Overactive bladder Bowel obstruction Pleurisy Hypokalemia Diabetes Anxiety IBS (irritable bowel syndrome) Hyperlipidemia Duodenal ulcer Hiatal hernia Lesion of bladder Nephrolithiasis UTI (urinary tract infection) Protein deficiency Ventral hernia Binge-eating disorder, moderate Overweight BMI 25.0-25.9,adult Degenerative disc disease, cervical Spondylosis of cervical spine Obesity (BMI 30-39.9) Vaginal prolapse Peptic ulcer disease Esophageal stricture Vitamin D deficiency Peripheral neuropathy GERD (gastroesophageal reflux disease) Hypercholesterolemia RSD (reflex sympathetic dystrophy) Peripheral vascular disease Anemia Small bowel obstruction Osteopenia History of esophageal dilatation Tubular adenoma of colon Obstructive sleep apnea Hypertension Hemorrhoids Deviated septum Impaired glucose tolerance History of duodenal ulcer Osteoarthritis of knees, bilateral COPD (chronic obstructive pulmonary disease) Family History Family History Father No problems noted. Mother No problems noted. Daughter Psoriatic arthritis Surgical History Surgical History History of cystocele repair Hx of cystoscopy Hx of lumpectomy H/O colonoscopy History of esophagogastroduodenoscopy (EGD) Cystocele History of repair of hiatal hernia Hx of gastric bypass History of arthroscopy of left knee History of umbilical hernia repair History of tubal ligation History of hemorrhoidectomy History of nasal surgery History of tonsillectomy History of cholecystectomy Social History Social History Housing: Apartment Are you a primary transitional care manager to a significant other at home: No Do you presently have visiting nurse or other home services: No Alcohol intake: former Comment: pressure Patient Tobacco Use Status: Former Tobacco user Tobacco use type: Cigarette e-Cigarette/Vaping Use: Never Used Second Hand Smoke Exposure: No Use of substances other than those prescribed or required for medical reasons: No Have you been hit, kicked, punched, or otherwise hurt by someone within the past year? If so, by whom?: No Are you DNR?: No Advance Directives: No Advance Directives Information Provided: Yes Patient : No Poor oral hygiene: Yes service: No Current occupational status: retired Gender identity: Female Cognitive needs: No Hearing needs: No Vision needs: Yes (glasses) Meds Allergies Allergy/AdvReac Type Severity Reaction Status Date / Time hydrochlorothiazide Allergy Severe ANGIOEDEMA Verified 02/16/25 09:44 (HYDROCHLOROTHIAZIDE) lisinopril (LISINOPRIL) Allergy Severe ANGIOEDEMA Verified 02/16/25 09:44 Sulfa (Sulfonamide Allergy Severe FACIAL Verified 02/16/25 09:44 Antibiotics) (SULFA SWELLING (SULFONAMIDE ANTIBIOTICS)) iron (IRON) Allergy Intermediate NAUSEA Verified 02/16/25 09:44 lactose (LACTOSE) Allergy Intermediate DIARRHEA Verified 02/16/25 09:44 sertraline (From ZOLOFT) Allergy Intermediate INSOMNIA Verified 02/16/25 09:44 codeine Allergy Unknown Unknown Verified 02/16/25 09:44 lobster Allergy Severe Anaphylaxis Uncoded 02/16/25 09:44 Home Medications ?Medication ?Instructions ?Recorded ?Confirmed ?Last Taken ?Type calcium 315 mg (as 1 tab PO DAILY 08/09/22 07/01/24 Unknown History citrate)-vitamin D3 6.25 mcg (250 unit) tablet dicyclomine 10 mg capsule 10 - 20 mg PO Q6H PRN cramps 04/04/23 07/01/24 Unknown History epinephrine 0.3 mg/0.3 mL 0.3 mg IM ONCE PRN Anaphylaxis 04/04/23 07/01/24 Unknown History injection, auto-injector famotidine 20 mg tablet 20 mg PO BEDTIME 04/04/23 07/01/24 02/23/24 History acetaminophen 500 mg tablet 500 mg PO Q6H PRN Pain 02/19/24 07/01/24 Unknown History cetirizine 10 mg tablet 10 mg PO DAILY allergies 02/19/24 07/01/24 Unknown History d-mannose 1 ea PO DAILY 02/19/24 07/01/24 Unknown History diphenhydramine 25 2 tab PO BEDTIME PRN Insomnia 02/19/24 07/01/24 Unknown History mg-acetaminophen 500 mg tablet (Tylenol PM Extra Strength) fluticasone propionate 50 1 spray intranasal DAILY 02/19/24 02/16/25 02/16/25 History mcg/actuation nasal spray,suspension loperamide 2 mg tablet (Imodium 2 mg PO QID PRN Diarrhea 02/19/24 07/01/24 Unknown History A-D) losartan 100 mg tablet 100 mg PO DIRECTED 02/19/24 07/01/24 Unknown History ondansetron 4 mg disintegrating 4 mg PO Q6H PRN Nausea And Vomiting 02/19/24 07/01/24 Unknown History tablet simethicone 125 mg tablet 125 mg PO QIDACHS PRN Abdominal 02/19/24 07/01/24 Unknown History Discomfort turmeric root extract 500 mg 500 mg PO DAILY 02/19/24 07/01/24 01/22/24 History capsule vitamins A,C,V-vuos-hgjwbf 2,148 2 tab PO BID 02/19/24 07/01/24 Unknown History mcg-113 mg-45 mg-17.4 mg tablet (PreserVision AREDS) celecoxib 200 mg capsule 200 mg PO DAILY 07/02/24 07/02/24 Unknown History ammonium lactate 12 % topical cream appl topical BID 08/16/24 Unknown History ipratropium bromide 42 mcg (0.06 1 spray intranasal TID PRN Allergy 08/16/24 02/16/25 02/16/25 History %) nasal spray Symptoms omeprazole 20 mg capsule,delayed 20 mg PO QAM 08/16/24 02/16/25 02/16/25 History release vitamin A 3,000 mcg (10,000 unit) 1 cap PO DAILY 08/16/24 Unknown History capsule Exam Airway Mallampati Class: II TM Dist: >3cm Neck ROM: Full Denture: Upper and Lower Heart: rrr Lungs: cta Assessment and Plan Assessment Anesthesia Assessment: Anesthesia Plan Discussed Final Anesthetic Review NPO: Yes ASA Class: III Final Preanesthetic Review: No Changes in Pt Med Stat, Meds/Allgs Chart Reviewed and Consent Obtained/Reviewed Patient Risk: Intermediate Procedure Risk: Intermediate Anesthetic Plan Anesthetic Plan: MAC: Disposition: Standard PACU
[2025-02-16 09:46] VITALS: BP 131/68; PULSE 59; RESP 14; TEMP 36.6; O2SAT 95; BMI 29.6
[2025-02-16] MEDS: Lactated Ringers 1,000 ML 100 ML IVCONT (09:49)
[2025-02-16 11:58] VITALS: BP 110/51; PULSE 77; RESP 16; TEMP 36.2; O2SAT 94
--- NOTE | 2025-02-16 12:10 | PM.OP ---
Brief Operative Note Date of Service: 02/16/25 Pre-op diagnosis: Dysphagia Post-op diagnosis: other (Esophageal strictures at UES and at EG Junction) Procedure: EGD with balloon dilation of UES stricture from 12mm to 13.5mm to 15mm to 16.5mm, and balloon dilation of stricture at the EG Junction from 18mm to 20mm Surgeon: Jordan Sanchez MD Anesthesia: MAC Was an Flocculator Operator used for this Procedure?: No Estimated blood loss (mL): 2.0 Pathology: none sent Condition: stable Disposition: PACU
[2025-02-16 12:13] VITALS: BP 126/66; PULSE 66; RESP 20; TEMP 36.3; O2SAT 95
--- NOTE | 2025-02-16 22:25 | OP_ITS ---
DATE OF SERVICE: 02/16/2025 SURGEON: Jordan Sanchez MD INDICATIONS: Patient presents for evaluation of dysphagia. Full consent was obtained from her for this, including risks of bleeding and perforation. PREOPERATIVE DIAGNOSIS: Dysphagia. POSTOPERATIVE DIAGNOSIS: PROCEDURE PERFORMED: Esophagogastroduodenoscopy with balloon dilation of both the upper esophageal stricture and stricture at the gastroesophageal junction. ESTIMATED BLOOD LOSS: COMPLICATIONS: ANESTHESIA: Medication used; monitored anesthesia care. ASSISTANTS: SPECIMENS: POSTOPERATIVE DIAGNOSES: Dysphagia, stricture at gastroesophageal junction, stricture at upper esophageal sphincter. DESCRIPTION OF PROCEDURE: The patient was placed in the left lateral decubitus position. The Olympus video gastroscope was passed in the posterior oropharynx under direct vision. With insufflation of air I was able to visualize the upper esophageal sphincter, which did have a component of a fibrotic stricture, but this time allowed relatively easy passage of the scope beyond it. On previous upper endoscopies, the scope had to be popped past it.. There was no sign of any ulceration nor mass. The proximal esophagus did not have any rings noted. The scope was advanced to the distal esophagus. The gastroesophageal junction was seen at 35 cm and with insufflation of air it also appeared to be consistent with a nonobstructing esophageal stricture. The scope entered the stomach. There was a gastric remnant and the scope was advanced to the anastomosis of her previous gastric bypass. The anastomosis was widely patent and allowed easy passage into the small bowel. The small bowel mucosa appeared normal. The anastomosis appeared normal without ulceration. There was a single retained suture material noted. The scope was withdrawn back in the gastric remnant, which appeared normal, both in the forward viewing and retroflexed positions. There was no mass nor ulceration in the proximal stomach. The scope was straightened. The scope was withdrawn back to the level of the upper esophageal sphincter. I did use a [employer] incremental balloon to dilate the upper esophageal sphincter from 12 mm to 13.5 mm to 15 mm at the recommended pressure for 60 seconds each. Post-dilation there was minimal heme noted and no definitive disruption of the stricture. The scope was advanced back into the gastric remnant. I then used a [employer] incremental esophageal balloon to dilate the stricture at the gastroesophageal junction from 18 mm to 20 mm at the recommended pressure for 60 seconds each. Post dilation, there was clear disruption of the stricture at the EG junction. The scope was then withdrawn back into the upper esophagus. With insufflation of air, I was able to still visualize a stricture right at the upper esophageal sphincter, although again it did not appear to be particularly obstructing. I then used a 16.5 mm balloon to dilate the upper esophageal sphincter and stricture for 30 seconds at the recommended pressure. Post dilation, there was clearly more disruption of the stricture noted and some heme. It was easy to pass the scope past this and into the upper esophagus. At that point, the procedure was terminated. She tolerated the procedure well and was returned to the recovery area in stable condition. IMPRESSION: 1. Upper esophageal stricture at the level of the upper esophageal sphincter, status post balloon dilation. 2. Status post balloon dilation of stricture at gastroesophageal junction. PLAN: The patient has had a somewhat refractory course in regard to the strictures, particularly the proximal stricture. 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 I am going to put her on a trial of budesonide 9 mg daily for 2 months and then 6 mg daily until she sees me in followup to see if that might help give her longer relief in regard to the dilation and stricture. I shall also add omeprazole 40 mg daily. She does not make much acid given her gastric anatomy, but nonetheless, I shall put her on a trial of omeprazole as well. She will be seen in followup, but was advised to call sooner as needed. MD BRISA Ojeda/TANYA / [phone] MTDD
== END 2025-02-16 12:49 | disposition home or self-care (01) ==
PROVIDERS: PCP Internal Medicine; Visit Provider Internal Medicine
PROC: (CPT 43249; principal; 2025-02-16 10:30)
DX: K22.2 Esophageal obstruction (principal); R13.14 Dysphagia, pharyngoesophageal phase; K21.9 Gastro-esophageal reflux disease without esophagitis; K44.9 Diaphragmatic hernia without obstruction or gangrene; Z98.0 Intestinal bypass and anastomosis status; Z98.84 Bariatric surgery status; K58.0 Irritable bowel syndrome with diarrhea; I10 Essential (primary) hypertension; E11.9 Type 2 diabetes mellitus without complications; D64.9 Anemia, unspecified; E78.5 Hyperlipidemia, unspecified; J45.909 Unspecified asthma, uncomplicated; R09.1 Pleurisy; F41.9 Anxiety disorder, unspecified; G90.50 Complex regional pain syndrome I, unspecified; G47.33 Obstructive sleep apnea (adult) (pediatric); Z90.49 Acquired absence of other specified parts of digestive tract; Z88.2 Allergy status to sulfonamides; Z88.8 Allergy status to other drugs, medicaments and biological substances; Z98.890 Other specified postprocedural states; Z87.891 Personal history of nicotine dependence
CPT/HCPCS: 43249; C1726; J2003; J2704; J3010

== ENCOUNTER 2025-02-18 06:02 | Outpatient (REF) | payer OTHER, SELFPAY ==
--- OUTSIDE RECORDS SUMMARY | 2024-03-01 10:50 | XMS_ITS ---
Author Organization [facility] Address [address] [place] [address] Care Team Providers Care Roll Winder Name Role Phone Margaret Webber Primary Care Provider UnavailJordan Ortega [phone] REASON FOR VISIT dysphagia, can't swallow rice Encounters Encounter Location Date Provider Diagnosis [facility] [place] Outpatient [address] [place], [place] [phone] 03/01/2024 Jordan Sanchez Plan Of Treatment Next Appt Details Provider Name:Jordan Sanchez , 06/15/2025 01:00:00 PM, [address], [address], [place], [address], Progress Notes * HEATH NANCEDOB: [birth year] (74 yo F)Acc No.[id number]:03/01/2024 EGD/MAC Patient: HEATH TINAJERO Provider: Jemma Sanchez MD :1950 A ge:73 Y S ex:Female Date:03/01/2024 Address:[address] [place] [address] [address], [id number] Pcp:Margaret Webber Subjective: * Chief Complaints: * [...] Sanchez MD Date: 1 Generated for Joanie ny/Florentino/Rowan on: 0 02/18/2025 06:05 AM WARDT
--- OUTSIDE RECORDS SUMMARY | 2024-07-05 03:30 | XMS_ITS ---
Author Organization [facility] Address [address] [place] [address] Care Team Providers Care Machine Packer Name Role Phone Margaret Webber Primary Care Provider UnavailJordan Ortega Unavailable [phone] REASON FOR VISIT dysphagia, can't swallow rice Problems Problem Type SNOMED Code ICD Code Onset Dates Problem Status W/U Status Risk Notes Problem Schatzki's ring ([id number]) Schatzki's ring (K22.2) Active confirmed Encounters Encounter Location Date Provider Diagnosis [facility] [address] [place], [place] [id number] 07/05/2024 Jordan Sanchez Schatzki's ring K2 2.2 and Dysphagia R13.10 Assessments Encounter Date Diagnosis (ICD Code) Assessment Notes Treatment Notes Treatment Clinical Notes Section Notes 07/05/2024 Schatzki's ring (ICD-10 - K22.2) 07/05/2024 Dysphagia (ICD-10 - R13.10) Plan Of Treatment Next Appt Details Provider Name:Jordan Sanchez , 06/15/2025 01:00:00 PM, [address], [address], [place], [address], Progress Notes * HEATH NANCEDOB: [birth year] (74 yo F)Acc No.[id number]:07/05/2024 EGD/MAC Patient: Hyacinth TOBYSOURAVJemmaTHIAGO HERNANDEZRY Provider: Jemma Sanchez MD :1950 A ge:73 Y S ex:Female Date:07/05/2024 Address:[address] [place] [address] [address], [id number] Pcp:Margaret Webber Subjective: * Chief Complaints: * 1 . Dysphagia, can't swallow rice. * Medical History: Objective: * Vitals: Assessment: * Assessment: 1. S sarkiszki's ring - K22.2 (Primary) 2 . D ysphagia - R13.10 ? Plan: * Treatment: * Procedure Codes: 4 3249 ESOPH ENDOSCOPY, DILATION, 62546 UPPER GI ENDOSCOPY, BIOPSY, Modifiers: 59 * * The named appointment provid er may or may not be the originator of this progress note, and it is not deemed complete until electronically signed by the appointment provider. Sign off status: Pending * Provider: Jemma Sanchez MD Date: 0 07/05/2024 Generated for Joanie ny/Florentino/Sudeepitting on: 0 02/18/2025 06:05 AM EDT
--- OUTSIDE RECORDS SUMMARY | 2024-10-07 04:15 | XMS_ITS ---
Author Organization [facility] Address [address] [place] [address] Care Team Providers Care Lead Game Designer Name Role Phone Margaret Webber Primary Care Provider Unavailab brittanie Drummond Shellie Unavailable [phone] Del Cid Encounters Encounter Location Date Provider Diagnosis [address] [address] 10/07/2024 Shellie Bhanu Plan Of Treatment Next Appt Details Provider Name:Shellie Drummond , 04/25/2025 08:15:00 AM, [address] [place] [address], [phone], Provider Name:Shellie Drummond , 06/27/2025 08:00:00 AM, [address] [place] [address], [phone], Progress Notes * María SAWYER LDOB:[birth year] (74 yo F)Acc No.[id number]:10/07/2024 Progress Note Patient: María TINAJERO Provider: Janice Drummond DPM :1950 A ge:74 Y S ex:Female Date:10/07/2024 Address:[address] [place] [address] [address], [id number] Pcp:Margaret Webber Subjective: * Chief Complaints: * [...] 10/07/2024 Generated for Joanie ny/Florentino/Rowan on: 0 02/18/2025 06:05 AM EDT
--- OUTSIDE RECORDS SUMMARY | 2025-02-16 06:40 | XMS_ITS ---
Author Organization [facility] Address [address] [place] [address] Care Team Providers Care Environmental Professional Name Role Phone Margaret Webber Primary Care Provider Jordan Guillen [phone] Encounters Encounter Location Date Provider Diagnosis [facility] [address] [place] [id number] 02/16/2025 Jordan Sanchez Plan Of Treatment Next Appt Details Provider Name:Jordan Sanchez , 06/15/2025 01:00:00 PM, [address], [address], [place], [address], Progress Notes * HEATH NANCEDOB: [birth year] (74 yo F)Acc No.[id number]:02/16/2025 EGD/MAC Patient: HEATH TINAJERO Provider: Jemma Sanchez MD :1950 A ge:74 Y S ex:Female Date:02/16/2025 Address:[address] [place] [address] [address], [id number] Pcp:Margaret Webber Subjective: * Chief Complaints: * * Medical History: Objective: * Vitals: Assessment: Plan: * Treatment: * * The named appointment provid er may or may not be the originator of this progress note, and it is not deemed complete until electronically signed by the appointment provider. Sign off status: Pending * Provider: Jemma Sanchez MD Date: 02/16/2025 Generated for Joanie ny/Faxing/eTransmitting on: 0 02/18/2025 06:04 AM EDT
--- OUTSIDE RECORDS SUMMARY | 2025-02-17 04:00 | XMS_ITS ---
[facility] [place] Address [address] [place] [address] Care Team Providers Care Comb Capper Name Role Phone Margaret Webber Primary Care Provider Unavailab Shellie Simpson Unavailable [phone] Allergies Allergen (clinical drug ingredient) Drug/Non Drug [...] VISIT At Risk Footcare, Ingrown Nail, Foot pain Medications Medication SIG (Take, Route, Frequency, Duration) Notes Start Date End Date Status Myrbetriq Active EpiPen Active Estradiol Active Lyrica 75 MG 1 capsule Orally Onc e a day Active Methenamine Hippurate 1 GM 1 tablet Orally Twice a day Active CeleBREX 200 MG 1 capsule with food Orally Once a day Active amLODIPine Besylate 5 MG 1 tablet Orally Once a day Active Calcium Citrate + D3 Active Cetirizine HCl Activ e Dicyclomine HCl 10 MG 2 capsules Orally Three times a day; Duration: 30 day(s) Active Lyrica 50 MG Orally Twice a day Not-Taking Advair Diskus 250-50 MCG/DOSE 1 puff Inhalation Twice a day Not-Taking Incruse Ellipta 62.5 MCG/INH 1 puff Inhalation Once a day Not-Taking Metoprolol Succinate ER 50 MG 1 tablet Orally Once a day Not-Taking Methotrexate Not-Dexter ing Atropine Sulfate 1 tab Oral No t-Taking Lamisil Not-Taking Folic Acid Not- Vitamin B 12 Not- ing traMADol HCl 50 MG 1 tablet as needed Orally every 6 hrs Not-Taking Losartan Potassium 50 MG Orally Not-Taking Albuterol Sulfate 108 (90 Base) MCG/ACT 2 puffs as needed Inhalation every 6 hrs Not- Atorvastatin Calcium 20 MG 1 tablet Orally Once a day Not-Taking Fluticasone-Salmeterol 250-50 MCG/DOSE 1 puff Inhalation Twice a day Not-Taking amLODIPine Besylate 5 MG 1 tablet Orally Once a day Not-Taking Methotrexate Sodium 2.5 MG as directed Orally Not- Voltaren 1 % Transdermal Not-T aking Vitamin A Not-Taking Gabapentin Not- Meloxicam 15 MG 1 tablet Orally Once a day; Duration: 30 day(s) Not- ing Vitamin A 3 MG (77221 UT) TAKE ONE CAPSULE BY MOUTH EVERY DAY Oral; Duration: 90 Days Active Famotidine Not- Folic Acid Not- Triamcinolone Acetonide 55 MCG/ACT SPRAY ONE TO TWO SPRAYS IN EACH NOSTRIL DAILY Nasal; Duration: 30 Days Active Albuterol Sulfate HFA 108 (90 Base) MCG/ACT INHALE TWO PUFFS BY MOUTH EVERY 4 HOURS NEEDED Inhalation; Duration: 16 Days Active traZODone HCl 100 MG 1 tablet at bedtime Orally Once a day Active tiZANidine HCl 4 MG 1 tablet as needed Orally Three times a day Active Extra Depth Orthopedic Shoes (1 Pair) with Customized Heat Molded Multidensity Innersoles (3 Pair) as directed Dx: NIDDM/Polyneuropathy (E11.42), Hammertoe Foot Deformity (M20.41,M20.42), Preulcerative Skin Lesion(s) (L85.1 06/05/2023 Active Ammonium Lactate 12 % 1 application Exte rnally to affected areas of dry skin to feet except for between the toes Twice a day; Duration: 30 days Active Custom Orthotics as directed 08/05/2024 Active Omeprazole 40 MG 1 capsule Orally Onc e a day Active Vitamin C 1000 MG 1 tablet Orally Once a day Active Vitamin D Active Social History Tobacco Use: Social History Observation Description Date Details (start date - stop date) Never Smoker NA - NA Tobacco use other than smoking: Question Answer Notes Are you an other tobacco user? No Tobacco Control (Standard) Question Answer Notes Tobacco use: Nonsmoker Additional Findings: Tobacco non-user Current no nsmoker AUDIT-C (Standard) Question Answer Notes Did you have a drink containing alcohol in the p ast year? No Points 0 Interpretation Negative Problems Problem Type SNOMED Code ICD Code Onset Dates Problem Status W/U Status Risk Notes Problem Rheumatoid arthritis (55285105) Rheumatoid arthritis with positive rheumatoid factor, involving unspecified site (M05.9) Active confirmed Problem Acquired hammer toe of right foot (57168514072419 05) Hammer toe of right foot (M20.41) Active confirmed Problem Acquired hammer toe of left foot (17565533498703 03) Hammer toe of left foot (M20.42) Active confirmed Vital Signs Height 5ft 1in in 02/17/2025 Weight 155 lbs 02/17/2025 BMI 29.28 kg/m2 02/17/2025 Blood pressure systolic 130 mm Hg 02/18/20 Blood pressure diastolic 80 mm Hg 025 Procedures Procedure Date Ordered Date Performed Result Body Sit e 40624-Iedmksic Plate 02/17/2025 N/A 57317-HQAK SKIN LESIONS, OVER 4 02/17/2025 N/A U3576-QXCOKOIF DYSTROPHIC NAILS ANY # 02/17/2025 N/A Encounters Encounter Location Date Provider Diagnosis [facility] [place] [address] [place] [address] 02/17/2025 Shellie Black Type 2 diabetes mellitus with diabetic polyneuropathy E11.42 ; Ingrown nail L60.0 ; Metatarsalgia, right foot M77.41 ; Pain in right ankle and joints of right foot M25.571 ; Bursitis of intermetatarsal bursa of right foot M77.51 ; Rheumatoid arthritis with positive rheumatoid factor, involving unspecified site M05.9 ; Hammer toe of right foot M20.41 and Hammer toe of left foot M20.42 Assessments Encounter Date Diagnosis (ICD Code) Assessment Notes Treatment Notes Treatment Clinical Notes Section Notes 02/17/2025 Type 2 diabetes mellitus with diabetic polyneuropathy (ICD-10 - E11.42) 02/17/2025 Ingrown nail (ICD-10 - L60.0) 02/17/2025 Metatarsalgia, right foot (ICD-10 - M77.41) 02/17/2025 Pain in right ankle and joints of right foot (ICD-10 - M25.571) 02/17/2025 Bursitis of intermetatarsal bursa of right foot (ICD-10 - M77.51) 02/17/2025 Rheumatoid arthritis with positive rheumatoid factor, involving unspecified site (ICD-10 - M05.9) 02/17/2025 Hammer toe of right foot (ICD-10 - M20.41) 02/17/2025 Hammer toe of left foot (ICD-10 - M20.42) Plan Of Treatment Pending Test Test Name Order Date 23215-Hgnfvran Plate 02/17/2025 22315-QUJA SKIN LESIONS, OVER 4 02/18/20 J5731-IYBRTXOA DYSTROPHIC NAILS ANY # Next Appt Details Follow Up: 2 Months, Reason: Provider Name:Shellie Lawrence Bhanu , 04/25/2025 08:15:00 AM, [address] [place] [address], [phone], Provider Name:Shellie Lawrence Bhanu , 06/27/2025 08:00:00 AM, [address] [place] [address], [phone], Procedure Notes * Category Sub-Category Detail Notes [...] Motrin was recommended for pain or discomfort - 16113, DIABETES: Matricectomy deferred at this time due to diabetes risk Anesthesia , was deferred - KIM ROPATHY: patient has medically documented neuropathic condition affecting sensation Location , Lateral nail borde r, T5 Keratoma Treatment Parring or Cutting o f [...] instrumentation by the physician of record - 90990 Nail Reduction Nail Reduction (-27) Trimming o [...] G0127 Progress Notes * María SAWYER LDOB:[birth year] (74 yo F)Acc No.[id number]:02/17/2025 Progress Note Patient: Hyacinth TOBYSOURAVJemmaDAVID María Lutz Provider: Naz [place] DPM :1950 A ge:74 Y S ex:Female Date:02/17/2025 Address:[address] [place] [address], [facility] Pcp:Margaret Webber Subjective: * Chief Complaints: * A t Risk FootcareIngrown NailFoot pain * HPI: A t Risk footcare: Pt States Last PCP Visit: D ate 0 01/24/2025 F oot Pain: Location: B ottom, Forefoot, RIGHT. Duration: , several months. Course: , worse. Treatments: r est/alter normal daily activity- pt unable to wear new custom orthotics in her shoes due to pressure to the top of her toes- shoes are too tight ([place]). * ROS: G eneral/Constitutional: Nausea d enies. V omiting d enies. H tere Thirst d enies. L oss appetite d enies. C hills d enies. F atigue d enies.?Fever d enies. N ight Sweats d enies. U nexplained weight loss d enies. U nexplained weight gain d enies. H EENTM: Dentures a dmits. D izziness d enies. G lasses/contacts d enies. R etinopathy d enies. B lurred/double vision d enies. T MJ?denies. D ischarge/drainage d enies. I mplants d enies. S ore throat d enies. D ental implants d enies. H selam of hearing d enies. D ifficulty chewing/swallowing/speaking a dmits. N ose bleeds d enies. S ore mouth d enies. ? R espiratory: On Oxygen d enies. P neumonia/pleurisy d enies.?Bronchitis d enies. E mphysema d enies. C oughing d enies. C ough blood?denies. S hortness of breath d enies. W heezing d enies. C ardiovascular: Pacemaker d enies. M FOREMAN OR SUPERVISOR AND OPERATOR d enies. W PW d enies. C HF d enies. H eart attack d enies. S eptal defect d enies. R apid beat d enies. C hest pain d enies. A trial Fib. d enies. M urmur/Palpitations d enies. G astrointestinal: Hemorrhoids a dmits. S tomach/Abdominal pain a dmits. D ark blood stool d enies. I rritable bowel d enies. C onstipation d enies. D iarrhea a dmits. H ematology: Swelling a dmits. C lots d enies. V aricose Veins d enies. B ruising a dmits. B leeding problem d enies. G enitourinary: Blood urine d enies. F requent/Painfu/urination/bladder control a dmits. K idney stones d enies. I nfection (UTI) d enies. N ephropathy d enies. s ex trans dis (STD) d enies. P rostate d enies. M usculoskeletal: Hammertoes a dmits. B unions d enies. B ack Pain a dmits. M uscle Cramps/ Resting a dmits. M uscle cramps / walking d enies.?Generalized aches and pains d enies. W eakness d enies. I nteg.: Mast d enies. S cars d enies. C orns/calluses?, admits. I ngrown nails a dmits. P ainful nails a dmits. O pen Sores d enies. R ashes d enies. N eurologic: Difficulty sleeping a dmits. B rain disorder d enies. N umbness a dmits. B alance trouble d enies. C onfusion d enies. F ainting/blackouts d enies. T ingling a dmits. T remors d enies. * Medical History: * Surgical History: g all bladder 1995lumpectomy 1980umbilical hernia repair 2017deviated septum repair 1974hemorroid & fissure 1967gastric bypass 02/10/19Prolaps- moved bladder up 06/27/2020ystocele repair 08/07/2021ectocele repair 08/07/2021iopsy, bladder 04/29/2023stent implant 09/27/24roat procedure 02/16/25 * Hospitalization/Major Diagno stic Procedure: [facility]- Gastric Bypass Sx 02/10/19[facility]- Obstruction 10/12[facility]-Stomach pain ? IBS 1 night stay 09/2020 * Family History: M other: . F ather: . Pt states Family Hx unknown because she was adopted. * Social History: T obacco Use: T obacco use other than smoking A re you an other tobacco user? N o Tobacco Control (Standard) T obacco use: N onsmoker A dditional Findings: Tobacco non-user C urrent nonsmoker M iscellaneous: C affeine: yes, frequency:, 1-2 cups per day decaff tea. Children: yes, 2. Exercise: no. Marital status: single. 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 D rug/Alcohol: A RAYA-C (Standard) D id you have a drink containing alcohol in the past year? N o P oints 0 I nterpretation N egative * Medications: T akingCeleBREX 200 MG Capsule 1 capsule with food [...] for between the toes Twice a day Custom Orthotics as directed Triamcinolone Acetonide 55 MCG/ACT Aerosol SPRAY ONE TO TWO SPRAYS IN EACH NOSTRIL DAILY Nasal Albuterol Sulfate HFA 108 (90 Base) MCG/ACT Aerosol Solution INHALE TWO PUFFS BY MOUTH EVERY 4 HOURS NEEDED Inhalation Vitamin A 3 MG (81583 UT) Capsule TAKE ONE CAPSULE BY MOUTH EVERY DAY Oral Taking CeleBREX 200 MG Capsule 1 capsule [...] between the toes Twice a day Taking Custom Orthotics as directed Taking Triamcinolone Acetonide 55 MCG/ACT Aerosol SPRAY ONE TO TWO SPRAYS IN EACH NOSTRIL DAILY Nasal Taking Albuterol Sulfate HFA 108 (90 Base) MCG/ACT Aerosol Solution INHALE TWO PUFFS BY MOUTH EVERY 4 HOURS NEEDED Inhalation Taking Vitamin A 3 MG (97526 UT) Capsule TAKE ONE CAPSULE BY MOUTH EVERY DAY Oral Not-Taking/PRNFamotidine Folic Acid Methotrexate Sodium 2.5 MG [...] Activated 1 puff Inhalation Twice a day Not- Taking/PRN amLODIPine Besylate 5 MG Tablet 1 tablet [...] reviewed and reconciled with the patient * Allergies: H ydrochlorothiazideIronLactoseLisinoprilSertraline HClBactrimShellfish-derived ProductsShrimp (Diagnostic)yes[Allergies Verified] Objective: * Vitals: H t: 5ft 1in, Wt:155, BMI:29.28, Shoe size: 9-9.5, BP:130/80mm Hg, Ht-cm: 154.94 cm, Wt-k.31 kg. * P ast Orders: L ab:HEMOGLOBIN A1C (GLYCOHEMOGLOBIN) (Order Date - 01/24/2025) (Collection Date & Time - 01/25/2025 07:57 AM) Value Reference Range HEMOGLOBIN A1C % (HH) 5.6 * Examination: O phthalmology Referral: DIABETES EYE EXAM P rocedure Performed: Y raleigh D ate of Exam Performed 1 05/26/2023 F indings of Diabetic Eye Exam: n o retinopathy G eneral Examination: GENERAL APPEARANCE: R monique a pleasant, alert, well nourished, well-developed, well hydrated individual, who demonstrates proper attention to hygiene/body habitus, and is in no acute distress, Pt serves as own historian for office visit today. ORIENTED: p erson, place, and time. N eurological: SENSORY: N eurological exam demonstrates inability for patient to distinguish sharp/dull pin prick discrimination, reduced, light touch sensation, reduced, vibration sensation,reduced, proprioception identification, in a stocking fashion, B/L. Test with 5.07 [place]-Ace monofilament performed at plantar aspects of 5 varied sites per foot shows sensation absent in at least 2 locations, B/L, , Pt relates, increased anesthesia, forefoot B/L. ? O rthopedic: GAIT ABNORMALITY: a ntalgic. DIGITAL DEFORMITIES: D igital contracture, PIPJ, 2-5 B/L, incompl-reducible with WB, or to push-up test, no over, nor underlapping, with evidence of shoe producing skin irritation. MPJ PATHOLOGY: Pain, swelling, and inflammation to [id number], MPJ(s), RIGHT, No MPJ pain with ROM, [ - ] Ecchymosis . V ascular: DP PULSES (B): 2/4, B/L. PT PULSES (B): 2/4, B/L. D ermatologic: SKIN FINDINGS: , Skin exam reveals Keratotic lesion(s) located at, IPJ, TA, T5,Plantar Heel(s), B/L, SUB MTH (s), 2, B/L ,. N ails: NAILS are: E longated, overgrown, dystrophic, T1 T2, T3, T4, T7,T8, T9,. I ngrown Nail: INSPECTION: R eveals nail incurvation, pain on palpation, groove hypertrophy, Lateral nail border, T5. Assessment: * Assessment: 1. T ype 2 diabetes mellitus with diabetic polyneuropathy - E11.42 (Primary) 2 . I ngrown nail - L60.0 S pecify :Lateral T5 3 . M etatarsalgia, right foot - M77.41 S pecify :Acute problem, Uncomplicated (3) 4 . P ain in right ankle and joints of right foot - M25.571 5 . B ursitis of intermetatarsal bursa of right foot - M77.51 6 . R heumatoid arthritis with positive rheumatoid factor, involving unspecified site - M05.9 7 . Hammer toe of right foot - M20.41 S pecify :Chronic problem, Worse (4) 8 . H ammer toe of left foot - M20.42 Plan: * Treatment: 2. I ngrown nail P rocedure: 99368-Oukkqzlf Plate * Procedures: K eratoma Treatment: Parring or Cutting of Benign Hyperkeratotic Lesion(s) ( -57) More than 4 Lesions - Due to [...] and described in the exam ( IPJ, T A, T 5,Plantar Heel(s), B /L, S UB MTH (s), 2 , B /L), were pared, and/or cut utilizing a sterile 15 blade, tissue nippers, and/or power dremel instrumentation by the physician of record - 41419. N ail Avulsion: Location , Lateral nail border, T5. Anesthesia , was deferred - NEUROPATHY: patient has medically documented neuropathic condition affecting sensation. Procedure A fine sterile elevator was placed between the [...] Motrin was recommended for pain or discomfort - 80890, DIABETES: Matricectomy deferred at this time due to diabetes risk. N ail Reduction: Nail Reduction ( -27) Trimming of all dystrophic nails - Due [...] or bed tissue - G0127.? * Procedure Codes: 1 1057 TRIM SKIN LESIONS, OVER 4, Modifiers: XS 61510 Avulsion Plate, Modifiers: T5 G0127 TRIMMING DYSTROPHIC NAILS ANY #, Modifiers: XS * Preventive Medicine: Counseling: D iscussion: - 13: Office or other outpatient visit for the evaluation and management of an established patient, which required a medically appropriate history and/or examination and LOW level of DECISION MAKING for: 1 STABLE ACUTE UNCOMPLICATED PROBLEM, 2 OR MORE MINOR PROBLEMS, OR 1 STABLE CHRONIC PROBLEM, THAT POSE(S) A LOW RISK FOR MORBIDITY/MORTALITY. The visit on the day of the [...] have encouraged the patient to call the office. D igital Treatment: R ecomm, rest, ice, proper shoegear, padding, orthotics, anti-inflammatories or tylenol as tolerated, topical analgesics, cortisone injections. M etatarsalgea: D iscussed other tx options for the patients condition, the patient wishes to continue with the present plan for their condition. O rthotics: E xamination of orthotics and sneakers- we elected to send orthotics back and see if we can thim out the forefoot to allow more space for the toes. Screening/Special Tests: F all Risk Screening: N o falls in the past year F ALLS: Screening for Future Fall Risk Have you had two or more falls in the past year? N o Have you had any falls with injury in the past year? N o * Follow Up: 2 Months * Images: * Sign off status: Completed true * Provider: Naz [place] DPM Date: 0 02/17/2025 Generated for Joanie ny/Florentino/Rowan on: 02/18/2025 06:04 AM EDT History and Physical Notes * HPI (History of Present Illness) Category Sub-Category Detail Notes Category Not es At Risk footcare Pt States Last PCP Visit: Date: 5 Foot Pain Location: Bottom, Forefoot, RIGHT Duration: , several months Course: , worse Treatments: rest/alter normal da kathryn activity- pt unable to wear new custom orthotics in her shoes due to pressure to the top of her toes- shoes are too tight ([place]) Examination Category Sub-Category Detail Notes Category Not es Ingrown Nail INSPECTION: Reveals nail inc urvation, pain on palpation, groove hypertrophy, Lateral nail border, T5 Neurological SENSORY: Neurological exa m demonstrates inability for patient to distinguish sharp/dull pin prick discrimination, reduced, light touch sensation, reduced, vibration sensation,reduced, proprioception identification, in a stocking fashion, B/L. Test with 5.07 Fair[place]-Ace monofilament performed at plantar aspects of 5 varied sites per foot shows sensation absent in at least 2 locations, B/L, , Pt relates, increased anesthesia, forefoot B/L TINEL'S COMPRESSION: Dermatologic SKIN FINDINGS: , Skin exam reve als Keratotic lesion(s) located at, IPJ, TA, T5,Plantar Heel(s), B/L, SUB MTH (s), 2, B/L , Orthopedic GAIT ABNORMALITY: antalgic DIGITAL DEFORMITIES: Digital contracture , PIPJ, 2-5 B/L, incompl-reducible with WB, or to push-up test, no over, nor underlapping, with evidence of shoe producing skin irritation MPJ PATHOLOGY: Pain, swelling, and inflammation to caovpim2ul, MPJ(s), RIGHT, No MPJ pain with ROM, [ - ] Ecchymosis General Examination GENERAL APPEARANCE: Reveals a pleasant, alert, well nourished, well-developed, well hydrated individual, who demonstrates proper attention to hygiene/body habitus, and is in no acute distress, Pt serves as own historian for office visit today ORIENTED: person, place, and t keena Ophthalmology Referral DIABETES EYE EXAM Procedure Perform ed:: Yes Date of Exam Performed: 03/26/2024 Findings of Diabetic Eye Exam:: no retin opathy Vascular DP PULSES (B): 2/4, B/L PT PULSES (B): 2/4, B/L Nails NAILS are: Elongated, overgrown, dystro phic, T1 T2, T3, T4, T7,T8, T9,
--- OUTSIDE RECORDS SUMMARY | 2025-02-18 06:04 | XMS_ITS ---
Author Name Kong JV, MS. Hawa Harkins Address [address] [place] [address] Phone [phone] [facility] Care Team Providers Care Returned Item Clerk Name Role Phone Hawa Triana Unavailable [phone] Unavailable Unavailable Unavailable Vanstee, Bernie Unavailable [phone] Po, Lorenver Unavailable [phone] Reason for Referral Not Available Allergies, adverse [...] MUSCLE SPASM 2021-07-10 No Data Available Ipratropium Bellflower 0.06 % Solution USE 1 SPRAY IN EACH NOSTRIL THREE TIMES DAILY NEEDED FOR RUNNY NOSE 2021-09-03 No Data Available Diclofenac Sodium 1 % Gel No Data Available 2021-04-18 No Data Available EPINEPHrine 0.3 mg/0.3ML Solution Auto-injector INJECT 1 PEN IN THE MUSCLE DIRECTED FOR ANAPHYLAXIS 2021-09-03 No Data Available Vitamin A 3 mg (38652 UT) Cap TAKE TWO ( 2) CAPSULES [...] 2022-03-06 No Data Available VITAMIN A 3 MG(28424 UT) CAPS TAKE ONE C APSULE BY [...] Assessment - NO pain present (1126F) [facility] [place] Pain Assessment - NO pain present (1126F) [facility] [place] Pain Assessment - NO pain present (1126F) [facility] [place] Pain Assessment - NO pain present (1126F) [facility] [place] Pain Assessment - NO pain present (1126F) [facility] [place] Pain Assessment - NO pain present (1126F) [facility] [place] Pain Assessment - NO pain present (1126F) [facility] [place] Pain Assessment - NO pain present (1126F) [facility] [place] Pain Assessment - NO pain present (1126F) [facility] [place]20[place] Irritable bowel syndrome wit h diarrheaType 2 diabetes mellitus with diabetic neuropathy, unspecifiedInsomnia, unspecifiedGastro-esophageal reflux disease without esophagitisVitamin a deficiency, unspecifiedVitamin D deficiency, unspecifiedComplex regional pain syndrome I, unspecifiedUnspecified osteoarthritis, unspecified siteOveractive bladderBariatric surgery status No Data Available [facility] [place]/2022 Urinary tract infection, sit e not specified Vital Signs Date of Collection Vitals 2022-03-07 08:29:34 Height - 154.94 cmWe ight - 61.69 kgBody Mass Index (BMI) - 25.7 kg/m2BP Diastolic - 82.0 mm[Hg]BP Systolic - 135.0 mm[Hg]Respiratory Rate - 52.0 /min Social History Social History Social History Observation Description Effec tive Time Current Smoking Status Former smoker 2025-01-25 6 Sex Female History of Procedures Procedures Service [...] 95 for video, modifier 93 for phone 21811 2022-03-07 No Data Available No Data Available No Data Available 36729 2022-04-24 No Data Available No Data Available Functional Status Functional Category Effective Dates Uses Walker or Cane - has a w/c but does n't have to use 2022-03-07 uses shower chair 2022-03-07 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 [facility] or disease [...]
--- OUTSIDE RECORDS SUMMARY | 2025-02-18 06:05 | XMS_ITS | Clinical Summary ---
Author Organization [facility] Address [address] [place] [phone] Phone Care Team Providers Care Rn Provider Relations Name Role Phone Dwight Nicole MD Primary Care Provider [phone] Social History Tobacco Use Types Packs/Day Years [...] topic Medical Devices Not on file Insurance [facility] DUAL MEDICARE REPLACEMENT MEDICARE PART A & B [facility] DUAL MEDICARE REPLACEMENT [place] [id number] MEDICARE PART A & B [facility] DUAL MEDICARE REPLACEMENT MEDICARE PART A & B [facility] DUAL MEDICARE REPLACEMENT MEDICARE PART A & B [facility] DUAL MEDICARE REPLACEMENT MEDICARE PART A & B [facility] DUAL MEDICARE REPLACEMENT MEDICARE PART A & B [facility] DUAL MEDICARE REPLACEMENT MEDICARE PART A & B [facility] DUAL MEDICARE REPLACEMENT MEDICARE PART A & B [facility] DUAL MEDICARE REPLACEMENT MEDICARE PART A & B Care Teams Rn Provider Relations Relationship Specialty Start Date End Date Dwight Nicole MD [address] [place] [address] Drive [address] [place] [phone] PCP - General 03/02/21 Additional Source Comments The information contained in this document represents components of the legal health record. It is not the complete legal health record.[facility]
--- OUTSIDE RECORDS SUMMARY | 2025-02-18 06:05 | XMS_ITS | Patient Health Record ---
Author Organization [facility] Address [address] [place] [address] Care Team Providers Care Beading Sawyer Name Role Phone Kittymarilynn Margaret Primary Care Provider UnavailJordan Ortega Unavailable [phone] Allergies Allergen (clinical drug ingredient) Drug/Non Drug Allergy documented on EMR Reaction Allergy Type Onset Date Status ferrous sulfate Iron Unknown Drug Allergy A ctive hydrochlorothiazide Hydrochlorothiazide Unknown Drug Aller gy Active codeine Codeine Sulfate Unknown Drug Allergy A ctive vaginal creams (uncoded) Unknown Allergy Active Sulfa Unknown Drug Allergy Active sertraline Zoloft Unknown Drug Allergy Active Sertraline HCl Unknown Drug Allergy Ac tive lisinopril Lisinopril Unknown Drug Allergy Activ e Lactose Unknown Drug Allergy Active Results Component Value Reference Range Notes Pathology Reviewed date:07/04/2024 02:01:29 PM Interpretation: Performing Lab:[address] [address] Notes/Report: Pathology Reviewed date:02/15/2025 06:33:18 PM Interpretation: Performing Lab:[facility], [address] [place] [address] Notes/Report: Reason For Referral No Information Medications [...] day every morning for 30 days Active DanyelleAna Rosa Alfonsoio - In Vitro for 30 Active amLODIPine Besylate 5 MG take 1 tablet b y mouth once daily Orally Active Ipratropium [place] 0.02 % 2.5 mL as nee ded Inhalation every 8 hrs Active Dicyclomine HCl 10 MG TAKE 1-2 CAPSULES BY MOUTH EVERY 6 HOURS NEEDED FOR ABDOMINAL CRAMPS, DISCOMFORT, BLOATING OR DIARRHEA for 12 Active Budesonide 3 MG 3 capsules daily for 2 months and then 2 capsules daily Orally daily for 30 days 02/16/2025 Active Omeprazole 40 MG 1 Orally Once a day every morning for 30 days 02/16/2025 Active Turmeric 500 MG as directed Orally [...] Problem Status W/U Status Risk Notes Problem 469669660 Irritable bowel syndrome with diarrhea (K58.0) Active confirmed Problem Pharyngeal dysphagia (777274743516 05) Dysphagia, pharyngoesophageal phase (R13.14) Active confirmed Problem Dysphagia (30860399) Dysphagia (R13.10) Active confirmed Problem 002746101 Gastroesophageal reflux disease without esophagitis (K21.9) Active confirmed Problem Esophageal stricture (61391401) Esophageal stricture (K22.2) Active confirmed Problem 81215984 Pharyngoesophage al dysphagia (R13.14) Active confirmed Problem Barium swallow abnormal (498900723) Abnormal barium swallow (R93.3) Active confirmed Problem Schatzki's ring (99903789) Schatzki's ring (K22.2) Active confirmed Problem 61335214 Esophageal dysph agia (R13.10) Active confirmed Problem Benign esophageal stricture (570006473) Benign esophageal stricture (K22.2) Active confirmed Procedures Procedure Date Ordered Date Performed Result Body Sit e UPPER GI ENDOSCOPY BALLOOON DILATION OF ESOPH 02/10/2025 N/A Encounters Encounter Location Date Provider Diagnosis [facility] Outpatient [address] [place] [id number] 02/23/2024 Jordan Sanchez Esophageal stricture K22.2 ; Hiatal hernia K44.9 ; Dysphagia R13.[address] scan, esophagus R93.3 [facility] Outpatient [address] [place] [id number] 07/05/2024 Jordan Sanchez Schatzki's ring K22. 2 and Dysphagia R13.10 [facility] Outpatient [address], [place] [phone] 02/16/2025 Jordan Sanchez [facility] [address] [place] [phone] 02/24/2024 Jordan Sanchez [facility] [address] [place] [phone] 02/26/2024 Jordan Sanchez Dysphagia R13.10 and Benign esophageal stricture K22.2 [facility] [address] [place] [phone] 03/01/2024 Jordan Sanchez [facility] [address] [place] [phone] 02/02/2025 Jordan Sanchez [facility] [address] [place] [phone] 02/10/2025 Jordan Sanchez Dysphagia, pharyngoesophageal phase R13.14 [facility] [address] [place] [phone] 02/15/2025 Jordan Sanchez [facility] [address] [place] [phone] 02/16/2025 Jordan Sanchez Assessments Encounter Date Diagnosis (ICD Code) Assessment Notes Treatment Notes Treatment Clinical Notes Section Notes 02/23/2024 Esophageal stricture (ICD-10 - K22.2) 02/23/2024 Hiatal hernia (ICD-1 0 - K44.9) 07/05/2024 Dysphagia (ICD-10 - R13.10) 07/05/2024 Schatzki's ring (ICD-10 - K22.2) 02/26/2024 Dysphagia (ICD-10 - R13.10) 02/26/2024 Benign esophageal stricture (ICD-10 - K22.2) 02/10/2025 Dysphagia, pharyngoesophageal phase (ICD-10 - R13.14) 02/23/2024 Dysphagia (ICD-10 - R13.10) 02/23/[address] scan, esophagus (ICD-10 - R93.3) Plan Of Treatment Pending Test Test Name Order Date UPPER GI ENDOSCOPY BALLOOON DILATION OF ESOPH 02/10/2025 ENDOMYSIAL IGA 08/27/2012 TRANSGLUTAMINASE AB IGA 08/27/2012 TRANSGLUTAMINASE AB IGG 08/27/2012 XR BARIUM SWALLOW-ESOPHAGUS 01/05/2024 XR BARIUM SWALLOW-ESOPHAGUS 04/16/2016 XR BARIUM SWALLOW, MODIFIED VIDEO 2012 [place] barium swallow with air 01/14/2024 Future Test Test Name Order Date UPPER GI ENDOSCOPY BALLOOON DILATION OF ESOPH 12/16/2012 COLONOSCOPY 12/16/2012 UPPER GI ENDOSCOPY BALLOOON DILATION OF ESOPH 10/02/2018 UPPER GI ENDOSCOPY BALLOOON DILATION OF ESOPH 01/23/2024 UPPER GI ENDOSCOPY BALLOOON DILATION OF ESOPH 02/27/2024 Next Appt Details Provider Name:Jordan Sanchez , 06/15/2025 01:00:00 PM, [address], [address], [place], [address], Insurance Providers Payer Name Payer Address Payer Phone Subscriber Number Group Number Insured Name Patient Relationship to Insured Coverage Start Date Coverage End Date [facility] [address] Attn Claims ELLEN Beckwith [id number] HEATH MOHAN Self - patient is the insured MEDICAID OF [facility] [address] [place] [address] [id number] HEATH MOHAN Self - patient is the [...] her last colonoscopy being in 2008 Denies [place],CVA,renal disease Intermittent diarrhea, felt to be probably related to IBS-previous trials of cholestyramine were not helpful, nor did she like the taste--biopsies were negative for celiac disease Anxiety Asthma Arthritis Hospitalized in 10/2012 for c hest pain-neg. [place]-had an ETT that was reportedly negative Upper [...]
--- OUTSIDE RECORDS SUMMARY | 2025-02-18 06:05 | XMS_ITS | Patient Health Record ---
Author Organization [facility] Address [address] [place] [address] Care Team Providers Care Security Systems Manager Name Role Phone Kittymarilynn Margaret Primary Care Provider Unavailab brittanie Shellie Drummond Unavailable [phone] Allergies Allergen (clinical drug ingredient) Drug/Non Drug [...] (HH) 5.6 HEMOGLOBIN A1C (GLYCOHEMOGLO BIN) Reviewed date:02/17/2025 07:57:45 AM Interpretation: Performing Lab: Notes/Report: HEMOGLOBIN A1C % (HH) 5.6 Reason For Referral No Information Medications Medication SIG (Take, Route, Frequency, Duration) Notes Start Date End Date Status amLODIPine Besylate 5 MG 1 tablet Orally Once a day Not-Taking Losartan Potassium 50 MG Orally Not-Taking Omeprazole 40 MG 1 capsule Orally Onc e a day Active Albuterol Sulfate 108 (90 Base) MCG/ACT 2 puffs as needed Inhalation every 6 hrs Not-Takin g Vitamin C 1000 MG 1 tablet Orally Once a day Active Atropine Sulfate 1 tab Oral No t-Taking Vitamin D Active Lamisil Not-Taking traZODone HCl 100 MG 1 tablet at bedtime Orally Once a day Active Folic Acid Not-Takin g tiZANidine HCl 4 MG 1 tablet as needed Orally Three times a day Active Vitamin B 12 Not-Dexter ing Extra Depth Orthopedic Shoes (1 Pair) with Customized Heat Molded Multidensity Innersoles (3 Pair) as directed Dx: NIDDM/Polyneuropathy (E11.42), Hammertoe Foot Deformity (M20.41,M20.42), Preulcerative Skin Lesion(s) (L85.1 06/05/2023 Active traMADol HCl 50 MG 1 tablet as needed Orally every 6 hrs Not-Taking Ammonium Lactate 12 % 1 application Exte rnally to affected areas of dry skin to feet except for between the toes Twice a day; Duration: 30 days Active Advair Diskus 250-50 MCG/DOSE 1 puff Inhalation Twice a day Not-Taking Custom Orthotics as directed 08/05/2024 Active Incruse Ellipta 62.5 MCG/INH 1 puff Inhalation Once a day Not-Taking Triamcinolone Acetonide 55 MCG/ACT SPRAY ONE TO TWO SPRAYS IN EACH NOSTRIL DAILY Nasal; Duration: 30 Days Active Albuterol Sulfate HFA 108 (90 Base) MCG/ACT INHALE TWO PUFFS BY MOUTH EVERY 4 HOURS NEEDED Inhalation; Duration: 16 Days Active CeleBREX 200 MG 1 capsule with food Orally Once a day Active amLODIPine Besylate 5 MG 1 tablet Orally Once a day Active Calcium Citrate + D3 Active Cetirizine HCl Activ e Dicyclomine HCl 10 MG 2 capsules Orally Three times a day; Duration: 30 day(s) Active EpiPen Active Estradiol Active Lyrica 75 MG 1 capsule Orally Onc e a day Active Metoprolol Succinate ER 50 MG 1 tablet Orally Once a day Not-Taking Methenamine Hippurate 1 GM 1 tablet Orally Twice a day Active Methotrexate Not-Dexter ing Myrbetriq Active Vitamin A 3 MG (73142 UT) TAKE ONE CAPSULE BY MOUTH EVERY DAY Oral; Duration: 90 Days Active Lyrica 50 MG Orally Twice a day Not-Taking Famotidine Not-Takin g Folic Acid Not-Takin g Methotrexate Sodium 2.5 MG as directed Orally Not-Takin g Voltaren 1 % Transdermal Not-T aking Vitamin A Not-Taking Gabapentin Not-Takin g Meloxicam 15 MG 1 tablet Orally Once a day; Duration: 30 day(s) Not-Dexter ing Atorvastatin Calcium 20 MG 1 tablet Orally Once a day Not-Taking Fluticasone-Salmeterol 250-50 MCG/DOSE 1 puff Inhalation Twice a day Not-Taking Immunizations Vaccine Route [...] stop date) Never Smoker NA - NA Alcohol Screen Question Answer Notes Did you [...] Polyneuropathy due to type 2 diabetes mellitus (961485832) Type 2 diabetes mellitus with diabetic polyneuropathy (E11.42) Active confirmed Problem Acquired hammer toe of right foot (0543180009607432 ) Hammer toe of right foot (M20.41) Active confirmed Problem Acquired hammer toe of left foot (9681040242680153 ) Hammer toe of left foot (M20.42) Active confirmed Problem Rheumatoid arthritis (63556815) Rheumatoid arthritis with positive rheumatoid factor, involving unspecified site (M05.9) Active confirmed Vital Signs Blood pressure diastolic 80 mm Hg 02/17/2025 Height 5ft 1in in 02/17/2025 Blood pressure systolic 130 mm Hg 02/17/2025 Weight 155 lbs 02/17/2025 BMI 29.28 kg/m2 02/17/2025 Procedures Procedure Date Ordered Date Performed Result Body Sit e 85241-EPNF SKIN LESIONS, OVER 4 03/19/2024 N/A U1966-VGVWDBJS DYSTROPHIC NAILS ANY # 03/19/2024 N/A 29804-Tfabvmqx Plate 05/27/2024 N/A 54184-XKJF SKIN LESIONS, OVER 4 05/27/2024 N/A R5527-LJBZBISM DYSTROPHIC NAILS ANY # 05/27/2024 N/A 70383-RPUF SKIN LESIONS, OVER 4 08/05/2024 N/A S3874-MEGIYBFB DYSTROPHIC NAILS ANY # 08/05/2024 N/A 04383-IWRU SKIN LESIONS, OVER 4 10/14/2024 N/A M2240-KWIHANBY DYSTROPHIC NAILS ANY # 10/14/2024 N/A 36050-LFVP SKIN LESIONS, OVER 4 12/16/2024 N/A Z2309-XDBMFKYY DYSTROPHIC NAILS ANY # 12/16/2024 N/A 29476-Kkshigdf Plate 02/17/2025 N/A 16162-YRKW SKIN LESIONS, OVER 4 02/17/2025 N/A G7743-UHYURWCI DYSTROPHIC NAILS ANY # 02/17/2025 N/A Encounters Encounter Location Date Provider Diagnosis [facility] [address] [place] [address] 03/19/2024 Shellie Black Type 2 diabetes mellitus with [facility] [address] [facility]/27/[facility]24 Shellie Black Pain in right foot M79.671 ; Metatarsalgia, right foot M77.41 ; Type 2 diabetes mellitus with diabetic polyneuropathy E11.42 ; Ingrown nail L60.0 ; Pain in right ankle and joints of right foot M25.571 ; Bursitis of intermetatarsal bursa of right foot M77.51 and Xerosis of skin L85.[address] [address] 08/05/2024 Shellie Black Pain in right foot M79.671 ; Metatarsalgia, right foot M77.41 ; Type 2 diabetes mellitus with diabetic polyneuropathy E11.42 ; Pain in right ankle and joints of right foot M25.571 ; Bursitis of intermetatarsal bursa of right foot M77.51 ; Xerosis of skin L85.3 and Rheumatoid arthritis with positive rheumatoid factor, involving unspecified site M05.[address] [address] 10/14/2024 Shellie Black Metatarsalgia, right foot M77.41 ; Pain in right foot M79.671 ; Type 2 diabetes mellitus with diabetic polyneuropathy E11.42 ; Pain in right ankle and joints of right foot M25.571 ; Bursitis of intermetatarsal bursa of right foot M77.51 and Rheumatoid arthritis with positive rheumatoid factor, involving unspecified site M05.[address] [address] 12/16/2024 Shellie Black Type 2 diabetes mellitus with diabetic polyneuropathy E11.[address] [address] 02/17/2025 Shellie Black Type 2 diabetes mellitus [...] and Hammer toe of left foot M20.[address] [address] 02/17/2025 Shelliechristie Drummond [address] [address] 05/27/2024 Shellie Black [address] [address] 08/19/2024 Shellie Black Assessments Encounter Date Diagnosis (ICD [...] with diabetic polyneuropathy (ICD-10 - E11.42) 02/17/2025 Type 2 diabetes mellitus with diabetic polyneuropathy (ICD-10 - E11.42) 02/17/2025 Ingrown nail (ICD-10 - L60.0) 02/17/2025 Metatarsalgia, right foot (ICD-10 - M77.41) 10/14/2024 Type 2 diabetes mellitus with diabetic [...] of right foot (ICD-10 - M25.571) 02/17/2025 Pain in right ankle and joints of right foot (ICD-10 - M25.571) 10/14/2024 Bursitis of intermetatarsal bursa of right foot (ICD-10 - M77.51) 02/17/2025 Bursitis of intermetatarsal bursa of right foot (ICD-10 - M77.51) 08/05/2024 Bursitis of intermetatarsal bursa of right foot (ICD-10 - M77.51) 05/27/2024 Pain in right ankle and joints of right foot (ICD-10 - M25.571) 05/27/2024 Bursitis of intermetatarsal bursa of right foot (ICD-10 - M77.51) 08/05/2024 Xerosis of skin (ICD-10 - L85.3) 02/17/2025 Rheumatoid arthritis with positive rheumatoid factor, involving unspecified site (ICD-10 - M05.9) 10/14/2024 Rheumatoid arthritis with positive rheumatoid factor, involving unspecified site (ICD-10 - M05.9) 02/17/2025 Hammer toe of right foot (ICD-10 - M20.41) 08/05/2024 Rheumatoid arthritis with positive rheumatoid factor, involving unspecified site (ICD-10 - M05.9) 05/27/2024 Xerosis of skin (ICD-10 - L85.3) 02/17/2025 Hammer toe of left foot (ICD-10 - M20.42) Plan Of Treatment Pending Test Test Name Order Date 66689-YDHIZWZ NAIL, 1-09/15/2017 67684-XIYKFTB NAIL, -03/19/2018 65578-FTITUGE NAIL, -5 01/08/2018 79168-ACNDSSB NAIL, -5 09/10/2018 58533-YPIKATJ NAIL, -12/14/2018 53153-YVWAZVZ NAIL, -5 03/25/2019 60258-BREQJRN NAIL, -06/24/2019 27379-PTGQXGI NAIL, -11/11/2019 35783-FGOUZSH NAIL, -01/20/2020 10113-PLDFUDH NAIL, -5 03/30/2020 68706-ZRRSLDQ NAIL, -07/13/2020 62172-LLQWULA NAIL, -09/14/2020 94142-DPGKNHW NAIL, -5 01/25/2021 69177-Cdavndqt Plate 11/16/2020 83509-Cnxohulg Plate 09/14/2020 95953-Qmpfavcv Plate 03/30/2020 62008-Agcswmqy Plate 04/30/2021 46085-Vzgbtebf Plate 07/12/2021 32803-Quvjzqjj Plate 09/24/2021 34886-Ormbabww Plate 01/20/2020 12389-Swirdfhk Plate 11/11/2019 03091-Fbpprxlq Plate 08/01/2022 32870-Rhftmoeb Plate 08/07/2023 74815-Bbehvrvu Plate 05/27/2024 67044-Onzxhocq Plate 02/17/2025 31298-Oyokazsq Plate Each Additional 00969-Rffwhoqb Plate Each Additional 32700-Bzlygbcb Plate Each Additional 09/2019 43374-Xjyvhbew Plate Each Additional 32361-Zwlblneq Plate Each Additional 30585- Debride <25 sq cm 10/18/2021 77332- Debride <25 sq cm 09/24/2021 27033 I&D ABSCESS- SIMPLE,SINGLE 021 89729 I&D ABSCESS- SIMPLE,SINGLE 022 35962 I&D ABSCESS- SIMPLE,SINGLE 018 26262-NNRS SKIN LESIONS, OVER 4 02/18/20 42065-WLAP SKIN LESIONS, OVER 4 05/27/19 78706-WJZW SKIN LESIONS, OVER 4 08/06/19 39589-WWGT SKIN LESIONS, OVER 4 10/15/19 43266-PTBW SKIN LESIONS, OVER 4 12/17/19 07250-OVOK SKIN LESIONS, OVER 4 03/19/20 22205-ZSHJ SKIN LESIONS, 2 TO 4 11/13/19 28628-ERNZ SKIN LESIONS, 2 TO 4 08/02/19 48730-UDTJ SKIN LESIONS, 2 TO 4 08/07/19 71250-NKUW SKIN LESIONS, 2 TO 4 12/13/19 42461-DFFU SKIN LESIONS, 2 TO 4 02/25/20 10016-LOQM SKIN LESIONS, 2 TO 4 06/05/19 95750-CAIK SKIN LESIONS, 2 TO 4 09/11/19 44978-ENZK SKIN LESIONS, 2 TO 4 01/09/20 42522-UOEK SKIN LESIONS, 2 TO 4 09/16/19 06973-QXPF SKIN LESIONS, 2 TO 4 03/25/20 19 74353-AOLJ SKIN LESIONS, 2 TO 4 12/15/19 95055-FBLQ SKIN LESIONS, 2 TO 4 03/19/20 04622-FFIX SKIN LESIONS, 2 TO 4 01/20/20 08563-AZAQ SKIN LESIONS, 2 TO 4 11/05/20 20 12839-AKLJ SKIN LESIONS, 2 TO 4 11/11/19 20 97104-IMOL SKIN LESIONS, 2 TO 4 06/24/19 02411-WWSS SKIN LESIONS, 2 TO 4 12/18/19 18366-RXZN SKIN LESIONS, 2 TO 4 02/29/20 02092-KECD SKIN LESIONS, 2 TO 4 07/12/19 81739-ZSPW SKIN LESIONS, 2 TO 4 09/25/19 33359-PXVW SKIN LESIONS, 2 TO 4 04/30/20 21 45298-NMJK SKIN LESIONS, 2 TO 4 01/26/20 94337-OZJU SKIN LESIONS, 2 TO 4 07/13/19 21 47104-CMDT SKIN LESIONS, 2 TO 4 09/15/19 87534-LKEV SKIN LESIONS, 2 TO 4 11/17/19 21 06043-Rjan. Subungual Hematoma 2 64413-Hzab. Subungual Hematoma 9 E1697-UCTQGIHB DYSTROPHIC NAILS ANY # Q6110-BMAQNGMB DYSTROPHIC NAILS ANY # B4000-WALGFEGJ DYSTROPHIC NAILS ANY # O4853-ULVKAUMR DYSTROPHIC NAILS ANY # A3858-KIZLKMGE DYSTROPHIC NAILS ANY # B5700-OXMWCMLB DYSTROPHIC NAILS ANY # W3041-ZQGORFWK DYSTROPHIC NAILS ANY # J5028-QIHUZUGM DYSTROPHIC NAILS ANY # W9077-BIXVGANO DYSTROPHIC NAILS ANY # U7269-JEESCPFM DYSTROPHIC NAILS ANY # Y8873-ZWEUUGAP DYSTROPHIC NAILS ANY # H1990-TLWWUJGD DYSTROPHIC NAILS ANY # N3403-DQVMZUBT DYSTROPHIC NAILS ANY # U7689-EYSTDBCY DYSTROPHIC NAILS ANY # J0417-SSGISDZT DYSTROPHIC NAILS ANY # L9392-KDAPVNRY DYSTROPHIC NAILS ANY # C5357-DGXZTYID DYSTROPHIC NAILS ANY # W2566-XEAPGHYF DYSTROPHIC NAILS ANY # I0012-JGVIPVGT DYSTROPHIC NAILS ANY # F3110-FICMOKUU DYSTROPHIC NAILS ANY # L8147-VZVVPPVQ DYSTROPHIC NAILS ANY # Z9096-JCEOABTF DYSTROPHIC NAILS ANY # E7173-MHNAEKCA DYSTROPHIC NAILS ANY # Q6511-EGUGBWZO DYSTROPHIC NAILS ANY # N3637-GOXLATZK DYSTROPHIC NAILS ANY # S2710-XMLFLNUG DYSTROPHIC NAILS ANY # B6666-RIEXQZRG DYSTROPHIC NAILS ANY # L4508-BTCNIRNW DYSTROPHIC NAILS ANY # H4613-ZABLMBUL DYSTROPHIC NAILS ANY # S8414-LQERQCTN DYSTROPHIC NAILS ANY # F4881-FCIHXKHO DYSTROPHIC NAILS ANY # Next Appt Details Provider Name:Shellie Drummond , 04/25/2025 08:15:00 AM, [address] [place] [address], [phone], Provider Name:Shellie Drummond , 06/27/2025 08:00:00 AM, [address] [place] [address], [phone], Insurance Providers Payer Name Payer Address Payer Phone Subscriber Number Group Number Insured Name Patient Relationship to Insured Coverage Start Date Coverage End Date [facility] SCO Claims [address] [facility] ELLEN Beckwith [id number] BalmildredMaría newton Self - patient is the insured Medical [...] 08/07/2021 biopsy, bladder 04/29/2023 stent implant 09/27/24 throat procedure 02/16/25 Hospitalization History Reason Date(Month/Year) [facility]-Stomach pain ? IBS 1 night stay 10/12 20 [facility]- Obstruction 10/12 [facility]- Gastric Bypass Sx 02/10/19
[2025-02-18 06:17] LABS: MANUAL DIFF FLAG NO
[2025-02-18 08:02] LABS: Hematocrit 33.4 % (37.0-47.0); Hemoglobin 10.4 g/dl (12.0-16.0); Imm Gran Abs Auto 0.01 X10*3/uL (0.00-0.03); Imm Gran Pct Auto 0.2 % (0.0-0.4); Lymphocytes Absolute Auto 1.0 X10*3/uL (1.2-4.9); Mean Corpuscular HGB Conc 31.1 g/dl (31.0-35.0); Mean Corpuscular Hemoglobin 25.9 pg (27.0-33.0); Mean Corpuscular Volume 83.3 fL (80.0-98.0); NRBC Abs Auto 0.000 X10*3/uL (0.0-0.012); NRBC Pct Auto 0.0 /100WBC (0.0-0.2); Platelet Count 166 X10*3/uL (160-400); Red Blood Count 4.01 X10*6/uL (4.20-5.50); White Blood Count 4.5 X10*3/uL (4.8-10.8)
[2025-02-18 08:19] LABS: Alanine Aminotransferase 40 U/L (0-31); Albumin Level 4.1 g/dL (3.5-5.0); Alkaline Phosphatase 142 U/L (39-117); Anion Gap 8 (12-20); Aspartate Amino Transferase 36 U/L (5-31); Blood Urea Nitrogen 17 mg/dL (9-16); Calcium 8.3 mg/dL (8.4-10.2); Carbon Dioxide 27 mmol/L (22-29); Chloride 110 mmol/L (96-108); Cholesterol 167 mg/dL (<200); Estimated Glomerular Filt Rate > 60; HDL Cholesterol 45 mg/dL (>40); Potassium 4.4 mmol/L (3.3-5.1); Sodium 141 mmol/L (135-145); Total Protein 6.4 g/dL (6.5-8.0); Triglycerides 81 mg/dL (<150)
== END 2025-02-18 06:03 | disposition home or self-care (01) ==
LOC: HO.LAB 06:02
PROVIDERS: PCP Internal Medicine; Visit Provider Internal Medicine
DX: G90.513 Complex regional pain syndrome I of upper limb, bilateral (principal); I10 Essential (primary) hypertension; R13.10 Dysphagia, unspecified
CPT/HCPCS: 36415; 80053; 80061; 85025

== ENCOUNTER 2025-03-03 09:12 | Outpatient (REF) | payer OTHER, SELFPAY ==
[2025-03-03 10:47] LABS: Appearance Urine Turbid; Glucose Urine UA Negative (Negative); PH 5.5 (5.0-9.0); Specific Gravity - Urine 1.020 (1.005-1.025); UMIC TRIGGER UA YES
== END 2025-03-03 09:13 | disposition home or self-care (01) ==
LOC: HO.LAB 09:12
PROVIDERS: PCP Internal Medicine; Visit Provider Nurse Practitioner Family
DX: N39.0 Urinary tract infection, site not specified (principal); R35.0 Frequency of micturition
CPT/HCPCS: 81001; 87086; 87088; 87147; 87186